=== PATIENT | female | born 1975 | race Caucasian/White ===

== ENCOUNTER → 2016-05-08 | Outpatient (CLI) | payer OTHER ==
[~2016-05-08] MED LIST: PRT40 PO; VTMD PO; ZTHM250 PO
--- NOTE | 2016-05-08 12:53 | DIAGNOSTIC IMAGING REPORT ---
CHEST 2 VIEWS ROUTINE CLINICAL HISTORY: Cough. COMPARISON STUDY: Chest radiograph March 04, 2016. FINDINGS: Lung volumes are normal. There is no pneumothorax or pleural effusion. Pulmonary vascularity is normal. Cardiac size is normal. Linear bibasilar opacities favor atelectasis. There is opacity along the right minor fissure. There is hazy right lower lung opacity. IMPRESSION: Increasing bibasilar opacities, predominantly linear in configuration. The linear opacities are consistent with atelectasis. Hazy right lower lung opacity likely reflects atelectasis although a mild infectious process could appear similar. Electronically signed by: Babatunde Back M.D. 05/08/2016 12:51 PM Dictated Date/Time: 05/08/2016 12:49 PM
[2016-05-08 13:23] LABS: BASO % 0.5 %; BASO ABS # 0.04 K/uL (0-0.2); COMPLETE YES; EOS % 3.5 %; HEMATOCRIT 42.9 % (37-47); IG% 0.1 %; LYMPH % 29.6 %; LYMPH ABS # 2.17 K/uL (1.2-3.4); MEAN CORPUSCULAR HEMOGLOBIN 28.5 pg (25-34); MEAN CORPUSCULAR HGB CONC 33.6 g/dl (32-36); MEAN PLATELET VOLUME 10.1 fL (7.4-10.4); MONO % 7.4 %; NEUT % 58.9 %; PLATELET COUNT 196 K/uL (130-400); RED BLOOD COUNT 5.05 M/uL (4.2-5.4); WHITE BLOOD COUNT 7.34 K/uL (4.8-10.8)
[2016-05-08 17:42] LABS: AST/SGOT 28 U/L (15-37); BLOOD UREA NITROGEN 6 mg/dl (7-18); BUN/CREATININE RATIO 12.8 (10-20); CALCIUM 9.5 mg/dl (8.5-10.1); CARBON DIOXIDE 25 mmol/L (21-32); CHLORIDE 107 mmol/L (98-107); CREATININE 0.49 mg/dl (0.60-1.20); GLUCOSE 106 mg/dl (70-99); SODIUM 142 mmol/L (136-145)
[2016-05-08 17:45] LABS: ALB/GLOB RATIO 0.9 (0.9-2); ALKALINE PHOSPHATASE 167 U/L (45-117); ALT/SGPT 37 U/L (12-78)
== END | disposition home or self-care (01) ==
LOC: C.RAD1850 11:52
PROVIDERS: ATTEND Internal Medicine
DX: R05 Cough (principal)

== ENCOUNTER 2016-06-12 15:18 | Inpatient (IN) | payer OTHER ==
[~2016-06-12] VITALS: Ht 162.6 cm; Wt 48.5 kg
[2016-06-12] VITALS (10 sets, daily range): BP systolic 112–120; BP diastolic 76–78; PULSE 65–101; TEMP 36.5–36.7; O2SAT 88–99; Ht 162.6 cm; Wt 48.5 kg
[~2016-06-12 15:18] MED LIST changes: +MIDAZOLAM HCL 1 MG/ML 2ML VIAL ONE; -PRT40 PO; -VTMD PO; -ZTHM250 PO
--- NOTE | 2016-06-12 16:00 | Endo History and Physical ---
History & Physical Date of Service: Jun 12, 2016. Chief Complaint: Duodenal ulcer Referring Physician: Dr. Alicea History of Present Illness 40 yo CF who presents for EGD secondary to duodenal ulcer. Past Surgical History Hx Cardiac Surgery: No Hx Internal Defibrillator: No Hx Pacemaker: No Hx Abdominal Surgery: No Hx Post-Op Nausea and Vomiting: No Hx Cancer Surgery: No Hx Thoracic Surgery: No Hx Orthopedic: No Hx Urinary Tract Surgery: No Social History Smoking Status: Current Every Day Smoker Hx Substance Use: No Hx Alcohol Use: No Allergies Coded Allergies: No Known Allergies (Verified , 03/21/16) Current Medications Reported Home Medications Medications Dose Route/Sig Max Daily Dose Days Date Category No Active Prescriptions or Reported Medications Rx Vital Signs Weight (Kilograms): 46 Height (Feet): 5 Height (Inches): 4 Date Time Temp Pulse Resp B/P Pulse Ox O2 Delivery O2 Flow Rate FiO2 06/12/16 15:36 36.4 90 16 121/79 97 Room Air Physical Exam General Appearance: WD/WN, no apparent distress Respiratory/Chest: Auscultation: breath sounds normal Cardiovascular: Heart Auscultation: RRR Abdomen: Bowel Sounds: normal Inspection & Palpation: soft, non-distended, no tenderness, guarding & rebound Assessment and Plan Assessment: 40 yo CF who presents for EGD secondary to duodenal ulcer. Plan: Proceed with EGD.
[2016-06-12] MEDS ORDERED: FLUMAZENIL 0.1 MG/1 ML 10 ML VIAL IV ONE (16:47)
--- NOTE | 2016-06-12 16:47 | DIAGNOSTIC IMAGING REPORT ---
CHEST ONE VIEW PORTABLE CLINICAL HISTORY: hypoxia dyspnea COMPARISON STUDY: 05/08/2016 FINDINGS: Interval left lower lobe infiltrate. Lungs otherwise appear clear. Diaphragms smooth. IMPRESSION: Left lower lobe infiltrate Electronically signed by: Aquilino Diallo M.D. 06/12/2016 4:45 PM Dictated Date/Time: 06/12/2016 4:45 PM
[2016-06-12] MEDS ORDERED: PROPOFOL IV EMULSION 10 MG/ML 20 ML VIAL IV ONE (16:48)
[2016-06-12] MEDS ORDERED: LIDOCAINE HCL 2% 2 ML VIAL (20MG/ML) ONE (16:48)
--- NOTE | 2016-06-12 17:12 | GI REPORT ---
Procedure Date: 06/12/2016 3:53 PM Procedure: Upper GI endoscopy Indications: Follow-up of acute duodenal ulcer Medicines: Monitored Anesthesia Care Complications: Hypoxia with persistent O2 sats in mid-80's despite [id number]. CXRay showed LLL infiltrate Contacted Dr. Garcia of Hospitalist team for Admission Estimated Blood Loss: Estimated blood loss: none. Procedure: Pre-Anesthesia Assessment: - Prior to the procedure, a History and Physical was performed, and patient medications and allergies were reviewed. The patient's tolerance of previous anesthesia was also reviewed. The risks and benefits of the procedure and the sedation options and risks were discussed with the patient. All questions were answered, and informed consent was obtained. Prior Anticoagulants: The patient has taken no previous anticoagulant or antiplatelet agents. ASA Grade Assessment: II - A patient with mild systemic disease. After reviewing the risks and benefits, the patient was deemed in satisfactory condition to undergo the procedure. After obtaining informed consent, the endoscope was passed under direct vision. Throughout the procedure, the patient's blood pressure, pulse, and oxygen saturations were monitored continuously. The Scope was introduced through the mouth, and advanced to the second part of duodenum. The upper GI endoscopy was accomplished without difficulty. The patient tolerated the procedure well. Findings: The esophagus was normal. A small hiatus hernia was present. The examined duodenum was normal. Impression: - Normal esophagus. - Small hiatus hernia. - Normal examined duodenum. - No specimens collected. Recommendation: - Resume previous diet. - Continue present medications. - Admit the patient to ICU for ongoing care. Nicolas Alejandro, DO 06/12/2016 5:11:29 PM This report has been signed electronically. Note Initiated On: 06/12/2016 3:53 PM I attest to the content of the Intraoperative Record and orders documented therein, exceptions below
[2016-06-12] MEDS ORDERED: SODIUM CHLORIDE 0.9% 1000ML 1,000 ML IV SCH (17:30)
[2016-06-12] MEDS ORDERED: ACETAMINOPHEN 325 MG TAB PO PRN (17:45)
[2016-06-12] MEDS ORDERED: ONDANSETRON INJ 2 MG/ML 2 ML VIAL IV PRN (17:45)
[2016-06-12 17:48] LABS: ISTAT ALLEN TEST Pass; ISTAT ARTERIAL BLOOD GAS HCO3 25 meq/L (19-24); ISTAT ARTERIAL BLOOD GAS PCO2 49 mmHg (35-46); ISTAT ARTERIAL BLOOD GAS PO2 46 mmHg (80-95); ISTAT ARTERIAL BLOOD GAS pH 7.33 (7.35-7.45); ISTAT CARBON DIOXIDE 27 mEq/l (24-31); ISTAT DELIVERY SYSTEM NonRb Mask; ISTAT FIO2 100 %; ISTAT SITE R Radial
[2016-06-12 17:48] LABS: ISTAT ALLEN TEST Pass; ISTAT ARTERIAL BLOOD GAS HCO3 28 meq/L (19-24); ISTAT ARTERIAL BLOOD GAS PCO2 60 mmHg (35-46); ISTAT ARTERIAL BLOOD GAS PO2 < 32 mmHg (80-95); ISTAT ARTERIAL BLOOD GAS pH 7.27 (7.35-7.45); ISTAT CARBON DIOXIDE 30 mEq/l (24-31); ISTAT DELIVERY SYSTEM NonRb Mask; ISTAT FIO2 100 %; ISTAT SITE R Radial
[2016-06-12 17:50] LABS: BASO % 0.2 %; BASO ABS # 0.02 K/uL (0-0.2); HEMATOCRIT 41.6 % (37-47); IG% 0.4 %; LYMPH % 24.9 %; LYMPH ABS # 2.59 K/uL (1.2-3.4); MEAN CELL VOLUME 87.8 fL (80-100); MEAN CORPUSCULAR HEMOGLOBIN 28.9 pg (25-34); MEAN PLATELET VOLUME 8.9 fL (7.4-10.4); MONO % 4.9 %; NEUT % 66.6 %; PLATELET COUNT 303 K/uL (130-400); RED BLOOD COUNT 4.74 M/uL (4.2-5.4); WHITE BLOOD COUNT 10.41 K/uL (4.8-10.8)
[2016-06-12 17:52] LABS: COMPLETE YES; MEAN CORPUSCULAR HGB CONC 32.9 g/dl (32-36)
--- NOTE | 2016-06-12 18:15 | Anesthesiology Progress Note ---
Anesthesia Post Op Note Date & Time Jun 12, 2016 at 17:49 Vital Signs Pain Intensity: 0 Vital Signs Past 12 Hours Date Time Temp Pulse Resp B/P Pulse Ox O2 Delivery O2 Flow Rate FiO2 06/12/16 17:46 85 91 100 06/12/16 17:45 85 17 91 BiPAP/CPAP 100 06/12/16 17:41 81 135/89 95 BiPAP 06/12/16 17:15 81 16 126/76 87 Non-Rebreather 15 06/12/16 16:50 79 16 113/78 89 Non-Rebreather 15 06/12/16 16:30 89 16 106/61 86 Mask 15 06/12/16 16:15 102 16 111/60 84 Mask 15 06/12/16 15:36 36.4 90 16 121/79 97 Room Air Notes Mental Status: alert / awake / arousable, participated in evaluation Pt Amnestic to Procedure: Yes Nausea / Vomiting: adequately controlled Pain: adequately controlled Airway Patency, RR, SpO2: see Notes BP & HR: stable & adequate Hydration State: stable & adequate Pt had EGD for f/u for duodenal ulcer under IV sedation. Pre-op, she appeared a little drowsy. She said that she slept all day and that this was her baseline. She appeared cachectic, her breathing appeared to be a little shallow, and her breath sounds were diminished b/l but clear. Pre-op sat 98% on RA. She is a 1 PPD smoker. She was appropriately NPO. The procedure was uneventful. Her sat was 99% on 10 L facemask during the procedure. Dr. Alejandro did have to suction a large amount of secretions from the oropharynx and esophagus during the procedure but there was no obvious aspiration event. Upon arrival in post-op recovery, she was noted to be hypoxic w/ sat of 85% on 10 L facemask. She was slightly more drowsy at this point than pre-op so we gave 0.2 mg flumazenil to reverse the midazolam she had received at the start of the procedure. She quickly became as awake as she was pre-op (if not more), talking, responsive. She said that she felt fine, no SOB, same as pre-op, same as her normal baseline. I ordered a CXR and switched her to a non-rebreathing facemask. On 15 L, her sat was 88%. We had her use an incentive spirometer. Her sat improved as high as 91% but then returned to the mid-high 90s. I spoke to Dr. Alejandro and decided to ask Medicine to see the pt. Dr. Garcia arrived soon thereafter. The CXR read came back as LLL infiltrate. Dr. Garcia wanted BiPAP, ABG, CBC, BMP, EKG, urine tox. In order to facilitate this, he asked a Johnnie Purple to be called. With BiPAP, the pt's sat improved to 97%. She's being admitted to Telemetry. BP and HR were always normal and stable. The etiology of the hypoxia is not certain, but I believe that an occult aspiration is most likely given the sudden onset after a procedure, the copious secretions seen during the procedure, and the LLL infiltrate (pt positioned on L side during the EGD). The pt is a smoker so will likely have an exaggerated response to even a tiny, subclinical aspirate. Dr. Garcia is starting the pt on prophylactic antibiotics.
[2016-06-12 18:24] LABS: ALB/GLOB RATIO 0.8 (0.9-2); ALKALINE PHOSPHATASE 253 U/L (45-117); ALT/SGPT 32 U/L (12-78); AST/SGOT 17 U/L (15-37); BLOOD UREA NITROGEN 4 mg/dl (7-18); BUN/CREATININE RATIO 8.6 (10-20); CALCIUM 9.3 mg/dl (8.5-10.1); CARBON DIOXIDE 26 mmol/L (21-32); CHLORIDE 109 mmol/L (98-107); CKMB/CK RATIO 2.1 (0-3.0); CREATININE 0.42 mg/dl (0.60-1.20); GLUCOSE 95 mg/dl (70-99); MAGNESIUM 2.3 mg/dl (1.8-2.4); POTASSIUM 4.1 mmol/L (3.5-5.1); SODIUM 144 mmol/L (136-145)
[2016-06-12] MEDS: LEVALBUTEROL 1.25MG/0.5ML NEB INH SCH (20:03)
[2016-06-12] MEDS: IPRATROPIUM BROMIDE NEB SOLN 0.02% 2.5 ML VIAL INH SCH (20:03)
[2016-06-12] MEDS ORDERED: LEVALBUTEROL/IPRATROPIUM NEB INH SCH (21:00)
[2016-06-12] MEDS ORDERED: VANCOMYCIN CONSULT ACTIVE PRN (21:30)
[2016-06-12] MEDS ORDERED: IPRATROPIUM BROMIDE NEB SOLN 0.02% 2.5 ML VIAL INH PRN (21:30)
[2016-06-12] MEDS ORDERED: LEVALBUTEROL 1.25MG/0.5ML NEB INH PRN (21:30)
--- NOTE | 2016-06-12 21:47 | Pharmacy Progress Note ---
Pharmacy Antibiotic Consult Date of Service: Jun 12, 2016. Pharmacy Dosing Scope Pharmacy is consulted to initiate [] IV dosing therapy, order appropriate labs and adjust drug dose/frequency. Subjective The patient is a 40 year old female admitted on Jun 12, 2016 at 17:31 ORDERED broad spectrum antibiotics (Vanc/Clinda/Aztreonam) for pulmonary source infection. Objective Height (Feet): 5 Height (Inches): 4 Weight (Kilograms): 46 Lab Results (24hrs): Laboratory Tests Test 06/12/16 17:40 BUN/Creatinine Ratio 8.6 Blood Urea Nitrogen 4 mg/dl Creatinine 0.42 mg/dl White Blood Count 10.41 K/uL Red Blood Count 4.74 M/uL Hemoglobin 13.7 g/dL Hematocrit 41.6 % Mean Corpuscular Volume 87.8 fL Mean Corpuscular Hemoglobin 28.9 pg Mean Corpuscular Hemoglobin Concent 32.9 g/dl Platelet Count 303 K/uL Mean Platelet Volume 8.9 fL Neutrophils (%) (Auto) 66.6 % Lymphocytes (%) (Auto) 24.9 % Monocytes (%) (Auto) 4.9 % Eosinophils (%) (Auto) 3.0 % Basophils (%) (Auto) 0.2 % Neutrophils # (Auto) 6.94 K/uL Lymphocytes # (Auto) 2.59 K/uL Monocytes # (Auto) 0.51 K/uL Eosinophils # (Auto) 0.31 K/uL Basophils # (Auto) 0.02 K/uL Recent Pertinent Medications * Clinda 900mg IV every 8 hours * Aztreonam 2 grams IV every 8 hours Assessment & Plan VANC-IV: * P'kinetics: Estimate Vd~0.7L/kg, Ke~0.111hr-1, T1/2~6.2hrs * Loading dose: VANC 1250mg (~25 mg/kg) IV X 1 dose then: * Maintenance Dose: VANC 800mg (~15 mg/kg) IV every 10 hours. * Goal trough level estimate: between 15 - 20 mcg/mL. * VANC trough prior to 4 th dose 06/14/16 0330. Pharmacy will continue to follow and will adjust dose/frequency as necessary. Thank you
[2016-06-12] MEDS: AZTREONAM IV 2,000 MG in DEXTROSE 5% 100ML 100 ML IV SCH (21:59)
[2016-06-12] MEDS ORDERED: VANCOMYCIN INJ 1,250 MG in SODIUM CHLORIDE 0.9% 250ML 250 ML IV ONE (23:00)
[2016-06-12] MEDS: CLINDAMYCIN IV 900 MG in DEXTROSE 5% ADD-VANTAGE 100ML 100 ML IV SCH (23:10)
[2016-06-13] VITALS (78 sets, daily range): BP systolic 88–153; BP diastolic 53–103; PULSE 73–222; TEMP 36.7–38.4; O2SAT 73–100
[2016-06-13 00:35] LABS: BASO % 0.1 %; BASO ABS # 0.02 K/uL (0-0.2); COMPLETE YES; EOS % 0.6 %; HEMATOCRIT 41.7 % (37-47); IG% 0.5 %; LYMPH ABS # 2.45 K/uL (1.2-3.4); MEAN CELL VOLUME 89.7 fL (80-100); MEAN CORPUSCULAR HEMOGLOBIN 29.7 pg (25-34); MEAN CORPUSCULAR HGB CONC 33.1 g/dl (32-36); MEAN PLATELET VOLUME 9.2 fL (7.4-10.4); NEUT % 83.8 %; PLATELET COUNT 352 K/uL (130-400); RED BLOOD COUNT 4.65 M/uL (4.2-5.4); WHITE BLOOD COUNT 22.35 K/uL (4.8-10.8)
[2016-06-13 00:43] LABS: IPAP 16; ISTAT ALLEN TEST Pass; ISTAT ARTERIAL BLOOD GAS HCO3 22 meq/L (19-24); ISTAT ARTERIAL BLOOD GAS PCO2 36 mmHg (35-46); ISTAT ARTERIAL BLOOD GAS PO2 81 mmHg (80-95); ISTAT ARTERIAL BLOOD GAS pH 7.39 (7.35-7.45); ISTAT CARBON DIOXIDE 23 mEq/l (24-31); ISTAT DELIVERY SYSTEM BIPAP; ISTAT FIO2 100 %; ISTAT SITE R Radial
[2016-06-13 00:49] LABS: BLOOD UREA NITROGEN 5 mg/dl (7-18); BUN/CREATININE RATIO 9.4 (10-20); CARBON DIOXIDE 25 mmol/L (21-32); CHLORIDE 109 mmol/L (98-107); CREATININE 0.48 mg/dl (0.60-1.20); GLUCOSE 152 mg/dl (70-99); SODIUM 145 mmol/L (136-145)
[2016-06-13 00:54] LABS: CKMB/CK RATIO 2.3 (0-3.0)
[2016-06-13] MEDS ORDERED: RAPID SEQUENCE INDUCTION BAG ONE (01:05)
[2016-06-13] MEDS ORDERED: SODIUM BICARB 8.4% INJ 50 MEQ/50 ML SYR - CCU EMERGENCY DRUG IV ONE (01:10)
[2016-06-13] MEDS ORDERED: PROPOFOL IV EMULSION 10 MG/ML 100 ML VIAL IV ONE (01:16)
[2016-06-13] MEDS ORDERED: NURSING VERBAL MED ORDER ONE (01:17)
[2016-06-13 01:20] LABS: BENZODIAZEPINE, URINE POS (NEG); COCAINE,URINE NEG (NEG); PHENCYCLIDINE, URINE NEG (NEG)
[2016-06-13] MEDS ORDERED: PHENYLEPHRINE IV PUSH KIT FOR ED IV ONE (01:54)
[2016-06-13 01:59] LABS: ISTAT ALLEN TEST Pass; ISTAT ARTERIAL BLOOD GAS HCO3 25 meq/L (19-24); ISTAT ARTERIAL BLOOD GAS PCO2 52 mmHg (35-46); ISTAT ARTERIAL BLOOD GAS PO2 55 mmHg (80-95); ISTAT CARBON DIOXIDE 27 mEq/l (24-31); ISTAT DELIVERY SYSTEM Ventilator; ISTAT FIO2 100 %; ISTAT PEEP 10; ISTAT RATE 16; ISTAT SITE R Radial; VE 5.8; Vt 400
--- NOTE | 2016-06-13 02:43 | Procedure Note ---
Procedure Note Procedure Date: 06/13/2016 Procedure: Endotracheal intubation Pre-procedure Diagnosis: Hypoxic respiratory failure Post-procedure Diagnosis: same as above Prior to Procedure: Informed Consent: emergent Attending Staff: Babs Dolan DO Indications: Hypoxic respiratory failure despite BiPAP and onto percent FiO2 The identity of the patient was confirmed and a bedside time out was performed. Anesthesia: 20 mg etomidate, 100 mg fentanyl, 40 mg succinylcholine Description of Procedure: Patient was evaluated and required intubation for respiratory failure. The patient was prepared in the usual fashion. A laryngoscope [place] 2 was used. A 7.5 Fr endotrachial tube was placed via direct laryngoscopy to 25 cm at the teeth. The endotracheal tube was noted to pass through the vocal cords. Chest rise was bilateral. Bilateral breath sounds were heard without air sounds in the abdomen. Grade 1 view was obtained. Mist was noted in the endotrachial tube. End-tidal CO2 measurement was positive. Chest x-ray shows proper endotrachial tube placement. Complications: None Findings: not applicable Specimens: not applicable Estimated blood loss: Zero
--- NOTE | 2016-06-13 02:46 | Procedure Note ---
Procedure Note Procedure date: 06/13/2016 Procedure: fiberoptic bronchoscopy Pre-procedure Diagnosis: Collapse of left lower lobe Post-procedure Diagnosis: same as above Prior to Procedure: Informed Consent: The risks, benefits, indications, potential complications, and alternatives were explained to the patient and informed consent obtained verbally. Attending Staff: Babs Dolan DO Skin Prep: Not applicable Anesthesia: Propofol continuous infusion, 100 g fentanyl Indications: Hypoxic respiratory failure despite 100% FiO2 as well as noninvasive mechanical ventilation. The identity of the patient was confirmed and a bedside time out was performed. Description of Procedure: Fiberoptic bronchoscopy was performed via endotracheal tube. Bronchioalveolar lavage was performed. Findings included: Significant tenacious mucopurulent secretions of the left lower lobe. 260 mL's of saline was utilized and lavage. Bronchial washings were sent. Patient had significant improvement and was satting 100% via 40% FiO2 immediately postprocedure Complications: None Specimens: Bronchial washing sent to lab for cytology culture and Gram stain, AFB, influenza Estimated blood loss: Zero
[2016-06-13] MEDS: IPRATROPIUM BROMIDE NEB SOLN 0.02% 2.5 ML VIAL INH SCH ×5 (02:57→19:06)
[2016-06-13] MEDS: LEVALBUTEROL 1.25MG/0.5ML NEB INH SCH ×5 (02:57→19:06)
[2016-06-13] MEDS: ACETYLCYSTEINE 20% INHAL SOLN ***DISPENSED BY RESP. INH SCH ×2 (02:57→07:59)
--- NOTE | 2016-06-13 03:04 | Critical Care Consultation ---
Critical Care Consultation Date of Consultation: Jun 13, 2016. Attending Physician: Sam Garcia M.D. Reason for Consultation: Acute hypoxic respiratory failure, atelectasis of left lower lobe History of Present Illness History is obtained from prior records, patient in extremis. Patient is a 40- year-old female who underwent an elective EGD earlier in the day for a history of a duodenal ulcer. She is noted to have hypoxia following the procedure and was admitted to the hospital for continued monitoring. I was consult is for higher persistent hypoxia despite noninvasive mechanical ventilation and 100% FiO2 with sats in the mid 80s. This was confirmed by blood gas. Upon my initial evaluation the patient was in obvious in extremis secondary to hypoxia, procedures including intubation and bronchoscopy were explained the patient she verbally consented, additionally emergent consent is implied. Patient was intubated, placed on 100% FiO2. Bronchoscopy was immediately undertaken and thick tenacious secretions were lavaged. Past Medical/Surgical History #1 history of duodenal ulcer #2 recent EGD #3 tobacco abuse Family History Heart disease Social History Smoking Status: Current Every Day Smoker Drug Use: none Marital Status: in relationship Housing Status: lives with family Occupation Status: unemployed Allergies Coded Allergies: No Known Allergies (Verified , 03/21/16) Home Medications No Active Prescriptions or Reported Meds Current Inpatient Medications Current Inpatient Medications Medications (Trade) Dose Ordered Sig/Oscar Route Start Time Stop Time Status Last Admin Dose Admin Clindamycin Phosphate/Dextrose (Cleocin Iv/ Dextrose Add-[place] 100ML) 106 ml @ 100 mls/hr Q8@0600,1400,2200 IV 06/12/16 22:00 06/19/16 21:59 06/12/16 23:10 100 MLS/HR Acetaminophen (Tylenol Tab) 650 mg Q4H PRN PO 06/12/16 17:45 07/12/16 17:44 Ondansetron HCl 4 mg 4 mg Q6H PRN IV 06/12/16 17:45 07/12/16 17:44 Aztreonam/Dextrose (Azactam IV/D5 100ml) 110 ml @ 100 mls/hr Q8@0400,1200,2000 IV 06/12/16 21:15 06/19/16 21:14 06/12/16 21:59 100 MLS/HR Vancomycin HCl (Consult) 1 ea UD PRN N/A 06/12/16 21:30 07/12/16 21:29 Ipratropium Onia (Atrovent 0.02% 0.5MG/2.5ML Neb) 0.5 mg Q6R INH 06/13/16 03:00 07/13/16 02:59 06/12/16 20:03 0.5 MG Levalbuterol (Xopenex 1.25MG/ 0.5ML Neb) 1.25 mg Q6R INH 06/13/16 03:00 07/13/16 02:59 06/12/16 20:03 1.25 MG Ipratropium Onia (Atrovent 0.02% 0.5MG/2.5ML Neb) 0.5 mg Q2H PRN INH 06/12/16 21:30 07/12/16 21:29 06/12/16 23:49 0.5 MG Levalbuterol (Xopenex 1.25MG/ 0.5ML Neb) 1.25 mg Q2H PRN INH 06/12/16 21:30 07/12/16 21:29 06/12/16 23:49 1.25 MG Influenza Virus Vaccine Quadrival (Flu Vaccine) 0.5 ml ONCE ONCE IM. 06/13/16 09:00 06/13/16 09:01 Pneumococcal Polysaccharide Vaccine 25 mcg 25 mcg ONCE ONCE IM. 06/13/16 09:00 06/13/16 09:01 Vancomycin HCl/ Sodium Chloride (Vancomycin Inj/ Nss 250ml) 266 ml @ 125 mls/hr Q10H IV 06/13/16 08:00 06/20/16 07:59 Acetylcysteine 4 ml 4 ml Q4H INH 06/13/16 02:45 07/13/16 02:44 UNV Parenteral Electrolyte Solution (Normosol R) 1,000 ml @ 100 mls/hr Q10H IV 06/13/16 02:45 07/13/16 02:44 UNV Review of Systems Unable to obtain due to patient condition Physical Exam Date Time Temp Pulse Resp B/P Pulse Ox O2 Delivery O2 Flow Rate FiO2 06/13/16 00:10 37.2 98 20 135/71 06/13/16 00:00 36.9 06/12/16 23:59 BiPAP 100 06/12/16 23:54 98 22 116/78 93 BiPAP 100 06/12/16 23:50 89 100 06/12/16 23:49 101 20 89 BiPAP/CPAP 100 06/12/16 23:43 88 100 06/12/16 20:05 71 99 100 06/12/16 20:03 71 20 99 BiPAP/CPAP 100 06/12/16 20:00 BiPAP 06/12/16 20:00 36.5 65 20 120/78 99 BiPAP 06/12/16 18:45 36.7 77 18 112/76 99 BiPAP 100 77 06/12/16 17:46 85 91 100 06/12/16 17:45 85 17 91 BiPAP/CPAP 100 06/12/16 17:41 81 135/89 95 BiPAP 06/12/16 17:15 81 16 126/76 87 Non-Rebreather 15 06/12/16 16:50 79 16 113/78 89 Non-Rebreather 15 06/12/16 16:30 89 16 106/61 86 Mask 15 06/12/16 16:15 102 16 111/60 84 Mask 15 06/12/16 15:36 36.4 90 16 121/79 97 Room Air General Appearance: severe distress, thin Head: normocephalic, atraumatic Eyes: PERRLA, no discharge ENT: normal mouth exam, normal throat exam, other (significant widespread dental caries) Neck: normal range of motion, no tenderness, trachea midline Respiratory: other (no breath sounds obtained of her left lower lobe) Cardiovasular: regular rate/rhythm, normal S1S2, no M/G/R Abdomen: non tender, normal bowel sounds Genitourinary - Female: external genitalia normal Upper Extremities: no edema Lower Extremities: no edema Pulses: radial (R) (2+), radial (L) (2+), femoral (R) (2+), femoral (L) (2+) Neuro: lethargic Laboratory Results Last 24 Hours Test 06/12/16 17:31 06/12/16 17:35 06/12/16 17:40 06/12/16 23:00 Blood Gas Sample Site R Radial R Radial Bedside Blood Gas pH (LAB) 7.27 7.33 Bedside Blood Gas pCO2 (LAB) 60 mmHg 49 mmHg Bedside Blood Gas pO2 (LAB) < 32 mmHg 46 mmHg Bedside Blood Gas HCO3 (LAB) 28 meq/L 25 meq/L Bedside Blood Gas Total CO2 30 mEq/l 27 mEq/l Bedside Blood Gas Base Excess (LAB) 1.0 meq/L -1.0 meq/L Bedside Blood Gas O2 Saturation 50.0 % 78.0 % Salbador Test Pass Pass Oxygen Delivery Device NonRb Mask NonRb Mask Bedside FiO2 100 % 100 % White Blood Count 10.41 K/uL Red Blood Count 4.74 M/uL Hemoglobin 13.7 g/dL Hematocrit 41.6 % Mean Corpuscular Volume 87.8 fL Mean Corpuscular Hemoglobin 28.9 pg Mean Corpuscular Hemoglobin Concent 32.9 g/dl Platelet Count 303 K/uL Mean Platelet Volume 8.9 fL Neutrophils (%) (Auto) 66.6 % Lymphocytes (%) (Auto) 24.9 % Monocytes (%) (Auto) 4.9 % Eosinophils (%) (Auto) 3.0 % Basophils (%) (Auto) 0.2 % Neutrophils # (Auto) 6.94 K/uL Lymphocytes # (Auto) 2.59 K/uL Monocytes # (Auto) 0.51 K/uL Eosinophils # (Auto) 0.31 K/uL Basophils # (Auto) 0.02 K/uL RDW Standard Deviation 53.0 fL RDW Coefficient of Variation 16.4 % Immature Granulocyte % (Auto) 0.4 % Immature Granulocyte # (Auto) 0.04 K/uL Sodium Level 144 mmol/L Potassium Level 4.1 mmol/L Chloride Level 109 mmol/L Carbon Dioxide Level 26 mmol/L Anion Gap 9.0 mmol/L Blood Urea Nitrogen 4 mg/dl Creatinine 0.42 mg/dl Est Creatinine Clear Calc Drug Dose 129.3 ml/min Estimated GFR () 148.6 Estimated GFR (Non- 128.2 BUN/Creatinine Ratio 8.6 Random Glucose 95 mg/dl Calcium Level 9.3 mg/dl Magnesium Level 2.3 mg/dl Total Bilirubin 0.3 mg/dl Aspartate Amino Transf (AST/SGOT) 17 U/L Alanine Aminotransferase (ALT/SGPT) 32 U/L Alkaline Phosphatase 253 U/L Total Creatine Kinase 118 U/L Creatine Kinase MB 2.5 ng/ml Creatine Kinase MB Ratio 2.1 Troponin I < 0.015 ng/ml Total Protein 7.5 gm/dl Albumin 3.4 gm/dl Globulin 4.1 gm/dl Albumin/Globulin Ratio 0.8 Urine Opiates Screen NEG Urine Methadone, Qualitative NEG Urine Barbiturates NEG Urine Phencyclidine (PCP) Level NEG Ur Amphetamine/Methamphetamine NEG MDMA (Ecstasy) Screen NEG Urine Benzodiazepines Screen POS Urine Cocaine Metabolite NEG Urine Marijuana (THC) POS Test 06/13/16 00:20 06/13/16 00:26 06/13/16 01:46 06/13/16 02:46 White Blood Count 22.35 K/uL Red Blood Count 4.65 M/uL Hemoglobin 13.8 g/dL Hematocrit 41.7 % Mean Corpuscular Volume 89.7 fL Mean Corpuscular Hemoglobin 29.7 pg Mean Corpuscular Hemoglobin Concent 33.1 g/dl Platelet Count 352 K/uL Mean Platelet Volume 9.2 fL Neutrophils (%) (Auto) 83.8 % Lymphocytes (%) (Auto) 11.0 % Monocytes (%) (Auto) 4.0 % Eosinophils (%) (Auto) 0.6 % Basophils (%) (Auto) 0.1 % Neutrophils # (Auto) 18.73 K/uL Lymphocytes # (Auto) 2.45 K/uL Monocytes # (Auto) 0.90 K/uL Eosinophils # (Auto) 0.14 K/uL Basophils # (Auto) 0.02 K/uL RDW Standard Deviation 53.9 fL RDW Coefficient of Variation 16.4 % Immature Granulocyte % (Auto) 0.5 % Immature Granulocyte # (Auto) 0.11 K/uL Sodium Level 145 mmol/L Potassium Level 4.0 mmol/L Chloride Level 109 mmol/L Carbon Dioxide Level 25 mmol/L Anion Gap 11.0 mmol/L Blood Urea Nitrogen 5 mg/dl Creatinine 0.48 mg/dl Est Creatinine Clear Calc Drug Dose 123.7 ml/min Estimated GFR () 142.2 Estimated GFR (Non- 122.7 BUN/Creatinine Ratio 9.4 Random Glucose 152 mg/dl Lactic Acid Level 1.3 mmol/L Calcium Level 9.0 mg/dl Total Creatine Kinase 111 U/L Creatine Kinase MB 2.5 ng/ml Creatine Kinase MB Ratio 2.3 Troponin I < 0.015 ng/ml Blood Gas Sample Site R Radial R Radial Bedside Blood Gas pH (LAB) 7.39 7.30 Bedside Blood Gas pCO2 (LAB) 36 mmHg 52 mmHg Bedside Blood Gas pO2 (LAB) 81 mmHg 55 mmHg Bedside Blood Gas HCO3 (LAB) 22 meq/L 25 meq/L Bedside Blood Gas Total CO2 23 mEq/l 27 mEq/l Bedside Blood Gas Base Excess (LAB) -3.0 meq/L -1.0 meq/L Bedside Blood Gas O2 Saturation 96.0 % 83.0 % Salbador Test Pass Pass Oxygen Delivery Device BIPAP Ventilator Bedside FiO2 100 % 100 % Blood Gas IPAP 16 Bedside Oxygen Rate (breaths/min) 16 Blood Gas Minute Ventilation 5.8 Blood Gas Tidal Volume 400 Blood Gas PEEP 10 Assessment & Plan (1) Tobacco abuse (2) Acute respiratory insufficiency, postoperative (3) Atelectasis of left lung (4) Acute respiratory failure with hypoxia (5) History of esophagogastroduodenoscopy (EGD) (6) Marijuana smoker Neuro: Propofol for sedation Cardiovascular: Cardiac monitoring Respiratory: May require repeat bronchoscopy, mechanical ventilator settings tidal volume 400 PEEP of 15 FiO2 of 60% - Mucomyst nebs as well as bronchodilators - Aggressive chest physiotherapy Abdomen: - Nothing by mouth NG tube in place Renal: -Fluids 100 MLS per hour Endocrine: - Accu-Cheks per protocol Infectious disease - On vancomycin and clindamycin aztreonam - Await BAL results - Check influenza from bronchial washings Hematology - Currently menstruating - Prophylaxis I have personally spent 40 minutes of critical care time in the direct management of this patient. This is a life/limb threatening event. This includes time spent evaluating patient, direct bedside care, chart review, placing orders, interpretation of diagnostic studies, discussion with consultants, patient, and family members, as well as other required patient management activities. This time is exclusive of all separately billable procedures, and teaching time and separate from and in addition to any other critical care service time.
[2016-06-13 03:29] LABS: ISTAT ALLEN TEST Pass; ISTAT ARTERIAL BLOOD GAS HCO3 25 meq/L (19-24); ISTAT ARTERIAL BLOOD GAS PCO2 69 mmHg (35-46); ISTAT ARTERIAL BLOOD GAS PO2 127 mmHg (80-95); ISTAT ARTERIAL BLOOD GAS pH 7.15 (7.35-7.45); ISTAT CARBON DIOXIDE 27 mEq/l (24-31); ISTAT DELIVERY SYSTEM Ventilator; ISTAT FIO2 60 %; ISTAT PEEP 15; ISTAT RATE 16; ISTAT SITE R Radial; VE 7.3; Vt 400
[2016-06-13] MEDS: NORMOSOL R 1,000 ML IV SCH ×3 (03:42→23:30)
--- NOTE | 2016-06-13 03:49 | History and Physical ---
History & Physical Date & Time of Service: Jun 13, 2016 at 03:40 Chief Complaint: Doudenal Ulcer Primary Care Physician: Loyd Alicea M.D. History of Present Illness Source: patient The patient is a 40-year-old female who underwent an EGD in the endoscopy suite at the hospital, who became hypoxic with O2 sat into the upper 70s, and with improvement with arm percent nonrebreather into the 86-87 range. I was called to the endoscopy suite assessed the patient, who reported that she did not feel she is having any difficulty breathing, and has not had any issues with shortness of breath in the past or required any inhalers. Chest x-ray ordered by the endoscopy suite revealed a left lower lobe pneumonia when compared to previous chest x-rays, and plans were made to admit the patient to the telemetry unit for further treatment. Because of her declining condition, a code bhavana was called, she was placed on BiPAP, and then admitted to the telemetry unit. Past Medical/Surgical History Medical Problems: (1) Arthritis Status: Chronic (2) Scoliosis Status: Chronic Family History Heart disease Social History Smoking Status: Current Every Day Smoker Drug Use: none Marital Status: in relationship Housing status: lives with family Occupational Status: unemployed Multi-Drug Resistant Organisms History of MDRO: No Allergies Coded Allergies: No Known Allergies (Verified , 03/21/16) Home Medications No Active Prescriptions or Reported Meds Review of Systems The patient denies chest pain, palpitations, shortness of breath, cough, lower extremity swelling, vision change, hearing change, sore throat, fevers, chills, sweats, weight change, fatigue, nausea, vomiting, abdominal pain, pelvic pain, blood in urine or stool, dysuria, urinary frequency or urgency, lightheadedness , dizziness, headache, memory loss, rash, abnormal bruising or bleeding, imbalance, focal or generalized weakness, numbness or tingling in arms or legs, arthralgias or myalgias, back or neck pain, night sweats, or allergy symptoms. The review of systems is otherwise negative other than for that already noted above, and at least 10 systems have been reviewed. Physical Exam Vital Signs Date Time Temp Pulse Resp B/P Pulse Ox O2 Delivery O2 Flow Rate FiO2 06/13/16 03:15 60 06/13/16 02:57 16 92 Mechanical Ventilator 60 06/13/16 01:30 100 06/13/16 00:10 37.2 98 20 135/71 06/13/16 00:00 36.9 06/12/16 23:59 BiPAP 100 06/12/16 23:54 98 22 116/78 93 BiPAP 100 06/12/16 23:50 89 100 06/12/16 23:49 101 20 89 BiPAP/CPAP 100 06/12/16 23:43 88 100 06/12/16 20:05 71 99 100 06/12/16 20:03 71 20 99 BiPAP/CPAP 100 06/12/16 20:00 BiPAP 06/12/16 20:00 36.5 65 20 120/78 99 BiPAP 06/12/16 18:45 36.7 77 18 112/76 99 BiPAP 100 77 06/12/16 17:46 85 91 100 06/12/16 17:45 85 17 91 BiPAP/CPAP 100 06/12/16 17:41 81 135/89 95 BiPAP 06/12/16 17:15 81 16 126/76 87 Non-Rebreather 15 06/12/16 16:50 79 16 113/78 89 Non-Rebreather 15 06/12/16 16:30 89 16 106/61 86 Mask 15 06/12/16 16:15 102 16 111/60 84 Mask 15 06/12/16 15:36 36.4 90 16 121/79 97 Room Air The patient is awake, alert and oriented 3, appears cachectic, sitting upright in bed, and in mild to moderate respiratory distress. HEENT--PERRL, EOMI, mucous membranes and oropharynx dry, very poor dentition noted. Neck--supple, no JVD or bruits, thyroid normal, trachea midline, no adenopathy. Heart--normal S1 and S2, no extra beats, no murmurs, rubs or gallops. Lungs--decreased breath sounds at bilateral bases, mild respiratory distress, no accessory muscle use. Abdomen--normal bowel sounds and soft, nontender and nondistended, no hernias or masses, no organomegaly. Extremities--no cyanosis, clubbing or edema. There are good distal pulses b/l. Dermatologic--normal skin turgor, normal color, warm and dry, no abnormal lymph nodes, no rash. Neurologic--cranial nerves II through XII grossly intact, motor and sensory examination normal. Rheumatologic--normal range of motion, nontender, muscles and joints. Psychiatric--flat affect. Diagnostics Laboratory Results Results Past 24 Hours Test 06/12/16 17:31 06/12/16 17:35 06/12/16 17:40 06/12/16 23:00 Range/Units Blood Gas Sample Site R Radial R Radial Bedside Blood Gas pH (LAB) 7.27 7.33 7.35-7.45 Bedside Blood Gas pCO2 (LAB) 60 49 35-46 mmHg Bedside Blood Gas pO2 (LAB) < 32 46 80-95 mmHg Bedside Blood Gas HCO3 (LAB) 28 25 19-24 meq/L Bedside Blood Gas Total CO2 30 27 24-31 mEq/l Bedside Blood Gas Base Excess (LAB) 1.0 -1.0 -9-1.8 meq/L Bedside Blood Gas O2 Saturation 50.0 78.0 90-95 % Salbador Test Pass Pass Oxygen Delivery Device NonRb Mask NonRb Mask Bedside FiO2 100 100 % White Blood Count 10.41 4.8-10.8 K/uL Red Blood Count 4.74 4.2-5.4 M/uL Hemoglobin 13.7 12.0-16.0 g/dL Hematocrit 41.6 37-47 % Mean Corpuscular Volume 87.8 80-100 fL Mean Corpuscular Hemoglobin 28.9 25-34 pg Mean Corpuscular Hemoglobin Concent 32.9 32-36 g/dl Platelet Count 303 130-400 K/uL Mean Platelet Volume 8.9 7.4-10.4 fL Neutrophils (%) (Auto) 66.6 % Lymphocytes (%) (Auto) 24.9 % Monocytes (%) (Auto) 4.9 % Eosinophils (%) (Auto) 3.0 % Basophils (%) (Auto) 0.2 % Neutrophils # (Auto) 6.94 1.4-6.5 K/uL Lymphocytes # (Auto) 2.59 1.2-3.4 K/uL Monocytes # (Auto) 0.51 0.11-0.59 K/uL Eosinophils # (Auto) 0.31 0-0.5 K/uL Basophils # (Auto) 0.02 0-0.2 K/uL RDW Standard Deviation 53.0 36.4-46.3 fL RDW Coefficient of Variation 16.4 11.5-14.5 % Immature Granulocyte % (Auto) 0.4 % Immature Granulocyte # (Auto) 0.04 0.00-0.02 K/uL Sodium Level 144 136-145 mmol/L Potassium Level 4.1 3.5-5.1 mmol/L Chloride Level 109 98-107 mmol/L Carbon Dioxide Level 26 21-32 mmol/L Anion Gap 9.0 3-11 mmol/L Blood Urea Nitrogen 4 7-18 mg/dl Creatinine 0.42 0.60-1.20 mg/dl Est Creatinine Clear Calc Drug Dose 129.3 ml/min Estimated GFR () 148.6 Estimated GFR (Non- 128.2 BUN/Creatinine Ratio 8.6 10-20 Random Glucose 95 70-99 mg/dl Calcium Level 9.3 8.5-10.1 mg/dl Magnesium Level 2.3 1.8-2.4 mg/dl Total Bilirubin 0.3 0.2-1 mg/dl Aspartate Amino Transf (AST/SGOT) 17 15-37 U/L Alanine Aminotransferase (ALT/SGPT) 32 12-78 U/L Alkaline Phosphatase 253 45-117 U/L Total Creatine Kinase 118 26-192 U/L Creatine Kinase MB 2.5 0.5-3.6 ng/ml Creatine Kinase MB Ratio 2.1 0-3.0 Troponin I < 0.015 0-0.045 ng/ml Total Protein 7.5 6.4-8.2 gm/dl Albumin 3.4 3.4-5.0 gm/dl Globulin 4.1 2.5-4.0 gm/dl Albumin/Globulin Ratio 0.8 0.9-2 Urine Opiates Screen NEG NEG Urine Methadone, Qualitative NEG NEG Urine Barbiturates NEG NEG Urine Phencyclidine (PCP) Level NEG NEG Ur Amphetamine/Methamphetamine NEG NEG MDMA (Ecstasy) Screen NEG NEG Urine Benzodiazepines Screen POS NEG Urine Cocaine Metabolite NEG NEG Urine Marijuana (THC) POS NEG Test 06/13/16 00:20 06/13/16 00:26 06/13/16 01:46 06/13/16 02:46 Range/Units White Blood Count 22.35 4.8-10.8 K/uL Red Blood Count 4.65 4.2-5.4 M/uL Hemoglobin 13.8 12.0-16.0 g/dL Hematocrit 41.7 37-47 % Mean Corpuscular Volume 89.7 80-100 fL Mean Corpuscular Hemoglobin 29.7 25-34 pg Mean Corpuscular Hemoglobin Concent 33.1 32-36 g/dl Platelet Count 352 130-400 K/uL Mean Platelet Volume 9.2 7.4-10.4 fL Neutrophils (%) (Auto) 83.8 % Lymphocytes (%) (Auto) 11.0 % Monocytes (%) (Auto) 4.0 % Eosinophils (%) (Auto) 0.6 % Basophils (%) (Auto) 0.1 % Neutrophils # (Auto) 18.73 1.4-6.5 K/uL Lymphocytes # (Auto) 2.45 1.2-3.4 K/uL Monocytes # (Auto) 0.90 0.11-0.59 K/uL Eosinophils # (Auto) 0.14 0-0.5 K/uL Basophils # (Auto) 0.02 0-0.2 K/uL RDW Standard Deviation 53.9 36.4-46.3 fL RDW Coefficient of Variation 16.4 11.5-14.5 % Immature Granulocyte % (Auto) 0.5 % Immature Granulocyte # (Auto) 0.11 0.00-0.02 K/uL Sodium Level 145 136-145 mmol/L Potassium Level 4.0 3.5-5.1 mmol/L Chloride Level 109 98-107 mmol/L Carbon Dioxide Level 25 21-32 mmol/L Anion Gap 11.0 3-11 mmol/L Blood Urea Nitrogen 5 7-18 mg/dl Creatinine 0.48 0.60-1.20 mg/dl Est Creatinine Clear Calc Drug Dose 123.7 ml/min Estimated GFR () 142.2 Estimated GFR (Non- 122.7 BUN/Creatinine Ratio 9.4 10-20 Random Glucose 152 70-99 mg/dl Lactic Acid Level 1.3 0.4-2.0 mmol/L Calcium Level 9.0 8.5-10.1 mg/dl Total Creatine Kinase 111 26-192 U/L Creatine Kinase MB 2.5 0.5-3.6 ng/ml Creatine Kinase MB Ratio 2.3 0-3.0 Troponin I < 0.015 0-0.045 ng/ml Blood Gas Sample Site R Radial R Radial Bedside Blood Gas pH (LAB) 7.39 7.30 7.35-7.45 Bedside Blood Gas pCO2 (LAB) 36 52 35-46 mmHg Bedside Blood Gas pO2 (LAB) 81 55 80-95 mmHg Bedside Blood Gas HCO3 (LAB) 22 25 19-24 meq/L Bedside Blood Gas Total CO2 23 27 24-31 mEq/l Bedside Blood Gas Base Excess (LAB) -3.0 -1.0 -9-1.8 meq/L Bedside Blood Gas O2 Saturation 96.0 83.0 90-95 % Salbador Test Pass Pass Oxygen Delivery Device BIPAP Ventilator Bedside FiO2 100 100 % Blood Gas IPAP 16 Bedside Oxygen Rate (breaths/min) 16 Blood Gas Minute Ventilation 5.8 Blood Gas Tidal Volume 400 Blood Gas PEEP 10 Test 06/13/16 03:15 06/13/16 03:20 Range/Units Blood Gas Sample Site R Radial Bedside Blood Gas pH (LAB) 7.15 7.35-7.45 Bedside Blood Gas pCO2 (LAB) 69 35-46 mmHg Bedside Blood Gas pO2 (LAB) 127 80-95 mmHg Bedside Blood Gas HCO3 (LAB) 25 19-24 meq/L Bedside Blood Gas Total CO2 27 24-31 mEq/l Bedside Blood Gas Base Excess (LAB) -5.0 -9-1.8 meq/L Bedside Blood Gas O2 Saturation 98.0 90-95 % Salbador Test Pass Oxygen Delivery Device Ventilator Bedside Oxygen Rate (breaths/min) 16 Blood Gas Minute Ventilation 7.3 Bedside FiO2 60 % Blood Gas Tidal Volume 400 Blood Gas PEEP 15 Microbiology Results 06/13/16 Fungal Smear, Received Pending 06/13/16 Fungal Culture, Received Pending 06/13/16 Acid Fast Stain, Received Pending 06/13/16 Mycobacterial Culture, Received Pending 06/13/16 Gram Stain, Received Pending 06/13/16 Bronchoalveolar Lavage Culture, Received Pending Diagnostic Radiology Patient Name: IAN RENDON Unit Number: [id number] Dictated: 06/12/161644 Transcribed: 06/12/161644 MS Printed Date/Time: [~ rep prt dt]/[~ rep prt tm] [~ rep ct labl] - [~ rep ct ivnm] [facility] [place] [address] Dictated: 06/12/161644 Transcribed: 02/16/17 1645 MS Printed Date/Time: [~ rep prt dt]/[~ rep prt tm] [~ rep ct labl] - [~ rep ct ivnm] CHEST ONE VIEW PORTABLE CLINICAL HISTORY: hypoxia dyspnea COMPARISON STUDY: 05/08/2016 FINDINGS: Interval left lower lobe infiltrate. Lungs otherwise appear clear. Diaphragms smooth. IMPRESSION: Left lower lobe infiltrate Electronically signed by: Aquilino Diallo M.D. 06/12/2016 4:45 PM Dictated Date/Time: 06/12/2016 4:45 PM The status of this report is Signed. Draft = Not yet reviewed or approved by Radiologist. Signed = Reviewed and approved by Radiologist. <AttendingPhy>Nicolas Alejandro D.O.</AttendingPhy> <FamilyPhy>Loyd Alicea M.D.</FamilyPhy> <PrimaryPhy>Loyd Alicea M.D.</ PrimaryPhy> <UnitNumber>[id number]</UnitNumber> <VisitNumber>[id number]</ VisitNumber> <PatientName>IAN RENDON</PatientName> <DateOfBirth>1975 </DateOfBirth> <Location>[facility]</Location> <ServiceDate>06/12/16</ServiceDate> < MNE>ESINDI</MNE> <OrderingPhy>Nicolas Sierra M.D.</OrderingPhy> < OrderingPhyMNE>f rep ord dr enriquez</OrderingPhyMNE> <DictatingPhyMNE>f rep dict dr enriquez</DictatingPhyMNE> <CCListMNE>f rep ct mne</CCListMNE> <AdmittingPhyMNE>f pt admit dr enriquez</AdmittingPhyMNE> <AttendingPhyMNE>f pt attend dr enriquez</ AttendingPhyMNE> <ConsultingPhyMNE>f pt consult dr enriquez</ConsultingPhyMNE> <FamilyPhyMNE>f pt fam dr enriquez</FamilyPhyMNE> <OtherPhyMNE>f pt other dr enriquez</OtherPhyMNE> < PrimaryPhyMNE>f pt prim care dr enriquez</PrimaryPhyMNE> <ReferringPhyMNE>f pt referring dr enriquez</ReferringPhyMNE> EKG EKG shows normal sinus rhythm at 85 bpm, left bundle-branch block, no acute ST- T changes. Impression Assessment and Plan Acute respiratory failure with hypoxia/Left lower lobe pneumonia/probable aspiration during endoscopy/poor dentition--the patient willbe admitted to the telemetry unit on BiPAP. She'll be started vancomycin IV, clindamycin 900 mg IV every 8 hours, aztreonam 2000 mg IV every 8 hours, Xopenex with Atrovent nebulizers to use every 6 hours while awake and every 2 hours when necessary. We'll also follow serial cardiac enzymes. Emergent CBC with differential, chemistry profile, magnesium levels and cardiac enzymes have been sent during the code purple. Left bundle-branch block, noted on EKG with no other acute findings, we'll follow cardiac enzymes as noted. Duodenal ulcer history--she'll be kept nothing by mouth for now, and placed on Protonix [address] on normal saline at 80 ML's per hour until laboratories return. Level of Care Telemetry Advanced Directives Existing Advance Directive: No Existing Living Will: No Existing Power of Electronics Engineer: No Resuscitation Status FULL RESUSCITATION VTE Prophylaxis VTE Risk Assessment Done? Y/N: Yes Risk Level: Moderate Given or contraindicated: SCD's Social Service Consult None Apply
[2016-06-13] MEDS ORDERED: DIGOXIN INJ 500 MCG/2 ML AMP ONE (03:58)
[2016-06-13] MEDS: AZTREONAM IV 2,000 MG in DEXTROSE 5% 100ML 100 ML IV SCH ×2 (03:58→11:34)
[2016-06-13] MEDS: CLINDAMYCIN IV 900 MG in DEXTROSE 5% ADD-VANTAGE 100ML 100 ML IV SCH (05:13)
[2016-06-13] MEDS ORDERED: ACETAMINOPHEN IV 650 MG in EMPTY BAG 0 ML IV PRN (05:15)
--- NOTE | 2016-06-13 05:21 | Progress Note ---
Progress Note I was paged at approximately 23:34, on 06/12/2016. Patient was noted to be hypoxic, with oxygen saturations in the 70s while on BiPAP. Mrs. Pryor was admitted earlier in the day to telemetry, following an EGD procedure follow-up of duodenal ulcer; per report there were no abnormal findings. She was noted in the PACU to be hypoxic, and was initially placed on nasal cannula at 10 L. As this did not work she is progressed to facemask, and eventually BiPAP. Please see anesthesia progress note full course of events. She was transferred to telemetry on BiPAP settings 16/8, 100% FiO2. Into the evening, respiratory therapy was able to wean FiO2 down to 60% with oxygen saturations in the high 90s. However, at approximately 23:15, she was noted to be hypoxic, with saturations dropping into the 70s. Respiratory therapy increased FiO2 back to 100%, but were only able to improve oxygen saturation to the mid 80s I arrived at the to the bedside to assess the patient: SUBJECTIVE: The patient couldn't unfortunately not communicate, she had BiPAP on. She denied other chest pain or abdominal pain. OBJECTIVE: Item Value Date Time Fraction of Inspired Oxygen (FiO2) 100 % Oxygen 06/12/162353 Oxygen Delivery Method BiPAP 06/12/162353 Vital Signs Label Value Date Time Blood Pressure Assessment 116/78 06/12/162353 Location Left Arm Source NIBP Position Supine Respiratory Rate 22 06/12/162353 Pulse 98 06/12/162353 Location Radial Bedside Pulse Oximetry 93 % 06/12/162353 Oxygen saturation 88% Gen. inspection: Moderate distress, no pain Cardiac exam: S1 and S2 with no added sounds or murmurs. Heart sounds difficult to auscultate due to BiPAP. Respiratory exam: Diminished breath sounds at the left base; there is no evidence of wheezing Chest x-ray: Left lower lobe consolidation appears to have progressed, the left hemidiaphragm appears slightly elevated Possible presence of pleural effusion versus atelectasis at the left base There doesn't appear to be any evidence of free air under the diaphragm CT chest noncontrast: Left lower lobe atelectasis, secondary to mucous plugging versus aspiration ASSESSMENT/PLAN: 4-year-old female, status post EGD with postprocedure hypoxia with respiratory decompensation while on BiPAP. Chest x-ray did show progression of the left lower lobe opacification was diagnosed post-EGD earlier in the day. This most likely represents aspiration pneumonitis versus pneumonia Given that she is post-EGD, the concern would be for either esophageal perforation and chylothorax, or whether this was simply aspiration with mucus plugging. I did initially change her BiPAP settings to assist with alveolar recruitment at the left base. Her PEEP was increased from 8 -->10; pressure support remained at 16, FiO2 remained 100%. We did note that her oxygen saturations did improve to 92%. I discussed the case with Joshua Clark. More detailed imaging was warranted, so a stat chest CT without contrast was ordered. Stat read report indicated that there was left lower lobe collapse likely secondary to mucous plugging versus aspiration. Noncontrast CT of the abdomen was also done which fortunately ruled out perforation Patient was noted in the CT scanner, to desaturate into the 70s while lying supine. At this point we felt it was appropriate consult the resistance welder, Dr. Jose Moe, for intubation and possible bronchoscopy. Report was given to Dr. Moe over the phone, who excepted the patient to the ICU service. Patient was transferred immediately to the intensive care unit for further management.
[2016-06-13 05:38] LABS: ISTAT ALLEN TEST Pass; ISTAT ARTERIAL BLOOD GAS HCO3 24 meq/L (19-24); ISTAT ARTERIAL BLOOD GAS PCO2 61 mmHg (35-46); ISTAT ARTERIAL BLOOD GAS PO2 160 mmHg (80-95); ISTAT ARTERIAL BLOOD GAS pH 7.21 (7.35-7.45); ISTAT CARBON DIOXIDE 26 mEq/l (24-31); ISTAT DELIVERY SYSTEM Ventilator; ISTAT FIO2 60 %; ISTAT PEEP 15; ISTAT RATE 22; ISTAT SITE R Radial; Vt 400
[2016-06-13] MEDS ORDERED: PROPOFOL IV EMULSION 10 MG/ML 100 ML VIAL IV SCH (05:45)
[2016-06-13 06:43] LABS: BASO % 0.1 %; BASO ABS # 0.02 K/uL (0-0.2); COMPLETE YES; EOS % 0.1 %; HEMATOCRIT 38.4 % (37-47); IG% 0.2 %; LYMPH % 7.8 %; LYMPH ABS # 1.34 K/uL (1.2-3.4); MEAN CELL VOLUME 91.2 fL (80-100); MEAN CORPUSCULAR HEMOGLOBIN 29.5 pg (25-34); MEAN CORPUSCULAR HGB CONC 32.3 g/dl (32-36); MEAN PLATELET VOLUME 9.5 fL (7.4-10.4); NEUT % 86.8 %; PLATELET COUNT 285 K/uL (130-400); RED BLOOD COUNT 4.21 M/uL (4.2-5.4); WHITE BLOOD COUNT 17.23 K/uL (4.8-10.8)
[2016-06-13 06:50] LABS: INR 1.1 (0.9-1.1); PROTHROMBIN TIME (PATIENT) 11.3 SECONDS (9.0-12.0)
[2016-06-13 07:16] LABS: BUN/CREATININE RATIO 7.4 (10-20); CALCIUM 7.6 mg/dl (8.5-10.1); CREATININE 0.62 mg/dl (0.60-1.20); POTASSIUM 3.7 mmol/L (3.5-5.1)
--- NOTE | 2016-06-13 07:36 | DIAGNOSTIC IMAGING REPORT ---
CT OF THE ABDOMEN AND PELVIS WITHOUT CONTRAST CLINICAL HISTORY: Hypoxemia status post EGD. Duodenal ulcer. Evaluate for free air. COMPARISON STUDY: No previous studies for comparison. TECHNIQUE: Axial images of the abdomen and pelvis were obtained without IV contrast. Images were reviewed in the axial, sagittal, and coronal planes. FINDINGS: The chest will be reported separately. Lower lobe collapse with volume loss is better depicted on the chest CT. No pneumatosis, free air or portal venous gas is present. Evaluation of the abdomen and pelvis is suboptimal given the lack of IV and oral contrast. Unenhanced images of the liver, spleen, adrenal glands, kidneys and pancreas are normal. There is no evidence for a bowel obstruction calcifications adjacent to the proximal right ureter likely reflect phleboliths. A 3.1 cm suspected right ovarian cyst is noted. No suspicious osseous lesions are present. IMPRESSION: 1. No pneumoperitoneum. 2. Left lower lobe collapse, better depicted on the chest CT. Please see that report for further discussion. 3. 3.1 cm suspected right ovarian cyst. A follow-up pelvic ultrasound in 6 weeks to ensure resolution is recommended. Electronically signed by: Babatunde Back M.D. 06/13/2016 7:35 AM Dictated Date/Time: 06/13/2016 7:26 AM
--- NOTE | 2016-06-13 07:45 | DIAGNOSTIC IMAGING REPORT ---
SINGLE VIEW CHEST CLINICAL HISTORY: Dyspnea. Hypoxia. FINDINGS: An AP, portable, upright chest radiograph is compared to study dated 06/12/16. The examination is degraded by portable technique and patient rotation. The cardiomediastinal silhouette is unremarkable. There is unchanged elevation of the left hemidiaphragm with left basilar consolidation. Patchy airspace opacities are present in the left upper lung. The right lung appears clear. A left pleural effusion is suspected. No pneumothorax is seen. The skeletal structures are osteopenic. The bony thorax is grossly intact. IMPRESSION: 1. Unchanged elevation of the left hemidiaphragm with dense left basilar consolidation and pleural effusion. 2. More patchy airspace consolidation is seen in left upper lobe. Correlate clinically for evidence of an infectious/inflammatory pneumonitis. 3. The right lung appears clear. Electronically signed by: Titi Guidry M.D. 06/13/2016 7:44 AM Dictated Date/Time: 06/13/2016 7:42 AM
[2016-06-13] MEDS ORDERED: FENTANYL CITRATE INJ 50 MCG/1 ML 2 ML VIAL IV ONE (07:47)
[2016-06-13] MEDS ORDERED: SODIUM CHLORIDE 0.9% INJ 10 ML VIAL IV ONE (07:47)
[2016-06-13] MEDS ORDERED: SUCCINYLCHOLINE CHLORIDE 20 MG/ML 10 ML VIAL IV ONE (07:47)
[2016-06-13] MEDS ORDERED: ETOMIDATE 2 MG/ML 20 ML VIAL IV ONE (07:47)
[2016-06-13] MEDS ORDERED: SODIUM CHLORIDE 0.9% 10ML FLUSH IV ONE (07:47)
[2016-06-13] MEDS ORDERED: VECURONIUM BROMIDE 10 MG VIAL IV ONE (07:47)
[2016-06-13] MEDS ORDERED: VANCOMYCIN INJ 800 MG in SODIUM CHLORIDE 0.9% 250ML 250 ML IV SCH (08:00)
--- NOTE | 2016-06-13 08:03 | DIAGNOSTIC IMAGING REPORT ---
SINGLE VIEW CHEST CLINICAL HISTORY: Intubation. FINDINGS: An AP, portable, supine chest radiograph is compared to study dated 06/12/16 and correlated with chest CT performed the same day 06/13/2016. The examination is degraded by portable technique and patient rotation. An endotracheal tube has been placed. The tip projects 3.8 cm above the noris. An enteric tube has been placed and terminates below the diaphragm. The cardiomediastinal silhouette is unremarkable. There has been reexpansion of the left lung. Airspace consolidation is again noted throughout the left lung and a small left pleural effusion persists. The right lung is grossly clear. No pneumothorax is seen. The bony thorax is grossly intact. IMPRESSION: 1. Endotracheal and enteric tubes have been placed as detailed above. 2. There has been significant reexpansion of the left lower lobe as compared to yesterday's examination. 3. Airspace consolidation is again seen throughout the left lung and there is a small left pleural effusion. Electronically signed by: Titi Guidry M.D. 06/13/2016 8:01 AM Dictated Date/Time: 06/13/2016 7:59 AM
--- NOTE | 2016-06-13 08:04 | DIAGNOSTIC IMAGING REPORT ---
SINGLE VIEW CHEST CLINICAL HISTORY: Respiratory failure. FINDINGS: 2 AP, portable, upright chest radiographs are compared to chest x-ray and chest CT performed the same day 06/13/2016. The examination is degraded by portable technique and patient rotation, as well as by overlying monitor leads. Endotracheal and enteric tubes are unchanged in position. The cardiomediastinal silhouette is unremarkable. Patchy airspace consolidation is again seen throughout the left lung. A trace left pleural effusion persists. The right lung is grossly clear. No pneumothorax is seen. The bony thorax is grossly intact. IMPRESSION: 1. Stable lines and tubes. 2. Patchy airspace consolidation is again seen throughout the left lung. A trace left pleural effusion persists. Electronically signed by: Titi Guidry M.D. 06/13/2016 8:03 AM Dictated Date/Time: 06/13/2016 8:01 AM
--- NOTE | 2016-06-13 08:15 | Anesthesiology Progress Note ---
Anesthesia Post Op Note Date & Time Jun 13, 2016 at 08:12 Vital Signs Pain Intensity: 0.0 Vital Signs Past 12 Hours Date Time Temp Pulse Resp B/P Pulse Ox O2 Delivery O2 Flow Rate FiO2 06/13/16 05:25 60 06/13/16 05:09 108 110/59 100 06/13/16 05:04 60 06/13/16 05:03 100 104/62 100 06/13/16 04:58 100 102/58 100 06/13/16 04:53 100 105/62 100 06/13/16 04:48 101 109/62 100 06/13/16 04:45 100 100 06/13/16 04:43 101 115/65 100 06/13/16 04:38 102 117/65 100 06/13/16 04:33 111 140/79 100 06/13/16 04:28 100 112/73 88 06/13/16 04:23 100 112/68 06/13/16 04:18 112 122/85 06/13/16 04:13 222 105/64 96 06/13/16 04:08 100 110/72 82 06/13/16 04:03 97 100/67 100 06/13/16 04:00 Mechanical Ventilator 60 06/13/16 04:00 60 06/13/16 03:58 98 123/70 100 06/13/16 03:53 95 97/61 100 06/13/16 03:48 93 95/62 100 06/13/16 03:45 94 100 06/13/16 03:43 94 94/58 100 06/13/16 03:38 93 93/58 100 06/13/16 03:33 94 92/58 100 06/13/16 03:28 93 95/58 100 06/13/16 03:23 94 93/58 100 06/13/16 03:18 96 99/60 100 06/13/16 03:15 60 06/13/16 03:13 105 124/74 06/13/16 03:12 109 111/84 06/13/16 03:08 96 90/59 100 06/13/16 03:03 92 96/56 100 06/13/16 02:58 92 109/61 100 06/13/16 02:57 16 92 Mechanical Ventilator 60 06/13/16 02:53 97 109/70 100 06/13/16 02:48 100 116/82 100 06/13/16 02:45 90 113/64 98 06/13/16 02:33 93 118/73 89 06/13/16 02:28 90 104/66 91 06/13/16 02:23 83 88/53 98 06/13/16 02:20 85 93/57 100 06/13/16 02:18 88 103/66 96 06/13/16 02:18 88 103/66 96 06/13/16 02:13 83 93/55 100 06/13/16 02:08 83 97/61 100 06/13/16 02:03 81 115/81 06/13/16 02:00 94 87 06/13/16 01:58 99 143/86 85 06/13/16 01:53 86 91/58 89 06/13/16 01:48 98 129/89 91 06/13/16 01:44 88 97/70 73 06/13/16 01:43 88 100/72 78 06/13/16 01:38 96 113/76 83 06/13/16 01:33 92 102/61 84 06/13/16 01:30 100 06/13/16 01:28 95 153/103 80 06/13/16 01:23 113 116/79 87 06/13/16 01:18 106 113/70 92 06/13/16 01:13 118 118/75 82 06/13/16 01:08 115 119/77 79 06/13/16 01:06 117 120/77 79 06/13/16 01:04 122 120/77 78 06/13/16 00:10 37.2 98 20 135/71 06/13/16 00:00 36.9 06/12/16 23:59 BiPAP 100 06/12/16 23:54 98 22 116/78 93 BiPAP 100 06/12/16 23:50 89 100 06/12/16 23:49 101 20 89 BiPAP/CPAP 100 06/12/16 23:43 88 100 Notes Mental Status: see Notes Patient intubated during EGD and ventilated and bronched through the night.....improving steadily, will be extubated later this morning...vitals stable.
[2016-06-13] MEDS: ENOXAPARIN 30 MG/0.3 ML SYR SQ SCH (08:32)
--- NOTE | 2016-06-13 08:56 | DIAGNOSTIC IMAGING REPORT ---
CT SCAN OF THE CHEST WITHOUT IV CONTRAST CLINICAL HISTORY: Hypoxia. Status post endoscopy. COMPARISON STUDY: Chest x-ray dated 06/12/2016 and 05/08/2016. TECHNIQUE: CT scan of the thorax was performed from the thoracic inlet to the upper abdomen. Images are reviewed in the axial, sagittal, and coronal planes. IV contrast was not administered for this examination. CT DOSE: 202.95 mGy.cm FINDINGS: Thyroid: Imaged portions of the thyroid gland are normal in size and attenuation. Thoracic aorta: The thoracic aorta is normal in caliber and demonstrates standard 3-vessel arch anatomy. Heart: The heart is normal in size and without pericardial effusion. Lungs and pleural spaces: There is occlusion of the left lower lobe bronchus. There is associated atelectasis of the left lower lobe with elevation of the left hemidiaphragm. Patchy airspace consolidation is noted throughout the left upper lobe. A small left pleural effusion is identified. There is mild compensatory hyperinflation of the right lung. A 4 mm pulmonary nodule is seen in the right middle lobe on image #[id number]. The right lung is otherwise clear. Layering debris is noted in the trachea. Mediastinum: There is no mediastinal lymphadenopathy. Elizabeth: Not well assessed without IV contrast. Axillae: There is no axillary lymphadenopathy. Upper abdomen: Partially visualized upper abdominal viscera is within normal limits. Skeletal structures: No lytic or blastic bony lesions are seen. IMPRESSION: 1. There is occlusion of the left lower lobe bronchus with complete atelectasis/consolidation of the left lower lobe and elevation of the left hemidiaphragm. 2. Patchy airspace consolidation is seen throughout the left upper lobe and there is a left pleural effusion. This likely represents an infectious/inflammatory pneumonitis, possibly related to aspiration. 3. The right lung is clear. 4. A 4 mm right middle lobe pulmonary nodule is indeterminate but of low suspicion. This can be followed if clinically warranted. See below. Please refer to below summary of Fleischner criteria recommendations for follow-up of incidental CT nodules (Madie Benoit, Guidelines for management of small pulmonary nodules detected on CT scans: A statement from the Fleischner Society, Radiology 237: [phone].) Low Risk Patient: Minimal or no smoking or other known risk factors for malignancy <=4 mm: No follow-up needed. >4-6 mm: Initial follow-up CT at 12 months; if unchanged, no further follow-up. >6-8 mm: Initial follow-up CT at 6-12 months then at 18-24 months if no change. >8 mm: Follow-up CT at \R\3, 9, 24 months, or PET and/or biopsy. High Risk Patient: History of smoking or other known risk factors <=4 mm: Follow-up at 12 months; if unchanged, no further follow-up. >4-6 mm: Initial follow-up CT at 6-12 months then at 18-24 months if no change. >6-8 mm: Initial follow-up CT at 3-6 months then at 9-12 and 24 months if no change. >8 mm: Same as low risk patient. Note: Nodule size measured as average of length and width. Ground glass or partly solid nodules may require longer follow-up to exclude indolent adenocarcinoma. Electronically signed by: Titi Guidry M.D. 06/13/2016 8:55 AM Dictated Date/Time: 06/13/2016 8:49 AM
[2016-06-13] MEDS ORDERED: INFLUENZA ADMINISTRATION CHARGE ONE (09:00)
[2016-06-13] MEDS ORDERED: PNEUMOCOCCAL ADMINISTRATION CHARGE ONE (09:00)
[2016-06-13] MEDS ORDERED: PNEUMOCOCCAL POLYSACCHARIDES 25 MCG/0.5 ML VIAL/SYR IM. ONE (09:00)
[2016-06-13] MEDS ORDERED: INFLUENZA VIRUS QUAD VACCINE 0.5 ML SYR IM. ONE (09:00)
[2016-06-13 09:40] LABS: INFLUENZA A PCR Neg for Influ A (NEG); INFLUENZA B PCR Neg for Influ B (NEG)
--- NOTE | 2016-06-13 10:52 | Critical Care Progress Note ---
Critical Care Progress Note Date of Service Jun 13, 2016. ICU Day ICU Day Number: [address] Dolan Subjective Loulou Pryor is a 40-year-old female who presented in extreme respiratory distress several hours after an elective EGD for history of duodenal ulcer. Her hypoxia over the course the day continued to increase until she was ultimately referred here for the ICU with saturations in the mid 80s on 100% FiO2 via BiPAP. After confirming by ABG patient was intubated and brought by Dr. Dolan who stated that he lavaged thick secretions. This morning she met criteria to be extubated and is on Oxy-Mask at 12 L which is up approximately 57-89% FiO2. She appears extremely wiped out, arouses to verbal stimuli will answer questions by nodding her head with an occasional verbal response. She states that she is in no pain and is not short of breath. She states she does have a dry cough other than that she has no complaints. She denies fever and chills, chest pain or pressure, abdominal pain, numbness or tingling to the extremities. She continues nothing by mouth at this time due to excessive sleepiness/remaining sedation. A fever this morning of 38.4 broke after receiving IV Tylenol and is 37.2 now. Objective Vital Signs - as noted Laboratory Data - as noted Physical Exam: General - NAD, excessively worn out and lethargic Eyes - PERRL, EOMI No icterus, gaze conjugate ENT - Mucosa dry, no lesions or candidiasis Neck - Supple, trachea midline, no masses or lymphadenopathy, no JVD or bruits Lungs - No paradoxical chest wall movement, clear to auscultation bilaterally, no wheezes, rales, or rhonchi Heart - Reg rate and rhythm, No murmur, rubs, clicks, or gallops appreciated Abdomen - BS present, no bruits noted, tympanic to percussion, soft, nontender, nondistended, no organomegaly Extremities - No edema, pedal pulses intact Neuro - A&O X 4 Strength extremities equal and appropriate bilaterally CN:PERRL, EOMI, no facial asymmetry, uvula/tongue midline Assessment & Plan (1) Tobacco abuse (2) Acute respiratory insufficiency, postoperative (3) Atelectasis of left lung (4) Acute respiratory failure with hypoxia (5) History of esophagogastroduodenoscopy (EGD) (6) Marijuana smoker Reason Critically Ill: Patient is an 40-year-old female who is transferred to the ICU for increasing hypoxia status post elective EGD. She required bronchoscopy and lavage of thick secretions. PLAN: Neuro: * IV Tylenol in place for fever; may also be contributing to purine-free state according patient * Very drowsy but alert and oriented 4 Resp: * Continue to titrate down oxy-mask * Chest x-ray demonstrates patchy airspace consolidation left lung and trace left pleural effusion persists * Continue antibiotics, Bronchial Washing Cultures Pending * Vancomycin 800 mg IV every 10 hours * Clindamycin 900 mg IV every 8 hours * Aztreonam 2000 mg IV every 8 hours * Continue percussion vest and respiratory regimen * Mucomyst, Atrovent, Xopenex every 4 hours; when necessary's are also in place CV: * Continue to monitor on telemetry; slightly hypotensive currently SBP 105 Fluids/Renal: BUN: 5/Cr: 0.62, I&O's +1.5L * Howard in place; adequate output * Continue Normosol at 100 mL per hour * Monitor daily labs ID: Tmax 38.4, now 37.2, WBCs 17.23 (previously 22.35) * Continue antibiotics; pending bronchial washing Cultures * Vancomycin 800 mg IV every 10 hours * Clindamycin 900 mg IV every 8 hours * Aztreonam 2000 mg IV every 8 hours GI/Nutrition: * Continual IV fluids; consider restarting diet with bedside swallow when patient is more alert * Discontinue Protonix Prophylaxis, Now Extubated Heme: H&H 12.4/38.4; platelets 285 DVT prophylaxis: Lovenox 30 mg subcutaneous daily Endocrine: Glucose: 95-152 * Accu-Checks per protocol, started insulin infusion for 2 blood sugars greater than 180 CCT: 45 Minutes; This time is exclusive of all separately billable procedures. Thank you for involving us in the care of this patient. Please refer to Dr. Dolan's addendum for further recommendations. I have personally evaluated and examined this patient. I agree with assessment and plan of Diogenes Clancy PA-C. Patient extubated early this morning ABG significantly improved. Repeat chest x -ray demonstrated significant improvement in left lower lobe atelectasis. After extubation patient again becoming progressively hypoxic. Obtain CT chest to rule out pulmonary embolism, significant collapse of the left lower lobe again. Hepatic aggressive pulmonary toilet and chest physiotherapy. Reportedly the patient had been seen recently for pneumonia. On CT there is fluid in the esophagus, accordingly I am going to treat the patient with azithromycin for a community-acquired pneumonia which will also help with gastric emptying and possible dysmotility. I have also ordered dose of Reglan at this time. They're going to encourage ambulation, incentive spirometry, as well as a flutter valve in an effort to prevent further left lower lobe atelectasis. Patient is at risk for respiratory failure and possible requiring a subsequent bronchoscopy. The 45 minutes of critical care time is in addition to the 40 minutes performed from 1 AM to 3 AM this morning. Consults & Procedures Procedures: Intubated: 06/12/16 Bronchoscopy: 06/12/16 Extubated: 06/13/16 Data Medications: Current Inpatient Medications Medications (Trade) Dose Ordered Sig/Oscar Route Start Time Stop Time Status Last Admin Dose Admin Clindamycin Phosphate/Dextrose (Cleocin Iv/ Dextrose Add-[place] 100ML) 106 ml @ 100 mls/hr Q8@0600,1400,2200 IV 06/12/16 22:00 06/19/16 21:59 06/13/16 05:13 100 MLS/HR Acetaminophen (Tylenol Tab) 650 mg Q4H PRN PO 06/12/16 17:45 07/12/16 17:44 Ondansetron HCl 4 mg 4 mg Q6H PRN IV 06/12/16 17:45 07/12/16 17:44 Aztreonam/Dextrose (Azactam IV/D5 100ml) 110 ml @ 100 mls/hr Q8@0400,1200,2000 IV 06/12/16 21:15 06/19/16 21:14 06/13/16 03:58 100 MLS/HR Vancomycin HCl (Consult) 1 ea UD PRN N/A 06/12/16 21:30 07/12/16 21:29 Ipratropium [place] (Atrovent 0.02% 0.5MG/2.5ML Neb) 0.5 mg Q2H PRN INH 06/12/16 21:30 07/12/16 21:29 06/12/16 23:49 0.5 MG Levalbuterol 1.25 mg 1.25 mg Q2H PRN INH 06/12/16 21:30 07/12/16 21:29 06/12/16 23:49 1.25 MG Vancomycin HCl 800 mg/Sodium Chloride 266 ml @ 125 mls/hr Q10H IV 06/13/16 08:00 06/20/16 07:59 06/13/16 08:32 125 MLS/HR Parenteral Electrolyte Solution (Normosol R) 1,000 ml @ 100 mls/hr Q10H IV 06/13/16 03:30 07/13/16 03:29 06/13/16 03:42 100 MLS/HR Enoxaparin Sodium 30 mg 30 mg QAM SQ 06/13/16 09:00 07/13/16 08:59 06/13/16 08:32 30 MG Pantoprazole Sodium 40 mg/ Syringe 10 ml @ 5 mls/min DAILY@11 IV 06/13/16 11:00 07/13/16 10:59 Acetaminophen/ Empty Bag (Ofirmev IV/ Empty Iv Bag 100ml) 65 ml @ 260 mls/hr Q6H PRN IV 06/13/16 05:15 07/13/16 05:14 06/13/16 08:31 260 MLS/HR Propofol (Diprivan Iv Emulsion 100ml Vial) 1 dose UD IV 06/13/16 05:45 06/16/16 05:44 06/13/16 05:36 1 DOSE Ipratropium [place] (Atrovent 0.02% 0.5MG/2.5ML Neb) 0.5 mg Q4R INH 06/13/16 08:00 07/13/16 07:59 Levalbuterol (Xopenex 1.25MG/ 0.5ML Neb) 1.25 mg Q4R INH 06/13/16 08:00 07/13/16 07:59 I & O: 24-Hour Column 06/13/16 07:59 Intake Total 1762 ml Output Total 250 ml Balance 1512 ml Vital Signs: Date Time Temp Pulse Resp B/P Pulse Ox O2 Delivery O2 Flow Rate FiO2 06/13/16 10:00 37.2 74 16 103/57 96 Mask 12.0 06/13/16 08:30 40 06/13/16 08:00 60 06/13/16 08:00 40 06/13/16 08:00 38.4 86 20 94/56 97 Mechanical Ventilator 60 06/13/16 08:00 97 Mechanical Ventilator 60 06/13/16 07:55 86 97 06/13/16 05:25 60 06/13/16 05:09 108 110/59 100 06/13/16 05:04 60 06/13/16 05:03 100 104/62 100 06/13/16 04:58 100 102/58 100 06/13/16 04:53 100 105/62 100 06/13/16 04:48 101 109/62 100 06/13/16 04:45 100 100 06/13/16 04:43 101 115/65 100 06/13/16 04:38 102 117/65 100 06/13/16 04:33 111 140/79 100 06/13/16 04:28 100 112/73 88 06/13/16 04:23 100 112/68 06/13/16 04:18 112 122/85 06/13/16 04:13 222 105/64 96 06/13/16 04:08 100 110/72 82 06/13/16 04:03 97 100/67 100 06/13/16 04:00 Mechanical Ventilator 60 06/13/16 04:00 60 06/13/16 03:58 98 123/70 100 06/13/16 03:53 95 97/61 100 06/13/16 03:48 93 95/62 100 06/13/16 03:45 94 100 06/13/16 03:43 94 94/58 100 06/13/16 03:38 93 93/58 100 06/13/16 03:33 94 92/58 100 06/13/16 03:28 93 95/58 100 06/13/16 03:23 94 93/58 100 06/13/16 03:18 96 99/60 100 06/13/16 03:15 60 06/13/16 03:13 105 124/74 06/13/16 03:12 109 111/84 06/13/16 03:08 96 90/59 100 06/13/16 03:03 92 96/56 100 06/13/16 02:58 92 109/61 100 06/13/16 02:57 16 92 Mechanical Ventilator 60 06/13/16 02:53 97 109/70 100 06/13/16 02:48 100 116/82 100 06/13/16 02:45 90 113/64 98 06/13/16 02:33 93 118/73 89 06/13/16 02:28 90 104/66 91 06/13/16 02:23 83 88/53 98 06/13/16 02:20 85 93/57 100 06/13/16 02:18 88 103/66 96 06/13/16 02:18 88 103/66 96 06/13/16 02:13 83 93/55 100 06/13/16 02:08 83 97/61 100 06/13/16 02:03 81 115/81 06/13/16 02:00 94 87 06/13/16 01:58 99 143/86 85 06/13/16 01:53 86 91/58 89 06/13/16 01:48 98 129/89 91 06/13/16 01:44 88 97/70 73 06/13/16 01:43 88 100/72 78 06/13/16 01:38 96 113/76 83 06/13/16 01:33 92 102/61 84 06/13/16 01:30 100 06/13/16 01:28 95 153/103 80 06/13/16 01:23 113 116/79 87 06/13/16 01:18 106 113/70 92 06/13/16 01:13 118 118/75 82 06/13/16 01:08 115 119/77 79 06/13/16 01:06 117 120/77 79 06/13/16 01:04 122 120/77 78 06/13/16 00:10 37.2 98 20 135/71 06/13/16 00:00 36.9 06/12/16 23:59 BiPAP 100 06/12/16 23:54 98 22 116/78 93 BiPAP 100 06/12/16 23:50 89 100 06/12/16 23:49 101 20 89 BiPAP/CPAP 100 06/12/16 23:43 88 100 06/12/16 20:05 71 99 100 06/12/16 20:03 71 20 99 BiPAP/CPAP 100 06/12/16 20:00 BiPAP 06/12/16 20:00 36.5 65 20 120/78 99 BiPAP 06/12/16 18:45 36.7 77 18 112/76 99 BiPAP 100 77 06/12/16 17:46 85 91 100 06/12/16 17:45 85 17 91 BiPAP/CPAP 100 06/12/16 17:41 81 135/89 95 BiPAP 06/12/16 17:15 81 16 126/76 87 Non-Rebreather 15 06/12/16 16:50 79 16 113/78 89 Non-Rebreather 15 06/12/16 16:30 89 16 106/61 86 Mask 15 06/12/16 16:15 102 16 111/60 84 Mask 15 06/12/16 15:36 36.4 90 16 121/79 97 Room Air Laboratory Results: Last 24 Hours Test 06/12/16 17:31 06/12/16 17:35 06/12/16 17:40 06/12/16 23:00 Blood Gas Sample Site R Radial R Radial Bedside Blood Gas pH (LAB) 7.27 7.33 Bedside Blood Gas pCO2 (LAB) 60 mmHg 49 mmHg Bedside Blood Gas pO2 (LAB) < 32 mmHg 46 mmHg Bedside Blood Gas HCO3 (LAB) 28 meq/L 25 meq/L Bedside Blood Gas Total CO2 30 mEq/l 27 mEq/l Bedside Blood Gas Base Excess (LAB) 1.0 meq/L -1.0 meq/L Bedside Blood Gas O2 Saturation 50.0 % 78.0 % [place]ador Test Pass Pass Oxygen Delivery Device NonRb Mask NonRb Mask Bedside FiO2 100 % 100 % White Blood Count 10.41 K/uL Red Blood Count 4.74 M/uL Hemoglobin 13.7 g/dL Hematocrit 41.6 % Mean Corpuscular Volume 87.8 fL Mean Corpuscular Hemoglobin 28.9 pg Mean Corpuscular Hemoglobin Concent 32.9 g/dl Platelet Count 303 K/uL Mean Platelet Volume 8.9 fL Neutrophils (%) (Auto) 66.6 % Lymphocytes (%) (Auto) 24.9 % Monocytes (%) (Auto) 4.9 % Eosinophils (%) (Auto) 3.0 % Basophils (%) (Auto) 0.2 % Neutrophils # (Auto) 6.94 K/uL Lymphocytes # (Auto) 2.59 K/uL Monocytes # (Auto) 0.51 K/uL Eosinophils # (Auto) 0.31 K/uL Basophils # (Auto) 0.02 K/uL RDW Standard Deviation 53.0 fL RDW Coefficient of Variation 16.4 % Immature Granulocyte % (Auto) 0.4 % Immature Granulocyte # (Auto) 0.04 K/uL Sodium Level 144 mmol/L Potassium Level 4.1 mmol/L Chloride Level 109 mmol/L Carbon Dioxide Level 26 mmol/L Anion Gap 9.0 mmol/L Blood Urea Nitrogen 4 mg/dl Creatinine 0.42 mg/dl Est Creatinine Clear Calc Drug Dose 129.3 ml/min Estimated GFR () 148.6 Estimated GFR (Non- 128.2 BUN/Creatinine Ratio 8.6 Random Glucose 95 mg/dl Calcium Level 9.3 mg/dl Magnesium Level 2.3 mg/dl Total Bilirubin 0.3 mg/dl Aspartate Amino Transf (AST/SGOT) 17 U/L Alanine Aminotransferase (ALT/SGPT) 32 U/L Alkaline Phosphatase 253 U/L Total Creatine Kinase 118 U/L Creatine Kinase MB 2.5 ng/ml Creatine Kinase MB Ratio 2.1 Troponin I < 0.015 ng/ml Total Protein 7.5 gm/dl Albumin 3.4 gm/dl Globulin 4.1 gm/dl Albumin/Globulin Ratio 0.8 Urine Opiates Screen NEG Urine Methadone, Qualitative NEG Urine Barbiturates NEG Urine Phencyclidine (PCP) Level NEG Ur Amphetamine/Methamphetamine NEG MDMA (Ecstasy) Screen NEG Urine Benzodiazepines Screen POS Urine Cocaine Metabolite NEG Urine Marijuana (THC) POS Test 06/13/16 00:00 06/13/16 00:20 06/13/16 00:26 06/13/16 01:46 Influenza Type A (RT-PCR) Neg for Influ A Influenza Type B (RT-PCR) Neg for Influ B White Blood Count 22.35 K/uL Red Blood Count 4.65 M/uL Hemoglobin 13.8 g/dL Hematocrit 41.7 % Mean Corpuscular Volume 89.7 fL Mean Corpuscular Hemoglobin 29.7 pg Mean Corpuscular Hemoglobin Concent 33.1 g/dl Platelet Count 352 K/uL Mean Platelet Volume 9.2 fL Neutrophils (%) (Auto) 83.8 % Lymphocytes (%) (Auto) 11.0 % Monocytes (%) (Auto) 4.0 % Eosinophils (%) (Auto) 0.6 % Basophils (%) (Auto) 0.1 % Neutrophils # (Auto) 18.73 K/uL Lymphocytes # (Auto) 2.45 K/uL Monocytes # (Auto) 0.90 K/uL Eosinophils # (Auto) 0.14 K/uL Basophils # (Auto) 0.02 K/uL RDW Standard Deviation 53.9 fL RDW Coefficient of Variation 16.4 % Immature Granulocyte % (Auto) 0.5 % Immature Granulocyte # (Auto) 0.11 K/uL Sodium Level 145 mmol/L Potassium Level 4.0 mmol/L Chloride Level 109 mmol/L Carbon Dioxide Level 25 mmol/L Anion Gap 11.0 mmol/L Blood Urea Nitrogen 5 mg/dl Creatinine 0.48 mg/dl Est Creatinine Clear Calc Drug Dose 123.7 ml/min Estimated GFR () 142.2 Estimated GFR (Non- 122.7 BUN/Creatinine Ratio 9.4 Random Glucose 152 mg/dl Lactic Acid Level 1.3 mmol/L Calcium Level 9.0 mg/dl Total Creatine Kinase 111 U/L Creatine Kinase MB 2.5 ng/ml Creatine Kinase MB Ratio 2.3 Troponin I < 0.015 ng/ml Blood Gas Sample Site R Radial R Radial Bedside Blood Gas pH (LAB) 7.39 7.30 Bedside Blood Gas pCO2 (LAB) 36 mmHg 52 mmHg Bedside Blood Gas pO2 (LAB) 81 mmHg 55 mmHg Bedside Blood Gas HCO3 (LAB) 22 meq/L 25 meq/L Bedside Blood Gas Total CO2 23 mEq/l 27 mEq/l Bedside Blood Gas Base Excess (LAB) -3.0 meq/L -1.0 meq/L Bedside Blood Gas O2 Saturation 96.0 % 83.0 % [place] Test Pass Pass Oxygen Delivery Device BIPAP Ventilator Bedside FiO2 100 % 100 % Blood Gas IPAP 16 Bedside Oxygen Rate (breaths/min) 16 Blood Gas Minute Ventilation 5.8 Blood Gas Tidal Volume 400 Blood Gas PEEP 10 Test 06/13/16 03:15 06/13/16 05:19 06/13/16 05:55 06/13/16 09:16 Blood Gas Sample Site R Radial R Radial Bedside Blood Gas pH (LAB) 7.15 7.21 Bedside Blood Gas pCO2 (LAB) 69 mmHg 61 mmHg Bedside Blood Gas pO2 (LAB) 127 mmHg 160 mmHg Bedside Blood Gas HCO3 (LAB) 25 meq/L 24 meq/L Bedside Blood Gas Total CO2 27 mEq/l 26 mEq/l Bedside Blood Gas Base Excess (LAB) -5.0 meq/L -4.0 meq/L Bedside Blood Gas O2 Saturation 98.0 % 99.0 % [place] Test Pass Pass Oxygen Delivery Device Ventilator Ventilator Bedside Oxygen Rate (breaths/min) 16 22 Blood Gas Minute Ventilation 7.3 Bedside FiO2 60 % 60 % Blood Gas Tidal Volume 400 400 Blood Gas PEEP 15 15 White Blood Count 17.23 K/uL Red Blood Count 4.21 M/uL Hemoglobin 12.4 g/dL Hematocrit 38.4 % Mean Corpuscular Volume 91.2 fL Mean Corpuscular Hemoglobin 29.5 pg Mean Corpuscular Hemoglobin Concent 32.3 g/dl Platelet Count 285 K/uL Mean Platelet Volume 9.5 fL Neutrophils (%) (Auto) 86.8 % Lymphocytes (%) (Auto) 7.8 % Monocytes (%) (Auto) 5.0 % Eosinophils (%) (Auto) 0.1 % Basophils (%) (Auto) 0.1 % Neutrophils # (Auto) 14.96 K/uL Lymphocytes # (Auto) 1.34 K/uL Monocytes # (Auto) 0.86 K/uL Eosinophils # (Auto) 0.01 K/uL Basophils # (Auto) 0.02 K/uL RDW Standard Deviation 54.9 fL RDW Coefficient of Variation 16.5 % Immature Granulocyte % (Auto) 0.2 % Immature Granulocyte # (Auto) 0.04 K/uL Prothrombin Time 11.3 SECONDS Prothromb Time International Ratio 1.1 Sodium Level 145 mmol/L Potassium Level 3.7 mmol/L Chloride Level 110 mmol/L Carbon Dioxide Level 25 mmol/L Anion Gap 10.0 mmol/L Blood Urea Nitrogen 5 mg/dl Creatinine 0.62 mg/dl Est Creatinine Clear Calc Drug Dose 95.8 ml/min Estimated GFR () 130.7 Estimated GFR (Non- 112.8 BUN/Creatinine Ratio 7.4 Random Glucose 107 mg/dl Calcium Level 7.6 mg/dl Magnesium Level 2.0 mg/dl Creatine Kinase MB Ratio
--- NOTE | 2016-06-13 11:12 | Family Medicine Progress Note ---
Progress Note Date of Service Jun 13, 2016. Subjective Pt evaluation today including: conversation w/ patient, physical exam, chart review, lab review, review of studies Pain: reports thorat pain post-extubation PO Intake: NPO except ice chips and sips Voiding: layne catheter in place Pt was extubated at 8:45 AM . patient still seemed drowsy from sedation but was able to communicate. She denied SOB,cough, reported throat pain following tube removal. Constitutional: + fatigue, + weakness, No chills, No fever ENT: + sore throat (after extubation) Respiratory: No cough, No shortness of breath, No sputum Cardiovascular: No chest pain, No edema, No palpitations Abdomen: No diarrhea, No nausea, No pain, No vomiting Endo: No fatigue Skin: No itch, No rash Medications Current Inpatient Medications Medications (Trade) Dose Ordered Sig/Oscar Route Start Time Stop Time Status Last Admin Dose Admin Clindamycin Phosphate/Dextrose (Cleocin Iv/ Dextrose Add-Grants 100ML) 106 ml @ 100 mls/hr Q8@0600,1400,2200 IV 06/12/16 22:00 06/19/16 21:59 06/13/16 05:13 100 MLS/HR Acetaminophen (Tylenol Tab) 650 mg Q4H PRN PO 06/12/16 17:45 07/12/16 17:44 Ondansetron HCl 4 mg 4 mg Q6H PRN IV 06/12/16 17:45 07/12/16 17:44 Aztreonam/Dextrose (Azactam IV/D5 100ml) 110 ml @ 100 mls/hr Q8@0400,1200,2000 IV 06/12/16 21:15 06/19/16 21:14 06/13/16 03:58 100 MLS/HR Vancomycin HCl (Consult) 1 ea UD PRN N/A 06/12/16 21:30 07/12/16 21:29 Ipratropium [place] (Atrovent 0.02% 0.5MG/2.5ML Neb) 0.5 mg Q2H PRN INH 06/12/16 21:30 07/12/16 21:29 06/12/16 23:49 0.5 MG Levalbuterol 1.25 mg 1.25 mg Q2H PRN INH 06/12/16 21:30 07/12/16 21:29 06/12/16 23:49 1.25 MG Vancomycin HCl 800 mg/Sodium Chloride 266 ml @ 125 mls/hr Q10H IV 06/13/16 08:00 06/20/16 07:59 06/13/16 08:32 125 MLS/HR Parenteral Electrolyte Solution (Normosol R) 1,000 ml @ 100 mls/hr Q10H IV 06/13/16 03:30 07/13/16 03:29 06/13/16 03:42 100 MLS/HR Enoxaparin Sodium 30 mg 30 mg QAM SQ 06/13/16 09:00 07/13/16 08:59 06/13/16 08:32 30 MG Pantoprazole Sodium 40 mg/ Syringe 10 ml @ 5 mls/min DAILY@11 IV 06/13/16 11:00 07/13/16 10:59 Acetaminophen/ Empty Bag (Ofirmev IV/ Empty Iv Bag 100ml) 65 ml @ 260 mls/hr Q6H PRN IV 06/13/16 05:15 07/13/16 05:14 06/13/16 08:31 260 MLS/HR Propofol (Diprivan Iv Emulsion 100ml Vial) 1 dose UD IV 06/13/16 05:45 06/16/16 05:44 06/13/16 05:36 1 DOSE Ipratropium [place] (Atrovent 0.02% 0.5MG/2.5ML Neb) 0.5 mg Q4R INH 06/13/16 08:00 07/13/16 07:59 Levalbuterol (Xopenex 1.25MG/ 0.5ML Neb) 1.25 mg Q4R INH 06/13/16 08:00 07/13/16 07:59 Objective Vital Signs Date Time Temp Pulse Resp B/P Pulse Ox O2 Delivery O2 Flow Rate FiO2 06/13/16 10:00 37.2 74 16 103/57 96 Mask 12.0 06/13/16 08:30 40 06/13/16 08:00 60 06/13/16 08:00 40 06/13/16 08:00 38.4 86 20 94/56 97 Mechanical Ventilator 60 06/13/16 08:00 97 Mechanical Ventilator 60 06/13/16 07:55 86 97 06/13/16 05:25 60 17 05:09 108 110/59 100 17 05:04 60 17 05:03 100 104/62 100 17 04:58 100 102/58 100 06/13/17 04:53 100 105/62 100 17 04:48 101 109/62 100 17 04:45 100 100 17 04:43 101 115/65 100 17 04:38 102 117/65 100 17 04:33 111 140/79 100 17 04:28 100 112/73 88 17 04:23 100 112/68 17 04:18 112 122/85 17 04:13 222 105/64 96 17 04:08 100 110/72 82 17 04:03 97 100/67 100 17 04:00 Mechanical Ventilator 60 06/13/16 04:00 60 06/13/16 03:58 98 123/70 100 17 03:53 95 97/61 100 17 03:48 93 95/62 100 06/13/17 03:45 94 100 06/13/17 03:43 94 94/58 100 17 03:38 93 93/58 100 17 03:33 94 92/58 100 17 03:28 93 95/58 100 17 03:23 94 93/58 100 17 03:18 96 99/60 100 17 03:15 60 17 03:13 105 124/74 17 03:12 109 111/84 17 03:08 96 90/59 100 17 03:03 92 96/56 100 17 02:58 92 109/61 100 17 02:57 16 92 Mechanical Ventilator 60 17 02:53 97 109/70 100 17 02:48 100 116/82 100 06/13/17 02:45 90 113/64 98 06/13/17 02:33 93 118/73 89 17 02:28 90 104/66 91 2/17/17 02:23 83 88/53 98 06/13/16 02:20 85 93/57 100 06/13/16 02:18 88 103/66 96 06/13/16 02:18 88 103/66 96 06/13/16 02:13 83 93/55 100 06/13/16 02:08 83 97/61 100 06/13/16 02:03 81 115/81 06/13/16 02:00 94 87 06/13/16 01:58 99 143/86 85 06/13/16 01:53 86 91/58 89 06/13/16 01:48 98 129/89 91 06/13/16 01:44 88 97/70 73 06/13/16 01:43 88 100/72 78 06/13/16 01:38 96 113/76 83 06/13/16 01:33 92 102/61 84 06/13/16 01:30 100 06/13/16 01:28 95 153/103 80 06/13/16 01:23 113 116/79 87 06/13/16 01:18 106 113/70 92 06/13/16 01:13 118 118/75 82 06/13/16 01:08 115 119/77 79 06/13/16 01:06 117 120/77 79 06/13/16 01:04 122 120/77 78 06/13/16 00:10 37.2 98 20 135/71 06/13/16 00:00 36.9 06/12/16 23:59 BiPAP 100 06/12/16 23:54 98 22 116/78 93 BiPAP 100 06/12/16 23:50 89 100 06/12/16 23:49 101 20 89 BiPAP/CPAP 100 06/12/16 23:43 88 100 06/12/16 20:05 71 99 100 06/12/16 20:03 71 20 99 BiPAP/CPAP 100 06/12/16 20:00 BiPAP 06/12/16 20:00 36.5 65 20 120/78 99 BiPAP 06/12/16 18:45 36.7 77 18 112/76 99 BiPAP 100 77 06/12/16 17:46 85 91 100 06/12/16 17:45 85 17 91 BiPAP/CPAP 100 06/12/16 17:41 81 135/89 95 BiPAP 06/12/16 17:15 81 16 126/76 87 Non-Rebreather 15 06/12/16 16:50 79 16 113/78 89 Non-Rebreather 15 06/12/16 16:30 89 16 106/61 86 Mask 15 06/12/16 16:15 102 16 111/60 84 Mask 15 06/12/16 15:36 36.4 90 16 121/79 97 Room Air Physical Exam General Appearance: WD/WN, no apparent distress ( ) Eyes: normal inspection, PERRL, EOMI ENT: + pertinent finding (poor dentition) Neck: supple, no adenopathy, trachea midline Respiratory/Chest: lungs clear, normal breath sounds Cardiovascular: regular rate, rhythm, no edema, no murmur Abdomen: normal bowel sounds, non tender, soft Extremities: normal range of motion Skin: normal color, warm/dry, no rash Laboratory Results Results Past 24 Hours Test 06/12/16 17:31 06/12/16 17:35 06/12/16 17:40 06/12/16 23:00 Range/Units Blood Gas Sample Site R Radial R Radial Bedside Blood Gas pH (LAB) 7.27 7.33 7.35-7.45 Bedside Blood Gas pCO2 (LAB) 60 49 35-46 mmHg Bedside Blood Gas pO2 (LAB) < 32 46 80-95 mmHg Bedside Blood Gas HCO3 (LAB) 28 25 19-24 meq/L Bedside Blood Gas Total CO2 30 27 24-31 mEq/l Bedside Blood Gas Base Excess (LAB) 1.0 -1.0 -9-1.8 meq/L Bedside Blood Gas O2 Saturation 50.0 78.0 90-95 % Salbador Test Pass Pass Oxygen Delivery Device NonRb Mask NonRb Mask Bedside FiO2 100 100 % White Blood Count 10.41 4.8-10.8 K/uL Red Blood Count 4.74 4.2-5.4 M/uL Hemoglobin 13.7 12.0-16.0 g/dL Hematocrit 41.6 37-47 % Mean Corpuscular Volume 87.8 80-100 fL Mean Corpuscular Hemoglobin 28.9 25-34 pg Mean Corpuscular Hemoglobin Concent 32.9 32-36 g/dl Platelet Count 303 130-400 K/uL Mean Platelet Volume 8.9 7.4-10.4 fL Neutrophils (%) (Auto) 66.6 % Lymphocytes (%) (Auto) 24.9 % Monocytes (%) (Auto) 4.9 % Eosinophils (%) (Auto) 3.0 % Basophils (%) (Auto) 0.2 % Neutrophils # (Auto) 6.94 1.4-6.5 K/uL Lymphocytes # (Auto) 2.59 1.2-3.4 K/uL Monocytes # (Auto) 0.51 0.11-0.59 K/uL Eosinophils # (Auto) 0.31 0-0.5 K/uL Basophils # (Auto) 0.02 0-0.2 K/uL RDW Standard Deviation 53.0 36.4-46.3 fL RDW Coefficient of Variation 16.4 11.5-14.5 % Immature Granulocyte % (Auto) 0.4 % Immature Granulocyte # (Auto) 0.04 0.00-0.02 K/uL Sodium Level 144 136-145 mmol/L Potassium Level 4.1 3.5-5.1 mmol/L Chloride Level 109 98-107 mmol/L Carbon Dioxide Level 26 21-32 mmol/L Anion Gap 9.0 3-11 mmol/L Blood Urea Nitrogen 4 7-18 mg/dl Creatinine 0.42 0.60-1.20 mg/dl Est Creatinine Clear Calc Drug Dose 129.3 ml/min Estimated GFR () 148.6 Estimated GFR (Non- 128.2 BUN/Creatinine Ratio 8.6 10-20 Random Glucose 95 70-99 mg/dl Calcium Level 9.3 8.5-10.1 mg/dl Magnesium Level 2.3 1.8-2.4 mg/dl Total Bilirubin 0.3 0.2-1 mg/dl Aspartate Amino Transf (AST/SGOT) 17 15-37 U/L Alanine Aminotransferase (ALT/SGPT) 32 12-78 U/L Alkaline Phosphatase 253 45-117 U/L Total Creatine Kinase 118 26-192 U/L Creatine Kinase MB 2.5 0.5-3.6 ng/ml Creatine Kinase MB Ratio 2.1 0-3.0 Troponin I < 0.015 0-0.045 ng/ml Total Protein 7.5 6.4-8.2 gm/dl Albumin 3.4 3.4-5.0 gm/dl Globulin 4.1 2.5-4.0 gm/dl Albumin/Globulin Ratio 0.8 0.9-2 Urine Opiates Screen NEG NEG Urine Methadone, Qualitative NEG NEG Urine Barbiturates NEG NEG Urine Phencyclidine (PCP) Level NEG NEG Ur Amphetamine/Methamphetamine NEG NEG MDMA (Ecstasy) Screen NEG NEG Urine Benzodiazepines Screen POS NEG Urine Cocaine Metabolite NEG NEG Urine Marijuana (THC) POS NEG Test 06/13/16 00:00 06/13/16 00:20 06/13/16 00:26 06/13/16 01:46 Range/Units Influenza Type A (RT-PCR) Neg for Influ A NEG Influenza Type B (RT-PCR) Neg for Influ B NEG White Blood Count 22.35 4.8-10.8 K/uL Red Blood Count 4.65 4.2-5.4 M/uL Hemoglobin 13.8 12.0-16.0 g/dL Hematocrit 41.7 37-47 % Mean Corpuscular Volume 89.7 80-100 fL Mean Corpuscular Hemoglobin 29.7 25-34 pg Mean Corpuscular Hemoglobin Concent 33.1 32-36 g/dl Platelet Count 352 130-400 K/uL Mean Platelet Volume 9.2 7.4-10.4 fL Neutrophils (%) (Auto) 83.8 % Lymphocytes (%) (Auto) 11.0 % Monocytes (%) (Auto) 4.0 % Eosinophils (%) (Auto) 0.6 % Basophils (%) (Auto) 0.1 % Neutrophils # (Auto) 18.73 1.4-6.5 K/uL Lymphocytes # (Auto) 2.45 1.2-3.4 K/uL Monocytes # (Auto) 0.90 0.11-0.59 K/uL Eosinophils # (Auto) 0.14 0-0.5 K/uL Basophils # (Auto) 0.02 0-0.2 K/uL RDW Standard Deviation 53.9 36.4-46.3 fL RDW Coefficient of Variation 16.4 11.5-14.5 % Immature Granulocyte % (Auto) 0.5 % Immature Granulocyte # (Auto) 0.11 0.00-0.02 K/uL Sodium Level 145 136-145 mmol/L Potassium Level 4.0 3.5-5.1 mmol/L Chloride Level 109 98-107 mmol/L Carbon Dioxide Level 25 21-32 mmol/L Anion Gap 11.0 3-11 mmol/L Blood Urea Nitrogen 5 7-18 mg/dl Creatinine 0.48 0.60-1.20 mg/dl Est Creatinine Clear Calc Drug Dose 123.7 ml/min Estimated GFR () 142.2 Estimated GFR (Non- 122.7 BUN/Creatinine Ratio 9.4 10-20 Random Glucose 152 70-99 mg/dl Lactic Acid Level 1.3 0.4-2.0 mmol/L Calcium Level 9.0 8.5-10.1 mg/dl Total Creatine Kinase 111 26-192 U/L Creatine Kinase MB 2.5 0.5-3.6 ng/ml Creatine Kinase MB Ratio 2.3 0-3.0 Troponin I < 0.015 0-0.045 ng/ml Blood Gas Sample Site R Radial R Radial Bedside Blood Gas pH (LAB) 7.39 7.30 7.35-7.45 Bedside Blood Gas pCO2 (LAB) 36 52 35-46 mmHg Bedside Blood Gas pO2 (LAB) 81 55 80-95 mmHg Bedside Blood Gas HCO3 (LAB) 22 25 19-24 meq/L Bedside Blood Gas Total CO2 23 27 24-31 mEq/l Bedside Blood Gas Base Excess (LAB) -3.0 -1.0 -9-1.8 meq/L Bedside Blood Gas O2 Saturation 96.0 83.0 90-95 % Salbador Test Pass Pass Oxygen Delivery Device BIPAP Ventilator Bedside FiO2 100 100 % Blood Gas IPAP 16 Bedside Oxygen Rate (breaths/min) 16 Blood Gas Minute Ventilation 5.8 Blood Gas Tidal Volume 400 Blood Gas PEEP 10 Test 06/13/16 03:15 06/13/16 05:19 06/13/16 05:55 06/13/16 09:16 Range/Units Blood Gas Sample Site R Radial R Radial Bedside Blood Gas pH (LAB) 7.15 7.21 7.35-7.45 Bedside Blood Gas pCO2 (LAB) 69 61 35-46 mmHg Bedside Blood Gas pO2 (LAB) 127 160 80-95 mmHg Bedside Blood Gas HCO3 (LAB) 25 24 19-24 meq/L Bedside Blood Gas Total CO2 27 26 24-31 mEq/l Bedside Blood Gas Base Excess (LAB) -5.0 -4.0 -9-1.8 meq/L Bedside Blood Gas O2 Saturation 98.0 99.0 90-95 % Salbador Test Pass Pass Oxygen Delivery Device Ventilator Ventilator Bedside Oxygen Rate (breaths/min) 16 22 Blood Gas Minute Ventilation 7.3 Bedside FiO2 60 60 % Blood Gas Tidal Volume 400 400 Blood Gas PEEP 15 15 White Blood Count 17.23 4.8-10.8 K/uL Red Blood Count 4.21 4.2-5.4 M/uL Hemoglobin 12.4 12.0-16.0 g/dL Hematocrit 38.4 37-47 % Mean Corpuscular Volume 91.2 80-100 fL Mean Corpuscular Hemoglobin 29.5 25-34 pg Mean Corpuscular Hemoglobin Concent 32.3 32-36 g/dl Platelet Count 285 130-400 K/uL Mean Platelet Volume 9.5 7.4-10.4 fL Neutrophils (%) (Auto) 86.8 % Lymphocytes (%) (Auto) 7.8 % Monocytes (%) (Auto) 5.0 % Eosinophils (%) (Auto) 0.1 % Basophils (%) (Auto) 0.1 % Neutrophils # (Auto) 14.96 1.4-6.5 K/uL Lymphocytes # (Auto) 1.34 1.2-3.4 K/uL Monocytes # (Auto) 0.86 0.11-0.59 K/uL Eosinophils # (Auto) 0.01 0-0.5 K/uL Basophils # (Auto) 0.02 0-0.2 K/uL RDW Standard Deviation 54.9 36.4-46.3 fL RDW Coefficient of Variation 16.5 11.5-14.5 % Immature Granulocyte % (Auto) 0.2 % Immature Granulocyte # (Auto) 0.04 0.00-0.02 K/uL Prothrombin Time 11.3 9.0-12.0 SECONDS Prothromb Time International Ratio 1.1 0.9-1.1 Sodium Level 145 136-145 mmol/L Potassium Level 3.7 3.5-5.1 mmol/L Chloride Level 110 98-107 mmol/L Carbon Dioxide Level 25 21-32 mmol/L Anion Gap 10.0 3-11 mmol/L Blood Urea Nitrogen 5 7-18 mg/dl Creatinine 0.62 0.60-1.20 mg/dl Est Creatinine Clear Calc Drug Dose 95.8 ml/min Estimated GFR () 130.7 Estimated GFR (Non- 112.8 BUN/Creatinine Ratio 7.4 10-20 Random Glucose 107 70-99 mg/dl Calcium Level 7.6 8.5-10.1 mg/dl Magnesium Level 2.0 1.8-2.4 mg/dl Creatine Kinase MB Ratio 0-3.0 Test 06/13/16 10:15 Range/Units Microbiology Results 06/13/16 MRSA DNA Surveillance Screen - Final, Complete Specimen Negative for MRSA by DNA Probe 06/13/16 Fungal Smear - Final, Resulted 06/13/16 Fungal Culture, Resulted Pending 06/13/16 Acid Fast Stain, Received Pending 06/13/16 Mycobacterial Culture, Received Pending 06/13/16 Gram Stain - Final, Resulted 06/13/16 Bronchoalveolar Lavage Culture, Resulted Pending Assessment and Plan Acute Hypoxic Respiratory Failure -extubated at 8:45, put on 12 L O2 mask, clinically improving -post-operative respiratory failure, alveolar collapse likely secondary to mucus plug obstruction bronchi vs, aspiration vs Pneumonia -Continue Clindamycin, Vancomycin, Aztreonam -DuoNebs Pneumonia -Aspiration more liekly given rapid onset -CXR Patch airspace consolidation , Trace plerual effusions -CT Chest: occlusion of L lower lobe bronchus, L lower lobe collapse, complete atelectasis of L Lower lobe, Rt lung clear Elevated White ct 17.23, F/u repeat CBC - Continue broad spectrum abx as indicated above - F/u Bronchial washing cx's, blood cx's LBBB - Troponins neg. ACS unlikely - Monitor in Tele Hx of Duodenal Ulcer - Continue Protonix Disposition: -Transfer to Telemetry Resident Physician Supervision Note: I was present with PGY1 Dr. Jerry Hanson during the history and exam. I discussed the case with the resident and agree with the findings and plan as documented in the note. Any exceptions or clarifications are listed here: none. Pt successfully extubated this am. Then, several hours later, she developed hypoxia again, requiring repeat imaging of the chest showing collapse of the LLL again along with fluid in her esophagus and fluid in the LLL bronchus. Pt reports chronic AM cough at home. Denies h/o cystic fibrosis. Reports nearly 15 pounds of weight loss in the last year due to 'difficulty swallowing' . Denies chronic diarrhea or abdominal pain. VSS, O2 sats acceptable gen - chronically ill appearing mouth - poor dentition neck - no JVD heart - tachy s1, s2 lungs - bibasilar rales, no increased WOB abd - soft, NT, BS+ ext - no edema labs - leukocytosis alk phos elevated creatinine normal A/P: 1. acute hypoxic resp failure 2nd to aspiration + mucous plugging s/p intubation, bronch with lavage, etc overall improved 2. aspiration event with mucous plugging - aggressive pulmonary toilet (chest PT, bronchodilators, flutter valve and/or incentive rachelle, etc) remains on abx (zithromax) 3. tobacco depend - nicoderm patch 14mg 4. elevated alk phos - check vit D level, check TSH, repeat alk phos in 1-2 days; check phos level as well Documented By: Jassi Suarez MD Continued [facility] stay due to: abnormal vital signs, multiple IV medications needed Discharge planning: uncertain Resident Tracking Resident Involvement: Resident Care Provided Care Provided: Adult Hospital Medicine
[2016-06-13] MEDS ORDERED: OPTIRAY 320 IV PRN (11:15)
[2016-06-13 11:18] LABS: CKMB/CK RATIO 1.5 (0-3.0)
[2016-06-13] MEDS: PANTOprazole INJ 40 MG in SYRINGE 0 ML IV SCH (11:31)
[2016-06-13] MEDS ORDERED: LACTATED RINGER'S 1000ML 1,000 ML IV ONE (12:15)
--- NOTE | 2016-06-13 13:30 | DIAGNOSTIC IMAGING REPORT ---
CT ANGIOGRAM OF THE CHEST CLINICAL HISTORY: Dyspnea. COMPARISON STUDY: Chest CT dated 06/13/2016. Chest x-ray dated 06/13/2016. TECHNIQUE: Following the IV administration of 95 cc of Optiray 320, CT angiogram of the chest was performed from the upper abdomen to the thoracic inlet utilizing the pulmonary embolus protocol. Images are reviewed in the axial, sagittal, and coronal planes. 3-D MIPS images are created and assessed. IV contrast was administered without complication. CT DOSE: 264.06 mGycm FINDINGS: Thyroid: Imaged portions of the thyroid gland are normal in size and attenuation. Thoracic aorta: The thoracic aorta is normal in caliber and demonstrates standard 3-vessel arch anatomy. No dissection is seen. Pulmonary vasculature: The pulmonary trunk is normal in caliber. There are no filling defects identified in main, lobar, or segmental pulmonary branches to suggest pulmonary embolus. Heart: The heart is normal in size and configuration, and without pericardial effusion. Lungs and pleural spaces: The endotracheal tube has been removed. Evaluation of the lung parenchyma is significantly degraded by respiratory motion artifact. There are small pleural effusions with dense bibasilar airspace consolidation. Patchy airspace consolidation is again seen throughout the remainder of the left lung. The trachea is clear. Fluid/debris remains within the left lower lobe airway which appears partially occluded. Mediastinum: There is no mediastinal lymphadenopathy. Elizabeth: Clear. Axillae: There is no axillary lymphadenopathy. Upper abdomen: The esophagus is filled with fluid to the level of the thoracic inlet. Partially visualized upper abdominal viscera is within normal limits. Skeletal structures: No lytic or blastic bony lesions are seen. IMPRESSION: 1. There is no evidence of pulmonary embolus in the main, lobar, or segmental pulmonary arteries. 2. Endotracheal and enteric tubes have been removed. 3. The esophagus is filled with fluid to the level of the thoracic inlet. Note that this may place the patient at risk for aspiration. 4. There is a left pleural effusion with dense left basilar airspace atelectasis/consolidation. Aeration of the left lower lobe is improved from today's earlier CT scan.. Patchy airspace consolidation is again seen throughout the remainder of the left lung. 5. There is dense basilar consolidation at the right lung base with a small right pleural effusion. This is new from earlier today. 6. There is material again seen within the left lower lobe bronchus which remains at least partially occluded Electronically signed by: Titi Guidry M.D. 06/13/2016 1:29 PM Dictated Date/Time: 06/13/2016 1:23 PM
[2016-06-13] MEDS ORDERED: METOCLOPRAMIDE HCL INJ 5 MG/ML 2 ML VIAL IV STA (14:37)
[2016-06-13] MEDS ORDERED: AZITHROMYCIN IV 500 MG in DEXTROSE 5% 250ML 250 ML IV ONE (14:45)
[2016-06-14] VITALS (11 sets, daily range): BP systolic 99–121; BP diastolic 55–74; PULSE 82–105; TEMP 36.5–37.1; O2SAT 90–97
[2016-06-14] MEDS: LEVALBUTEROL 1.25MG/0.5ML NEB INH SCH ×7 (00:52→23:00)
[2016-06-14] MEDS: IPRATROPIUM BROMIDE NEB SOLN 0.02% 2.5 ML VIAL INH SCH ×7 (00:52→23:00)
[2016-06-14] MEDS ORDERED: VANCOMYCIN TROUGH ONE (03:30)
[2016-06-14 05:29] LABS: BASO % 0.1 %; BASO ABS # 0.02 K/uL (0-0.2); COMPLETE YES; EOS % 0.6 %; HEMATOCRIT 30.5 % (37-47); IG% 0.2 %; LYMPH % 10.4 %; LYMPH ABS # 1.44 K/uL (1.2-3.4); MEAN CELL VOLUME 89.2 fL (80-100); MEAN CORPUSCULAR HEMOGLOBIN 29.2 pg (25-34); MEAN CORPUSCULAR HGB CONC 32.8 g/dl (32-36); MEAN PLATELET VOLUME 9.1 fL (7.4-10.4); MONO % 4.3 %; NEUT % 84.4 %; PLATELET COUNT 211 K/uL (130-400); RED BLOOD COUNT 3.42 M/uL (4.2-5.4); WHITE BLOOD COUNT 13.88 K/uL (4.8-10.8)
[2016-06-14 06:00] LABS: BLOOD UREA NITROGEN 3 mg/dl (7-18); BUN/CREATININE RATIO 11.4 (10-20); CARBON DIOXIDE 28 mmol/L (21-32); CHLORIDE 110 mmol/L (98-107); GLUCOSE 96 mg/dl (70-99); MAGNESIUM 2.2 mg/dl (1.8-2.4); POTASSIUM 3.5 mmol/L (3.5-5.1); SODIUM 145 mmol/L (136-145)
[2016-06-14 06:16] LABS: PHOSPHORUS 1.4 mg/dl (2.5-4.9); THYROID STIMULATING HORMONE 0.378 uIu/ml (0.300-4.500)
[2016-06-14] MEDS: AZITHROMYCIN 250 MG TAB PO SCH (09:00)
[2016-06-14] MEDS: NICOTINE 14 MG/24 HR TDSY TD SCH (09:00)
[2016-06-14] MEDS: ENOXAPARIN 30 MG/0.3 ML SYR SQ SCH (09:00)
[2016-06-14] MEDS: NORMOSOL R 1,000 ML IV SCH ×2 (09:02→19:48)
[2016-06-14] MEDS: PANTOprazole INJ 40 MG in SYRINGE 0 ML IV SCH (11:00)
[2016-06-14] MEDS ORDERED: POTASSIUM PHOS 3 MMOL/1 ML INFUSION IV STA (11:14)
[2016-06-14] MEDS ORDERED: PANTOprazole SOD 40 MG TAB PO ONE (11:30)
[2016-06-14] MEDS ORDERED: POTASSIUM PHOSPHATE INJ 30 MMOL in SODIUM CHLORIDE 0.9% 500ML 500 ML IV SCH (11:30)
[2016-06-14] MEDS: ERGOCALCIFEROL 50,000 INTER.UNIT CAP PO SCH (11:33)
--- NOTE | 2016-06-14 17:36 | Family Medicine Progress Note ---
Progress Note Date of Service Jun 14, 2016. Subjective Pt evaluation today including: conversation w/ patient, physical exam, chart review, lab review The patient was seen and examined at bedside. No acute overnight events. Patient has been NPO since her scope. She says she is hungry. Pt expressed interest in going home because she has two children that she has to take care of. Patient was wondering how to use the phone - that was explained to her. Pt also wanted one of the doctors to talk to her. Patient is resting comfortably in bed. Has no complaints. Pt does not remember the events that led her to being in the ICU but she believes what she was told about the hypoxia. Plan of care was described to the patient and all questions were answered. ROS: Pt denies chest pain, denies SOB, is hungry, denies Fevers. Objective Physical Exam General Appearance: WD/WN, no apparent distress, + thin Eyes: normal inspection ENT: normal ENT inspection Neck: supple Respiratory/Chest: chest non-tender, lungs clear, normal breath sounds, no respiratory distress Cardiovascular: regular rate, rhythm, no edema, no gallop, no JVD, no murmur Abdomen: normal bowel sounds, non tender, soft Extremities: normal range of motion, non-tender, normal inspection, no pedal edema Assessment and Plan 40F that was admitted to the ICU after an episode of Hypoxia after an upper EGD by Dr. Alejandro. Patient was intubated due to low oxygen saturation. Pt is extubated, awake, alert and oriented. Pt is in the ICU as a Telemetry patient due to no beds being available on Tele. Acute Hypoxic Respiratory Failure -Doing well clinically. 95% Oxygen saturation on 2LNC. -Post-operative respiratory failure, likely secondary to mucus plug obstruction bronchi vs aspiration vs Pneumonia. -c/w aggressive pulmonary toilet (chest PT, bronchodilators, flutter valve and/ or incentive rachelle, etc) -c/w Azithromycin 250mg QAM. - Wean O2 as tolerated. Pneumonia -Likely acute episode of Aspiration post EGD. WBCs improving. -CXR Patch airspace consolidation , Trace plerual effusions -CT Chest: occlusion of L lower lobe bronchus, L lower lobe collapse, complete atelectasis of L Lower lobe, Rt lung clear - F/u Bronchial washing cx's, blood cx's LBBB - Troponins neg. ACS unlikely - Monitor in Tele Low Vit D and Low Phosphate - Vit D supplement 50,000 IU twice weekly. - KPhos 30mmol today. Hx of Duodenal Ulcer - Change Protonix IV to PO. Tobacco Use - c/w nicoderm patch 14mg DVT Proph: Lovenox 30mg Inj QAM. Dispo: Tele, Full Code, Dental Soft Diet. Resident Physician Supervision Note: I was present with PGY1 Dr. Aquilino Armstorng during the history and exam. I discussed the case with the resident and agree with the findings and plan as documented in the note. Any exceptions or clarifications are listed here: none. Pt feels much better today. Denies dyspnea. Still with cough and sputum. Continues w/ reflux symptoms. VSS, O2 sats acceptable on minimal amt of O2 gen - appears thin and chronically ill but NAD mouth - MMM, poor dentition heart - RRR lungs - mild rales left base with decreased BS left base; no wheeze abd - soft, NT labs - phos <1.5 TSH nl CBC with leukocytosis A/P: 1. acute hypoxic resp failure - suspect aspiration event. 2. LLL lung collapse - improved clinically. 3. chronic, severe GERD. 4. hypophosphatemia. 5. vitamin D deficiency. 6. elevated alk phos - likely 2nd to #5. replace phos replace vit D wean O2 change diet to dental soft PT consult cont zithromax PPI pulmonary toilet for #2 d/c on Thursday if o2 weaned off and PT clears for home?? Documented By: Jassi Suarez MD Resident Involvement: Resident Care Provided Care Provided: Adult Hospital Medicine
[2016-06-15] VITALS (15 sets, daily range): BP systolic 110–127; BP diastolic 72–80; PULSE 83–108; TEMP 36.4–36.8; O2SAT 90–99
[2016-06-15] MEDS: IPRATROPIUM BROMIDE NEB SOLN 0.02% 2.5 ML VIAL INH SCH ×6 (03:55→23:39)
[2016-06-15] MEDS: LEVALBUTEROL 1.25MG/0.5ML NEB INH SCH ×6 (03:55→23:39)
[2016-06-15] MEDS: NORMOSOL R 1,000 ML IV SCH ×2 (05:42→15:58)
[2016-06-15 05:59] LABS: BASO % 0.2 %; BASO ABS # 0.02 K/uL (0-0.2); COMPLETE YES; EOS % 2.2 %; HEMATOCRIT 30.1 % (37-47); IG% 0.2 %; LYMPH % 18.3 %; LYMPH ABS # 1.62 K/uL (1.2-3.4); MEAN CELL VOLUME 88.5 fL (80-100); MEAN CORPUSCULAR HEMOGLOBIN 28.5 pg (25-34); MEAN CORPUSCULAR HGB CONC 32.2 g/dl (32-36); MEAN PLATELET VOLUME 9.4 fL (7.4-10.4); MONO % 6.2 %; NEUT % 72.9 %; PLATELET COUNT 244 K/uL (130-400); WHITE BLOOD COUNT 8.83 K/uL (4.8-10.8)
[2016-06-15 06:27] LABS: BLOOD UREA NITROGEN 2 mg/dl (7-18); BUN/CREATININE RATIO 4.8 (10-20); CALCIUM 8.2 mg/dl (8.5-10.1); CARBON DIOXIDE 24 mmol/L (21-32); CHLORIDE 110 mmol/L (98-107); CREATININE 0.31 mg/dl (0.60-1.20); GLUCOSE 101 mg/dl (70-99); MAGNESIUM 2.2 mg/dl (1.8-2.4); POTASSIUM 3.5 mmol/L (3.5-5.1); SODIUM 144 mmol/L (136-145)
[2016-06-15 06:40] LABS: PHOSPHORUS 1.1 mg/dl (2.5-4.9)
[2016-06-15] MEDS ORDERED: POTASSIUM PHOS 3 MMOL/1 ML INFUSION IV STA ×2 (07:22→22:46)
[2016-06-15] MEDS ORDERED: POTASSIUM PHOSPHATE INJ 30 MMOL in SODIUM CHLORIDE 0.9% 500ML 500 ML IV SCH (08:00)
[2016-06-15] MEDS: NICOTINE 14 MG/24 HR TDSY TD SCH ×2 (08:14→15:59)
[2016-06-15] MEDS: AZITHROMYCIN 250 MG TAB PO SCH (08:15)
[2016-06-15] MEDS: PANTOprazole SOD 40 MG TAB PO SCH (08:15)
[2016-06-15] MEDS: ENOXAPARIN 30 MG/0.3 ML SYR SQ SCH (08:16)
[2016-06-15] MEDS ORDERED: PRT40 PO (09:47)
[2016-06-15] MEDS ORDERED: ZTHM250 PO (09:47)
[2016-06-15] MEDS ORDERED: VTMD PO (09:47)
--- NOTE | 2016-06-15 09:55 | Discharge Instructions ---
Discharge Instructions Admission Reason for Admission: Doudenal Ulcer Discharge Discharge Diagnosis / Problem: Acute Hypoxic Respiratory Failure 2/2 likely Aspiration Discharge Goals Goal(s): Decrease discomfort, Improve function, Increase independence, Improve nutritional status Activity Recommendations Activity Limitations: resume your previous activity . Instructions / Follow-Up Instructions / Follow-Up Please follow up with your Primary Care Doctor within 7 days of discharge. You will be discharged with the following recommendations: - Eat soft foods and chew your food thoroughly. - Quit smoking immediately. - See a dentist to improve your chewing ability. You have been prescribed 3 medications on your hospital discharge: Vitamin D, Pantoprazole and Azithromycin. Vitamin D - You are given a prescription for a high dose Vitamin D pill of 50, 000 units. You are to take one pill on Thursday and one pill on Thursday for each of the next 6 weeks. After that you should take a daily vitamin D supplement of 2000IU. Pantoprazole - This medication should be taken daily. It is for heartburn. You have been given a prescription for a 30 day supply. You should follow up with your primary care provider within the next 7 days in order to get a prescription for a PPI. Azithromycin - This medication is an antibiotic for your lungs. Please take one pill every morning for the next 5 days. Current Hospital Diet Patient's current hospital diet: Regular Diet Discharge Diet Recommended Diet: Regular Diet Diet Texture: Dental Soft (bite-sized) Procedures Procedures Performed: EGD Pending Studies Studies pending at discharge: no Medical Emergencies . Who to Call and When: Medical Emergencies: If at any time you feel your situation is an emergency, please call 911 immediately. . Non-Emergent Contact Non-Emergency issues call your: Primary Care Provider . . "Provider Documentation" section prepared by Aquilino Armstrong. VTE Core Measure Inpt VTE Proph given/why not?: SCD's Resident Involvement: Resident Care Provided Care Provided: Adult Hospital Medicine
--- NOTE | 2016-06-15 09:59 | Discharge Summary ---
Discharge Summary Admission Date: Jun 12, 2016 at 17:31 Discharge Date: Jun 15, 2016 Discharge Disposition: Home Principal Diagnosis: Acute Hypoxic Respiratory Failure 2/2 Possible Aspiration Medication Reconciliation New Medications: Azithromycin (Azithromycin) 250 Mg Tab 250 MG PO QAM for 5 Days, #5 TAB Ergocalciferol (Vitamin D) 50,000 Interunit Cap 60589 INTERUNIT PO WeSa@0900 for 12 Days, #12 CAP Take one pill on Thursday and take one pill on Thursday for the next 6 weeks. Pantoprazole (Pantoprazole Sodium) 40 Mg Tab 40 MG PO QAM for 30 Days, #30 TAB Discharge Exam The patient was seen and examined at bedside. No acute overnight events. Patient feels well. Wants to go home. Has a headache after he breathing treatment. According to nursing note she is unable to lie flat without getting dyspneic. Patient is resting comfortably in bed. Denies having any pain. Eating (Dental Soft Diet) and urinating well. Plan of care was described to the patient and all questions were answered. Review of Systems: Constitutional: No chills, No fever Respiratory: No cough, No dyspnea on exertion, No shortness of breath, No sputum Cardiovascular: No chest pain, No edema Psychiatric: No depression symptoms Physical Exam: General Appearance: WD/WN, no apparent distress Neck: supple, no adenopathy Respiratory/Chest: chest non-tender, lungs clear, no respiratory distress, + pertinent finding (Decreased breath sounds in the left lower lobe. ) Cardiovascular: no edema, no gallop, no JVD, no murmur, + tachycardia Abdomen / GI: normal bowel sounds, non tender, soft, no organomegaly Extremities: normal inspection, no pedal edema Neurologic/Psychiatric: normal mood/affect, normal reflexes, oriented x 3 Hospital Course Total Time Spent: Greater than 30 minutes This includes examination of the patient, discharge planning, medication reconciliation, and communication with other providers. Discharge Instructions Please refer to the electronic Patient Visit Report (Discharge Instructions) for additional information. Resident Involvement: Resident Care Provided Care Provided: Adult Hospital Medicine
[2016-06-15] MEDS ORDERED: IBUPROFEN 600 MG TAB PO ONE (10:30)
[2016-06-15] MEDS: PANTOprazole INJ 40 MG in SYRINGE 0 ML IV SCH (10:33)
--- NOTE | 2016-06-15 14:05 | Family Medicine Progress Note ---
Progress Note Date of Service Jun 15, 2016. Subjective Pt evaluation today including: conversation w/ patient, physical exam, chart review, lab review The patient was seen and examined at bedside. No acute overnight events. Patient wants to go home. Has a headache after her breathing treatment. According to nursing note overnight she is unable to lie flat without getting dyspneic. Telemetry revealed tachycardia at rest, 130s when she walks around. Patient reportedly wanted to go AMA. Patient changed her mind she presented with the AMA form. Patient reportedly asked nurse if she could go outside for a smoke. Pt is eating (Dental Soft Diet) and urinating well. Plan of care was described to the patient and all questions were answered. Review of Systems: Constitutional: No chills, No fever Respiratory: No cough, No dyspnea on exertion, No shortness of breath, No sputum Cardiovascular: No chest pain, No edema Psychiatric: No depression symptoms Physical Exam Physical Exam: General Appearance: WD/WN, no apparent distress Neck: supple, no adenopathy Respiratory/Chest: chest non-tender, lungs clear, no respiratory distress, + pertinent finding (Decreased breath sounds in the left lower lobe. ) Cardiovascular: no edema, no gallop, no JVD, no murmur, + tachycardia Abdomen / GI: normal bowel sounds, non tender, soft, no organomegaly Extremities: normal inspection, no pedal edema Neurologic/Psychiatric: normal mood/affect, normal reflexes, oriented x 3 Assessment and Plan 40F that was admitted to the ICU after an episode of Hypoxia after an upper EGD by Dr. Alejandro. Patient was intubated due to low oxygen saturation. Pt is extubated, awake, alert and oriented. Patient was downgraded from the ICU over the weekend. Telemetry was significant for tachycardia. LLL continues to have decreased breath sounds. Pt reports dyspnea while laying supine. Pt discussed going AMA on Thursday06/15/16. Pulm consulted for persistent dyspnea and tachycardia. Echo ordered. Acute Hypoxic Respiratory Failure -Doing well clinically. 95% Oxygen saturation on 2LNC. -Post-operative respiratory failure, likely secondary to mucus plug obstruction bronchi vs aspiration vs Pneumonia. -c/w aggressive pulmonary toilet (chest PT, bronchodilators, flutter valve and/ or incentive rachelle, etc) - Wean O2 as tolerated. - Pulmonology consulted (Dr. Fuller, awaiting recommendations). - F/u pulm recs tomorrow. Pneumonia likely due to Aspiration -Likely acute episode of Aspiration post EGD. WBCs improving. Blood cultures were negative. Bronchial washing had normal nolvia. -CXR Patch airspace consolidation , Trace pleural effusions. -CT Chest: occlusion of L lower lobe bronchus, L lower lobe collapse, complete atelectasis of L Lower lobe, Rt lung clear -> according to pt this is a chronic condition. - c/w Azithromycin 250mg QAM. LBBB - Pt denies any coronary history, aside from smoking pt has no other known risk factors. - Troponins neg. ACS unlikely. Patient remains tachycardic. - Ordered an echocardiogram. - F/u echo tomorrow. Low Vit D and Low Phosphate - Vit D supplement 50,000 IU twice weekly. - KPhos 30mmol today, continue to monitor phosphorous daily. - Will need Neutrophos or other phosphate supplement on discharge. Hx of Duodenal Ulcer - c/w Protonix PO, consider Pantoprazole 40mg BID on discharge. (non formulary med) Tobacco Use - I believe this is a big contributor to pt wanting to go AMA, last cigarette 4 days ago, pt has cravings. - c/w nicoderm patch 14mg DVT Proph - Lovenox 30mg SQ QAM. Dispo Tele, Full Code, Dental Soft Diet. Patient is an AMA risk. Patient reportedly asked nurse if she could have a smoke. Was visited by daughter and mom today. --- Resident Physician Supervision Note: I was present with PGY1 Dr. Aquilino Armstrong during the history and exam. I discussed the case with the resident and agree with the findings and plan as documented in the note. Any exceptions or clarifications are listed here: none. Pt reported multiple times today to myself and Dr. Armstrong that she wished to leave. She was familiar with the AMA process. She has complained to staff that she can't lie flat in the bed because of her reflux. She continues with cough. Denies dyspnea. Eating w/o difficulty. VSS, O2 sats but low-normal (about 90-92% with walking) HR goes into the 130-140 range with minimal walking gen - appears thin and chronically ill but NAD mouth - MMM, poor dentition, no thrush heart - RRR lungs - decreased BS left base, slightly decreased right base, no rales or wheeze, no increased work of breathing abd - soft, NT labs - phos 1.1 hb 9.7 creatinine normal tele - 90s-130s - sinus tach A/P: 1. acute hypoxic resp failure - suspect aspiration event in the setting of EGD with subsequent LLL lung collapse. 2. LLL lung collapse - improved clinically but O2 sats still low-normal suggesting ongoing issue. 3. chronic, severe GERD. 4. hypophosphatemia. severe. 5. vitamin D deficiency. mod-severe. 6. elevated alk phos - likely 2nd to #5. 7. sinus tachycardia with minimal activity 8. LBBB replace phos once again; repeat level later today replace vit D increase PPI to twice daily due to refractory symptoms cont zithromax for total 5 days pulmonary toilet for #2 echo due to LBBB, tachycardia with minimal activity, etc pulmonary consultation due to ongoing LLL lung collapse; bronchiectasis ?? consider cardiology consultation patient threatened to leave AMA during our bedside rounds we discussed our concerns with her including the LBBB, her sinus tach with minimal activity, the ongoing LLL lung collapse, her refractory GERD, etc at the last moment she changed her mind and was willing to stay hospitalized will continue work-up as noted above time 45 minutes Documented By: Jassi Suarez MD Resident Involvement: Resident Care Provided Care Provided: Adult Hospital Medicine
--- NOTE | 2016-06-15 17:29 | Pulmonary Consultation ---
History General Date of Service: Jun 15, 2016. Stated Complaint: Continue his hypoxemia HPI The patient is a 40 year old female who presents to [facility] with complaints of Doudenal Ulcer. The patient's primary care provider is Loyd Alicea M.D.. 40-year-old female admitted 06/13/2015 secondary to respiratory insufficiency/ hypoxemia following an EGD performed for evaluation of possible duodenal ulcer. The patient was noted to become quantitatively hypoxic SaO2: but no subjective notation of dyspnea. Her SaO2 where notable in the upper 70s rising to 86-87% on a NRB. She was finally placed on BiPAP and 100% FiO2. She was eventually required intubated and bronchoscopy/BAL. Bronchoscopy noted tenacious mucopurulent secretions of the LLL. The patient was able to be extubated and weaned from high levels of oxygen support. She has also been noted to expectorate large mucoid secretions during coughing spells. At this time she continues denies shortness of breath, pleurisy, fever, chills. WBC: 22K8K ABG all on 06/13/16 o(0026) 7.39/36/81/22BiPAP-100% o(0146) 7.30/52/55/25AC/16/400/PEEP15/100% A-a gradient: 569 o(0315) 7.15/69/127/25 o(0519) 7.21/61/160/24---AC/60%/Vt:400/PEEP:15 A-a gradient: 178 Phos: 1.1 Microbiology: oNegative to date oPathology: WNL CXR(05/08/16,06/12/16,06/13/16,) reviewed CTA thorax (06/13/16) Stella signs of PE oLLL atelectasis vs. effusion vs. pna oLUL 9mm pleural based nodule oLingular infiltrates with associated bronchicectasis oMultiple Lingular baaed nodules largest 11cm oRLL atelectasis vs. effusion vs. pna CXR (11/02/2014) oDiscoid atelectasis of the left lower lobe Thoracic spinal imaging 10/12/2012 oDiscoid atelectasis of the left lower lobe Historian: patient, EMS Review of Systems Constitutional: reports: weakness Eyes: reports: no symptoms ENT: reports: no symptoms Cardiovascular: reports: no symptoms Respiratory: reports: cough, sputum production Gastrointestinal: reports: no symptoms Genitourinary - Female: reports: no symptoms Musculoskeletal: reports: no symptoms Integumentary: reports: no symptoms Neurologic: reports: no symptoms Psychiatric: reports: no symptoms Endocrine: no symptoms Hematologic / Lymphatic: no symptoms Allergic / Immunologic: no symptoms Past Medical History Past Medical History: 1.Abnormal findings EGD 2.Allergic rhinitis 3.Cervical high risk human papillomavirus 4.CLIFTON III (cervical intraepithelial neoplasia III/ high grade squamous intraepithelial lesion) 5.Depression 6.Duodenal ulcer 7.Dysphagia 8.Esophageal foreign body 9.Esophagitis 10.Heart murmur 11.Hypercalcemia 12.Moderate cervical dysplasia 13.Nicotine dependence 14.Sciatica 15.Cannabis abuse 16.Arthritis 17.Scoliosis Past Surgical History: no surgical history Family History Heart disease 1.Cystocele 2.malignant neoplasm of breast Social History Denied: History of Alcohol Use Current every day smoker (one pack per day for 24 years) from significant other/Sexually Active Monogamous Relationship Unemployed Using Marijuana Smoking Status: Current Every Day Smoker Marital status: in relationship Housing status: lives with family Occupational Status: unemployed History of MDRO History of MDRO: No Allergies Coded Allergies: No Known Allergies (Verified , 03/21/16) Current Medications Reported Home Medications Medications Dose Route/Sig Max Daily Dose Days Date Category Dose Instructions Pantoprazole Sodium (Pantoprazole) 40 Mg Tab 40 Mg PO QAM 30 06/15/16 Rx Vitamin D (Ergocalciferol) 50,000 Interunit Cap 50,000 Interunit PO WESA@0900 12 06/15/16 Rx Take one pill on Thursday and take one pill on Thursday for the next 6 weeks. Azithromycin 250 Mg Tab 250 Mg PO QAM 5 06/15/16 Rx Physical Physical Exam Vital Signs: Date Time Temp Pulse Resp B/P Pulse Ox O2 Delivery O2 Flow Rate FiO2 06/15/16 16:15 Room Air 06/15/16 12:14 36.6 87 16 127/77 99 Room Air 06/15/16 12:00 Room Air 06/15/16 11:26 108 16 92 Room Air 06/15/16 08:15 Room Air 06/15/16 07:52 36.6 97 16 110/73 92 Room Air 06/15/16 07:47 97 16 93 Room Air 06/15/16 04:47 36.8 99 20 127/74 90 Room Air 06/15/16 04:00 93 Room Air 06/15/16 03:55 90 16 92 Room Air 06/15/16 00:13 36.7 89 20 116/72 92 Room Air 06/15/16 00:00 93 Room Air 06/14/16 23:00 89 14 90 Room Air 06/14/16 20:00 36.8 82 20 114/74 92 Room Air 06/14/16 20:00 Room Air 06/14/16 20:00 84 14 90 Room Air General Appearance: other (thin but no apparent distress) Head: NORMOCEPHALIC, ATRAUMATIC Eyes: PERRLA, NO DISCHARGE, EOMI, SCLERAE NORMAL ENT: other (poor dentition but no signs of ulceration or thrush) Neck: NORMAL RANGE OF MOTION, NO TENDERNESS, TRACHEA MIDLINE Respiratory: other (decreased breath sounds left lower lobe with dullness to percussion) Cardiovasular: REGULAR RATE/RHYTHM, NORMAL S1S2, NO M/G/R, systolic murmur Abdomen: NON TENDER, NORMAL BOWEL SOUNDS, NO REBOUND, NO MASSES, NO GUARDING Genitourinary - Female: EXTERNAL GENITALIA NORMAL Back: NORMAL INSPECTION, NO MIDLINE TENDERNESS, NO CVA TENDERNESS, NO PARAVERTEBRAL TTP Upper Extremities: NO EDEMA, NO DEFORMITY, NORMAL ROM Lower Extremities: NO EDEMA, NO DEFORMITY, NORMAL ROM Pulses: carotid (R) (2+), carotid (L) (2+) Neuro: ALERT, ORIENTED x 3, NORMAL MOTOR EXAM, NORMAL SENSATION, NORMAL CEREBELLAR EXAM Reflexes: biceps (R) (2+), bicpes (L) (2+), patellar (L) (2+), achilles (R) (2+ ) Babinski Testing: right (downgoing), left (downgoing) Psychiatric: NORMAL AFFECT, flat affect Diagnostics Labs Results Past 24 Hours Test 06/15/16 05:37 Range/Units White Blood Count 8.83 4.8-10.8 K/uL Red Blood Count 3.40 4.2-5.4 M/uL Hemoglobin 9.7 12.0-16.0 g/dL Hematocrit 30.1 37-47 % Mean Corpuscular Volume 88.5 80-100 fL Mean Corpuscular Hemoglobin 28.5 25-34 pg Mean Corpuscular Hemoglobin Concent 32.2 32-36 g/dl Platelet Count 244 130-400 K/uL Mean Platelet Volume 9.4 7.4-10.4 fL Neutrophils (%) (Auto) 72.9 % Lymphocytes (%) (Auto) 18.3 % Monocytes (%) (Auto) 6.2 % Eosinophils (%) (Auto) 2.2 % Basophils (%) (Auto) 0.2 % Neutrophils # (Auto) 6.43 1.4-6.5 K/uL Lymphocytes # (Auto) 1.62 1.2-3.4 K/uL Monocytes # (Auto) 0.55 0.11-0.59 K/uL Eosinophils # (Auto) 0.19 0-0.5 K/uL Basophils # (Auto) 0.02 0-0.2 K/uL RDW Standard Deviation 53.1 36.4-46.3 fL RDW Coefficient of Variation 16.4 11.5-14.5 % Immature Granulocyte % (Auto) 0.2 % Immature Granulocyte # (Auto) 0.02 0.00-0.02 K/uL Sodium Level 144 136-145 mmol/L Potassium Level 3.5 3.5-5.1 mmol/L Chloride Level 110 98-107 mmol/L Carbon Dioxide Level 24 21-32 mmol/L Anion Gap 10.0 3-11 mmol/L Blood Urea Nitrogen 2 7-18 mg/dl Creatinine 0.31 0.60-1.20 mg/dl Est Creatinine Clear Calc Drug Dose 191.6 ml/min Estimated GFR () > 150.0 Estimated GFR (Non- 141.7 BUN/Creatinine Ratio 4.8 10-20 Random Glucose 101 70-99 mg/dl Calcium Level 8.2 8.5-10.1 mg/dl Phosphorus Level 1.1 2.5-4.9 mg/dl Magnesium Level 2.2 1.8-2.4 mg/dl Diagnostic Radiology CXR(05/08/16,06/12/16,06/13/16,) reviewed CTA thorax (06/13/16) Stella signs of PE oLLL atelectasis vs. effusion vs. pna oLUL 9mm pleural based nodule oLingular infiltrates with associated bronchicectasis oMultiple Lingular baaed nodules largest 11cm oRLL atelectasis vs. effusion vs. pna CXR (11/02/2014) oDiscoid atelectasis of the left lower lobe Thoracic spinal imaging 10/12/2012 oDiscoid atelectasis of the left lower lobe EKG Incomplete bundle-branch block/left axis deviation Impression Assessment and Plan 40-year-old female status post aspiration event with severe hypoxemia: #1 Hypoxemia: Hypoxemia most likely secondary to acute V/Q mismatch which has improved after bronchoscopy and chest physiotherapy in the ICU. I suggest at this time we continue aggressive chest physiotherapy: This therapy, flutter valve, incentive spirometer, after ambulation to help remove the bilateral lower lobe left greater than right atelectasis/infiltrate. We'll also order dornase at this time. #2 ID: Patient is progressing but if she starts to spike fevers are WBC counts increase would initiate antibiotic coverage for anaerobes/hospital-acquired pneumonias. #3 Chronic Lung Collapse/Bronchial Atresia: Patient notes her primary care doctor states she had a chronic collapse left lower lobe. After reviewing previous CAT scans as well as thoracic spinal images although back to 2012 it does appear that she might have some left lower lobe discoid atelectasis/ bronchiectasis. This was only a minor part/subsegmental in the left lower lobe it is not associated with her current obstruction.
[2016-06-15] MEDS: DORNASE ALFA (2500U) 2.5MG/2.5ML INH SCH (20:30)
[2016-06-15] MEDS ORDERED: POTASSIUM PHOSPHATE INJ 21 MMOL in SODIUM CHLORIDE 0.9% 500ML 500 ML IV ONE (23:30)
[2016-06-16] VITALS (12 sets, daily range): BP systolic 112–137; BP diastolic 69–87; PULSE 69–94; TEMP 36.4–36.8; O2SAT 90–96
[2016-06-16] MEDS: NORMOSOL R 1,000 ML IV SCH ×3 (01:16→21:45)
[2016-06-16] MEDS: IPRATROPIUM BROMIDE NEB SOLN 0.02% 2.5 ML VIAL INH SCH ×5 (03:30→20:21)
[2016-06-16] MEDS: LEVALBUTEROL 1.25MG/0.5ML NEB INH SCH ×5 (03:30→20:21)
[2016-06-16 06:20] LABS: HEMATOCRIT 28.8 % (37-47); MEAN CELL VOLUME 88.3 fL (80-100); MEAN CORPUSCULAR HEMOGLOBIN 28.8 pg (25-34); MEAN CORPUSCULAR HGB CONC 32.6 g/dl (32-36); MEAN PLATELET VOLUME 9.3 fL (7.4-10.4); PLATELET COUNT 236 K/uL (130-400); RED BLOOD COUNT 3.26 M/uL (4.2-5.4); WHITE BLOOD COUNT 5.65 K/uL (4.8-10.8)
[2016-06-16 07:05] LABS: BLOOD UREA NITROGEN < 1 mg/dl (7-18); CALCIUM 8.2 mg/dl (8.5-10.1); CARBON DIOXIDE 24 mmol/L (21-32); CHLORIDE 109 mmol/L (98-107); GLUCOSE 102 mg/dl (70-99); POTASSIUM 3.5 mmol/L (3.5-5.1); SODIUM 144 mmol/L (136-145)
[2016-06-16 07:08] LABS: PHOSPHORUS 2.6 mg/dl (2.5-4.9)
[2016-06-16] MEDS: DORNASE ALFA (2500U) 2.5MG/2.5ML INH SCH ×2 (08:00→20:21)
--- NOTE | 2016-06-16 08:08 | Pulmonology Progress Note ---
Pulmonary Progress Note Date of Service Jun 16, 2016. Attending Harjit Horvath Subjective Patient continues to deny shortness of breath at rest and/or with ambulation. She also notes no increase in sputum production over the last 12-16 hours. Objective Patient sitting in bed today showing no signs of increased work of breathing: No tachypnea, accessory muscle use or other signs of increased work of breathing. Assessment & Plan 40-year-old female admitted after EGD for lobar atelectasis/hypoxia: #1 lobar atelectasis/hypoxia: Initial hypoxia with AA gradient greater than 500 most likely secondary to acute VQ scan changes with lobar atelectasis greatest in the left lower lobe. At this time she still maintains her SaO2 in the low 90s on room air. On physical exam she still has decreased breath sounds bilaterally. I will send her for noncontrast CT of the chest and perform ABG for further evaluation. If she continues to have lobar atelectasis I suggest we perform bronchoscopy at that time. She could have a component of underlying lung disease which will have to be worked up with pulmonary function tests as an outpatient. #2 bronchiectasis: Patient's previous radiographic examination suggest a possibility of chronic left lower lobe bronchiectasis/atresia. If the patient's CAT scan continued to have severe lobar atelectasis or perform bronchoscopy for evaluation. If bronchoscopy isn't warranted at that time future evaluations/ follow-up with repeat CAT scan and/or bronchoscopy as an outpatient would be warranted. #3 ID: Once again patient's leukocytosis is resolving continue to monitor at this time. I agree with discontinuation of azithromycin on the if she shows no signs of secondary infection. #4 COPD: CT imaging does suggest possible emphysematous changes but will have to be worked up as an outpatient as pulmonary function tests at this time would be unwarranted, decreased lung capacity secondary to lobar atelectasis. Data Medications: Current Inpatient Medications Medications (Trade) Dose Ordered Sig/Oscar Route Start Time Stop Time Status Last Admin Dose Admin Acetaminophen (Tylenol Tab) 650 mg Q4H PRN PO 06/12/16 17:45 07/12/16 17:44 Ondansetron HCl (Zofran Inj) 4 mg Q6H PRN IV 06/12/16 17:45 07/12/16 17:44 Ipratropium [place] (Atrovent 0.02% 0.5MG/2.5ML Neb) 0.5 mg Q2H PRN INH 06/12/16 21:30 07/12/16 21:29 06/12/16 23:49 0.5 MG Levalbuterol 1.25 mg 1.25 mg Q2H PRN INH 06/12/16 21:30 07/12/16 21:29 06/12/16 23:49 1.25 MG Parenteral Electrolyte Solution (Normosol R) 1,000 ml @ 100 mls/hr Q10H IV 06/13/16 03:30 07/13/16 03:29 06/16/16 01:16 100 MLS/HR Enoxaparin Sodium 30 mg 30 mg QAM SQ 06/13/16 09:00 07/13/16 08:59 06/15/16 08:16 30 MG Pantoprazole Sodium 40 mg/ Syringe 10 ml @ 5 mls/min DAILY@11 IV 06/13/16 11:00 07/13/16 10:59 06/15/16 10:33 5 MLS/MIN Acetaminophen/ Empty Bag (Ofirmev IV/ Empty Iv Bag 100ml) 65 ml @ 260 mls/hr Q6H PRN IV 06/13/16 05:15 07/13/16 05:14 06/13/16 08:31 260 MLS/HR Ipratropium [place] (Atrovent 0.02% 0.5MG/2.5ML Neb) 0.5 mg Q4R INH 06/13/16 08:00 07/13/16 07:59 06/16/16 03:30 0.5 MG Levalbuterol (Xopenex 1.25MG/ 0.5ML Neb) 1.25 mg Q4R INH 06/13/16 08:00 07/13/16 07:59 06/16/16 03:30 1.25 MG Ioversol (Optiray 320) 100 ml UD PRN IV 06/13/16 11:15 06/17/16 11:14 Azithromycin (Zithromax Tab) 250 mg QAM PO 06/14/16 09:00 06/17/16 09:01 06/15/16 08:15 250 MG Nicotine (Nicoderm Cq 14MG Patch) 1 patch QAM TD 06/14/16 09:00 07/14/16 08:59 06/15/16 15:59 1 PATCH Miscellaneous (Remove Nicoderm Patch) 1 ea HS N/A 06/14/16 21:00 07/14/16 20:59 06/15/16 20:56 1 EA Ergocalciferol (Vitamin D Cap) 50,000 interunit WeSa@0900 PO 06/14/16 12:00 07/14/16 11:59 06/14/16 11:33 50,000 INTERUNIT Pantoprazole Sodium (Protonix Tab) 40 mg QAM PO 06/15/16 09:00 07/15/16 08:59 06/15/16 08:15 40 MG Dornase Niraj (Pulmozyme Inhalation Soln 2.5ml Amp) 2.5 ml BIDR INH 06/15/16 20:00 07/15/16 19:59 06/15/16 20:30 2.5 ML I & O: 24-Hour Column 06/16/16 07:59 Intake Total 3695 ml Balance 3695 ml Vital Signs: Date Time Temp Pulse Resp B/P Pulse Ox O2 Delivery O2 Flow Rate FiO2 06/16/16 07:46 36.4 80 16 112/69 92 Room Air 06/16/16 04:24 36.8 82 16 116/76 90 Room Air 06/16/16 04:07 Room Air 06/16/16 03:31 78 16 95 Room Air 06/15/16 23:39 88 16 94 Room Air 06/15/16 23:15 Room Air 06/15/16 22:52 36.5 87 16 111/73 93 Room Air 06/15/16 20:30 83 16 95 Room Air 06/15/16 20:00 Room Air 06/15/16 19:49 36.4 89 20 123/80 95 Room Air 06/15/16 18:47 36.6 96 18 120/78 94 Room Air 06/15/16 16:15 Room Air 06/15/16 16:05 90 16 94 Room Air 06/15/16 12:14 36.6 87 16 127/77 99 Room Air 06/15/16 12:00 Room Air 06/15/16 11:26 108 16 92 Room Air 06/15/16 08:15 Room Air Laboratory Results: Last 24 Hours Test 06/15/16 20:48 06/16/16 05:38 Phosphorus Level 1.4 mg/dl 2.6 mg/dl White Blood Count 5.65 K/uL Red Blood Count 3.26 M/uL Hemoglobin 9.4 g/dL Hematocrit 28.8 % Mean Corpuscular Volume 88.3 fL Mean Corpuscular Hemoglobin 28.8 pg Mean Corpuscular Hemoglobin Concent 32.6 g/dl RDW Standard Deviation 54.2 fL RDW Coefficient of Variation 16.6 % Platelet Count 236 K/uL Mean Platelet Volume 9.3 fL Sodium Level 144 mmol/L Potassium Level 3.5 mmol/L Chloride Level 109 mmol/L Carbon Dioxide Level 24 mmol/L Anion Gap 11.0 mmol/L Blood Urea Nitrogen < 1 mg/dl Creatinine 0.30 mg/dl Est Creatinine Clear Calc Drug Dose 201.1 ml/min Estimated GFR () > 150.0 Estimated GFR (Non- 143.2 BUN/Creatinine Ratio Random Glucose 102 mg/dl Calcium Level 8.2 mg/dl
[2016-06-16] MEDS: PANTOprazole SOD 40 MG TAB PO SCH (08:11)
[2016-06-16] MEDS: AZITHROMYCIN 250 MG TAB PO SCH (08:11)
[2016-06-16] MEDS: ENOXAPARIN 30 MG/0.3 ML SYR SQ SCH (08:12)
[2016-06-16 08:24] LABS: HYDROXYETHYLFLURAZEPAM CONF NEGATIVE NG/ML (CUTOFF=50); HYDROXYMIDAZOLAM >2000 NG/ML (CUTOFF=50); HYDROXYTRIAZOLAM CONF NEGATIVE NG/ML (CUTOFF=50); TEMAZEPAM CONF NEGATIVE NG/ML (CUTOFF=50)
[2016-06-16] MEDS: NICOTINE 14 MG/24 HR TDSY TD SCH (08:54)
[2016-06-16 09:13] LABS: ALLEN TEST POS (POS); ARTERIAL BLOOD GAS BASE EXCESS 1.9 mEq/L (-9-1.8); ARTERIAL BLOOD GAS HCO3 26 mmol/L (19-24); ARTERIAL BLOOD GAS PO2 70 mm/Hg (80-95); ARTERIAL BLOOD GAS pH 7.45 (7.35-7.45); O2 ADMINISTRATION RA
--- NOTE | 2016-06-16 10:01 | DIAGNOSTIC IMAGING REPORT ---
CT OF THE CHEST WITHOUT IV CONTRAST CLINICAL HISTORY: lobar atelectasis COMPARISON STUDY: CT scan dated 06/13/2016 CT DOSE: 223.51 mGy.cm TECHNIQUE: CT of the thorax was performed from the thoracic inlet to the lung bases. Images are reviewed in the axial, sagittal, and coronal planes. IV contrast was not administered for this examination. FINDINGS: Thyroid: Imaged portions of the thyroid gland are normal in appearance. Thoracic aorta: The thoracic aorta is normal in course and caliber, noting standard 3 vessel arch anatomy. Heart: The heart is normal in size and configuration, without pericardial effusion. Lungs and pleural spaces: There is a persistent and slightly increasing small left pleural effusion. There are persistent nodular airspace opacities within the left upper lobe which appear progressive. There is persistent left lower lobe atelectasis/consolidation with air bronchograms. Dependent right lower lobe opacities appear atelectatic. These appear improved. Mediastinum: There is no mediastinal lymphadenopathy. Elizabeth: There is no evidence of pathologic hilar adenopathy given the limitations of a noncontrast study. Axilla: Clear. Upper abdomen: Partially visualized upper abdominal viscera is within normal limits. Skeletal structures: There are no lytic or blastic osseous lesions. IMPRESSION: 1. Progressive nodular left upper lobe airspace opacities consistent with a worsening pneumonia 2. Persistent left lower lobe atelectasis/consolidation with air bronchograms 3. Slight enlargement in the small left pleural effusion 4. Improving right basilar atelectasis Electronically signed by: Wilfred العلي M.D. 06/16/2016 10:00 AM Dictated Date/Time: 06/16/2016 9:53 AM
[2016-06-16] MEDS: PANTOprazole INJ 40 MG in SYRINGE 0 ML IV SCH (12:06)
--- NOTE | 2016-06-16 15:25 | Family Medicine Progress Note ---
Progress Note Date of Service Jun 16, 2016. Subjective Pt evaluation today including: conversation w/ patient, physical exam, chart review, lab review, review of studies Voiding: no voiding problems, no incontinence Patient is doing well today and has no acute complaints. Patient continues to have shortness of breath and cannot lay flat due to reflux, but denies shortness of breath today. Constitutional: No chills, No fever, No sweats Respiratory: + cough, No shortness of breath, No sputum Cardiovascular: No chest pain Abdomen: No nausea, No pain, No vomiting Medications Current Inpatient Medications Medications (Trade) Dose Ordered Sig/Oscar Route Start Time Stop Time Status Last Admin Dose Admin Acetaminophen (Tylenol Tab) 650 mg Q4H PRN PO 06/12/16 17:45 07/12/16 17:44 Ondansetron HCl (Zofran Inj) 4 mg Q6H PRN IV 06/12/16 17:45 07/12/16 17:44 Ipratropium [place] (Atrovent 0.02% 0.5MG/2.5ML Neb) 0.5 mg Q2H PRN INH 06/12/16 21:30 07/12/16 21:29 06/12/16 23:49 0.5 MG Levalbuterol 1.25 mg 1.25 mg Q2H PRN INH 06/12/16 21:30 07/12/16 21:29 06/12/16 23:49 1.25 MG Parenteral Electrolyte Solution (Normosol R) 1,000 ml @ 100 mls/hr Q10H IV 06/13/16 03:30 07/13/16 03:29 06/16/16 11:15 100 MLS/HR Enoxaparin Sodium 30 mg 30 mg QAM SQ 06/13/16 09:00 07/13/16 08:59 06/16/16 08:12 30 MG Pantoprazole Sodium 40 mg/ Syringe 10 ml @ 5 mls/min DAILY@11 IV 06/13/16 11:00 07/13/16 10:59 06/16/16 12:06 5 MLS/MIN Acetaminophen/ Empty Bag (Ofirmev IV/ Empty Iv Bag 100ml) 65 ml @ 260 mls/hr Q6H PRN IV 06/13/16 05:15 07/13/16 05:14 06/13/16 08:31 260 MLS/HR Ipratropium [place] (Atrovent 0.02% 0.5MG/2.5ML Neb) 0.5 mg Q4R INH 06/13/16 08:00 07/13/16 07:59 06/16/16 11:20 0.5 MG Levalbuterol (Xopenex 1.25MG/ 0.5ML Neb) 1.25 mg Q4R INH 06/13/16 08:00 07/13/16 07:59 06/16/16 11:20 1.25 MG Ioversol (Optiray 320) 100 ml UD PRN IV 06/13/16 11:15 06/17/16 11:14 Azithromycin (Zithromax Tab) 250 mg QAM PO 06/14/16 09:00 06/17/16 09:01 06/16/16 08:11 250 MG Nicotine (Nicoderm Cq 14MG Patch) 1 patch QAM TD 06/14/16 09:00 07/14/16 08:59 06/16/16 08:54 1 PATCH Miscellaneous (Remove Nicoderm Patch) 1 ea HS N/A 06/14/16 21:00 07/14/16 20:59 06/15/16 20:56 1 EA Ergocalciferol (Vitamin D Cap) 50,000 interunit WeSa@0900 PO 06/14/16 12:00 07/14/16 11:59 06/14/16 11:33 50,000 INTERUNIT Pantoprazole Sodium (Protonix Tab) 40 mg QAM PO 06/15/16 09:00 07/15/16 08:59 06/16/16 08:11 40 MG Dornase Niraj (Pulmozyme Inhalation Soln 2.5ml Amp) 2.5 ml BIDR INH 06/15/16 20:00 07/15/16 19:59 06/15/16 20:30 2.5 ML Objective Vital Signs Date Time Temp Pulse Resp B/P Pulse Ox O2 Delivery O2 Flow Rate FiO2 06/16/16 12:00 94 Room Air 06/16/16 11:20 79 16 94 Room Air 06/16/16 08:41 92 Room Air 06/16/16 07:46 36.4 80 16 112/69 92 Room Air 06/16/16 04:24 36.8 82 16 116/76 90 Room Air 06/16/16 04:07 Room Air 06/16/16 03:31 78 16 95 Room Air 06/15/16 23:39 88 16 94 Room Air 06/15/16 23:15 Room Air 06/15/16 22:52 36.5 87 16 111/73 93 Room Air 06/15/16 20:30 83 16 95 Room Air 06/15/16 20:00 Room Air 06/15/16 19:49 36.4 89 20 123/80 95 Room Air 06/15/16 18:47 36.6 96 18 120/78 94 Room Air 06/15/16 16:15 Room Air 06/15/16 16:05 90 16 94 Room Air Physical Exam General Appearance: WD/WN, no apparent distress Respiratory/Chest: chest non-tender, lungs clear, normal breath sounds, + pertinent finding (Decreased breath sounds over left lower lobe) Cardiovascular: regular rate, rhythm, no edema, no gallop, no murmur Abdomen: normal bowel sounds, non tender, soft Extremities: no calf tenderness Neurologic/Psychiatric: alert, normal mood/affect, oriented x 3 Laboratory Results Results Past 24 Hours Test 06/15/16 20:48 06/16/16 05:38 06/16/16 08:58 Range/Units Phosphorus Level 1.4 2.6 2.5-4.9 mg/dl White Blood Count 5.65 4.8-10.8 K/uL Red Blood Count 3.26 4.2-5.4 M/uL Hemoglobin 9.4 12.0-16.0 g/dL Hematocrit 28.8 37-47 % Mean Corpuscular Volume 88.3 80-100 fL Mean Corpuscular Hemoglobin 28.8 25-34 pg Mean Corpuscular Hemoglobin Concent 32.6 32-36 g/dl RDW Standard Deviation 54.2 36.4-46.3 fL RDW Coefficient of Variation 16.6 11.5-14.5 % Platelet Count 236 130-400 K/uL Mean Platelet Volume 9.3 7.4-10.4 fL Sodium Level 144 136-145 mmol/L Potassium Level 3.5 3.5-5.1 mmol/L Chloride Level 109 98-107 mmol/L Carbon Dioxide Level 24 21-32 mmol/L Anion Gap 11.0 3-11 mmol/L Blood Urea Nitrogen < 1 7-18 mg/dl Creatinine 0.30 0.60-1.20 mg/dl Est Creatinine Clear Calc Drug Dose 201.1 ml/min Estimated GFR () > 150.0 Estimated GFR (Non- 143.2 BUN/Creatinine Ratio 10-20 Random Glucose 102 70-99 mg/dl Calcium Level 8.2 8.5-10.1 mg/dl Arterial Blood pH 7.45 7.35-7.45 Arterial Blood Partial Pressure CO2 38 35-46 mmHg Arterial Blood Partial Pressure O2 70 80-95 mm/Hg Arterial Blood HCO3 26 19-24 mmol/L Arterial Blood Oxygen Saturation 93.0 90-95 % Arterial Blood Base Excess 1.9 -9-1.8 mEq/L Arterial Blood Gas Delivery RA Salbador Test POS POS Assessment and Plan Patient is a 40 year old female that presented for an upper endoscopy for chronic GERD with Dr. Alejandro and suffered respiratory failure during extubation requiring intubation and admission to the ICU 1) Acute Hypoxemic Respiratory Failure - Hypoxemia 2/2 VQ mismatch - Chest Physio - Flutter valve - Incentive spirometry - Dornase - Patient being followed by Dr. Fuller - Plan for CT Chest and ABG, with plan to go for bronch tomorrow if continued obstruction to left lower lobe of the lung - Patient has chronic LLL atelectasis/ bronchiectasis not associated with current condition 2) Aspiration Pneumonia - Likely 2/2 Aspiration post EGD - Afebrile, WBC trending down - D/c Azithromycin 3) Chronic GERD - Fluid visible surrounding esophagus on imaging - Esophagus filled with fluid, placing patient at risk for further aspiration 4) Hypophosphatemia - PO4 of 2.6 today after got 20 mmol of KPhos last night 5) Low Vitamin D - Vit D 50,000 IU twice weekly 6) GI Prophylaxis - Pantoprazole 40mg BID 7) Tobacco - Nicoderm patch 14mg 8) DVT Prophylaxis - Lovenox 30mg
--- NOTE | 2016-06-16 15:27 | Anesthesiology Progress Note ---
Anesthesia Progress Note Date of Service Jun 16, 2016. Progress Notes This is a 40 y/o w female presenting for a bronchoscopy.PMHx is sig for recent duodenal ulcer,anemia,tobacco smoking,marijuana smoking,recent intubation for hypoxia/respiratory failure/pneumonia,bronchiectasis,GERD,arrhythmias,and scoliosis.Discussed anesthesia w/ pt and family,all questions answered.Will obtain consent prior to procedure,tomorrow.
--- NOTE | 2016-06-16 20:31 | ECHOCARDIOGRAM REPORT ---
*NOTICE TO RECEIVING REPUBLICAN AGENCY This information is strictly Confidential and protected under [place] law. [place] law prohibits you from making any further disclosure of this information unless further disclosure is expressly permitted by the written consent of the person to whom it pertains or is authorized by law. A general authorization for the release of medical or other information is not sufficient for this purpose. Hospital accepts no responsibility if the information is made available to any other person, INCLUDING THE PATIENT. Interpretation Summary * Name: IAN RENDON Study Date: 06/15/2016 04:14 PM BP: 127/77 mmHg * Patient Location: [facility]\S\[id number]\S\2 HR: 87 * : 1975 (M/d/yyyy) Gender: Female Height: 64 in * Age: 40 yrs Ethnicity: [place] Weight: 112 lb * Ordering Physician: Aquilino Armstrong * Referring Physician: Sammie Anderson * Performed By: Ling Loomis RDCS * * Reason For Study: LBBB, tachycardia, acute respiratory failure with hypoxia * BSA: 1.5 m2 * Normal biventricular systolic function. * Normal chamber dimensions. * No significant valvular abnormalities. Procedure Details * A complete two-dimensional transthoracic echocardiogram was performed (2D, M-mode, Doppler and color flow Doppler). * The study was technically difficult. * There were technical limitations due to patient'spoor positioning Left Ventricle * The left ventricle is normal in size. * There is normal left ventricular wall thickness. * Ejection Fraction = 55-60%. * Left ventricular systolic function is normal. * Septal motion is consistent with conduction abnormality. Right Ventricle * The right ventricle is normal in size and function. Atria * The left atrial size is normal. * Right atrial size is normal. * No ASD detected; PFO is not assessed. Mitral Valve * The mitral valve is normal. * There is no mitral valve stenosis. * There is no mitral regurgitation noted. Tricuspid Valve * The tricuspid valve is normal. * There is no tricuspid stenosis. * There is trace tricuspid regurgitation. * Right ventricular systolic pressure is normal. Aortic Valve * The aortic valve is trileaflet. * The aortic valve opens well. * Aortic stenosis is absent. * No aortic regurgitation is present. Pulmonic Valve * The pulmonic valve is not well seen, but is grossly normal. * There is no pulmonic valvular stenosis. * There is no significant pulmonary regurgitation. Great Vessels * The aortic root is normal size. Pericardium/Pleural * There is no pericardial effusion. Great Vessels * The inferior vena cava is mildly dilated. MMode 2D Measurements and Calculations IVSd 0.85 cm LVIDd 3.8 cm LVIDs 2.6 cm LVPWd 0.83 cm IVS/LVPW 1.0 FS 31.9 % EDV(Teich) 63.4 ml ESV(Teich) 24.9 ml EF(Teich) 60.7 % EDV(cubed) 56.5 ml ESV(cubed) 17.8 ml EF(cubed) 68.4 % LV mass(C)d 93.5 grams LV mass(C)dI 61.2 grams/m\S\2 SV(Teich) 38.5 ml SI(Teich) 25.2 ml/m\S\2 SV(cubed) 38.7 ml SI(cubed) 25.3 ml/m\S\2 Ao root diam 2.5 cm Ao root area 4.7 cm\S\2 ACS 1.9 cm LA dimension 2.0 cm asc Aorta Diam 2.5 cm LA/Ao 0.81 LVOT diam 2.0 cm LVOT area 3.0 cm\S\2 LVAd ap4 18.6 cm\S\2 LVLd ap4 5.9 cm EDV(MOD-sp4) 47.7 ml EDV(sp4-el) 49.9 ml LVAs ap4 11.5 cm\S\2 LVLs ap4 5.0 cm ESV(MOD-sp4) 21.8 ml ESV(sp4-el) 22.4 ml EF(MOD-sp4) 54.2 % EF(sp4-el) 55.1 % LVAd ap2 20.0 cm\S\2 LVLd ap2 7.6 cm EDV(MOD-sp2) 42.7 ml EDV(sp2-el) 44.6 ml LVAs ap2 11.6 cm\S\2 LVLs ap2 5.6 cm ESV(MOD-sp2) 19.7 ml ESV(sp2-el) 20.5 ml EF(MOD-sp2) 53.9 % EF(sp2-el) 54.2 % LVLd %diff 22.3 % EDV(MOD-bp) 51.6 ml LVLs %diff 9.9 % ESV(MOD-bp) 21.9 ml EF(MOD-bp) 57.5 % SV(MOD-sp4) 25.9 ml SI(MOD-sp4) 16.9 ml/m\S\2 SV(MOD-sp2) 23.0 ml SI(MOD-sp2) 15.0 ml/m\S\2 SV(MOD-bp) 29.7 ml SI(MOD-bp) 19.4 ml/m\S\2 SV(sp4-el) 27.5 ml SI(sp4-el) 18.0 ml/m\S\2 SV(sp2-el) 24.2 ml SI(sp2-el) 15.8 ml/m\S\2 Doppler Measurements and Calculations MV E max stan 85.7 cm/sec MV A max stan 75.4 cm/sec MV E/A 1.1 MV dec time 0.19 sec Ao V2 max 108.8 cm/sec Ao max PG 4.7 mmHg Ao max PG (full) 1.5 mmHg EVELIN(V,A) 2.5 cm\S\2 EVELIN(V,D) 2.5 cm\S\2 LV V1 max PG 3.3 mmHg LV V1 max 90.2 cm/sec PA V2 max 90.6 cm/sec PA max PG 3.3 mmHg PA acc slope 762.4 cm/sec\S\2 PA acc time 0.10 sec TR max stan 90.5 cm/sec PA pr(Accel) 33.2 mmHg
[2016-06-17] VITALS (14 sets, daily range): BP systolic 104–126; BP diastolic 67–80; PULSE 77–117; TEMP 36.5–36.7; O2SAT 90–97
[2016-06-17] MEDS ORDERED: LORAZEPAM 0.5 MG TAB PO STA ×2 (00:31→22:47)
[2016-06-17] MEDS: IPRATROPIUM BROMIDE NEB SOLN 0.02% 2.5 ML VIAL INH SCH ×6 (02:30→20:20)
[2016-06-17] MEDS: LEVALBUTEROL 1.25MG/0.5ML NEB INH SCH ×6 (02:30→20:20)
[2016-06-17 06:27] LABS: BLOOD UREA NITROGEN < 1 mg/dl (7-18); CALCIUM 8.9 mg/dl (8.5-10.1); CARBON DIOXIDE 27 mmol/L (21-32); CHLORIDE 105 mmol/L (98-107); CREATININE 0.39 mg/dl (0.60-1.20); GLUCOSE 93 mg/dl (70-99); POTASSIUM 3.7 mmol/L (3.5-5.1); SODIUM 144 mmol/L (136-145)
[2016-06-17 06:46] LABS: PHOSPHORUS 3.8 mg/dl (2.5-4.9)
[2016-06-17] MEDS: DORNASE ALFA (2500U) 2.5MG/2.5ML INH SCH ×2 (07:39→20:20)
[2016-06-17] MEDS: NICOTINE 14 MG/24 HR TDSY TD SCH (08:03)
[2016-06-17] MEDS: ENOXAPARIN 30 MG/0.3 ML SYR SQ SCH (08:03)
[2016-06-17] MEDS: AZITHROMYCIN 250 MG TAB PO SCH (09:00)
[2016-06-17] MEDS: PANTOprazole SOD 40 MG TAB PO SCH (09:00)
--- NOTE | 2016-06-17 09:09 | History & Physical Bridge Note ---
H&P Re-Evaluation Bridge Note: I have examined the patient, reviewed the History & Physical and in the interval since the performance of the History & Physical I have noted the following changes of clinical significance: No changes noted
[2016-06-17] MEDS: NORMOSOL R 1,000 ML IV SCH ×2 (11:00→18:17)
[2016-06-17] MEDS ORDERED: LIDOCAINE HCL 2% 2 ML VIAL (20MG/ML) ONE (11:13)
[2016-06-17] MEDS ORDERED: DEXAMETHASONE SOD INJ 4 MG/ML VIAL ONE (11:13)
[2016-06-17] MEDS ORDERED: PROPOFOL IV EMULSION 10 MG/ML 20 ML VIAL IV ONE (11:13)
[2016-06-17] MEDS ORDERED: FENTANYL CITRATE INJ 50 MCG/1 ML 2 ML VIAL ONE (11:13)
[2016-06-17] MEDS ORDERED: ONDANSETRON INJ 2 MG/ML 2 ML VIAL ONE (11:13)
[2016-06-17] MEDS ORDERED: MIDAZOLAM HCL 1 MG/ML 2ML VIAL ONE ×2 (11:13→12:37)
[2016-06-17] MEDS ORDERED: KETAMINE HCL INJ 50 MG/ML 10 ML VIAL ONE (12:38)
[2016-06-17] MEDS ORDERED: ROCURONIUM BROMIDE 10 MG/ML 5 ML VIAL ONE (13:13)
--- NOTE | 2016-06-17 13:17 | Bronchoscopy Procedure Note ---
Bronchoscopy Procedure Note Procedure: Bronchoscopy/bronchial alveolar lavage Sedation: Please refer to anesthesia's note Preoperative diagnosis: Lobar collapse Postoperative diagnosis: Subsegmental collapse Consent: Obtained to the patient placed in the chart Local analgesia: Gel lidocaine: 5 cc Procedure: The Olympus video bronchoscope was used for this procedure along with the BiPAP ventilatory mask. Left naris: Anatomically within normal limits Posterior naris: Anatomically within normal limits Posterior pharynx: Anatomically within normal limits Glottis: Anatomically within normal limits Diffuse mucus secretions were noted around the glottis and suctioned clear Vocal cords: Unable to get the patient to perform proper abduction or abduction maneuvers Subglottis/trachea: Anatomically within normal limits Jannette: Sharp/anatomically within normal limits Left bronchial tree: Left mainstem: Anatomically within normal limits Left upper lobe/lingula: Anatomically within normal limits Left lower lobe: Anatomically within normal limits no mucous plugging appreciated Right bronchial tree: Right mainstem, anatomically within normal limits Right upper lobe: Anatomically within normal limits Bronchus intermedius: Anatomically within normal limits Right middle lobe: Anatomically within normal limits Right lower lobe: Anatomically within normal limits BAL: 60 cc aliquot was sensitive to the left lower lobe with approximately 30 cc were returned Sample: We sent off for microbiologic and fungal analysis. EBL: None Complications: None Recovery: Patient will recover the postop area and then return to her room.
[2016-06-17] MEDS ORDERED: ATROPINE SULFATE 0.1 MG/ML 5ML SYR IV PRN (13:30)
[2016-06-17] MEDS ORDERED: EpHEDrine SULFATE INJ 50 MG/ML AMP IV PRN (13:30)
[2016-06-17] MEDS ORDERED: ALBUTEROL 0.083% NEBU SOLN 3 ML VIAL INH ONE (13:31)
[2016-06-17] MEDS ORDERED: ALBUTEROL 0.083% NEBU SOLN 3 ML VIAL INH STA (13:32)
[2016-06-17] MEDS: PANTOprazole INJ 40 MG in SYRINGE 0 ML IV SCH (13:47)
--- NOTE | 2016-06-17 13:47 | Anesthesiology Progress Note ---
Anesthesia Post Op Note Date & Time Jun 17, 2016 at 13:47 Vital Signs Pain Intensity: 0 Vital Signs Past 12 Hours Date Time Temp Pulse Resp B/P Pulse Ox O2 Delivery O2 Flow Rate FiO2 06/17/16 13:30 91 16 124/85 90 Nasal Cannula 4 06/17/16 13:20 89 16 126/83 93 Nasal Cannula 4 06/17/16 13:10 90 16 130/80 96 Mask 10 06/17/16 13:00 36.5 95 16 123/84 95 Mask 10 06/17/16 11:29 84 16 90 Room Air 06/17/16 08:15 Room Air 06/17/16 07:40 84 16 95 Room Air 06/17/16 07:19 77 16 104/67 94 Room Air 06/17/16 04:00 36.5 87 16 109/68 92 Room Air 06/17/16 04:00 96 Room Air 06/17/16 02:30 84 16 95 Room Air Notes Mental Status: alert / awake / arousable, participated in evaluation Pt Amnestic to Procedure: Yes Nausea / Vomiting: adequately controlled Pain: adequately controlled Airway Patency, RR, SpO2: stable & adequate BP & HR: stable & adequate Hydration State: stable & adequate Anesthetic Complications: no major complications apparent
--- NOTE | 2016-06-17 15:14 | Family Medicine Progress Note ---
Progress Note Date of Service Jun 17, 2016. Subjective Pt evaluation today including: conversation w/ patient, physical exam, chart review, lab review, review of studies Voiding: no voiding problems Patient is still having a cough, but produced a significant amount of sputum last night and feels that her breathing has significantly improved Constitutional: No chills, No fever, No sweats Respiratory: + cough, + sputum, No shortness of breath, No wheezing Cardiovascular: No chest pain, No orthopnea Abdomen: No nausea, No pain, No vomiting Female : No dysuria Medications Current Inpatient Medications Medications (Trade) Dose Ordered Sig/Oscar Route Start Time Stop Time Status Last Admin Dose Admin Acetaminophen (Tylenol Tab) 650 mg Q4H PRN PO 06/12/16 17:45 07/12/16 17:44 Ondansetron HCl (Zofran Inj) 4 mg Q6H PRN IV 06/12/16 17:45 07/12/16 17:44 Ipratropium [place] (Atrovent 0.02% 0.5MG/2.5ML Neb) 0.5 mg Q2H PRN INH 06/12/16 21:30 07/12/16 21:29 06/12/16 23:49 0.5 MG Levalbuterol 1.25 mg 1.25 mg Q2H PRN INH 06/12/16 21:30 07/12/16 21:29 06/12/16 23:49 1.25 MG Parenteral Electrolyte Solution (Normosol R) 1,000 ml @ 100 mls/hr Q10H IV 06/13/16 03:30 07/13/16 03:29 06/16/16 21:45 100 MLS/HR Enoxaparin Sodium 30 mg 30 mg QAM SQ 06/13/16 09:00 07/13/16 08:59 06/17/16 08:03 30 MG Pantoprazole Sodium 40 mg/ Syringe 10 ml @ 5 mls/min DAILY@11 IV 06/13/16 11:00 07/13/16 10:59 06/16/16 12:06 5 MLS/MIN Acetaminophen/ Empty Bag (Ofirmev IV/ Empty Iv Bag 100ml) 65 ml @ 260 mls/hr Q6H PRN IV 06/13/16 05:15 07/13/16 05:14 06/13/16 08:31 260 MLS/HR Ipratropium [place] (Atrovent 0.02% 0.5MG/2.5ML Neb) 0.5 mg Q4R INH 06/13/16 08:00 07/13/16 07:59 06/17/16 07:39 0.5 MG Levalbuterol (Xopenex 1.25MG/ 0.5ML Neb) 1.25 mg Q4R INH 06/13/16 08:00 07/13/16 07:59 06/17/16 07:39 1.25 MG Ioversol (Optiray 320) 100 ml UD PRN IV 06/13/16 11:15 06/17/16 11:14 Azithromycin (Zithromax Tab) 250 mg QAM PO 06/14/16 09:00 06/17/16 09:01 06/16/16 08:11 250 MG Nicotine (Nicoderm Cq 14MG Patch) 1 patch QAM TD 06/14/16 09:00 07/14/16 08:59 06/17/16 08:03 1 PATCH Miscellaneous (Remove Nicoderm Patch) 1 ea HS N/A 06/14/16 21:00 07/14/16 20:59 06/16/16 21:45 1 EA Ergocalciferol (Vitamin D Cap) 50,000 interunit WeSa@0900 PO 06/14/16 12:00 07/14/16 11:59 06/14/16 11:33 50,000 INTERUNIT Pantoprazole Sodium (Protonix Tab) 40 mg QAM PO 06/15/16 09:00 07/15/16 08:59 06/16/16 08:11 40 MG Dornase Niraj (Pulmozyme Inhalation Soln 2.5ml Amp) 2.5 ml BIDR INH 06/15/16 20:00 07/15/16 19:59 06/17/16 07:39 2.5 ML Objective Vital Signs Date Time Temp Pulse Resp B/P Pulse Ox O2 Delivery O2 Flow Rate FiO2 06/17/16 07:40 84 16 95 Room Air 06/17/16 07:19 77 16 104/67 94 Room Air 06/17/16 04:00 36.5 87 16 109/68 92 Room Air 06/17/16 04:00 96 Room Air 06/17/16 02:30 84 16 95 Room Air 06/17/16 00:00 96 Room Air 06/16/16 23:32 Room Air 06/16/16 23:11 36.7 81 16 114/76 94 Room Air 06/16/16 20:21 82 16 95 Room Air 06/16/16 20:00 96 Room Air 06/16/16 19:15 36.6 69 18 124/79 96 Room Air 06/16/16 16:00 93 Room Air 40 06/16/16 15:40 36.7 94 14 137/87 93 Room Air 06/16/16 12:00 94 Room Air 06/16/16 11:20 79 16 94 Room Air Physical Exam General Appearance: WD/WN, no apparent distress Neck: supple Respiratory/Chest: chest non-tender, lungs clear, normal breath sounds, + decreased breath sounds (Decreased breath sounds over the left lower lobes) Cardiovascular: regular rate, rhythm, no edema, no gallop Abdomen: non tender, soft Neurologic/Psychiatric: pipelines 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 II-XII nml as tested, alert, normal mood/affect Laboratory Results Results Past 24 Hours Test 06/17/16 05:20 Range/Units Sodium Level 144 136-145 mmol/L Potassium Level 3.7 3.5-5.1 mmol/L Chloride Level 105 98-107 mmol/L Carbon Dioxide Level 27 21-32 mmol/L Anion Gap 12.0 3-11 mmol/L Blood Urea Nitrogen < 1 7-18 mg/dl Creatinine 0.39 0.60-1.20 mg/dl Est Creatinine Clear Calc Drug Dose 146.8 ml/min Estimated GFR () > 150.0 Estimated GFR (Non- 131.4 BUN/Creatinine Ratio 10-20 Random Glucose 93 70-99 mg/dl Calcium Level 8.9 8.5-10.1 mg/dl Phosphorus Level 3.8 2.5-4.9 mg/dl Assessment and Plan Patient is a 40 year old female that presented for an upper endoscopy for chronic GERD with Dr. Alejandro and suffered respiratory failure during extubation requiring intubation and admission to the ICU 1) Acute Hypoxemic Respiratory Failure - Hypoxemia 2/2 VQ mismatch - Chest Physio - Flutter valve - Incentive spirometry - Dornase - Patient being followed by Dr. Fuller - Chest CT: Progressive nodular left upper lobe airspace opacities consistent with a worsening pneumonia, Persistent left lower lobe atelectasis/consolidation with air bronchograms - Bronchoscopy today - Dr. Fuller reported that the left and right bronchial trees appeared anatomically normal. BAL fluid sample taken. - Observe overnight and discharge tomorrow 2) Aspiration Pneumonia - Likely 2/2 Aspiration post EGD - Afebrile, WBC trending down - D/c Azithromycin 3) Chronic GERD - Esophagus filled with fluid, placing patient at risk for further aspiration 4) Hypophosphatemia - Resolved 5) Low Vitamin D - Vit D 50,000 IU twice weekly 6) GI Prophylaxis - Pantoprazole 40mg BID 7) Tobacco - Nicoderm patch 14mg 8) DVT Prophylaxis - Lovenox 30mg 9) Disposition - Discharge home tomorrow
[2016-06-17] MEDS ORDERED: NURSING VERBAL MED ORDER ONE (22:45)
[2016-06-18 00:31] VITALS: PULSE 100; O2SAT 93
[2016-06-18] MEDS: NORMOSOL R 1,000 ML IV SCH (02:55)
[2016-06-18] MEDS: LEVALBUTEROL 1.25MG/0.5ML NEB INH SCH ×3 (04:00→06:57)
[2016-06-18] MEDS: IPRATROPIUM BROMIDE NEB SOLN 0.02% 2.5 ML VIAL INH SCH ×3 (04:00→06:57)
[2016-06-18 06:57] VITALS: PULSE 74; O2SAT 93
[2016-06-18] MEDS: DORNASE ALFA (2500U) 2.5MG/2.5ML INH SCH (06:57)
[2016-06-18 06:59] LABS: BLOOD UREA NITROGEN 3 mg/dl (7-18); BUN/CREATININE RATIO 8.1 (10-20); CALCIUM 9.1 mg/dl (8.5-10.1); CARBON DIOXIDE 28 mmol/L (21-32); CHLORIDE 107 mmol/L (98-107); CREATININE 0.36 mg/dl (0.60-1.20); GLUCOSE 102 mg/dl (70-99); POTASSIUM 4.1 mmol/L (3.5-5.1); SODIUM 144 mmol/L (136-145)
--- NOTE | 2016-06-18 07:14 | Discharge Instructions ---
Discharge Instructions Admission Reason for Admission: Doudenal Ulcer Discharge Discharge Diagnosis / Problem: Acute Respiratory Failure Discharge Goals Goal(s): Improve function Activity Recommendations Activity Limitations: per Instructions/Follow-up section Lifting Limitations: gradually increase as tolerated Exercise/Sports Limitations: as tolerated May Resume Sexual Activity: when tolerated Shower/Bathe: no limitations . Instructions / Follow-Up Instructions / Follow-Up Instructions / Follow-Up Please follow up with your Primary Care Doctor within 7 days of discharge. - Follow up with Dr. Alejandro the Fish Housekeeper (stomach doctor) who performed your Endoscopy (scope for your history of reflux and ulcers) within 1 month - Follow up with Dr. Fuller the Air Turning Machine Feeder (lung doctor) who performed your Bronchoscopy (scope for your shortness of breath and breathing problems) within 1 month You will be discharged with the following recommendations: - Eat soft foods and chew your food thoroughly. - Quit smoking immediately. Take Nicotine Patches to reduce cravings and continue smoking cessation - See a dentist to improve your chewing ability. You have been prescribed 2 medications on your hospital discharge: Vitamin D and Pantoprazole Vitamin D - You are given a prescription for a high dose Vitamin D pill of 50, 000 units. You are to take one pill on Thursday and one pill on Thursday for each of the next 6 weeks. After that you should take a daily vitamin D supplement of 2000IU. Pantoprazole - This medication should be taken daily. It is for heartburn. You have been given a prescription for a 30 day supply. You should follow up with your primary care provider within the next 7 days in order to get a prescription for a PPI. Current Hospital Diet Patient's current hospital diet: Regular Diet Discharge Diet Recommended Diet: Regular Diet Procedures Procedures Performed: Bronchoscopy with Bronchial Alveolar Lavage Pending Studies Studies pending at discharge: no Medical Emergencies . Who to Call and When: Medical Emergencies: If at any time you feel your situation is an emergency, please call 911 immediately. . Non-Emergent Contact Non-Emergency issues call your: Primary Care Provider . . "Provider Documentation" section prepared by Ryland Hoffman. VTE Core Measure Inpt VTE Proph given/why not?: SCD's
--- NOTE | 2016-06-18 07:27 | Discharge Summary ---
Discharge Summary Date of Service Jun 18, 2016. Discharge Summary Admission Date: Jun 12, 2016 at 17:31 Discharge Date: Jun 18, 2016 Discharge Disposition: Home Principal Diagnosis: Acute Hypoxic Respiratory Failure Problems/Secondary Diagnoses: Aspiration Pneumonia Medication Reconciliation New Medications: Ergocalciferol (Vitamin D) 50,000 Interunit Cap 62305 INTERUNIT PO WeSa@0900 for 12 Days, #12 CAP Take one pill on Thursday and take one pill on Thursday for the next 6 weeks. Pantoprazole (Pantoprazole Sodium) 40 Mg Tab 40 MG PO QAM for 30 Days, #30 TAB Discharge Exam Review of Systems: Constitutional: No chills, No fever Respiratory: + cough, No shortness of breath Cardiovascular: No chest pain, No edema Abdomen: No nausea, No pain, No vomiting Endocrine: No fatigue Physical Exam: General Appearance: WD/WN, no apparent distress Neck: supple, no carotid bruits, trachea midline Respiratory/Chest: chest non-tender, lungs clear, normal breath sounds, + decreased breath sounds (left lower lobe) Cardiovascular: regular rate, rhythm, no edema, no gallop, no murmur Abdomen / GI: normal bowel sounds, non tender, soft 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 Alejandro 2/2 duodenal ulcer. After the procedure the patient was found to be hypoxic, and with noninvasive mechanical ventilation with 100% FiO2 the patient was saturating in the 80s. The patient was subsequently intubated and placed on 100% FiO2. Bronchoscopy was was then performed and thick secretions were lavaged. The following day she was extubated without incident and then tranferred to the floor. Workup for respiratory failure was a differential of aspiration pneumonia for which she was treated with a 5 day course of Azithromycin. A pulm consult was also made to Dr. Fuller based on her questionable CT and Chest Xray results for questionable Atelectasis and LL Lobe Collapse. The patient was sent for a bronchoscopy with Dr. Fuller that showed normal anatomy of the bronchial trees bilaterally so no subsequent treatment will be required. The patients respiratory status has greatly improved and the patient will be ready for discharge. Total Time Spent: Greater than 30 minutes This includes examination of the patient, discharge planning, medication reconciliation, and communication with other providers. Discharge Instructions Please refer to the electronic Patient Visit Report (Discharge Instructions) for additional information. Additional Copies To Loyd Alicea M.D.
[2016-06-18 07:33] VITALS: BP 116/74; TEMP 36.5; O2SAT 92
[2016-06-18 07:35] VITALS: BP 116/74; PULSE 100; TEMP 36.5; O2SAT 92
--- NOTE | 2016-06-18 07:48 | Anesthesiology Progress Note ---
Anesthesia Post Op Note Date & Time Jun 18, 2016 at 07:48 Vital Signs Pain Intensity: 0.0 Vital Signs Past 12 Hours Date Time Temp Pulse Resp B/P Pulse Ox O2 Delivery O2 Flow Rate FiO2 06/18/16 07:35 36.5 100 18 92 Room Air BiPAP 06/18/16 07:33 36.5 18 116/74 92 Room Air 06/18/16 00:31 100 16 93 Room Air 06/18/16 00:30 Room Air 06/17/16 22:59 36.5 114 16 126/80 94 Room Air 06/17/16 20:40 93 Room Air 06/17/16 20:20 113 16 93 Room Air Notes Mental Status: alert / awake / arousable, participated in evaluation Pt Amnestic to Procedure: Yes Nausea / Vomiting: adequately controlled Pain: adequately controlled Airway Patency, RR, SpO2: stable & adequate BP & HR: stable & adequate Hydration State: stable & adequate Anesthetic Complications: no major complications apparent
[2016-06-18] MEDS: PANTOprazole SOD 40 MG TAB PO SCH (08:27)
[2016-06-18] MEDS: ERGOCALCIFEROL 50,000 INTER.UNIT CAP PO SCH (08:28)
[2016-06-18] MEDS: ENOXAPARIN 30 MG/0.3 ML SYR SQ SCH (08:29)
[2016-06-18] MEDS: NICOTINE 14 MG/24 HR TDSY TD SCH (08:29)
--- NOTE | 2016-06-23 10:50 | EDITING REQUIRED CODING QUERY ---
CODING QUERY To promote full compliance with coding requirements relating to patient care, provider participation is requested in all cases of client technical support associate uncertainty. Please assist us with the question(s) below: Coding Question(s): Patient admitted post EGD with acute respiratory failure. Patient emergently intubated/vented. Please document the etiology of the patient's aspiration pneumonia if known or suspected. Thank you! Elmo Suarez [facility] Physician's Response(s): Principal Diagnosis: "_that condition established after study, to be chiefly responsible for occasioning the admission of the patient to the hospital for care." Co-Existing Principal Diagnosis: "_when two or more diagnoses equally meet the criteria for principal diagnosis as determined by the circumstances of admission, diagnostic work up, and/or therapy provided, and the Alphabetic Index, Tabular List, or another coding guideline does not provide sequencing direction, any one of the diagnoses may be sequenced first." "When the physician has documented what appears to be a current diagnosis in the body of the record, but has not included the diagnosis in the final diagnostic statement, the physician should be asked whether the diagnosis should be added." (Source Coding [facility] 2 QTR90. p3-4)
== END 2016-06-18 11:39 | disposition home or self-care (01) | DRG 166 ==
LOC: ENRESERVDT → ENRESERVTM → C.GI 15:18 → C.2T 17:31 → C.MSICU 06-13 01:04 → C.MED 06-14 21:20 → C.MS2W 06-17 22:46
PROVIDERS: ADMIT Hospitalist; ATTEND Internal Medicine
PROC: 0DJ08ZZ Inspection of Upper Intestinal Tract, Via Natural or Artificial Opening Endoscopic (ICD-10-PCS; 2016-06-12)
PROC: 0BH18EZ Insertion of Endotracheal Airway into Trachea, Via Natural or Artificial Opening Endoscopic (ICD-10-PCS; principal; 2016-06-13)
PROC: 0B9J8ZX Drainage of Left Lower Lung Lobe, Via Natural or Artificial Opening Endoscopic, Diagnostic (ICD-10-PCS; 2016-06-13)
PROC: 5A1935Z Respiratory Ventilation, Less than 24 Consecutive Hours (ICD-10-PCS; 2016-06-13)
PROC: 0B9J8ZX Drainage of Left Lower Lung Lobe, Via Natural or Artificial Opening Endoscopic, Diagnostic (ICD-10-PCS; 2016-06-17)
DX: J95.821 Acute postprocedural respiratory failure (principal); J69.0 Pneumonitis due to inhalation of food and vomit; J98.11 Atelectasis; T17.990A Other foreign object in respiratory tract, part unspecified in causing asphyxiation, initial encounter; K26.9 Duodenal ulcer, unspecified as acute or chronic, without hemorrhage or perforation; F17.210 Nicotine dependence, cigarettes, uncomplicated; J47.9 Bronchiectasis, uncomplicated; M41.9 Scoliosis, unspecified; I44.7 Left bundle-branch block, unspecified; R51 Headache; J44.9 Chronic obstructive pulmonary disease, unspecified; D64.9 Anemia, unspecified; K21.9 Gastro-esophageal reflux disease without esophagitis; F12.10 Cannabis abuse, uncomplicated; Y83.8 Other surgical procedures as the cause of abnormal reaction of the patient, or of later complication, without mention of misadventure at the time of the procedure; Y92.238 Other place in hospital as the place of occurrence of the external cause

== ENCOUNTER → 2016-09-04 | Outpatient (CLI) | payer OTHER ==
[~2016-09-04] MED LIST changes: -MIDAZOLAM HCL 1 MG/ML 2ML VIAL ONE; +PRT40 PO; +VTMD PO
--- NOTE | 2016-09-05 12:10 | PULMONARY FUNCTION TEST ---
Interpretation based off ATS criteria. SPIROMETRY: Severe obstructive ventilatory disease, no significant reversibility. LUNG VOLUMES: Hyperinflation, residual volume 129%. DIFFUSION CAPACITY: Moderately reduced. INTERPRETATION: Severe obstructive ventilatory disease.
--- NOTE | 2016-09-05 12:11 | PULMONARY FUNCTION TEST ---
Interpretation based off ATS criteria. SPIROMETRY: Severe obstructive ventilatory disease, no reversibility noted. LUNG VOLUMES: Hyperinflation with elevated residual volume of 129%. DIFFUSION CAPACITY: Moderately decreased. INTERPRETATION: Severe obstructive ventilatory disease.
== END | disposition home or self-care (01) ==
LOC: C.RC 13:38
PROVIDERS: ATTEND Internal Medicine Critical Care Medicine
DX: Z72.0 Tobacco use (principal); J98.11 Atelectasis; J96.01 Acute respiratory failure with hypoxia; K22.0 Achalasia of cardia; R06.09 Other forms of dyspnea

== ENCOUNTER → 2016-09-25 | Outpatient (CLI) | payer OTHER ==
--- NOTE | 2016-09-25 09:16 | DIAGNOSTIC IMAGING REPORT ---
CT SCAN OF THE CHEST WITHOUT IV CONTRAST CLINICAL HISTORY: Dysphagia. Atelectasis. COPD. COMPARISON STUDY: Chest CT scans dated 06/16/2016 and 06/13/2016. TECHNIQUE: CT scan of the thorax was performed from the thoracic inlet to the upper abdomen. Images are reviewed in the axial, sagittal, and coronal planes. IV contrast was not administered for this examination as per the referring clinician. CT DOSE: 192.01 mGy.cm FINDINGS: Thyroid: Imaged portions of the thyroid gland are normal in size and attenuation. Thoracic aorta: The thoracic aorta is normal in caliber and demonstrates standard 3-vessel arch anatomy. Heart: The heart is top normal in size and without pericardial effusion. Lungs and pleural spaces: Mild emphysematous change is suggested. Secretions are noted within the distal trachea and the right mainstem bronchus. The trachea and central airways are otherwise clear. There are trace pleural effusions. There is significantly improved aeration of the left lower lobe as compared to studies performed May 2016. Linear atelectasis versus scarring is present lower lobes. Multifocal patchy/nodular consolidation throughout the left lung has significantly cleared from 06/16/2016. There is an 8 mm left upper lobe nodule seen on image #88, as well as a 7 mm nodule in the inferior left upper lobe seen on image #202. These were not clearly seen on 06/16/2016. A 5 mm right middle lobe nodule seen image #191 is unchanged from previous. Esophagus: The esophagus appears mildly distended and gas-filled. No obvious esophageal abnormality is identified. Mediastinum: There is no mediastinal lymphadenopathy. Elizabeth: Not well assessed without IV contrast. Axillae: There is no axillary lymphadenopathy. Upper abdomen: Partially visualized upper abdominal viscera is within normal limits. Skeletal structures: The skeletal structures appear osteopenic. No lytic or blastic bony lesions are seen. Soft tissues: The patient is cachectic. IMPRESSION: 1. Significantly improved aeration of the left lower lobe as compared to studies dated May 2016. 2. There are trace pleural effusions. Foci of linear scarring versus atelectasis are identified in the lower lobes. 3. Patchy/nodular consolidative change throughout the left lung has almost completely resolved as compared to 06/16/2016. 4. A 4 mm right middle lobe pulmonary nodule is indeterminate but of low suspicion. This is unchanged from previous. There are new nodules identified in the left upper lobe measuring up to 8 mm. These are likely on an inflammatory basis, and a 3 month follow-up examination is recommended to document resolution. 5. The esophagus appears dilated and air-filled. No obvious esophageal abnormality is identified; however, this is not well evaluated by CT. 6. There are secretions within the distal trachea and the right mainstem bronchus. These are nonspecific but may be related to aspiration. Clinical correlation will be required. Electronically signed by: Titi Guidry M.D. 09/25/2016 9:14 AM Dictated Date/Time: 09/25/2016 9:04 AM
== END | disposition home or self-care (01) ==
LOC: C.CTS 08:40
PROVIDERS: ATTEND Internal Medicine Critical Care Medicine
DX: J98.11 Atelectasis (principal); R13.10 Dysphagia, unspecified; R91.8 Other nonspecific abnormal finding of lung field

== ENCOUNTER → 2016-10-03 | Outpatient (CLI) | payer OTHER | END | disposition home or self-care (01) | LOC: C.LABSPEC 14:36 | PROVIDERS: ATTEND Physician Assistant | DX: N89.8 Other specified noninflammatory disorders of vagina (principal) ==

== ENCOUNTER → 2016-11-07 | Outpatient (CLI) | payer OTHER | END | disposition home or self-care (01) | LOC: C.PAPS 14:10 | PROVIDERS: ATTEND Obstetrics & Gynecology | DX: D06.9 Carcinoma in situ of cervix, unspecified (principal); R87.616 Satisfactory cervical smear but lacking transformation zone ==

== ENCOUNTER → 2016-11-07 | Outpatient (CLI) | payer OTHER | END | disposition home or self-care (01) | LOC: C.LABSPEC 13:26 | PROVIDERS: ATTEND Obstetrics & Gynecology | DX: N89.8 Other specified noninflammatory disorders of vagina (principal) ==

== ENCOUNTER → 2017-02-04 | Outpatient (CLI) | payer OTHER ==
--- NOTE | 2017-02-04 13:22 | DIAGNOSTIC IMAGING REPORT ---
(CHEST) THORAX WITHOUT CLINICAL HISTORY: 41 years-old Female presenting with R91.1 Pulmonary [id number] COPD, severe, new MICHELLE 8mm nodule note. TECHNIQUE: Multidetector CT imaging of the chest was performed without the use of intravenous contrast. IV contrast: None. A dose lowering technique was used consistent with the principles of ALARA (as low as reasonably achievable). COMPARISON: 09/25/2016. CT DOSE (mGy.cm): The estimated cumulative dose is 192.37 mGy.cm. 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 On soft tissue windows, normal thyroid and thoracic inlet. No axillary, supraclavicular, or mediastinal lymphadenopathy. Evaluation of the jones limited without intravenous contrast. Normal aorta. Normal heart size. No pericardial or pleural effusion. Dilated and gas and fluid-filled upper esophagus. Debris also noted in the piriform sinuses. Upper abdomen normal. On lung windows, extensive bandlike opacities at the lung bases similar to prior. Vague patchy centrilobular groundglass nodularity in the upper lobes suggested. No new nodule. Airways patent. Mild bronchial wall thickening in the lower lobes may be present. Previously noted nodules index below: -Left upper lobe solid nodule now measures 7 mm (series 4 image 78), previously 8 mm -Lingular solid nodule now measures 3 mm (series 4 image 192), previously 7 mm -Right middle lobe solid nodule now measures 4 mm (series 4 image 190), previously 5 mm On bone windows, normal osseous structures. IMPRESSION: 1. No new pulmonary nodule. Previously noted nodules are stable from prior. 2. Subtle evidence of smoking related lung injury indicated by respiratory bronchiolitis and mild bronchial wall thickening. Correlate clinically for history of smoking. In the setting of symptomatology, this could indicate respiratory bronchiolitis-interstitial lung disease. 3. Mildly dilated esophagus. Electronically signed by: Gualberto Blancas M.D. 02/04/2017 1:21 PM Dictated Date/Time: 02/04/2017 1:12 PM
== END | disposition home or self-care (01) ==
LOC: C.CTS 13:00
PROVIDERS: ATTEND Internal Medicine Critical Care Medicine
DX: J44.9 Chronic obstructive pulmonary disease, unspecified (principal); R91.1 Solitary pulmonary nodule; R91.8 Other nonspecific abnormal finding of lung field

== ENCOUNTER 2017-04-11 17:02 | Emergency (ER) | payer OTHER ==
[~2017-04-11] VITALS: Ht 162.6 cm; Wt 48.0 kg
[2017-04-11 17:04] VITALS: TEMP 36.6; Ht 162.6 cm; Wt 48.0 kg
[2017-04-11] MEDS ORDERED: ONDANSETRON INJ 2 MG/ML 2 ML VIAL IV STA (17:16)
[2017-04-11] MEDS ORDERED: MoRPHine SULFATE 4 MG/ML 1 ML CARP\\VIAL IV STA ×2 (17:16→19:07)
[2017-04-11] MEDS ORDERED: SODIUM CHLORIDE 0.9% 500ML 500 ML IV STA (17:16)
[2017-04-11] MEDS ORDERED: KETOROLAC TROMETHAMINE 30 MG/ML VIAL IV STA (17:16)
[2017-04-11] MEDS ORDERED: VNTHFA/IN INH (17:33)
[2017-04-11 17:51] LABS: BASO % 0.4 %; BASO ABS # 0.03 K/uL (0-0.2); COMPLETE YES; EOS % 0.7 %; HEMATOCRIT 39.4 % (37-47); IG% 0.2 %; LYMPH % 29.4 %; LYMPH ABS # 2.43 K/uL (1.2-3.4); MEAN CELL VOLUME 84.7 fL (80-100); MEAN PLATELET VOLUME 9.2 fL (7.4-10.4); MONO % 7.6 %; NEUT % 61.7 %; PLATELET COUNT 291 K/uL (130-400); RED BLOOD COUNT 4.65 M/uL (4.2-5.4); WHITE BLOOD COUNT 8.27 K/uL (4.8-10.8)
--- NOTE | 2017-04-11 18:06 | DIAGNOSTIC IMAGING REPORT ---
LUMBAR SPINE 5 VIEWS HISTORY: lower back pain COMPARISON: None. FINDINGS: There is no fracture. No subluxation. Mild dextroscoliosis which may be positional. Sclerosis within the bilateral sacroiliac joints, right greater the left. This remains unchanged. The sacrum appears intact. Mild facet degenerative changes seen within the lower lumbar spine. Disc spaces are preserved. IMPRESSION: No fracture or subluxation within the lumbar spine. No change from the prior study. Disc spaces are preserved. Bilateral sacroiliitis, unchanged. Electronically signed by: Aden Connolly M.D. 04/11/2017 6:05 PM Dictated Date/Time: 04/11/2017 6:03 PM
--- NOTE | 2017-04-11 18:09 | DIAGNOSTIC IMAGING REPORT ---
PELVIS 1 OR 2 VIEW ROUTINE, L FEMUR 2 VIEWS ROUTINE CLINICAL HISTORY: Left hip pain. Left leg pain. COMPARISON STUDY: None. FINDINGS: No fracture or dislocation within the pelvis, hips, or left femur. Cartilage spaces within the hips are maintained for age. The sacrum is intact.] Bilateral sacroiliitis, right greater than left. Soft tissues are unremarkable. IMPRESSION: 1. No fracture or dislocation within the pelvis, hips, left femur. 2. Bilateral sacroiliitis, right greater than left. Electronically signed by: Aden Connolly M.D. 04/11/2017 6:07 PM Dictated Date/Time: 04/11/2017 6:05 PM
[2017-04-11 18:11] LABS: ALT/SGPT 21 U/L (12-78); BLOOD UREA NITROGEN 4 mg/dl (7-18); BUN/CREATININE RATIO 7.3 (10-20); CALCIUM 9.5 mg/dl (8.5-10.1); CARBON DIOXIDE 27 mmol/L (21-32); CHLORIDE 101 mmol/L (98-107); CREATININE 0.49 mg/dl (0.60-1.20); GLUCOSE 101 mg/dl (70-99); SODIUM 135 mmol/L (136-145)
[2017-04-11 18:14] LABS: ALKALINE PHOSPHATASE 232 U/L (45-117); AST/SGOT 17 U/L (15-37)
[2017-04-11 18:50] LABS: MANUAL MICROSCOPIC REQUIRED? NO; REVIEW REQ? NO; URINE APPEARANCE CLOUDY (CLEAR); URINE BILIRUBIN NEG (NEG); URINE COLOR YELLOW; URINE EPITHELIAL CELL AUTO >30 /lpf (0-5); URINE NITRITE POS (NEG); URINE SPECIFIC GRAVITY 1.015 (1.000-1.030); UROBILINOGEN NEG (NEG); ZZUR CULT IF INDIC CLEAN CATCH YES
[2017-04-11] MEDS ORDERED: PRED20TA PO (19:08)
[2017-04-11] MEDS ORDERED: MoRPHine SULFATE 2 MG/ML CARP ONE (19:13)
[2017-04-11 19:19] VITALS: BP 114/59; PULSE 100; O2SAT 96
--- NOTE | 2017-04-13 17:28 | EMERGENCY ROOM VISIT NOTE ---
History Report prepared by Zuhair: Danielito Romero Under the Supervision of: Dr. Leonard Linton D.O. First contact with patient: 17:07 Chief Complaint: LEG PAIN,LEG INJURY Stated Complaint: SEVERE MUSCLE PAIN,SPASMS LEFT LEG History of Present Illness The patient is a 41 year old female who presents to the Emergency Room with complaints of constant left leg pain for the past 2 days. She states that it feels like a cramping, and she is unable to put weight on it. The patient states that she has had similar in the past with just cramping, though it has never been this bad before. She states that the pain does not go below her knee. The patient additionally reports that she is having some lower back pain. She denies any numbness in her groin or difficulty with bowel movements and urination. The patient additionally denies any recent falls, trauma, drug, use, and alcohol use. The patient additionally notes that she currently has a vaginal infection currently. Pt denies headache, change in vision, fevers, chest pain, shortness of breath, nausea, vomiting, diarrhea, pain with urination , and melena. Source of History: patient Onset: 2 days ago Position: leg (left) Quality: other (cramping) Timing: constant Associated Symptoms: + back pain, No urinary symptoms Review of Systems See HPI for pertinent positives & negatives. A total of 10 systems reviewed and were otherwise negative. Past Medical & Surgical Medical Problems: (1) Acute respiratory failure with hypoxia (2) Acute respiratory insufficiency, postoperative (3) Arthritis (4) Atelectasis of left lung (5) Marijuana smoker (6) Scoliosis (7) Tobacco abuse Surgical Problems: (1) History of esophagogastroduodenoscopy (EGD) Family History Heart disease Social History Smoking Status: Current Every Day Smoker Alcohol Use: none Drug Use: none Marital Status: in relationship Housing Status: lives with family Occupation Status: unemployed Current/Historical Medications Scheduled Prednisone (Prednisone), 1 TAB PO DAILY Scheduled PRN Albuterol Hfa (Ventolin Hfa), 2 PUFFS INH QID PRN for SOB/Wheezing Allergies Coded Allergies: No Known Allergies (Verified , 03/21/16) Physical Exam Vital Signs Date Time Temp Pulse Resp B/P (MAP) Pulse Ox O2 Delivery O2 Flow Rate FiO2 04/11/17 19:19 100 16 114/59 96 Room Air 04/11/17 17:04 36.6 119 16 113/79 95 Room Air Physical Exam GENERAL: Sitting up in bed, holding left leg in flexion, mild distress, non- toxic EYE EXAM: normal conjunctiva. OROPHARYNX: no exudate, no erythema, lips, buccal mucosa, and tongue normal and mucous membranes are moist NECK: supple, no nuchal rigidity, no adenopathy, non-tender LUNGS: Clear to auscultation. Normal chest wall mechanics HEART: no murmurs, S1 normal and S2 normal ABDOMEN: abdomen soft, non-tender, normo-active bowel sounds, no masses, no rebound or guarding. BACK: Minimal tenderness of the left SI joint tracking through the left trochanteric bursa and left proximal femur with tenderness to palpation. SKIN: no rashes and no bruising UPPER EXTREMITIES: upper extremities are grossly normal. LOWER EXTREMITIES: Flexion and extension of hip, knee, ankle, and EHL intact bilaterally 5/5. Patellar and Achilles reflex are 2/4. DP and femoral pulses are 2/4. Gross sensations intact. Moderate pain with extension of the left femur. NEURO EXAM: Normal sensorium, cranial nerves II-XII grossly intact, normal speech, no gross weakness of arms. Medical Decision & Procedures ER Provider Diagnostic Interpretation: Radiology results as stated below per my review and the radiologist's interpretation: PELVIS 1 OR 2 VIEW ROUTINE, L FEMUR 2 VIEWS ROUTINE CLINICAL HISTORY: Left hip pain. Left leg pain. COMPARISON STUDY: None. FINDINGS: No fracture or dislocation within the pelvis, hips, or left femur. Cartilage spaces within the hips are maintained for age. The sacrum is intact.] Bilateral sacroiliitis, right greater than left. Soft tissues are unremarkable. IMPRESSION: 1. No fracture or dislocation within the pelvis, hips, left femur. 2. Bilateral sacroiliitis, right greater than left. Electronically signed by: Aden Connolly M.D. 04/11/2017 6:07 PM Dictated Date/Time: 04/11/2017 6:05 PM LUMBAR SPINE 5 VIEWS HISTORY: lower back pain COMPARISON: None. FINDINGS: There is no fracture. No subluxation. Mild dextroscoliosis which may be positional. Sclerosis within the bilateral sacroiliac joints, right greater the left. This remains unchanged. The sacrum appears intact. Mild facet degenerative changes seen within the lower lumbar spine. Disc spaces are preserved. IMPRESSION: No fracture or subluxation within the lumbar spine. No change from the prior study. Disc spaces are preserved. Bilateral sacroiliitis, unchanged. Electronically signed by: Aden Connolly M.D. 04/11/2017 6:05 PM Dictated Date/Time: 04/11/2017 6:03 PM PELVIS 1 OR 2 VIEW ROUTINE, L FEMUR 2 VIEWS ROUTINE CLINICAL HISTORY: Left hip pain. Left leg pain. COMPARISON STUDY: None. FINDINGS: No fracture or dislocation within the pelvis, hips, or left femur. Cartilage spaces within the hips are maintained for age. The sacrum is intact.] Bilateral sacroiliitis, right greater than left. Soft tissues are unremarkable. IMPRESSION: 1. No fracture or dislocation within the pelvis, hips, left femur. 2. Bilateral sacroiliitis, right greater than left. Electronically signed by: Aden Connolly M.D. 04/11/2017 6:07 PM Dictated Date/Time: 04/11/2017 6:05 PM Laboratory Results 04/11/17 17:25 Red Blood Count 4.65, Mean Corpuscular Volume 84.7, Mean Corpuscular Hemoglobin 28.0, Mean Corpuscular Hemoglobin Concent 33.0, Mean Platelet Volume 9.2, Neutrophils (%) (Auto) 61.7, Lymphocytes (%) (Auto) 29.4, Monocytes (%) (Auto) 7.6, Eosinophils (%) (Auto) 0.7, Basophils (%) (Auto) 0.4, Neutrophils # (Auto) 5.10, Lymphocytes # (Auto) 2.43, Monocytes # (Auto) 0.63, Eosinophils # (Auto) 0.06, Basophils # (Auto) 0.03 04/11/17 17:25 Test 04/11/17 17:25 04/11/17 18:00 White Blood Count 8.27 K/uL (4.8-10.8) Red Blood Count 4.65 M/uL (4.2-5.4) Hemoglobin 13.0 g/dL (12.0-16.0) Hematocrit 39.4 % (37-47) Mean Corpuscular Volume 84.7 fL (80-100) Mean Corpuscular Hemoglobin 28.0 pg (25-34) Mean Corpuscular Hemoglobin Concent 33.0 g/dl (32-36) Platelet Count 291 K/uL (130-400) Mean Platelet Volume 9.2 fL (7.4-10.4) Neutrophils (%) (Auto) 61.7 % Lymphocytes (%) (Auto) 29.4 % Monocytes (%) (Auto) 7.6 % Eosinophils (%) (Auto) 0.7 % Basophils (%) (Auto) 0.4 % Neutrophils # (Auto) 5.10 K/uL (1.4-6.5) Lymphocytes # (Auto) 2.43 K/uL (1.2-3.4) Monocytes # (Auto) 0.63 K/uL (0.11-0.59) Eosinophils # (Auto) 0.06 K/uL (0-0.5) Basophils # (Auto) 0.03 K/uL (0-0.2) RDW Standard Deviation 46.7 fL (36.4-46.3) RDW Coefficient of Variation 15.3 % (11.5-14.5) Immature Granulocyte % (Auto) 0.2 % Immature Granulocyte # (Auto) 0.02 K/uL (0.00-0.02) Anion Gap 7.0 mmol/L (3-11) Est Creatinine Clear Calc Drug Dose 114.5 ml/min Estimated GFR () 140.3 Estimated GFR (Non- 121.0 BUN/Creatinine Ratio 7.3 (10-20) Calcium Level 9.5 mg/dl (8.5-10.1) Total Bilirubin 0.4 mg/dl (0.2-1) Direct Bilirubin < 0.1 mg/dl (0-0.2) Aspartate Amino Transf (AST/SGOT) 17 U/L (15-37) Alanine Aminotransferase (ALT/SGPT) 21 U/L (12-78) Alkaline Phosphatase 232 U/L (45-117) Total Protein 7.5 gm/dl (6.4-8.2) Albumin 3.2 gm/dl (3.4-5.0) Lipase 65 U/L (73-393) Urine Color YELLOW Urine Appearance CLOUDY (CLEAR) Urine pH 5.0 (4.5-7.5) Urine Specific Jacobson 1.015 (1.000-1.030) Urine Protein NEG (NEG) Urine Glucose (UA) NEG (NEG) Urine Ketones NEG (NEG) Urine Occult Blood NEG (NEG) Urine Nitrite POS (NEG) Urine Bilirubin NEG (NEG) Urine Urobilinogen NEG (NEG) Urine Leukocyte Esterase SMALL (NEG) Urine WBC (Auto) 5-10 /hpf (0-5) Urine RBC (Auto) 0-4 /hpf (0-4) Urine Hyaline Casts (Auto) 1-5 /lpf (0-5) Urine Epithelial Cells (Auto) >30 /lpf (0-5) Urine Bacteria (Auto) 2+ (NEG) Urine Test NEG (NEG) Date/Time Source Procedure Growth Status 04/11/17 18:00 Urine , Clean Catch Urine Culture - Final MORE THAN THREE TYPES OF ORGANISMS NH... Complete Laboratory results per my review. Medications Administered Medications (Trade) Dose Ordered Sig/Oscar Route Start Time Stop Time Status Last Admin Dose Admin Sodium Chloride 500 ml @ 999 mls/hr Q31M STAT IV 04/11/17 17:16 04/11/17 17:46 DC 04/11/17 17:16 999 MLS/HR Morphine Sulfate (MoRPHine SULFATE INJ) 4 mg NOW STAT IV 04/11/17 17:16 04/11/17 17:18 DC 04/11/17 17:25 4 MG Ketorolac Tromethamine (Toradol Inj) 30 mg NOW STAT IV 04/11/17 17:16 04/11/17 17:18 DC 04/11/17 17:26 30 MG Ondansetron HCl (Zofran Inj) 4 mg NOW STAT IV 04/11/17 17:16 04/11/17 17:18 DC 04/11/17 17:25 4 MG Morphine Sulfate (MoRPHine SULFATE INJ) 2 mg STK-MED ONCE .ROUTE 04/11/17 19:13 04/11/17 19:14 DC 04/11/17 19:15 2 MG ED Course ED COURSE: Vital signs were reviewed and showed tachycardia The patients medical record was reviewed The above diagnostic studies were performed and reviewed. ED treatments and interventions as stated above. 1707: The patient was evaluated in room A11. A complete history and physical examination was performed. 1716: Zofran 4mg IV, Toradol 30mg IV, Morphine Sulfate 4mg IV, Sodium Chloride 500 ml @ 999 mls/hr IV 1906: Upon reevaluation, the patient is doing well and feeling better.I discussed my findings with the patient and she understands and agrees with the treatment plan. Based on the patients age, coexisting illnesses, exam and lab findings the decision to treat as an outpatient was made. The patient remained stable while under my care. The patient appeared well at the time of discharge. 1906: Morphine Sulfate 2mg IV Medical Decision Differential diagnosis: Etiologies such as fracture, dislocation, neurovascular compromise, compartment syndrome, soft tissue injury, as well as others were entertained. Patient is a 41-year-old female who presents to ER for left lower extremity cramping. Pain radiates to left gluteus. It is reproducible in nature. She has full range of motion of her left lower extremity. She does hold the left hip in flexion. CBC was unremarkable along with BMP, LFTs, bilirubin and lipase. UA was contaminated without urinary symptoms. was negative. Patient was given 2 doses of IV narcotics. She felt significant better. I do favor this is partially a radiculopathy and a trochanteric bursitis. She was discharged with steroids and instructed to follow-up with PCP. Nothing to suggest cauda equina. No fevers. No signs of septic joint. Medication Reconcilliation Current Medication List: was personally reviewed by me Blood Pressure Screening Patient's blood pressure: Normal blood pressure Impression Primary Impression: Cramps of left lower extremity Additional Impression: Trochanteric bursitis Scribe Attestation The scribe's documentation has been prepared under my direction and personally reviewed by me in its entirety. I confirm that the note above accurately reflects all work, treatment, procedures, and medical decision making performed by me. Departure Information Dispostion Home / Self-Care Prescriptions Prednisone (Prednisone) 20 Mg Tab 1 TAB PO DAILY for 3 Days, #3 TAB Prov: Leonard Linton, DO 04/11/17 Referrals Loyd Alicea M.D. (PCP) Forms HOME CARE DOCUMENTATION FORM, IMPORTANT VISIT INFORMATION Patient Instructions ED Bursitis, ED Muscle Pain Leg Cramps, My [facility] Additional Instructions Please follow up with your primary care doctor or if you are a student, [facility] with in the next 24 hours. Any worsening of your symptoms, please return to the ED immediately. This includes any fevers greater than 100.4, worsening pain, chest pain, shortness breath, persistent nausea, vomiting, unable to eat or drink, or any other concerning signs or symptoms from your standpoint. You were given medications during this visit that will inhibit your ability to drive, operate machinery and work. Please do NOT drive, operate machinery, drink alcohol or work for the next 12hrs. Please take Tylenol or Motrin as needed for pain in combination with the steroids. Problem Qualifiers Additional Impression: Trochanteric bursitis Laterality: left Qualified Codes: M70.62 - Trochanteric bursitis, left hip
== END 2017-04-11 20:09 | disposition home or self-care (01) ==
LOC: C.EDB 17:03 → C.EDA 20:09
DX: R25.2 Cramp and spasm (principal); M70.62 Trochanteric bursitis, left hip; M19.90 Unspecified osteoarthritis, unspecified site; M41.9 Scoliosis, unspecified; F17.200 Nicotine dependence, unspecified, uncomplicated; Z82.49 Family history of ischemic heart disease and other diseases of the circulatory system

== ENCOUNTER → 2017-06-22 | Outpatient (CLI) | payer OTHER ==
[~2017-06-22] MED LIST changes: -PRT40 PO; +VNTHFA/IN INH; -VTMD PO
--- NOTE | 2017-06-22 13:11 | DIAGNOSTIC IMAGING REPORT ---
CT OF THE CHEST WITHOUT IV CONTRAST CLINICAL HISTORY: Pulmonary nodule. Atelectasis. Bronchiectasis with acute exacerbation. COMPARISON STUDY: Chest CT June 13, 2016 and February 04, 2017. CT DOSE: 154.56 mGycm TECHNIQUE: Axial images of the chest were obtained without IV contrast. Images were reviewed in the axial, sagittal, and coronal planes. IV contrast was not administered for this examination. A dose lowering technique was utilized adhering to the principles of ALARA. FINDINGS: No enlarged axillary, mediastinal or hilar lymph nodes are present. The size the heart is normal. There is no pericardial effusion. Moderate esophageal dilatation is unchanged. Linear bilateral lower lobe and lingular opacities are unchanged and favor atelectasis. A 5 mm left upper lobe nodule shown on image 69 of 290 has decreased in size since CT of February 04, 2017. Therefore, this is benign. A 5 mm right middle lobe nodule shown on image 188 and a 4 mm lingular nodule shown image 190 are unchanged. There are no new nodules. A small amount of secretions within the trachea is noted as well as bilateral lower lobe segmental bronchi. There is bronchial wall thickening. This is unchanged. No central obstructing mass is noted. There is no pneumothorax or pleural effusion. Bony thorax and upper abdomen are unremarkable. IMPRESSION: 1. No acute intrathoracic findings. 2. Interval decrease in size of the left upper lobe nodule, now measuring 5 mm. Therefore, this is benign. 3. Remainder of the pulmonary nodules are unchanged. These are likely benign but a follow-up chest CT in one year to ensure stability is recommended. 4. Bilateral lower lobe and lingular opacities which are similar to prior exam and favor atelectasis. Multifocal secretions throughout the tracheobronchial tree which are similar to prior study. Electronically signed by: Babatunde Back M.D. 06/22/2017 1:10 PM Dictated Date/Time: 06/22/2017 12:59 PM
== END | disposition home or self-care (01) ==
LOC: C.CTS 12:13
PROVIDERS: ATTEND Internal Medicine Critical Care Medicine
DX: F12.20 Cannabis dependence, uncomplicated (principal); F17.200 Nicotine dependence, unspecified, uncomplicated; J47.1 Bronchiectasis with (acute) exacerbation; J98.11 Atelectasis; R91.1 Solitary pulmonary nodule

== ENCOUNTER 2019-04-17 14:38 | Inpatient (IN) ==
[2019-04-17] MEDS ORDERED: ALBUT/IPRATROP 3MG/0.5MG NEB 3 ML VIAL NEB ONE (15:00)
[2019-04-17] MEDS ORDERED: methylPREDNISolone 125 MG/2 ML VIAL IV STA (15:00)
--- NOTE | 2019-04-17 15:21 | XRay Report ---
XR chest 1V portable CLINICAL HISTORY: Hypoxia. Shortness of breath. COMPARISON STUDY: Chest CT June 11, 2018. FINDINGS: There is no pneumothorax or pleural effusion. There is no evidence for pulmonary edema. Car diac size is normal. Mediastinal contours are normal. Left basilar opacity is noted. This is increase d when compared to prior exams. There is minimal right basilar opacity. IMPRESSION: Mild bibasilar opacities, greater on the left. The findings could reflect pneumonia or a telectasis. Radiographic follow-up is recommended to ensure resolution. ACT 112: Negative or not required by law. Electronically signed by: Babatunde Back M.D. 04/17/2019 3:19 PM
[2019-04-17 15:33] LABS: Basophils # (auto) 0.04 K/uL (0-0.2); Basophils % (auto) 0.3 %; Eosinophils # (auto) 0.26 K/uL (0-0.5); Hematocrit (blood only) 40.9 % (37-47); Immature Granulocytes # (auto) 0.03 K/uL (0.00-0.02); Immature Granulocytes % (auto) 0.2 %; Lymphocytes # (auto) 2.63 K/uL (1.2-3.4); Lymphocytes % (auto) 19.7 %; Mean Corpuscular Hgb Conc 31.8 g/dL (32-36); Mean Platelet Volume 9.1 fL (7.4-10.4); Monocytes # (auto) 0.63 K/uL (0.11-0.59); Monocytes % (auto) 4.7 %; Neutrophils # (auto) 9.74 K/uL (1.4-6.5); Neutrophils % (auto) 73.1 %; Platelet Count 370 K/uL (130-400); RDW Coefficient of Variation 14.6 % (11.5-14.5); RDW Standard Deviation 46.8 fL (36.4-46.3); Red Blood Count 4.65 M/uL (4.2-5.4); White Blood Count 13.33 K/uL (4.8-10.8)
[2019-04-17 15:38] LABS: Base Excess VBG 3.6 mEq/L; Oxygen Saturation VBG 86.5 %; pH VBG 7.39 (7.36-7.41)
[2019-04-17 15:50] LABS: Anion Gap 0 (3-11); BUN Creatinine Ratio 15.1 (10-20); Blood Urea Nitrogen 6 mg/dl (7-18); Calcium 9.6 mg/dl (8.5-10.1); Carbon Dioxide 32 mmol/L (21-32); Chloride 105 mmol/L (98-107); Creatinine Clr Calc Pharmacy 110.4 ml/min; Est GFR (African American) 145.5; Est GFR (Non-African American) 125.5; Glucose 109 mg/dl (70-99); Magnesium 2.3 mg/dl (1.8-2.4); Potassium 3.8 mmol/L (3.5-5.1); Sodium 137 mmol/L (136-145)
[2019-04-17 15:55] LABS: Troponin I < 0.015 ng/ml (0-0.045)
[2019-04-17] MEDS ORDERED: AZITHROMYCIN 500 MG in DEXTROSE 5% 250 ML IV ONE (16:24)
[2019-04-17] MEDS ORDERED: cefTRIAXone SODIUM 1,000 MG/50 ML BAG IV STA (16:24)
[2019-04-17] MEDS ORDERED: ACETAMINOPHEN 500 MG TAB PO STA (16:58)
--- NOTE | 2019-04-17 18:17 | Emergency Department Note ---
Entered by Yolie Jorgensen acting as a scribe for Ricky Wilde MD ED Provider Note Name: IAN RENDON Age: 43 Arrives Via: Ambulance Informant: Patient CC: Respiratory problems HPI: 43F arrives for evaluation of respiratory problems. She has a history of COPD and states today her breathing worsened. She is a current smoker. She has been using her inhaler with minimal relief. She denies any abdominal pain. She does complain of neck pain. She denies any recent leg swelling. She denies any recent falls or trauma. No recent antibiotics. No medications prior to arrival. ROS: See above HPI for pertinent positives & negatives. A total of 10 systems reviewed and were otherwise negative. Past Medical History:COPD, Depression, Anxiety, Arthritis Past Surgical History:EGD Family History:See Below Social History:See Below Home Medications:See Below Allergies:See Below Vitals:BP is 112/78. Pulse is 105. Respirations are 20. Temperature is 98.2. O2 Saturation is 86 via NC. Physical Exam: GENERAL: Patient is cachectic and severely unwell appearing. EYES: No scleral icterus, unremarkable pupils. ENT: Mucous membranes moist, no nasal congestion. NECK: No masses appreciated, nomeningismus, trachea is midline. RESPIRATORY: Patient is dyspneic and tachypneic. Tight lung sounds with diffuse wheezing. CARDIOVASCULAR: Tachycardic heart rate and rhythm.No murmurs, rubs, gallops appreciated. GASTROINTESTINAL: Abdomen soft, non-tender, no peritonitis.Bowel sounds positive.No masses appreciated. BACK: No midline tenderness, no CVA tenderness EXTREMITIES: Normal motion all extremities, no cyanosis, no edema. NEUROLOGIC: Alert and oriented, no acute motor or sensory deficits, no focal weakness, cranial nerves grossly intact. SKIN: No rash, no jaundice, no diaphoresis. ED Course: Prior Medical Record, Triage/Nursing Notes, Medications, Allergies reviewed by Me Vital Signs: reviewed and remarkable for no significant abnormalities Labs:Reviewed and remarkable for no significant abnormalities Interventions: Saline lock, duoneb x 1 hour, solumedrol, rocephin IV, azithromycin IV Imaging:See Below Consults:3354: I discussed the patients case with Dr. Clancy, [facility]ist. The patient will be further evaluated. Reassessments/Times: 1457: The patient was evaluated in room B11. A complete history and physical were performed. 1600: I reevaluated the patient. She is asking to go home but is willing to wait until her breathing treatment is finished. 1620: I reevaluated the patient. She is off the breathing treatment and her O2 dropped to 85%. She is agreeable to a hospital evaluation. 1625: I discussed the patients case with Dr. Clancy, [facility] Hospitalist. The patient will be further evaluated. Blood pressure:Normal.No Referral necessary Disposition:Hospitalization. Differentials: Infectious, Reactive Airway Disease, Pneumonia, Pneumothorax, COPD, CHF, ACS, Pulmonary Embolism, MSK, GI, Dissection, amongst other etiologies entertained. Medical Decision Makin yr old severe copd patient with continued smoking arrives in hypoxic acute respiratory distress. Ill appearing on exam with significant respiratory d istress. Given hour neb and steroids. Labs and venous blood gas OK. CXR questionable pneumonia bilateral bases in setting of severe emphysema. Even after hour neb she continues to have very poor lung sounds and hypoxia and is requiring 4L NC O2 to keep her even at 90% O2 sats. She does not have evidence ACS and with history PE unlikely. She does not appear septic but will be treated with dual abx therapy for this. Hospitalist consulted for management. Impression: Hypoxia COPD with exacerbation Critical Care Time: I have personally spent greater than 30 minutes of critical care time in the direct management of this patient. Hypoxic Respiratory Distress prolonged nebs and management. This was a life/limb threatening event. This includes time spent evaluating patient, direct bedside care, chart review, placing orders, interpretation of diagnostic studies, discussion with consultants, patient, and family members, as well as other required patient management activities. This 30 minutes is in excess of all separately billable procedures. The scribe's documentation has been prepared under my direction and personally reviewed by me in its entirety. I confirm that the note above accurately reflects all work, treatment, procedures, and medical decision making performed by me. Ricky Wilde MD Impression & Plan Hypoxia, COPD exacerbation Past Med/Surg History Medical History Anxiety (Chronic) Arthritis (Chronic) Constipation (Chronic) COPD (chronic obstructive pulmonary disease) (Chronic) Depression (Chronic) Difficulty chewing (Resolved) Difficulty swallowing (Resolved) Marijuana smoker (Chronic) Ovarian cyst (Resolved) Poor dentition (Chronic) Scoliosis (Chronic) Tobacco abuse (Chronic) Surgical History History of esophagogastroduodenoscopy (EGD) (Resolved) Family History Other Family history non-contributory Social History Preferred Language: Irish Communication Ability: Effective P D Driver Required: No Beliefs That Will Affect Care: None marital status: Single Current Living Situation: Family Feels Safe at Home: Yes Smoking Status: Current every day smoker Tobacco Type: cigarettes ; Cigarettes Per Day: 1 PACK/DAY ; Second Hand Exposure: Yes ; Hx Alcohol Use: No Hx Substance Use: No Results & Data Vital Signs Vital Signs - 24 hr 04/17/19 14:40 04/17/19 15:14 04/17/19 15:25 Temperature 36.8 C Temperature Source Oral Pulse Rate 104 H Pulse Rate [Left Finger] 106 H 105 H Pulse Rhythm [Left Finger] Regular Respiratory Rate 25 H 18 20 Respiratory Effort / Characteristics Non-Labored Non-Labored Spontaneous Non-Labored Respiratory Depth Normal Normal Respiratory Pattern Regular Regular Blood Pressure 109/75 Blood Pressure [Left Arm] 112/78 Blood Pressure Mean 86 Blood Pressure Mean [Left Arm] 89 Pulse Oximetry 94 92 93 Oxygen Delivery Method Nasal Cannula Nasal Cannula Nasal Cannula Oxygen Flow Rate 4 3 4 Sepsis Recent Fever Within 48 Hours No Sepsis New/Unexplained Change in Mental Status No Sepsis Action Taken by Nursing No Action Required Oxygen Flow Rate - Titration 04/17/19 16:19 04/17/19 16:20 04/17/19 16:38 Temperature Temperature Source Pulse Rate Pulse Rate [Left Finger] 119 H Pulse Rhythm [Left Finger] Respiratory Rate 25 H Respiratory Effort / Characteristics Non-Labored Respiratory Depth Normal Respiratory Pattern Regular Blood Pressure Blood Pressure [Left Arm] 109/71 Blood Pressure Mean Blood Pressure Mean [Left Arm] 83 Pulse Oximetry 86 L 86 L 90 Oxygen Delivery Method Room Air Nasal Cannula Nasal Cannula Oxygen Flow Rate 4 Sepsis Recent Fever Within 48 Hours Sepsis New/Unexplained Change in Mental Status Sepsis Action Taken by Nursing Oxygen Flow Rate - Titration 4 04/17/19 17:48 Temperature Temperature Source Pulse Rate Pulse Rate [Left Finger] 110 H Pulse Rhythm [Left Finger] Respiratory Rate 22 Respiratory Effort / Characteristics Non-Labored Respiratory Depth Normal Respiratory Pattern Regular Blood Pressure Blood Pressure [Left Arm] 112/83 Blood Pressure Mean Blood Pressure Mean [Left Arm] 92 Pulse Oximetry 92 Oxygen Delivery Method Room Air Oxygen Flow Rate Sepsis Recent Fever Within 48 Hours Sepsis New/Unexplained Change in Mental Status Sepsis Action Taken by Nursing Oxygen Flow Rate - Titration Home Medications Current Medication List: was personally reviewed by me Laboratory Data Attestation: I reviewed the patient's lab results. Result diagrams: 04/18/19 06:17 04/18/19 06:17 Lab Results 04/17/19 04/17/19 04/17/19 Range/Units 15:22 15:22 15:22 WBC 13.33 H (4.8-10.8) K/uL RBC 4.65 (4.2-5.4) M/uL Hgb 13.0 (12.0-16.0) g/dL Hct 40.9 (37-47) % MCV 88.0 (80-100) fL MCH 28.0 (25-34) pg MCHC 31.8 L (32-36) g/dL RDW Std Deviation 46.8 H (36.4-46.3) fL RDW Coeff of Abhishek 14.6 H (11.5-14.5) % Plt Count 370 (130-400) K/uL MPV 9.1 (7.4-10.4) fL Immature Gran % (Auto) 0.2 % Neut % (Auto) 73.1 % Lymph % (Auto) 19.7 % [place] % (Auto) 4.7 % Eos % (Auto) 2.0 % Baso % (Auto) 0.3 % Immature Gran # (Auto) 0.03 H (0.00-0.02) K/uL Neut # (Auto) 9.74 H (1.4-6.5) K/uL Lymph # (Auto) 2.63 (1.2-3.4) K/uL [place] # (Auto) 0.63 H (0.11-0.59) K/uL Eos # (Auto) 0.26 (0-0.5) K/uL Baso # (Auto) 0.04 (0-0.2) K/uL VBG pH 7.39 (7.36-7.41) VBG pCO2 49 (38-50) mmHg VBG pO2 52 mmHg VBG HCO3 29 mmol/L VBG O2 Saturation 86.5 % VBG Base Excess 3.6 mEq/L Barometric Pressure 737.9 mm/Hg Sodium 137 (136-145) mmol/L Potassium 3.8 (3.5-5.1) mmol/L Chloride 105 (98-107) mmol/L Carbon Dioxide 32 (21-32) mmol/L Anion Gap 0 L (3-11) BUN 6 L (7-18) mg/dl Creatinine 0.42 L (0.6-1.2) mg/dl Est Cr Clr Drug Dosing 110.4 ml/min Est GFR ( Amer) 145.5 Est GFR (Non-Af Amer) 125.5 BUN/Creatinine Ratio 15.1 (10-20) Glucose 109 H (70-99) mg/dl Calcium 9.6 (8.5-10.1) mg/dl Magnesium 2.3 (1.8-2.4) mg/dl Troponin I < 0.015 (0-0.045) ng/ml NT-Pro-B Natriuret Pep 184 (0-450) pg/ml Procalcitonin (0-0.5) ng/ml TSH 1.520 (0.300-4.500) uIu/ml 04/17/19 04/17/19 Range/Units 15:22 15:22 WBC (4.8-10.8) K/uL RBC (4.2-5.4) M/uL Hgb (12.0-16.0) g/dL Hct (37-47) % MCV (80-100) fL MCH (25-34) pg MCHC (32-36) g/dL RDW Std Deviation (36.4-46.3) fL RDW Coeff of Abhishek (11.5-14.5) % Plt Count (130-400) K/uL MPV (7.4-10.4) fL Immature Gran % (Auto) % Neut % (Auto) % Lymph % (Auto) % [place] % (Auto) % Eos % (Auto) % Baso % (Auto) % Immature Gran # (Auto) (0.00-0.02) K/uL Neut # (Auto) (1.4-6.5) K/uL Lymph # (Auto) (1.2-3.4) K/uL [place] # (Auto) (0.11-0.59) K/uL Eos # (Auto) (0-0.5) K/uL Baso # (Auto) (0-0.2) K/uL VBG pH (7.36-7.41) VBG pCO2 (38-50) mmHg VBG pO2 mmHg VBG HCO3 mmol/L VBG O2 Saturation % VBG Base Excess mEq/L Barometric Pressure mm/Hg Sodium (136-145) mmol/L Potassium (3.5-5.1) mmol/L Chloride (98-107) mmol/L Carbon Dioxide (21-32) mmol/L Anion Gap (3-11) BUN (7-18) mg/dl Creatinine (0.6-1.2) mg/dl Est Cr Clr Drug Dosing ml/min Est GFR ( Amer) Est GFR (Non-Af Amer) BUN/Creatinine Ratio (10-20) Glucose (70-99) mg/dl Calcium (8.5-10.1) mg/dl Magnesium (1.8-2.4) mg/dl Troponin I (0-0.045) ng/ml NT-Pro-B Natriuret Pep (0-450) pg/ml Procalcitonin 0.07 (0-0.5) ng/ml TSH Cancelled (0.300-4.500) uIu/ml Administered Medications Albuterol (Duoneb) 3 ml NEB Q4R SARITA Stop: 05/17/19 22:59 Last Admin: 04/18/19 15:09 Dose: 3 ml Documented by: [id number] Admin: 04/18/19 11:07 Dose: 3 ml Documented by: [id number] Admin: 04/18/19 07:13 Dose: 3 ml Documented by: [id number] Admin: 04/18/19 03:23 Dose: 3 ml Documented by: [id number] Admin: 04/17/19 23:11 Dose: 3 ml Documented by: [id number] Azithromycin (Zithromax) 250 mg PO QAM SARITA Stop: 04/25/19 08:59 Last Admin: 04/18/19 08:57 Dose: 250 mg Documented by: [id number] Bupropion HCl (Wellbutrin-Sr) 150 mg PO DAILY SARITA Stop: 05/18/19 10:59 Last Admin: 04/18/19 11:44 Dose: 150 mg Documented by: [id number] Enoxaparin Sodium (Lovenox) 40 mg SQ QAM SARITA Stop: 05/18/19 08:59 Last Admin: 04/18/19 08:56 Dose: 40 mg Documented by: [id number] Sodium Chloride (Nss 1000ml) 1,000 mls @ 80 mls/hr IV .[id number] SARITA Stop: 05/17/19 19:53 Last Admin: 04/18/19 08:55 Dose: 80 mls/hr Documented by: [id number] Infusion: 04/18/19 08:48 Dose: 80 mls/hr Documented by: [id number] Admin: 04/17/19 20:18 Dose: 80 mls/hr Documented by: [id number] Ceftriaxone Sodium 1,000 mg/ (Dextrose) 60 mls @ 100 mls/hr IV DAILY [facility]; Protocol Stop: 04/24/19 08:59 Last Infusion: 04/18/19 10:04 Dose: 0 mls/hr Documented by: [id number] Admin: 04/18/19 08:55 Dose: 100 mls/hr Documented by: [id number] Methylprednisolone 40 mg/ (Syringe) 0.64 mls @ 1.5 mls/min IV BID SARITA Stop: 05/17/19 20:59 Last Admin: 04/18/19 08:55 Dose: 1.5 mls/min Documented by: [id number] Admin: 04/17/19 20:57 Dose: 1.5 mls/min Documented by: [id number] Nicotine (Nicoderm Cq) 21 mg TD HS SARITA Stop: 05/17/19 20:59 Last Admin: 04/17/19 20:58 Dose: 21 mg Documented by: [id number] Tiotropium [place] (Spiriva) 1 puffs INH QAM SARITA Stop: 05/18/19 10:59 Last Admin: 04/18/19 11:44 Dose: 1 puffs Documented by: [id number] Discontinued Medications Acetaminophen (Tylenol) 1,000 mg PO NOW STA Stop: 04/17/19 16:59 Last Admin: 04/17/19 17:09 Dose: 1,000 mg Documented by: [id number] Albuterol (Duoneb) 12 ml NEB ONE ONE Stop: 04/17/19 15:01 Last Admin: 04/17/19 15:13 Dose: 12 ml Documented by: [id number] Budesonide/Formoterol Fumarate (Symbicort 160mcg/4.5mcg) 2 puffs INH BID SARITA Stop: 05/17/19 20:59 Last Admin: 04/18/19 08:56 Dose: 2 puffs Documented by: [id number] Admin: 04/17/19 20:58 Dose: 2 puffs Documented by: [id number] Azithromycin 500 mg/ Dextrose 255 mls @ 125 mls/hr IV ONE ONE Stop: 04/17/19 18:26 Last Infusion: 04/17/19 20:11 Dose: 0 mls/hr Documented by: [id number] Admin: 04/17/19 17:45 Dose: 125 mls/hr Documented by: [id number] Ceftriaxone Sodium (Rocephin) 1,000 mg in 50 mls @ 100 mls/hr IV NOW STA Stop: 04/17/19 16:53 Last Infusion: 04/17/19 18:29 Dose: 0 mls/hr Documented by: [id number] Admin: 04/17/19 17:08 Dose: 100 mls/hr Documented by: [id number] Methylprednisolone (Solumedrol) 125 mg IV NOW STA Stop: 04/17/19 15:01 Last Admin: 04/17/19 16:05 Dose: 125 mg Documented by: [id number] Imaging Data Radiologist's Impression: Radiology results as stated below per my review and the radiologist's interpretation: XR chest 1V portable CLINICAL HISTORY: Hypoxia. Shortness of breath. COMPARISON STUDY: Chest CT June 11, 2018. FINDINGS: There is no pneumothorax or pleural effusion. There is no evidence for pulmonary edema. Cardiac size is normal. Mediastinal contours are normal. Left basilar opacity is noted. This is increased when compared to prior exams. There is minimal right basilar opacity. IMPRESSION: Mild bibasilar opacities, greater on the left. The findings could reflect pneumonia or atelectasis. Radiographic follow-up is recommended to ensure resolution. ACT 112: Negative or not required by law. Electronically signed by: Babatunde Back M.D. 04/17/2019 3:19 PM Blood Pressure Blood Pressure Findings: Normal blood pressure Blood Pressure Disposition: did not require urgent referral Discharge Plan Visit Data *Final* Discharge Date/Time: 04/17/19 19:32 Chief Complaint: Respiratory Problems Stated Complaint: breathing dif. ED Provider: Ricky Wilde Discharge Problem: Hypoxia, COPD exacerbation Patient Disposition: Admitted As Inpatient Discharge Instructions Interventions: ED Discharge Assessment Last Done: 04/17/19 19:32 The scribe's documentation has been prepared under my direction and personally reviewed by me in its entirety. I confirm that the note above accurately ref lects all work, treatment, procedures, and medical decision making performed by me.
--- NOTE | 2019-04-17 18:51 | History & Physical Report ---
Date of Service April 17, 2019 Assessment & Plan (1) Acute respiratory failure: Admit to PCU on telemetry Started ceftriaxone and azithromycin in the ER Continue treatment for possible pneumonia Procalcitonin pending Supplemental oxygen as needed to achieve oxygenation above 92% Duo nebs every 4 hours while awake Solu-Medrol 40 mg IV twice daily and taper down as patient condition is improving. Albuterol HFA 2 puffs 4 times daily as needed Budesonide formoterol 2 puffs twice daily daily Consult pulmonary for severe COPD DVT prophylaxis Lovenox 40 mg subcu daily Full code Present on Admission?: Yes (2) COPD exacerbation: As the above Present on Admission?: Yes (3) Hypoxia: As the above Present on Admission?: Yes (4) Depression: Patient is not on any medication for depression. Patient denies suicidal or any self harming thoughts. Present on Admission?: Yes (5) Anxiety: Patient did not exhibit anxiety during the examination. Present on Admission?: Yes (6) Tobacco abuse: Patient advised to stop smoking. She accepted nicotine patch. Present on Admission?: Yes (7) Constipation: Continue MiraLAX as needed for constipation. Present on Admission?: Yes History of Present Illness Chief Complaint: Shortness of breath Primary Care Provider: Loyd Alicea MD Patient is a 43 years old female with past medical history of arthritis, constipation, COPD, depression, anxiety who presents to the emergency room for evaluation of respiratory problem and shortness of breath. Patient has history of COPD and states that today her breathing was worsening. Patient is currently smoking approximately 1 pack/day. Patient reports using her inhaler but that did not give her any relief. Patient is denies any abdominal pain. Patient complain of neck pain. Patient denies fever, chills, abdominal pain, frequency, urgency. To be oxygenated above 92% patient needed to be on 4 L of oxygen. Labs are reviewed which shows: WBCs of 13.33, hemoglobin 13, hematocrit 40.9, platelets 370, sodium 137, potassium 3.8, chloride 105, BUN 6, creatinine 0.42, GFR 125.5, calcium 9.6, troponin 0 0.015, BNP 184. Urine is turbid, urine protein trace, ketones 2+, urine blood 2+. Chest x-ray shows: Mild bibasilar opacities, greater on the left, the finding could reflect pneumonia or atelectasis. Patient was made to admit patient to PCU on telemetry for respiratory failure, hypoxia and possible pneumonia. Allergies Allergy/AdvReac Type Severity Reaction Status Date / Time No Known Allergies Allergy Verified 04/17/19 15:16 Home Medications Home Medications Medication Instructions Recorded Confirmed Type albuterol sulfate 2 puff INHALATION QID PRN 02/08/18 04/17/19 History Past Med/Surg History Medical History Anxiety (Chronic) Arthritis (Chronic) Constipation (Chronic) COPD (chronic obstructive pulmonary disease) (Chronic) Depression (Chronic) Difficulty chewing (Resolved) Difficulty swallowing (Resolved) Marijuana smoker (Chronic) Ovarian cyst (Resolved) Poor dentition (Chronic) Scoliosis (Chronic) Tobacco abuse (Chronic) Surgical History History of esophagogastroduodenoscopy (EGD) (Resolved) Family History Other Family history non-contributory Social History Preferred Language: Mozambican Communication Ability: Impaired 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 Beliefs That Will Affect Care: None marital status: Single Current Living Situation: Family Other Information That Helps Us Care for You: No Feels Safe at Home: Yes Safety Concerns: Feels Safe At This Time Smoking Status: Current every day smoker Tobacco Type: cigarettes ; Cigarettes Per Day: 1 PACK/DAY ; Second Hand Exposure: Yes ; Hx Alcohol Use: No Hx Substance Use: No Review of Systems Review of Systems: All systems reviewed & are unremarkable except as noted in HPI & below Physical Exam Constitutional: WD/WN, vitals as above well developed and + cachectic Eyes: PERRL, conjunctivae normal, anicteric sclerae ENMT: external ear and nose normal, oropharynx normal Neck: trachea midline, no thyromegaly Respiratory: + respiratory distress, + labored breathing, + uses accessory muscles and + hyperresonance to percussion Auscultation: + crackles, + wheezes, + bronchovesicular breath sounds and + egophony Cardiovascular: RRR, no murmur, no edema Gastrointestinal (Abdomen): normal bowel sounds, soft, nontender, no hepatosplenomegaly Musculoskeletal: no cyanosis or clubbing, extremities motor strength 5/5 Skin: no rashes, warm and dry Neurologic: patellar DTR's 2+ bilat, sensation intact Psychiatric: A+Ox3, euthymic affect Lymphatic: no cervical or axillary lymphadenopathy Results & Data Vital Signs (Past 12 Hours) Vital Signs Temp Pulse Pulse Resp BP BP Pulse Ox 04/17/19 17:48 110 H 22 112/83 92 04/17/19 16:38 119 H 25 H 109/71 90 04/17/19 16:20 86 L 04/17/19 16:19 86 L 04/17/19 15:25 105 H 20 112/78 93 04/17/19 15:14 106 H 18 92 04/17/19 14:40 36.8 C 104 H 25 H 109/75 94 Code Status & VTE Plan Code Status Full code VTE Prophylaxis Plan VTE Prophylaxis will be ordered: Yes PG Care Time/CCT Total # of Minutes Spent Total Time Spent with Patient: Total time spent is greater than 50% in coordination of care (as documented) at patient's floor/unit and/or counseling patient:
[2019-04-17] MEDS ORDERED: ALBUTEROL HFA 8 GM INHALER INH PRN (19:54)
[2019-04-17] MEDS ORDERED: POLYETHYLENE (MIRALAX) 17 GM PACK PO PRN (19:54)
[2019-04-17] MEDS ORDERED: ACETAMINOPHEN 325 MG TAB PO PRN (19:54)
[2019-04-17] MEDS ORDERED: ALUMINUM/MAGNESIUM SUSP 30 ML UDC PO PRN (19:54)
[2019-04-17] MEDS ORDERED: MAGNESIUM HYDROXIDE SUSP 30 ML UDC PO PRN (19:54)
[2019-04-17 20:16] LABS: NT Pro B Type Natriuretic Pept 184 pg/ml (0-450)
[2019-04-17] MEDS: SODIUM CHLORIDE 0.9% 1000ML 1,000 ML IV SCH (20:18)
[2019-04-17] MEDS: methylPREDNISolone 40 MG in SYRINGE 0 ML IV SCH (20:57)
[2019-04-17] MEDS: NICOTINE 21 MG/24 HR TDSY TD SCH (20:58)
[2019-04-17] MEDS: BUDESONIDE/FORMOTEROL FUMARATE 160/4.5 60 PUFFS/INHALER INH SCH (20:58)
[2019-04-17] MEDS: ALBUT/IPRATROP 3MG/0.5MG NEB 3 ML VIAL NEB SCH (23:11)
[2019-04-18] MEDS: ALBUT/IPRATROP 3MG/0.5MG NEB 3 ML VIAL NEB SCH ×6 (03:23→23:00)
[2019-04-18 06:32] LABS: Basophils # (auto) 0.01 K/uL (0-0.2); Basophils % (auto) 0.1 %; Hematocrit (blood only) 35.6 % (37-47); Hemoglobin 11.5 g/dL (12.0-16.0); Immature Granulocytes # (auto) 0.05 K/uL (0.00-0.02); Immature Granulocytes % (auto) 0.3 %; Lymphocytes # (auto) 1.06 K/uL (1.2-3.4); Lymphocytes % (auto) 5.6 %; Mean Corpuscular Hemoglobin 28.3 pg (25-34); Mean Corpuscular Hgb Conc 32.3 g/dL (32-36); Mean Corpuscular Volume 87.5 fL (80-100); Mean Platelet Volume 8.9 fL (7.4-10.4); Monocytes # (auto) 0.52 K/uL (0.11-0.59); Monocytes % (auto) 2.7 %; Neutrophils # (auto) 17.28 K/uL (1.4-6.5); Neutrophils % (auto) 91.3 %; Platelet Count 330 K/uL (130-400); RDW Coefficient of Variation 14.7 % (11.5-14.5); RDW Standard Deviation 47.3 fL (36.4-46.3); Red Blood Count 4.07 M/uL (4.2-5.4); White Blood Count 18.92 K/uL (4.8-10.8)
[2019-04-18 06:59] LABS: Albumin Level 2.7 gm/dl (3.4-5.0); BUN Creatinine Ratio 14.5 (10-20); Calcium 9.5 mg/dl (8.5-10.1); Creatinine Clr Calc Pharmacy 98.6 ml/min; Est GFR (African American) 141.2; Est GFR (Non-African American) 121.8; Potassium 3.9 mmol/L (3.5-5.1)
[2019-04-18 07:02] LABS: Albumin Globulin Ratio 0.7 (0.9-2); Bilirubin,Total 0.3 mg/dl (0.2-1); Total Protein 6.7 gm/dl (6.4-8.2)
[2019-04-18] MEDS: methylPREDNISolone 40 MG in SYRINGE 0 ML IV SCH ×2 (08:55→21:38)
[2019-04-18] MEDS: cefTRIAXone SODIUM 1,000 MG in DEXTROSE 5% 50 ML IV SCH (08:55)
[2019-04-18] MEDS: SODIUM CHLORIDE 0.9% 1000ML 1,000 ML IV SCH ×3 (08:55→23:24)
[2019-04-18] MEDS: ENOXAPARIN INJ 40 MG/0.4 ML SYR SQ SCH (08:56)
[2019-04-18] MEDS: BUDESONIDE/FORMOTEROL FUMARATE 160/4.5 60 PUFFS/INHALER INH SCH (08:56)
[2019-04-18] MEDS: AZITHROMYCIN 250 MG TAB PO SCH (08:57)
[2019-04-18] MEDS ORDERED: ENOXAPARIN INJ 40 MG/0.4 ML SYR SQ SCH (09:00)
[2019-04-18 10:26] LABS: C Reactive Protein 1.42 mg/dl (0-0.29)
--- NOTE | 2019-04-18 11:17 | Pulmonary Consultation ---
Date of Consultation April 18, 2019 Assessment & Plan (1) Acute respiratory failure: --Acute hypoxic respiratory failure Secondary to likely multilobar aspiration pneumonia There is also segmental collapse of the right lower lobe B6 segment Patient is likely aspirating food this could be in part because of dilated esophagus and in part due to her using marijuana. Would continue with antibiotics for the time being, chest PT, incentive spirometry, recommend official swallow eval. Start tapering steroids as soon as possible. Continue with inhaled bronchodilators. Patient is too young to have COPD. On PFTs done in 2017 she had hyperinflation which could be in part secondary to underlying asthma on top of smoking. Patient denies any history of alpha-1 or cystic fibrosis in the family. Recommend GI eval for her dilated esophagus. Given her marfanoid status, and thin long fingers will get autoimmune work-up to make sure dilation of esophagus does not be secondary to an underlying autoimmune entity. Work-up for immunodeficiency could also be thought of. On the CAT scan done today there is debris appreciated in the trachea as well as the bilateral bronch. Bronchiectasis of the left lower lobe segment is also appreciated. There is some airway trapping appreciated. Severely dilated esophagus is appreciated again on the CAT scan it was present even on the CAT scan done in 2017. On CAT scan from May 2018 left lower lobe patient had atoll sign(reverse halo sign). Which was even seen on CAT scans prior. It could be just from previous infection and left lower lobe collapse in the past. 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 -- Active smoker Advised to quit Continue with nicotine transdermal patch -- Active marijuana use Advised to quit (2) Aspiration into lower respiratory tract: (3) Dilation of esophagus: (4) Poor dentition: (5) Marijuana smoker: (6) Tobacco abuse: History of Present Illness Attending Physician: Leonard Coombs DO History of Present Illness 43-year-old female with past medical history of duodenal ulcers, depression, anxiety, chronic constipation comes to the hospital with complaints of shortness of breath which has been getting progressively worse since approximately 4 to 5 days. It is associated with cough which is clear. Patient states that she cough every day it has not changed in intensity or frequency. No hemoptysis. Patient denies any chest pain does complain of chest tightness. Denies any palpitation, no headache, no blurry vision, no nausea or vomiting. Patient denies any dysuria, no diarrhea, no hematuria, no hematochezia. She does complain of constipation. Patient has been prescribed inhalers to be taken at home but unfortunately they are not covered by her insurance so she is not taking any inhaler at home right now. Patient was intubated in 2017 once this was post EGD that she was found to be very hypoxic and in respiratory distress at that time. She had bronchoscopy done around that time for left lower lobe collapse and bronchiectasis appreciated at that time. The culture and cytology from that time were negative. Social history: A pack a day since age of 17, active smoker, uses marijuana recreationally, denies any alcohol use. Patient does not work right now. 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 Never been around Farms. No poultry. No birds at home no dogs or cats at home. Family history: There is no family history of any autoimmune disease, no history of lung cancer. Allergies Allergy/AdvReac Type Severity Reaction Status Date / Time No Known Allergies Allergy Verified 04/17/19 15:16 Home Medications Home Medications Medication Instructions Recorded Confirmed Type albuterol sulfate 2 puff INHALATION QID PRN 02/08/18 04/17/19 History Patient History Medical History Anxiety (Chronic) Arthritis (Chronic) Constipation (Chronic) COPD (chronic obstructive pulmonary disease) (Chronic) Depression (Chronic) Difficulty chewing (Resolved) Difficulty swallowing (Resolved) Marijuana smoker (Chronic) Ovarian cyst (Resolved) Poor dentition (Chronic) Scoliosis (Chronic) Tobacco abuse (Chronic) Surgical History History of esophagogastroduodenoscopy (EGD) (Resolved) Family History Other Family history non-contributory Social History Preferred Language: Greenlandic Communication Ability: Effective Tube Coremaker Required: No Beliefs That Will Affect Care: None marital status: Single Current Living Situation: Family Feels Safe at Home: Yes Smoking Status: Current every day smoker Tobacco Type: cigarettes ; Cigarettes Per Day: 1 PACK/DAY ; Second Hand Exposure: Yes ; Hx Alcohol Use: No Hx Substance Use: No Review of Systems Review of Systems: All systems reviewed & are unremarkable except as noted in HPI & below Physical Exam Physical Exam: Constitutional: No acute distress, cachectic, temporal wasting HEENT: EOMI, PERRLA, poor dentition Respiratory system: Decreased air entry bilaterally, positive crackles left lower lobe, no wheeze, no rhonchi CVS: S1-S2 positive, no murmurs or gallops Abdomen: Soft, epigastric tenderness, no rebound, nondistended, positive bowel sounds x4 Extremities: +2 pulses bilaterally radialis/ dorsalis pedis, no cyanosis, no edema Neuro: Awake alert oriented x3 Psych: Normal mood and affect G/U: No Howard Constitutional: + ill appearing, + frail appearing and + malnourished Eyes: PERRL, conjunctivae normal, anicteric sclerae ENMT: external ear and nose normal, oropharynx normal Gastrointestinal (Abdomen): Inspection/Auscultation: abdomen normal to inspection and normal bowel sounds Percussion/Palpation: + abdomen tender (To the epigastrium); no guarding, abdomen not rigid and no hepatomegaly Skin: no rashes, warm and dry Lymphatic: no cervical or axillary lymphadenopathy Results & Data Vital Signs (Past 12 Hours) Vital Signs Temp Pulse Pulse Resp BP BP Pulse Ox 04/18/19 08:02 36.7 C 96 H 18 109/63 98 04/18/19 08:00 90 04/18/19 07:13 85 16 96 04/18/19 03:23 104 H 18 91 04/18/19 03:06 36.5 C 101 H 20 100/67 90 04/18/19 02:17 92 04/18/19 01:38 95 04/18/19 01:36 96 04/17/19 23:11 99 H 18 92 04/17/19 23:00 88 04/17/19 22:51 36.4 C L 102 H 18 102/70 93 04/18/19 06:17 04/18/19 06:17 PG Care Time/CCT Total # of Minutes Spent Total Time Spent with Patient: Total time spent is greater than 50% in coordination of care (as documented) at patient's floor/unit and/or counseling patient:
--- NOTE | 2019-04-18 11:36 | CT Scan Report ---
CT chest HighResolution wo con HISTORY: 43 years-old Female f/u LLL and RLL follow-up study in a patient with history of pulmonary nodules and pleural effusions COMPARISON: Chest CT 06/11/2018, and 06/13/2016, chest radiograph 04/17/2019 TECHNIQUE: Multiple axial CT images of the chest were obtained utilizing high resolution protocol wit h both inspiration and expiration prone and supine images. No IV contrast was utilized. A dose loweri ng technique was used consistent with the principals of TRISH. FINDINGS: Limited exam without the use of IV contrast. No large thyroid nodule or definite adenopathy. Evaluati on for adenopathy is limited without the use of IV contrast. Heart is upper limits of normal in size. No pericardial effusion or thoracic aortic aneurysm. Unopacified pulmonary artery is unremarkable. N o large pleural effusion. Possible loculated trace right pleural effusion. No pneumothorax. There is collapse with consolidation of the right lower lobe. Extensive mucous plugging of the right lower lob e is noted with associated partially opacified air bronchograms. Patchy groundglass opacities are not ed throughout the right lung base with linear consolidation of the right middle lobe. Linear consolid ation of the left lower lobe with mucous plugging and multiple partially opacified air bronchograms. Mild linear subsegmental atelectasis/scarring of the lingula. No overt pulmonary edema. No honeycombi ng or evidence of interstitial lung disease. 5 mm solid nodule of the right middle lobe is unchanged dating back to 2016, likely benign. Secretions are noted about the trachea and bronchi. There is no s ignificant change of the lung base opacities with prone or expiration. Distended patulous esophagus is noted with layering secretions. Soft tissues and breast parenchyma ar e unremarkable. Bones appear intact. No suspicious bone lesions or acute fracture identified. IMPRESSION: 1. Large amount of tracheobronchial secretions are present resulting in multifocal mucus plugging of the lower lobes. There is complete collapse with consolidation/atelectasis of the right lower lobe wi th partial collapse and atelectasis/consolidation of the left lower lobe. 2. Patchy groundglass opacities of the right lung base are suggestive of infectious or inflammatory p neumonitis. Correlate clinically to exclude aspiration. 3. Distended air and debris filled esophagus. 4. No evidence of interstitial lung disease. ACT 112: Negative or not required by law. The above report was generated using voice recognition software. It may contain grammatical, syntax o r spelling errors. Electronically signed by: Jimmy Warner M.D. 04/18/2019 11:35 AM
[2019-04-18] MEDS: TIOTROPIUM BROMIDE 5 PUFF/90 MCG INH INH SCH (11:44)
[2019-04-18] MEDS: BuPROPion SR 150 MG TABCR PO SCH (11:44)
--- NOTE | 2019-04-18 14:52 | Fluoroscopy Report ---
MODIFIED BARIUM SWALLOW CLINICAL HISTORY: Dysphagia. Evaluate for aspiration. COMPARISON STUDY: None. FLUOROSCOPY TIME: 4 minutes. TECHNIQUE: A modified barium swallow was performed in conjunction with Speech Pathology. The patient ingested varying consistencies of barium containing material. Video fluoroscopy was performed. FINDINGS: A small amount of tracheal aspiration was noted with swallows of thin liquids. There was pe netration with multiple additional consistencies. Significant residuals within the piriform sinuses a nd vallecula were noted with diminished epiglottic inversion and laryngeal elevation. Swallowing mech anism was significantly weakened. IMPRESSION: 1. Weakened swallowing mechanism with diminished epiglottic inversion and laryngeal elevation. Small amount of tracheal aspiration with thin liquids. 2. Significant residuals within the piriform sinuses and vallecula with multiple consistencies. 3. Full recommendations by speech pathology to follow. ACT 112: Negative or not required by law. Electronically signed by: Babatunde Back M.D. 04/18/2019 2:51 PM
--- NOTE | 2019-04-18 15:07 | Gastrointestinal Consultation ---
Date of Consultation April 18, 2019 Assessment & Plan (1) Dilation of esophagus: (2) Dysphagia: ddx includes motility disorder such as scleroderma, CREST syndrome, malignancy causing pseudoachalasia vs other etiology. plan for EGD to further evaluate tomorrow 1. EGD 04/19 2. NPO 3.would consider work up for autoimmune diseases such as scleroderma and CREST syndrome. Thank you for allowing me to participate in the care of this patient. History of Present Illness Attending Physician: Leonard Coombs DO 43 yo female here with PNA. GI consulted for dilated esophagus, possible aspiration due to it. She notes dysphagia to solids and liquids for months with a sensation of food getting stuck in her throat. She was noted to be aspirating during speech eval this visit. Also notes a significant unintentional weight loss, has a 23 pack year smoking history, current active smoker. Also notes dyspnea and cough, likely due to her aspiration. No family hx esophageal cancer nor gastric cancer. She had EGD in the past which showed duodenal ulcers. Labs show anemia, EGD as above, swallow study and CT notable for findings c/w aspiration and dilated esophagus. Allergies Allergy/AdvReac Type Severity Reaction Status Date / Time No Known Allergies Allergy Verified 04/17/19 15:16 Home Medications Home Medications Medication Instructions Recorded Confirmed Type albuterol sulfate 2 puff INHALATION QID PRN 02/08/18 04/17/19 History Patient History Medical History Anxiety (Chronic) Arthritis (Chronic) Constipation (Chronic) COPD (chronic obstructive pulmonary disease) (Chronic) Depression (Chronic) Difficulty chewing (Resolved) Difficulty swallowing (Resolved) Marijuana smoker (Chronic) Ovarian cyst (Resolved) Poor dentition (Chronic) Scoliosis (Chronic) Tobacco abuse (Chronic) Surgical History History of esophagogastroduodenoscopy (EGD) (Resolved) Family History Other Family history non-contributory Social History Preferred Language: Lao Communication Ability: Effective Pediatric Neurologist Required: No Beliefs That Will Affect Care: None marital status: Single Current Living Situation: Family Feels Safe at Home: Yes Smoking Status: Current every day smoker Tobacco Type: cigarettes ; Cigarettes Per Day: 1 PACK/DAY ; Second Hand Exposure: Yes ; Hx Alcohol Use: No Hx Substance Use: No Review of Systems Constitutional: no fever, no chills and no weight loss Eyes: as per Subjective / HPI Ear, Nose, Mouth, Throat: as per Subjective / HPI Respiratory: no dyspnea and no dyspnea on exertion Cardiovascular: no chest pain and no palpitations Gastrointestinal: as per Subjective / HPI Musculoskeletal: no joint pain and no swelling Integumentary: no rash and no lesions Neurologic: no numbness and no paresthesia Psychiatric: no depression and no anxiety Endocrine: no fatigue Hematologic / Lymphatic: no easy bleeding and no easy bruising Physical Exam Constitutional: WD/WN, vitals as above Eyes: EOM intact bilaterally Neck: normal visual inspection Respiratory: normal respiratory effort, lungs clear to auscultation Cardiovascular: RRR, no murmur, no edema Gastrointestinal (Abdomen): Inspection/Auscultation: abdomen normal to inspection; abdomen not distended Percussion/Palpation: abdomen soft; abdomen nontender and no hepatosplenomegaly Musculoskeletal: Extremities: no cyanosis Gait: normal gait Skin: no rashes, warm and dry Neurologic: moves all extremities Psychiatric: A+Ox3, euthymic affect Results & Data Vital Signs (Past 12 Hours) Vital Signs Temp Pulse Pulse Resp BP Pulse Ox 04/18/19 11:34 36.8 C 120 H 20 107/74 95 04/18/19 11:07 110 H 18 92 04/18/19 08:02 36.7 C 96 H 18 109/63 98 04/18/19 08:00 90 04/18/19 07:13 85 16 96 04/18/19 03:23 104 H 18 91 PG Care Time/CCT Total # of Minutes Spent Total Time Spent with Patient: Total time spent is greater than 50% in coordination of care (as documented) at patient's floor/unit and/or counseling patient:
--- NOTE | 2019-04-18 15:21 | Hospitalist Progress Note ---
Date of Service April 18, 2019 Assessment & Plan (1) Acute respiratory failure: Acute hypoxic respiratory failure: - seems likely 2/[address] scan and subsequent swallow study - still requiring O2 support of 2L NC - Continued Albuterol PRN, Symbicort SARITA; added Tiotropium - will continue abx; wean steroids as patient continues to improve - CT scan demonstrated: food debris in trachea, and bronchiectasis of the left lower lobe. - Swallow Study: demonstrated high propensity for aspiration given diminished swallow motion and high retention in oropharnyx/pharynx - Consulted Pulm: appreciate recs - Consulted GI: EGD for determination of decreased swallowing motility - patient will remain NPO, until able to be further evaluated by GI Diet: NPO Code: Full DVT PPx: SCDs (2) Aspiration into lower respiratory tract: (3) Dilation of esophagus: (4) Poor dentition: Supervising Physician Co-Signing Physician Notes I personally examined the patient and verified all solomon points of history and exam, discussed case, and agree with decision making with Dr Fang. breathing feeling better. just got back from speech eval at the time i see her - then full report is pending but she relates it went badly. erp implementation consultant input greatly appreciated. vitals noted nad very poor dentition, thin and frail, breathing unlabored no accessory muscles good effort but still requiring 2L NC. hypoxic respiratory failure - severe airflow limitation noted on PFTs 2016, appears to have been lost to follow up since last visit with pulm in may; does not appear to have seen PCP since before that -relates difficulty with costs for inhalers - discussed that this is a frequent problem and there are many alternate solutions - so for current inhaler needs will have navigator chow check, but in the future implored her to not miss meds due to cost without at least talking to her medical team -LAMA/LABA/inhaled steroid, prn short acting beta agonist -also appears to have significant dysphagia creating a chronic aspiration picture - speech and GI input appreciated. ?due to poor dentition causing weakness leading to frailty? also agree CREST and similar on ddx - await EGD. -more stable - continue current care otherwise otherwise as above Subjective Patient is feeling improved this morning, states that she was unsure since the feeling of being so short of breath was scary for her that she did not know what was going on; had attempted to take medications previously following discharge in 2018, but after initial denial by insurance thought she was out of options when it came to continuing treatment and just has been using her rescue frequently lately has been utilizing mostly soft foods in order to maximize what she could eat Review of Systems Constitutional: no fever, no chills and no sweats Eyes: no diplopia and no spots in vision Respiratory: no cough, no change in sputum and no dyspnea Cardiovascular: no chest pain, no dyspnea and no edema Gastrointestinal: + early satiety and + dysphagia; no nausea and no vomiting Physical Exam Constitutional: well developed, + thin, + frail appearing, + disheveled, cooperative and + malnourished temporal wasting Eyes: PERRL, conjunctivae normal, anicteric sclerae Respiratory: + abnormal respiratory effort, no retractions, no dullness to percussion and no cough Auscultation: + diminished lung sounds; no crackles, no wheezes and no pleural rub Cardiovascular: RRR, no murmur, no edema Gastrointestinal (Abdomen): normal bowel sounds, soft, nontender, no hepatosplenomegaly Results & Data Vital Signs (Past 12 Hours) Vital Signs Temp Pulse Pulse Resp BP Pulse Ox 04/18/19 11:34 36.8 C 120 H 20 107/74 95 04/18/19 11:07 110 H 18 92 04/18/19 08:02 36.7 C 96 H 18 109/63 98 04/18/19 08:00 90 04/18/19 07:13 85 16 96 04/18/19 03:23 104 H 18 91 Laboratory Results 04/18/19 04/18/19 04/18/19 Range/Units 09:17 09:07 09:07 WBC (4.8-10.8) K/uL RBC (4.2-5.4) M/uL Hgb (12.0-16.0) g/dL Hct (37-47) % MCV (80-100) fL MCH (25-34) pg MCHC (32-36) g/dL RDW Std Deviation (36.4-46.3) fL RDW Coeff of Abhishek (11.5-14.5) % Plt Count (130-400) K/uL MPV (7.4-10.4) fL Immature Gran % (Auto) % Neut % (Auto) % Lymph % (Auto) % Tillman % (Auto) % Eos % (Auto) % Baso % (Auto) % Immature Gran # (Auto) (0.00-0.02) K/uL Neut # (Auto) (1.4-6.5) K/uL Lymph # (Auto) (1.2-3.4) K/uL Tillman # (Auto) (0.11-0.59) K/uL Eos # (Auto) (0-0.5) K/uL Baso # (Auto) (0-0.2) K/uL ESR (0-21) mm/hr VBG pH (7.36-7.41) VBG pCO2 (38-50) mmHg VBG pO2 mmHg VBG HCO3 mmol/L VBG O2 Saturation % VBG Base Excess mEq/L Barometric Pressure mm/Hg Sodium (136-145) mmol/L Potassium (3.5-5.1) mmol/L Chloride (98-107) mmol/L Carbon Dioxide (21-32) mmol/L Anion Gap (3-11) BUN (7-18) mg/dl Creatinine (0.6-1.2) mg/dl Est Cr Clr Drug Dosing ml/min Est GFR ( Amer) Est GFR (Non-Af Amer) BUN/Creatinine Ratio (10-20) Glucose (70-99) mg/dl Calcium (8.5-10.1) mg/dl Magnesium (1.8-2.4) mg/dl Total Bilirubin (0.2-1) mg/dl AST (15-37) U/L ALT (12-78) U/L Alkaline Phosphatase (45-117) U/L Total Creatine Kinase (26-192) U/L Troponin I (0-0.045) ng/ml C-Reactive Protein (0-0.29) mg/dl NT-Pro-B Natriuret Pep (0-450) pg/ml Total Protein (6.4-8.2) gm/dl Albumin (3.4-5.0) gm/dl Globulin (2.5-4.0) gm/dl Albumin/Globulin Ratio (0.9-2) Procalcitonin (0-0.5) ng/ml TSH (0.300-4.500) uIu/ml Rheumatoid Factor Pending Cycl Citrul Peptide IgG < 0.40 (0-4.99) U/ml Anti-Neutrophil (Flow) Pending SUSAN-1 Antibody Pending SS-A/Ro Antibody Pending SS-B/La Antibody Pending PRODUCTION SUPPORT SPECIALIST Antibody Pending Scl-70 Scleroderma Ab Pending Double Strand DNA Ab Cancelled Pending Anti-Centromere Ab Pending 04/18/19 04/18/19 04/18/19 Range/Units 09:07 09:07 06:17 WBC (4.8-10.8) K/uL RBC (4.2-5.4) M/uL Hgb (12.0-16.0) g/dL Hct (37-47) % MCV (80-100) fL MCH (25-34) pg MCHC (32-36) g/dL RDW Std Deviation (36.4-46.3) fL RDW Coeff of Abhishek (11.5-14.5) % Plt Count (130-400) K/uL MPV (7.4-10.4) fL Immature Gran % (Auto) % Neut % (Auto) % Lymph % (Auto) % Tillman % (Auto) % Eos % (Auto) % Baso % (Auto) % Immature Gran # (Auto) (0.00-0.02) K/uL Neut # (Auto) (1.4-6.5) K/uL Lymph # (Auto) (1.2-3.4) K/uL Tillman # (Auto) (0.11-0.59) K/uL Eos # (Auto) (0-0.5) K/uL Baso # (Auto) (0-0.2) K/uL ESR 69 H (0-21) mm/hr VBG pH (7.36-7.41) VBG pCO2 (38-50) mmHg VBG pO2 mmHg VBG HCO3 mmol/L VBG O2 Saturation % VBG Base Excess mEq/L Barometric Pressure mm/Hg Sodium 140 (136-145) mmol/L Potassium 3.9 (3.5-5.1) mmol/L Chloride 105 (98-107) mmol/L Carbon Dioxide 29 (21-32) mmol/L Anion Gap 5.0 (3-11) BUN 7 (7-18) mg/dl Creatinine 0.46 L (0.6-1.2) mg/dl Est Cr Clr Drug Dosing 98.6 ml/min Est GFR ( Amer) 141.2 Est GFR (Non-Af Amer) 121.8 BUN/Creatinine Ratio 14.5 (10-20) Glucose 185 H (70-99) mg/dl Calcium 9.5 (8.5-10.1) mg/dl Magnesium (1.8-2.4) mg/dl Total Bilirubin 0.3 (0.2-1) mg/dl AST 24 (15-37) U/L ALT 58 (12-78) U/L Alkaline Phosphatase 300 H (45-117) U/L Total Creatine Kinase 103 (26-192) U/L Troponin I (0-0.045) ng/ml C-Reactive Protein 1.42 H (0-0.29) mg/dl NT-Pro-B Natriuret Pep (0-450) pg/ml Total Protein 6.7 (6.4-8.2) gm/dl Albumin 2.7 L (3.4-5.0) gm/dl Globulin 4.0 (2.5-4.0) gm/dl Albumin/Globulin Ratio 0.7 L (0.9-2) Procalcitonin (0-0.5) ng/ml TSH (0.300-4.500) uIu/ml Rheumatoid Factor Cycl Citrul Peptide IgG (0-4.99) U/ml Anti-Neutrophil (Flow) SUSAN-1 Antibody SS-A/Ro Antibody SS-B/La Antibody PRODUCTION SUPPORT SPECIALIST Antibody Scl-70 Scleroderma Ab Double Strand DNA Ab Anti-Centromere Ab 04/18/19 04/17/19 04/17/19 Range/Units 06:17 15:22 15:22 WBC 18.92 H (4.8-10.8) K/uL RBC 4.07 L (4.2-5.4) M/uL Hgb 11.5 L (12.0-16.0) g/dL Hct 35.6 L (37-47) % MCV 87.5 (80-100) fL MCH 28.3 (25-34) pg MCHC 32.3 (32-36) g/dL RDW Std Deviation 47.3 H (36.4-46.3) fL RDW Coeff of Abhishek 14.7 H (11.5-14.5) % Plt Count 330 (130-400) K/uL MPV 8.9 (7.4-10.4) fL Immature Gran % (Auto) 0.3 % Neut % (Auto) 91.3 % Lymph % (Auto) 5.6 % Tillman % (Auto) 2.7 % Eos % (Auto) 0.0 % Baso % (Auto) 0.1 % Immature Gran # (Auto) 0.05 H (0.00-0.02) K/uL Neut # (Auto) 17.28 H (1.4-6.5) K/uL Lymph # (Auto) 1.06 L (1.2-3.4) K/uL Tillman # (Auto) 0.52 (0.11-0.59) K/uL Eos # (Auto) 0.00 (0-0.5) K/uL Baso # (Auto) 0.01 (0-0.2) K/uL ESR (0-21) mm/hr VBG pH (7.36-7.41) VBG pCO2 (38-50) mmHg VBG pO2 mmHg VBG HCO3 mmol/L VBG O2 Saturation % VBG Base Excess mEq/L Barometric Pressure mm/Hg Sodium (136-145) mmol/L Potassium (3.5-5.1) mmol/L Chloride (98-107) mmol/L Carbon Dioxide (21-32) mmol/L Anion Gap (3-11) BUN (7-18) mg/dl Creatinine (0.6-1.2) mg/dl Est Cr Clr Drug Dosing ml/min Est GFR ( Amer) Est GFR (Non-Af Amer) BUN/Creatinine Ratio (10-20) Glucose (70-99) mg/dl Calcium (8.5-10.1) mg/dl Magnesium (1.8-2.4) mg/dl Total Bilirubin (0.2-1) mg/dl AST (15-37) U/L ALT (12-78) U/L Alkaline Phosphatase (45-117) U/L Total Creatine Kinase (26-192) U/L Troponin I (0-0.045) ng/ml C-Reactive Protein (0-0.29) mg/dl NT-Pro-B Natriuret Pep (0-450) pg/ml Total Protein (6.4-8.2) gm/dl Albumin (3.4-5.0) gm/dl Globulin (2.5-4.0) gm/dl Albumin/Globulin Ratio (0.9-2) Procalcitonin 0.07 (0-0.5) ng/ml TSH Cancelled (0.300-4.500) uIu/ml Rheumatoid Factor Cycl Citrul Peptide IgG (0-4.99) U/ml Anti-Neutrophil (Flow) SUSAN-1 Antibody SS-A/Ro Antibody SS-B/La Antibody PRODUCTION SUPPORT SPECIALIST Antibody Scl-70 Scleroderma Ab Double Strand DNA Ab Anti-Centromere Ab 04/17/19 04/17/19 04/17/19 Range/Units 15:22 15:22 15:22 WBC 13.33 H (4.8-10.8) K/uL RBC 4.65 (4.2-5.4) M/uL Hgb 13.0 (12.0-16.0) g/dL Hct 40.9 (37-47) % MCV 88.0 (80-100) fL MCH 28.0 (25-34) pg MCHC 31.8 L (32-36) g/dL RDW Std Deviation 46.8 H (36.4-46.3) fL RDW Coeff of Abhishek 14.6 H (11.5-14.5) % Plt Count 370 (130-400) K/uL MPV 9.1 (7.4-10.4) fL Immature Gran % (Auto) 0.2 % Neut % (Auto) 73.1 % Lymph % (Auto) 19.7 % Tillman % (Auto) 4.7 % Eos % (Auto) 2.0 % Baso % (Auto) 0.3 % Immature Gran # (Auto) 0.03 H (0.00-0.02) K/uL Neut # (Auto) 9.74 H (1.4-6.5) K/uL Lymph # (Auto) 2.63 (1.2-3.4) K/uL Tillman # (Auto) 0.63 H (0.11-0.59) K/uL Eos # (Auto) 0.26 (0-0.5) K/uL Baso # (Auto) 0.04 (0-0.2) K/uL ESR (0-21) mm/hr VBG pH 7.39 (7.36-7.41) VBG pCO2 49 (38-50) mmHg VBG pO2 52 mmHg VBG HCO3 29 mmol/L VBG O2 Saturation 86.5 % VBG Base Excess 3.6 mEq/L Barometric Pressure 737.9 mm/Hg Sodium 137 (136-145) mmol/L Potassium 3.8 (3.5-5.1) mmol/L Chloride 105 (98-107) mmol/L Carbon Dioxide 32 (21-32) mmol/L Anion Gap 0 L (3-11) BUN 6 L (7-18) mg/dl Creatinine 0.42 L (0.6-1.2) mg/dl Est Cr Clr Drug Dosing 110.4 ml/min Est GFR ( Amer) 145.5 Est GFR (Non-Af Amer) 125.5 BUN/Creatinine Ratio 15.1 (10-20) Glucose 109 H (70-99) mg/dl Calcium 9.6 (8.5-10.1) mg/dl Magnesium 2.3 (1.8-2.4) mg/dl Total Bilirubin (0.2-1) mg/dl AST (15-37) U/L ALT (12-78) U/L Alkaline Phosphatase (45-117) U/L Total Creatine Kinase (26-192) U/L Troponin I < 0.015 (0-0.045) ng/ml C-Reactive Protein (0-0.29) mg/dl NT-Pro-B Natriuret Pep 184 (0-450) pg/ml Total Protein (6.4-8.2) gm/dl Albumin (3.4-5.0) gm/dl Globulin (2.5-4.0) gm/dl Albumin/Globulin Ratio (0.9-2) Procalcitonin (0-0.5) ng/ml TSH 1.520 (0.300-4.500) uIu/ml Rheumatoid Factor Cycl Citrul Peptide IgG (0-4.99) U/ml Anti-Neutrophil (Flow) SUSAN-1 Antibody SS-A/Ro Antibody SS-B/La Antibody PRODUCTION SUPPORT SPECIALIST Antibody Scl-70 Scleroderma Ab Double Strand DNA Ab Anti-Centromere Ab Medications Administered Current Inpatient Medications Acetaminophen (Tylenol) 650 mg PO Q4H PRN PRN Reason: Pain or Fever Stop: 05/17/19 19:53 Al Hydrox/Mg Hydrox/Simethicone (Maalox) 15 ml PO Q4H PRN PRN Reason: Dyspepsia Stop: 05/17/19 19:53 Albuterol (Ventolin Hfa) 2 puffs INH QID PRN PRN Reason: Shortness Of Breath Stop: 05/17/19 19:53 Albuterol (Duoneb) 3 ml NEB Q4R [facility] Stop: 05/17/19 22:59 Last Admin: 04/18/19 15:09 Dose: 3 ml Documented by: Azithromycin (Zithromax) 250 mg PO QAM [facility] Stop: 04/25/19 08:59 Last Admin: 04/18/19 08:57 Dose: 250 mg Documented by: Budesonide/Formoterol Fumarate (Symbicort 160mcg/4.5mcg) 2 puffs INH BID [facility] Stop: 05/17/19 20:59 Last Admin: 04/18/19 08:56 Dose: 2 puffs Documented by: Bupropion HCl (Wellbutrin-Sr) 150 mg PO DAILY [facility] Stop: 05/18/19 10:59 Last Admin: 04/18/19 11:44 Dose: 150 mg Documented by: Enoxaparin Sodium (Lovenox) 40 mg SQ QAM [facility] Stop: 05/18/19 08:59 Last Admin: 04/18/19 08:56 Dose: 40 mg Documented by: Sodium Chloride (Nss 1000ml) 1,000 mls @ 80 mls/hr IV .[id number] [facility] Stop: 05/17/19 19:53 Last Admin: 04/18/19 08:55 Dose: 80 mls/hr Documented by: Ceftriaxone Sodium 1,000 mg/ (Dextrose) 60 mls @ 100 mls/hr IV DAILY [facility]; Protocol Stop: 04/24/19 08:59 Last Infusion: 04/18/19 10:04 Dose: Infused Documented by: Methylprednisolone 40 mg/ (Syringe) 0.64 mls @ 1.5 mls/min IV BID [facility] Stop: 05/17/19 20:59 Last Admin: 04/18/19 08:55 Dose: 1.5 mls/min Documented by: Magnesium Hydroxide (Milk Of Magnesia) 30 ml PO Q12H PRN PRN Reason: Constipation Stop: 05/17/19 19:53 Miscellaneous (Remove Nicoderm Patch) 1 ea N/A DAILY@2058 [facility] Stop: 05/18/19 20:58 Nicotine (Nicoderm Cq) 21 mg TD HS [facility] Stop: 05/17/19 20:59 Last Admin: 04/17/19 20:58 Dose: 21 mg Documented by: Polyethylene Glycol (Miralax Powder Packet) 17 gm PO DAILY PRN PRN Reason: Constipation Stop: 05/17/19 19:53 Tiotropium Nubieber (Spiriva) 1 puffs INH QAM [facility] Stop: 05/18/19 10:59 Last Admin: 04/18/19 11:44 Dose: 1 puffs Documented by: Resident Activity Tracking Resident Involvement: Resident Care Provided Care Provided: Adult Hospital Medicine
--- NOTE | 2019-04-18 16:49 | Billing Data ---
Date of Service April 18, 2019 Coding Level of Care Code 09078 Subseq Hosp Care Lvl 3
[2019-04-18] MEDS: FLUTICASONE/SALMETEROL 100/50 (ADVAIR) 14 PUFF/1 INHALER INH SCH (21:38)
[2019-04-18] MEDS: NICOTINE 21 MG/24 HR TDSY TD SCH (21:39)
[2019-04-19] MEDS: ALBUT/IPRATROP 3MG/0.5MG NEB 3 ML VIAL NEB SCH ×6 (03:07→22:53)
[2019-04-19 06:01] LABS: Hematocrit (blood only) 31.9 % (37-47); Immature Granulocytes # (auto) 0.04 K/uL (0.00-0.02); Immature Granulocytes % (auto) 0.3 %; Lymphocytes # (auto) 0.99 K/uL (1.2-3.4); Lymphocytes % (auto) 7.7 %; Mean Corpuscular Hemoglobin 27.8 pg (25-34); Mean Corpuscular Hgb Conc 31.3 g/dL (32-36); Mean Corpuscular Volume 88.6 fL (80-100); Mean Platelet Volume 9.1 fL (7.4-10.4); Monocytes # (auto) 0.23 K/uL (0.11-0.59); Monocytes % (auto) 1.8 %; Neutrophils % (auto) 90.2 %; Platelet Count 290 K/uL (130-400); RDW Coefficient of Variation 15.2 % (11.5-14.5); RDW Standard Deviation 49.3 fL (36.4-46.3); White Blood Count 12.86 K/uL (4.8-10.8)
[2019-04-19 06:32] LABS: Alanine Aminotransferase 41 U/L (12-78); Albumin Level 2.4 gm/dl (3.4-5.0); Aspartate Aminotransferase 15 U/L (15-37); BUN Creatinine Ratio 21.8 (10-20); Blood Urea Nitrogen 8 mg/dl (7-18); Calcium 8.9 mg/dl (8.5-10.1); Carbon Dioxide 28 mmol/L (21-32); Chloride 113 mmol/L (98-107); Creatinine Clr Calc Pharmacy 132.8 ml/min; Est GFR (African American) > 150.0; Est GFR (Non-African American) 133.3; Glucose 121 mg/dl (70-99); Potassium 4.1 mmol/L (3.5-5.1); Sodium 144 mmol/L (136-145)
[2019-04-19 06:34] LABS: Albumin Globulin Ratio 0.7 (0.9-2); Alkaline Phosphatase 224 U/L (45-117); Bilirubin,Total 0.2 mg/dl (0.2-1); Globulin 3.5 gm/dl (2.5-4.0); Total Protein 5.9 gm/dl (6.4-8.2)
--- NOTE | 2019-04-19 09:17 | Pulmonology Progress Note ---
Date of Service April 19, 2019 Assessment & Plan (1) Acute respiratory failure: --Acute hypoxic respiratory failure Secondary to likely multilobar aspiration pneumonia There is also segmental collapse of the right lower lobe B6 segment Patient is likely aspirating food this could be in part because of dilated esophagus and in part due to her using marijuana. Would continue with antibiotics for the time being, chest PT, incentive spirometry, Swallow evaluation: Confirmed aspiration Transition to p.o. prednisone 40 mg for 3 days then stop Continue with inhaled bronchodilators. Patient is too young to have COPD. On PFTs done in 2017 she had hyperinflation which could be in part secondary to underlying asthma on top of smoking. Patient denies any history of alpha-1 or cystic fibrosis in the family. GI on board for dilated esophagus. Follow-up recommendations Given her marfanoid status, and thin long fingers will get autoimmune work-up to make sure dilation of esophagus does not be secondary to an underlying a utoimmune entity. Work-up for immunodeficiency could also be thought of. Looking clinically the patient today seems that she is back to her baseline respiratory status. Would continue with chest PT continue course of antibiotics for 5 days and follow-up recommendations from GI. She needs to follow-up with pulmonary in couple weeks. Importance of not using marijuana explained to the patient. She will be on Breo and Incruse at the time of discharge. -- Active smoker Advised to quit Continue with nicotine transdermal patch -- Active marijuana use Advised to quit (2) Aspiration into lower respiratory tract: (3) Dilation of esophagus: (4) Poor dentition: (5) Marijuana smoker: (6) Tobacco abuse: Subjective Patient seen and examined at bedside. No acute distress, no adverse events overnight. Patient states that she feels much better. Still has complaints of difficulty s wallowing. Shortness of breath has improved significantly. Bringing up clear phlegm. No chest pain, no palpitation. No nausea or vomiting. Epigastric pain is improved. No dysuria, no hematuria, no hematochezia, no diarrhea. Patient is n.p.o. for EGD today. At the time of examination patient was saturating 97% on room air with heart rate of 82 at rest. Review of Systems Review of Systems: All systems reviewed & are unremarkable except as noted in HPI & below Physical Exam Constitutional: + ill appearing, + frail appearing and + malnourished Eyes: PERRL, conjunctivae normal, anicteric sclerae ENMT: external ear and nose normal, oropharynx normal Gastrointestinal (Abdomen): normal bowel sounds, soft, nontender, no hepatosplenomegaly Inspection/Auscultation: abdomen normal to inspection and normal bowel sounds Percussion/Palpation: no guarding, abdomen not rigid and no hepatomegaly Skin: no rashes, warm and dry Lymphatic: no cervical or axillary lymphadenopathy Results & Data Vital Signs (Past 12 Hours) Vital Signs Temp Pulse Pulse Resp BP BP Pulse Ox 04/19/19 08:00 36.8 C 69 18 109/69 96 04/19/19 06:57 72 18 93 04/19/19 03:49 36.6 C 92 H 18 104/62 91 04/19/19 03:09 88 18 82 L 04/19/19 00:16 98 H 04/18/19 23:11 36.8 C 101 H 20 105/65 91 04/18/19 23:00 98 H 18 95 04/19/19 05:29 04/19/19 05:29 PG Care Time/CCT Total # of Minutes Spent Total Time Spent with Patient: Total time spent is greater than 50% in coordin ation of care (as documented) at patient's floor/unit and/or counseling patient:
[2019-04-19] MEDS ORDERED: methylPREDNISolone 40 MG in SYRINGE 0 ML IV ONE (09:30)
--- NOTE | 2019-04-19 09:41 | Hospitalist Progress Note ---
Date of Service April 19, 2019 Assessment & Plan (1) Acute respiratory failure: Acute hypoxic respiratory failure: - seems likely 2/[address] scan and subsequent swallow study results - patient will remain NPO at this time, aim is to see if she can have any improv ement in motility of her oropharynx before allowing retrial of oral intake; if no improvement then patient will likely benefit from alternative feeding options (PEG vs J-tube vs NG tube), but each have their own intrinsic risks that will need to be further discussed with patient - Continued Albuterol PRN; continued Advair diskus and Spiriva, as these are closest to what she will be covered for insurance [place] after discharge (Breo Ellipta 100-25 1 puff daily, and Incruse Ellipta 62.5 1 puff daily) - will continue abx; wean steroids as patient continues to improve - CT scan demonstrated: food debris in trachea, and bronchiectasis of the left lower lobe. - Swallow Study: demonstrated high propensity for aspiration given diminished swallow motion and high retention in oropharnyx/pharynx - severe protein calorie mal-nutrition - Consulted Pulm: advised auto-immune work-up for Scleroderma/CREST/[place]agas - Consulted GI: EGD demonstrated decreased motility suspicious for auto-immune disease (scleroderma/CREST) - awaiting results of auto-immune antibodies Diet: NPO Code: Full DVT PPx: SCDs (2) Aspiration into lower respiratory tract: (3) Dilation of esophagus: (4) Poor dentition: Supervising Physician Co-Signing Physician Notes Resident Physician Supervision Note: I was present with Dr. Rl Fang during the history and exam. I discussed the case with the resident and agree with the findings and plan as documented in the note. Any exceptions or clarifications are listed here: none. 43yo female with history of COPD (records indicate FEV1 43%) who presented with b/l lower lobe pneumonia. On CT chest her esophagus was severely dilated and debris was seen in the trachea. All of this was concerning for aspiration pneumonia from an abnormal esophagus. Seen by speech; video swallow performed; aspiration confirmed. Seen by [facility] - EGD performed today - minimal to no peristalsis was seen throughout the esophagus. This is highly suggestive of autoimmune disease. During bedside rounds patient was very upset, tearful. Her mother was present for our discussion. We reviewed the EGD results and what GI is recommending. Supportive therapy given to patient and mother. Questions answered. Dr Fang also went back to the bedside on another visit later in the day to address any further questions. VSS O2 sats wnl in RA gen - cachetic, looks older than stated age, tearful mouth - poor dentition; MMM; no thrush heart - RRR, s1 s2 lungs - no wheeze; decreased BS bases; occasional crackles b/l abd - soft NT ND BS+ musculo - generalized muscle wasting ext - no edema EGD results reviewed; video swallow results reviewed A/P: 1. b/l lower lobe pneumonia - likely due to aspiration given the dysphagia and esophageal findings. Cont IV rocephin/zithromax. Day #3 of each. 2. acute hypoxic resp failure - O2 weaned off. 2nd to #1 +/- asthma/COPD exacerbation. Latter also improved. Appreciate pulmonary consultation. 3. markedly dilated esophagus with resulting dysphagia and aspiration - s/p EGD today - minimal to no peristalsis seen during the EGD. Highly concerning for autoimmune disease. Autoimmune w/u has been dispatched (Scl-70 Ab, RF ab, MARY, etc). Appreciate GI consultation. 4. dysphagia - maintain strict NPO status. Appreciate speech consultation & recs. Unlikely that dysphagia training will help current situation. 5. FEN - add dextrose to fluids. Consider PPN vs NG tube placement for enteral nutrition. 6. tobacco dependence - nicoderm. 7. severe protein calorie malnutrition - see #5 above. 8. DVT proph - lovenox. will need to address short-term nutrition tomorrow in more detail w/ patient Documented By: Jassi Suarez MD Subjective Patient is feeling improved this morning when it comes to her breathing, feels like the inhalers have been somewhat helpful as she continues to have them available to her. Feels some hunger, but understands that she needs to stay NPO for the EGD today. Update after the EGD: Patient was made aware of the seriousness of the findings of the EGD, and the need for exploration of alternative feeding options if this is not self-limiting. Review of Systems Constitutional: + fatigue; no fever and no chills Eyes: no diplopia and no spots in vision Respiratory: + cough; no dyspnea and no wheezing Cardiovascular: no chest pain, no orthopnea, no palpitations and no edema Gastrointestinal: no nausea and no vomiting Physical Exam Constitutional: well developed, + thin, + frail appearing, + disheveled, cooperative and + malnourished Eyes: PERRL, conjunctivae normal, anicteric sclerae Respiratory: + abnormal respiratory effort, no retractions, no dullness to percussion and no cough Auscultation: + diminished lung sounds; no crackles, no wheezes and no pleural rub Cardiovascular: RRR, no murmur, no edema Gastrointestinal (Abdomen): normal bowel sounds, soft, nontender, no hepatosplenomegaly Results & Data Vital Signs (Past 12 Hours) Vital Signs Temp Pulse Pulse Resp BP BP Pulse Ox 04/19/19 08:00 36.8 C 69 18 109/69 96 04/19/19 06:57 72 18 93 04/19/19 03:49 36.6 C 92 H 18 104/62 91 04/19/19 03:09 88 18 82 L 04/19/19 00:16 98 H 04/18/19 23:11 36.8 C 101 H 20 105/65 91 04/18/19 23:00 98 H 18 95 Laboratory Results 04/19/19 04/19/19 Range/Units 05:29 05:29 WBC 12.86 H (4.8-10.8) K/uL RBC 3.60 L (4.2-5.4) M/uL Hgb 10.0 L (12.0-16.0) g/dL Hct 31.9 L (37-47) % MCV 88.6 (80-100) fL MCH 27.8 (25-34) pg MCHC 31.3 L (32-36) g/dL RDW Std Deviation 49.3 H (36.4-46.3) fL RDW Coeff of Abhishek 15.2 H (11.5-14.5) % Plt Count 290 (130-400) K/uL MPV 9.1 (7.4-10.4) fL Immature Gran % (Auto) 0.3 % Neut % (Auto) 90.2 % Lymph % (Auto) 7.7 % Banks % (Auto) 1.8 % Eos % (Auto) 0.0 % Baso % (Auto) 0.0 % Immature Gran # (Auto) 0.04 H (0.00-0.02) K/uL Neut # (Auto) 11.60 H (1.4-6.5) K/uL Lymph # (Auto) 0.99 L (1.2-3.4) K/uL Banks # (Auto) 0.23 (0.11-0.59) K/uL Eos # (Auto) 0.00 (0-0.5) K/uL Baso # (Auto) 0.00 (0-0.2) K/uL Sodium 144 (136-145) mmol/L Potassium 4.1 (3.5-5.1) mmol/L Chloride 113 H (98-107) mmol/L Carbon Dioxide 28 (21-32) mmol/L Anion Gap 3.0 (3-11) BUN 8 (7-18) mg/dl Creatinine 0.35 L (0.6-1.2) mg/dl Est Cr Clr Drug Dosing 132.8 ml/min Est GFR ( Amer) > 150.0 Est GFR (Non-Af Amer) 133.3 BUN/Creatinine Ratio 21.8 H (10-20) Glucose 121 H (70-99) mg/dl Calcium 8.9 (8.5-10.1) mg/dl Total Bilirubin 0.2 (0.2-1) mg/dl AST 15 (15-37) U/L ALT 41 (12-78) U/L Alkaline Phosphatase 224 H (45-117) U/L Total Protein 5.9 L (6.4-8.2) gm/dl Albumin 2.4 L (3.4-5.0) gm/dl Globulin 3.5 (2.5-4.0) gm/dl Albumin/Globulin Ratio 0.7 L (0.9-2) Medications Administered Current Inpatient Medications Acetaminophen (Tylenol) 650 mg PO Q4H PRN PRN Reason: Pain or Fever Stop: 05/17/19 19:53 Al Hydrox/Mg Hydrox/Simethicone (Maalox) 15 ml PO Q4H PRN PRN Reason: Dyspepsia Stop: 05/17/19 19:53 Albuterol (Ventolin Hfa) 2 puffs INH QID PRN PRN Reason: Shortness Of Breath Stop: 05/17/19 19:53 Albuterol (Duoneb) 3 ml NEB Q4R [facility] Stop: 05/17/19 22:59 Last Admin: 04/19/19 10:57 Dose: 3 ml Documented by: Atropine Sulfate (Atropine Sulfate) 0.5 mg IV Q1M PRN PRN Reason: PACU Use-HR<40 &/or Bradycardi Stop: 04/19/19 16:49 Azithromycin (Zithromax) 250 mg PO QAM [facility] Stop: 04/25/19 08:59 Last Admin: 04/18/19 08:57 Dose: 250 mg Documented by: Bupropion HCl (Wellbutrin-Sr) 150 mg PO DAILY [facility] Stop: 05/18/19 10:59 Last Admin: 04/18/19 11:44 Dose: 150 mg Documented by: Enoxaparin Sodium (Lovenox) 40 mg SQ QAM [facility] Stop: 05/18/19 08:59 Last Admin: 04/19/19 13:03 Dose: 40 mg Documented by: Ephedrine Sulfate (Ephedrine Sulfate) 5 mg IV Q5M PRN PRN Reason: PACU Use Only-SBP<90 mmHg Stop: 04/19/19 16:49 Sodium Chloride (Nss 1000ml) 1,000 mls @ 80 mls/hr IV .[id number] [facility] Stop: 05/17/19 19:53 Last Admin: 04/18/19 23:24 Dose: 80 mls/hr Documented by: Ceftriaxone Sodium 1,000 mg/ (Dextrose) 60 mls @ 100 mls/hr IV DAILY [facility]; Protocol Stop: 04/24/19 08:59 Last Infusion: 04/19/19 10:20 Dose: Infused Documented by: Magnesium Hydroxide (Milk Of Magnesia) 30 ml PO Q12H PRN PRN Reason: Constipation Stop: 05/17/19 19:53 Miscellaneous (Remove Nicoderm Patch) 1 ea N/A DAILY@2058 [facility] Stop: 05/18/19 20:58 Last Admin: 04/18/19 21:38 Dose: 1 ea Documented by: Nicotine (Nicoderm Cq) 21 mg TD HS [facility] Stop: 05/17/19 20:59 Last Admin: 04/18/19 21:39 Dose: 21 mg Documented by: Polyethylene Glycol (Miralax Powder Packet) 17 gm PO DAILY PRN PRN Reason: Constipation Stop: 05/17/19 19:53 Prednisone (Prednisone) 40 mg PO DAILY [facility] Stop: 04/22/19 09:01 Fluticasone/Salmeterol (Advair Diskus 100/50) 1 puffs INH BID [facility] Stop: 05/18/19 20:59 Last Admin: 04/19/19 09:48 Dose: 1 puffs Documented by: Tiotropium [place] (Spiriva) 1 puffs INH QAM [facility] Stop: 05/18/19 10:59 Last Admin: 04/19/19 09:48 Dose: 1 puffs Documented by: Resident Activity Tracking Resident Involvement: Resident Care Provided Care Provided: Adult [facility]
[2019-04-19] MEDS: cefTRIAXone SODIUM 1,000 MG in DEXTROSE 5% 50 ML IV SCH (09:44)
[2019-04-19] MEDS: TIOTROPIUM BROMIDE 5 PUFF/90 MCG INH INH SCH (09:48)
[2019-04-19] MEDS: FLUTICASONE/SALMETEROL 100/50 (ADVAIR) 14 PUFF/1 INHALER INH SCH ×2 (09:48→20:05)
--- NOTE | 2019-04-19 11:48 | Anesthesiology Consultation ---
Date of Service April 19, 2019 Assessment & Plan (1) Encounter for pre-operative examination: Chart Review Chart Review: Acceptable Risk for Surgery and Patient NOT seen in Pre Admission Testing Consults Requested none History Surgery Operation Date: 04/19/19 17:45 Proposed Procedures p Esophagogastroduodenoscopy Dr. Shanice Prasad MD Height/Weight Height: 5 ft 4 in Weight: 40.6 kg Allergies Allergy/AdvReac Type Severity Reaction Status Date / Time No Known Allergies Allergy Verified 04/17/19 15:16 Medications Home Medications Medication Instructions Recorded Confirmed Last Taken albuterol sulfate 2 puff INHALATION QID PRN 02/08/18 04/17/19 09/21/18 Active Medications Generic Name Dose Route Start Last Admin Trade Name Freq PRN Reason Stop Dose Admin Albuterol 3 ml 04/17/19 23:00 04/19/19 10:57 Duoneb NEB 05/17/19 22:59 3 ml Q4R [facility] Administration Azithromycin 250 mg 04/18/19 09:00 04/18/19 08:57 Zithromax PO 04/25/19 08:59 250 mg QAM [facility] Administration Bupropion HCl 150 mg 04/18/19 11:00 04/18/19 11:44 Wellbutrin-Sr PO 05/18/19 10:59 150 mg DAILY [facility] Administration Enoxaparin Sodium 40 mg 04/18/19 09:00 04/18/19 08:56 Lovenox SQ 05/18/19 08:59 40 mg QAM [facility] Administration Sodium Chloride 1,000 mls @ 80 mls/hr 04/17/19 19:54 04/18/19 23:24 Nss 1000ml IV 05/17/19 19:53 80 mls/hr .[id number] [facility] Administration Ceftriaxone Sodium 1,000 mg/ 60 mls @ 100 mls/hr 04/18/19 09:00 04/19/19 10:20 Dextrose IV 04/24/19 08:59 Infused DAILY [facility] Infusion Protocol Miscellaneous 1 ea 04/18/19 20:59 04/18/19 21:38 Remove Nicoderm Patch N/A 05/18/19 20:58 1 ea DAILY@2058 [facility] Administration Nicotine 21 mg 04/17/19 21:00 04/18/19 21:39 Nicoderm Cq TD 05/17/19 20:59 21 mg HS [facility] Administration Fluticasone/Salmeterol 1 puffs 04/18/19 21:00 04/19/19 09:48 Advair Diskus 100/50 INH 05/18/19 20:59 1 puffs BID [facility] Administration Tiotropium [place] 1 puffs 04/18/19 11:00 04/19/19 09:48 Spiriva INH 05/18/19 10:59 1 puffs QAM [facility] Administration NPO Date Last Intake of Fluids: 04/17/19 Time Last Intake of Fluids: 15:00 Date Last Intake of Solids: 04/17/19 Time Last Intake of Solids: 15:00 Past Medical History Medical History Anxiety (Chronic) Arthritis (Chronic) Constipation (Chronic) COPD (chronic obstructive pulmonary disease) (Chronic) Depression (Chronic) Difficulty chewing (Resolved) Difficulty swallowing (Resolved) Marijuana smoker (Chronic) Ovarian cyst (Resolved) Poor dentition (Chronic) Scoliosis (Chronic) Tobacco abuse (Chronic) Past Family History Family History Other Family history non-contributory Past Surgical History Surgical History History of esophagogastroduodenoscopy (EGD) (Resolved) Social History Smoking Status: Current every day smoker tobacco type: cigarettes Smoking cigarettes per day: 1 PACK/DAY Hx Alcohol Use: No Hx Substance Use: No Physical Exam Vital Signs Last Vital Signs Temp 36.7 C 04/19/19 11:36 Pulse 100 H 04/19/19 11:36 Resp 16 04/19/19 11:36 BP 109/75 04/19/19 11:36 Pulse Ox 92 04/19/19 11:36 Testing Laboratory Results 04/19/19 05:29 04/19/19 05:29 04/17/19 16:52 Aerobic Blood Culture - Preliminary Blood No growth in Aerobic bottle after 24 hours. Anaerobic Blood Culture - Preliminary No growth in Anaerobic bottle after 24 hours. 04/17/19 16:45 Aerobic Blood Culture - Preliminary Blood No growth in Aerobic bottle after 24 hours. Anaerobic Blood Culture - Preliminary No growth in Anaerobic bottle after 24 hours.
[2019-04-19] MEDS ORDERED: ePHEDrine sulfate 50 MG/ML AMP IV PRN (11:49)
[2019-04-19] MEDS ORDERED: ATROPINE SULFATE 0.1 MG/ML 10ML SYR IV PRN (11:49)
--- NOTE | 2019-04-19 11:58 | History & Physical Bridge Note ---
Date of Service April 19, 2019 History & Physical Bridge Note I have examined the patient, reviewed the History & Physical and in the interval since the performance of the History & Physical I have noted the following changes of clinical significance: no changes noted Proceed with EGD. risks/benefits and procedure discussed with patient, who agrees to proceed
[2019-04-19] MEDS ORDERED: PROPOFOL IV EMULSION 10 MG/ML 20 ML VIAL IV ONE (12:23)
[2019-04-19] MEDS ORDERED: LIDOCAINE HCL 2% 2 ML VIAL/AMP(20MG/ML) INFIL ONE (12:23)
--- NOTE | 2019-04-19 12:29 | Communication Note ---
Date of Service: April 19, 2019 GI brief note post EGD findings: minimal if any peristalsis is noted in the esophagus, consistent with possible autoimmune disease (can be seen in scleroderma). No structural masses nor any strictures present. Copious mucus secretions suctioned out from esophagus and stomach and mouth. Otherwise normal procedure. Recs: --NPO at this time --will need esophageal manometry as an outpatient for definitive diagnosis --rest as per primary team
--- NOTE | 2019-04-19 12:38 | GI REPORT ---
Patient Name: Loulou Pryor Procedure Date: 04/19/2019 12:01 PM Date of : 1975 Admit Type: Inpatient Age: 43 Gender: Female Attending MD: Fracisco Prasad MD Procedure: Upper GI endoscopy Providers: Fracisco Prasad MD Referring MD: Jassi Suarez Indications: Dysphagia Medicines: Monitored Anesthesia Care Complications: No immediate complications. Estimated blood loss: None. Estimated Blood Loss: Estimated blood loss: none. Procedure: Pre-Anesthesia Assessment: - Prior Anticoagulants: The patient has taken no previous anticoagulant or antiplatelet agents. - ASA Grade Assessment: IV - A patient with severe systemic disease that is a constant threat to life. After obtaining informed consent, the endoscope was passed under direct vision. Throughout the procedure, the patient's blood pressure, pulse, and oxygen saturations were monitored continuously. The Endoscope was introduced through the mouth, and advanced to the second part of duodenum. The upper GI endoscopy was accomplished without difficulty. The patient tolerated the procedure well. Findings: There is no endoscopic evidence of hiatal hernia, inflammation or stricture in the entire esophagus. The esophagus exhibited minimal if any peristalsis, consistent with possible autoimmune disease i.e. scleroderma The entire examined stomach was normal. The duodenal bulb and second portion of the duodenum were normal. Impression: - Normal stomach. - Normal duodenal bulb and second portion of the duodenum. - No specimens collected. Recommendation: - NPO today. -will need esophageal manometry as an outpatient for definitive diagnosis -rest of care as per primary team - [facility] patient to [facility] for ongoing care. Fracisco Prasad MD 04/19/2019 12:38:08 PM This report has been signed electronically. Note Initiated On: 04/19/2019 12:01 PM Number of Addenda: 0 I attest to the content of the Intraoperative Record and orders documented therein, exceptions below {[id number]}
--- NOTE | 2019-04-19 12:48 | Anesthesiology Progress Note ---
Date of Service April 19, 2019 Anesthesia Post Procedure Vital Signs Vital Signs: Temp Pulse Pulse Resp BP BP Pulse Ox 04/19/19 12:35 88 18 111/70 111/70 94 04/19/19 12:20 98 H 16 102/59 L 96 04/19/19 11:36 36.7 C 100 H 16 109/75 92 04/19/19 11:00 75 18 93 04/19/19 08:00 36.8 C 98 H 69 18 109/69 96 04/19/19 06:57 72 18 93 04/19/19 03:49 36.6 C 92 H 18 104/62 91 04/19/19 03:09 88 18 82 L 04/19/19 00:16 98 H 04/18/19 23:11 36.8 C 101 H 20 105/65 91 04/18/19 23:00 98 H 18 95 04/18/19 19:56 95 H 16 92 04/18/19 19:44 36.7 C 89 19 100/64 91 04/18/19 15:35 36.7 C 114 H 18 108/68 94 04/18/19 15:09 113 H 16 98 Transfer of Care Handoff Completed per policy Notes Mental Status: alert / awake / arousable Patient Amnestic to Procedure: Yes Nausea / Vomiting: adequately controlled Pain: adequately controlled Airway Patency, RR, SpO2: stable & adequate BP & HR: stable & adequate Hydration State: stable & adequate Anesthetic Complications: no major complications apparent and Pt Satisfied with anesthetic care
[2019-04-19] MEDS: ENOXAPARIN INJ 40 MG/0.4 ML SYR SQ SCH (13:03)
[2019-04-19] MEDS: BuPROPion SR 150 MG TABCR PO SCH (14:16)
[2019-04-19] MEDS: AZITHROMYCIN 250 MG in DEXTROSE 5% 250 ML IV SCH (14:57)
[2019-04-19] MEDS: D5W AND NSS 1,000 ML IV SCH (15:56)
[2019-04-19] MEDS: AZITHROMYCIN 250 MG TAB PO SCH (19:19)
[2019-04-19] MEDS: methylPREDNISolone 40 MG in SYRINGE 0 ML IV SCH (19:19)
[2019-04-19] MEDS: FAMOTIDINE 20 MG in SYRINGE 3 ML IV SCH (20:04)
[2019-04-19] MEDS: NICOTINE 21 MG/24 HR TDSY TD SCH (20:05)
[2019-04-20] MEDS: D5W AND NSS 1,000 ML IV SCH ×2 (03:30→14:56)
[2019-04-20] MEDS: ALBUT/IPRATROP 3MG/0.5MG NEB 3 ML VIAL NEB SCH ×6 (03:47→22:08)
[2019-04-20 06:45] LABS: Basophils # (auto) 0.01 K/uL (0-0.2); Basophils % (auto) 0.1 %; Eosinophils # (auto) 0.02 K/uL (0-0.5); Eosinophils % (auto) 0.2 %; Hemoglobin 9.8 g/dL (12.0-16.0); Immature Granulocytes # (auto) 0.02 K/uL (0.00-0.02); Immature Granulocytes % (auto) 0.2 %; Lymphocytes # (auto) 2.74 K/uL (1.2-3.4); Lymphocytes % (auto) 30.4 %; Mean Corpuscular Hemoglobin 27.4 pg (25-34); Mean Corpuscular Hgb Conc 30.6 g/dL (32-36); Mean Corpuscular Volume 89.4 fL (80-100); Mean Platelet Volume 9.2 fL (7.4-10.4); Monocytes # (auto) 0.53 K/uL (0.11-0.59); Monocytes % (auto) 5.9 %; Neutrophils # (auto) 5.69 K/uL (1.4-6.5); Neutrophils % (auto) 63.2 %; Platelet Count 290 K/uL (130-400); RDW Coefficient of Variation 15.2 % (11.5-14.5); RDW Standard Deviation 49.9 fL (36.4-46.3); Red Blood Count 3.58 M/uL (4.2-5.4); White Blood Count 9.01 K/uL (4.8-10.8)
[2019-04-20 07:29] LABS: Albumin Level 2.4 gm/dl (3.4-5.0); Aspartate Aminotransferase 15 U/L (15-37); BUN Creatinine Ratio 15.8 (10-20); Blood Urea Nitrogen 5 mg/dl (7-18); Calcium 8.8 mg/dl (8.5-10.1); Carbon Dioxide 28 mmol/L (21-32); Chloride 112 mmol/L (98-107); Creatinine Clr Calc Pharmacy 156.5 ml/min; Est GFR (African American) > 150.0; Est GFR (Non-African American) 140.2; Glucose 84 mg/dl (70-99); Potassium 3.3 mmol/L (3.5-5.1); Sodium 143 mmol/L (136-145)
[2019-04-20 07:35] LABS: Alanine Aminotransferase 30 U/L (12-78); Albumin Globulin Ratio 0.7 (0.9-2); Alkaline Phosphatase 182 U/L (45-117); Bilirubin,Total 0.3 mg/dl (0.2-1); Globulin 3.3 gm/dl (2.5-4.0); Total Protein 5.7 gm/dl (6.4-8.2)
--- NOTE | 2019-04-20 08:01 | Pulmonology Progress Note ---
Date of Service April 20, 2019 Assessment & Plan (1) Acute respiratory failure: --Acute hypoxic respiratory failure Secondary to likely multilobar aspiration pneumonia There is also segmental collapse of the right lower lobe B6 segment Patient is likely aspirating food this could be in part because of dilated esophagus and in part due to her using marijuana. Complete the course of antibiotics for total of 5 days., chest PT, incentive spirometry, Swallow evaluation: Confirmed aspiration Transition to p.o. prednisone 40 mg for 2 days then stop Continue with inhaled bronchodilators. Patient is too young to have COPD. On PFTs done in 2017 she had hyperinflation which could be in part secondary to underlying asthma on top of smoking. Patient denies any history of alpha-1 or cystic fibrosis in the family. GI on board for dilated esophagus. Follow-up recommendations Given her marfanoid status, and thin long fingers will get autoimmune work-up to make sure dilation of esophagus does not be secondary to an underlying autoimmune entity. Work-up for immunodeficiency could also be thought of. Pulmonary status duarte patient seems to be doing better. She is comfortable saturating well on room air. Would continue with chest PT continue course of antibiotics for 5 days and follow-up recommendations from GI. She needs to follow-up with pulmonary in couple weeks. Importance of not using marijuana explained to the patient. She will be on Breo and Incruse at the time of discharge. Pulmonary will sign off. Recall if needed. -- Active smoker Advised to quit Continue with nicotine transdermal patch -- Active marijuana use Advised to quit (2) Aspiration into lower respiratory tract: (3) Dilation of esophagus: (4) Poor dentition: (5) Marijuana smoker: (6) Tobacco abuse: Subjective Patient seen and examined at bedside. No acute distress, no adverse events overnight. Patient says that that shortness of breath is improved significantly. She is feeling much better. Bringing up clear phlegm. No hemoptysis, no headache, no chest pain, no nausea or vomiting. Patient is n.p.o. right now as per recommendation of GI. Denies any dizziness. No dysuria. At the time of examination patient was saturating 98% on room air with heart rate of 62 at rest. Review of Systems Review of Systems: All systems reviewed & are unremarkable except as noted in HPI & below Physical Exam Physical Exam: Constitutional: No acute distress, cachectic, temporal wasting HEENT: EOMI, PERRLA, poor dentition Respiratory system: Decreased air entry bilaterally, minimal crackles bilateral lower lobes, no wheeze, no rhonchi CVS: S1-S2 positive, no murmurs or gallops Abdomen: Soft, epigastric tenderness, no rebound, nondistended, positive bowel sounds x4 Extremities: +2 pulses bilaterally radialis/ dorsalis pedis, no cyanosis, no edema Neuro: Awake alert oriented x3 Psych: Normal mood and affect G/U: No Howard Constitutional: + ill appearing, + frail appearing and + malnourished Eyes: PERRL, conjunctivae normal, anicteric sclerae ENMT: external ear and nose normal, oropharynx normal (Poor dentition) Gastrointestinal (Abdomen): normal bowel sounds, soft, nontender, no hepatosplenomegaly Inspection/Auscultation: abdomen normal to inspection and normal bowel sounds Percussion/Palpation: no guarding, abdomen not rigid and no hepatomegaly Skin: no rashes, warm and dry Lymphatic: no cervical or axillary lymphadenopathy Results & Data Vital Signs (Past 12 Hours) Vital Signs Temp Pulse Pulse Resp BP BP Pulse Ox 04/20/19 07:10 36.5 C 58 L 20 93/59 L 96 04/20/19 03:40 36.4 C L 57 L 16 91/51 L 94 04/20/19 00:06 36.9 C 68 17 92/53 L 94 04/19/19 23:08 66 PG Care Time/CCT Total # of Minutes Spent Total Time Spent with Patient: Total time spent is greater than 50% in coordination of care (as documented) at patient's floor/unit and/or counseling patient:
[2019-04-20] MEDS: cefTRIAXone SODIUM 1,000 MG in DEXTROSE 5% 50 ML IV SCH (08:49)
[2019-04-20] MEDS: AZITHROMYCIN 250 MG in DEXTROSE 5% 250 ML IV SCH (08:49)
[2019-04-20] MEDS: ENOXAPARIN INJ 40 MG/0.4 ML SYR SQ SCH (08:49)
[2019-04-20] MEDS: FAMOTIDINE 20 MG in SYRINGE 3 ML IV SCH ×2 (08:50→20:12)
[2019-04-20] MEDS: TIOTROPIUM BROMIDE 5 PUFF/90 MCG INH INH SCH (08:50)
[2019-04-20] MEDS: FLUTICASONE/SALMETEROL 100/50 (ADVAIR) 14 PUFF/1 INHALER INH SCH ×2 (08:51→20:05)
[2019-04-20] MEDS: BuPROPion SR 150 MG TABCR PO SCH (08:51)
[2019-04-20] MEDS ORDERED: methylPREDNISolone 40 MG in SYRINGE 0 ML IV SCH (09:00)
[2019-04-20] MEDS ORDERED: predniSONE 20 MG TAB PO SCH (09:00)
[2019-04-20] MEDS ORDERED: AZITHROMYCIN 250 MG in DEXTROSE 5% 250 ML IV SCH (09:00)
--- NOTE | 2019-04-20 10:32 | Hospitalist Progress Note ---
Date of Service April 20, 2019 Assessment & Plan (1) Acute respiratory failure: Acute hypoxic respiratory failure: - this all seems likely 2/2 the esophageal dysmotility, and subsequent aspiration of oropharyngeal contents - CT scan, swallow study, and EGD demonstrated high propensity for aspiration given lack of esophageal motion - patient will remain NPO at this time, if no improvement then patient will likely benefit from alternative feeding options (NJ tube) - receiving PPN today, but will attempt placement of NG tube tomorrow with goal of advancement into jejunum tomorrow. - If patient is unable to have NJ tube placed with fluoro-guided advancement then she would need to be transferred to another facility for IR assistance in NJ placement - patient will need esophageal manometry for the confirmation of the lack of motility of the esophagus - Continued Albuterol PRN; continued Advair diskus and Spiriva, as these are closest to what she will be covered for insurance duarte after discharge (Breo Ellipta 100-25 1 puff daily, and Incruse Ellipta 62.5 1 puff daily) - will continue abx; discontinued steroids - CT scan demonstrated: food debris in trachea, and bronchiectasis of the left lower lobe. - Swallow Study: demonstrated high propensity for aspiration given diminished swallow motion and high retention in oropharnyx/pharynx - severe protein calorie mal-nutrition - Consulted Pulm: advised auto-immune work-up for Scleroderma/CREST/Chagas - Consulted GI: EGD demonstrated decreased motility suspicious for auto-immune disease (scleroderma/CREST) - awaiting results of auto-immune antibodies Urinary retention: - patient complained of consistent urge to urinate throughout the day today - urinating several times an hour - post void bladder scanned at 1500, demonstrating >500mL (nursing removed 700 with straight cath) - will attempt repeat bladder scan at 2300, and subsequent straight cath if increased again - if patient continues to retain then will need layne catheter placed - potentially 2/2 systemic development of scleroderma limiting bladder contraction Diet: NPO, will receive PPN Code: Full DVT PPx: SCDs (2) Aspiration into lower respiratory tract: (3) Dilation of esophagus: (4) Poor dentition: (5) Tobacco abuse: (6) Severe protein-calorie malnutrition: (7) Hypokalemia: (8) Bilateral pneumonia: Supervising Physician Co-Signing Physician Notes Resident Physician Supervision Note: I was present with Dr. Rl Fang during the history and exam. I discussed the case with the resident and agree with the findings and plan as documented in the note. Any exceptions or clarifications are listed here: none. 43yo female with history of COPD (records indicate FEV1 43%) who presented with b/l lower lobe pneumonia. On CT chest her esophagus was severely dilated and debris was seen in the trachea. All of this was concerning for aspiration pneumonia from an abnormal esophagus. Seen by speech; video swallow performed; aspiration confirmed. Seen by [facility] GI - EGD performed - minimal to no peristalsis was seen throughout the esophagus. Highly suggestive of autoimmune disease. During bedside rounds today the patient's significant other of 10 years was present. He was quite upset about the current circumstances. He alluded to being frustrated about her prior hospital stays (2017 and 2018 for pneumonia) and why we as an institution did not find her swallowing problem then. I reviewed her 2018 hospital stay discharge summary and there was no mention of dysphagia during that stay. I told the patient and her boyfriend that we could not tell how long the esophagus problem had been present. The patient herself could not pinpoint any specific date or length of time her swallowing issues had been present. Pt's significant other also seemed upset that we hadn't consulted additional physicians regarding her care. However, I explained that we had been in constant discussion with speech therapy, Dr Prasad from GI, and pulmonary regarding her care. I also explained that the EGD had just been completed by yesterday afternoon and that we were attempting to formulate the best plan forward for her. I explained her situation was quite unique, complicated and not common for someone her age. The patient's significant other at one point asked if we could obtain a 2nd opinion regarding her care. I told them that I was happy to do that and inquired which hospital they desired for me to call. Ultimately they asked that I call [facility]. I informed them that if [facility] felt she should be transferred to their hospital that we would do that for her. I called and spoke to a Dr Claudia Gardner from the GI department at [facility]. I explained her EGD findings and the CT findings re: her esophagus. He agreed that autoimmune disease was possible. Achalasia was also still on differential. He stated that if she was at [facility] she would have an N-J tube placed under IR-guidance by their IR department. Enteral nutrition would be initiated, and she would be d/c home. Then, as an outpatient, esophageal manometry would be pursued. The results would confirm/suggest the diagnosis and the ultimate treatment plan. If our radiology dept was not successful at placing an N-J tube (or even N-D tube) then we could later transfer her to [facility] for that procedure. He did not suggest any other testing in the meantime. Myself and Dr Fang returned to the pt's room again. We discussed the contents of the phone call to [facility] with the pt and the pt's boyfriend. We explained the sequence of recommendations (ND or NJ tube placement, initiation of enteral feedings, then outpatient manometry, etc). The pt's significant other acknowledged that the recommendations from [facility] were very similar to what Az Akilah was recommending. Dr Fang explained that if our radiologist could not place an N-D or N-J tube under fluoro she would need transfer to tertiary care. They voiced understanding. We further explained that we would be starting PPN tonight for nutritional purposes. VSS O2 sats wnl in RA gen - cachetic, NAD mouth - poor dentition; MMM; no thrush heart - RRR, s1 s2 lungs - no wheeze; decreased BS bases abd - soft mildly distended lower abdomen BS+ musculo - generalized muscle wasting ext - no edema labs - hypokalemia; mild anemia A/P: 1. b/l lower lobe pneumonia - due to aspiration given the dysphagia and esophageal findings on CT/EGD. Cont IV rocephin/zithromax. Day #4 of each. Cannot give PO abx thus continue IV. 2. acute hypoxic resp failure - resolved. 2nd to #1 +/- asthma/COPD exacerbation. Latter also improved/resolved. Appreciate pulmonary consultation. Weaning steroids. 3. markedly dilated esophagus with resulting dysphagia and aspiration - s/p EGD - minimal to no peristalsis seen during the EGD. Highly concerning for autoimmune disease (e.g scleroderma). Autoimmune w/u has been dispatched (Scl-70 Ab, RF ab, MARY, etc); all labs pending. Appreciate GI consultation/recs. See above discussion regarding my phone call to the on-call [facility] GI physician at [facility] today. 4. dysphagia - maintain strict NPO status. Appreciate speech consultation & recs. Unlikely that dysphagia training will help current situation. Plan - attempt NJ coresafe placement tomorrow; Dr Fang spoke with radiology about this; radiologist is willing to try. If cannot get NJ tube then next best option is ND. If unable to get past the pylorus then patient would need transfer to [facility] for IR NJ tube placement. PPN in meantime for nutrition. 5. FEN - start PPN; appreciate pharmacy assistance. 6. tobacco dependence - nicoderm. 7. severe protein calorie malnutrition - see #5 above. 8. DVT proph - lovenox. 9. low k - replace 10. mild anemia - 2nd to phlebotomy but consider b12/folate/iron studies given malnutrition. Discussed plan of care with RN as well as charge nurse. Will also ask Service Excellence to be involved tomorrow. Total time today over several visits - 75 minutes. Following 2nd visit to bedside (after phone call with [facility]) pt's significant other seemed satisfied with plan of care. Documented By: Jassi Suarez MD Subjective Patient tolerated the supplementation we did overnight well; in the morning did not want to further pursue alternative feeding options as she wanted to see if work with speech therapy today would improve function of her esophagus, but indicated that if this did not demonstrate improvement that she would be open to discussing the alternative feeding options at that time. After discusssions with speech therapy, patient and family indicated that they were nervous about the limited information that could confirm the diagnosis at this time, and asked that the team [facility] to ensure that all the steps were being done, or if there was a need for transfer for resources not available at [facility]. In discussions with [facility], the main stay diagnostically for this form of esophageal dysmotility would be to have outpatient esophageal manometry; but until that time patient would benefit from placement of a temporary feeding tube (NJ to limit further reflux and aspiration, and the decompensation that results from this). Review of Systems Constitutional: no fever, no chills and no sweats Eyes: no diplopia and no spots in vision Respiratory: + cough, + change in sputum and + wheezing Cardiovascular: no chest pain, no orthopnea, no palpitations and no edema Gastrointestinal: no nausea and no vomiting Genitourinary: + difficulty urinating, + urinary hesitancy and + urinary urgency Physical Exam Constitutional: well developed, + thin, + frail appearing, + disheveled, cooperative and + malnourished Eyes: PERRL, conjunctivae normal, anicteric sclerae Respiratory: + abnormal respiratory effort, no retractions, no dullness to percussion and no cough Auscultation: + diminished lung sounds; no crackles, no wheezes and no pleural rub Cardiovascular: RRR, no murmur, no edema Gastrointestinal (Abdomen): normal bowel sounds, soft, nontender, no hepatosplenomegaly Results & Data Vital Signs (Past 12 Hours) Vital Signs Temp Pulse Pulse Resp BP BP Pulse Ox 04/20/19 07:51 58 L 16 96 04/20/19 07:10 36.5 C 58 L 20 93/59 L 96 04/20/19 03:40 36.4 C L 57 L 16 91/51 L 94 04/20/19 00:06 36.9 C 68 17 92/53 L 94 04/19/19 23:08 66 Laboratory Results 04/20/19 04/20/19 04/20/19 Range/Units 05:59 05:59 05:59 WBC 9.01 (4.8-10.8) K/uL RBC 3.58 L (4.2-5.4) M/uL Hgb 9.8 L (12.0-16.0) g/dL Hct 32.0 L (37-47) % MCV 89.4 (80-100) fL MCH 27.4 (25-34) pg MCHC 30.6 L (32-36) g/dL RDW Std Deviation 49.9 H (36.4-46.3) fL RDW Coeff of Abhishek 15.2 H (11.5-14.5) % Plt Count 290 (130-400) K/uL MPV 9.2 (7.4-10.4) fL Immature Gran % (Auto) 0.2 % Neut % (Auto) 63.2 % Lymph % (Auto) 30.4 % [place] % (Auto) 5.9 % Eos % (Auto) 0.2 % Baso % (Auto) 0.1 % Immature Gran # (Auto) 0.02 (0.00-0.02) K/uL Neut # (Auto) 5.69 (1.4-6.5) K/uL Lymph # (Auto) 2.74 (1.2-3.4) K/uL [place] # (Auto) 0.53 (0.11-0.59) K/uL Eos # (Auto) 0.02 (0-0.5) K/uL Baso # (Auto) 0.01 (0-0.2) K/uL Sodium 143 (136-145) mmol/L Potassium 3.3 L D (3.5-5.1) mmol/L Chloride 112 H (98-107) mmol/L Carbon Dioxide 28 (21-32) mmol/L Anion Gap 3.0 (3-11) BUN 5 L (7-18) mg/dl Creatinine 0.30 L (0.6-1.2) mg/dl Est Cr Clr Drug Dosing 156.5 ml/min Est GFR ( Amer) > 150.0 Est GFR (Non-Af Amer) 140.2 BUN/Creatinine Ratio 15.8 (10-20) Glucose 84 (70-99) mg/dl Calcium 8.8 (8.5-10.1) mg/dl Phosphorus 2.1 L (2.5-4.9) mg/dl Magnesium 2.1 (1.8-2.4) mg/dl Total Bilirubin 0.3 (0.2-1) mg/dl AST 15 (15-37) U/L ALT 30 (12-78) U/L Alkaline Phosphatase 182 H (45-117) U/L Total Protein 5.7 L (6.4-8.2) gm/dl Albumin 2.4 L (3.4-5.0) gm/dl Globulin 3.3 (2.5-4.0) gm/dl Albumin/Globulin Ratio 0.7 L (0.9-2) Miscellaneous Test 04/20/19 Range/Units 05:59 WBC (4.8-10.8) K/uL RBC (4.2-5.4) M/uL Hgb (12.0-16.0) g/dL Hct (37-47) % MCV (80-100) fL MCH (25-34) pg MCHC (32-36) g/dL RDW Std Deviation (36.4-46.3) fL RDW Coeff of Abhishek (11.5-14.5) % Plt Count (130-400) K/uL MPV (7.4-10.4) fL Immature Gran % (Auto) % Neut % (Auto) % Lymph % (Auto) % [place] % (Auto) % Eos % (Auto) % Baso % (Auto) % Immature Gran # (Auto) (0.00-0.02) K/uL Neut # (Auto) (1.4-6.5) K/uL Lymph # (Auto) (1.2-3.4) K/uL [place] # (Auto) (0.11-0.59) K/uL Eos # (Auto) (0-0.5) K/uL Baso # (Auto) (0-0.2) K/uL Sodium (136-145) mmol/L Potassium (3.5-5.1) mmol/L Chloride (98-107) mmol/L Carbon Dioxide (21-32) mmol/L Anion Gap (3-11) BUN (7-18) mg/dl Creatinine (0.6-1.2) mg/dl Est Cr Clr Drug Dosing ml/min Est GFR ( Amer) Est GFR (Non-Af Amer) BUN/Creatinine Ratio (10-20) Glucose (70-99) mg/dl Calcium (8.5-10.1) mg/dl Phosphorus (2.5-4.9) mg/dl Magnesium (1.8-2.4) mg/dl Total Bilirubin (0.2-1) mg/dl AST (15-37) U/L ALT (12-78) U/L Alkaline Phosphatase (45-117) U/L Total Protein (6.4-8.2) gm/dl Albumin (3.4-5.0) gm/dl Globulin (2.5-4.0) gm/dl Albumin/Globulin Ratio (0.9-2) Miscellaneous Test Pending Medications Administered Current Inpatient Medications Acetaminophen (Tylenol) 650 mg PO Q4H PRN PRN Reason: Pain or Fever Stop: 05/17/19 19:53 Al Hydrox/Mg Hydrox/Simethicone (Maalox) 15 ml PO Q4H PRN PRN Reason: Dyspepsia Stop: 05/17/19 19:53 Albuterol (Ventolin Hfa) 2 puffs INH QID PRN PRN Reason: Shortness Of Breath Stop: 05/17/19 19:53 Albuterol (Duoneb) 3 ml NEB Q4R [facility] Stop: 05/17/19 22:59 Last Admin: 04/20/19 11:34 Dose: 3 ml Documented by: Enoxaparin Sodium (Lovenox) 40 mg SQ QAM [facility] Stop: 05/18/19 08:59 Last Admin: 04/20/19 08:49 Dose: 40 mg Documented by: Ceftriaxone Sodium 1,000 mg/ (Dextrose) 60 mls @ 100 mls/hr IV DAILY [facility]; Protocol Stop: 04/24/19 08:59 Last Infusion: 04/20/19 09:28 Dose: Infused Documented by: Methylprednisolone 40 mg/ (Syringe) 0.64 mls @ 1.5 mls/min IV QAM [facility] Stop: 05/20/19 08:59 Last Admin: 04/20/19 08:51 Dose: 1.5 mls/min Documented by: Famotidine 20 mg/ Syringe 5 mls @ 2.5 mls/min IV BID [facility] Stop: 05/19/19 20:59 Last Admin: 04/20/19 08:50 Dose: 2.5 mls/min Documented by: Azithromycin 250 mg/ Dextrose 252.5 mls @ 125 mls/hr IV QAM [facility] Stop: 04/26/19 14:29 Last Infusion: 04/20/19 10:55 Dose: Infused Documented by: Dextrose/Sodium Chloride (D5w And Nss) 1,000 mls @ 100 mls/hr IV .Q10H [facility] Stop: 04/20/19 15:59 Last Admin: 04/20/19 14:56 Dose: 80 mls/hr Documented by: Dextrose (D10w) 1,000 mls @ 0 mls/hr IV .Q0M [facility] Stop: 05/20/19 15:59 Nutrition (Parenteral) 2,000 (ml/ TPN BAG) 2,000 mls @ 1 mls/hr IV .Q24H [facility]; Protocol Stop: 04/21/19 15:59 Magnesium Hydroxide (Milk Of Magnesia) 30 ml PO Q12H PRN PRN Reason: Constipation Stop: 05/17/19 19:53 Miscellaneous (Remove Nicoderm Patch) 1 ea N/A DAILY@2058 [facility] Stop: 05/18/19 20:58 Last Admin: 04/19/19 20:05 Dose: 1 ea Documented by: Miscellaneous Information (Pharmacy Tpn/Ppn Consult Active) 1 ea N/A UD PRN PRN Reason: Consult Stop: 05/20/19 10:42 Nicotine (Nicoderm Cq) 21 mg TD HS [facility] Stop: 05/17/19 20:59 Last Admin: 04/19/19 20:05 Dose: 21 mg Documented by: Polyethylene Glycol (Miralax Powder Packet) 17 gm PO DAILY PRN PRN Reason: Constipation Stop: 05/17/19 19:53 Fluticasone/Salmeterol (Advair Diskus 100/50) 1 puffs INH BID [facility] Stop: 05/18/19 20:59 Last Admin: 04/20/19 08:51 Dose: 1 puffs Documented by: Tiotropium [place] (Spiriva) 1 puffs INH QAM [facility] Stop: 05/18/19 10:59 Last Admin: 04/20/19 08:50 Dose: 1 puffs Documented by: Resident Activity Tracking Resident Involvement: Resident Care Provided Care Provided: Adult Hospital Medicine (1) Bilateral pneumonia Pneumonia type: aspiration pneumonia Aspiration pneumonia type: unspecified Lung location: lower lobe of lung Qualified Code(s): J69.0 - Pneumonitis due to inhalation of food and vomit
[2019-04-20] MEDS ORDERED: TPN/PPN CONSULT PHARMACY PRN (10:43)
[2019-04-20 11:03] LABS: Magnesium 2.1 mg/dl (1.8-2.4); Phosphorus 2.1 mg/dl (2.5-4.9)
[2019-04-20] MEDS: POTASSIUM CHLORIDE / WTR 10 MEQ/100 ML PLCT IV SCH ×2 (12:00→13:05)
--- NOTE | 2019-04-20 12:24 | Pharmacy Report ---
Pharmacy PN Initial Consult - Date of Service April 20, 2019 - Scope Pharmacy has been consulted to manage parenteral nutrition orders and order appropriate labs. As part of the Nutrition Support Team guidelines, pharmacy will work in conjunction with dietary when determining the patients caloric needs. - Subjective The patient is a 43 year old F admitted on 04/17/19 18:38 for SOB, SEVERE COPD. Patient is to receive parenteral nutrition for severe malnutrition/ not a candidate for PEG at this time. Pertinent PMH: - Objective Height: 5 ft 4 in Weight: 41 kg Diet: NPO Intake & Output (Last 24Hrs): Intake & Output 04/18/19 04/19/19 04/20/19 04/21/19 06:59 06:59 06:59 06:59 Intake Total 365 / 365 2601.333 / 2601.333 2237.833 / 2237.833 312.5 / 312.5 Output Total 275 / 275 850 / 850 Balance 90 / 90 1751.333 / 1874.283 4384.833 / 2237.833 312.5 / 312.5 Weight 39.6 kg 40.6 kg 41 kg Laboratory Data (Last 24 Hrs):: 04/20/19 04/20/19 05:59 05:59 Sodium 143 Potassium 3.3 L D Chloride 112 H Carbon Dioxide 28 BUN 5 L Creatinine 0.30 L Glucose 84 Calcium 8.8 Phosphorus 2.1 L Magnesium 2.1 Total Bilirubin 0.3 AST 15 ALT 30 Alkaline Phosphatase 182 H Albumin 2.4 L Nutrition Assessment:: Please refer to the Notes section of the EMR for the most recent internet sales associate note. - Plan For day 1 of PN administration, the following will be ordered: Macronutrients Amino acids 75 grams/day Dextrose 100 grams/day Lipids 50 grams/day Micronutrients Combined electrolytes 20 mL - contains 35 mEq Na, 20 meq K, 4.5 mEq Ca, 5 mEq Mg, 35 mEq Cl, 29.5 mEq acetate per 20 mL Sodium phosphate 21 MMol Sodium chloride 40 mEq Sodium acetate 0 mEq Potassium phosphate 0 mMol Potassium chloride 20 mEq Potassium acetate 10 mEq Magnesium sulfate 0 mEq Calcium gluconate 0 mEq Multivitamins 10 mL Trace Elements 10 mL Additional additives: folic acid and thiamine Total volume 2000 mL to be infused over 24 hrs will provide 1140 kcal/day Final osmolarity 770 mOsm/L (maximum for PPN is 900 mOsm/L) Labs to be ordered per PN order protocol Pharmacy will follow and adjust parenteral nutrition orders on a daily basis. Thank you.
[2019-04-20] MEDS ORDERED: Custom Peripheral Pn 2,000 ML in TPN BAG 0 ML IV SCH (16:00)
[2019-04-20] MEDS ORDERED: DEXTROSE 10% 1,000 ML IV SCH (16:00)
--- NOTE | 2019-04-20 19:30 | Billing Data ---
Date of Service April 19, 2019 Coding Level of Care Code 26616 Subseq Hosp Care Lvl 3
--- NOTE | 2019-04-20 19:32 | Billing Data ---
Date of Service April 20, 2019 Coding Level of Care Code 79083 Subseq Hosp Care Lvl 3 (25 - SIGNIFICANT, SEPARATELY IDENTIFIABLE ) Time Spent (min) 75 Comment see separate bill for 04/20/19 for prolonged inpatient service, first hour.
--- NOTE | 2019-04-20 19:32 | Billing Data ---
Date of Service April 20, 2019 Coding Level of Care Code 12164 Prolonged Care (int'l) Time Spent (min) 75
[2019-04-20] MEDS: NICOTINE 21 MG/24 HR TDSY TD SCH (20:07)
[2019-04-21] MEDS: ALBUT/IPRATROP 3MG/0.5MG NEB 3 ML VIAL NEB SCH ×6 (02:46→23:17)
[2019-04-21 06:00] LABS: Basophils # (auto) 0.01 K/uL (0-0.2); Basophils % (auto) 0.1 %; Eosinophils # (auto) 0.03 K/uL (0-0.5); Eosinophils % (auto) 0.4 %; Hematocrit (blood only) 30.8 % (37-47); Hemoglobin 9.4 g/dL (12.0-16.0); Immature Granulocytes # (auto) 0.01 K/uL (0.00-0.02); Immature Granulocytes % (auto) 0.1 %; Lymphocytes # (auto) 2.99 K/uL (1.2-3.4); Lymphocytes % (auto) 38.4 %; Mean Corpuscular Hemoglobin 27.2 pg (25-34); Mean Corpuscular Hgb Conc 30.5 g/dL (32-36); Mean Platelet Volume 9.2 fL (7.4-10.4); Monocytes # (auto) 0.47 K/uL (0.11-0.59); Neutrophils # (auto) 4.27 K/uL (1.4-6.5); Platelet Count 290 K/uL (130-400); RDW Coefficient of Variation 15.3 % (11.5-14.5); RDW Standard Deviation 49.9 fL (36.4-46.3); Red Blood Count 3.46 M/uL (4.2-5.4); White Blood Count 7.78 K/uL (4.8-10.8)
[2019-04-21 06:23] LABS: Alanine Aminotransferase 27 U/L (12-78); Albumin Level 2.4 gm/dl (3.4-5.0); Aspartate Aminotransferase 10 U/L (15-37); BUN Creatinine Ratio 16.9 (10-20); Blood Urea Nitrogen 5 mg/dl (7-18); Calcium 8.4 mg/dl (8.5-10.1); Carbon Dioxide 30 mmol/L (21-32); Chloride 109 mmol/L (98-107); Creatinine Clr Calc Pharmacy 162.3 ml/min; Est GFR (African American) > 150.0; Est GFR (Non-African American) 141.8; Glucose 82 mg/dl (70-99); Magnesium 2.1 mg/dl (1.8-2.4); Potassium 3.3 mmol/L (3.5-5.1); Sodium 142 mmol/L (136-145)
[2019-04-21 06:33] LABS: Albumin Globulin Ratio 0.8 (0.9-2); Alkaline Phosphatase 165 U/L (45-117); Bilirubin,Total 0.2 mg/dl (0.2-1); Globulin 3.2 gm/dl (2.5-4.0); Phosphorus 2.7 mg/dl (2.5-4.9); Total Protein 5.6 gm/dl (6.4-8.2); Triglycerides 151 mg/dl (0-150)
--- NOTE | 2019-04-21 09:15 | Hospitalist Progress Note ---
Date of Service April 21, 2019 Assessment & Plan (1) Acute respiratory failure: Acute hypoxic respiratory failure: - this all seems likely 2/2 the esophageal dysmotility, and subsequent aspiration of oropharyngeal contents - CT scan, swallow study, and EGD demonstrated high propensity for aspiration given lack of esophageal motion - patient will remain NPO at this time, if no improvement then patient will likely benefit from alternative feeding options ([place] tube) - receiving PPN today, attempted placement of NG tube but was needed to be switched to Coresafe tube for further ability to direct tube past pylorus - - If patient is unable to have [place] tube placed with fluoro-guided advancement then she would need to be transferred to another facility for IR assistance in [place] placement - patient will need esophageal manometry outpatient for the confirmation of the lack of motility of the esophagus - Continued Albuterol PRN; continued Advair diskus and Spiriva, as these are closest to what she will be covered for insurance [place] after discharge (Breo Ellipta 100-25 1 puff daily, and Incruse Ellipta 62.5 1 puff daily) - will continue abx; discontinued steroids - CT scan demonstrated: food debris in trachea, and bronchiectasis of the left lower lobe. - Swallow Study: demonstrated high propensity for aspiration given diminished swallow motion and high retention in oropharnyx/pharynx - severe protein calorie mal-nutrition - Consulted Pulm: advised auto-immune work-up for Scleroderma/CREST/[place]ag[place] - Consulted GI: EGD demonstrated decreased motility suspicious for auto-immune disease (scleroderma/CREST) - awaiting results of auto-immune antibodies Urinary retention: - patient complained of consistent urge to urinate throughout the day yesterday; has not had any continued problems with urination; subsequent bladder scan yesterday at 2300 demonstrated 50mL remaining after urination - potentially 2/2 systemic development of scleroderma limiting bladder contraction; although resolution of this problem seems unlikely, making this more likely to have been due to an increase in sympathetic firing due to the stress of the recent diagnosis and discussion of the potential poor prognosis of her disease Diet: NPO, receiving PPN Code: Full DVT PPx: SCDs Supervising Physician Co-Signing Physician Notes Resident Physician Supervision Note: feeling ok now. coresafe in nose but by KUB only in stomach. dr raymundo d/w radiology - will follow for hopeful migration by peristalsis by morning - if not they'll try under fluoro. pt ok with this. feeling more calm with situation. no other acute complaints. vitals noted nad heent nc at mmm. NGT in place with no local skin breakdown. breathing unlabored no accessory muscles good effort. skin no rashes no pallor or icterus. no focal neuro deficits. ongoing poor dentition. A/P: 1. b/l lower lobe pneumonia - due to aspiration given the dysphagia and esophageal findings on CT/EGD. Cont IV abx - pneumonia improving but high risk to aspirate of abx were switched to PO - hence ongoing need for IV. 2. acute hypoxic resp failure - resolved. 2nd to #1 +/- asthma/COPD exacerbation. Latter also improved/resolved. continue inhalers and supportive care. 3. markedly dilated esophagus with resulting dysphagia and aspiration - s/p EGD - minimal to no peristalsis seen during the EGD. Highly concerning for autoimmune disease (e.g scleroderma). Autoimmune w/u has been dispatched (Scl-70 Ab, RF ab, MARY, etc); all labs p ending. Appreciate GI consultation/recs. 4. dysphagia - maintain strict NPO status. continue ppn for nutrition until NGT safely advanced to small bowel, then start tube feeds. might need IR to help w tube if unable to be advanced at this facility. 5. FEN - PPN for now; appreciate pharmacy assistance. tube feeds once in safe place to start 6. tobacco dependence - nicoderm. 7. severe protein calorie malnutrition - see #5 above. 8. DVT proph - lovenox. 9. COPD + exacerbation - inhalers, and otherwise as above. 10. mild anemia - 2nd to phlebotomy but consider b12/folate/iron studies given malnutrition. otherwise as above Subjective Patient continues to do well and improve from the perspective of breathing difficulty, at this point is anxious regarding the pending lab work, and about the prospective of having a feeding tube in forever. She expressed that it would just be easier to have something go through her skin and for that to provide the additional nutrition that she needs. After explanation of the need for this to be done in the short term until the outpatient testing could be conducted she expressed interest in have the feeding tube placed at this time Review of Systems Constitutional: no fever, no chills and no sweats Eyes: no diplopia and no spots in vision Respiratory: + cough; no dyspnea and no wheezing Cardiovascular: no chest pain, no palpitations and no edema Gastrointestinal: no nausea and no vomiting Genitourinary: no difficulty urinating, no urinary frequency, no urinary hesitancy and no urinary urgency Physical Exam Constitutional: well developed, + thin, + frail appearing, + disheveled, cooperative and + malnourished Eyes: PERRL, conjunctivae normal, anicteric sclerae Respiratory: + abnormal respiratory effort, no retractions, no dullness to percussion and no cough Auscultation: + diminished lung sounds; no crackles, no wheezes and no pleural rub Cardiovascular: RRR, no murmur, no edema Gastrointestinal (Abdomen): normal bowel sounds, soft, nontender, no hepatosplenomegaly Results & Data Vital Signs (Past 12 Hours) Vital Signs Temp Pulse Pulse Resp BP Pulse Ox 04/21/19 07:53 64 18 97 04/21/19 07:43 36.6 C 71 20 99/62 L 95 04/21/19 03:45 36.6 C 66 17 100/55 L 95 04/20/19 23:54 36.4 C L 70 17 109/66 96 04/20/19 22:54 89 Laboratory Results 04/21/19 04/21/19 04/21/19 Range/Units 11:33 06:06 05:26 WBC (4.8-10.8) K/uL RBC (4.2-5.4) M/uL Hgb (12.0-16.0) g/dL Hct (37-47) % MCV (80-100) fL MCH (25-34) pg MCHC (32-36) g/dL RDW Std Deviation (36.4-46.3) fL RDW Coeff of Abhishek (11.5-14.5) % Plt Count (130-400) K/uL MPV (7.4-10.4) fL Immature Gran % (Auto) % Neut % (Auto) % Lymph % (Auto) % [place] % (Auto) % Eos % (Auto) % Baso % (Auto) % Immature Gran # (Auto) (0.00-0.02) K/uL Neut # (Auto) (1.4-6.5) K/uL Lymph # (Auto) (1.2-3.4) K/uL [place] # (Auto) (0.11-0.59) K/uL Eos # (Auto) (0-0.5) K/uL Baso # (Auto) (0-0.2) K/uL Sodium 142 (136-145) mmol/L Potassium 3.3 L (3.5-5.1) mmol/L Chloride 109 H (98-107) mmol/L Carbon Dioxide 30 (21-32) mmol/L Anion Gap 3.0 (3-11) BUN 5 L (7-18) mg/dl Creatinine 0.29 L (0.6-1.2) mg/dl Est Cr Clr Drug Dosing 162.3 ml/min Est GFR ( Amer) > 150.0 Est GFR (Non-Af Amer) 141.8 BUN/Creatinine Ratio 16.9 (10-20) Glucose 82 (70-99) mg/dl POC Glucose 93 86 (70-99) Calcium 8.4 L (8.5-10.1) mg/dl Phosphorus 2.7 (2.5-4.9) mg/dl Magnesium 2.1 (1.8-2.4) mg/dl Total Bilirubin 0.2 (0.2-1) mg/dl AST 10 L (15-37) U/L ALT 27 (12-78) U/L Alkaline Phosphatase 165 H (45-117) U/L Total Protein 5.6 L (6.4-8.2) gm/dl Albumin 2.4 L (3.4-5.0) gm/dl Globulin 3.2 (2.5-4.0) gm/dl Albumin/Globulin Ratio 0.8 L (0.9-2) Triglycerides 151 H (0-150) mg/dl 04/21/19 04/20/19 Range/Units 05:26 22:43 WBC 7.78 (4.8-10.8) K/uL RBC 3.46 L (4.2-5.4) M/uL Hgb 9.4 L (12.0-16.0) g/dL Hct 30.8 L (37-47) % MCV 89.0 (80-100) fL MCH 27.2 (25-34) pg MCHC 30.5 L (32-36) g/dL RDW Std Deviation 49.9 H (36.4-46.3) fL RDW Coeff of Abhishek 15.3 H (11.5-14.5) % Plt Count 290 (130-400) K/uL MPV 9.2 (7.4-10.4) fL Immature Gran % (Auto) 0.1 % Neut % (Auto) 55.0 % Lymph % (Auto) 38.4 % [place] % (Auto) 6.0 % Eos % (Auto) 0.4 % Baso % (Auto) 0.1 % Immature Gran # (Auto) 0.01 (0.00-0.02) K/uL Neut # (Auto) 4.27 (1.4-6.5) K/uL Lymph # (Auto) 2.99 (1.2-3.4) K/uL [place] # (Auto) 0.47 (0.11-0.59) K/uL Eos # (Auto) 0.03 (0-0.5) K/uL Baso # (Auto) 0.01 (0-0.2) K/uL Sodium (136-145) mmol/L Potassium (3.5-5.1) mmol/L Chloride (98-107) mmol/L Carbon Dioxide (21-32) mmol/L Anion Gap (3-11) BUN (7-18) mg/dl Creatinine (0.6-1.2) mg/dl Est Cr Clr Drug Dosing ml/min Est GFR ( Amer) Est GFR (Non-Af Amer) BUN/Creatinine Ratio (10-20) Glucose (70-99) mg/dl POC Glucose 109 H (70-99) Calcium (8.5-10.1) mg/dl Phosphorus (2.5-4.9) mg/dl Magnesium (1.8-2.4) mg/dl Total Bilirubin (0.2-1) mg/dl AST (15-37) U/L ALT (12-78) U/L Alkaline Phosphatase (45-117) U/L Total Protein (6.4-8.2) gm/dl Albumin (3.4-5.0) gm/dl Globulin (2.5-4.0) gm/dl Albumin/Globulin Ratio (0.9-2) Triglycerides (0-150) mg/dl Medications Administered Current Inpatient Medications Acetaminophen (Tylenol) 650 mg PO Q4H PRN PRN Reason: Pain or Fever Stop: 05/17/19 19:53 Al Hydrox/Mg Hydrox/Simethicone (Maalox) 15 ml PO Q4H PRN PRN Reason: Dyspepsia Stop: 05/17/19 19:53 Albuterol (Ventolin Hfa) 2 puffs INH QID PRN PRN Reason: Shortness Of Breath Stop: 05/17/19 19:53 Albuterol (Duoneb) 3 ml NEB Q4R SARITA Stop: 05/17/19 22:59 Last Admin: 04/21/19 15:23 Dose: 3 ml Documented by: Enoxaparin Sodium (Lovenox) 40 mg SQ QAM [facility] Stop: 05/18/19 08:59 Last Admin: 04/21/19 09:38 Dose: 40 mg Documented by: Ceftriaxone Sodium 1,000 mg/ (Dextrose) 60 mls @ 100 mls/hr IV DAILY [facility]; Protocol Stop: 04/24/19 08:59 Last Infusion: 04/21/19 10:25 Dose: Infused Documented by: Famotidine 20 mg/ Syringe 5 mls @ 2.5 mls/min IV BID [facility] Stop: 05/19/19 20:59 Last Admin: 04/21/19 09:40 Dose: 2.5 mls/min Documented by: Azithromycin 250 mg/ Dextrose 252.5 mls @ 125 mls/hr IV QAM [facility] Stop: 04/26/19 14:29 Last Infusion: 04/21/19 13:02 Dose: Infused Documented by: Dextrose (D10w) 1,000 mls @ 0 mls/hr IV .Q0M [facility] Stop: 05/20/19 15:59 Nutrition (Parenteral) 2,000 (ml/ TPN BAG) 2,000 mls @ 1 mls/hr IV .Q24H [facility]; Protocol Stop: 04/21/19 15:59 Last Admin: 04/20/19 16:25 Dose: 83.3 mls/hr Documented by: Nutrition (Parenteral) 1,600 (ml/ TPN BAG) 1,600 mls @ 66.67 mls/hr IV .Q24H [facility]; Protocol Stop: 04/22/19 15:59 Magnesium Hydroxide (Milk Of Magnesia) 30 ml PO Q12H PRN PRN Reason: Constipation Stop: 05/17/19 19:53 Miscellaneous (Remove Nicoderm Patch) 1 ea N/A DAILY@2058 [facility] Stop: 05/18/19 20:58 Last Admin: 04/20/19 20:07 Dose: 1 ea Documented by: Miscellaneous Information (Pharmacy Tpn/Ppn Consult Active) 1 ea N/A UD PRN PRN Reason: Consult Stop: 05/20/19 10:42 Nicotine (Nicoderm Cq) 21 mg TD HS [facility] Stop: 05/17/19 20:59 Last Admin: 04/20/19 20:07 Dose: 21 mg Documented by: Polyethylene Glycol (Miralax Powder Packet) 17 gm PO DAILY PRN PRN Reason: Constipation Stop: 05/17/19 19:53 Fluticasone/Salmeterol (Advair Diskus 100/50) 1 puffs INH BID [facility] Stop: 05/18/19 20:59 Last Admin: 04/21/19 09:38 Dose: 1 puffs Documented by: Tiotropium [place] (Spiriva) 1 puffs INH QAM [facility] Stop: 05/18/19 10:59 Last Admin: 04/21/19 09:40 Dose: 1 puffs Documented by: Resident Activity Tracking Resident Involvement: Resident Care Provided Care Provided: Adult Hospital Medicine
[2019-04-21] MEDS: FLUTICASONE/SALMETEROL 100/50 (ADVAIR) 14 PUFF/1 INHALER INH SCH ×2 (09:38→21:25)
[2019-04-21] MEDS: ENOXAPARIN INJ 40 MG/0.4 ML SYR SQ SCH (09:38)
[2019-04-21] MEDS: cefTRIAXone SODIUM 1,000 MG in DEXTROSE 5% 50 ML IV SCH (09:39)
[2019-04-21] MEDS: FAMOTIDINE 20 MG in SYRINGE 3 ML IV SCH ×2 (09:40→21:25)
[2019-04-21] MEDS: TIOTROPIUM BROMIDE 5 PUFF/90 MCG INH INH SCH (09:40)
[2019-04-21] MEDS: AZITHROMYCIN 250 MG in DEXTROSE 5% 250 ML IV SCH (09:40)
--- NOTE | 2019-04-21 09:41 | XRay Report ---
XR KUB/Abdomen 1 view CLINICAL HISTORY: 43 years-old Female presenting with NG placement. TECHNIQUE: Single supine view of the upper abdomen was obtained. COMPARISON: CT from 02/08/2018 and plain radiograph from 03/18/2016. FINDINGS: Nasogastric tube terminates in the proximal stomach with sidehole within the distal esophagus. Nonobs tructive bowel gas pattern. Allowing for bowel gas and stool, no calcifications to suggest nephrolithiasis. Osseous structures normal. Lung bases clear. IMPRESSION: 1. Nasogastric tube terminates in the proximal stomach, sidehole in the distal esophagus; advancemen t recommended. ACT 112: Negative or not required by law. Electronically signed by: Gualberto Blancas M.D. 04/21/2019 9:40 AM
[2019-04-21] MEDS: POTASSIUM CHLORIDE / WTR 10 MEQ/100 ML PLCT IV SCH ×4 (11:32→17:57)
--- NOTE | 2019-04-21 12:22 | XRay Report ---
XR KUB/Abdomen 1 view CLINICAL HISTORY: 43 years-old Female presenting with coresafe placement - needs to be past pylorus. TECHNIQUE: Single supine view of the upper abdomen was obtained. COMPARISON: 04/21/2019 at 9:17 AM. FINDINGS: Interval removal of the nasogastric tube and placement of a weighted feeding catheter containing a gu idewire slightly retracted from the tip. The catheter terminates in the gastric fundus. Nonobstructiv e bowel gas pattern. No gross pneumoperitoneum. Oral contrast suggested in the descending colon. Numerous overlying external leads. Osseous structures normal. Lung bases clear. IMPRESSION: 1. Weighted feeding catheter containing guidewire terminates in the gastric fundus; advancement duncan mmended. ACT 112: Negative or not required by law. Electronically signed by: Gualberto Blancas M.D. 04/21/2019 12:21 PM
[2019-04-21] MEDS ORDERED: ACETAMINOPHEN 1,000 MG/100 ML VIAL IV ONE (13:03)
--- NOTE | 2019-04-21 13:22 | XRay Report ---
KUB HISTORY: Status post placement of feeding tube Coresafe placement COMPARISON: KUB 04/21/2019 11:33 AM FINDINGS: The bowel gas pattern is non-obstructive. Reposition feeding tube, distal tip now within th e region of the mid to distal gastric body. There is no organomegaly. No renal calculi. No ureteral calculi. No pneumoperitoneum or pneumatosis. Medial right lung base opacities suggest probable atelec tasis. No fracture. IMPRESSION: Reposition feeding tube, distal tip now within the region of the mid to distal gastric body. ACT 112: Negative or not required by law. The above report was generated using voice recognition software. It may contain grammatical, syntax o r spelling errors. Electronically signed by: Jimmy Warner M.D. 04/21/2019 1:21 PM
[2019-04-21] MEDS ORDERED: Custom Peripheral Pn 1,600 ML in TPN BAG 0 ML IV SCH (16:00)
--- NOTE | 2019-04-21 16:32 | Billing Data ---
Date of Service April 21, 2019 Coding Level of Care Code 80579 Subseq Hosp Care Lvl 3
[2019-04-21] MEDS: NICOTINE 21 MG/24 HR TDSY TD SCH (21:23)
[2019-04-22 01:13] LABS: Anti-Centromere Ab <1.0 NEG AI (<1.0 NEG); Anti-Neutrophil Antibody NONE DETECTED (NONE DETECTED); Anti-SS-A <1.0 NEG AI (<1.0 NEG); Anti-SS-B <1.0 NEG AI (<1.0 NEG); Anti-dsDNA Recombinant 1 IU/mL; JO 1 Antibody <1.0 NEG AI (<1.0 NEG); RNP Antibody <1.0 NEG AI (<1.0 NEG); Rheumatoid Factor <14 IU/mL (<14); Scleroderma Anti Scl-70 Ab <1.0 NEG AI (<1.0 NEG)
[2019-04-22] MEDS: ALBUT/IPRATROP 3MG/0.5MG NEB 3 ML VIAL NEB SCH ×2 (03:04→07:04)
--- NOTE | 2019-04-22 07:10 | XRay Report ---
XR KUB/Abdomen 1 view CLINICAL HISTORY: coresafe placement COMPARISON STUDY: 04/21/2019 FINDINGS: There is no pathologic bowel dilatation. The patient's feeding tube remains positioned with in the stomach. IMPRESSION: The patient's feeding tube remains positioned within the stomach. ACT 112: Negative or not required by law. Electronically signed by: Wilfred العلي M.D. 04/22/2019 7:09 AM
[2019-04-22 07:35] LABS: Basophils # (auto) 0.02 K/uL (0-0.2); Basophils % (auto) 0.2 %; Eosinophils # (auto) 0.14 K/uL (0-0.5); Eosinophils % (auto) 1.6 %; Hematocrit (blood only) 35.3 % (37-47); Hemoglobin 11.3 g/dL (12.0-16.0); Immature Granulocytes # (auto) 0.01 K/uL (0.00-0.02); Immature Granulocytes % (auto) 0.1 %; Lymphocytes # (auto) 2.27 K/uL (1.2-3.4); Lymphocytes % (auto) 25.3 %; Mean Corpuscular Hemoglobin 27.7 pg (25-34); Mean Corpuscular Volume 86.5 fL (80-100); Mean Platelet Volume 9.3 fL (7.4-10.4); Monocytes # (auto) 0.57 K/uL (0.11-0.59); Monocytes % (auto) 6.3 %; Neutrophils # (auto) 5.98 K/uL (1.4-6.5); Neutrophils % (auto) 66.5 %; Platelet Count 309 K/uL (130-400); RDW Coefficient of Variation 15.3 % (11.5-14.5); RDW Standard Deviation 48.3 fL (36.4-46.3); Red Blood Count 4.08 M/uL (4.2-5.4); White Blood Count 8.99 K/uL (4.8-10.8)
[2019-04-22 08:06] LABS: Alanine Aminotransferase 42 U/L (12-78); Albumin Level 2.8 gm/dl (3.4-5.0); Aspartate Aminotransferase 18 U/L (15-37); BUN Creatinine Ratio 25.8 (10-20); Blood Urea Nitrogen 9 mg/dl (7-18); Calcium 9.6 mg/dl (8.5-10.1); Carbon Dioxide 31 mmol/L (21-32); Chloride 103 mmol/L (98-107); Est GFR (African American) > 150.0; Est GFR (Non-African American) 132.1; Glucose 90 mg/dl (70-99); Potassium 4.2 mmol/L (3.5-5.1); Sodium 139 mmol/L (136-145)
[2019-04-22 08:14] LABS: Albumin Globulin Ratio 0.8 (0.9-2); Alkaline Phosphatase 195 U/L (45-117); Bilirubin,Total 0.4 mg/dl (0.2-1); Globulin 3.7 gm/dl (2.5-4.0); Total Protein 6.5 gm/dl (6.4-8.2)
--- NOTE | 2019-04-22 09:31 | Fluoroscopy Report ---
[facility] CLINICAL HISTORY: ADVANCE NG TUBE COMPARISON STUDY: KUTi April 22, 2019 6:46 AM. FLUOROSCOPY TIME: 4.3 minutes. FLUOROSCOPIC IMAGES: 1 FINDINGS: The procedure was discussed with the patient. The patient agreed to the procedure. The tip of the feeding tube remained within the stomach. Despite multiple attempts, the tube could not be pas sed into the small bowel. The patient deferred further attempts. At the completion of the study, the tip was within the gastric fundus. This was discussed with Dr. Fang of time of procedure. IMPRESSION: Unsuccessful advancement of the feeding tube into the small bowel despite multiple times . Patient deferred further attempts. At completion of procedure, tip of feeding tube within the gastr ic fundus. Findings discussed with Rl Fang at time of dictation. ACT 112: Negative or not required by law. Electronically signed by: Babatunde Back M.D. 04/22/2019 9:30 AM
[2019-04-22] MEDS: cefTRIAXone SODIUM 1,000 MG in DEXTROSE 5% 50 ML IV SCH (09:39)
[2019-04-22] MEDS: AZITHROMYCIN 250 MG in DEXTROSE 5% 250 ML IV SCH (09:39)
[2019-04-22] MEDS: FAMOTIDINE 20 MG in SYRINGE 3 ML IV SCH ×2 (09:39→21:44)
[2019-04-22] MEDS: FLUTICASONE/SALMETEROL 100/50 (ADVAIR) 14 PUFF/1 INHALER INH SCH ×2 (09:39→21:44)
[2019-04-22] MEDS: ENOXAPARIN INJ 40 MG/0.4 ML SYR SQ SCH (09:40)
[2019-04-22] MEDS: TIOTROPIUM BROMIDE 5 PUFF/90 MCG INH INH SCH (09:41)
--- NOTE | 2019-04-22 11:16 | Hospitalist Progress Note ---
Date of Service April 22, 2019 Assessment & Plan (1) Acute respiratory failure: Acute hypoxic respiratory failure: - this all seems likely 2/2 the esophageal dysmotility, and subsequent aspiration of oropharyngeal contents - CT scan, swallow study, and EGD demonstrated high propensity for aspiration given lack of esophageal motion - receiving PPN today, attempted placement of NG tube but was needed to be switched to Coresafe tube for further ability to direct tube past pylorus - receiving tube feeds, 10mL/hr as a test to make sure that patient tolerates feeds and does not reflux and increase aspiration - patient will need esophageal manometry outpatient for the confirmation of the lack of motility of the esophagus - Continued Albuterol PRN; continued Advair diskus and Spiriva, as these are closest to what she will be covered for insurance [employer] after discharge (Breo Ellipta 100-25 1 puff daily, and Incruse Ellipta 62.5 1 puff daily) - severe protein calorie mal-nutrition - Consulted Pulm: appreciate recs - Consulted GI: EGD demonstrated decreased motility - Auto-immune work-up negative Urinary retention: - patient complained of consistent urge to urinate throughout the day yesterday; has not had any continued problems with urination; subsequent bladder scan yesterday at 2300 demonstrated 50mL remaining after urination - potentially 2/2 systemic development of scleroderma limiting bladder contraction; although resolution of this problem seems unlikely, making this more likely to have been due to a transient problem that should not recur Diet: NPO, receiving PPN and tube feeds Code: Full DVT PPx: SCDs Supervising Physician Co-Signing Physician Notes Resident Physician Supervision Note: Main complaint today is that it was uncomfortable trying to reposition the core safe. Unfortunately this was unsuccessful. Dr. Fang discussed the case with gastroenterology who noted that since the patient had fairly patent lower esophageal sphincter that it would be reasonable to try tube feeds here due to lower risk of reflux aspiration. We discussed this versus transfer for interventional radiology to reposition the tube with the patient, discussing the risks and benefits of both approaches, and the patient would prefer to try tube feeds here rather than be transferred. vitals noted nad heent nc at mmm. NGT in place with no local skin breakdown. breathing unlabored no accessory muscles good effort. skin no rashes no pallor or icterus. no focal neuro deficits. ongoing poor dentition. A/P: 1. b/l lower lobe pneumonia - due to aspiration given the dysphagia and esophageal findings on CT/EGD. Improving nicely. Finish short course of antibiotics. 2. acute hypoxic resp failure - resolved. 2nd to #1 +/- asthma/COPD exac erbation. Latter also improved/resolved. continue inhalers and supportive care. Breathing seems fairly stable today. 3. markedly dilated esophagus with resulting dysphagia and aspiration - s/p EGD - minimal to no peristalsis seen during the EGD. Tube feeds have been started, go very slow and follow closely, look for signs of reflux/aspiration. 4. dysphagia - maintain strict NPO status. continue ppn for nutrition until NGT safely advanced to small bowel, then start tube feeds. might need IR to help w tube if unable to be advanced at this facility. 5. FEN - PPN for now; appreciate pharmacy assistance. tube feeds started at low rate, if we are able to increase rates tomorrow, we will likely be able to stop parenteral nutrition then. 6. tobacco dependence - nicoderm. 7. severe protein calorie malnutrition - see #5 above. Tube feeds started 8. DVT proph - lovenox. 9. COPD + exacerbation - inhalers, and otherwise as above. Breathing stable today. 10. mild anemia - 2nd to phlebotomy but consider b12/folate/iron studies given malnutrition. otherwise as above Subjective Patient continues to do well and improve from the perspective of breathing difficulty; she is encouraged that her lab results for the immunology are negative. Was able to tolerate the coresafe well overnight, and understands that this should try to be in the lower part of her stomach for the optimal safety of future feeding. Review of Systems Constitutional: no fever, no chills and no body aches Eyes: no diplopia and no spots in vision Respiratory: no cough, no dyspnea and no wheezing Cardiovascular: no chest pain, no palpitations and no edema Gastrointestinal: no abdominal pain, no nausea and no vomiting Physical Exam Constitutional: well developed, + thin, + frail appearing, cooperative and + malnourished Eyes: PERRL, conjunctivae normal, anicteric sclerae Respiratory: + abnormal respiratory effort, no retractions, no dullness to percussion and no cough Auscultation: + diminished lung sounds; no crackles, no wheezes and no pleural rub Cardiovascular: RRR, no murmur, no edema Gastrointestinal (Abdomen): normal bowel sounds, soft, nontender, no hepatosplenomegaly Results & Data Vital Signs (Past 12 Hours) Vital Signs Temp Pulse Resp BP Pulse Ox 04/22/19 08:00 36.8 C 91 H 22 98/63 L 93 04/22/19 07:04 69 16 95 04/22/19 04:00 94 H 04/22/19 03:31 37.0 C 73 17 104/64 95 04/22/19 00:01 36.8 C 87 17 114/73 95 04/21/19 23:17 87 20 93 Laboratory Results 04/22/19 04/22/19 04/22/19 Range/Units 11:30 07:38 07:12 WBC (4.8-10.8) K/uL RBC (4.2-5.4) M/uL Hgb (12.0-16.0) g/dL Hct (37-47) % MCV (80-100) fL MCH (25-34) pg MCHC (32-36) g/dL RDW Std Deviation (36.4-46.3) fL RDW Coeff of Abhishek (11.5-14.5) % Plt Count (130-400) K/uL MPV (7.4-10.4) fL Immature Gran % (Auto) % Neut % (Auto) % Lymph % (Auto) % [place] % (Auto) % Eos % (Auto) % Baso % (Auto) % Immature Gran # (Auto) (0.00-0.02) K/uL Neut # (Auto) (1.4-6.5) K/uL Lymph # (Auto) (1.2-3.4) K/uL [place] # (Auto) (0.11-0.59) K/uL Eos # (Auto) (0-0.5) K/uL Baso # (Auto) (0-0.2) K/uL Sodium (136-145) mmol/L Potassium (3.5-5.1) mmol/L Chloride (98-107) mmol/L Carbon Dioxide (21-32) mmol/L Anion Gap (3-11) BUN (7-18) mg/dl Creatinine (0.6-1.2) mg/dl Est Cr Clr Drug Dosing ml/min Est GFR ( Amer) Est GFR (Non-Af Amer) BUN/Creatinine Ratio (10-20) Glucose (70-99) mg/dl POC Glucose 113 H 89 (70-99) Calcium (8.5-10.1) mg/dl Phosphorus 4.1 D (2.5-4.9) mg/dl Magnesium 2.2 (1.8-2.4) mg/dl Total Bilirubin (0.2-1) mg/dl AST (15-37) U/L ALT (12-78) U/L Alkaline Phosphatase (45-117) U/L Total Protein (6.4-8.2) gm/dl Albumin (3.4-5.0) gm/dl Globulin (2.5-4.0) gm/dl Albumin/Globulin Ratio (0.9-2) POC Ur Test (NEG) Rheumatoid Factor (<14) IU/mL Anti-Neutrophil (Flow) (NONE DETECTED) SUSAN-1 Antibody (<1.0 NEG) AI SS-A/Ro Antibody (<1.0 NEG) AI SS-B/La Antibody (<1.0 NEG) AI TEST PILOT Antibody (<1.0 NEG) AI Scl-70 Scleroderma Ab (<1.0 NEG) AI Double Strand DNA Ab IU/mL Anti-Centromere Ab (<1.0 NEG) AI 04/22/19 04/22/19 04/22/19 Range/Units 07:12 07:12 00:00 WBC 8.99 (4.8-10.8) K/uL RBC 4.08 L (4.2-5.4) M/uL Hgb 11.3 L (12.0-16.0) g/dL Hct 35.3 L (37-47) % MCV 86.5 (80-100) fL MCH 27.7 (25-34) pg MCHC 32.0 (32-36) g/dL RDW Std Deviation 48.3 H (36.4-46.3) fL RDW Coeff of Abhishek 15.3 H (11.5-14.5) % Plt Count 309 (130-400) K/uL MPV 9.3 (7.4-10.4) fL Immature Gran % (Auto) 0.1 % Neut % (Auto) 66.5 % Lymph % (Auto) 25.3 % [place] % (Auto) 6.3 % Eos % (Auto) 1.6 % Baso % (Auto) 0.2 % Immature Gran # (Auto) 0.01 (0.00-0.02) K/uL Neut # (Auto) 5.98 (1.4-6.5) K/uL Lymph # (Auto) 2.27 (1.2-3.4) K/uL [place] # (Auto) 0.57 (0.11-0.59) K/uL Eos # (Auto) 0.14 (0-0.5) K/uL Baso # (Auto) 0.02 (0-0.2) K/uL Sodium 139 (136-145) mmol/L Potassium 4.2 D (3.5-5.1) mmol/L Chloride 103 (98-107) mmol/L Carbon Dioxide 31 (21-32) mmol/L Anion Gap 5.0 (3-11) BUN 9 (7-18) mg/dl Creatinine 0.36 L (0.6-1.2) mg/dl Est Cr Clr Drug Dosing 126.0 ml/min Est GFR ( Amer) > 150.0 Est GFR (Non-Af Amer) 132.1 BUN/Creatinine Ratio 25.8 H (10-20) Glucose 90 (70-99) mg/dl POC Glucose 87 (70-99) Calcium 9.6 (8.5-10.1) mg/dl Phosphorus (2.5-4.9) mg/dl Magnesium (1.8-2.4) mg/dl Total Bilirubin 0.4 (0.2-1) mg/dl AST 18 (15-37) U/L ALT 42 (12-78) U/L Alkaline Phosphatase 195 H (45-117) U/L Total Protein 6.5 (6.4-8.2) gm/dl Albumin 2.8 L (3.4-5.0) gm/dl Globulin 3.7 (2.5-4.0) gm/dl Albumin/Globulin Ratio 0.8 L (0.9-2) POC Ur Test (NEG) Rheumatoid Factor (<14) IU/mL Anti-Neutrophil (Flow) (NONE DETECTED) SUSAN-1 Antibody (<1.0 NEG) AI SS-A/Ro Antibody (<1.0 NEG) AI SS-B/La Antibody (<1.0 NEG) AI TEST PILOT Antibody (<1.0 NEG) AI Scl-70 Scleroderma Ab (<1.0 NEG) AI Double Strand DNA Ab IU/mL Anti-Centromere Ab (<1.0 NEG) AI 04/19/19 04/18/19 Range/Units 11:55 09:07 WBC (4.8-10.8) K/uL RBC (4.2-5.4) M/uL Hgb (12.0-16.0) g/dL Hct (37-47) % MCV (80-100) fL MCH (25-34) pg MCHC (32-36) g/dL RDW Std Deviation (36.4-46.3) fL RDW Coeff of Abhishek (11.5-14.5) % Plt Count (130-400) K/uL MPV (7.4-10.4) fL Immature Gran % (Auto) % Neut % (Auto) % Lymph % (Auto) % [place] % (Auto) % Eos % (Auto) % Baso % (Auto) % Immature Gran # (Auto) (0.00-0.02) K/uL Neut # (Auto) (1.4-6.5) K/uL Lymph # (Auto) (1.2-3.4) K/uL [place] # (Auto) (0.11-0.59) K/uL Eos # (Auto) (0-0.5) K/uL Baso # (Auto) (0-0.2) K/uL Sodium (136-145) mmol/L Potassium (3.5-5.1) mmol/L Chloride (98-107) mmol/L Carbon Dioxide (21-32) mmol/L Anion Gap (3-11) BUN (7-18) mg/dl Creatinine (0.6-1.2) mg/dl Est Cr Clr Drug Dosing ml/min Est GFR ( Amer) Est GFR (Non-Af Amer) BUN/Creatinine Ratio (10-20) Glucose (70-99) mg/dl POC Glucose (70-99) Calcium (8.5-10.1) mg/dl Phosphorus (2.5-4.9) mg/dl Magnesium (1.8-2.4) mg/dl Total Bilirubin (0.2-1) mg/dl AST (15-37) U/L ALT (12-78) U/L Alkaline Phosphatase (45-117) U/L Total Protein (6.4-8.2) gm/dl Albumin (3.4-5.0) gm/dl Globulin (2.5-4.0) gm/dl Albumin/Globulin Ratio (0.9-2) POC Ur Test NEG (NEG) Rheumatoid Factor <14 (<14) IU/mL Anti-Neutrophil (Flow) NONE DETECTED (NONE DETECTED) SUSAN-1 Antibody <1.0 NEG (<1.0 NEG) AI SS-A/Ro Antibody <1.0 NEG (<1.0 NEG) AI SS-B/La Antibody <1.0 NEG (<1.0 NEG) AI TEST PILOT Antibody <1.0 NEG (<1.0 NEG) AI Scl-70 Scleroderma Ab <1.0 NEG (<1.0 NEG) AI Double Strand DNA Ab 1 IU/mL Anti-Centromere Ab <1.0 NEG (<1.0 NEG) AI Medications Administered Current Inpatient Medications Al Hydrox/Mg Hydrox/Simethicone (Maalox) 15 ml PO Q4H PRN PRN Reason: Dyspepsia Stop: 05/17/19 19:53 Albuterol (Ventolin Hfa) 2 puffs INH QID PRN PRN Reason: Shortness Of Breath Stop: 05/17/19 19:53 Albuterol (Duoneb) 3 ml NEB Q4R PRN PRN Reason: Shortness Of Breath Stop: 05/17/19 22:59 Enoxaparin Sodium (Lovenox) 40 mg SQ QAM SARITA Stop: 05/18/19 08:59 Last Admin: 04/22/19 09:40 Dose: 40 mg Documented by: Enteral Nutritional Formula (Peptamen 1.5 Murray) 1,000 ml PO UD SARITA; Protocol Stop: 05/22/19 10:14 Ceftriaxone Sodium 1,000 mg/ (Dextrose) 60 mls @ 100 mls/hr IV DAILY SARITA; Protocol Stop: 04/24/19 08:59 Last Infusion: 04/22/19 10:20 Dose: Infused Documented by: Famotidine 20 mg/ Syringe 5 mls @ 2.5 mls/min IV BID SARITA Stop: 05/19/19 20:59 Last Admin: 04/22/19 09:39 Dose: 2.5 mls/min Documented by: Azithromycin 250 mg/ Dextrose 252.5 mls @ 125 mls/hr IV QAM SARITA Stop: 04/26/19 14:29 Last Infusion: 04/22/19 11:48 Dose: Infused Documented by: Dextrose (D10w) 1,000 mls @ 0 mls/hr IV .Q0M [facility] Stop: 05/20/19 15:59 Nutrition (Parenteral) 1,600 (ml/ TPN BAG) 1,600 mls @ 66.67 mls/hr IV .Q24H SARITA; Protocol Stop: 04/22/19 15:59 Last Admin: 04/21/19 16:54 Dose: 66.7 mls/hr Documented by: Acetaminophen (Ofirmev) 65 mls @ 200 mls/hr IV Q8H PRN; Protocol PRN Reason: Pain Stop: 04/25/19 12:25 Last Infusion: 04/22/19 13:20 Dose: Infused Documented by: Nutrition (Parenteral) 1,600 (ml/ TPN BAG) 1,600 mls @ 66.67 mls/hr IV .Q24H SARITA; Protocol Stop: 04/23/19 15:59 Magnesium Hydroxide (Milk Of Magnesia) 30 ml PO Q12H PRN PRN Reason: Constipation Stop: 05/17/19 19:53 Miscellaneous (Remove Nicoderm Patch) 1 ea N/A DAILY@2058 [facility] Stop: 05/18/19 20:58 Last Admin: 04/21/19 21:25 Dose: 1 ea Documented by: Miscellaneous Information (Pharmacy Tpn/Ppn Consult Active) 1 ea N/A UD PRN PRN Reason: Consult Stop: 05/22/19 11:50 Nicotine (Nicoderm Cq) 21 mg TD HS [facility] Stop: 05/17/19 20:59 Last Admin: 04/21/19 21:23 Dose: 21 mg Documented by: Polyethylene Glycol (Miralax Powder Packet) 17 gm PO DAILY PRN PRN Reason: Constipation Stop: 05/17/19 19:53 Fluticasone/Salmeterol (Advair Diskus 100/50) 1 puffs INH BID [facility] Stop: 05/18/19 20:59 Last Admin: 04/22/19 09:39 Dose: 1 puffs Documented by: Tiotropium [place] (Spiriva) 1 puffs INH QAM SARITA Stop: 05/18/19 10:59 Last Admin: 04/22/19 09:41 Dose: 1 puffs Documented by: Resident Activity Tracking Resident Involvement: Resident Care Provided Care Provided: Adult Hospital Medicine
[2019-04-22] MEDS ORDERED: TPN/PPN CONSULT PHARMACY PRN (11:51)
[2019-04-22 12:16] LABS: Magnesium 2.2 mg/dl (1.8-2.4); Phosphorus 4.1 mg/dl (2.5-4.9)
[2019-04-22] MEDS ORDERED: ACETAMINOPHEN 65 ML IV PRN (12:26)
[2019-04-22] MEDS ORDERED: Custom Peripheral Pn 1,600 ML in TPN BAG 0 ML IV SCH (16:00)
--- NOTE | 2019-04-22 17:03 | Billing Data ---
Date of Service April 22, 2019 Coding Level of Care Code 32939 Subseq Hosp Care Lvl 3
[2019-04-22] MEDS: NICOTINE 21 MG/24 HR TDSY TD SCH (21:44)
[2019-04-23 06:54] LABS: BUN Creatinine Ratio 34.4 (10-20); Blood Urea Nitrogen 13 mg/dl (7-18); Calcium 9.6 mg/dl (8.5-10.1); Carbon Dioxide 30 mmol/L (21-32); Chloride 103 mmol/L (98-107); Creatinine Clr Calc Pharmacy 122.6 ml/min; Est GFR (African American) > 150.0; Est GFR (Non-African American) 130.9; Glucose 93 mg/dl (70-99); Phosphorus 3.9 mg/dl (2.5-4.9); Sodium 138 mmol/L (136-145)
[2019-04-23 07:29] LABS: Potassium 4.3 mmol/L (3.5-5.1)
[2019-04-23 07:32] LABS: Magnesium 2.4 mg/dl (1.8-2.4)
[2019-04-23] MEDS: FLUTICASONE/SALMETEROL 100/50 (ADVAIR) 14 PUFF/1 INHALER INH SCH ×2 (07:55→20:27)
[2019-04-23] MEDS: TIOTROPIUM BROMIDE 5 PUFF/90 MCG INH INH SCH (07:56)
[2019-04-23] MEDS: ENOXAPARIN INJ 40 MG/0.4 ML SYR SQ SCH (07:57)
[2019-04-23] MEDS: cefTRIAXone SODIUM 1,000 MG in DEXTROSE 5% 50 ML IV SCH (07:59)
[2019-04-23] MEDS: FAMOTIDINE 20 MG in SYRINGE 3 ML IV SCH ×2 (08:03→20:27)
[2019-04-23] MEDS: AZITHROMYCIN 250 MG in DEXTROSE 5% 250 ML IV SCH (08:36)
--- NOTE | 2019-04-23 10:31 | Hospitalist Progress Note ---
Date of Service April 23, 2019 Assessment & Plan (1) Acute respiratory failure: Acute hypoxic respiratory failure: - this all seems likely 2/2 the esophageal dysmotility, and subsequent aspiration of oropharyngeal contents - CT scan, swallow study, and EGD demonstrated high propensity for aspiration given lack of esophageal motion - will discontinue PPN today - receiving tube feeds, increased tube feeds to 30L/hr as she did not reflux; can continue to increase feed rates (needs a goal of 960 every 24 hours) - patient will need esophageal manometry outpatient for the confirmation of the lack of motility of the esophagus - Continued Albuterol PRN; continued Advair diskus and Spiriva, as these are closest to what she will be covered for insurance [employer] after discharge (Breo Ellipta 100-25 1 puff daily, and Incruse Ellipta 62.5 1 puff daily) - severe protein calorie mal-nutrition - Consulted Pulm: appreciate recs - Consulted GI: EGD demonstrated decreased motility - Auto-immune work-up negative Urinary retention: - patient complained of consistent urge to urinate throughout the day yesterday; has not had any continued problems with urination; subsequent bladder scan yesterday at 2300 demonstrated 50mL remaining after urination - potentially 2/2 systemic development of scleroderma limiting bladder contraction; although resolution of this problem seems unlikely, making this more likely to have been due to a transient problem that should not recur Diet: NPO, tube feeds Code: Full DVT PPx: SCDs Supervising Physician Co-Signing Physician Notes Resident Physician Supervision Note: tolerating tube feeds well. no abdominal pain or bloating. no reflux or thick mucous in throat. no cough. no worse sob. vitals noted nad heent nc at mmm. NGT in place with no local skin breakdown. lungs cta b/l no rales or wheeze, faint scattered rhonchi R>L, breathing unlabored no accessory muscles good effort. skin no rashes no pallor or icterus. no focal neuro deficits. ongoing poor dentition. A/P: 1. b/l lower lobe pneumonia - due to aspiration given the dysphagia and esophageal findings on CT/EGD. Improving nicely. follow for any new worsening with tube feeds - thus far none 2. acute hypoxic resp failure - resolved. 2nd to #1 +/- asthma/COPD exacerbation. Latter also improved/resolved. follow closely w tube feeds - doing well. 3. markedly dilated esophagus with resulting dysphagia and aspiration - s/p EGD - minimal to no peristalsis seen during the EGD. tolerating tube feeds closer to goal - continue to titrate. 4. dysphagia - maintain strict NPO status. tube feeds going well - advance as tolerated, working towards goal. outpt manometry. 5. FEN - tube feeds now close enough to goal that parenteral nutrition can be stopped. 6. tobacco dependence - nicoderm. 7. severe protein calorie malnutrition - see above 8. DVT proph - lovenox. 9. COPD + exacerbation - inhalers, and otherwise as above. breathing has been stable for days. 10. mild anemia - 2nd to phlebotomy but consider b12/folate/iron studies given malnutrition. otherwise as above Subjective Patient tolerated the tube feeds really well overnight, but feels like her energy has very minimally improved; continues to feel more tired but thinks this is more due to interruptions of her sleep throughout the night. Has not had any reflux type symptoms since the feeds were started nor had any continued difficulty with her breathing since she stopped having to try and swallow foods. Review of Systems Review of Systems: All systems reviewed & are unremarkable except as noted in HPI & below Physical Exam Constitutional: well developed, + thin, + frail appearing, + disheveled, cooperative and + malnourished Eyes: PERRL, conjunctivae normal, anicteric sclerae Respiratory: + abnormal respiratory effort, no retractions, no dullness to percussion and no cough Auscultation: + diminished lung sounds; no crackles, no wheezes and no pleural rub Cardiovascular: RRR, no murmur, no edema Gastrointestinal (Abdomen): normal bowel sounds, soft, nontender, no hepatosplenomegaly Results & Data Vital Signs (Past 12 Hours) Vital Signs Temp Pulse Resp BP Pulse Ox 04/23/19 08:17 36.6 C 77 18 88/54 L 95 Laboratory Results 04/23/19 04/23/19 04/22/19 Range/Units 07:04 05:49 11:30 Sodium 138 (136-145) mmol/L Potassium 4.3 (3.5-5.1) mmol/L Chloride 103 (98-107) mmol/L Carbon Dioxide 30 (21-32) mmol/L Anion Gap 5.0 (3-11) BUN 13 (7-18) mg/dl Creatinine 0.37 L (0.6-1.2) mg/dl Est Cr Clr Drug Dosing 122.6 ml/min Est GFR ( Amer) > 150.0 Est GFR (Non-Af Amer) 130.9 BUN/Creatinine Ratio 34.4 H (10-20) Glucose 93 (70-99) mg/dl POC Glucose 113 H (70-99) Calcium 9.6 (8.5-10.1) mg/dl Phosphorus 3.9 (2.5-4.9) mg/dl Magnesium 2.4 (1.8-2.4) mg/dl POC Ur Test (NEG) 04/22/19 04/19/19 Range/Units 07:12 11:55 Sodium (136-145) mmol/L Potassium (3.5-5.1) mmol/L Chloride (98-107) mmol/L Carbon Dioxide (21-32) mmol/L Anion Gap (3-11) BUN (7-18) mg/dl Creatinine (0.6-1.2) mg/dl Est Cr Clr Drug Dosing ml/min Est GFR ( Amer) Est GFR (Non-Af Amer) BUN/Creatinine Ratio (10-20) Glucose (70-99) mg/dl POC Glucose (70-99) Calcium (8.5-10.1) mg/dl Phosphorus 4.1 D (2.5-4.9) mg/dl Magnesium 2.2 (1.8-2.4) mg/dl POC Ur Test NEG (NEG) Medications Administered Current Inpatient Medications Al Hydrox/Mg Hydrox/Simethicone (Maalox) 15 ml PO Q4H PRN PRN Reason: Dyspepsia Stop: 05/17/19 19:53 Albuterol (Ventolin Hfa) 2 puffs INH QID PRN PRN Reason: Shortness Of Breath Stop: 05/17/19 19:53 Albuterol (Duoneb) 3 ml NEB Q4R PRN PRN Reason: Shortness Of Breath Stop: 05/17/19 22:59 Enoxaparin Sodium (Lovenox) 40 mg SQ QAM SARITA Stop: 05/18/19 08:59 Last Admin: 04/23/19 07:57 Dose: 40 mg Documented by: Enteral Nutritional Formula (Peptamen 1.5 Murray) 1,000 ml PO UD [facility]; Protocol Stop: 05/22/19 10:14 Ceftriaxone Sodium 1,000 mg/ (Dextrose) 60 mls @ 100 mls/hr IV DAILY SARITA; Protocol Stop: 04/24/19 08:59 Last Infusion: 04/23/19 08:38 Dose: Infused Documented by: Famotidine 20 mg/ Syringe 5 mls @ 2.5 mls/min IV BID SARITA Stop: 05/19/19 20:59 Last Admin: 04/23/19 08:03 Dose: 2.5 mls/min Documented by: Azithromycin 250 mg/ Dextrose 252.5 mls @ 125 mls/hr IV QAM SARITA Stop: 04/26/19 14:29 Last Admin: 04/23/19 08:36 Dose: 125 mls/hr Documented by: Dextrose (D10w) 1,000 mls @ 0 mls/hr IV .Q0M [facility] Stop: 05/20/19 15:59 Acetaminophen (Ofirmev) 65 mls @ 200 mls/hr IV Q8H PRN; Protocol PRN Reason: Pain Stop: 04/25/19 12:25 Last Infusion: 04/22/19 13:20 Dose: Infused Documented by: Nutrition (Parenteral) 1,600 (ml/ TPN BAG) 1,600 mls @ 66.67 mls/hr IV .Q24H SARITA; Protocol Stop: 04/23/19 15:59 Last Admin: 04/22/19 16:09 Dose: 66.7 mls/hr Documented by: Magnesium Hydroxide (Milk Of Magnesia) 30 ml PO Q12H PRN PRN Reason: Constipation Stop: 05/17/19 19:53 Miscellaneous (Remove Nicoderm Patch) 1 ea N/A DAILY@2058 [facility] Stop: 05/18/19 20:58 Last Admin: 04/22/19 21:43 Dose: 1 ea Documented by: Miscellaneous Information (Pharmacy Tpn/Ppn Consult Active) 1 ea N/A UD PRN PRN Reason: Consult Stop: 05/22/19 11:50 Nicotine (Nicoderm Cq) 21 mg TD HS [facility] Stop: 05/17/19 20:59 Last Admin: 04/22/19 21:44 Dose: 21 mg Documented by: Polyethylene Glycol (Miralax Powder Packet) 17 gm PO DAILY PRN PRN Reason: Constipation Stop: 05/17/19 19:53 Fluticasone/Salmeterol (Advair Diskus 100/50) 1 puffs INH BID [facility] Stop: 05/18/19 20:59 Last Admin: 04/23/19 07:55 Dose: 1 puffs Documented by: Tiotropium Kake (Spiriva) 1 puffs INH QAM [facility] Stop: 05/18/19 10:59 Last Admin: 04/23/19 07:56 Dose: 1 puffs Documented by: Resident Activity Tracking Resident Involvement: Resident Care Provided Care Provided: Adult Hospital Medicine
[2019-04-23] MEDS ORDERED: Custom Peripheral Pn 1,600 ML in TPN BAG 0 ML IV SCH (16:00)
--- NOTE | 2019-04-23 19:48 | Billing Data ---
Date of Service April 23, 2019 Coding Level of Care Code 25087 Subseq Hosp Care Lvl 3
[2019-04-23] MEDS: NICOTINE 21 MG/24 HR TDSY TD SCH (20:28)
--- NOTE | 2019-04-24 07:32 | XRay Report ---
KUB HISTORY: Status post placement of a feeding tube tube placement COMPARISON: KUB 04/22/2019 FINDINGS: The bowel gas pattern is non-obstructive. Repositioned feeding tube, now with distal tip pr ojected over the abdominal quadrants in the expected location of the mid gastric body. Air-filled loo ps of large and small bowel are noted throughout the abdomen. There is no organomegaly. No renal an culi. No ureteral calculi. Linear calcifications are again noted projecting over the right L4 transve rse process. Multiple pelvic basin calcifications suggestive of probable phleboliths redemonstrated. No pneumoperitoneum or pneumatosis. No fracture. IMPRESSION: Repositioned feeding tube distal tip now in the expected location of the mid gastric body. ACT 112: Negative or not required by law. The above report was generated using voice recognition software. It may contain grammatical, syntax o r spelling errors. Electronically signed by: Jimmy Warner M.D. 04/24/2019 7:30 AM
[2019-04-24] MEDS: TIOTROPIUM BROMIDE 5 PUFF/90 MCG INH INH SCH (08:58)
[2019-04-24] MEDS: FLUTICASONE/SALMETEROL 100/50 (ADVAIR) 14 PUFF/1 INHALER INH SCH ×2 (08:58→20:07)
[2019-04-24] MEDS: ENOXAPARIN INJ 40 MG/0.4 ML SYR SQ SCH (08:58)
[2019-04-24] MEDS: AZITHROMYCIN 250 MG in DEXTROSE 5% 250 ML IV SCH (08:58)
[2019-04-24] MEDS: FAMOTIDINE 20 MG in SYRINGE 3 ML IV SCH ×2 (08:58→20:07)
[2019-04-24] MEDS: PEPTAMEN 1.5 CAL 1,000 ML BAG PO SCH (08:59)
--- NOTE | 2019-04-24 18:58 | Hospitalist Progress Note ---
Date of Service April 24, 2019 Assessment & Plan (1) Acute respiratory failure: Acute hypoxic respiratory failure: - this all seems likely 2/2 the esophageal dysmotility, and subsequent aspiration of oropharyngeal contents - CT scan, swallow study, and EGD demonstrated high propensity for aspiration given lack of esophageal motion - will discontinue PPN today - receiving tube feeds, increased tube feeds to 60L/hr as she did not reflux; can continue to increase feed rates (needs a goal of 960 every 24 hours - ideal 80mL/Hr for 12 hours a day) - patient will need esophageal manometry outpatient for the confirmation of the lack of motility of the esophagus - Continued Albuterol PRN; continued Advair diskus and Spiriva, as these are closest to what she will be covered for insurance [employer] after discharge (Breo Ellipta 100-25 1 puff daily, and Incruse Ellipta 62.5 1 puff daily) - severe protein calorie mal-nutrition - Consulted Pulm: appreciate recs - Consulted GI: EGD demonstrated decreased motility - Auto-immune work-up negative Urinary retention: - patient complained of consistent urge to urinate throughout the day yesterday; has not had any continued problems with urination; subsequent bladder scan yesterday at 2300 demonstrated 50mL remaining after urination - potentially 2/2 systemic development of scleroderma limiting bladder contraction; although resolution of this problem seems unlikely, making this more likely to have been due to a transient problem that should not recur Diet: NPO, tube feeds Code: Full DVT PPx: SCDs Supervising Physician Co-Signing Physician Notes Resident Physician Supervision Note: tolerating tube feeds well even at increased rates. No abdominal pain or bloating, no nausea, no reflux, no feeling of any thick mucus in her throat, no cough no shortness of breath. Generally feels well. vitals noted nad heent nc at mmm. NGT in place with no local skin breakdown. breathing unlabored no accessory muscles good effort. skin no rashes no pallor or icterus. no focal neuro deficits. ongoing poor dentition. Abdomen soft nondistended nontender no masses organomegaly. A/P: 1. b/l lower lobe pneumonia - due to aspiration given the dysphagia and esophageal findings on CT/EGD. Improving nicely. follow for any new worsening with tube feeds -still tolerating well without any problems 2. acute hypoxic resp failure - resolved. 2nd to #1 +/- asthma/COPD exacerbation. Latter also improved/resolved. follow closely w tube feeds - doing well. ideally can get up to 80ml/hr so that she can just have feeds 12hrs on / 12hrs off rather than 24hr continuous 3. markedly dilated esophagus with resulting dysphagia and aspiration - s/p EGD - minimal to no peristalsis seen during the EGD. tolerating tube feeds closer to goal - continue to titrate. 4. dysphagia - maintain strict NPO status. tube feeds going well - advance as tolerated, working towards goal. outpt manometry. 5. FEN - tube feeds as above. 6. tobacco dependence - nicoderm. 7. severe protein calorie malnutrition - see above, hopefully can get better nutrition with tube feeds, hopefully better nutrition will improve dysphagia s ome just by better strength/nutritional status even as etiology is being worked up 8. DVT proph - lovenox. 9. COPD + exacerbation - inhalers, and otherwise as above. breathing has been stable for days. 10. mild anemia - 2nd to phlebotomy but consider b12/folate/iron studies given malnutrition. otherwise as above Subjective Patient tolerated the tube feeds really well overnight, but feels like her energy has very minimally improved; Has not had any reflux type symptoms since the feeds were started nor had any continued difficulty with her breathing since she stopped having to try and swallow foods. Review of Systems Constitutional: no fever, no chills and no sweats Respiratory: no cough, no dyspnea and no wheezing Cardiovascular: no chest pain, no palpitations and no edema Gastrointestinal: no abdominal pain, no nausea and no vomiting Physical Exam Constitutional: well developed, + thin, + frail appearing, + disheveled, cooperative and + malnourished Eyes: PERRL, conjunctivae normal, anicteric sclerae Respiratory: + abnormal respiratory effort, no retractions, no dullness to percussion and no cough Auscultation: + diminished lung sounds; no crackles, no wheezes and no pleural rub Cardiovascular: RRR, no murmur, no edema Gastrointestinal (Abdomen): normal bowel sounds, soft, nontender, no hepatosplenomegaly Results & Data Vital Signs (Past 12 Hours) Vital Signs Temp Pulse Resp BP Pulse Ox 04/24/19 15:30 36.5 C 84 19 101/67 94 Medications Administered Current Inpatient Medications Al Hydrox/Mg Hydrox/Simethicone (Maalox) 15 ml PO Q4H PRN PRN Reason: Dyspepsia Stop: 05/17/19 19:53 Albuterol (Ventolin Hfa) 2 puffs INH QID PRN PRN Reason: Shortness Of Breath Stop: 05/17/19 19:53 Albuterol (Duoneb) 3 ml NEB Q4R PRN PRN Reason: Shortness Of Breath Stop: 05/17/19 22:59 Enoxaparin Sodium (Lovenox) 40 mg SQ QAM [facility] Stop: 05/18/19 08:59 Last Admin: 04/24/19 08:58 Dose: 40 mg Documented by: Enteral Nutritional Formula (Peptamen 1.5 Murray) 1,000 ml PO UD [facility]; Protocol Stop: 05/22/19 10:14 Last Admin: 04/24/19 08:59 Dose: 1,000 ml Documented by: Famotidine 20 mg/ Syringe 5 mls @ 2.5 mls/min IV BID [facility] Stop: 05/19/19 20:59 Last Admin: 04/24/19 08:58 Dose: 2.5 mls/min Documented by: Azithromycin 250 mg/ Dextrose 252.5 mls @ 125 mls/hr IV QAM [facility] Stop: 04/26/19 14:29 Last Infusion: 04/24/19 11:20 Dose: Infused Documented by: Dextrose (D10w) 1,000 mls @ 0 mls/hr IV .Q0M [facility] Stop: 05/20/19 15:59 Acetaminophen (Ofirmev) 65 mls @ 200 mls/hr IV Q8H PRN; Protocol PRN Reason: Pain Stop: 04/25/19 12:25 Last Infusion: 04/22/19 13:20 Dose: Infused Documented by: Magnesium Hydroxide (Milk Of Magnesia) 30 ml PO Q12H PRN PRN Reason: Constipation Stop: 05/17/19 19:53 Miscellaneous (Remove Nicoderm Patch) 1 ea N/A DAILY@2058 [facility] Stop: 05/18/19 20:58 Last Admin: 04/23/19 20:29 Dose: 1 ea Documented by: Nicotine (Nicoderm Cq) 21 mg TD HS [facility] Stop: 05/17/19 20:59 Last Admin: 04/23/19 20:28 Dose: 21 mg Documented by: Polyethylene Glycol (Miralax Powder Packet) 17 gm PO DAILY PRN PRN Reason: Constipation Stop: 05/17/19 19:53 Fluticasone/Salmeterol (Advair Diskus 100/50) 1 puffs INH BID [facility] Stop: 05/18/19 20:59 Last Admin: 04/24/19 08:58 Dose: 1 puffs Documented by: Tiotropium [place] (Spiriva) 1 puffs INH QAM [facility] Stop: 05/18/19 10:59 Last Admin: 04/24/19 08:58 Dose: 1 puffs Documented by: Resident Activity Tracking Resident Involvement: Resident Care Provided Care Provided: Adult Hospital Medicine
--- NOTE | 2019-04-24 19:47 | Billing Data ---
Date of Service April 24, 2019 Coding Level of Care Code 48505 Subseq Hosp Care Lvl 3
[2019-04-24] MEDS: NICOTINE 21 MG/24 HR TDSY TD SCH (20:07)
[2019-04-25] MEDS: PEPTAMEN 1.5 CAL 1,000 ML BAG PO SCH (04:35)
[2019-04-25 07:34] LABS: BUN Creatinine Ratio 36.8 (10-20); Blood Urea Nitrogen 12 mg/dl (7-18); Calcium 9.6 mg/dl (8.5-10.1); Carbon Dioxide 31 mmol/L (21-32); Chloride 106 mmol/L (98-107); Creatinine Clr Calc Pharmacy 137.4 ml/min; Est GFR (African American) > 150.0; Est GFR (Non-African American) 135.9; Glucose 98 mg/dl (70-99); Potassium 3.8 mmol/L (3.5-5.1); Sodium 139 mmol/L (136-145)
[2019-04-25] MEDS: FLUTICASONE/SALMETEROL 100/50 (ADVAIR) 14 PUFF/1 INHALER INH SCH ×2 (07:56→21:41)
[2019-04-25] MEDS: AZITHROMYCIN 250 MG in DEXTROSE 5% 250 ML IV SCH (07:56)
[2019-04-25] MEDS: ENOXAPARIN INJ 40 MG/0.4 ML SYR SQ SCH (07:56)
[2019-04-25] MEDS: FAMOTIDINE 20 MG in SYRINGE 3 ML IV SCH ×2 (07:56→21:39)
[2019-04-25] MEDS: TIOTROPIUM BROMIDE 5 PUFF/90 MCG INH INH SCH (07:57)
--- NOTE | 2019-04-25 15:46 | Hospitalist Progress Note ---
Date of Service April 25, 2019 Assessment & Plan (1) Bilateral pneumonia: 43 yo F admitted for trouble swallowing and shortness of breath found to have esophageal dysmotility and aspiration pneumonia. Acute hypoxic respiratory failure in the setting of aspiration pneumonia: - This all seems likely 2/2 the esophageal dysmotility, and subsequent aspiration of oropharyngeal contents. - CT scan, swallow study, and EGD demonstrated high propensity for aspiration g iven lack of esophageal motion. - Did not tolerate tube feeding through NG overnight, and had residual of 260cc at a rate of 60mL/hr. - Discussed with Dr. Prasad who suggested that given intolerance to feeding at level of stomach will likely need GJ or PEJ tube in order to get proper feeds. - Have consulted Gen Surgery for discussion with pt of options for jejunal tube feedings. Will decrease rate to 30mL/hr for 5 hours tonight until midnight - no feedings after midnight in the event surgery determines they will perform surgery tomorrow. - patient will need esophageal manometry outpatient for the confirmation of the lack of motility of the esophagus. - Continued Albuterol PRN; continued Advair diskus and Spiriva, as these are closest to what she will be covered for insurance [employer] after discharge (Breo Ellipta 100-25 1 puff daily, and Incruse Ellipta 62.5 1 puff daily). - severe protein calorie mal-nutrition - Auto immune workup negative. Would consider a possible seronegative process here as pt's workup to date has been negative. - Extensive discussion with family regarding importance of finding a way for her to get nutrition regardless of the etiology of her dysmotility. At current pace pt not getting enough nutrition through tube feeding, and faster rate was unsuccessful. Pt and family amenable to talking with surgery. - On azithromycin 250mg in Dextrose 252.5 mLs @125mL/hr IV qAM for aspiration pneumonia. Pt afebrile. Urinary retention (resolved): - Pt without symptoms of dysuria, polyuria, difficulty urinating today. Diet: NPO, tube feeds @30cc/hr Code: Full DVT PPx: SCDs Dispo: Med/Surg (2) Hypokalemia: (3) Severe protein-calorie malnutrition: Supervising Physician Co-Signing Physician Notes Patient seen and examined with PGY-1 Dr. Conner. Agree with history, exam findings, assessment and plan of care as outlined. In brief, Ms. Pryor is a 43 year old female with history of recurrent pneumonia admitted for aspiration pneumonia/bilateral pneumonia. She is feels that she is doing ok. Would like to eat. Loose stools since starting tube feeds, but denies abdominal pain, nausea or vomiting. No new fevers. High residuals last night. Vitals signs and nursing notes reviewed. Ill appearing. NGT in place without skin breakdown. Poor dentition. Abdomen soft, nontender. + BS. 1. bilateral lower lobe pneumonia 2/2 aspiration from dysphagia and esophageal dysmotility. Now off O2. 2. Dilated esophagus with dysphagia and aspiration--esophageal dysmotility. Unable to be discharged with NG as is and she did not tolerate the increased rate overnight. Discussed with GI--recommending percutaneous tube either G-J or PEJ. Surgery consulted. Will need outpatient manometry. Autoimmune work up neg for etiology. Continue NPO status. 3. severe protein calorie malnutrition. Continue to try to get nutrition via tube feeds 4. Anemia. Monitor, but consider folate, b12, and iron given her severe malnutrition. Other chronic issues are stable and home medications continued. Dispo: pending percutaneous feeding tube placement. Subjective Pt's tube feeding not tolerated overnight; had 260c residual at 60mL/hr. No nausea or vomiting, no abdominal pain. Had loose BM today. Review of Systems Constitutional: no fever, no chills and no malaise Respiratory: no cough and no dyspnea Cardiovascular: no chest pain, no palpitations and no edema Gastrointestinal: no abdominal pain, no constipation and no diarrhea/loose stools Genitourinary: no dysuria and no hematuria Physical Exam Constitutional: + thin, + cachectic and + disheveled Respiratory: normal respiratory effort, lungs clear to auscultation Cardiovascular: RRR, no murmur, no edema Gastrointestinal (Abdomen): normal bowel sounds, soft, nontender, no hepatospl enomegaly Skin: no rashes, warm and dry Psychiatric: A+Ox3, euthymic affect Results & Data Vital Signs (Past 12 Hours) Vital Signs Temp Pulse Resp BP Pulse Ox 04/25/19 07:13 36.8 C 81 18 102/67 94 Laboratory Results Laboratory Results - last 24 hr 04/20/19 04/25/19 05:59 06:18 Sodium 139 Potassium 3.8 Chloride 106 Carbon Dioxide 31 Anion Gap 2.0 L BUN 12 Creatinine 0.33 L Est Cr Clr Drug Dosing 137.4 Est GFR ( Amer) > 150.0 Est GFR (Non-Af Amer) 135.9 BUN/Creatinine Ratio 36.8 H Glucose 98 Calcium 9.6 Miscellaneous Test REPORT Medications Administered Current Medications Al Hydrox/Mg Hydrox/Simethicone (Maalox) 15 ml PO Q4H PRN PRN Reason: Dyspepsia Stop: 05/17/19 19:53 Albuterol (Ventolin Hfa) 2 puffs INH QID PRN PRN Reason: Shortness Of Breath Stop: 05/17/19 19:53 Albuterol (Duoneb) 3 ml NEB Q4R PRN PRN Reason: Shortness Of Breath Stop: 05/17/19 22:59 Enoxaparin Sodium (Lovenox) 40 mg SQ QAM [facility] Stop: 05/18/19 08:59 Last Admin: 04/25/19 07:56 Dose: 40 mg Documented by: Enteral Nutritional Formula (Peptamen 1.5 Murray) 1,000 ml PO UD [facility]; Protocol Stop: 05/22/19 10:14 Last Admin: 04/25/19 04:35 Dose: 1,000 ml Documented by: Famotidine 20 mg/ Syringe 5 mls @ 2.5 mls/min IV BID [facility] Stop: 05/19/19 20:59 Last Admin: 04/25/19 07:56 Dose: 2.5 mls/min Documented by: Azithromycin 250 mg/ Dextrose 252.5 mls @ 125 mls/hr IV QAM [facility] Stop: 04/26/19 14:29 Last Infusion: 04/25/19 10:09 Dose: Infused Documented by: Dextrose (D10w) 1,000 mls @ 0 mls/hr IV .Q0M [facility] Stop: 05/20/19 15:59 Magnesium Hydroxide (Milk Of Magnesia) 30 ml PO Q12H PRN PRN Reason: Constipation Stop: 05/17/19 19:53 Miscellaneous (Remove Nicoderm Patch) 1 ea N/A DAILY@2058 [facility] Stop: 05/18/19 20:58 Last Admin: 04/24/19 20:09 Dose: 1 ea Documented by: Nicotine (Nicoderm Cq) 21 mg TD HS [facility] Stop: 05/17/19 20:59 Last Admin: 04/24/19 20:07 Dose: 21 mg Documented by: Polyethylene Glycol (Miralax Powder Packet) 17 gm PO DAILY PRN PRN Reason: Constipation Stop: 05/17/19 19:53 Fluticasone/Salmeterol (Advair Diskus 100/50) 1 puffs INH BID [facility] Stop: 05/18/19 20:59 Last Admin: 04/25/19 07:56 Dose: 1 puffs Documented by: Tiotropium [place] (Spiriva) 1 puffs INH QAM [facility] Stop: 05/18/19 10:59 Last Admin: 04/25/19 07:57 Dose: 1 puffs Documented by: Resident Activity Tracking Resident Involvement: Resident Care Provided Care Provided: Adult Hospital Medicine (1) Bilateral pneumonia Aspiration pneumonia type: unspecified Lung location: lower lobe of lung Pneumonia type: aspiration pneumonia Qualified Code(s): J69.0 - Pneumonitis due to inhalation of food and vomit
[2019-04-25] MEDS: NICOTINE 21 MG/24 HR TDSY TD SCH (21:40)
[2019-04-26 06:32] LABS: Basophils # (auto) 0.02 K/uL (0-0.2); Basophils % (auto) 0.3 %; Eosinophils # (auto) 0.29 K/uL (0-0.5); Eosinophils % (auto) 3.9 %; Hematocrit (blood only) 35.8 % (37-47); Hemoglobin 11.2 g/dL (12.0-16.0); Immature Granulocytes # (auto) 0.03 K/uL (0.00-0.02); Immature Granulocytes % (auto) 0.4 %; Lymphocytes # (auto) 2.67 K/uL (1.2-3.4); Mean Corpuscular Hemoglobin 27.3 pg (25-34); Mean Corpuscular Hgb Conc 31.3 g/dL (32-36); Mean Corpuscular Volume 87.1 fL (80-100); Mean Platelet Volume 9.9 fL (7.4-10.4); Monocytes # (auto) 0.69 K/uL (0.11-0.59); Monocytes % (auto) 9.3 %; Neutrophils # (auto) 3.71 K/uL (1.4-6.5); Neutrophils % (auto) 50.1 %; Platelet Count 301 K/uL (130-400); RDW Coefficient of Variation 15.4 % (11.5-14.5); RDW Standard Deviation 49.2 fL (36.4-46.3); Red Blood Count 4.11 M/uL (4.2-5.4); White Blood Count 7.41 K/uL (4.8-10.8)
[2019-04-26 07:04] LABS: BUN Creatinine Ratio 34.3 (10-20); Blood Urea Nitrogen 11 mg/dl (7-18); Carbon Dioxide 29 mmol/L (21-32); Chloride 106 mmol/L (98-107); Creatinine Clr Calc Pharmacy 137.4 ml/min; Est GFR (African American) > 150.0; Est GFR (Non-African American) 135.9; Potassium 3.6 mmol/L (3.5-5.1); Sodium 139 mmol/L (136-145)
[2019-04-26 07:05] LABS: Calcium 9.5 mg/dl (8.5-10.1); Glucose 83 mg/dl (70-99)
[2019-04-26] MEDS: TIOTROPIUM BROMIDE 5 PUFF/90 MCG INH INH SCH (08:19)
[2019-04-26] MEDS: ENOXAPARIN INJ 40 MG/0.4 ML SYR SQ SCH (08:19)
[2019-04-26] MEDS: AZITHROMYCIN 250 MG in DEXTROSE 5% 250 ML IV SCH (08:19)
[2019-04-26] MEDS: FAMOTIDINE 20 MG in SYRINGE 3 ML IV SCH ×2 (08:19→20:45)
[2019-04-26] MEDS: FLUTICASONE/SALMETEROL 100/50 (ADVAIR) 14 PUFF/1 INHALER INH SCH ×2 (08:20→20:44)
--- NOTE | 2019-04-26 09:03 | Surgery Consultation ---
Date of Consultation April 26, 2019 Assessment & Plan (1) Severe protein-calorie malnutrition: Would agree that a perc feeding tube would be best, however this would require evaluation at a tertiary center as we do not perform those procedures here. She was NPO overnight, but can resume her tube feeds at a lower rate until arrangements can be made. as above. poor protoplasm and would likely not heal well with an open technique. agree--rec tertiary center for PEJ tube. pt /family agreeable. History of Present Illness Attending Physician: Mansoor Fay DO History of Present Illness 43 y/o female with malnutrition, esophageal dysmotility and pneumonia. Core safe feeding tube was placed,but she has high residuals with feeds 60cc/hr, with goal of 80 for home feeding. We were asked to evaluate for PEJ/G-J. Allergies Allergy/AdvReac Type Severity Reaction Status Date / Time No Known Allergies Allergy Verified 04/17/19 15:16 Home Medications Home Medications Medication Instructions Recorded Confirmed Type albuterol sulfate 2 puff INHALATION QID PRN 02/08/18 04/17/19 History Patient History Medical History Anxiety (Chronic) Arthritis (Chronic) Constipation (Chronic) COPD (chronic obstructive pulmonary disease) (Chronic) Depression (Chronic) Difficulty chewing (Resolved) Difficulty swallowing (Resolved) Marijuana smoker (Chronic) Ovarian cyst (Resolved) Poor dentition (Chronic) Scoliosis (Chronic) Tobacco abuse (Chronic) Surgical History History of esophagogastroduodenoscopy (EGD) (Resolved) Family History Other Family history non-contributory Social History Preferred Language: Arabic Communication Ability: Effective Vp Mobile Products Required: No Beliefs That Will Affect Care: None marital status: Single Current Living Situation: Family Feels Safe at Home: Yes Smoking Status: Current every day smoker Tobacco Type: cigarettes ; Cigarettes Per Day: 1 PACK/DAY ; Second Hand Exposure: Yes ; Hx Alcohol Use: No Hx Substance Use: No Review of Systems Constitutional: + weight loss (20 pounds recent) Physical Exam Constitutional: + malnourished Gastrointestinal (Abdomen): Inspection/Auscultation: abdomen not distended Percussion/Palpation: abdomen soft Results & Data Vital Signs (Past 12 Hours) Vital Signs Temp Pulse Resp BP Pulse Ox 04/26/19 07:28 36.7 C 66 18 105/66 96 04/25/19 23:00 36.4 C L 77 18 103/69 93 PG Care Time/CCT Total # of Minutes Spent Total Time Spent with Patient: Total time spent is greater than 50% in coordination of care (as documented) at patient's floor/unit and/or counseling patient:
[2019-04-26] MEDS: PEPTAMEN 1.5 CAL 1,000 ML BAG PO SCH ×2 (11:53)
--- NOTE | 2019-04-26 18:15 | Hospitalist Progress Note ---
Date of Service April 26, 2019 Assessment & Plan (1) Bilateral pneumonia: 43 yo F admitted for trouble swallowing and shortness of breath found to have esophageal dysmotility and aspiration pneumonia. Acute hypoxic respiratory failure in the setting of aspiration pneumonia: - This all seems likely 2/2 the esophageal dysmotility, and subsequent aspiration of oropharyngeal contents. - Continued Albuterol PRN; continued Advair diskus and Spiriva, as these are cl osest to what she will be covered for insurance duarte after discharge (Breo Ellipta 100-25 1 puff daily, and Incruse Ellipta 62.5 1 puff daily). - On azithromycin 250mg in Dextrose 252.5 mLs @125mL/hr IV qAM for aspiration pneumonia. Pt afebrile. Failure to thrive, severe protein malnutrition, NG tube failure in the setting of esophageal dysmotility - CT scan, swallow study, and EGD demonstrated high propensity for aspiration given lack of esophageal motion. - Auto immune workup negative. Would consider a possible seronegative process here as pt's workup to date has been negative. - Did not tolerate tube feeding through NG yesterday, and had residual of 260cc at a rate of 60mL/hr. Had a residual of 15mL at a feeding rate of 30mL/hr, however this decreased rate of feeding even over the course of 24 hours would not be sufficient caloric intake for her daily caloric requirements. - Discussed with Dr. Prasad ([facility]) who suggested that given intolerance to feeding at level of stomach will likely need GJ or PEJ tube in order to get proper feeds. [facility] does not perform GJ or PEJ tubes at this facility. - Spoke with Dr. Ivan Kumar at [facility] who stated that given her malnutrition and failure of NG tube she sounded like a good candidate for jejunal feeding, however Drs. Hurtado and Beto here at [facility] perform PEJ and GJ tubes, and he recommended we consult them prior to transferring to [facility]. - Have consulted Dr. Hurtado with [facility] regarding possible PEJ/GJ tube placement. Pt aware of possibility of transfer should our facility not be equipped to perform this procedure. - Patient will need esophageal manometry outpatient for the confirmation of the lack of motility of the esophagus. Diet: NPO, tube feeds @30cc/hr for 12 hours Code: Full DVT PPx: SCDs Dispo: Med/Surg (2) Hypokalemia: (3) Severe protein-calorie malnutrition: Supervising Physician Co-Signing Physician Notes Patient seen and examined with PGY-1 Dr. Conner. Agree with history, exam findings, assessment and plan of care as outlined. In brief, Ms. Pryor is a 43 year old female with history of recurrent pneumonia admitted for aspiration pneumonia/bilateral pneumonia. She is feels that she is doing ok. Would like to eat. Lower residuals on slower rate of TFs although this does not meet caloric needs. Vitals signs and nursing notes reviewed. Ill appearing. NGT in place without skin breakdown. Poor dentition. 1. bilateral lower lobe pneumonia 2/2 aspiration from dysphagia and esophageal dysmotility. Now off O2. 2. Dilated esophagus with dysphagia and aspiration--esophageal dysmotility. Residuals high with NG and not at goal TF rate. Needs Jejeunal feeding. Consulted [facility] here to see if one of their interventional GI physicians would be able to do this here, if not, will need to transfer to [facility]. See above for details of the conversation with Dr. Kumar in [facility]. Resume TFs at 30/hr and monitor residuals. 3. severe protein calorie malnutrition. Continue to try to get nutrition via tube feeds as we are able. 4. Anemia. Monitor, but consider folate, b12, and iron given her severe malnutrition. Other chronic issues are stable and home medications continued. Dispo: pending percutaneous feeding tube placement. Subjective Pt without acute events overnight. Very tired, upset about not being able to go home. However no nausea or vomiting, no abdominal pain. No SOB, CP, palpitations. Review of Systems Constitutional: no fever, no chills and no malaise Respiratory: no cough and no dyspnea Cardiovascular: no chest pain, no palpitations and no edema Gastrointestinal: no abdominal pain, no constipation and no diarrhea/loose stools Genitourinary: no dysuria and no hematuria Physical Exam Physical Exam: Constitutional: + thin, + cachectic and + disheveled Respiratory: normal respiratory effort, lungs clear to auscultation Cardiovascular: RRR, no murmur, no edema Gastrointestinal (Abdomen): normal bowel sounds, soft, nontender, no hepatosplenomegaly Skin: no rashes, warm and dry Psychiatric: A+Ox3, flat blunted affect Results & Data Vital Signs (Past 12 Hours) Vital Signs Temp Pulse Resp BP Pulse Ox 04/26/19 15:20 36.9 C 67 20 96/62 L 96 04/26/19 07:28 36.7 C 66 18 105/66 96 Laboratory Results Laboratory Results - last 24 hr 04/26/19 04/26/19 04/26/19 01:42 05:44 05:44 WBC 7.41 RBC 4.11 L Hgb 11.2 L Hct 35.8 L MCV 87.1 MCH 27.3 MCHC 31.3 L RDW Std Deviation 49.2 H RDW Coeff of Abhishek 15.4 H Plt Count 301 MPV 9.9 Immature Gran % (Auto) 0.4 Neut % (Auto) 50.1 Lymph % (Auto) 36.0 [place] % (Auto) 9.3 Eos % (Auto) 3.9 Baso % (Auto) 0.3 Immature Gran # (Auto) 0.03 H Neut # (Auto) 3.71 Lymph # (Auto) 2.67 [place] # (Auto) 0.69 H Eos # (Auto) 0.29 Baso # (Auto) 0.02 Sodium 139 Potassium 3.6 Chloride 106 Carbon Dioxide 29 Anion Gap 4.0 BUN 11 Creatinine 0.33 L Est Cr Clr Drug Dosing 137.4 Est GFR ( Amer) > 150.0 Est GFR (Non-Af Amer) 135.9 BUN/Creatinine Ratio 34.3 H Glucose 83 POC Glucose 92 Calcium 9.5 04/26/19 04/26/19 06:53 13:38 WBC RBC Hgb Hct MCV MCH MCHC RDW Std Deviation RDW Coeff of Abhishek Plt Count MPV Immature Gran % (Auto) Neut % (Auto) Lymph % (Auto) [place] % (Auto) Eos % (Auto) Baso % (Auto) Immature Gran # (Auto) Neut # (Auto) Lymph # (Auto) [place] # (Auto) Eos # (Auto) Baso # (Auto) Sodium Potassium Chloride Carbon Dioxide Anion Gap BUN Creatinine Est Cr Clr Drug Dosing Est GFR ( Amer) Est GFR (Non-Af Amer) BUN/Creatinine Ratio Glucose POC Glucose 91 108 H Calcium Medications Administered Current Medications Al Hydrox/Mg Hydrox/Simethicone (Maalox) 15 ml PO Q4H PRN PRN Reason: Dyspepsia Stop: 05/17/19 19:53 Albuterol (Ventolin Hfa) 2 puffs INH QID PRN PRN Reason: Shortness Of Breath Stop: 05/17/19 19:53 Albuterol (Duoneb) 3 ml NEB Q4R PRN PRN Reason: Shortness Of Breath Stop: 05/17/19 22:59 Enoxaparin Sodium (Lovenox) 40 mg SQ QAM [facility] Stop: 05/18/19 08:59 Last Admin: 04/26/19 08:19 Dose: Not Given Documented by: Enteral Nutritional Formula (Peptamen 1.5 [place]) 1,000 ml PO UD SARITA; Protocol Stop: 05/22/19 10:14 Last Admin: 04/26/19 11:53 Dose: 1,000 ml Documented by: Famotidine 20 mg/ Syringe 5 mls @ 2.5 mls/min IV BID [facility] Stop: 05/19/19 20:59 Last Admin: 04/26/19 08:19 Dose: 2.5 mls/min Documented by: Dextrose (D10w) 1,000 mls @ 0 mls/hr IV .Q0M [facility] Stop: 05/20/19 15:59 Last Infusion: 04/26/19 03:40 Dose: Infused Documented by: Magnesium Hydroxide (Milk Of Magnesia) 30 ml PO Q12H PRN PRN Reason: Constipation Stop: 05/17/19 19:53 Miscellaneous (Remove Nicoderm Patch) 1 ea N/A DAILY@2058 [facility] Stop: 05/18/19 20:58 Last Admin: 04/25/19 21:40 Dose: 1 ea Documented by: Nicotine (Nicoderm Cq) 21 mg TD HS [facility] Stop: 05/17/19 20:59 Last Admin: 04/25/19 21:40 Dose: 21 mg Documented by: Polyethylene Glycol (Miralax Powder Packet) 17 gm PO DAILY PRN PRN Reason: Constipation Stop: 05/17/19 19:53 Fluticasone/Salmeterol (Advair Diskus 100/50) 1 puffs INH BID [facility] Stop: 05/18/19 20:59 Last Admin: 04/26/19 08:20 Dose: 1 puffs Documented by: Tiotropium [place] (Spiriva) 1 puffs INH QAM [facility] Stop: 05/18/19 10:59 Last Admin: 04/26/19 08:19 Dose: 1 puffs Documented by: Resident Activity Tracking Resident Involvement: Resident Care Provided Care Provided: Adult Hospital Medicine (1) Bilateral pneumonia Aspiration pneumonia type: unspecified Lung location: lower lobe of lung Pneumonia type: aspiration pneumonia Qualified Code(s): J69.0 - Pneumonitis due to inhalation of food and vomit
[2019-04-26] MEDS: NICOTINE 21 MG/24 HR TDSY TD SCH (20:45)
[2019-04-26] MEDS ORDERED: PEPTAMEN 1.5 CAL 1,000 ML BAG PO SCH (21:00)
[2019-04-27 07:25] LABS: BUN Creatinine Ratio 31.5 (10-20); Blood Urea Nitrogen 11 mg/dl (7-18); Calcium 9.6 mg/dl (8.5-10.1); Carbon Dioxide 30 mmol/L (21-32); Chloride 105 mmol/L (98-107); Creatinine Clr Calc Pharmacy 122.8 ml/min; Est GFR (African American) > 150.0; Est GFR (Non-African American) 132.1; Glucose 85 mg/dl (70-99); Potassium 3.6 mmol/L (3.5-5.1); Sodium 140 mmol/L (136-145)
[2019-04-27] MEDS: FLUTICASONE/SALMETEROL 100/50 (ADVAIR) 14 PUFF/1 INHALER INH SCH ×2 (07:45→21:40)
[2019-04-27] MEDS: TIOTROPIUM BROMIDE 5 PUFF/90 MCG INH INH SCH (07:47)
[2019-04-27] MEDS: ENOXAPARIN INJ 40 MG/0.4 ML SYR SQ SCH (07:49)
--- NOTE | 2019-04-27 07:57 | Hospitalist Progress Note ---
Date of Service April 27, 2019 Assessment & Plan (1) Bilateral pneumonia: 43 yo F admitted for trouble swallowing and shortness of breath found to have esophageal dysmotility and aspiration pneumonia. For PEG-J tube today by Dr. Echols. Failure to thrive, severe protein malnutrition, NG tube failure in the setting of esophageal dysmotility: - CT scan, swallow study, and EGD demonstrated high propensity for aspiration given lack of esophageal motion. - Auto immune workup negative. Would consider a possible seronegative process here as pt's workup to date has been negative. - Dr. Hurtado with [facility] this PM placing PEG-J tube. Per his verbal recommendations: 4-6 hours following tube placement can trial with free water, then tomorrow AM begin tube feedings and advance as tolerated by the patient. - Patient will need esophageal manometry outpatient for the confirmation of the lack of motility of the esophagus. - Will also require close follow up with Dr. Fang as she does not have a PCP and would like to follow with Dr. Fang moving forward. Acute hypoxic respiratory failure in the setting of aspiration pneumonia: - resolved. - This all seems likely 2/2 the esophageal dysmotility, and subsequent aspiration of oropharyngeal contents. - Continued Albuterol PRN; continued Advair diskus and Spiriva for COPD, as these are closest to what she will be covered for insurance-duarte after discharge (Breo Ellipta 100-25 1 puff daily, and Incruse Ellipta 62.5 1 puff daily). Educated pt on importance of quitting smoking marijuana to prevent further damage to her lungs. - Azithromycin completed 04/26/19. Pt without pulmonary symptoms and continues to be afebrile. Diet: NPO; tube feeding to resume tomorrow AM Code: Full DVT PPx: SCDs Dispo: Med/Surg (2) Hypokalemia: (3) Severe protein-calorie malnutrition: Supervising Physician Co-Signing Physician Notes Patient seen and examined with PGY-1 Dr. Conner. Agree with history, exam findings, assessment and plan of care as outlined. In brief, Ms. Pryor is a 43 year old female with history of recurrent pneumonia admitted for aspiration pneumonia/bilateral pneumonia. Hoping to have PEG-J placed today with interventional GI. Vitals signs and nursing notes reviewed. Ill appearing. NGT in place without skin breakdown. Poor dentition. 1. bilateral lower lobe pneumonia 2/2 aspiration from dysphagia and esophageal dysmotility. Now off O2. 2. Dilated esophagus with dysphagia and aspiration--esophageal dysmotility. Residuals high with NG and not at goal TF rate. Needs Jejeunal feeding--PEG-J done today with GI. Appreciate their assistance with this. Will start with free water at a low rate 4-6 hours after procedure is complete then resume TFs in the morning at 15/h and titrate up as tolerated. 3. severe protein calorie malnutrition. Continue to try to get nutrition via tube feeds as we are able. 4. Anemia. Monitor, but consider folate, b12, and iron given her severe malnutrition. Other chronic issues are stable and home medications continued. Dispo: pending titration of TFs. Appreciate care management assisting with any set up for home TFs on discharge. Subjective Pt without acute events overnight. No nausea or vomiting, no abdominal pain. No SOB, CP, palpitations. Per nursing no residual with last tube feeding session @30mL/hr. Review of Systems Constitutional: no fever, no chills and no malaise Respiratory: no cough and no dyspnea Cardiovascular: no chest pain, no palpitations and no edema Gastrointestinal: no abdominal pain, no constipation and no diarrhea/loose stools Physical Exam Constitutional: + ill appearing, + thin, + cachectic and + disheveled Respiratory: normal respiratory effort, lungs clear to auscultation Cardiovascular: RRR, no murmur, no edema Gastrointestinal (Abdomen): normal bowel sounds, soft, nontender, no hepatosplenomegaly Skin: no rashes, warm and dry Psychiatric: A+Ox3, euthymic affect Results & Data Vital Signs (Past 12 Hours) Vital Signs Temp Pulse Resp BP Pulse Ox 04/27/19 07:24 36.6 C 65 18 94/57 L 95 04/26/19 22:59 36.8 C 76 18 104/65 96 Laboratory Results Laboratory Results - last 24 hr 04/26/19 04/26/19 04/26/19 13:38 18:50 23:38 Sodium Potassium Chloride Carbon Dioxide Anion Gap BUN Creatinine Est Cr Clr Drug Dosing Est GFR ( Amer) Est GFR (Non-Af Amer) BUN/Creatinine Ratio Glucose POC Glucose 108 H 99 94 Calcium 04/27/19 04/27/19 05:55 06:39 Sodium 140 Potassium 3.6 Chloride 105 Carbon Dioxide 30 Anion Gap 5.0 BUN 11 Creatinine 0.36 L Est Cr Clr Drug Dosing 122.8 Est GFR ( Amer) > 150.0 Est GFR (Non-Af Amer) 132.1 BUN/Creatinine Ratio 31.5 H Glucose 85 POC Glucose 86 Calcium 9.6 Medications Administered Current Medications Al Hydrox/Mg Hydrox/Simethicone (Maalox) 15 ml PO Q4H PRN PRN Reason: Dyspepsia Stop: 05/17/19 19:53 Albuterol (Ventolin Hfa) 2 puffs INH QID PRN PRN Reason: Shortness Of Breath Stop: 05/17/19 19:53 Albuterol (Duoneb) 3 ml NEB Q4R PRN PRN Reason: Shortness Of Breath Stop: 05/17/19 22:59 Enoxaparin Sodium (Lovenox) 40 mg SQ QAM [facility] Stop: 05/18/19 08:59 Last Admin: 04/27/19 07:49 Dose: 40 mg Documented by: Enteral Nutritional Formula (Peptamen 1.5 [place]) 1,000 ml PO DAILY@2100 [facility]; Protocol Stop: 05/26/19 20:59 Last Admin: 04/26/19 21:59 Dose: 1,000 ml Documented by: Famotidine 20 mg/ Syringe 5 mls @ 2.5 mls/min IV BID [facility] Stop: 05/19/19 20:59 Last Admin: 04/27/19 08:52 Dose: 2.5 mls/min Documented by: Dextrose (D10w) 1,000 mls @ 0 mls/hr IV .Q0M [facility] Stop: 05/20/19 15:59 Last Infusion: 04/26/19 03:40 Dose: Infused Documented by: Magnesium Hydroxide (Milk Of Magnesia) 30 ml PO Q12H PRN PRN Reason: Constipation Stop: 05/17/19 19:53 Miscellaneous (Remove Nicoderm Patch) 1 ea N/A DAILY@2058 [facility] Stop: 05/18/19 20:58 Last Admin: 04/26/19 20:45 Dose: 1 ea Documented by: Miscellaneous (Stop Order) 1 ea N/A DAILY@0900 [facility] Stop: 05/27/19 08:59 Last Admin: 04/27/19 07:55 Dose: 1 ea Documented by: Nicotine (Nicoderm Cq) 21 mg TD HS [facility] Stop: 05/17/19 20:59 Last Admin: 04/26/19 20:45 Dose: 21 mg Documented by: Polyethylene Glycol (Miralax Powder Packet) 17 gm PO DAILY PRN PRN Reason: Constipation Stop: 05/17/19 19:53 Fluticasone/Salmeterol (Advair Diskus 100/50) 1 puffs INH BID [facility] Stop: 05/18/19 20:59 Last Admin: 04/27/19 07:45 Dose: 1 puffs Documented by: Tiotropium [place] (Spiriva) 1 puffs INH QAM [facility] Stop: 05/18/19 10:59 Last Admin: 04/27/19 07:47 Dose: 1 puffs Documented by: Resident Activity Tracking Resident Involvement: Resident Care Provided Care Provided: Adult Hospital Medicine (1) Bilateral pneumonia Aspiration pneumonia type: unspecified Lung location: lower lobe of lung Pneumonia type: aspiration pneumonia Qualified Code(s): J69.0 - Pneumonitis due to inhalation of food and vomit
[2019-04-27] MEDS: FAMOTIDINE 20 MG in SYRINGE 3 ML IV SCH ×2 (08:52→21:44)
[2019-04-27] MEDS ORDERED: [UNRECOGNIZED DRUG - REMARK] SCH (09:00)
[2019-04-27] MEDS ORDERED: KETAMINE HCL INJ 50 MG/ML 10 ML VIAL ONE (13:16)
[2019-04-27] MEDS ORDERED: ONDANSETRON INJ 2 MG/ML 2 ML VIAL ONE (13:16)
[2019-04-27] MEDS ORDERED: MIDAZOLAM HCL 1 MG/ML 2ML VIAL ONE (13:16)
[2019-04-27] MEDS ORDERED: PROPOFOL IV EMULSION 10 MG/ML 20 ML VIAL IV ONE ×2 (13:16→14:19)
--- NOTE | 2019-04-27 13:17 | Anesthesiology Consultation ---
Date of Service April 27, 2019 Assessment & Plan (1) Encounter for pre-operative examination: History Surgery Operation Date: 04/19/19 17:45 Proposed Procedures p Esophagogastroduodenoscopy Dr. Shanice Prasad MD Operation Date: 04/27/19 13:10 Proposed Procedures p Peg Tube Placement Dr Bryant Hurtado MD Height/Weight Height: 5 ft 4 in Weight: 38.6 kg Allergies Allergy/AdvReac Type Severity Reaction Status Date / Time No Known Allergies Allergy Verified 04/17/19 15:16 Medications Home Medications Medication Instructions Recorded Confirmed Last Taken albuterol sulfate 2 puff INHALATION QID PRN 02/08/18 04/17/19 09/21/18 Active Medications Generic Name Dose Route Start Last Admin Trade Name Freq PRN Reason Stop Dose Admin Enoxaparin Sodium 40 mg 04/18/19 09:00 04/27/19 07:49 Lovenox SQ 05/18/19 08:59 40 mg QAM [facility] Administration Enteral Nutritional Formula 1,000 ml 04/26/19 21:00 04/26/19 21:59 Peptamen 1.5 [place] PO 05/26/19 20:59 1,000 ml DAILY@2100 [facility] Administration Protocol Famotidine 20 mg/ Syringe 5 mls @ 2.5 mls/min 04/19/19 21:00 04/27/19 08:52 IV 05/19/19 20:59 2.5 mls/min BID [facility] Administration Dextrose 1,000 mls @ 0 mls/hr 04/20/19 16:00 04/26/19 03:40 D10w IV 05/20/19 15:59 Infused .Q0M [facility] Infusion Per Protocol Miscellaneous 1 ea 04/18/19 20:59 04/26/19 20:45 Remove Nicoderm Patch N/A 05/18/19 20:58 1 ea DAILY@2058 [facility] Administration Miscellaneous 1 ea 04/27/19 09:00 04/27/19 07:55 Stop Order N/A 05/27/19 08:59 1 ea DAILY@0900 [facility] Administration Nicotine 21 mg 04/17/19 21:00 04/26/19 20:45 Nicoderm Cq TD 05/17/19 20:59 21 mg HS [facility] Administration Fluticasone/Salmeterol 1 puffs 04/18/19 21:00 04/27/19 07:45 Advair Diskus 100/50 INH 05/18/19 20:59 1 puffs BID [facility] Administration Tiotropium [place] 1 puffs 04/18/19 11:00 04/27/19 07:47 Spiriva INH 05/18/19 10:59 1 puffs QAM [facility] Administration NPO Date Last Intake of Fluids: 04/17/19 Time Last Intake of Fluids: 15:00 Date Last Intake of Solids: 04/17/19 Time Last Intake of Solids: 15:00 Past Medical History Medical History (Updated 04/27/19 @ 13:17 by Rosibel Gaona MD) Anxiety (Chronic) Arthritis (Chronic) Constipation (Chronic) COPD (chronic obstructive pulmonary disease) (Chronic) Depression (Chronic) Difficulty chewing (Resolved) Difficulty swallowing (Resolved) Marijuana smoker (Chronic) Ovarian cyst (Resolved) Poor dentition (Chronic) Scoliosis (Chronic) Tobacco abuse (Chronic) Past Family History Family History Other Family history non-contributory Past Surgical History Surgical History History of esophagogastroduodenoscopy (EGD) (Resolved) Social History Smoking Status: Current every day smoker tobacco type: cigarettes Smoking cigarettes per day: 1 PACK/DAY Hx Alcohol Use: No Hx Substance Use: No Physical Exam Vital Signs Last Vital Signs Temp 36.6 C 04/27/19 07:24 Pulse 65 04/27/19 07:24 Resp 18 04/27/19 07:24 BP 94/57 L 04/27/19 07:24 Pulse Ox 95 04/27/19 07:24 Testing Laboratory Results 04/26/19 05:44 04/27/19 06:39 04/17/19 16:52 Aerobic Blood Culture - Final Blood No growth in Aerobic bottle after 5 days. Anaerobic Blood Culture - Final No growth in Anaerobic bottle after 5 days. 04/17/19 16:45 Aerobic Blood Culture - Final Blood No growth in Aerobic bottle after 5 days. Anaerobic Blood Culture - Final No growth in Anaerobic bottle after 5 days. 04/27/19 04/27/19 11:17 05:55 POC Glucose 101 H 86 04/19/19 11:55 POC Ur Test NEG Electrocardiogram Date: 04/18/19 Sinus tachycardia Left axis deviation Left bundle branch block Abnormal ECG When compared with ECG of 17-APR-2019 14:59, No significant change was found Confirmed by Wong Briggs ([id number]) on 04/19/2019 6:08:20 AM Chest X-Ray Date: 04/18/19 Mild bibasilar opacities, greater on the left. The findings could reflect pneumonia or atelectasis. Radiographic follow-up is recommended to ensure resolution.
[2019-04-27] MEDS ORDERED: CEFAZOLIN 1000MG 1,000 MG/7.5 ML SYR IV STA (13:23)
--- NOTE | 2019-04-27 13:42 | Progress Note ---
Date of Service April 27, 2019 Subjective I was requested to consult on the patient by the hospitalist for PEG- J or PEJ tube placement for dysphagia due to esophageal aperistalisis and recurrent aspirations. She was seen by surgery who declined surgical placement due to malnutrition and risk of wound complications. I discussed with the patient in details about the procedure, my plan is to go for PEG-J as this has less risk of complications, better healing and suffices the purpose of feeding directly into the jejunum and also can be used to vent and decompress the stomach if needed. I explained the risk, benefit and alternatives, risk of bleeding, infection, perforation and barried bumper causing peritonitis. She understood and agreed. I called her mother and informed her about the above. Results & Data Vital Signs (Past 12 Hours) Vital Signs Temp Pulse Resp BP Pulse Ox 04/27/19 07:24 36.6 C 65 18 94/57 L 95
[2019-04-27] MEDS ORDERED: ePHEDrine sulfate 50 MG/ML AMP IV PRN (13:49)
[2019-04-27] MEDS ORDERED: HYDROmorphone INJ 1 MG/ML SYRINGE IV PRN (13:49)
[2019-04-27] MEDS ORDERED: ATROPINE SULFATE 0.1 MG/ML 10ML SYR IV PRN (13:49)
[2019-04-27] MEDS ORDERED: ONDANSETRON INJ 2 MG/ML 2 ML VIAL IV PRN (13:49)
[2019-04-27] MEDS ORDERED: CEFAZOLIN 250 MG/ML 1 GM VIAL ONE (14:19)
--- NOTE | 2019-04-27 14:57 | Operative Report ---
Post Operative Report Pre & Post Diagnosis Operation Date: 04/19/19 17:45 Pre-Op Diagnosis: dilated esophagus, dysphagia Post-Op Diagnosis: dysphagia Operation Date: 04/27/19 13:10 Pre-Op Diagnosis: dysphagia Post-Op Diagnosis: dysphagia I identified the patient and participated in the time-out.: Yes Procedure Operation Date: 04/19/19 17:45 Actual Procedures p Esophagogastroduodenoscopy - Fracisco Prasad MD Operation Date: 04/27/19 13:10 Actual Procedures p EGD and PEG-J tube placement(Not Applicable) - Aida Hurtado MD Surgeon Aida Hurtado MD Clinical Studies Specialist None Estimated Blood Loss 0 Findings See Below (PEG-J tube placement) Specimens None Description of Procedure EGD I attest to the content of the Intraoperative Record and any orders documented therein. Any exceptions are noted below.
--- NOTE | 2019-04-27 15:14 | GI REPORT ---
Patient Name: Loulou Pryor Procedure Date: 04/27/2019 1:30 PM Date of : 1975 Admit Type: Inpatient Age: 43 Gender: Female Attending MD: Aida Hurtado MD Procedure: Upper GI endoscopy Providers: Aida Hurtado MD Referring MD: Barbara Conner Do, Bryce Torrez, Fracisco Prasad MD, Loyd Alicea Indications: Place PEG-J because patient is unable to eat, dysphagia, impaired swallowing and aspiration risk. Medicines: Propofol per Anesthesia Complications: No immediate complications. Estimated Blood Loss: Estimated blood loss: none. Procedure: Pre-Anesthesia Assessment: - Prior to the procedure, a History and Physical was performed, and patient medications, allergies and sensitivities were reviewed. The patient's tolerance of previous anesthesia was reviewed. - The risks and benefits of the procedure and the sedation options and risks were discussed with the patient. All questions were answered and informed consent was obtained. - Patient identification and proposed procedure were verified prior to the procedure by the physician and the nurse. The procedure was verified in the procedure room. - Pre-procedure physical examination revealed no contraindications to sedation. After obtaining informed consent, the endoscope was passed under direct vision. Throughout the procedure, the patient's blood pressure, pulse, and oxygen saturations were monitored continuously. The Endoscope was introduced through the mouth, and advanced to the fourth part of duodenum. The upper GI endoscopy was accomplished without difficulty. The patient tolerated the procedure well. Findings: The examined esophagus was normal. The entire examined stomach was normal. The duodenal bulb, second portion of the duodenum, third portion of the duodenum and fourth portion of the duodenum were normal. The patient was placed in the supine position for PEG placement. The stomach was insufflated to appose gastric and abdominal huffman. A site was located in the body of the stomach with excellent transillumination and manual external pressure for placement. The abdominal wall was marked and prepped in a sterile manner. The area was anesthetized with 2 mL of 1% lidocaine. The trocar needle was introduced through the abdominal wall and into the stomach under direct endoscopic view. A snare was introduced through the endoscope and opened in the gastric lumen. The guide wire was passed through the trocar and into the open snare. The snare was closed around the guide wire. The endoscope and snare were removed, pulling the wire out through the mouth. A skin incision was made at the site of needle insertion. The externally removable 24 Fr Yo-Cook gastrostomy tube was lubricated. The G-tube was tied to the guide wire and pulled through the mouth and into the stomach. The trocar needle was removed, and the gastrostomy tube was pulled out from the stomach through the skin. The external bumper was attached to the gastrostomy tube, and the tube was cut to remove the guide wire. The final position of the gastrostomy tube was confirmed by relook endoscopy, and skin marking noted to be 2 cm at the external bumper. The final tension and compression of the abdominal wall by the PEG tube and external bumper were checked and revealed that the bumper was moderately tight and mildly deforming the skin. A 12 Fr Yo-Cook tube was then passed through the gastric tube and advanced endoscopically to the proximal jejunum. Appropriate position of the tip of the tube was confirmed endoscopically and then secured to the bowel wall with three endoclips and Prolene suture. The feeding tube was capped, and the tube site cleaned and dressed. Impression: - Normal esophagus. - Normal stomach. - Normal duodenal bulb, second portion of the duodenum, third portion of the duodenum and fourth portion of the duodenum. - An externally removable PEG-J placement was successfully completed. Tip of the tube was clipped to the small bowel wall. Recommendation: - Return patient to [facility] for ongoing care. - Please follow the post-PEG recommendations including: Nutrition consult for formula and volume, dry dressing only, NPO x4 hrs then water today and may use PEG-J tomorrow for feedings. - No aspirin, ibuprofen, naproxen, or other non-steroidal anti-inflammatory drugs for 5 days. - Follow an antireflux and aspiration precautions regimen. - Please notify me directly if any issues related to the tube. Aida Hurtado MD 04/27/2019 3:13:55 PM This report has been signed electronically. Note Initiated On: 04/27/2019 1:30 PM Number of Addenda: 0 I attest to the content of the Intraoperative Record and orders documented therein, exceptions below {[id number]}
[2019-04-27] MEDS: fentaNYL citrate 100 MCG/2 ML VIAL IV PRN ×2 (15:16→15:21)
--- NOTE | 2019-04-27 15:43 | Anesthesiology Progress Note ---
Date of Service April 27, 2019 Anesthesia Post Procedure Vital Signs Vital Signs: Temp Pulse Pulse Resp BP Pulse Ox 04/27/19 15:30 71 16 114/73 100 04/27/19 15:20 70 18 114/72 100 04/27/19 15:10 72 18 109/68 100 04/27/19 15:01 36.0 C L 79 14 104/64 100 04/27/19 07:24 36.6 C 65 18 94/57 L 95 04/26/19 22:59 36.8 C 76 18 104/65 96 Transfer of Care Handoff Completed per policy Notes Mental Status: alert / awake / arousable and participated in evaluation Patient Amnestic to Procedure: Yes Nausea / Vomiting: adequately controlled Pain: adequately controlled Airway Patency, RR, SpO2: stable & adequate BP & HR: stable & adequate Hydration State: stable & adequate Anesthetic Complications: no major complications apparent and Pt Satisfied with anesthetic care
[2019-04-27] MEDS ORDERED: MoRPHine SULFATE 2 MG/ML CARP IV PRN (16:58)
[2019-04-27] MEDS ORDERED: Nursing to Pharmacy Communication ONE (17:22)
[2019-04-27] MEDS: D5W AND 1/2NSS + 20MEQ KCL 20 MEQ/1,000 ML BAG IV SCH (18:07)
[2019-04-27] MEDS ORDERED: KETOROLAC TROMETHAMINE 15 MG/ML VIAL IV PRN (18:24)
[2019-04-27] MEDS: MoRPHine SULFATE 2 MG/ML CARP IV PRN (19:45)
[2019-04-27] MEDS: TUBE FEEDING WATER FLUSH NG SCH (21:16)
[2019-04-27] MEDS: NICOTINE 21 MG/24 HR TDSY TD SCH (21:41)
[2019-04-28] MEDS: TUBE FEEDING WATER FLUSH NG SCH ×4 (03:17→20:20)
[2019-04-28] MEDS: MoRPHine SULFATE 2 MG/ML CARP IV PRN ×4 (03:17→12:19)
[2019-04-28] MEDS: D5W AND 1/2NSS + 20MEQ KCL 20 MEQ/1,000 ML BAG IV SCH ×2 (06:02→18:27)
[2019-04-28 06:53] LABS: Basophils # (auto) 0.02 K/uL (0-0.2); Basophils % (auto) 0.3 %; Eosinophils # (auto) 0.16 K/uL (0-0.5); Eosinophils % (auto) 2.2 %; Hematocrit (blood only) 32.9 % (37-47); Hemoglobin 10.1 g/dL (12.0-16.0); Immature Granulocytes # (auto) 0.02 K/uL (0.00-0.02); Immature Granulocytes % (auto) 0.3 %; Lymphocytes % (auto) 29.6 %; Mean Corpuscular Hemoglobin 27.3 pg (25-34); Mean Corpuscular Hgb Conc 30.7 g/dL (32-36); Mean Corpuscular Volume 88.9 fL (80-100); Mean Platelet Volume 9.4 fL (7.4-10.4); Monocytes # (auto) 0.63 K/uL (0.11-0.59); Monocytes % (auto) 8.5 %; Neutrophils # (auto) 4.41 K/uL (1.4-6.5); Neutrophils % (auto) 59.1 %; Platelet Count 270 K/uL (130-400); White Blood Count 7.44 K/uL (4.8-10.8)
[2019-04-28 07:33] LABS: Calcium 9.3 mg/dl (8.5-10.1); Creatinine Clr Calc Pharmacy 115.4 ml/min; Est GFR (African American) 149.1; Est GFR (Non-African American) 128.6; Potassium 3.8 mmol/L (3.5-5.1)
[2019-04-28] MEDS: ENOXAPARIN INJ 40 MG/0.4 ML SYR SQ SCH (07:46)
[2019-04-28] MEDS: FLUTICASONE/SALMETEROL 100/50 (ADVAIR) 14 PUFF/1 INHALER INH SCH ×2 (07:47→20:37)
[2019-04-28] MEDS: TIOTROPIUM BROMIDE 5 PUFF/90 MCG INH INH SCH (09:07)
[2019-04-28] MEDS: FAMOTIDINE 20 MG in SYRINGE 3 ML IV SCH ×2 (09:08→20:44)
--- NOTE | 2019-04-28 09:13 | Hospitalist Progress Note ---
Date of Service April 28, 2019 Assessment & Plan (1) Hypoxia: 43 yo F admitted for trouble swallowing and shortness of breath found to have esophageal dysmotility and aspiration pneumonia. PEG-J placed 04/27/18, this afternoon with shortness of breath and hypoxia. Hypoxia: - After admission of a dose of morphine pt used call choi and complained of SOB; SpO2 at that time was mid 70s; on 4LNC was 88-90%. With addition of NC pt felt less SOB. - Pt explained that yesterday after her procedure she woke up with tooth fragments in her mouth. - Lung exam was significant for shallow air movement with some upper airway sounds. CXR performed; showed atelectasis but no foreign body or consolidation. - Pt's Wells score 4; CTPE performed which showed pneumomediastinum consistent with post-op, Trace pneumomediastinum; multifocal mucous plugging, some worsening atelectasis, and nodules suggestive of likely inflammatory pneumonitis. No evidence of PE. - After severely productive coughing spells pt's O2 saturation increased to 92% on RA. Following this coughing episode on my third visit pt appears brighter, more alert, and more well than she has been since she came into my care on Thursday. - Educated patient extensively on the importance of deep breathing to help clear her atelectasis, as well as the importance of using her incentive spirometer. Pt verbalized understanding. - Respiratory to administer Mucomyst BID with nebs, as well as perform chest percussion and flutter valve. Failure to thrive, severe protein malnutrition, NG tube failure in the setting of esophageal dysmotility: - CT scan, swallow study, and EGD demonstrated high propensity for aspiration given lack of esophageal motion. - Dr. Hurtado with [facility] placed PEG-J tube yesterday. Pt now tolerating tube feeds at 30mL/hr with increases by 10mL every 4 hours as tolerated to a goal of 80mL/hr for 12 hours a day. - Patient will need esophageal manometry outpatient for the confirmation of the lack of motility of the esophagus. - Will also require close follow up with Dr. Fang as she does not have a PCP and would like to follow with Dr. Fang moving forward. Aspiration pneumonia in a patient with COPD: - resolved. - This all seems likely 2/2 the esophageal dysmotility, and subsequent aspiration of oropharyngeal contents. - Continued Albuterol PRN; continued Advair diskus and Spiriva for COPD, as these are closest to what she will be covered for insurance-duarte after discharge (Breo Ellipta 100-25 1 puff daily, and Incruse Ellipta 62.5 1 puff daily). Educated pt on importance of quitting smoking marijuana to prevent further damag e to her lungs. - Azithromycin completed 04/26/19. Pt without pulmonary symptoms and continues to be afebrile. Diet: NPO; tolerating feeds at 30mL/hr currently with intent to increase slowly by 10mL intervals every 4 hours Code: Full DVT PPx: SCDs Dispo: Med/Surg (2) Severe protein-calorie malnutrition: (3) Hypokalemia: (4) Aspiration pneumonia: (5) Dilation of esophagus: (6) Dysphagia: (7) Anxiety: (8) Depression: (9) Poor dentition: Supervising Physician Co-Signing Physician Notes Patient seen and examined with PGY-1 Dr. Conner. Agree with history, exam findings, assessment and plan of care as outlined. In brief, Ms. Pryor is a 43 year old female with history of recurrent pneumonia admitted for aspiration pneumonia/bilateral pneumonia. PEG-J placed yesterday with [employer] . Reports some pain in the area of the PEG button, melvin when she coughs. Did have an episode of desaturation to the 70s in bed and was placed on 4L O2. Vitals signs and nursing notes reviewed. Ill appearing. PEG site looks good. No leak. Soft tissue around the button is tender, but non-erythematous. She is taking shallow breaths. 1. bilateral lower lobe pneumonia 2/2 aspiration from dysphagia and esophageal dysmotility. Off antibiotics. 2. new O2 requirement. CXR with atelectasis but no new consolidations. CTA negative for PE, but significant for mucus plugging and atelectasis. 3. Dilated esophagus with dysphagia and aspiration--esophageal dysmotility. PEG- J placed on 04/27. Starting to titrate up on TFs. Appreciate nutrition assistance. Discussed with manav, Bria, that she does not need to continue to see speech in the hospital. Speech did put in discharge recommendations for intensive speech therapy as an outpatient. Underlying cause of this is still unclear. 4. severe protein calorie malnutrition. Continue to try to get nutrition via tube feeds as we are able. 5. Anemia. Monitor, but consider folate, b12, and iron given her severe malnutrition. Other chronic issues are stable and home medications continued. Dispo: pending titration of TFs. Appreciate care management assisting with any set up for home TFs on discharge. Patient will be following up with Dr. Fang as new PCP in the outpatient setting. Subjective Pt without acute events overnight. This morning reported that pain well controlled with morphine q2h. No nausea or vomiting, and pt tolerated water flushing of her PEG-J without issue. Some abdominal pain at PEG-J site. No CP, SOB, palpitations. Paged at 12:30PM by nursing that patient was SOB and with O2 saturation of 70% on room air, increased to 88% on 4LNC. Review of Systems Constitutional: no fever, no chills and no malaise Respiratory: + dyspnea (this afternoon) Cardiovascular: no chest pain, no palpitations and no edema Gastrointestinal: + abdominal pain (at PEG-J site); no constipation and no diarrhea/loose stools Genitourinary: no dysuria and no hematuria Physical Exam Constitutional: WD/WN, vitals as above Respiratory: Shallow air movement; pt resistant to taking deep breaths due to the abdominal pain she experiences when deep breathing or coughing. Some basilar crackles. Cardiovascular: RRR, no murmur, no edema Gastrointestinal (Abdomen): Inspection/Auscultation: normal bowel sounds Percussion/Palpation: abdomen soft PEG-J site with bandage that is clean, dry, intact. No purulent drainage from site. No surrounding erythema or swelling. Skin: no rashes, warm and dry Psychiatric: A+Ox3, euthymic affect Results & Data Vital Signs (Past 12 Hours) Vital Signs Temp Pulse Resp BP Pulse Ox 04/28/19 07:15 36.7 C 70 14 93/56 L 92 04/28/19 06:00 94 04/28/19 03:10 36.8 C 77 16 110/69 99 04/27/19 23:00 36.7 C 85 16 106/70 100 Laboratory Results Laboratory Results - last 24 hr 04/27/19 04/27/19 04/28/19 11:17 18:12 06:17 WBC RBC Hgb Hct MCV MCH MCHC RDW Std Deviation RDW Coeff of Abhishek Plt Count MPV Immature Gran % (Auto) Neut % (Auto) Lymph % (Auto) Eagle % (Auto) Eos % (Auto) Baso % (Auto) Immature Gran # (Auto) Neut # (Auto) Lymph # (Auto) Eagle # (Auto) Eos # (Auto) Baso # (Auto) Sodium Potassium Chloride Carbon Dioxide Anion Gap BUN Creatinine Est Cr Clr Drug Dosing Est GFR ( Amer) Est GFR (Non-Af Amer) BUN/Creatinine Ratio Glucose POC Glucose 101 H 91 99 Calcium 04/28/19 04/28/19 06:29 06:29 WBC 7.44 RBC 3.70 L Hgb 10.1 L Hct 32.9 L MCV 88.9 MCH 27.3 MCHC 30.7 L RDW Std Deviation 49.0 H RDW Coeff of Abhishek 15.0 H Plt Count 270 MPV 9.4 Immature Gran % (Auto) 0.3 Neut % (Auto) 59.1 Lymph % (Auto) 29.6 Eagle % (Auto) 8.5 Eos % (Auto) 2.2 Baso % (Auto) 0.3 Immature Gran # (Auto) 0.02 Neut # (Auto) 4.41 Lymph # (Auto) 2.20 Eagle # (Auto) 0.63 H Eos # (Auto) 0.16 Baso # (Auto) 0.02 Sodium 140 Potassium 3.8 Chloride 105 Carbon Dioxide 31 Anion Gap 4.0 BUN 5 L D Creatinine 0.39 L Est Cr Clr Drug Dosing 115.4 Est GFR ( Amer) 149.1 Est GFR (Non-Af Amer) 128.6 BUN/Creatinine Ratio 14.0 Glucose 97 POC Glucose Calcium 9.3 Medications Administered Current Medications Al Hydrox/Mg Hydrox/Simethicone (Maalox) 15 ml PO Q4H PRN PRN Reason: Dyspepsia Stop: 05/17/19 19:53 Albuterol (Ventolin Hfa) 2 puffs INH QID PRN PRN Reason: Shortness Of Breath Stop: 05/17/19 19:53 Albuterol (Duoneb) 3 ml NEB Q4R PRN PRN Reason: Shortness Of Breath Stop: 05/17/19 22:59 Enoxaparin Sodium (Lovenox) 40 mg SQ QAM SARITA Stop: 05/18/19 08:59 Last Admin: 04/28/19 07:46 Dose: 40 mg Documented by: Enteral Nutritional Formula (Peptamen 1.5 Murray) 1,000 ml PO DAILY@0700 [facility]; Protocol Stop: 05/28/19 06:59 Famotidine 20 mg/ Syringe 5 mls @ 2.5 mls/min IV BID [facility] Stop: 05/19/19 20:59 Last Admin: 04/28/19 09:08 Dose: 2.5 mls/min Documented by: Dextrose (D10w) 1,000 mls @ 0 mls/hr IV .Q0M [facility] Stop: 05/20/19 15:59 Last Infusion: 04/26/19 03:40 Dose: Infused Documented by: Potassium Chloride/Dextrose/Sod Cl (D5w And 1/2nss + 20meq Kcl) 20 meq in 1,000 mls @ 80 mls/hr IV .[id number] [facility] Stop: 05/27/19 16:59 Last Admin: 04/28/19 06:02 Dose: 80 mls/hr Documented by: Acetaminophen (Ofirmev) 65 mls @ 200 mls/hr IV Q8H PRN; Protocol PRN Reason: Moderate Pain Stop: 05/01/19 07:19 Magnesium Hydroxide (Milk Of Magnesia) 30 ml PO Q12H PRN PRN Reason: Constipation Stop: 05/17/19 19:53 Miscellaneous (Remove Nicoderm Patch) 1 ea N/A DAILY@2058 [facility] Stop: 05/18/19 20:58 Last Admin: 04/27/19 21:40 Dose: 1 ea Documented by: Miscellaneous (Stop Order) 1 ea N/A DAILY@1900 [facility] Stop: 05/28/19 18:59 Morphine Sulfate (Morphine Sulfate) 2 mg IV Q2H PRN PRN Reason: moderate to severe pain Stop: 05/11/19 16:57 Last Admin: 04/28/19 07:43 Dose: 2 mg Documented by: Nicotine (Nicoderm Cq) 21 mg TD HS [facility] Stop: 05/17/19 20:59 Last Admin: 04/27/19 21:41 Dose: 21 mg Documented by: Polyethylene Glycol (Miralax Powder Packet) 17 gm PO DAILY PRN PRN Reason: Constipation Stop: 05/17/19 19:53 Fluticasone/Salmeterol (Advair Diskus 100/50) 1 puffs INH BID [facility] Stop: 05/18/19 20:59 Last Admin: 04/28/19 07:47 Dose: 1 puffs Documented by: Sterile Water (Tube Feeding Water Flush) 1 ea NG Q6H [facility] Stop: 05/27/19 20:29 Last Admin: 04/28/19 03:17 Dose: 1 ea Documented by: Tiotropium [place] (Spiriva) 1 puffs INH QAM [facility] Stop: 05/18/19 10:59 Last Admin: 04/28/19 09:07 Dose: 1 puffs Documented by: Resident Activity Tracking Resident Involvement: Resident Care Provided Care Provided: Adult Hospital Medicine
[2019-04-28] MEDS: PEPTAMEN 1.5 CAL 1,000 ML BAG PO SCH ×2 (09:16→11:23)
[2019-04-28] MEDS: PEPTAMEN 1.5 CAL 1,000 ML BAG JT SCH (12:00)
--- NOTE | 2019-04-28 13:48 | XRay Report ---
XR chest 1V portable HISTORY: increased oxygen demand COMPARISON: Chest 04/17/2019. FINDINGS: Bibasilar linear densities are noted. This has improved on the left. Several lung zones are clear. Emphysema. The heart is borderline enlarged. No pleural effusions. No pneumothorax. IMPRESSION: Bibasilar linear densities which have improved on the left. This favors atelectasis. ACT 112: Negative or not required by law. Electronically signed by: Aden Connolly M.D. 04/28/2019 1:47 PM
[2019-04-28] MEDS ORDERED: OPTIRAY 320 125ml IV PRN (14:39)
[2019-04-28] MEDS ORDERED: MoRPHine SULFATE 2 MG/ML CARP IV PRN (14:47)
--- NOTE | 2019-04-28 15:12 | CT Scan Report ---
CT angio chest PE protocol CT DOSE: 236.20 mGy.cm HISTORY: 43 years-old Female with PE. Acute shortness of breath TECHNIQUE: Multiple CTA images of the chest were obtained after the intravenous administration of 120 ml Optiray 320. Coronal and sagittal MIPS were obtained from the axial data set and were submitted for review. All measurements were obtained according to NASCET criteria. A dose lowering technique w as utilized adhering to the principles of ALARA. COMPARISON: Chest radiograph of same day, CT chest 06/11/2018, CTA chest 06/13/2016 FINDINGS: CTA: Heart is upper limits of normal in size. No pericardial effusion. Thoracic aorta is normal in course and caliber without aneurysm or dissection. Patency of the imaged great vessels. Pulmonary artery is opacified to the level of the subsegmental branches and demonstrates no filling defects to suggest pu lmonary thromboembolic disease. CT CHEST: Unremarkable thyroid. No definite adenopathy by CT size criteria. No pneumothorax or pleural effusion . No overt pulmonary edema. Linear pleural-based consolidative opacities of the right greater than le ft lower lobes has progressively worsened from comparison study. This has waxed and waned over multip le comparison exams. There is multifocal mucus plugging of the left lung base and left upper lobe. La yering groundglass densities in left upper lobe suggest atelectasis. There is improvement of the prev iously described bilateral tree-in-bud nodules. 6 mm wide-shaped pulmonary nodules in the right lower lobe on image 101 series 4 suggests mucous plugging. Previously noted 5 mm solid nodule of the right middle lobe lateral segment is unchanged in size. This is stable dating back to 2017 and likely ginny gn. Patchy bronchovascular distribution of groundglass densities are seen throughout the right lower lobe with mild associated tree-in-bud nodules. Patulous gaseous distention of the upper and mid esophagus. Trace pneumoperitoneum of the upper abdom en is noted beneath the right hemidiaphragm with equivocal pneumoperitoneum adjacent to the proximal gastric lumen. Breast parenchyma and soft tissues are unremarkable. Pectus excavatum deformity of the chest. Bones appear intact. IMPRESSION: 1. Trace pneumomediastinum. Findings may be postsurgical or secondary to perforated viscus. 2. Multifocal mucus plugging, most pronounced in the left lower lobe is noted in conjunction with bib asilar linear consolidation suggestive of atelectasis/scarring. Additionally, there are a few patchy groundglass and tree-in-bud nodules throughout the right lower lobe suggestive of concomitant infecti ous or inflammatory pneumonitis/bronchiolitis. 3. Patulous gaseous distention of the esophagus redemonstrated. 4. Pectus excavatum. 5. No pleural effusion or adenopathy. ACT 112: Negative or not required by law. The above report was generated using voice recognition software. It may contain grammatical, syntax o r spelling errors. Electronically signed by: Jimmy Warner M.D. 04/28/2019 3:11 PM
--- NOTE | 2019-04-28 17:04 | Progress Note ---
Date of Service April 28, 2019 Subjective Patient was seen and examined today post PEG-J placement, feels good, no abdominal pain. Vitals with no fever. Labs reviewed Abdomen soft on exam, tube bumper remains at 2 cm, no leakage. CT scan chest with expected post procedural trace pneumoperitonium. Recommend: Advance feeding as tolerated. Recall GI if needed. Results & Data Vital Signs (Past 12 Hours) Vital Signs Temp Pulse Resp BP Pulse Ox 04/28/19 16:45 92 04/28/19 15:20 36.6 C 81 16 112/68 92 04/28/19 13:21 92 04/28/19 12:41 77 24 104/67 88 L 04/28/19 12:35 36.8 C 73 20 102/62 88 L 04/28/19 11:13 36.6 C 61 14 84/52 L 93 04/28/19 07:15 36.7 C 70 14 93/56 L 92 04/28/19 06:00 94
[2019-04-28] MEDS: ACETYLCYSTEINE 10% INHAL SOLN 4 ML **DISPENSED BY RESP. INH SCH (19:12)
[2019-04-28] MEDS: ALBUT/IPRATROP 3MG/0.5MG NEB 3 ML VIAL NEB PRN (19:12)
[2019-04-28] MEDS: [UNRECOGNIZED DRUG - REMARK] SCH (19:29)
[2019-04-28] MEDS: ACETAMINOPHEN 65 ML IV PRN (19:49)
[2019-04-28] MEDS: NICOTINE 21 MG/24 HR TDSY TD SCH (20:37)
[2019-04-29] MEDS: TUBE FEEDING WATER FLUSH NG SCH ×4 (02:37→19:20)
[2019-04-29 05:54] LABS: Hematocrit (blood only) 34.3 % (37-47); Hemoglobin 10.8 g/dL (12.0-16.0); Mean Corpuscular Hemoglobin 27.4 pg (25-34); Mean Corpuscular Hgb Conc 31.5 g/dL (32-36); Mean Corpuscular Volume 87.1 fL (80-100); Mean Platelet Volume 9.4 fL (7.4-10.4); Platelet Count 263 K/uL (130-400); RDW Coefficient of Variation 15.1 % (11.5-14.5); Red Blood Count 3.94 M/uL (4.2-5.4); White Blood Count 10.21 K/uL (4.8-10.8)
[2019-04-29 06:23] LABS: BUN Creatinine Ratio 9.4 (10-20); Blood Urea Nitrogen 3 mg/dl (7-18); Calcium 9.7 mg/dl (8.5-10.1); Carbon Dioxide 30 mmol/L (21-32); Chloride 108 mmol/L (98-107); Creatinine Clr Calc Pharmacy 132.4 ml/min; Est GFR (African American) > 150.0; Est GFR (Non-African American) 134.6; Glucose 103 mg/dl (70-99); Sodium 141 mmol/L (136-145)
[2019-04-29] MEDS: D5W AND 1/2NSS + 20MEQ KCL 20 MEQ/1,000 ML BAG IV SCH ×2 (06:27→20:26)
[2019-04-29] MEDS: PEPTAMEN 1.5 CAL 1,000 ML BAG JT SCH ×2 (06:38→12:07)
--- NOTE | 2019-04-29 06:53 | Hospitalist Progress Note ---
Date of Service April 29, 2019 Assessment & Plan (1) Hypoxia: 43 yo F admitted for trouble swallowing and shortness of breath found to have esophageal dysmotility and aspiration pneumonia. PEG-J placed 04/27/18, this afternoon with shortness of breath and hypoxia. Failure to thrive, severe protein calorie malnutrition, NG tube failure in the setting of esophageal dysmotility: - CT scan, swallow study, and EGD demonstrated high propensity for aspiration given lack of esophageal motion. - Dr. Hurtado with [facility] placed PEG-J tube 04/27/18. Pt now tolerating tube feeds at 50mL/hr with increases by 10mL every 4 hours as tolerated to a goal of 80mL/hr for 12 hours a day. Will require Case Management assistance with regard to acquiring the supplies and education for the pt regarding how to use tube feeds. - Patient will need esophageal manometry outpatient for the confirmation of the lack of motility of the esophagus. - Will also require close follow up with Dr. Fang as she does not have a PCP and would like to follow with Dr. Fang moving forward. Hypoxia: - Yesterday pt had an episode of hypoxia requiring 4LNC to maintain 90% SpO2. CXR negative for new pneumonia, CTPE negative PE but showed mucous plugging and worsening atelectasis. - Lung exam was significant for shallow air movement with some upper airway sounds. CXR performed; showed atelectasis but no foreign body or consolidation. - After severely productive coughing spells pt's O2 saturation increased to 92% on RA. Following this coughing episode pt appeared brighter, more alert, and more well than she has been since she came into my care on Thursday. - Educated patient extensively on the importance of deep breathing to help clear her atelectasis, as well as the importance of using her incentive spirometer. Pt verbalized understanding. - Mucomyst BID with nebs, chest percussion, and flutter valve. - Wean pt off of O2 as tolerated; pt not on O2 at home. Aspiration pneumonia in a patient with COPD: - resolved. - This all seems likely 2/2 the esophageal dysmotility, and subsequent aspiration of oropharyngeal contents. - Continued Albuterol PRN; continued Advair diskus and Spiriva for COPD, as these are closest to what she will be covered for insurance-duarte after discharge (Breo Ellipta 100-25 1 puff daily, and Incruse Ellipta 62.5 1 puff daily). Educated pt on importance of quitting smoking marijuana to prevent further damage to her lungs. - Azithromycin completed 04/26/19. Pt without pulmonary symptoms and continues to be afebrile. Diet: NPO; tolerating feeds at 50mL/hr currently with intent to increase slowly by 10mL intervals every 4 hours Code: Full DVT PPx: SCDs Dispo: Med/Surg (2) Severe protein-calorie malnutrition: (3) Hypokalemia: (4) Aspiration pneumonia: (5) Dilation of esophagus: (6) Dysphagia: (7) Anxiety: (8) Depression: (9) Poor dentition: Supervising Physician Co-Signing Physician Notes Attending attestation Pt seen and examined in concert with Dr. Conner. In agreement with the documented findings as noted in the resident documentation with any exceptions or additions as noted here. Somnolent but arousable to voice and conversant. No present complaint aside from irritation at PEJ site. Tolerating respiration well on 2LNC On examination, poor dentition, S1/S2 nl RRR no MCG. mild decreased basilar sounds, but otherwise CTAB. Abd NT/ND BS+ve Bilateral LL PNA with aspiration - completed course of abx without recurrence Esophageal dysmotility with reflux and PEJ placement - nutrition and GI consultation - escalating TF to goal with caution. Check Ach Ab testing for MG (flu shot prior to onset) Malnutrition - monitor CMP Else see resident documentation as noted. Subjective Pt without acute events overnight. Yesterday tolerated tube feeds and today up to 50mL/hr without nausea, vomiting, increased abdominal pain. No shortness of breath, chest pain, palpitations. Reports feeling very weak, however is more talkative today than has been previously. Has been able to get up to use the bathroom; has not had a BM since post-op Thursday, minimal passing of gas. Review of Systems Constitutional: no fever, no chills and no malaise Respiratory: no cough and no dyspnea Cardiovascular: no chest pain, no palpitations and no edema Gastrointestinal: + constipation; no abdominal pain and no diarrhea/loose stools Genitourinary: no dysuria and no hematuria Musculoskeletal: + muscle weakness Physical Exam Constitutional: WD/WN, vitals as above Respiratory: normal respiratory effort, lungs clear to auscultation Cardiovascular: RRR, no murmur, no edema Gastrointestinal (Abdomen): normal bowel sounds, soft, nontender, no hepatosplenomegaly Skin: no rashes, warm and dry Psychiatric: A+Ox3, euthymic affect Results & Data Vital Signs (Past 12 Hours) Vital Signs Temp Pulse Pulse Resp BP Pulse Ox 04/28/19 23:20 36.8 C 87 18 104/66 96 04/28/19 19:15 94 H 14 96 Laboratory Results Laboratory Results - last 24 hr 04/28/19 04/28/19 04/29/19 18:00 23:40 05:38 WBC 10.21 RBC 3.94 L Hgb 10.8 L Hct 34.3 L MCV 87.1 MCH 27.4 MCHC 31.5 L RDW Std Deviation 48.0 H RDW Coeff of Abhishek 15.1 H Plt Count 263 MPV 9.4 Sodium Potassium Chloride Carbon Dioxide Anion Gap BUN Creatinine Est Cr Clr Drug Dosing Est GFR ( Amer) Est GFR (Non-Af Amer) BUN/Creatinine Ratio Glucose POC Glucose 119 H 120 H Calcium 04/29/19 04/29/19 05:38 05:51 WBC RBC Hgb Hct MCV MCH MCHC RDW Std Deviation RDW Coeff of Abhishek Plt Count MPV Sodium 141 Potassium 4.0 Chloride 108 H Carbon Dioxide 30 Anion Gap 3.0 BUN 3 L Creatinine 0.34 L Est Cr Clr Drug Dosing 132.4 Est GFR ( Amer) > 150.0 Est GFR (Non-Af Amer) 134.6 BUN/Creatinine Ratio 9.4 L Glucose 103 H POC Glucose 114 H Calcium 9.7 Medications Administered Current Medications Acetylcysteine (Mucomyst 10%) 3 ml INH BIDR SARITA Stop: 05/28/19 18:59 Last Admin: 04/29/19 07:21 Dose: 3 ml Documented by: Al Hydrox/Mg Hydrox/Simethicone (Maalox) 15 ml PO Q4H PRN PRN Reason: Dyspepsia Stop: 05/17/19 19:53 Albuterol (Ventolin Hfa) 2 puffs INH QID PRN PRN Reason: Shortness Of Breath Stop: 05/17/19 19:53 Albuterol (Duoneb) 3 ml NEB Q4R PRN PRN Reason: Shortness Of Breath Stop: 05/17/19 22:59 Last Admin: 04/29/19 07:54 Dose: 3 ml Documented by: Enoxaparin Sodium (Lovenox) 40 mg SQ QAM [facility] Stop: 05/18/19 08:59 Last Admin: 04/29/19 08:47 Dose: 40 mg Documented by: Enteral Nutritional Formula (Peptamen 1.5 Murray) 1,000 ml JT DAILY@0700 [facility]; Protocol Stop: 05/29/19 06:59 Last Admin: 04/29/19 12:07 Dose: 1,000 ml Documented by: Famotidine 20 mg/ Syringe 5 mls @ 2.5 mls/min IV BID [facility] Stop: 05/19/19 20:59 Last Admin: 04/29/19 08:46 Dose: 2.5 mls/min Documented by: Dextrose (D10w) 1,000 mls @ 0 mls/hr IV .Q0M [facility] Stop: 05/20/19 15:59 Last Infusion: 04/26/19 03:40 Dose: Infused Documented by: Potassium Chloride/Dextrose/Sod Cl (D5w And 1/2nss + 20meq Kcl) 20 meq in 1,000 mls @ 80 mls/hr IV .[id number] [facility] Stop: 05/27/19 16:59 Last Infusion: 04/29/19 06:27 Dose: 80 mls/hr Documented by: Acetaminophen (Ofirmev) 65 mls @ 200 mls/hr IV Q8H PRN; Protocol PRN Reason: Moderate Pain Stop: 05/01/19 07:19 Last Infusion: 04/29/19 07:40 Dose: Infused Documented by: Ioversol (Optiray 320 125ml) 120 ml IV ONCE PRN PRN Reason: Interaction Checking Stop: 05/02/19 14:38 Last Admin: 04/28/19 14:40 Dose: 120 ml Documented by: Magnesium Hydroxide (Milk Of Magnesia) 30 ml PO Q12H PRN PRN Reason: Constipation Stop: 05/17/19 19:53 Miscellaneous (Remove Nicoderm Patch) 1 ea N/A DAILY@2058 [facility] Stop: 05/18/19 20:58 Last Admin: 04/28/19 20:23 Dose: 1 ea Documented by: Miscellaneous (Stop Order) 1 ea N/A DAILY@1900 [facility] Stop: 05/28/19 18:59 Last Admin: 04/28/19 19:29 Dose: 1 ea Documented by: Morphine Sulfate (Morphine Sulfate) 2 mg IV Q4H PRN PRN Reason: moderate to severe pain Stop: 05/12/19 07:20 Last Admin: 04/28/19 16:52 Dose: 2 mg Documented by: Nicotine (Nicoderm Cq) 21 mg TD HS [facility] Stop: 05/17/19 20:59 Last Admin: 04/28/19 20:37 Dose: 21 mg Documented by: Polyethylene Glycol (Miralax Powder Packet) 17 gm PO DAILY PRN PRN Reason: Constipation Stop: 05/17/19 19:53 Fluticasone/Salmeterol (Advair Diskus 100/50) 1 puffs INH BID [facility] Stop: 05/18/19 20:59 Last Admin: 04/29/19 08:46 Dose: 1 puffs Documented by: Sterile Water (Tube Feeding Water Flush) 1 ea NG Q6H [facility] Stop: 05/27/19 20:29 Last Admin: 04/29/19 13:57 Dose: 1 ea Documented by: Tiotropium Mather (Spiriva) 1 puffs INH QAM [facility] Stop: 05/18/19 10:59 Last Admin: 04/29/19 08:47 Dose: 1 puffs Documented by: Resident Activity Tracking Resident Involvement: Resident Care Provided Care Provided: Adult [facility] Medicine
[2019-04-29] MEDS: ACETAMINOPHEN 65 ML IV PRN ×2 (07:05→17:27)
[2019-04-29] MEDS: ACETYLCYSTEINE 10% INHAL SOLN 4 ML **DISPENSED BY RESP. INH SCH ×2 (07:21→19:29)
[2019-04-29] MEDS: ALBUT/IPRATROP 3MG/0.5MG NEB 3 ML VIAL NEB PRN ×2 (07:54→19:28)
[2019-04-29] MEDS: FLUTICASONE/SALMETEROL 100/50 (ADVAIR) 14 PUFF/1 INHALER INH SCH ×2 (08:46→20:28)
[2019-04-29] MEDS: FAMOTIDINE 20 MG in SYRINGE 3 ML IV SCH ×2 (08:46→20:33)
[2019-04-29] MEDS: ENOXAPARIN INJ 40 MG/0.4 ML SYR SQ SCH (08:47)
[2019-04-29] MEDS: TIOTROPIUM BROMIDE 5 PUFF/90 MCG INH INH SCH (08:47)
[2019-04-29] MEDS: [UNRECOGNIZED DRUG - REMARK] SCH (19:20)
[2019-04-29] MEDS: NICOTINE 21 MG/24 HR TDSY TD SCH (20:31)
[2019-04-30] MEDS: TUBE FEEDING WATER FLUSH NG SCH ×4 (02:18→21:23)
[2019-04-30] MEDS: PEPTAMEN 1.5 CAL 1,000 ML BAG JT SCH (06:41)
[2019-04-30 06:52] LABS: Hematocrit (blood only) 32.9 % (37-47); Hemoglobin 10.2 g/dL (12.0-16.0); Mean Corpuscular Hemoglobin 27.3 pg (25-34); Mean Corpuscular Volume 88.2 fL (80-100); Mean Platelet Volume 9.4 fL (7.4-10.4); Platelet Count 251 K/uL (130-400); RDW Coefficient of Variation 15.2 % (11.5-14.5); RDW Standard Deviation 49.3 fL (36.4-46.3); Red Blood Count 3.73 M/uL (4.2-5.4); White Blood Count 19.56 K/uL (4.8-10.8)
--- NOTE | 2019-04-30 07:15 | Hospitalist Progress Note ---
Date of Service April 30, 2019 Assessment & Plan (1) Hypoxia: 43 yo F admitted for trouble swallowing and shortness of breath found to have esophageal dysmotility and aspiration pneumonia, s/p PEG-J placement Failure to thrive, severe protein calorie malnutrition, NG tube failure in the setting of esophageal dysmotility: - CT scan, swallow study, and EGD demonstrated high propensity for aspiration given lack of esophageal motion. - Dr. Hurtado with [facility] placed PEG-J tube 04/27/18. Pt now tolerating tube feeds at 50mL/hr with increases by 10mL every 4 hours as tolerated to a goal of 80mL/hr for 12 hours a day. - Case Management arranging services for home feeds - Patient will need esophageal manometry outpatient for the confirmation of the lack of motility of the esophagus -Ach ab pending - check CMP daily Hypoxia: -satting at 96% on room air - Educated patient extensively on the importance of deep breathing to help clear her atelectasis, as well as the importance of using her incentive spirometer. Pt verbalized understanding. - Mucomyst BID with nebs, chest percussion, and flutter valve. Aspiration pneumonia in a patient with COPD: - This all seems likely 2/2 the esophageal dysmotility and subsequent aspiration of oropharyngeal contents. Azithromycin course completed 04/26/19. Patient did spike a white count today to 19.5; on repeat WBC at 18. Patient reports feeling well, is afebrile, not tachycardic, and is satting well on room air. CXR ordered to asses for recurrent aspiration PNA (reflux of tube feeds). - Continued Albuterol PRN; continued Advair diskus and Spiriva for COPD, as these are closest to what she will be covered for insurance-[employer]arte after discharge (Breo Ellipta 100-25 1 puff daily, and Incruse Ellipta 62.5 1 puff daily). Educated pt on importance of quitting smoking marijuana to prevent further damage to her lungs. Diet: NPO; tolerating feeds at 50mL/hr currently with intent to increase slowly by 10mL intervals every 4 hours Code: Full DVT PPx: SCDs Dispo: Med/Surg (2) Severe protein-calorie malnutrition: (3) Hypokalemia: (4) Aspiration pneumonia: (5) Dilation of esophagus: (6) Dysphagia: (7) Anxiety: (8) Depression: (9) Poor dentition: (10) Cocaine abuse: Supervising Physician Co-Signing Physician Notes Attending attestation Pt seen and examined in concert with Dr. Bennett. In agreement with the documented findings as noted in the resident documentation with any exceptions or additions as noted here. Much more interactive and conversant today. Feeling well - no apparent symptoms aside from mild headache to coincide with brief tachycardia and new elevated WBC. Still painful @ PEJ site. No new cough/SOB History of significant cocaine use - "I used to do 1 8-ball per weekend" (halfway 3.5gm per weekend intranasally and applied to teeth). Rare crack cocaine and amphetamine abuse. - these behaviors likely contribute to poor dentition as cocaine has deleterious effects on dentition. On examination, poor dentition, S1/S2 nl RRR no MCG. CTAB. Abd NT/ND BS+ve Bilateral LL PNA with aspiration - completed course of abx without recurrence, but would repeat XR in the setting of tachycardia and elevated WBC Esophageal dysmotility with reflux and PEJ placement - nutrition and GI consultation - continue TF to goal with caution. Follow up Ach Ab testing for MG (flu shot prior to onset) Malnutrition - monitor CMP Else see resident documentation as noted. Subjective No acute events overnight. Patient reports she feels well, aside from some irritation near the insertion site of Peg-J. Review of Systems Review of Systems: All systems reviewed & are unremarkable except as noted in HPI & below Physical Exam Constitutional: well developed and + cachectic Drowsy but arousable to voice Eyes: PERRL, conjunctivae normal, anicteric sclerae ENMT: external ear and nose normal, oropharynx normal Poor dentition Neck: trachea midline, no thyromegaly Respiratory: normal respiratory effort, lungs clear to auscultation Cardiovascular: RRR, no murmur, no edema Heart Sounds: normal S1 and normal S2 Gastrointestinal (Abdomen): normal bowel sounds, soft, nontender, no hepatosplenomegaly PEG-J tube in place; without surrounding erythma or warmth Skin: no rashes, warm and dry Results & Data Vital Signs (Past 12 Hours) Vital Signs Temp Pulse Pulse Resp BP Pulse Ox 04/29/19 23:20 37.1 C 105 H 18 107/68 90 04/29/19 19:31 115 H 21 97 Resident Activity Tracking Resident Involvement: Resident Care Provided Care Provided: Adult Hospital Medicine
[2019-04-30 07:21] LABS: BUN Creatinine Ratio 13.2 (10-20); Blood Urea Nitrogen 4 mg/dl (7-18); Calcium 9.2 mg/dl (8.5-10.1); Carbon Dioxide 28 mmol/L (21-32); Chloride 107 mmol/L (98-107); Creatinine Clr Calc Pharmacy 153.2 ml/min; Est GFR (African American) > 150.0; Est GFR (Non-African American) 141.8; Glucose 100 mg/dl (70-99); Sodium 137 mmol/L (136-145)
[2019-04-30] MEDS: ALBUT/IPRATROP 3MG/0.5MG NEB 3 ML VIAL NEB PRN ×2 (07:31→21:59)
[2019-04-30] MEDS: ACETYLCYSTEINE 10% INHAL SOLN 4 ML **DISPENSED BY RESP. INH SCH ×2 (07:31→19:56)
[2019-04-30] MEDS: D5W AND 1/2NSS + 20MEQ KCL 20 MEQ/1,000 ML BAG IV SCH ×2 (07:51→20:54)
[2019-04-30] MEDS: FAMOTIDINE 20 MG in SYRINGE 3 ML IV SCH ×2 (09:31→21:23)
[2019-04-30] MEDS: FLUTICASONE/SALMETEROL 100/50 (ADVAIR) 14 PUFF/1 INHALER INH SCH ×2 (09:32→20:59)
[2019-04-30] MEDS: TIOTROPIUM BROMIDE 5 PUFF/90 MCG INH INH SCH (09:32)
[2019-04-30] MEDS: ENOXAPARIN INJ 40 MG/0.4 ML SYR SQ SCH (09:32)
[2019-04-30 13:57] LABS: Basophils # (auto) 0.02 K/uL (0-0.2); Basophils % (auto) 0.1 %; Eosinophils # (auto) 0.28 K/uL (0-0.5); Eosinophils % (auto) 1.5 %; Hemoglobin 9.8 g/dL (12.0-16.0); Immature Granulocytes # (auto) 0.05 K/uL (0.00-0.02); Immature Granulocytes % (auto) 0.3 %; Lymphocytes % (auto) 7.9 %; Mean Corpuscular Hemoglobin 27.3 pg (25-34); Mean Corpuscular Hgb Conc 31.6 g/dL (32-36); Mean Corpuscular Volume 86.4 fL (80-100); Mean Platelet Volume 9.7 fL (7.4-10.4); Monocytes # (auto) 1.16 K/uL (0.11-0.59); Monocytes % (auto) 6.1 %; Neutrophils # (auto) 15.94 K/uL (1.4-6.5); Neutrophils % (auto) 84.1 %; Platelet Count 248 K/uL (130-400); RDW Coefficient of Variation 15.3 % (11.5-14.5); RDW Standard Deviation 49.1 fL (36.4-46.3); Red Blood Count 3.59 M/uL (4.2-5.4); White Blood Count 18.95 K/uL (4.8-10.8)
--- NOTE | 2019-04-30 17:37 | XRay Report ---
XR chest 2V PA/lateral HISTORY: new WBC, h/o aspiration, brief tachycardia COMPARISON: Chest 04/28/2019. FINDINGS: Progressive opacification within the right and left medial lung bases. This likely represen ts a pneumonia and may be secondary to aspiration. No pneumothorax. No pleural effusions. The heart i s normal in size. The upper lung zones are clear. Mild emphysema. IMPRESSION: There are new bibasilar airspace opacities. This likely represents a pneumonia could be secondary to aspiration. Recommend follow-up to ensure resolution. ACT 112: Negative or not required by law. Electronically signed by: Aden Connolly M.D. 04/30/2019 5:36 PM
[2019-04-30] MEDS ORDERED: PIPERACILL/TAZOBAC CONSULT ACTIVE PRN (17:50)
[2019-04-30] MEDS ORDERED: PIPERACILLIN/TAZOBACTAM 3.375 GM in DEXTROSE 5% 100 ML IV ONE (19:00)
[2019-04-30] MEDS: [UNRECOGNIZED DRUG - REMARK] SCH (19:19)
[2019-04-30] MEDS: ACETAMINOPHEN 65 ML IV PRN (21:51)
[2019-04-30] MEDS: NICOTINE 21 MG/24 HR TDSY TD SCH (21:53)
[2019-04-30] MEDS: PIPERACILLIN/TAZOBACTAM 3.375 GM in DEXTROSE 5% 100 ML IV SCH (23:10)
[2019-05-01] MEDS: TUBE FEEDING WATER FLUSH NG SCH ×4 (01:46→19:27)
[2019-05-01] MEDS: ACETYLCYSTEINE 10% INHAL SOLN 4 ML **DISPENSED BY RESP. INH SCH ×2 (07:05→18:57)
[2019-05-01] MEDS: ALBUT/IPRATROP 3MG/0.5MG NEB 3 ML VIAL NEB PRN ×2 (07:05→18:57)
[2019-05-01] MEDS: PEPTAMEN 1.5 CAL 1,000 ML BAG JT SCH (07:07)
--- NOTE | 2019-05-01 07:54 | Hospitalist Progress Note ---
Date of Service May 01, 2019 Assessment & Plan (1) Hypoxia: 43 yo F admitted for trouble swallowing and shortness of breath found to have esophageal dysmotility and recurrent aspiration pneumonia, s/p PEG-J placement Failure to thrive, severe protein calorie malnutrition, NG tube failure in the setting of esophageal dysmotility: - CT scan, swallow study, and EGD demonstrated high propensity for aspiration given lack of esophageal motility - Dr. Hurtado with [facility] placed PEG-J tube 04/27/18. Pt now tolerating tube feeds at goal rate of 80mL/hr for 12 hrs/day - Case Management arranging services for home feeds - Patient will need esophageal manometry outpatient for the confirmation of the lack of motility of the esophagus - Scleroderma workup neg; Ach ab pending - Electrolytes stable on 05/01. check CMP daily Aspiration pneumonia in a patient with COPD: - This all seems likely 2/2 the esophageal dysmotility and subsequent aspiration of oropharyngeal contents. Azithromycin course completed 04/26/19. -Patient spiked a white count on 04/30/19 to 19.5; CXR showing evidence of recurrent aspiration PNA (likely reflux of gastric acid or oral secretions in response to tube feeds). Started IV zosyn on 04/30/19. WBC down to 11 on 05/01. Plan to step down to unasyn on 05/02. - continue IV pepcid to minimize gastric acid production - spoke with Dr. Damon from pulmonology on 05/01 about possibility of aspiration of tooth given widespread necrosis in oral cavity - per Dr. Damon this is unlikely and would not order bronchoscopy at this time - Continued Albuterol PRN; continued Advair diskus and Spiriva for COPD, as these are closest to what she will be covered for insurance-[employer]arte after discharge (Breo Ellipta 100-25 1 puff daily, and Incruse Ellipta 62.5 1 puff daily). Educated pt on importance of quitting smoking marijuana to prevent further damage to her lungs. Hypoxia: - satting at 94% on room air - Educated patient extensively on the importance of deep breathing to help clear her atelectasis, as well as the importance of using her incentive spirometer. Pt verbalized understanding. - Mucomyst BID with nebs, chest percussion, and flutter valve. Cocaine abuse -likely cause of poor dentition - patient reports history of chronic use at a dose of 3.5gm per weekend intranasally and applied to teeth - encouraged continued abstinence Tobacco abuse -nicoderm patch Diet: NPO; tolerating feeds at goal rate of 80mls/ hr for 12 hrs/day Code: Full DVT PPx: Lovenox 40mg, subQ, daily; bilateral SCDs Dispo: Med/Surg (2) Severe protein-calorie malnutrition: (3) Hypokalemia: (4) Aspiration pneumonia: (5) Dilation of esophagus: (6) Dysphagia: (7) Anxiety: (8) Depression: (9) Poor dentition: (10) Cocaine abuse: (11) Tobacco abuse: Supervising Physician Co-Signing Physician Notes Attending attestation Pt seen and examined in concert with Dr. Bennett. In agreement with the documented findings as noted in the resident documentation with any exceptions or additions as noted here. Arousable to voice. No acute complaints aside from fatigue. Mild irritation at PEJ. History of significant cocaine use - "I used to do 1 8-ball per weekend" (shelter 3.5gm per weekend intranasally and applied to teeth). Rare crack cocaine and amphetamine abuse. - these behaviors likely contribute to poor dentition as cocaine has deleterious effects on dentition. On examination, poor dentition, S1/S2 nl RRR no MCG. CTAB. Abd NT/ND BS+ve Bilateral LL PNA with aspiration - recurrence noted on CXR, which would be c/w WBC elevation - Zosyn currently, could likely step down to augmentin tomorrow Esophageal dysmotility with reflux and PEJ placement - nutrition and GI consultation - continue TF at goal. Follow up Ach Ab testing for MG (flu shot prior to onset) Malnutrition - monitor CMP, nutrition consultation appreciated Else see resident documentation as noted. Subjective No acute events overnight. Patient not very conversant/interactive today. When asked if she were in any discomfort she shook her head "no." Review of Systems Review of Systems: All systems reviewed & are unremarkable except as noted in HPI & below Physical Exam Constitutional: well developed and + cachectic; + not well nourished Eyes: PERRL, conjunctivae normal, anicteric sclerae ENMT: external ear and nose normal, oropharynx normal Mouth: + dentition abnormality (very poor; missing many teeth on upper gumline) Neck: normal visual inspection and trachea midline Respiratory: normal respiratory effort, lungs clear to auscultation Cardiovascular: RRR, no murmur, no edema Heart Sounds: normal S1 and normal S2 Extremities: no pedal edema Gastrointestinal (Abdomen): normal bowel sounds, soft, nontender, no hepatosplenomegaly PEG-J in place without surrounding erythema Skin: no rashes, warm and dry Results & Data Vital Signs (Past 12 Hours) Vital Signs Temp Pulse Pulse Resp BP Pulse Ox 05/01/19 07:33 36.7 C 92 H 14 95/56 L 94 05/01/19 07:10 63 18 96 04/30/19 23:15 36.7 C 100 H 16 97/59 L 94 04/30/19 21:59 87 18 94 Resident Activity Tracking Resident Involvement: Resident Care Provided Care Provided: Adult Hospital Medicine
[2019-05-01 08:16] LABS: Basophils # (auto) 0.03 K/uL (0-0.2); Basophils % (auto) 0.3 %; Eosinophils # (auto) 0.32 K/uL (0-0.5); Eosinophils % (auto) 2.9 %; Hematocrit (blood only) 29.8 % (37-47); Hemoglobin 9.3 g/dL (12.0-16.0); Immature Granulocytes # (auto) 0.04 K/uL (0.00-0.02); Immature Granulocytes % (auto) 0.4 %; Lymphocytes # (auto) 1.66 K/uL (1.2-3.4); Lymphocytes % (auto) 14.8 %; Mean Corpuscular Hemoglobin 27.4 pg (25-34); Mean Corpuscular Hgb Conc 31.2 g/dL (32-36); Mean Corpuscular Volume 87.9 fL (80-100); Mean Platelet Volume 9.1 fL (7.4-10.4); Monocytes # (auto) 0.45 K/uL (0.11-0.59); Neutrophils # (auto) 8.72 K/uL (1.4-6.5); Neutrophils % (auto) 77.6 %; Platelet Count 219 K/uL (130-400); RDW Coefficient of Variation 15.7 % (11.5-14.5); RDW Standard Deviation 50.7 fL (36.4-46.3); Red Blood Count 3.39 M/uL (4.2-5.4); White Blood Count 11.22 K/uL (4.8-10.8)
[2019-05-01 08:36] LABS: Albumin Level 2.3 gm/dl (3.4-5.0); BUN Creatinine Ratio 11.4 (10-20); Calcium 9.2 mg/dl (8.5-10.1); Creatinine Clr Calc Pharmacy 111.1 ml/min; Est GFR (African American) 147.9; Est GFR (Non-African American) 127.6; Potassium 3.1 mmol/L (3.5-5.1)
[2019-05-01 08:39] LABS: Albumin Globulin Ratio 0.6 (0.9-2); Bilirubin,Total 0.5 mg/dl (0.2-1); Globulin 3.8 gm/dl (2.5-4.0); Total Protein 6.1 gm/dl (6.4-8.2)
[2019-05-01] MEDS: ENOXAPARIN INJ 40 MG/0.4 ML SYR SQ SCH (09:09)
[2019-05-01] MEDS: TIOTROPIUM BROMIDE 5 PUFF/90 MCG INH INH SCH (09:09)
[2019-05-01] MEDS: FLUTICASONE/SALMETEROL 100/50 (ADVAIR) 14 PUFF/1 INHALER INH SCH ×2 (09:09→20:12)
[2019-05-01] MEDS: PIPERACILLIN/TAZOBACTAM 3.375 GM in DEXTROSE 5% 100 ML IV SCH ×2 (09:11→16:21)
[2019-05-01] MEDS: FAMOTIDINE 20 MG in SYRINGE 3 ML IV SCH ×2 (09:11→20:12)
[2019-05-01] MEDS: D5W AND 1/2NSS + 20MEQ KCL 20 MEQ/1,000 ML BAG IV SCH ×2 (09:15→20:59)
[2019-05-01] MEDS: [UNRECOGNIZED DRUG - REMARK] SCH (19:27)
[2019-05-01] MEDS: NICOTINE 21 MG/24 HR TDSY TD SCH (20:12)
[2019-05-02] MEDS: PIPERACILLIN/TAZOBACTAM 3.375 GM in DEXTROSE 5% 100 ML IV SCH ×2 (00:01→07:56)
[2019-05-02] MEDS: TUBE FEEDING WATER FLUSH NG SCH ×4 (01:55→19:19)
[2019-05-02] MEDS: PEPTAMEN 1.5 CAL 1,000 ML BAG JT SCH (06:15)
[2019-05-02 06:37] LABS: Basophils # (auto) 0.04 K/uL (0-0.2); Basophils % (auto) 0.5 %; Eosinophils # (auto) 0.36 K/uL (0-0.5); Eosinophils % (auto) 4.7 %; Hematocrit (blood only) 30.1 % (37-47); Hemoglobin 9.2 g/dL (12.0-16.0); Immature Granulocytes # (auto) 0.01 K/uL (0.00-0.02); Immature Granulocytes % (auto) 0.1 %; Lymphocytes # (auto) 2.21 K/uL (1.2-3.4); Mean Corpuscular Hemoglobin 27.4 pg (25-34); Mean Corpuscular Hgb Conc 30.6 g/dL (32-36); Mean Corpuscular Volume 89.6 fL (80-100); Mean Platelet Volume 9.9 fL (7.4-10.4); Monocytes # (auto) 0.58 K/uL (0.11-0.59); Monocytes % (auto) 7.6 %; Neutrophils # (auto) 4.41 K/uL (1.4-6.5); Neutrophils % (auto) 58.1 %; Platelet Count 254 K/uL (130-400); RDW Coefficient of Variation 15.9 % (11.5-14.5); RDW Standard Deviation 51.8 fL (36.4-46.3); Red Blood Count 3.36 M/uL (4.2-5.4); White Blood Count 7.61 K/uL (4.8-10.8)
[2019-05-02 07:14] LABS: Creatinine Clr Calc Pharmacy 138.8 ml/min; Est GFR (African American) > 150.0; Est GFR (Non-African American) 137.3
[2019-05-02] MEDS: ACETYLCYSTEINE 10% INHAL SOLN 4 ML **DISPENSED BY RESP. INH SCH (07:27)
[2019-05-02] MEDS: ALBUT/IPRATROP 3MG/0.5MG NEB 3 ML VIAL NEB PRN (07:27)
[2019-05-02] MEDS: FAMOTIDINE 20 MG in SYRINGE 3 ML IV SCH ×2 (07:56→20:58)
[2019-05-02] MEDS: FLUTICASONE/SALMETEROL 100/50 (ADVAIR) 14 PUFF/1 INHALER INH SCH ×2 (08:00→20:51)
[2019-05-02] MEDS: ENOXAPARIN INJ 40 MG/0.4 ML SYR SQ SCH (08:01)
[2019-05-02] MEDS: TIOTROPIUM BROMIDE 5 PUFF/90 MCG INH INH SCH (08:01)
[2019-05-02] MEDS: D5W AND 1/2NSS + 20MEQ KCL 20 MEQ/1,000 ML BAG IV SCH ×2 (09:16→20:52)
--- NOTE | 2019-05-02 09:46 | Hospitalist Progress Note ---
Date of Service May 02, 2019 Assessment & Plan (1) Hypoxia: 43 yo F admitted for trouble swallowing and shortness of breath found to have esophageal dysmotility and recurrent aspiration pneumonia, s/p PEG-J placement. Failure to thrive, severe protein calorie malnutrition, NG tube failure in the setting of esophageal dysmotility: - CT scan, swallow study, and EGD demonstrated high propensity for aspiration given lack of esophageal motility. - Dr. Hurtado with [facility] placed PEG-J tube 04/27/18. Pt now tolerating tube feeds at goal rate of 80mL/hr for 12 hrs/day. - Per Case Management: [facility] tube feeding will come to see patient tomorrow AM and give teaching and supplies for tube feedings. Then patient for discharge. - Patient will need esophageal manometry outpatient for the confirmation of the lack of motility of the esophagus. - Scleroderma workup neg; Ach ab pending. - Mildly elevated ALT likely due to refeeding. Continues to trend down. Aspiration pneumonia in a patient with COPD: - This all seems likely 2/2 the esophageal dysmotility and subsequent aspiration of oropharyngeal contents. Azithromycin course completed 04/26/19. -Patient spiked a white count on 04/30/19 to 19.5; CXR showing evidence of recurrent aspiration PNA (likely reflux of gastric acid or oral secretions in response to tube feeds). Started IV zosyn on 04/30/19. WBC down to 7.61 today; have switched to Augmentin 880mg via GT BID. - Continue IV pepcid to minimize gastric acid production. - Continue Albuterol PRN; continued Advair diskus and Spiriva for COPD, as these are closest to what she will be covered for insurance-duarte after discharge (Breo Ellipta 100-25 1 puff daily, and Incruse Ellipta 62.5 1 puff daily). Educated pt on importance of quitting smoking marijuana to prevent further damage to her lungs. - Discussed the importance of elevating the head of her bed during feedings (IE: nighttime) to minimize aspiration. Hypoxia: - Saturating to 96% on room air. - Educated patient extensively on the importance of deep breathing to help clear her atelectasis, as well as the importance of using her incentive spirometer. Pt verbalized understanding. - Chest percussion, flutter valve. Cocaine abuse - Likely cause of poor dentition. - Patient reports history of chronic use at a dose of 3.5gm per weekend intranasally and applied to teeth. - Encouraged continued abstinence. Pt has been provided with dental care options for low income families. Tobacco abuse - Nicoderm patch. - Pt would like patches on discharge as they are helping curb her cigarette cravings. Diet: NPO; tolerating feeds at goal rate of 80mls/ hr for 12 hrs/day Code: Full DVT PPx: Lovenox 40mg, subQ, daily; bilateral SCDs Dispo: Med/Surg (2) Severe protein-calorie malnutrition: (3) Hypokalemia: (4) Aspiration pneumonia: (5) Dilation of esophagus: (6) Dysphagia: (7) Anxiety: (8) Depression: (9) Poor dentition: (10) Cocaine abuse: (11) Tobacco abuse: Supervising Physician Co-Signing Physician Notes I personally examined the patient and verified all solomon points of history and exam, discussed case, and agree with decision making with Dr Conner. No new complaints. Initially thought she was going to be able to get home today, but tube feeds will not be delivered till tomorrow. Breathing is okay. Outlined outpatient follow-up and "red flags" to watch for. Vitals noted, in general she is awake and alert pleasant no distress. HEENT normocephalic atraumatic mucous membranes moist. Breathing unlabored no accessory muscle use, skin shows no rashes no pallor or icterus. Ongoing poor dentition. Bilateral LL PNA with aspiration - recurrence noted on CXR, which would be c/w WBC elevation -doing better nowtransition Zosyn to Augmentin. Discussed need for strict n.p.o., discussed need to be more upright during tube feeds running (discussed elevating the head of the bed) Esophageal dysmotility with reflux and PEJ placement - nutrition and GI consultation - continue TF at goal. Follow up Ach Ab testing for MG (flu shot prior to onset), outpt manometry to be set up (GI has already contacted her to do this) Malnutrition - monitor CMP, nutrition consultation appreciated - sl bump in LFTs likely relates to this and getting to goal on tube feeds --> follow periodically - but trending down. otherwise as above Subjective Pt without acute events overnight. Tolerating tube feeds @80mL/hr well without nausea or vomiting. No abdominal pain. No fevers or chills. Review of Systems Constitutional: no fever, no chills and no malaise Respiratory: no cough and no dyspnea Cardiovascular: no chest pain, no palpitations and no edema Gastrointestinal: no abdominal pain, no constipation and no diarrhea/loose stools Genitourinary: no dysuria and no hematuria Physical Exam Constitutional: + cachectic; + not well nourished ENMT: external ear and nose normal, oropharynx normal Mouth: + dentition abnormality (very poor with multiple missing and broken teeth) Respiratory: normal respiratory effort, lungs clear to auscultation Cardiovascular: RRR, no murmur, no edema Extremities: no pedal edema Gastrointestinal (Abdomen): normal bowel sounds, soft, nontender, no hepatosplenomegaly PEG-J in place without surrounding erythema, no drainage Skin: no rashes, warm and dry Psychiatric: A+Ox3, euthymic affect Results & Data Vital Signs (Past 12 Hours) Vital Signs Temp Pulse Resp BP Pulse Ox 05/02/19 07:30 86 16 95 05/02/19 07:03 36.6 C 75 15 96/59 L 94 05/01/19 23:10 36.6 C 98 H 16 112/71 96 Laboratory Results Laboratory Results - last 24 hr 05/01/19 05/01/19 05/02/19 18:14 23:55 05:54 WBC 7.61 RBC 3.36 L Hgb 9.2 L Hct 30.1 L MCV 89.6 MCH 27.4 MCHC 30.6 L RDW Std Deviation 51.8 H RDW Coeff of Abhishek 15.9 H Plt Count 254 MPV 9.9 Immature Gran % (Auto) 0.1 Neut % (Auto) 58.1 Lymph % (Auto) 29.0 Pepin % (Auto) 7.6 Eos % (Auto) 4.7 Baso % (Auto) 0.5 Immature Gran # (Auto) 0.01 Neut # (Auto) 4.41 Lymph # (Auto) 2.21 Pepin # (Auto) 0.58 Eos # (Auto) 0.36 Baso # (Auto) 0.04 Sodium Potassium Chloride Carbon Dioxide Anion Gap BUN Creatinine Est Cr Clr Drug Dosing Est GFR ( Amer) Est GFR (Non-Af Amer) BUN/Creatinine Ratio Glucose POC Glucose 119 H 106 H Calcium Total Bilirubin AST ALT Alkaline Phosphatase Total Protein Albumin Globulin Albumin/Globulin Ratio 05/02/19 05/02/19 05/02/19 05:54 05:54 05:58 WBC RBC Hgb Hct MCV MCH MCHC RDW Std Deviation RDW Coeff of Abhishek Plt Count MPV Immature Gran % (Auto) Neut % (Auto) Lymph % (Auto) Pepin % (Auto) Eos % (Auto) Baso % (Auto) Immature Gran # (Auto) Neut # (Auto) Lymph # (Auto) Pepin # (Auto) Eos # (Auto) Baso # (Auto) Sodium 141 Potassium 3.9 D Chloride 111 H Carbon Dioxide 26 Anion Gap 4.0 BUN 4 L Creatinine 0.32 L 0.35 L Est Cr Clr Drug Dosing 138.8 126.9 Est GFR ( Amer) > 150.0 > 150.0 Est GFR (Non-Af Amer) 137.3 133.3 BUN/Creatinine Ratio 11.5 Glucose 101 H POC Glucose 107 H Calcium 9.3 Total Bilirubin 0.3 AST 22 ALT 89 H Alkaline Phosphatase 230 H Total Protein 5.9 L Albumin 2.3 L Globulin 3.6 Albumin/Globulin Ratio 0.6 L Medications Administered Current Medications Acetaminophen (Tylenol) 650 mg PO Q6H PRN PRN Reason: Headache Stop: 06/01/19 10:10 Last Admin: 05/02/19 10:40 Dose: 650 mg Documented by: Al Hydrox/Mg Hydrox/Simethicone (Maalox) 15 ml PO Q4H PRN PRN Reason: Dyspepsia Stop: 05/17/19 19:53 Albuterol (Ventolin Hfa) 2 puffs INH QID PRN PRN Reason: Shortness Of Breath Stop: 05/17/19 19:53 Albuterol (Duoneb) 3 ml NEB Q4R PRN PRN Reason: Shortness Of Breath Stop: 05/17/19 22:59 Last Admin: 05/02/19 07:27 Dose: 3 ml Documented by: Amoxicillin/Clavulanate Potassium (Augmentin Susp) 880 mg GT BIDM SARITA; Protocol Stop: 05/09/19 16:59 Enoxaparin Sodium (Lovenox) 40 mg SQ QAM SARITA Stop: 05/18/19 08:59 Last Admin: 05/02/19 08:01 Dose: 40 mg Documented by: Enteral Nutritional Formula (Peptamen 1.5 [place]) 1,000 ml JT DAILY@0700 [facility]; Protocol Stop: 05/31/19 06:59 Last Admin: 05/02/19 06:15 Dose: 1,000 ml Documented by: Famotidine 20 mg/ Syringe 5 mls @ 2.5 mls/min IV BID [facility] Stop: 05/19/19 20:59 Last Admin: 05/02/19 07:56 Dose: 2.5 mls/min Documented by: Dextrose (D10w) 1,000 mls @ 0 mls/hr IV .Q0M [facility] Stop: 05/20/19 15:59 Last Infusion: 04/26/19 03:40 Dose: Infused Documented by: Potassium Chloride/Dextrose/Sod Cl (D5w And 1/2nss + 20meq Kcl) 20 meq in 1,000 mls @ 80 mls/hr IV .[id number] [facility] Stop: 05/27/19 16:59 Last Admin: 05/02/19 09:16 Dose: 80 mls/hr Documented by: Magnesium Hydroxide (Milk Of Magnesia) 30 ml PO Q12H PRN PRN Reason: Constipation Stop: 05/17/19 19:53 Miscellaneous (Remove Nicoderm Patch) 1 ea N/A DAILY@2058 [facility] Stop: 05/18/19 20:58 Last Admin: 05/01/19 20:12 Dose: 1 ea Documented by: Miscellaneous (Stop Order) 1 ea N/A DAILY@1900 [facility] Stop: 05/28/19 18:59 Last Admin: 05/01/19 19:27 Dose: 1 ea Documented by: Morphine Sulfate (Morphine Sulfate) 2 mg IV Q4H PRN PRN Reason: moderate to severe pain Stop: 05/12/19 07:20 Last Admin: 04/28/19 16:52 Dose: 2 mg Documented by: Nicotine (Nicoderm Cq) 21 mg TD HS [facility] Stop: 05/17/19 20:59 Last Admin: 05/01/19 20:12 Dose: 21 mg Documented by: Polyethylene Glycol (Miralax Powder Packet) 17 gm PO DAILY PRN PRN Reason: Constipation Stop: 05/17/19 19:53 Fluticasone/Salmeterol (Advair Diskus 100/50) 1 puffs INH BID [facility] Stop: 05/18/19 20:59 Last Admin: 05/02/19 08:00 Dose: 1 puffs Documented by: Sterile Water (Tube Feeding Water Flush) 1 ea NG Q6H [facility] Stop: 05/27/19 20:29 Last Admin: 05/02/19 14:36 Dose: 1 ea Documented by: Tiotropium [place] (Spiriva) 1 puffs INH QAM [facility] Stop: 05/18/19 10:59 Last Admin: 05/02/19 08:01 Dose: 1 puffs Documented by: Resident Activity Tracking Resident Involvement: Resident Care Provided Care Provided: Adult Hospital Medicine
[2019-05-02] MEDS ORDERED: ACETAMINOPHEN SOL 650 MG/20.3 ML UDC PO PRN (10:11)
[2019-05-02 10:19] LABS: Alanine Aminotransferase 89 U/L (12-78); Albumin Globulin Ratio 0.6 (0.9-2); Albumin Level 2.3 gm/dl (3.4-5.0); Alkaline Phosphatase 230 U/L (45-117); Aspartate Aminotransferase 22 U/L (15-37); BUN Creatinine Ratio 11.5 (10-20); Bilirubin,Total 0.3 mg/dl (0.2-1); Blood Urea Nitrogen 4 mg/dl (7-18); Calcium 9.3 mg/dl (8.5-10.1); Carbon Dioxide 26 mmol/L (21-32); Chloride 111 mmol/L (98-107); Creatinine Clr Calc Pharmacy 126.9 ml/min; Est GFR (African American) > 150.0; Est GFR (Non-African American) 133.3; Globulin 3.6 gm/dl (2.5-4.0); Glucose 101 mg/dl (70-99); Potassium 3.9 mmol/L (3.5-5.1); Sodium 141 mmol/L (136-145); Total Protein 5.9 gm/dl (6.4-8.2)
[2019-05-02] MEDS ORDERED: AMOXICILLIN/CLAVULANATE POTAS 600MG/5ML UDP GT SCH ×2 (17:00)
[2019-05-02] MEDS: AMOXICILLIN/CLAVULANATE SUSP 400MG/5ML 50ML BOTTLE GT SCH (17:47)
--- NOTE | 2019-05-02 17:52 | Billing Data ---
Date of Service May 02, 2019 Coding Level of Care Code 47575 Subseq Hosp Care Lvl 2
[2019-05-02] MEDS: [UNRECOGNIZED DRUG - REMARK] SCH (19:19)
[2019-05-02] MEDS: NICOTINE 21 MG/24 HR TDSY TD SCH ×2 (20:55→20:57)
[2019-05-03] MEDS: TUBE FEEDING WATER FLUSH NG SCH ×3 (02:30→14:43)
[2019-05-03] MEDS: PEPTAMEN 1.5 CAL 1,000 ML BAG JT SCH (06:57)
--- NOTE | 2019-05-03 07:28 | Discharge Summary ---
Date of Service May 03, 2019 Admission HPI Per Admitting Provider Patient is a 43 years old female with past medical history of arthritis, constipation, COPD, depression, anxiety who presents to the emergency room for evaluation of respiratory problem and shortness of breath. Patient has history of COPD and states that today her breathing was worsening. Patient is currently smoking approximately 1 pack/day. Patient reports using her inhaler but that did not give her any relief. Patient is denies any abdominal pain. Patient complain of neck pain. Patient denies fever, chills, abdominal pain, frequency, urgency. To be oxygenated above 92% patient needed to be on 4 L of oxygen. Labs are reviewed which shows: WBCs of 13.33, hemoglobin 13, hematocrit 40.9, platelets 370, sodium 137, potassium 3.8, chloride 105, BUN 6, creatinine 0.42, GFR 125.5, calcium 9.6, troponin 0 0.015, BNP 184. Urine is turbid, urine protein trace, ketones 2+, urine blood 2+. Chest x-ray shows: Mild bibasilar opacities, greater on the left, the finding could reflect pneumonia or atelectasis. Patient was made to admit patient to PCU on telemetry for respiratory failure, hypoxia and possible pneumonia. Admission Exam Per Admitting Provider Constitutional: WD/WN, vitals as above well developed and + cachectic Eyes: PERRL, conjunctivae normal, anicteric sclerae ENMT: external ear and nose normal, oropharynx normal Neck: trachea midline, no thyromegaly Respiratory: + respiratory distress, + labored breathing, + uses accessory muscles and + hyperresonance to percussion Auscultation: + crackles, + wheezes, + bronchovesicular breath sounds and + egophony Cardiovascular: RRR, no murmur, no edema Gastrointestinal (Abdomen): normal bowel sounds, soft, nontender, no hepatosplenomegaly Musculoskeletal: no cyanosis or clubbing, extremities motor strength 5/5 Skin: no rashes, warm and dry Neurologic: patellar DTR's 2+ bilat, sensation intact Psychiatric: A+Ox3, euthymic affect Lymphatic: no cervical or axillary lymphadenopathy Principal Diagnosis esophageal dysmotility, severe protein calorie malnutrition, aspiration pneumonia Discharge Exam Constitutional: + cachectic; + not well nourished ENMT: external ear and nose normal, oropharynx normal Mouth: + dentition abnormality (very poor with multiple missing and broken teeth) Respiratory: normal respiratory effort, lungs clear to auscultation Cardiovascular: RRR, no murmur, no edema Extremities: no pedal edema Gastrointestinal (Abdomen): normal bowel sounds, abdomen is soft, tender left lateral to PEG site without erythema or drainage; no crepitus to palpation Skin: no rashes, warm and dry Psychiatric: A+Ox3, euthymic affect Discharge Data Allergies Allergy/AdvReac Type Severity Reaction Status Date / Time No Known Allergies Allergy Verified 04/17/19 15:16 Consultations 04/17/19 16:23 ED Decision to Admit Stat 04/17/19 19:54 Consult Case Management - Discharge Planning Routine Consult Pulmonology Routine 04/18/19 14:53 Consult Gastroenterology Routine 04/20/19 16:06 Consult Patient Rep / Service Excellence [Consult Patient Services] Routine 04/24/19 19:41 Consult Case Management - Discharge Planning Routine 04/25/19 17:20 Consult General Surgery Routine 04/26/19 18:07 Consult Gastroenterology Routine 05/03/19 07:16 Consult [facility] adult probation officer Routine Procedures Performed Operation Date: 04/19/19 17:45 Actual Procedures p Esophagogastroduodenoscopy - Fracisco Prasad MD Operation Date: 04/27/19 13:10 Actual Procedures p EGD and PEG-J tube placement(Not Applicable) - Aida Hurtado MD Ordered Studies 04/18/19 09:00 CT chest HighResolution wo con Urgent 04/18/19 13:00 FL video swallow Routine 04/22/19 FL KUB Routine 04/22/19 07:49 FL fluoroscopy <1hr Routine 04/28/19 13:14 CT angio chest PE protocol Urgent Hospital Course (1) Hypoxia: 43 yo F admitted for trouble swallowing and shortness of breath found to have esophageal dysmotility and recurrent aspiration pneumonia, s/p PEG-J placement for severe malnutrition due to esophageal dysmotility. Failure to thrive, severe protein calorie malnutrition, esophageal dysmotility: - CT scan, swallow study, and EGD this admission demonstrated high propensity for aspiration given lack of esophageal motility. - Dr. Hurtado with [facility] placed PEG-J tube 04/27/18. Pt now tolerating tube feeds at goal rate of 80mL/hr for 12 hrs/day. - Pt for discharge today; Jordan tube feeding this morning gave teaching and supplies for tube feedings to both pt and her spouse. - Patient will need esophageal manometry outpatient for the confirmation of the lack of motility of the esophagus; has scheduled follow up with GI. - Scleroderma workup neg; Ach ab pending on discharge. - Mildly elevated ALT likely due to refeeding. Continues to trend down. Would recommend following in the outpatient setting. - Pt with diarrhea yesterday, however no diarrhea today. Did not collect C. diff. Pt without leukocytosis, fever, diffuse abdominal pain. Pt made aware of warning signs for C. diff, however suspect this is as a result of recent switch to liquid feeds. Aspiration pneumonia in a patient with COPD: - This all seems likely 2/2 the esophageal dysmotility and subsequent aspiration of oropharyngeal contents. Azithromycin course completed 04/26/19. -Patient spiked a white count on 04/30/19 to 19.5; CXR showing evidence of recurrent aspiration PNA (likely reflux of gastric acid or oral secretions in response to tube feeds). Started IV Zosyn on 04/30/19. No leukocytosis on discharge; have switched to Augmentin 880mg via GT BID to complete on 05/06/19. - Given recurrence of aspiration on admission pt is STRICT NPO, no oral intake. Pt may moisten mouth with water but swallowing of any liquids increases risk of aspiration events. Pt aware. - Discharged with prescription for Pepcid via GT to minimize gastric acid production. - Discussed the importance of elevating the head of her bed during feedings (IE: nighttime) to minimize aspiration. Hypoxia in recently diagnosed COPD: - Saturating to 96% on room air. - Educated patient extensively on the importance of deep breathing to help reduce atelectasis. Also counseled on smoking (cigarettes, marijuana) cessation. Have prescribed nicotine patches q21 days with pt to follow with Dr. Fang for chronic treatment. Pt reports marijuana helps with anxiety and pain and is unwilling to quit at this time. - Prescribed Breo Ellipta 100-25 1 puff daily, and Incruse Ellipta 62.5 1 puff daily for discharge. - Nurse navigator to schedule appointment with Pulmonology for follow up of new COPD. Hx Cocaine abuse: - Likely cause of poor dentition; pt used to rub cocaine on teeth when using. - Patient reports history of chronic use at a dose of 3.5gm per weekend. - Encouraged continued abstinence. Pt has been provided with dental care options for low income families. Tobacco abuse - Nicoderm patches prescribed as above. (2) Severe protein-calorie malnutrition: (3) Hypokalemia: (4) Aspiration pneumonia: (5) Dilation of esophagus: (6) Dysphagia: (7) Anxiety: (8) Depression: (9) Poor dentition: (10) Cocaine abuse: (11) Tobacco abuse: Total Time Total Time Spent Total Time Spent (In Minutes): <30 Discharge Plan Discharge Items Patient Disposition: Home - Home Health Services Reason For Visit: SOB, SEVERE COPD Discharge Diagnosis: pneumonia due to food going into the lungs, severely poor nutrition Activity: Per Instructions section Non-emergency contact: Primary Care Provider, [employer] Seam[employer] Call non-emergency contact if: your symptoms worsen Follow-up/Referrals: [facility] [Other] (Please, follow up with [facility] as soon as possible. I called the office and they are still willing to see you, but you need to call to arrange the appointment. The office is located at [address] [place] [address] (2nd floor of the [facility]) in [place]. The office phone number is [phone].) Malathi Pastor CRNP [Nurse Practitioner] - 05/05/19 3:00 pm (Please, follow up at [facility] Pulmonology Office with Malathi RAMOS on May 05 at 3:00pm. *The office is located in [address] of [facility], next to this hospital. If you need to change/cancel this appointment, call the office at [phone].) Rl Fang MD [Resident] - 05/12/19 12:50 pm (A follow up appt. has been made for you with Dr. Fang on at 12:50pm.) Diet: Clear liquid Addtl Attending Provider Instructions: You were admitted for worsening shortness of breath, in the setting of you having previously been diagnosed with COPD; during this admission, a series of images of your chest discovered that the reason your lung function was continuing to worsen was because of the high amount of food and liquids that was passing into your lungs inappropriately and your esophagus (the food tube from your mouth to your stomach) looked like it was not moving appropriately in relationship to the foods or liquids that you consumed. For this we conducted several other tests to see how your esophagus was moving, during these studies it was seen that your esophagus was not moving when we looked at it with a cam era that went down your throat. For your continued safety, it was determined that you would need a feeding tube in the stomach for at least a short time until you are able to get the final test of the strength of your esophagus that is unable to be done while you are in the hospital. As you are going home, it is important that you continue to have the tube feeds in place of the feeding that you would need in a given day; we were able to work the tube feeds up to a rate that means you would only need to be connected to the tube feeding machine for 12 hours a day, and the other 12 hours you would not need to be connected. This rate is 80milliliters of food fluid an hour. This is going to be easiest done if you start this two hours before you go to bed and then sleep for 8 hours and only need to be connected to the machine for an additional two hours. After this time, you would leave the tube in place. When you are in bed it is important that you elevate the head of the bed to help prev ent reflux into your lungs. For pain you may take [id number] Children's Tylenol or Children's Ibuprofen as needed. Follow the directions on the bottle for how much to put in your tube. Lastly, you will take a medication called Famotidine for your stomach acid twice daily into your tube. You will be called to schedule an appointment with the GI doctor for follow up of your tube. It is important to follow up with that doctor so you can also have your testing of your esophagus. It will take a while for your system to get used to liquid food. It is common to have some diarrhea in this process. If your stools continue to be loose you can try Metamucil over the counter through your tube as directed on the bottle. If you start to have profuse watery stools, fevers, blood in your stool, or an abrupt increase in your abdominal pain, call your PCP immediately. You were also treated for a pneumonia in your lungs due to food going down the wrong pipe. We have sent you home with a prescription for Augmentin liquid to put through the tube. You will continue this antibiotic until May 06. You have a follow up appointment with Dr. Fang on 05/12/18 at 12:50PM. If in the meantime you develop fevers or shaking chills, or increase in difficulty breathing, call your doctor's office right away. At that visit Dr. Fang will also discuss some labwork that is pending regarding your esophagus. For your COPD I have sent prescriptions for new inhalers; one is called Breo, the other is called Incruse. You will use both inhalers 1 puff once a day every day. You will be called to schedule an appointment with the Pulmonology office (Malathi Pastor) at 11:00AM. It is important that you stop smoking. I have sent a prescription for nicotine patches to the pharmacy to help with this. Your prima care doctor will be able to give you more refills of these medications before they run out. You were provided resources to set up a dental appointment that is within your chow range. It is important that you schedule this appointment to have your teeth cared for, to help prevent infections and to move forward with artificial teeth. All of your prescriptions were sent to the [facility] on [facility] in [place]. If any of your prescriptions are out of your chow range please call Dr. Fang's office at [phone]. Pending Studies at Discharge: Yes Stand-Alone Forms: [facility], Smoking Cessation Medications and DC Order Prescriptions: New amoxicillin-pot clavulanate 400-57 mg/5 mL Suspension For Reconstitution 880 mg G-tube BIDM 3 Days Qty: 75 RF: 0 nicotine [Nicoderm CQ] 21 mg/24 hr Patch 24 Hour 21 mg transdermal HS Qty: 14 RF: 0 Breo Ellipta 100-25 mcg/dose blister with device 1 puffs INH DAILY Qty: 28 RF: 0 Incruse Ellipta 62.5 mcg/actuation blister with device 1 puffs INH DAILY Qty: 30 RF: 0 famotidine 40 mg/5 mL (8 mg/mL) suspension 5 ml PO DAILY Qty: 50 RF: 0 Continued albuterol sulfate 90 mcg/actuation HFA aerosol inhaler 2 puff Inhalation QID PRN (Reason: Shortness Of Breath) RF: 0 Discharge Orders: Discharge Order (Routine); Ordered 05/03/19 Ordered By: Barbara Conner Admission Data Admit Date/Time: 04/17/19 18:38 Attending Provider: Leonard Coombs Admit Provider: Cassidy Clancy Primary Care Provider: Darius Alicea Other Providers: Jassi Suarez ; Cassidy Clancy ; Viraj Jackson ; Nicolas Alejandro ; Bryce Torrez ; Aida Hurtado ; [place] ; Darius Castillo Other Interventions: Discharge Summary Assessment (RN) Last Done: 05/03/19 13:48 DC Date/Time DO NOT enter until pt leaves facility: 05/03/19 16:42 Supervising Physician Co-Signing Physician Notes I personally examined the patient and verified all solomon points of history and exam, discussed case, and agree with decision making with Dr Conner. Had a little bit of diarrhea through the night, but better now. Tube was leaking a little bit, but it was found out that it was not attached well. Tolerating tube feeds well at 80 mL's per hour. Answered all questions to the best my ability, reiterated plans to patient. Patient expressed a desire to go home and feels safe doing so. Vitals noted, in general she is awake and alert pleasant no distress. HEENT normocephalic atraumatic mucous membranes moist. Breathing unlabored no accesso ry muscle use, skin shows no rashes no pallor or icterus. Ongoing poor dentition. Bilateral LL PNA with aspiration - recurrence noted on CXR, which would be c/w WBC elevation -doing better nowfinish course of Augmentin. Will have ongoing need for strict n.p.o., discussed need to be more upright during tube feeds running (discussed elevating the head of the bed) Esophageal dysmotility with reflux and PEJ placement - nutrition and GI consultation - continue TF at goal (80 mL's an hour 12 hours a day). Follow up Ach Ab testing for MG (flu shot prior to onset), outpt manometry to be set up (GI has already contacted her to do this) Malnutrition - monitor CMP, nutrition consultation appreciated - sl bump in LFTs likely relates to this and getting to goal on tube feeds --> follow periodically - but trending down. Would be reasonable to follow-up next week as an outpatient. otherwise as above Resident Activity Tracking Resident Involvement: Resident Care Provided Care Provided: Adult Hospital Medicine
[2019-05-03] MEDS: AMOXICILLIN/CLAVULANATE SUSP 400MG/5ML 50ML BOTTLE GT SCH (07:45)
[2019-05-03 08:14] LABS: Creatinine Clr Calc Pharmacy 153.2 ml/min; Est GFR (African American) > 150.0; Est GFR (Non-African American) 141.8
[2019-05-03] MEDS: FLUTICASONE/SALMETEROL 100/50 (ADVAIR) 14 PUFF/1 INHALER INH SCH (08:48)
[2019-05-03] MEDS: TIOTROPIUM BROMIDE 5 PUFF/90 MCG INH INH SCH (08:49)
[2019-05-03] MEDS: FAMOTIDINE 20 MG in SYRINGE 3 ML IV SCH (08:50)
[2019-05-03] MEDS: ENOXAPARIN INJ 40 MG/0.4 ML SYR SQ SCH (08:50)
[2019-05-03] MEDS: D5W AND 1/2NSS + 20MEQ KCL 20 MEQ/1,000 ML BAG IV SCH (08:53)
--- NOTE | 2019-05-03 18:47 | Billing Data ---
Date of Service May 03, 2019 Coding Level of Care Code D/C Day Management <30 mins
== END 2019-05-03 16:42 | disposition home health service (06) | DRG 177 ==
LOC: ED 14:38 → 2S 18:38 → SUATTDRO 18:38 → 2S 19:32 → 4W 04-22 16:17 → 3W 04-27 15:24

== ENCOUNTER 2022-02-05 10:13 | Inpatient (IN) ==
--- NOTE | 2022-02-05 10:19 | Emergency Department Note ---
Impression & Plan Acute respiratory failure with hypoxia and hypercarbia, Tobacco abuse, Acute dehydration, Malnutrition, COVID-19 ED Provider Note NAME: IAN RENDON AGE: 46 SEX: F : 1975 ARRIVES VIA: Ambulance INFORMANT: [Patient][, ] ED PROVIDER(S): [Jonn Mcgregor MD] Chief Complaint: [] HPI: Shortness of breath, hypoxemia. The patient presents for the above symptoms and reportedly had been seen in clinic today and is referred here for further evaluation treatment. The patient has a known history of COPD and is complaining of nonproductive cough. Patient smokes tobacco as well as marijuana. The patient states that she has not used cocaine in some point time. Patient denies any chest pains or abdominal pain. Patient denies any nausea vomiting or diarrhea. No dark tarry stools or bright red blood per rectum. EMS did place the patient on nasal cannula and the patient does not use oxygen at baseline at home. Patient's symptoms have remained fairly constant although the patient does feel improved with the oxygen. Patient denies any leg swelling or calf pain and no history of DVT or PE. Patient was seen yesterday due to concern for vaginal bleeding x2 weeks. The patient was noted to have uterine fibroid and cyst of the right ovary. The patient had a hemoglobin of 10.9 with a normal white count and platelet count. The patient's kidney function was unremarkable. Mild elevation in calcium at 10.2 and alk phos at 130 respectively. ROS: See HPI for pertinent positives and negatives. A total of 10 systems were reviewed and otherwise negative. Past medical history: See below Surgical history: See below Social history: See below Physical Exam: GENERAL: Thin in appearance, nasal cannula in place. EYE EXAM: Normal conjunctiva. PERRL, no anisocoria and EOM's grossly intact w/o pain. Oropharynx: Poor dentition, dry mucous membranes. NECK: Supple, no nuchal rigidity, no adenopathy, non-tender. No signs of meningismus. FROM of the neck with good chin to chest and neck extension. No stridor. LUNGS: Scant wheezes throughout. Normal chest wall mechanics. HEART: Tachycardic and regular, no MRG. ABDOMEN: Abdomen soft, non-tender, normo-active bowel sounds, no masses, no rebound or guarding. BACK: No CVA TTP. SKIN: No rashes and no bruising. UPPER EXTREMITIES: Upper extremities are grossly normal. LOWER EXTREMITIES: Grossly normal, no edema. NEURO EXAM: A&O x3, cranial nerves II-XII grossly intact, normal speech, moves all 4 extremities. Differential diagnoses: Reactive airway disease, pneumonia, pneumothorax, COPD, CHF, infections, cardiac ischemia, pulmonary embolism, musculoskeletal, gastrointestinal, as well as other pathologies. Course: Patient was seen and evaluated the bedside. Full history physical exam was performed. EKG interpreted by me [] Imaging Studies: See Below Cardiac monitoring: An order was placed for continuous cardiac monitoring. The monitor shows a rate of [] with [] rhythm. MDM: Patient was seen due to concern for hypoxemia. The patient did have blood work completed along with a VBG was treated with steroids and DuoNeb treatments. The patient did also receive IV fluids. The patient blood work showed a normal white count with a hemoglobin of 11.8. Patient may be somewhat more hemoconcentrated with this is improved compared to yesterday. The patient coags are normal. VBG with mild hypercarbia with a VBG PCO2 of 58. The patient does not appear to be an extremis and is not altered. The patient did appear to be improved with fluids neb treatments and steroids. Mild hypercalcemia 10.2. Patient is COVID-positive. The patient's chest x-ray does not show any overt consolidation. Given the patient's oxygen requirements as well as severe emaciation I did speak with the on-call hospitalist Dr. Huntley and the patient was admitted to the medicine service. Critical Care: I have personally spent 47 minutes of critical care time in direct management of this patient. This includes bedside care, interpretation of diagnostic studies, and testing, discussion with consultants, patient, and family members, and other require inpatient management activities. This 47 minutes is in excess of all separately billable procedures. Past Med/Surg History Medical History (Updated 02/06/22 @ 13:55 by Jonn Mcgregor MD) Anxiety Arthritis Constipation COPD (chronic obstructive pulmonary disease) Depression Difficulty chewing Difficulty swallowing Marijuana smoker Ovarian cyst Poor dentition Scoliosis Tobacco abuse Surgical History History of esophagogastroduodenoscopy (EGD) Family History Other Family history non-contributory Social History Smoking Status: Former smoker Tobacco Type: Cigarettes Cigarettes Per Day: 1 PACK/DAY; Second Hand Exposure: Yes; Hx Alcohol Use: No Hx Substance Use: No Preferred Language: Maltese Communication Ability: Effective Visual Impairment: No Limitations Wick Tender Required: No Beliefs That Will Affect Care: None marital status: Single Current Living Situation: Family How many Children do You have: 2 Feels Safe at Home: Yes Assistive Devices: None Allergies Allergies Allergy/AdvReac Type Severity Reaction Status Date / Time No Known Allergies Allergy Verified 02/05/22 10:51 Home Meds Previous Rx's Medication Instructions Recorded albuterol sulfate 90 mcg/actuation 2 puff inhalation QID PRN 02/05/22 aerosol inhaler Shortness Of Breath #18 grams umeclidinium 62.5 mcg-vilanterol 1 inh inhalation DAILY #60 ea 02/05/22 25 mcg/actuation powdr for inhalation (Anoro Ellipta) Results & Data (ED) Home Medications Current Medication List: was personally reviewed by me Laboratory Data Attestation: I reviewed the patient's lab results. Result diagrams: 02/05/22 10:30 02/06/22 07:16 Lab Results 02/05/22 02/05/22 02/05/22 Range/Units 10:30 10:30 10:30 WBC 10.57 (4.8-10.8) K/ul RBC 4.96 (3.93-5.22) M/uL Hgb 11.8 L (12.0-16.0) g/dl POC Hgb (12.0-16.0) g/dl Hct 40.0 (34.1-44.9) % POC Hct (37-47) % MCV 80.6 (80.0-100.0) fL MCH 23.8 L (25.0-34.0) pg MCHC 29.5 L (32.0-36.0) g/dL RDW Std Deviation 48.7 H (36.4-46.3) fL RDW Coeff of Abhishek 16.6 H (11.5-14.5) % Plt Count 268 (130-400) K/uL MPV 10.7 (9.4-12.3) fL Immature Gran % (Auto) 0.4 % Neut % (Auto) 81.7 % Lymph % (Auto) 12.6 % [place] % (Auto) 5.1 % Eos % (Auto) 0.1 % Baso % (Auto) 0.1 % Neut # (Auto) 8.64 H (1.4-6.5) K/uL Lymph # (Auto) 1.33 (1.2-3.4) K/uL [place] # (Auto) 0.54 (0.24-0.82) K/uL Eos # (Auto) 0.01 (0-0.50) K/uL Baso # (Auto) 0.01 (0-0.2) K/uL Immature Gran # (Auto) 0.04 H (0.00-0.02) K/uL PT 11.9 (9.0-12.0) Seconds INR 1.1 (0.9-1.1) APTT 23.9 (21.0-31.0) Seconds PTT Ratio 0.9 VBG pH (7.36-7.41) VBG pCO2 (38-50) mmHg VBG pO2 mmHg VBG HCO3 mmol/L VBG O2 Saturation % VBG Base Excess mEq/L POC Sodium (135-144) mmol/L Sodium 146 H (136-145) mmol/L POC Potassium (3.3-5.0) mmol/L Potassium 3.8 (3.5-5.1) mmol/L POC Chloride (101-112) mmol/L Chloride 104 (98-107) mmol/L Carbon Dioxide 28 (21-32) mmol/L POC Total CO2 (24-31) mmol/L Anion Gap 14 H (3-11) POC Anion Gap (16-25) mmol/L POC BUN (7-18) mg/dl BUN 9 (6-23) mg/dl Creatinine 0.51 L (0.6-1.2) mg/dl POC Creatinine (0.6-1.3) mg/dl Est Cr Clr Drug Dosing 97.0 ml/min Est GFR ( Amer) 133.7 ml/min Est GFR (Non-Af Amer) 115.3 ml/min BUN/Creatinine Ratio 17.6 (10-20) Glucose 94 (70-99(Fasting)) mg/dl POC Glucose (other) (70-99) mg/dl Calcium 10.2 H (8.5-10.1) mg/dl POC Ioniz Calcium Trent (1.12-1.32) mmol/l Phosphorus (2.5-4.9) mg/dl Magnesium (1.7-2.4) mg/dl Total Bilirubin 0.5 (0.2-1.0) mg/dl AST 31 (13-39) U/L ALT 17 (7-52) U/L Alkaline Phosphatase 123 H (34-104) U/L Troponin I High Sens 7.4 (0-14) pg/ml C-Reactive Protein (0-0.5) mg/dl Total Protein 8.2 (6.0-8.3) gm/dl Albumin 4.3 (3.4-5.0) gm/dl Globulin 3.9 (2.5-4.0) gm/dl Albumin/Globulin Ratio 1.1 (0.9-2) Procalcitonin (0-0.5) ng/ml SARS-CoV-2, RNA, NAAT (NEGATIVE) Blood Type Antibody Screen 02/05/22 02/05/22 02/05/22 Range/Units 10:30 10:30 10:30 WBC (4.8-10.8) K/ul RBC (3.93-5.22) M/uL Hgb (12.0-16.0) g/dl POC Hgb (12.0-16.0) g/dl Hct (34.1-44.9) % POC Hct (37-47) % MCV (80.0-100.0) fL MCH (25.0-34.0) pg MCHC (32.0-36.0) g/dL RDW Std Deviation (36.4-46.3) fL RDW Coeff of Abhishek (11.5-14.5) % Plt Count (130-400) K/uL MPV (9.4-12.3) fL Immature Gran % (Auto) % Neut % (Auto) % Lymph % (Auto) % [place] % (Auto) % Eos % (Auto) % Baso % (Auto) % Neut # (Auto) (1.4-6.5) K/uL Lymph # (Auto) (1.2-3.4) K/uL [place] # (Auto) (0.24-0.82) K/uL Eos # (Auto) (0-0.50) K/uL Baso # (Auto) (0-0.2) K/uL Immature Gran # (Auto) (0.00-0.02) K/uL PT (9.0-12.0) Seconds INR (0.9-1.1) APTT (21.0-31.0) Seconds PTT Ratio VBG pH (7.36-7.41) VBG pCO2 (38-50) mmHg VBG pO2 mmHg VBG HCO3 mmol/L VBG O2 Saturation % VBG Base Excess mEq/L POC Sodium (135-144) mmol/L Sodium (136-145) mmol/L POC Potassium (3.3-5.0) mmol/L Potassium (3.5-5.1) mmol/L POC Chloride (101-112) mmol/L Chloride (98-107) mmol/L Carbon Dioxide (21-32) mmol/L POC Total CO2 (24-31) mmol/L Anion Gap (3-11) POC Anion Gap (16-25) mmol/L POC BUN (7-18) mg/dl BUN (6-23) mg/dl Creatinine (0.6-1.2) mg/dl POC Creatinine (0.6-1.3) mg/dl Est Cr Clr Drug Dosing ml/min Est GFR ( Amer) ml/min Est GFR (Non-Af Amer) ml/min BUN/Creatinine Ratio (10-20) Glucose (70-99(Fasting)) mg/dl POC Glucose (other) (70-99) mg/dl Calcium (8.5-10.1) mg/dl POC Ioniz Calcium Trent (1.12-1.32) mmol/l Phosphorus 2.8 (2.5-4.9) mg/dl Magnesium 2.0 (1.7-2.4) mg/dl Total Bilirubin (0.2-1.0) mg/dl AST (13-39) U/L ALT (7-52) U/L Alkaline Phosphatase (34-104) U/L Troponin I High Sens (0-14) pg/ml C-Reactive Protein < 0.50 (0-0.5) mg/dl Total Protein (6.0-8.3) gm/dl Albumin (3.4-5.0) gm/dl Globulin (2.5-4.0) gm/dl Albumin/Globulin Ratio (0.9-2) Procalcitonin < 0.05 (0-0.5) ng/ml SARS-CoV-2, RNA, NAAT (NEGATIVE) Blood Type Antibody Screen 02/05/22 02/05/22 02/05/22 Range/Units 10:36 11:01 11:01 WBC (4.8-10.8) K/ul RBC (3.93-5.22) M/uL Hgb (12.0-16.0) g/dl POC Hgb 13.6 (12.0-16.0) g/dl Hct (34.1-44.9) % POC Hct 40 (37-47) % MCV (80.0-100.0) fL MCH (25.0-34.0) pg MCHC (32.0-36.0) g/dL RDW Std Deviation (36.4-46.3) fL RDW Coeff of Abhishek (11.5-14.5) % Plt Count (130-400) K/uL MPV (9.4-12.3) fL Immature Gran % (Auto) % Neut % (Auto) % Lymph % (Auto) % [place] % (Auto) % Eos % (Auto) % Baso % (Auto) % Neut # (Auto) (1.4-6.5) K/uL Lymph # (Auto) (1.2-3.4) K/uL [place] # (Auto) (0.24-0.82) K/uL Eos # (Auto) (0-0.50) K/uL Baso # (Auto) (0-0.2) K/uL Immature Gran # (Auto) (0.00-0.02) K/uL PT (9.0-12.0) Seconds INR (0.9-1.1) APTT (21.0-31.0) Seconds PTT Ratio VBG pH 7.33 L (7.36-7.41) VBG pCO2 58 H (38-50) mmHg VBG pO2 18 mmHg VBG HCO3 31 mmol/L VBG O2 Saturation < 60.0 % VBG Base Excess 3.2 mEq/L POC Sodium 144 (135-144) mmol/L Sodium (136-145) mmol/L POC Potassium 3.7 (3.3-5.0) mmol/L Potassium (3.5-5.1) mmol/L POC Chloride 104 (101-112) mmol/L Chloride (98-107) mmol/L Carbon Dioxide (21-32) mmol/L POC Total CO2 26 (24-31) mmol/L Anion Gap (3-11) POC Anion Gap 18.0 (16-25) mmol/L POC BUN 8 (7-18) mg/dl BUN (6-23) mg/dl Creatinine (0.6-1.2) mg/dl POC Creatinine 0.5 L (0.6-1.3) mg/dl Est Cr Clr Drug Dosing ml/min Est GFR ( Amer) ml/min Est GFR (Non-Af Amer) ml/min BUN/Creatinine Ratio (10-20) Glucose (70-99(Fasting)) mg/dl POC Glucose (other) 98 (70-99) mg/dl Calcium (8.5-10.1) mg/dl POC Ioniz Calcium Trent 1.20 (1.12-1.32) mmol/l Phosphorus (2.5-4.9) mg/dl Magnesium (1.7-2.4) mg/dl Total Bilirubin (0.2-1.0) mg/dl AST (13-39) U/L ALT (7-52) U/L Alkaline Phosphatase (34-104) U/L Troponin I High Sens (0-14) pg/ml C-Reactive Protein (0-0.5) mg/dl Total Protein (6.0-8.3) gm/dl Albumin (3.4-5.0) gm/dl Globulin (2.5-4.0) gm/dl Albumin/Globulin Ratio (0.9-2) Procalcitonin (0-0.5) ng/ml SARS-CoV-2, RNA, NAAT (NEGATIVE) Blood Type O Positive Antibody Screen NEGATIVE 02/05/22 Range/Units 11:54 WBC (4.8-10.8) K/ul RBC (3.93-5.22) M/uL Hgb (12.0-16.0) g/dl POC Hgb (12.0-16.0) g/dl Hct (34.1-44.9) % POC Hct (37-47) % MCV (80.0-100.0) fL MCH (25.0-34.0) pg MCHC (32.0-36.0) g/dL RDW Std Deviation (36.4-46.3) fL RDW Coeff of Abhishek (11.5-14.5) % Plt Count (130-400) K/uL MPV (9.4-12.3) fL Immature Gran % (Auto) % Neut % (Auto) % Lymph % (Auto) % [place] % (Auto) % Eos % (Auto) % Baso % (Auto) % Neut # (Auto) (1.4-6.5) K/uL Lymph # (Auto) (1.2-3.4) K/uL [place] # (Auto) (0.24-0.82) K/uL Eos # (Auto) (0-0.50) K/uL Baso # (Auto) (0-0.2) K/uL Immature Gran # (Auto) (0.00-0.02) K/uL PT (9.0-12.0) Seconds INR (0.9-1.1) APTT (21.0-31.0) Seconds PTT Ratio VBG pH (7.36-7.41) VBG pCO2 (38-50) mmHg VBG pO2 mmHg VBG HCO3 mmol/L VBG O2 Saturation % VBG Base Excess mEq/L POC Sodium (135-144) mmol/L Sodium (136-145) mmol/L POC Potassium (3.3-5.0) mmol/L Potassium (3.5-5.1) mmol/L POC Chloride (101-112) mmol/L Chloride (98-107) mmol/L Carbon Dioxide (21-32) mmol/L POC Total CO2 (24-31) mmol/L Anion Gap (3-11) POC Anion Gap (16-25) mmol/L POC BUN (7-18) mg/dl BUN (6-23) mg/dl Creatinine (0.6-1.2) mg/dl POC Creatinine (0.6-1.3) mg/dl Est Cr Clr Drug Dosing ml/min Est GFR ( Amer) ml/min Est GFR (Non-Af Amer) ml/min BUN/Creatinine Ratio (10-20) Glucose (70-99(Fasting)) mg/dl POC Glucose (other) (70-99) mg/dl Calcium (8.5-10.1) mg/dl POC Ioniz Calcium Trent (1.12-1.32) mmol/l Phosphorus (2.5-4.9) mg/dl Magnesium (1.7-2.4) mg/dl Total Bilirubin (0.2-1.0) mg/dl AST (13-39) U/L ALT (7-52) U/L Alkaline Phosphatase (34-104) U/L Troponin I High Sens (0-14) pg/ml C-Reactive Protein (0-0.5) mg/dl Total Protein (6.0-8.3) gm/dl Albumin (3.4-5.0) gm/dl Globulin (2.5-4.0) gm/dl Albumin/Globulin Ratio (0.9-2) Procalcitonin (0-0.5) ng/ml SARS-CoV-2, RNA, NAAT POSITIVE A* (NEGATIVE) Blood Type Antibody Screen Administered Medications Dexamethasone 6 mg/ Syringe 1.5 mls @ 1 mls/min IV DAILY SARITA Stop: 02/16/22 08:59 Last Admin: 02/06/22 09:35 Dose: 1 mls/min Documented By: JANETT Acetaminophen (Ofirmev) 65 mls @ 200 mls/hr IV Q8H PRN; Protocol PRN Reason: Pain or Fever Stop: 02/08/22 19:30 Last Infusion: 02/05/22 21:12 Dose: 0 mls/hr Documented By: Admin: 02/05/22 20:32 Dose: 200 mls/hr Documented By: MENA Magnesium Sulfate/Dextrose (Magnesium Sulfate / D5w) 1 gm in 100 mls @ 50 mls/hr IV Q2H SARITA Stop: 02/06/22 14:59 Last Admin: 02/06/22 12:18 Dose: 50 mls/hr Documented By: JANETT Ondansetron HCl (Ondansetron Inj 2 Mg/Ml 2 Ml Vial) 4 mg IV Q6H PRN PRN Reason: Nausea And Vomiting Stop: 11/11/22 19:30 Last Admin: 02/05/22 19:53 Dose: 4 mg Documented By: MENA Umeclidinium/Vilanterol (Umeclidinium/Vilanterol 62.5/25mcg 7 Puffs/Inhaler) 1 puffs INH DAILY SARITA Stop: 03/07/22 15:49 Last Admin: 02/06/22 09:36 Dose: 1 puffs Documented By: Admin: 02/05/22 16:54 Dose: 1 puffs Documented By: KENDALL Discontinued Medications Albuterol (Albut/Ipratrop 3mg/0.5mg Neb 3 Ml Vial) 12 ml INH ONE STA Stop: 02/05/22 10:26 Last Admin: 02/05/22 10:55 Dose: 12 ml Documented By: LOVELY Sodium Chloride (Nss) 500 mls @ 999 mls/hr IV .Q31M STA Stop: 02/05/22 10:55 Last Infusion: 02/05/22 11:08 Dose: 0 mls/hr Documented By: Admin: 02/05/22 10:36 Dose: 999 mls/hr Documented By: HUMBERTO Sodium Chloride (Nss 1000ml) 1,000 mls @ 999 mls/hr IV .Q1H1M ONE Stop: 02/05/22 13:47 Last Infusion: 02/05/22 16:54 Dose: 0 mls/hr Documented By: Admin: 02/05/22 14:00 Dose: 999 mls/hr Documented By: ENRIKE Remdesivir 200 mg/ Sodium (Chloride) 250 mls @ 125 mls/hr IV ONE STA; Protocol Stop: 02/05/22 17:54 Last Infusion: 02/05/22 19:17 Dose: 0 mls/hr Documented By: Admin: 02/05/22 16:56 Dose: 125 mls/hr Documented By: KENDALL Sodium Chloride (1/2 Nss) 1,000 mls @ 125 mls/hr IV .Q8H SARITA Stop: 02/06/22 07:49 Last Infusion: 02/06/22 08:15 Dose: 0 mls/hr Documented By: Admin: 02/06/22 02:01 Dose: 125 mls/hr Documented By: Infusion: 02/06/22 02:01 Dose: 125 mls/hr Documented By: Infusion: 02/05/22 19:17 Dose: 125 mls/hr Documented By: Infusion: 02/05/22 17:35 Dose: 0 mls/hr Documented By: Admin: 02/05/22 16:57 Dose: 125 mls/hr Documented By: KENDALL Potassium Phosphate 9 mmol/ (Sodium Chloride) 253 mls @ 88 mls/hr IV ONE STA Stop: 02/06/22 12:09 Last Infusion: 02/06/22 12:28 Dose: 0 mls/hr Documented By: Admin: 02/06/22 09:35 Dose: 88 mls/hr Documented By: JANETT Methylprednisolone (Methylprednisolone 125 Mg/2 Ml Vial) 60 mg IV NOW STA Stop: 02/05/22 10:26 Last Admin: 02/05/22 10:42 Dose: 60 mg Documented By: AM Imaging Data Radiologist's Impression: Chest X-Ray 02/05/22 10:26 XR chest 1V portable CLINICAL HISTORY: Dyspnea. COMPARISON STUDY: Chest CT April 28, 2019. Chest radiograph December 20, 2019. FINDINGS: Lung volumes are normal. No consolidation is identified to suggest pneumonia. Linear bibasilar opacities are similar to prior exam. There is no pneumothorax or pleural effusion. Cardiac size is normal. Mediastinal contours are normal. There is no evidence for pulmonary edema. IMPRESSION: No acute cardiopulmonary findings. Linear bibasilar opacities suggestive atelectasis or scarring. ACT 112: Negative or not required by law. Electronically signed by: Babatunde Back M.D. 02/05/2022 10:47 AM Discharge Plan Visit Data Chief Complaint: Respiratory Problems Stated Complaint: low SPO2, here for vag bleed this week ED Provider: Jonn Mcgregor Discharge Problem: Acute respiratory failure with hypoxia and hypercarbia, Tobacco abuse, Acute dehydration, Malnutrition, COVID-19 Patient Disposition: Admitted As Inpatient Discharge Instructions Interventions: ED Discharge Assessment Last Done: 02/05/22 14:14
[2022-02-05] MEDS ORDERED: ALBUT/IPRATROP 3MG/0.5MG NEB 3 ML VIAL INH STA (10:25)
[2022-02-05] MEDS ORDERED: methylPREDNISolone 125 MG/2 ML VIAL IV STA (10:25)
[2022-02-05] MEDS ORDERED: SODIUM CHLORIDE 0.9% 500 ML IV STA (10:25)
[2022-02-05 10:42] LABS: Basophils # (auto) 0.01 K/uL (0-0.2); Basophils % (auto) 0.1 %; Eosinophils # (auto) 0.01 K/uL (0-0.50); Eosinophils % (auto) 0.1 %; Hemoglobin 11.8 g/dl (12.0-16.0); Immature Granulocytes # (auto) 0.04 K/uL (0.00-0.02); Immature Granulocytes % (auto) 0.4 %; Lymphocytes # (auto) 1.33 K/uL (1.2-3.4); Lymphocytes % (auto) 12.6 %; Mean Corpuscular Hemoglobin 23.8 pg (25.0-34.0); Mean Corpuscular Hgb Conc 29.5 g/dL (32.0-36.0); Mean Corpuscular Volume 80.6 fL (80.0-100.0); Mean Platelet Volume 10.7 fL (9.4-12.3); Monocytes # (auto) 0.54 K/uL (0.24-0.82); Monocytes % (auto) 5.1 %; Neutrophils # (auto) 8.64 K/uL (1.4-6.5); Neutrophils % (auto) 81.7 %; Platelet Count 268 K/uL (130-400); RDW Coefficient of Variation 16.6 % (11.5-14.5); RDW Standard Deviation 48.7 fL (36.4-46.3); Red Blood Count 4.96 M/uL (3.93-5.22); White Blood Count 10.57 K/ul (4.8-10.8)
[2022-02-05 10:49] LABS: iSTAT Creatinine 0.5 mg/dl (0.6-1.3); iSTAT Hemoglobin 13.6 g/dl (12.0-16.0); iSTAT Ionized Calcium 1.2 mmol/l (1.12-1.32); iSTAT Potassium 3.7 mmol/L (3.3-5.0)
--- NOTE | 2022-02-05 10:49 | XRay Report ---
XR chest 1V portable CLINICAL HISTORY: Dyspnea. COMPARISON STUDY: Chest CT April 28, 2019. Chest radiograph December 20, 2019. FINDINGS: Lung volumes are normal. No consolidation is identified to suggest pneumonia. Linear bibasi lar opacities are similar to prior exam. There is no pneumothorax or pleural effusion. Cardiac size i s normal. Mediastinal contours are normal. There is no evidence for pulmonary edema. IMPRESSION: No acute cardiopulmonary findings. Linear bibasilar opacities suggestive atelectasis or scarring. ACT 112: Negative or not required by law. Electronically signed by: Babatunde Back M.D. 02/05/2022 10:47 AM
[2022-02-05 10:52] LABS: INR 1.1 (0.9-1.1); Partial Thromboplastin Ratio 0.9; Partial Thromboplastin Time 23.9 Seconds (21.0-31.0); Prothrombin Time 11.9 Seconds (9.0-12.0)
[2022-02-05 11:06] LABS: Troponin I High Sensitivity 7.4 pg/ml (0-14)
[2022-02-05 11:07] LABS: Albumin Globulin Ratio 1.1 (0.9-2); Albumin Level 4.3 gm/dl (3.4-5.0); BUN Creatinine Ratio 17.6 (10-20); Bilirubin,Total 0.5 mg/dl (0.2-1.0); Calcium 10.2 mg/dl (8.5-10.1); Est GFR (African American) 133.7 ml/min; Est GFR (Non-African American) 115.3 ml/min; Globulin 3.9 gm/dl (2.5-4.0); Potassium 3.8 mmol/L (3.5-5.1); Total Protein 8.2 gm/dl (6.0-8.3)
[2022-02-05 11:33] LABS: Base Excess VBG 3.2 mEq/L; HCO3 VBG 31 mmol/L; Oxygen Saturation VBG < 60.0 %; PCO2 VBG 58 mmHg (38-50); PO2 VBG 18 mmHg; pH VBG 7.33 (7.36-7.41)
[2022-02-05] MEDS ORDERED: SODIUM CHLORIDE 0.9% 1000ML 1,000 ML IV ONE (12:47)
--- NOTE | 2022-02-05 12:48 | History & Physical Report ---
Date of Service February 05, 2022 Assessment & Plan (1) Acute respiratory failure with hypoxia: Plan: 46-year-old female with a history of dysphagia/J-tube placement removed more than 1 year ago who presents with acute hypoxic respiratory failure 2/2 COVID- pneumonia with no signs of superimposed aspiration pneumonia/bacterial pneumonia onAdmitting chest x-ray Acute hypoxic respiratory failure On 3 L nasal cannula on admission CXR: No acute findings, linear bibasilar opacities? Atelectasis versus scarring No leukocytosis NLR: 6.5 VB.33/58/18/31, incompletely compensated respiratory acidosis Sodium 144, potassium 3.7, creatinine with normal baseline and 0.51 on admission Troponin high-sensitivity normal on admission EKG: Sinus tachycardia, LBBB similar to prior? V4/V5 change, QRS 122, QTc 453 History of esophageal dysmotility with aspiration events. - EGD 03/2019: Normal stomach, normal duodenal bulb, no evidence of hernia/inflammation/stricture PEGJ placed 04/27/2019 Procalcitonin pending Patient with high risk of aspiration as noted previously, no signs of aspiration pneumonia/superimposed pneumonia on CXR and is afebrile without leukocytosis. Will follow at this time, defer antibacterial coverage. COVID positive with hypoxemia. Dexamethasone daily. Remdesivir daily, no kidney dysfunction or transaminitis. Chronic elevated alk phos First day of symptoms approximately 02/03/2022 Dexamethasone daily Discussed risk/benefits of remdesivir. Will initiate for 5-day course. CRP, Pro-Murray pending History of vaginal bleeding Recently seen in ER 02/04/2022, hemoglobin stable, ultrasound as noted. 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 intake, acutely worsened in the setting of COVID Patient with low p.o. intake at baseline, reports he is able to tolerate normal food textures well had a J-tube removed 1 year ago with concerns for aspiration/achalasia Speech consulted, nutrition consulted Boost supplements Magnesium/phosphorus levels added on History of COPD: PFT 10/2019: Suboptimal test, could not hold for 6 seconds FVC 1.78 (53%), FEV1 1.39 (49%), FEV1/FVC 78 (94%), DLCO 15.5 (58%). No obstructive dysfunction, insignificant bronchodilator response, low normal TLC, moderate decrease in DLCO which corrects for VA, nonspecific air trapping, improvement compared to 05/2019 exam Pulmonary 11/2019: [id number] smoking history quit 03/2019. Normal alpha 1 antitrypsin level with PI*MM phenotype. Continue Anoro daily, albuterol as needed. Referred to pulmonary rehab Acute hypoxic events previously thought to be due to aspiration History of cocaine abuse Prior use of 3.5 g per weekend, No recent cocaine use per patient on HPI History of achalasia/aspiration with prior PEG tube placement No swallowing difficulty in the last year, J-tube was removed more than a year ago per patient and family. No recurrent aspiration events CXR without evidence of aspiration pneumonia Pro-Murray pending Follow closely, speech consulted DVT prophylaxis: Lovenox, COVID DVT prophylaxis Diet: Regular, speech consulted for texture Disposition: Med/telemetry for tachycardia, downgrade if doing well CODE STATUS: Full code discussed with patient. Surrogate decision maker would be her mother (2) COVID-19: (3) COPD (chronic obstructive pulmonary disease): (4) Marijuana smoker: (5) Severe protein-calorie malnutrition: (6) Dysphagia: (7) Abnormal vaginal bleeding: History of Present Illness Primary Care Provider: NO PCP Loulou Pryor is a 46-year-old female who presents with acute hypoxemic respiratory failure 2/2 COVID-pneumonia. Past medical history of arthritis, COPD with alpha antitrypsin PI*MM, depression with anxiety, constipation, vaginal bleeding. Recently discharged from the ER 02/04/2022 after presenting with abnormal vaginal bleeding for a week longer than normal menstrual cycle without being particularly painful or heavy. Was noted to have a 5.6 cm right ovarian cyst with benign appearance but increased in size compared to prior, mural fibroids, and endometrial thickness of 9 mm. Mild anemia, was discharged to outpatient follow-up with [facility] TILE LAYER HELPER. Stable at discharge at that time. Reports symptoms of shortness of breath which began 3 days ago, worsened acutely this morning which presents her to come into the ER. COVID-positive. Has had a cough for 3 days, clear white productive sputum a little bit at a time. Reports normally does have a cough due to a past history of smoking, none since 2019. Does endorse smoking marijuana 2-3 times a week for pain. Denies other drug use including any recent illicit drug use/cocaine use. Denies fevers. Endorses has felt warm then chilly in the last day or 2, did have some chills/sweats this morning. No chest pain/chest pressure. Did receive the COVID vaccination x2 on date as noted below. Denies chest pain, chest pressure, palpitations. Feels a little lightheaded and tired. No nausea/vomiting/diarrhea, but appetite has been extremely poor with minimal intake for 3 days. Note she does have a history of difficulty swallowing/aspiration/poor intake for which she had a J- tube, this was removed over a year ago and she has had no difficulty eating/drinking normal foods in the last year with no aspiration events. She is seen at the bedside with her mother and boyfriend who confirm this.Medical history reviewed, surgical history reviewed, social history reviewed.Patient has not followed up recently with a doctor, notes she was on a daily inhaler and albuterol as needed, has not followed up since 2019 and has not refilled these medications. Reports that she is still supposed to take a daily inhaler, just has not been seen for follow-up and that prescription . Pfizer 12/2020, Pfizer x2 01/2021 Allergies Allergy/AdvReac Type Severity Reaction Status Date / Time No Known Allergies Allergy Verified 02/05/22 10:51 Home Medications Medication Instructions Recorded Confirmed Type albuterol sulfate 90 mcg/actuation 2 puff inhalation QID PRN 02/05/22 02/05/22 Rx aerosol inhaler Shortness Of Breath #18 grams umeclidinium 62.5 mcg-vilanterol 1 inh inhalation DAILY #60 ea 02/05/22 02/05/22 Rx 25 mcg/actuation powdr for inhalation (Anoro Ellipta) Past Med/Surg History Medical History Anxiety Arthritis Constipation COPD (chronic obstructive pulmonary disease) Depression Difficulty chewing Difficulty swallowing Marijuana smoker Ovarian cyst Poor dentition Scoliosis Tobacco abuse Surgical History History of esophagogastroduodenoscopy (EGD) Family History Other Family history non-contributory Social History Smoking Status: Former smoker Tobacco Type: Cigarettes Cigarettes Per Day: 1 PACK/DAY; Second Hand Exposure: Yes; Hx Alcohol Use: No Hx Substance Use: No Preferred Language: Jamaican Communication Ability: Effective Visual Impairment: No Limitations Soil Engineer Required: No Beliefs That Will Affect Care: None marital status: Single Current Living Situation: Family How many Children do You have: 2 Feels Safe at Home: Yes Assistive Devices: None Review of Systems Review of Systems: All systems reviewed & are unremarkable except as noted in Subjective Physical Exam Physical Exam: General: Thin, nontoxic.Alert and oriented x3, follows commands appropriately HEENT: Atraumatic, normocephalic. PERLAA/Eom intact, vision.hearing grossly intact Pulm: Diminished, no wheezes/rales/rhonchi is appreciated. On nasal cannula.. Symmetrical chest rise. No increase in work of breathing. No respiratory distress. Cardiac: Regular, tachycardic. Radial pulses intact and symmetrical. Abdominal: Nontender, nondistended, soft. BS present. Extremities: Thin. Moves all extremities equally. No calf asymmetry. Sensation soft touch intact in hands and feet Results & Data Results & Data ([facility]) Vital Signs (Past 12 Hours) Vital Signs Temp Pulse Pulse Resp BP BP Pulse Ox 02/05/22 12:44 124 H 24 122/79 90 02/05/22 12:27 87 L 02/05/22 11:51 108 H 26 H 122/79 98 02/05/22 11:12 94 H 26 H 122/79 100 02/05/22 10:55 92 H 22 97 02/05/22 10:31 88 L 02/05/22 10:21 36.8 C 102 H 26 H 122/79 88 L O2 Del Method O2 Flow Rate 02/05/22 12:44 Nasal Cannula 4 02/05/22 12:27 Nasal Cannula 3 02/05/22 11:51 Nebulizer 02/05/22 11:12 Nebulizer 02/05/22 10:55 Nasal Cannula 3 10/12/22 10:31 Room Air 0 02/05/22 10:21 Room Air PG Care Time/CCT Total # of Minutes Spent Total Time Spent with Patient: Total time spent is greater than 50% in coordination of care (as documented) at patient's floor/unit and/or counseling patient: Coding Level of Care Code 54828 Initial Inpt Care Lvl 3 Diagnoses Acute respiratory failure with hypoxia J96.01 COVID-19 U07.1 COPD (chronic obstructive pulmonary disease) J44.9 Marijuana smoker F12.90 Severe protein-calorie malnutrition E43 Dysphagia R13.10 Abnormal vaginal bleeding N93.9
[2022-02-05 14:12] LABS: Phosphorus 2.8 mg/dl (2.5-4.9)
--- NOTE | 2022-02-05 14:40 | Electrocardiogram Report ---
Test Reason : Blood Pressure : / mmHG Vent. Rate : 115 BPM Atrial Rate : 115 BPM P-R Int : 184 ms QRS Dur : 122 ms QT Int : 328 ms P-R-T Axes : 089 -15 107 degrees QTc Int : 453 ms Poor data quality, interpretation may be adversely affected Sinus tachycardia Left bundle branch block Abnormal ECG When compared with ECG of 18-APR-2019 07:45, QRS axis Shifted right T wave amplitude has increased in Anterior leads Confirmed by Blaise Chambers ([id number]) on 02/05/2022 2:40:11 PM Referred By: REFERRED SELF Confirmed By:Blaise Chambers
[2022-02-05] MEDS ORDERED: POLYETHYLENE (MIRALAX) 17 GM PACK PO PRN (15:50)
[2022-02-05] MEDS ORDERED: ACETAMINOPHEN 325 MG TAB PO PRN (15:50)
[2022-02-05] MEDS ORDERED: LEVALBUTEROL TARTRATE 15 GM HFA.AER.AD INH PRN (15:50)
[2022-02-05] MEDS ORDERED: REMDESIVIR 200 MG in SODIUM CHLORIDE 0.9% 210 ML IV STA (15:55)
[2022-02-05] MEDS: UMECLIDINIUM/VILANTEROL 62.5/25MCG 7 PUFFS/INHALER INH SCH (16:54)
[2022-02-05] MEDS: SODIUM CHLORIDE 0.45 % 1,000 ML IV SCH (16:57)
[2022-02-05] MEDS ORDERED: ONDANSETRON INJ 2 MG/ML 2 ML VIAL IV PRN (19:31)
[2022-02-05] MEDS: ACETAMINOPHEN 65 ML IV PRN (20:32)
[2022-02-06] MEDS: SODIUM CHLORIDE 0.45 % 1,000 ML IV SCH (02:01)
[2022-02-06 08:04] LABS: INR 1.3 (0.9-1.1); Prothrombin Time 13.4 Seconds (9.0-12.0)
[2022-02-06 08:20] LABS: Alanine Aminotransferase 11 U/L (7-52); Albumin Globulin Ratio 1.2 (0.9-2); Albumin Level 3.2 gm/dl (3.4-5.0); Alkaline Phosphatase 80 U/L (34-104); Anion Gap 5 (3-11); Aspartate Aminotransferase 21 U/L (13-39); BUN Creatinine Ratio 22.6 (10-20); Bilirubin,Total 0.4 mg/dl (0.2-1.0); Blood Urea Nitrogen 7 mg/dl (6-23); C Reactive Protein < 0.50 mg/dl (0-0.5); Calcium 8.5 mg/dl (8.5-10.1); Carbon Dioxide 27 mmol/L (21-32); Chloride 106 mmol/L (98-107); Creatinine Clr Calc Pharmacy 159.3 ml/min; Est GFR (African American) > 150.0 ml/min; Est GFR (Non-African American) 135.8 ml/min; Globulin 2.6 gm/dl (2.5-4.0); Glucose 74 mg/dl (70-99(Fasting)); Phosphorus 1.8 mg/dl (2.5-4.9); Potassium 3.7 mmol/L (3.5-5.1); Sodium 138 mmol/L (136-145); Total Protein 5.8 gm/dl (6.0-8.3)
[2022-02-06] MEDS ORDERED: POTASSIUM PHOS 3 MMOL/1 ML INFUSION IV STA (08:55)
[2022-02-06 09:16] LABS: Magnesium 1.6 mg/dl (1.7-2.4)
[2022-02-06] MEDS ORDERED: POTASSIUM PHOSPHATE 9 MMOL in SODIUM CHLORIDE 0.9% 250 ML IV STA (09:17)
[2022-02-06] MEDS: dexAMETHasone 6 MG in SYRINGE 0 ML IV SCH (09:35)
[2022-02-06] MEDS: UMECLIDINIUM/VILANTEROL 62.5/25MCG 7 PUFFS/INHALER INH SCH (09:36)
[2022-02-06] MEDS: MAGNESIUM SULFATE / D5W 1 GM/100 ML BAG IV SCH ×2 (12:18→16:08)
[2022-02-06] MEDS: REMDESIVIR 100 MG in SODIUM CHLORIDE 0.9% 230 ML IV SCH (15:04)
[2022-02-06] MEDS: THIAMINE HCL 100 MG in SYRINGE 9 ML IV SCH ×2 (15:04→20:38)
--- NOTE | 2022-02-06 17:33 | Hospitalist Progress Note ---
Date of Service February 06, 2022 Assessment & Plan (1) Acute respiratory failure with hypoxia: Plan: Secondary to COVID-19 pneumonia although high risk of aspiration in addition On 3 L nasal cannula on admission History of esophageal dysmotility with aspiration events - EGD 03/2019: Normal stomach, normal duodenal bulb, no evidence of hernia/inflammation/stricture. PEGJ placed 04/27/2019 not interested in this again. Patient with high risk of aspiration as noted previously, no signs of aspiration pneumonia/superimposed pneumonia on CXR and is afebrile without leukocytosis. Will follow at this time, defer antibacterial coverage. (2) COVID-19: Plan: First day of symptoms approximately 02/03/2022 Dexamethasone and remdesivir CRP negative (3) COPD (chronic obstructive pulmonary disease): Plan: PFT 10/2019: Suboptimal test, could not hold for 6 seconds FVC 1.78 (53%), FEV1 1.39 (49%), FEV1/FVC 78 (94%), DLCO 15.5 (58%). No obstructive dysfunction, insignificant bronchodilator response, low normal TLC, moderate decrease in DLCO which corrects for VA, nonspecific air trapping, improvement compared to 05/2019 exam Pulmonary 11/2019: [id number] smoking history quit 03/2019. Normal alpha 1 antitrypsin level with PI*MM phenotype. Continue Anoro daily, albuterol as needed. Referred to pulmonary rehab Acute hypoxic events previously thought to be due to aspiration (4) Marijuana smoker: Plan: History of cocaine abuse Prior use of 3.5 g per weekend, No recent cocaine use per patient on HPI (5) Severe protein-calorie malnutrition: Plan: Poor p.o. intake, acutely worsened in the setting of COVID Patient with low p.o. intake at baseline, reports he is able to tolerate normal food textures well had a J-tube removed 1 year ago with concerns for aspiration/achalasia Boost supplements Mg and Phos replacement prescribed for today. Will repeat levels daily due to concern for refeeding syndrome with malnutrition (6) Dysphagia: Plan: No swallowing difficulty in the last year, J-tube was removed more than a year ago per patient and family. No recurrent aspiration events CXR without evidence of aspiration pneumonia Pro-Murray negative on admission Follow closely, speech consulted - remains high aspiration risk, but patient accepting of this (7) Abnormal vaginal bleeding: Plan: Recently seen in ER 02/04/2022, hemoglobin stable, ultrasound as noted. 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 Surrogate decision maker would be her mother Admission and Anticipated Discharge Date Admission Date: February 05, 2022 Subjective Patient reports improvement in her appetite. No diarrhea. No significant shortness of breath at rest but intermittent and much worse on exertion. No chest or abdominal pain. Review of Systems Review of Systems: All systems reviewed & are unremarkable except as noted in Subjective Physical Exam Constitutional: well developed; + not well nourished and no acute distress Respiratory: normal respiratory effort; no respiratory distress Gastrointestinal (Abdomen): normal bowel sounds, soft, nontender, no hepatosplenomegaly Musculoskeletal: no cyanosis or clubbing, extremities motor strength 5/5 Neurologic: moves all extremities and awake; not confused Psychiatric: A+Ox3, euthymic affect Results & Data Results & Data ([facility]) Vital Signs (Past 12 Hours) Vital Signs Temp Pulse Pulse Resp BP Pulse Ox O2 Del Method 02/06/22 15:58 108 H 02/06/22 07:40 Nasal Cannula 02/06/22 08:16 37.7 C H 60 18 109/72 98 Oxymask 02/06/22 07:15 80 O2 Flow Rate 02/06/22 15:58 02/06/22 07:40 4 02/06/22 08:16 02/06/22 07:15 PG Care Time/CCT Total # of Minutes Spent Total Time Spent with Patient: Total time spent is greater than 50% in coordination of care (as documented) at patient's floor/unit and/or counseling patient: Coding Level of Care Code 39458 Subseq Hosp Care Lvl 2 Diagnoses Acute respiratory failure with hypoxia J96.01 COVID-19 U07.1 COPD (chronic obstructive pulmonary disease) J44.9 Marijuana smoker F12.90 Severe protein-calorie malnutrition E43 Dysphagia R13.10 Abnormal vaginal bleeding N93.9
--- NOTE | 2022-02-06 17:49 | Fluoroscopy Report ---
MODIFIED BARIUM SWALLOW CLINICAL HISTORY: r/o aspiration COMPARISON STUDY: Modified barium swallow April 18, 2019. FLUOROSCOPY TIME: 2 minutes. TECHNIQUE: A modified barium swallow was performed in conjunction with Speech Pathology. The patient ingested varying consistencies of barium containing material. Video fluoroscopy was performed. FINDINGS: Note is again made of a significantly weakened swallowing mechanism, as shown on modified b arium swallow of April 18, 2019. Significant residuals were noted with multiple consistencies. Mul tiple episodes of silent tracheal aspiration were noted with swallows of thin liquids as well as mild ly thick liquids and pudding. Laryngeal elevation was diminished. Epiglottic inversion was also dimin ished. IMPRESSION: 1. Significantly weakened swallowing mechanism with tracheal aspiration with multiple consistencies. Similar findings shown on prior modified barium swallow. 2. Full recommendations by Speech pathology to follow. ACT 112: Negative or not required by law. Electronically signed by: Babatunde Back M.D. 02/06/2022 5:46 PM
[2022-02-07 06:56] LABS: Anion Gap 6 (3-11); BUN Creatinine Ratio 34.5 (10-20); Blood Urea Nitrogen 10 mg/dl (6-23); Calcium 8.9 mg/dl (8.5-10.1); Carbon Dioxide 28 mmol/L (21-32); Chloride 105 mmol/L (98-107); Creatinine Clr Calc Pharmacy 169.1 ml/min; Est GFR (African American) > 150.0 ml/min; Est GFR (Non-African American) 138.9 ml/min; Glucose 71 mg/dl (70-99(Fasting)); Potassium 3.4 mmol/L (3.5-5.1); Sodium 139 mmol/L (136-145)
[2022-02-07 07:29] LABS: Alanine Aminotransferase 11 U/L (7-52); Albumin Globulin Ratio 1.3 (0.9-2); Albumin Level 3.4 gm/dl (3.4-5.0); Alkaline Phosphatase 81 U/L (34-104); Aspartate Aminotransferase 18 U/L (13-39); Bilirubin,Total 0.3 mg/dl (0.2-1.0); Globulin 2.6 gm/dl (2.5-4.0); Phosphorus 1.3 mg/dl (2.5-4.9)
[2022-02-07] MEDS ORDERED: POTASSIUM PHOS 3 MMOL/1 ML INFUSION IV STA (07:32)
[2022-02-07] MEDS ORDERED: ERGOCALCIFEROL 50,000 UNITS 1250 MCG CAP PO ONE (07:45)
[2022-02-07] MEDS ORDERED: POTASSIUM PHOSPHATE 21 MMOL in DEXTROSE 5% 500 ML IV ONE (08:00)
[2022-02-07] MEDS: CHOLECALCIFEROL 1,000 UNITS 25 MCG TAB PO SCH (09:03)
[2022-02-07] MEDS: dexAMETHasone 6 MG in SYRINGE 0 ML IV SCH (09:04)
[2022-02-07] MEDS: THIAMINE HCL 100 MG in SYRINGE 9 ML IV SCH ×3 (09:04→20:02)
[2022-02-07] MEDS: UMECLIDINIUM/VILANTEROL 62.5/25MCG 7 PUFFS/INHALER INH SCH (09:05)
[2022-02-07] MEDS ORDERED: POTASSIUM CHLORIDE CRTAB 20 MEQ TABCR PO STA (10:04)
[2022-02-07] MEDS: REMDESIVIR 100 MG in SODIUM CHLORIDE 0.9% 230 ML IV SCH (12:16)
[2022-02-07] MEDS: POT PHOSPHATE MONOBASIC W/ SOD TAB PO SCH ×3 (12:18→20:02)
--- NOTE | 2022-02-07 19:15 | Hospitalist Progress Note ---
Date of Service February 07, 2022 Assessment & Plan (1) Acute respiratory failure with hypoxia: Plan: Secondary to COVID-19 pneumonia although high risk of aspiration in addition On 3 L nasal cannula on admission History of esophageal dysmotility with aspiration events - EGD 03/2019: Normal stomach, normal duodenal bulb, no evidence of hernia/inflammation/stricture. PEGJ placed 04/27/2019 not interested in this again. Patient with high risk of aspiration as noted previously, no signs of aspiration pneumonia/superimposed pneumonia on CXR and is afebrile without leukocytosis. Will follow at this time, defer antibacterial coverage. (2) COVID-19: Plan: First day of symptoms approximately 02/03/2022 Continue Dexamethasone and remdesivir due to ongoing hypoxia CRP negative (3) COPD (chronic obstructive pulmonary disease): Plan: PFT 10/2019: Suboptimal test, could not hold for 6 seconds FVC 1.78 (53%), FEV1 1.39 (49%), FEV1/FVC 78 (94%), DLCO 15.5 (58%). No obstructive dysfunction, insignificant bronchodilator response, low normal TLC, moderate decrease in DLCO which corrects for VA, nonspecific air trapping, improvement compared to 05/2019 exam Pulmonary 11/2019: [id number] smoking history quit 03/2019. Normal alpha 1 antitrypsin level with PI*MM phenotype. Continue Anoro daily, albuterol as needed. Referred to pulmonary rehab Acute hypoxic events previously thought to be due to aspiration (4) Marijuana smoker: Plan: History of cocaine abuse Prior use of 3.5 g per weekend, No recent cocaine use per patient on HPI (5) Severe protein-calorie malnutrition: Plan: Poor p.o. intake, acutely worsened in the setting of COVID Patient with low p.o. intake at baseline, reports he is able to tolerate normal food textures well had a J-tube removed 1 year ago with concerns for aspiration/achalasia Boost supplements Phos replacement prescribed for today. Will repeat levels daily due to concern for refeeding syndrome with malnutrition - Vitamin D replacement started due to deficiency (6) Dysphagia: Plan: No swallowing difficulty in the last year, J-tube was removed more than a year ago per patient and family. No recurrent aspiration events CXR without evidence of aspiration pneumonia Pro-Murray negative on admission Follow closely, speech consulted - remains high aspiration risk, but patient accepting of this (7) Abnormal vaginal bleeding: Plan: Recently seen in ER 02/04/2022, hemoglobin stable, ultrasound as noted. 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 Surrogate decision maker would be her mother Admission and Anticipated Discharge Date Admission Date: February 05, 2022 Subjective Ongoing improvement in her appetite. No shortness of breath or chest pain at rest. Ongoing intermittent shortness of breath on exertion. Review of Systems Review of Systems: All systems reviewed & are unremarkable except as noted in Subjective Physical Exam Constitutional: well developed; + not well nourished and no acute distress Respiratory: normal respiratory effort; no respiratory distress Auscultation: lungs clear to auscultation bilaterally Cardiovascular: RRR, no murmur, no edema Gastrointestinal (Abdomen): normal bowel sounds, soft, nontender, no hepatosplenomegaly Inspection/Auscultation: normal bowel sounds Musculoskeletal: no cyanosis or clubbing, extremities motor strength 5/5 Neurologic: moves all extremities and awake; not confused Psychiatric: A+Ox3, euthymic affect Results & Data Results & Data ([facility]) Vital Signs (Past 12 Hours) Vital Signs Temp Pulse Pulse Resp BP Pulse Ox O2 Del Method 02/07/22 16:00 101 H 02/07/22 16:45 92 Nasal Cannula 02/07/22 15:40 36.8 C 98 H 20 124/83 90 Room Air 02/07/22 08:00 Room Air, Nasal Cannula 02/07/22 12:14 37.4 C 93 H 20 111/70 90 Oxymask 02/07/22 08:00 68 02/07/22 08:57 36.9 C 73 16 109/71 90 Room Air 02/07/22 07:47 74 16 117/76 93 Room Air O2 Flow Rate 02/07/22 16:00 02/07/22 16:45 2 02/07/22 15:40 02/07/22 08:00 02/07/22 12:14 2 02/07/22 08:00 02/07/22 08:57 02/07/22 07:47 PG Care Time/CCT Total # of Minutes Spent Total Time Spent with Patient: Total time spent is greater than 50% in coordination of care (as documented) at patient's floor/unit and/or counseling patient: Coding Level of Care Code 91444 Subseq Hosp Care Lvl 2 Diagnoses Acute respiratory failure with hypoxia J96.01 COVID-19 U07.1 COPD (chronic obstructive pulmonary disease) J44.9 Marijuana smoker F12.90 Severe protein-calorie malnutrition E43 Dysphagia R13.10 Abnormal vaginal bleeding N93.9
[2022-02-08] MEDS: ACETAMINOPHEN 65 ML IV PRN (04:44)
[2022-02-08 06:42] LABS: Basophils # (auto) 0.01 K/uL (0-0.2); Basophils % (auto) 0.1 %; Hematocrit (blood only) 26.8 % (34.1-44.9); Hemoglobin 8.2 g/dl (12.0-16.0); Immature Granulocytes # (auto) 0.03 K/uL (0.00-0.02); Immature Granulocytes % (auto) 0.4 %; Lymphocytes # (auto) 1.81 K/uL (1.2-3.4); Lymphocytes % (auto) 25.7 %; Mean Corpuscular Hemoglobin 23.8 pg (25.0-34.0); Mean Corpuscular Hgb Conc 30.6 g/dL (32.0-36.0); Mean Corpuscular Volume 77.7 fL (80.0-100.0); Mean Platelet Volume 10.8 fL (9.4-12.3); Monocytes # (auto) 0.69 K/uL (0.24-0.82); Monocytes % (auto) 9.8 %; Neutrophils # (auto) 4.49 K/uL (1.4-6.5); Platelet Count 205 K/uL (130-400); RDW Coefficient of Variation 16.4 % (11.5-14.5); RDW Standard Deviation 46.4 fL (36.4-46.3); Red Blood Count 3.45 M/uL (3.93-5.22); White Blood Count 7.03 K/ul (4.8-10.8)
[2022-02-08 07:43] LABS: Alanine Aminotransferase 10 U/L (7-52); Albumin Globulin Ratio 1.4 (0.9-2); Albumin Level 3.3 gm/dl (3.4-5.0); Alkaline Phosphatase 75 U/L (34-104); Anion Gap 6 (3-11); Aspartate Aminotransferase 14 U/L (13-39); BUN Creatinine Ratio 20.6 (10-20); Bilirubin,Total 0.4 mg/dl (0.2-1.0); Blood Urea Nitrogen 7 mg/dl (6-23); Calcium 8.4 mg/dl (8.5-10.1); Carbon Dioxide 28 mmol/L (21-32); Chloride 105 mmol/L (98-107); Creatinine Clr Calc Pharmacy 144.6 ml/min; Est GFR (African American) > 150.0 ml/min; Est GFR (Non-African American) 131.8 ml/min; Globulin 2.4 gm/dl (2.5-4.0); Glucose 81 mg/dl (70-99(Fasting)); Magnesium 1.6 mg/dl (1.7-2.4); Phosphorus 2.3 mg/dl (2.5-4.9); Potassium 3.5 mmol/L (3.5-5.1); Sodium 139 mmol/L (136-145); Total Protein 5.7 gm/dl (6.0-8.3)
[2022-02-08] MEDS: POT PHOSPHATE MONOBASIC W/ SOD TAB PO SCH ×3 (08:36→16:48)
[2022-02-08] MEDS: CHOLECALCIFEROL 1,000 UNITS 25 MCG TAB PO SCH (08:36)
[2022-02-08] MEDS: dexAMETHasone 6 MG in SYRINGE 0 ML IV SCH (08:36)
[2022-02-08] MEDS: THIAMINE HCL 100 MG in SYRINGE 9 ML IV SCH ×3 (08:36→21:04)
[2022-02-08] MEDS: UMECLIDINIUM/VILANTEROL 62.5/25MCG 7 PUFFS/INHALER INH SCH (08:37)
[2022-02-08] MEDS: MAGNESIUM SULFATE / D5W 1 GM/100 ML BAG IV SCH ×2 (10:27→12:35)
[2022-02-08] MEDS: PANTOprazole 40 MG TAB PO SCH (12:35)
[2022-02-08] MEDS: REMDESIVIR 100 MG in SODIUM CHLORIDE 0.9% 230 ML IV SCH (14:28)
--- NOTE | 2022-02-08 18:21 | Hospitalist Progress Note ---
Date of Service February 08, 2022 Assessment & Plan (1) Acute respiratory failure with hypoxia: Plan: Secondary to COVID-19 pneumonia although high risk of aspiration in addition On 3 L nasal cannula on admission History of esophageal dysmotility with aspiration events - EGD 03/2019: Normal stomach, normal duodenal bulb, no evidence of hernia/inflammation/stricture. PEGJ placed 04/27/2019 not interested in this again. Patient with high risk of aspiration as noted previously, no signs of aspiration pneumonia/superimposed pneumonia on CXR and is afebrile without leukocytosis. Will follow at this time, defer antibacterial coverage. (2) COVID-19: Plan: First day of symptoms approximately 02/03/2022 Continue Dexamethasone and remdesivir due to ongoing hypoxia CRP increased to 1.8 (3) COPD (chronic obstructive pulmonary disease): Plan: PFT 10/2019: Suboptimal test, could not hold for 6 seconds FVC 1.78 (53%), FEV1 1.39 (49%), FEV1/FVC 78 (94%), DLCO 15.5 (58%). No obstructive dysfunction, insignificant bronchodilator response, low normal TLC, moderate decrease in DLCO which corrects for VA, nonspecific air trapping, improvement compared to 05/2019 exam Pulmonary 11/2019: [id number] smoking history quit 03/2019. Normal alpha 1 antitrypsin level with PI*MM phenotype. Continue Anoro daily, albuterol as ne eded. Referred to pulmonary rehab Acute hypoxic events previously thought to be due to aspiration (4) Marijuana smoker: Plan: History of cocaine abuse Prior use of 3.5 g per weekend, No recent cocaine use per patient on HPI (5) Severe protein-calorie malnutrition: Plan: Poor p.o. intake, acutely worsened in the setting of COVID Patient with low p.o. intake at baseline, reports he is able to tolerate normal food textures well had a J-tube removed 1 year ago with concerns for aspiration/achalasia Boost supplements Will stop oral supplementation of phosphorus as patient is having significant struggles swallowing this. Will replace with IV as necessary - Mg level 1.6 - Mg sulfate 2g IV replacement today - Vitamin D replacement started due to deficiency (6) Dysphagia: Plan: No swallowing difficulty in the last year, J-tube was removed more than a year ago per patient and family. No recurrent aspiration events CXR without evidence of aspiration pneumonia Pro-Murray negative on admission Follow closely, speech consulted - remains high aspiration risk, but patient accepting of this (7) Abnormal vaginal bleeding: Plan: Recently seen in ER 02/04/2022, hemoglobin stable, ultrasound as noted. 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 Will continue to trend. Suspect iron def. with recent vaginal bleeding. Iron panel with AM labs Fecal occult blood ordered Plan DVT prophylaxis: SCDs, avoiding lovenox due to downtrending hemoglobin Diet: Regular easy to chew, known aspiration risk Disposition: Med/telemetry for tachycardia, downgrade if doing well CODE STATUS: Full code discussed with patient. Surrogate decision maker would be her mother Admission and Anticipated Discharge Date Admission Date: February 05, 2022 Subjective No significant change to her shortness of breath. Good appetite though. Anemia on labs - no vaginal bleeding noted by patient, no melena or bright red blood in stool. No lightheadedness or dizziness on standing. Review of Systems Review of Systems: All systems reviewed & are unremarkable except as noted in Subjective Physical Exam Constitutional: well developed; + not well nourished and no acute distress Respiratory: normal respiratory effort; no respiratory distress Auscultation: lungs clear to auscultation bilaterally Cardiovascular: RRR, no murmur, no edema Gastrointestinal (Abdomen): normal bowel sounds, soft, nontender, no hepatosplenomegaly Inspection/Auscultation: normal bowel sounds Musculoskeletal: no cyanosis or clubbing, extremities motor strength 5/5 Neurologic: moves all extremities and awake; not confused Psychiatric: A+Ox3, euthymic affect Results & Data Results & Data ([facility]) Vital Signs (Past 12 Hours) Vital Signs Temp Pulse Pulse Resp BP Pulse Ox Pulse Ox 02/08/22 15:15 81 02/08/22 15:00 95 02/08/22 14:55 95 02/08/22 12:11 36.4 C L 66 16 103/66 95 02/08/22 08:36 02/08/22 08:42 36.5 C 65 16 102/67 90 02/08/22 07:07 52 L Pulse Ox O2 Del Method O2 Flow Rate O2 Flow Rate O2 Flow Rate 02/08/22 15:15 02/08/22 15:00 02/08/22 14:55 95 2 2 02/08/22 12:11 Oxymask 2 02/08/22 08:36 Oxymask 2 02/08/22 08:42 Oxymask 2 02/08/22 07:07 PG Care Time/CCT Total # of Minutes Spent Total Time Spent with Patient: Total time spent is greater than 50% in coordination of care (as documented) at patient's floor/unit and/or counseling patient: Coding Level of Care Code 21722 Subseq Hosp Care Lvl 2 Diagnoses Acute respiratory failure with hypoxia J96.01 COVID-19 U07.1 COPD (chronic obstructive pulmonary disease) J44.9 Marijuana smoker F12.90 Severe protein-calorie malnutrition E43 Dysphagia R13.10 Abnormal vaginal bleeding N93.9 Microcytic anemia D50.9
[2022-02-09 06:50] LABS: Basophils # (auto) 0.01 K/uL (0-0.2); Basophils % (auto) 0.2 %; Eosinophils # (auto) 0.02 K/uL (0-0.50); Eosinophils % (auto) 0.3 %; Hematocrit (blood only) 27.6 % (34.1-44.9); Hemoglobin 8.4 g/dl (12.0-16.0); Immature Granulocytes # (auto) 0.03 K/uL (0.00-0.02); Immature Granulocytes % (auto) 0.5 %; Lymphocytes # (auto) 1.94 K/uL (1.2-3.4); Lymphocytes % (auto) 30.1 %; Mean Corpuscular Hemoglobin 23.5 pg (25.0-34.0); Mean Corpuscular Hgb Conc 30.4 g/dL (32.0-36.0); Mean Corpuscular Volume 77.1 fL (80.0-100.0); Mean Platelet Volume 10.8 fL (9.4-12.3); Monocytes # (auto) 0.66 K/uL (0.24-0.82); Monocytes % (auto) 10.2 %; Neutrophils # (auto) 3.78 K/uL (1.4-6.5); Neutrophils % (auto) 58.7 %; Platelet Count 253 K/uL (130-400); RDW Coefficient of Variation 16.4 % (11.5-14.5); RDW Standard Deviation 45.9 fL (36.4-46.3); Red Blood Count 3.58 M/uL (3.93-5.22); White Blood Count 6.44 K/ul (4.8-10.8)
[2022-02-09 07:14] LABS: Iron 19 mcg/dl (35-150); Total Iron Binding Cap Calc 346 mcg/dl (250-450); Transferrin (FE) Percent Satur 5 % (15-50); Unsaturated Iron Binding Cap 327 mcg/dl (155-355)
[2022-02-09 07:26] LABS: Alanine Aminotransferase 10 U/L (7-52); Albumin Globulin Ratio 1.2 (0.9-2); Albumin Level 3.2 gm/dl (3.4-5.0); Alkaline Phosphatase 78 U/L (34-104); Anion Gap 4 (3-11); Aspartate Aminotransferase 11 U/L (13-39); BUN Creatinine Ratio 26.5 (10-20); Bilirubin,Total 0.3 mg/dl (0.2-1.0); Blood Urea Nitrogen 9 mg/dl (6-23); Carbon Dioxide 29 mmol/L (21-32); Chloride 105 mmol/L (98-107); Creatinine Clr Calc Pharmacy 145.2 ml/min; Est GFR (African American) > 150.0 ml/min; Est GFR (Non-African American) 131.8 ml/min; Globulin 2.6 gm/dl (2.5-4.0); Glucose 86 mg/dl (70-99(Fasting)); Phosphorus 2.2 mg/dl (2.5-4.9); Potassium 4.2 mmol/L (3.5-5.1); Sodium 138 mmol/L (136-145); Total Protein 5.8 gm/dl (6.0-8.3)
[2022-02-09] MEDS: UMECLIDINIUM/VILANTEROL 62.5/25MCG 7 PUFFS/INHALER INH SCH (08:29)
[2022-02-09] MEDS: PANTOprazole 40 MG TAB PO SCH (08:30)
[2022-02-09] MEDS: CHOLECALCIFEROL 1,000 UNITS 25 MCG TAB PO SCH (08:30)
[2022-02-09] MEDS: dexAMETHasone 6 MG in SYRINGE 0 ML IV SCH (08:30)
[2022-02-09] MEDS: THIAMINE HCL 100 MG in SYRINGE 9 ML IV SCH (08:30)
[2022-02-09] MEDS ORDERED: SODIUM PHOSPHATE 3 MMOL/1 ML INFUSION IV STA (09:00)
[2022-02-09] MEDS ORDERED: SODIUM PHOSPHATE 9 MMOL in SODIUM CHLORIDE 0.9% 250 ML IV ONE (09:45)
--- NOTE | 2022-02-09 10:09 | Hospitalist Progress Note ---
Date of Service February 09, 2022 Assessment & Plan (1) Acute respiratory failure with hypoxia: Plan: Secondary to COVID-19 pneumonia although high risk of aspiration in addition On 3 L nasal cannula on admission History of esophageal dysmotility with aspiration events - EGD 03/2019: Normal stomach, normal duodenal bulb, no evidence of hernia/inflammation/stricture. PEGJ placed 04/27/2019 not interested in this again. Patient with high risk of aspiration as noted previously, no signs of aspiration pneumonia/superimposed pneumonia on CXR and is afebrile without leukocytosis. Will follow at this time, defer antibacterial coverage. (2) COVID-19: Plan: First day of symptoms approximately 02/03/2022 Continue Dexamethasone and remdesivir (now completed) due to ongoing hypoxia CRP increased to 1.8 (3) COPD (chronic obstructive pulmonary disease): Plan: PFT 10/2019: Suboptimal test, could not hold for 6 seconds FVC 1.78 (53%), FEV1 1.39 (49%), FEV1/FVC 78 (94%), DLCO 15.5 (58%). No obstructive dysfunction, insignificant bronchodilator response, low normal TLC, moderate decrease in DLCO which corrects for VA, nonspecific air trapping, improvement compared to 05/2019 exam Pulmonary 11/2019: [id number] smoking history quit 03/2019. Normal alpha 1 antitrypsin level with PI*MM phenotype. Continue Anoro daily, albuterol as needed. Referred to pulmonary rehab Acute hypoxic events previously thought to be due to aspiration (4) Marijuana smoker: Plan: History of cocaine abuse Prior use of 3.5 g per weekend, No recent cocaine use per patient on HPI (5) Severe protein-calorie malnutrition: Plan: Poor p.o. intake, acutely worsened in the setting of COVID Patient with low p.o. intake at baseline, reports he is able to tolerate normal food textures well had a J-tube removed 1 year ago with concerns for aspiration/achalasia Boost supplements Will stop oral supplementation of phosphorus as patient is having significant struggles swallowing this. Will replace with IV as necessary - Mg level replaced - Vitamin D replacement started due to deficiency (6) Dysphagia: Plan: No swallowing difficulty in the last year, J-tube was removed more than a year ago per patient and family. No recurrent aspiration events CXR without evidence of aspiration pneumonia Pro-Murray negative on admission Follow closely, speech consulted - remains high aspiration risk, but patient accepting of this (7) Abnormal vaginal bleeding: Plan: Recently seen in ER 02/04/2022, hemoglobin stable, ultrasound as noted. 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 Will continue to trend. Suspect iron def. with recent vaginal bleeding. Transferrin sats 5% - deficit approx Fecal occult blood pending Plan DVT prophylaxis: SCDs, avoiding lovenox due to downtrending hemoglobin Diet: Regular easy to chew, known aspiration risk Disposition: Med/telemetry for tachycardia, downgrade if doing well CODE STATUS: Full code discussed with patient. Surrogate decision maker would be her mother Admission and Anticipated Discharge Date Admission Date: February 05, 2022 Subjective Reports only a small amount of vaginal bleeding. No melena or bright red blood in stool. Some mild dizziness on standing. Telemetry - occasional ST in 130s but consistently in 110s. Good appetite. Discussed iron deficiency anemia and agreed to iron transfusion tomorrow after remdesivir dose completed. Review of Systems Review of Systems: All systems reviewed & are unremarkable except as noted in Subjective Physical Exam Constitutional: well developed; + not well nourished and no acute distress Respiratory: normal respiratory effort; no respiratory distress Auscultation: lungs clear to auscultation bilaterally Cardiovascular: RRR, no murmur, no edema Gastrointestinal (Abdomen): normal bowel sounds, soft, nontender, no hepatosplenomegaly Musculoskeletal: no cyanosis or clubbing, extremities motor strength 5/5 Neurologic: moves all extremities and awake; not confused Psychiatric: A+Ox3, euthymic affect Results & Data Results & Data ([facility]) Vital Signs (Past 12 Hours) Vital Signs Temp Pulse Pulse Resp BP Pulse Ox O2 Del Method 02/09/22 08:30 Oxymask 02/09/22 07:52 48 L 02/09/22 07:29 36.5 C 55 L 18 100/71 98 Oxymask 02/09/22 03:21 37 C 74 18 101/66 96 Oxymask 02/08/22 23:57 43 L 02/08/22 23:18 37.1 C 66 18 109/64 96 Oxymask 02/08/22 23:03 Oxymask O2 Flow Rate 02/09/22 08:30 2 02/09/22 07:52 02/09/22 07:29 2 02/09/22 03:21 2 02/08/22 23:57 02/08/22 23:18 2 02/08/22 23:03 PG Care Time/CCT Total # of Minutes Spent Total Time Spent with Patient: Total time spent is greater than 50% in coordination of care (as documented) at patient's floor/unit and/or counseling patient: Coding Level of Care Code 49693 Subseq Hosp Care Lvl 2 Diagnoses Acute respiratory failure with hypoxia J96.01 COVID-19 U07.1 COPD (chronic obstructive pulmonary disease) J44.9 Marijuana smoker F12.90 Severe protein-calorie malnutrition E43 Dysphagia R13.10 Abnormal vaginal bleeding N93.9 Microcytic anemia D50.9
[2022-02-09] MEDS: REMDESIVIR 100 MG in SODIUM CHLORIDE 0.9% 230 ML IV SCH (13:05)
[2022-02-10 06:21] LABS: Basophils # (auto) 0.01 K/uL (0-0.2); Basophils % (auto) 0.1 %; Eosinophils # (auto) 0.02 K/uL (0-0.50); Eosinophils % (auto) 0.3 %; Hematocrit (blood only) 28.5 % (34.1-44.9); Hemoglobin 8.7 g/dl (12.0-16.0); Immature Granulocytes # (auto) 0.07 K/uL (0.00-0.02); Immature Granulocytes % (auto) 0.9 %; Lymphocytes # (auto) 2.41 K/uL (1.2-3.4); Lymphocytes % (auto) 32.6 %; Mean Corpuscular Hemoglobin 23.5 pg (25.0-34.0); Mean Corpuscular Hgb Conc 30.5 g/dL (32.0-36.0); Mean Corpuscular Volume 76.8 fL (80.0-100.0); Mean Platelet Volume 10.8 fL (9.4-12.3); Monocytes % (auto) 9.5 %; Neutrophils # (auto) 4.18 K/uL (1.4-6.5); Neutrophils % (auto) 56.6 %; Platelet Count 321 K/uL (130-400); RDW Coefficient of Variation 16.4 % (11.5-14.5); RDW Standard Deviation 45.4 fL (36.4-46.3); Red Blood Count 3.71 M/uL (3.93-5.22); White Blood Count 7.39 K/ul (4.8-10.8)
[2022-02-10 06:47] LABS: Albumin Globulin Ratio 1.4 (0.9-2); Albumin Level 3.4 gm/dl (3.4-5.0); BUN Creatinine Ratio 32.6 (10-20); Bilirubin,Total 0.3 mg/dl (0.2-1.0); C Reactive Protein 1.1 mg/dl (0-0.5); Calcium 9.3 mg/dl (8.5-10.1); Creatinine Clr Calc Pharmacy 115.4 ml/min; Est GFR (African American) 141.4 ml/min; Globulin 2.5 gm/dl (2.5-4.0); Magnesium 1.7 mg/dl (1.7-2.4); Phosphorus 2.7 mg/dl (2.5-4.9); Potassium 4.2 mmol/L (3.5-5.1); Total Protein 5.9 gm/dl (6.0-8.3)
[2022-02-10] MEDS: THIAMINE HCL 100 MG TAB PO SCH (08:23)
[2022-02-10] MEDS: PANTOprazole 40 MG TAB PO SCH (08:23)
[2022-02-10] MEDS: CHOLECALCIFEROL 1,000 UNITS 25 MCG TAB PO SCH (08:23)
[2022-02-10] MEDS: UMECLIDINIUM/VILANTEROL 62.5/25MCG 7 PUFFS/INHALER INH SCH (08:23)
[2022-02-10] MEDS: dexAMETHasone 6 MG in SYRINGE 0 ML IV SCH (08:23)
[2022-02-10] MEDS ORDERED: MAGNESIUM SULFATE / D5W 1 GM/100 ML BAG IV ONE (08:57)
[2022-02-10] MEDS ORDERED: IRON SUCROSE 400 MG in SODIUM CHLORIDE 0.9% 250 ML IV ONE (09:00)
--- NOTE | 2022-02-10 12:12 | Electrocardiogram Report ---
Test Reason : Blood Pressure : / mmHG Vent. Rate : 079 BPM Atrial Rate : 079 BPM P-R Int : 216 ms QRS Dur : 134 ms QT Int : 396 ms P-R-T Axes : 076 -42 094 degrees QTc Int : 454 ms Sinus rhythm with 1st degree A-V block Left axis deviation Left bundle branch block Abnormal ECG When compared with ECG of 05-FEB-2022 10:23, MD interval has increased HR has decreased by 36 bpm Confirmed by Randall Benavides ([id number]) on 02/10/2022 12:12:25 PM Referred By: REFERRED SELF Confirmed By:Randall Benavides
--- NOTE | 2022-02-10 17:38 | Hospitalist Progress Note ---
Date of Service February 10, 2022 Assessment & Plan (1) Acute respiratory failure with hypoxia: Plan: Secondary to COVID-19 pneumonia although high risk of aspiration in addition On 3 L nasal cannula on admission History of esophageal dysmotility with aspiration events - EGD 03/2019: Normal stomach, normal duodenal bulb, no evidence of hernia/inflammation/stricture. PEGJ placed 04/27/2019 not interested in this again. Patient with high risk of aspiration as noted previously, no signs of aspiration pneumonia/superimposed pneumonia on CXR and is afebrile without leukocytosis. Will follow at this time, defer antibacterial coverage. 2 step, will need 1LPM O2 on exertion. Unable to arrange this for patient today. If can be arranged tomorrow can likely be discharged home (2) COVID-19: Plan: First day of symptoms approximately 02/03/2022 Continue Dexamethasone and remdesivir (now completed) due to ongoing hypoxia CRP increased to 1.8 (3) COPD (chronic obstructive pulmonary disease): Plan: PFT 10/2019: Suboptimal test, could not hold for 6 seconds FVC 1.78 (53%), FEV1 1.39 (49%), FEV1/FVC 78 (94%), DLCO 15.5 (58%). No obstructive dysfunction, insignificant bronchodilator response, low normal TLC, moderate decrease in DLCO which corrects for VA, nonspecific air trapping, improvement compared to 05/2019 exam Pulmonary 11/2019: [id number] smoking history quit 03/2019. Normal alpha 1 antitrypsin level with PI*MM phenotype. Continue Anoro daily, albuterol as needed. Referred to pulmonary rehab Acute hypoxic events previously thought to be due to aspiration (4) Marijuana smoker: Plan: History of cocaine abuse Prior use of 3.5 g per weekend, No recent cocaine use per patient on HPI (5) Severe protein-calorie malnutrition: Plan: Poor p.o. intake, acutely worsened in the setting of COVID Patient with low p.o. intake at baseline, reports he is able to tolerate normal food textures well had a J-tube removed 1 year ago with concerns for aspiration/achalasia Boost supplements Stopped oral supplementation of phosphorus as patient is having significant struggles swallowing this. Phosphorus level now normal - Mg level lkow normal - will give addition Mg sulfate 1g IV today - Vitamin D replacement started due to deficiency (6) Dysphagia: Plan: No swallowing difficulty in the last year, J-tube was removed more than a year ago per patient and family. No recurrent aspiration events CXR without evidence of aspiration pneumonia Pro-Murray negative on admission Follow closely, speech consulted - remains high aspiration risk, but patient accepting of this (7) Abnormal vaginal bleeding: Plan: Recently seen in ER 02/04/2022, hemoglobin stable, ultrasound as noted. Outpatient TAILER OFF follow-up, trend CBC daily, hemoglobin currently stable Admitting hemoglobin 11.8 Lovenox deferred given history of recent bleeding and downtrending hemoglobin (8) Microcytic anemia: Plan: Hemoglobin 11.8 -> 8.2. Now back up to 8.7 without intervention. Will need closely followed as outpatient. Suspect iron def. with recent vaginal bleeding. Transferrin sats 5% - deficit approx 400 mg. 400mg Venofer given today. Fecal occult blood negative Plan DVT prophylaxis: SCDs, avoiding lovenox due to anemia Diet: Regular easy to chew, known aspiration risk Disposition: Med/telemetry for tachycardia, downgrade if doing well CODE STATUS: Full code discussed with patient. Surrogate decision maker would be her mother Admission and Anticipated Discharge Date Admission Date: February 05, 2022 Subjective Patient reports ongoing mild shortness of breath on exertion. Otherwise keen for discharge. No pain. Eating and drinking well. Review of Systems Review of Systems: All systems reviewed & are unremarkable except as noted in Subjective Physical Exam Constitutional: well developed and + cachectic; + not well nourished and no acute distress Respiratory: normal respiratory effort; no respiratory distress Auscultation: lungs clear to auscultation bilaterally Cardiovascular: RRR, no murmur, no edema Gastrointestinal (Abdomen): normal bowel sounds, soft, nontender, no hepatosplenomegaly Musculoskeletal: no cyanosis or clubbing, extremities motor strength 5/5 Neurologic: moves all extremities and awake; not confused Psychiatric: A+Ox3, euthymic affect Results & Data Results & Data ([facility]) Vital Signs (Past 12 Hours) Vital Signs Temp Pulse Pulse Pulse Pulse Pulse Pulse 02/10/22 16:37 86 97 H 86 84 02/10/22 16:11 36.4 C L 75 02/10/22 15:56 76 02/10/22 12:07 36.6 C 82 02/10/22 10:41 89 02/10/22 08:20 02/10/22 07:30 49 L 02/10/22 06:23 37.1 C 53 L Resp Resp Resp Resp Resp BP Pulse Ox 02/10/22 16:37 16 16 16 16 02/10/22 16:11 18 100/66 91 02/10/22 15:56 02/10/22 12:07 20 116/75 91 02/10/22 10:41 18 112/70 92 02/10/22 08:20 02/10/22 07:30 02/10/22 06:23 16 108/70 96 Pulse Ox Pulse Ox Pulse Ox Pulse Ox O2 Del Method O2 Flow Rate 02/10/22 16:37 91 87 L 91 91 1 02/10/22 16:11 Room Air 02/10/22 15:56 02/10/22 12:07 Room Air 02/10/22 10:41 Room Air 02/10/22 08:20 Room Air 02/10/22 07:30 02/10/22 06:23 Room Air PG Care Time/CCT Total # of Minutes Spent Total Time Spent with Patient: Total time spent is greater than 50% in coordination of care (as documented) at patient's floor/unit and/or counseling patient: Coding Level of Care Code 88633 Subseq Hosp Care Lvl 2 Diagnoses Acute respiratory failure with hypoxia J96.01 COVID-19 U07.1 COPD (chronic obstructive pulmonary disease) J44.9 Marijuana smoker F12.90 Severe protein-calorie malnutrition E43 Dysphagia R13.10 Abnormal vaginal bleeding N93.9 Microcytic anemia D50.9
[2022-02-11 07:53] LABS: Albumin Globulin Ratio 1.3 (0.9-2); Albumin Level 3.4 gm/dl (3.4-5.0); BUN Creatinine Ratio 45.9 (10-20); Bilirubin,Total 0.2 mg/dl (0.2-1.0); Calcium 9.7 mg/dl (8.5-10.1); Creatinine Clr Calc Pharmacy 133.5 ml/min; Est GFR (African American) 148.5 ml/min; Est GFR (Non-African American) 128.2 ml/min; Globulin 2.7 gm/dl (2.5-4.0); Phosphorus 2.6 mg/dl (2.5-4.9); Potassium 4.3 mmol/L (3.5-5.1); Total Protein 6.1 gm/dl (6.0-8.3)
[2022-02-11] MEDS: CHOLECALCIFEROL 1,000 UNITS 25 MCG TAB PO SCH (08:20)
[2022-02-11] MEDS: PANTOprazole 40 MG TAB PO SCH (08:20)
[2022-02-11] MEDS: THIAMINE HCL 100 MG TAB PO SCH (08:20)
[2022-02-11] MEDS: dexAMETHasone 6 MG in SYRINGE 0 ML IV SCH (08:21)
[2022-02-11] MEDS: UMECLIDINIUM/VILANTEROL 62.5/25MCG 7 PUFFS/INHALER INH SCH (08:21)
--- NOTE | 2022-02-11 13:29 | Discharge Summary ---
Date of Service February 11, 2022 Admission HPI Per Admitting Provider Loulou Pryor is a 46-year-old female who presents with acute hypoxemic respiratory failure 2/2 COVID-pneumonia. Past medical history of arthritis, COPD with alpha antitrypsin PI*MM, depression with anxiety, constipation, vaginal bleeding. Recently discharged from the ER 02/04/2022 after presenting with abnormal vaginal bleeding for a week longer than normal menstrual cycle without being particularly painful or heavy. Was noted to have a 5.6 cm right ovarian cyst with benign appearance but increased in size compared to prior, mural fibroids, and endometrial thickness of 9 mm. Mild anemia, was discharged to outpatient follow-up with [facility]. Stable at discharge at that time. Reports symptoms of shortness of breath which began 3 days ago, worsened acutely this morning which presents her to come into the ER. COVID-positive. Has had a cough for 3 days, clear white productive sputum a little bit at a time. Reports normally does have a cough due to a past history of smoking, none since 2019. Does endorse smoking marijuana 2-3 times a week for pain. Denies other drug use including any recent illicit drug use/cocaine use. Denies fevers. Endorses has felt warm then chilly in the last day or 2, did have some chills/sweats this morning. No chest pain/chest pressure. Did receive the COVID vaccination x2 on date as noted below. Denies chest pain, chest pressure, palpitations. Feels a little lightheaded and tired. No nausea/vomiting/diarrhea, but appetite has been extremely poor with minimal intake for 3 days. Note she does have a history of difficulty swallowing/aspiration/poor intake for which she had a J- tube, this was removed over a year ago and she has had no difficulty eating/drinking normal foods in the last year with no aspiration events. She is seen at the bedside with her mother and boyfriend who confirm this.Medical history reviewed, surgical history reviewed, social history reviewed.Patient has not followed up recently with a doctor, notes she was on a daily inhaler and albuterol as needed, has not followed up since 2019 and has not refilled these medications. Reports that she is still supposed to take a daily inhaler, just has not been seen for follow-up and that prescription . Pfizer 12/2020, Pfizer x2 01/2021 Principal Diagnosis acute respiratory failure covid infection copd malnutrition anemia Discharge Exam The patient appeared to be malnourished with moderate to severe protein malnutrition Vital signs as documented. Lungs are clear to auscultation and appear unlabored Cardiac exam, Rhythm is regular.. No murmurs, rubs or gallops. Abdominal exam reveals normal bowel sounds, soft non tender, no masses Extremities are nonedematous and both pedal pulses are normal. Neurologic exam is alert and oriented, no focal loss of strength or sensation Discharge Data Allergies Allergy/AdvReac Type Severity Reaction Status Date / Time No Known Allergies Allergy Verified 02/05/22 10:51 Consultations 02/05/22 12:47 ED Decision to Admit Stat Procedures Performed Patient did have a swallowing study during her hospital stabilization which did confirm that she continues to aspirate. At that time she was recommended to have n.p.o. status and consideration for J-tube placement which she refused at that time she was willing to accept the risks of aspiration Patient also did receive a dose of Venna fair for her iron deficiency anemia Ordered Studies 02/06/22 14:00 Fluoro video [FL video swallow] Routine Hospital Course (1) Acute respiratory failure with hypoxia: Secondary to COVID-19 pneumonia although high risk of aspiration in addition Patient requires 1 L nasal cannula with ambulation Patient is recovering from her COVID pneumonia infection History of esophageal dysmotility with aspiration events - EGD 03/2019: Normal stomach, normal duodenal bulb, no evidence of hernia/inflammation/stricture. PEGJ placed 04/27/2019 not interested in this again. Patient with high risk of aspiration as noted previously, no signs of aspiration pneumonia/superimposed pneumonia on CXR and is afebrile without leukocytosis. Patient was recommended n.p.o. status she refused she voiced an understanding of the risks of aspiration and restore health from pneumonia and other infections (2) COVID-19: First day of symptoms approximately 02/03/2022 Continue Dexamethasone and remdesivir (now completed) patient CRP reduced the patient is recovering from her infection (3) COPD (chronic obstructive pulmonary disease): PFT 10/2019: Suboptimal test, could not hold for 6 seconds FVC 1.78 (53%), FEV1 1.39 (49%), FEV1/FVC 78 (94%), DLCO 15.5 (58%). No obstructive dysfunction, insignificant bronchodilator response, low normal TLC, moderate decrease in DLCO which corrects for VA, nonspecific air trapping, improvement compared to 05/2019 exam Pulmonary 11/2019: [id number] smoking history quit 03/2019. Normal alpha 1 antitrypsin level with PI*MM phenotype. Continue Anoro daily, albuterol as needed. Consider referral to pulmonary rehab by primary care Acute hypoxic events previously thought to be due to aspiration (4) Marijuana smoker: History of cocaine abuse Prior use of 3.5 g per weekend, No recent cocaine use per patient on HPI (5) Severe protein-calorie malnutrition: Poor p.o. intake, acutely worsened in the setting of COVID Patient with low p.o. intake at baseline, reports he is able to tolerate normal food textures well had a J-tube removed 1 year ago with concerns for aspiration/achalasia Boost supplements Recommend multiple vitamin with iron supplementation after discharge (6) Dysphagia: No swallowing difficulty in the last year, J-tube was removed more than a year ago per patient and family. Repeat swallowing study continues to be abnormal remains high risk of aspiration patient willing to accept the risks CXR without evidence of aspiration pneumonia Pro-Murray negative on admission (7) Abnormal vaginal bleeding: Recently seen in ER 02/04/2022, hemoglobin stable, ultrasound as noted. Outpatient [facility] follow-up, trend CBC daily, hemoglobin currently stable Admitting hemoglobin 11.8 Iron confirmed to be low (8) Microcytic anemia: Hemoglobin 11.8 -> 8.2. Now back up to 8.7 without intervention. Will need closely followed as outpatient. Suspect iron def. with recent vaginal bleeding. Transferrin sats 5% - deficit approx 400 mg. 400mg Venofer given during hospital stay Fecal occult blood negative Plan CODE STATUS: Full code discussed with patient. Surrogate decision maker would be her mother Total Time Total Time Spent Total Time Spent (In Minutes): It required greater than 30 minutes to prepare this patient for discharge Discharge Plan Discharge Items Patient Disposition: Home - Self-Care [facility] Discharge Diagnosis: acute respiratory failure covid infection copd malnutrition anemia Activity: Resume your previous activity Non-emergency contact: Primary Care Provider and Gold Frame Assembler Call non-emergency contact if: your symptoms worsen Follow-up/Referrals: Sandy Sandra PA-C [Physician Wood Router] - 02/14/22 11:00 am (THIS WILL BE FOR YOUR DISCHARGE FOLLOW-UP APPOINTMENT.) Deonte Cortés DO [Physician] - 02/19/22 10:00 am (THIS APPOINTMENT WILL BE TO ESTABLISH YOU WITH A PRIMARY CARE PROVIDER.) Diet: Regular Diet Comment: you did elmo some swallowing issues on your swallowing study Addtl Attending Provider Instructions: Glad you are recovering well from your COVID infection with recommended that you remain in home isolation until February 13, 2022 You have been diagnosed with covid infection, it would be recommended that you quarantine yourself for 10 days from your first test or first symptoms, and if at the 10th day you have no symptoms the you can come off quarantine but use common sense precautions. Quarantine means attempting to stay away from people who have not had an active covid infection in the past, and if you have to be around others to wear a mask even if you are indoors, do not share a room to sleep in with others until you are out of quarantine. If you still have symptoms at the 10th day, continue to quarantine until you are symptom free for 48 hours You did have a abnormal swallowing test performed while you are sick as an inpatient, recommendation to have both ""slippery" and easy to chew diet with thin liquids. Good mouth care is strongly recommended if issues with swallowing to worsen recommendations at the time of your swallowing study were to have alternative feeding arranged with feeding tube however this was presented he did not wish to pursue this, and if this does worsen as an outpatient please talk to your primary care will be present to the hospital for further discussions regarding alternative means of feeding You have been in the ER due to abnormal vaginal bleeding and strongly recommend that you follow-up with A AND P TECHNICIAN after discharge You continue to have anemia I do have some low iron but normal B12 would be recommended that you have a multiple vitamin with iron to supplement your diet, yoyu did have iron given IV while yoyu were here continue to use oxygen at home while you recover, and your primary care can help test you to determine when it will be time to stop it. Pending Studies at Discharge: No Stand-Alone Forms: My Porch, Smoking Cessation Medications and DC Order Prescriptions: New (DME) Oxygen Home Liters Per Minute See Rx Instructions .ROUTE Qty: 2 0RF Rx Instructions: As directed Continued albuterol sulfate 90 mcg/actuation HFA aerosol inhaler 2 puff Inhalation QID PRN (Reason: Shortness Of Breath) Qty: 18 1RF Anoro Ellipta 62.5-25 mcg/actuation blister with device 1 inh inhalation DAILY Qty: 60 1RF Discharge Orders: Discharge Order (Routine); Ordered 02/11/22 Ordered By: Harjit Maurice Admission Data Admit Date/Time: 02/05/22 13:19 Attending Provider: Harjit Maurice Admit Provider: Gualberto Huntley Primary Care Provider: PCP,NO Other Providers: Gualberto Huntley Coding Level of Care Code D/C DAY MANAGEMENT >30 MINS Diagnoses Acute respiratory failure with hypoxia J96.01 COVID-19 U07.1 COPD (chronic obstructive pulmonary disease) J44.9 Marijuana smoker F12.90 Severe protein-calorie malnutrition E43 Dysphagia R13.10 Abnormal vaginal bleeding N93.9 Microcytic anemia D50.9
== END 2022-02-11 14:55 | disposition home or self-care (01) | DRG 177 ==
LOC: ED 10:13 → 2W 13:19 → SUATTDRO 13:19 → 2W 14:14
DX: J96.02 Acute respiratory failure with hypercapnia; K22.4 Dyskinesia of esophagus; Z68.1 Body mass index [BMI] 19.9 or less, adult; J96.01 Acute respiratory failure with hypoxia; E43 Unspecified severe protein-calorie malnutrition; D64.9 Anemia, unspecified; N83.201 Unspecified ovarian cyst, right side; J44.9 Chronic obstructive pulmonary disease, unspecified; J12.82 Pneumonia due to coronavirus disease 2019; U07.1 COVID-19; F14.11 Cocaine abuse, in remission; E86.0 Dehydration; Z87.891 Personal history of nicotine dependence; F12.90 Cannabis use, unspecified, uncomplicated; D25.9 Leiomyoma of uterus, unspecified

== ENCOUNTER 2023-03-19 08:55 | Inpatient (IN) ==
[2023-03-19] MEDS ORDERED: SODIUM CHLORIDE 0.9% 500 ML IV ONE (09:21)
[2023-03-19] MEDS ORDERED: ALBUT/IPRATROP 3MG/0.5MG NEB 3 ML VIAL NEB ONE (09:22)
[2023-03-19] MEDS ORDERED: methylPREDNISolone 125 MG/2 ML VIAL IV STA (09:22)
--- NOTE | 2023-03-19 09:26 | Emergency Department Note ---
History of Present Illness General Chief complaint: Shortness of Breath/Dyspnea Stated complaint: SOB Time Seen by Provider: 03/19/23 09:15 Source: patient, family ( who is at the bedside), RN notes reviewed and old records reviewed (I have reviewed an office visit from 01/05/2023 when the patient was there for conjunctivitis. Is also reviewed a discharge summary from 2019 when she had COPD) Mode of arrival: ambulatory Limitations: no limitations History of Present Illness This patient a 47-year-old female who has a history of COPD, comes in after having cough and shortness of breath for about a week. She was seen in triage was noted to be hypoxemic and was placed in room 81 the nurse came and got me to see her when I went and they restarted a line on her and got labs. Her lungs actually sound clear she has a cough that is been erratically. She has had a slight fever she is been using inhalers the rescue inhaler helps some. No fall or trauma she has been on a feeding tube in the past but has not had 1 for a year and looking through her old records she there was concern that she may have aspiration in the past denies chest pain to me denies abdominal pain. Home Medications Medication Instructions Recorded Confirmed Type albuterol sulfate 90 mcg/actuation 2 puff inhalation QID PRN 11/28/22 03/19/23 Rx aerosol inhaler Shortness Of Breath #18 grams umeclidinium 62.5 mcg-vilanterol 1 inh inhalation DAILY #60 ea 11/28/22 03/19/23 Rx 25 mcg/actuation powdr for inhalation (Anoro Ellipta) Allergies Allergy/AdvReac Type Severity Reaction Status Date / Time No Known Allergies Allergy Verified 03/19/23 12:09 Past Med/Surg History Medical History (Updated 03/19/23 @ 14:47 by Jose Amaya MD) Acute respiratory failure with hypoxia COVID-19 Ovarian cyst Poor dentition COPD (chronic obstructive pulmonary disease) Difficulty swallowing Difficulty chewing Depression Anxiety Tobacco abuse Marijuana smoker Constipation Arthritis Scoliosis Surgical History History of esophagogastroduodenoscopy (EGD) Family History Other Family history non-contributory Social History Smoking Status: Current every day smoker Tobacco Type: Cigarettes Cigarettes Per Day: 1 PACK/DAY; Second Hand Exposure: Yes; Do You Dip or Chew Tobacco: No; Hx Alcohol Use: No Hx Substance Use: No Preferred Language: Hungarian Communication Ability: Effective Visual Impairment: No Limitations Digital Content Specialist Required: No Beliefs That Will Affect Care: None marital status: Single Current Living Situation: Family How many Children do You have: 1 Feels Safe at Home: Yes Diet: regular Assistive Devices: None Review of Systems A total of 10 systems reviewed and were otherwise negative Physical Exam Vital Signs Vital Signs - 24 hr 03/19/23 08:56 03/19/23 08:56 03/19/23 09:12 Pulse Rate 159 H Pulse Rate [Apical] Pulse Rate from SpO2 Sensor Respiratory Rate 18 Respiratory Effort / Characteristics Respiratory Pattern Blood Pressure 116/83 129/91 Blood Pressure [Left Arm] Blood Pressure Mean 94 97 Blood Pressure Mean [Left Arm] Pulse Oximetry 84 L Oxygen Delivery Method Nasal Cannula Nasal Cannula Oxygen Flow Rate 3 3 Sepsis Recent Fever Within 48 Hours No Sepsis New/Unexplained Change in Mental Status N/A Sepsis Action Taken by Nursing No Action Required 03/19/23 09:12 03/19/23 09:20 03/19/23 09:20 Pulse Rate 143 H 146 H Pulse Rate [Apical] Pulse Rate from SpO2 Sensor 142 H 151 H Respiratory Rate 28 H 23 Respiratory Effort / Characteristics Respiratory Pattern Blood Pressure 115/93 Blood Pressure [Left Arm] Blood Pressure Mean 98 Blood Pressure Mean [Left Arm] Pulse Oximetry 93 89 L Oxygen Delivery Method Oxygen Flow Rate Sepsis Recent Fever Within 48 Hours Sepsis New/Unexplained Change in Mental Status Sepsis Action Taken by Nursing 03/19/23 09:26 03/19/23 09:28 03/19/23 09:28 Pulse Rate 151 H 153 H Pulse Rate [Apical] 150 H Pulse Rate from SpO2 Sensor Respiratory Rate 18 18 Respiratory Effort / Characteristics Respiratory Pattern Blood Pressure Blood Pressure [Left Arm] 115/93 Blood Pressure Mean Blood Pressure Mean [Left Arm] 100 Pulse Oximetry 92 93 Oxygen Delivery Method Nasal Cannula Nasal Cannula Oxygen Flow Rate 4 4 Sepsis Recent Fever Within 48 Hours Sepsis New/Unexplained Change in Mental Status Sepsis Action Taken by Nursing 03/19/23 09:30 03/19/23 09:30 03/19/23 09:31 Pulse Rate 152 H Pulse Rate [Apical] 136 H Pulse Rate from SpO2 Sensor 152 H Respiratory Rate 22 18 Respiratory Effort / Characteristics Respiratory Pattern Blood Pressure 116/89 Blood Pressure [Left Arm] 116/84 Blood Pressure Mean 94 Blood Pressure Mean [Left Arm] 94 Pulse Oximetry 93 96 Oxygen Delivery Method Aerosol Mask Oxygen Flow Rate 6 Sepsis Recent Fever Within 48 Hours Sepsis New/Unexplained Change in Mental Status Sepsis Action Taken by Nursing 03/19/23 09:40 03/19/23 09:40 03/19/23 09:40 Pulse Rate 135 H Pulse Rate [Apical] 141 H Pulse Rate from SpO2 Sensor 111 H Respiratory Rate 20 26 H Respiratory Effort / Characteristics Spontaneous Respiratory Pattern Blood Pressure 108/86 Blood Pressure [Left Arm] Blood Pressure Mean 92 Blood Pressure Mean [Left Arm] Pulse Oximetry 89 L 72 L Oxygen Delivery Method Room Air Oxygen Flow Rate 4 Sepsis Recent Fever Within 48 Hours Sepsis New/Unexplained Change in Mental Status Sepsis Action Taken by Nursing 03/19/23 09:41 03/19/23 09:46 03/19/23 09:50 Pulse Rate Pulse Rate [Apical] 135 H 136 H Pulse Rate from SpO2 Sensor Respiratory Rate 18 18 Respiratory Effort / Characteristics Respiratory Pattern Blood Pressure 129/65 Blood Pressure [Left Arm] 108/86 108/86 Blood Pressure Mean 105 Blood Pressure Mean [Left Arm] 93 93 Pulse Oximetry 96 96 Oxygen Delivery Method Aerosol Mask Aerosol Mask Oxygen Flow Rate 6 6 Sepsis Recent Fever Within 48 Hours Sepsis New/Unexplained Change in Mental Status Sepsis Action Taken by Nursing 03/19/23 09:50 03/19/23 10:00 03/19/23 10:00 Pulse Rate 136 H 131 H Pulse Rate [Apical] Pulse Rate from SpO2 Sensor 137 H 132 H Respiratory Rate 29 H 26 H Respiratory Effort / Characteristics Respiratory Pattern Blood Pressure 124/85 Blood Pressure [Left Arm] Blood Pressure Mean 93 Blood Pressure Mean [Left Arm] Pulse Oximetry 95 98 Oxygen Delivery Method Oxygen Flow Rate Sepsis Recent Fever Within 48 Hours Sepsis New/Unexplained Change in Mental Status Sepsis Action Taken by Nursing 03/19/23 10:01 03/19/23 10:10 03/19/23 10:10 Pulse Rate 144 H Pulse Rate [Apical] 132 H Pulse Rate from SpO2 Sensor 145 H Respiratory Rate 18 25 H Respiratory Effort / Characteristics Respiratory Pattern Blood Pressure 122/92 Blood Pressure [Left Arm] 124/85 Blood Pressure Mean 113 Blood Pressure Mean [Left Arm] 98 Pulse Oximetry 96 96 Oxygen Delivery Method Aerosol Mask Oxygen Flow Rate 6 Sepsis Recent Fever Within 48 Hours Sepsis New/Unexplained Change in Mental Status Sepsis Action Taken by Nursing 03/19/23 10:15 03/19/23 10:20 03/19/23 10:20 Pulse Rate 140 H Pulse Rate [Apical] 138 H Pulse Rate from SpO2 Sensor 140 H Respiratory Rate 18 32 H Respiratory Effort / Characteristics Respiratory Pattern Blood Pressure 114/88 Blood Pressure [Left Arm] 122/92 Blood Pressure Mean 95 Blood Pressure Mean [Left Arm] 102 Pulse Oximetry 95 95 Oxygen Delivery Method Aerosol Mask Oxygen Flow Rate 6 Sepsis Recent Fever Within 48 Hours Sepsis New/Unexplained Change in Mental Status Sepsis Action Taken by Nursing 03/19/23 10:30 03/19/23 10:30 03/19/23 10:40 Pulse Rate 144 H Pulse Rate [Apical] Pulse Rate from SpO2 Sensor 144 H Respiratory Rate 27 H Respiratory Effort / Characteristics Respiratory Pattern Blood Pressure 122/87 113/85 Blood Pressure [Left Arm] Blood Pressure Mean 101 98 Blood Pressure Mean [Left Arm] Pulse Oximetry 94 Oxygen Delivery Method Oxygen Flow Rate Sepsis Recent Fever Within 48 Hours Sepsis New/Unexplained Change in Mental Status Sepsis Action Taken by Nursing 03/19/23 10:40 03/19/23 10:50 03/19/23 10:50 Pulse Rate 143 H 145 H Pulse Rate [Apical] Pulse Rate from SpO2 Sensor 143 H 144 H Respiratory Rate 29 H 21 Respiratory Effort / Characteristics Respiratory Pattern Blood Pressure 115/91 Blood Pressure [Left Arm] Blood Pressure Mean 101 Blood Pressure Mean [Left Arm] Pulse Oximetry 94 95 Oxygen Delivery Method Oxygen Flow Rate Sepsis Recent Fever Within 48 Hours Sepsis New/Unexplained Change in Mental Status Sepsis Action Taken by Nursing 03/19/23 10:52 03/19/23 11:00 03/19/23 11:00 Pulse Rate 149 H Pulse Rate [Apical] 147 H Pulse Rate from SpO2 Sensor 149 H Respiratory Rate 16 31 H Respiratory Effort / Characteristics Respiratory Pattern Blood Pressure 140/86 Blood Pressure [Left Arm] 115/91 Blood Pressure Mean 102 Blood Pressure Mean [Left Arm] 99 Pulse Oximetry 92 86 L Oxygen Delivery Method Aerosol Mask Oxygen Flow Rate 6 Sepsis Recent Fever Within 48 Hours Sepsis New/Unexplained Change in Mental Status Sepsis Action Taken by Nursing 03/19/23 11:10 03/19/23 11:10 03/19/23 11:27 Pulse Rate 140 H 139 H Pulse Rate [Apical] Pulse Rate from SpO2 Sensor 140 H 139 H Respiratory Rate 24 26 H Respiratory Effort / Characteristics Respiratory Pattern Blood Pressure 120/83 Blood Pressure [Left Arm] Blood Pressure Mean 107 Blood Pressure Mean [Left Arm] Pulse Oximetry 90 88 L Oxygen Delivery Method Oxygen Flow Rate Sepsis Recent Fever Within 48 Hours Sepsis New/Unexplained Change in Mental Status Sepsis Action Taken by Nursing 03/19/23 11:28 03/19/23 11:28 03/19/23 11:30 Pulse Rate 138 H 135 H Pulse Rate [Apical] Pulse Rate from SpO2 Sensor 138 H 135 H Respiratory Rate 26 H 24 Respiratory Effort / Characteristics Respiratory Pattern Blood Pressure 120/82 Blood Pressure [Left Arm] Blood Pressure Mean 99 Blood Pressure Mean [Left Arm] Pulse Oximetry 89 L 91 Oxygen Delivery Method Oxygen Flow Rate Sepsis Recent Fever Within 48 Hours Sepsis New/Unexplained Change in Mental Status Sepsis Action Taken by Nursing 03/19/23 11:30 03/19/23 11:33 03/19/23 11:40 Pulse Rate Pulse Rate [Apical] 133 H Pulse Rate from SpO2 Sensor Respiratory Rate 22 Respiratory Effort / Characteristics Short of Breath Respiratory Pattern Regular Blood Pressure 101/83 122/90 Blood Pressure [Left Arm] 101/83 Blood Pressure Mean 91 104 Blood Pressure Mean [Left Arm] 89 Pulse Oximetry 90 Oxygen Delivery Method Oxymask Oxygen Flow Rate 6 Sepsis Recent Fever Within 48 Hours Sepsis New/Unexplained Change in Mental Status Sepsis Action Taken by Nursing 03/19/23 11:40 Pulse Rate 138 H Pulse Rate [Apical] Pulse Rate from SpO2 Sensor 137 H Respiratory Rate 29 H Respiratory Effort / Characteristics Respiratory Pattern Blood Pressure Blood Pressure [Left Arm] Blood Pressure Mean Blood Pressure Mean [Left Arm] Pulse Oximetry 89 L Oxygen Delivery Method Oxygen Flow Rate Sepsis Recent Fever Within 48 Hours Sepsis New/Unexplained Change in Mental Status Sepsis Action Taken by Nursing General: Slender and cachectic middle-aged female who is on supplemental oxygen but in no acute distress, breathing comfortably. Normal speech HEENT: Normal cephalic atraumatic. Pupils are equal round and reactive to light. Extraocular movements are intact. Oropharynx is pink with moist mucous membranes. No swelling of the mouth lips or tongue. Neck: Supple with a midline trachea. No meningeal signs or stiffness, no JVD or bruits. No Stridor. Chest: Clear to auscultation bilaterally. No wheezes or rhonchi. No increased work of breathing. Heart: Tachycardic but regular without murmurs or gallops. Abdomen: Soft nontender, nondistended without rebound guarding or rigidity. Extremities: No cyanosis clubbing or edema. No calf tenderness or assymetry Spine/Back. Non tender to palpation. No CVA tenderness Skin: Good turgor without rashes. Neurologic exam: Cranial nerves two through 12 are intact. Motor and sensation are intact and symmetrical throughout. Course Administered Medications Discontinued Medications Albuterol (Albut/Ipratrop 3mg/0.5mg Neb 3 Ml Vial) 12 ml NEB ONE ONE; Protocol Stop: 03/19/23 09:23 Last Admin: 03/19/23 09:40 Dose: 12 ml Documented By: LOVELY Sodium Chloride (Nss) 500 mls @ 999 mls/hr IV .Q31M ONE Stop: 03/19/23 09:51 Last Infusion: 03/19/23 10:11 Dose: Infused Documented By: Admin: 03/19/23 09:38 Dose: 999 mls/hr Documented By: LOUANN Sodium Chloride (Nss) 1,000 mls @ 999 mls/hr IV .Q1H1M ONE Stop: 03/19/23 11:50 Last Infusion: 03/19/23 11:49 Dose: Infused Documented By: Admin: 03/19/23 10:55 Dose: 999 mls/hr Documented By: LOUANN Piperacillin Sod/Tazobactam Sod (Zosyn) 4.5 gm in 100 mls @ 200 mls/hr IV NOW ONE Stop: 03/19/23 11:29 Last Infusion: 03/19/23 11:49 Dose: Infused Documented By: Admin: 03/19/23 11:10 Dose: 200 mls/hr Documented By: ISA Ioversol (Optiray 320 125ml) 55 ml IV ONCE ONE Stop: 03/19/23 11:22 Last Admin: 03/19/23 11:28 Dose: 55 ml Documented By: FALLON Methylprednisolone (Methylprednisolone 125 Mg/2 Ml Vial) 125 mg IV NOW STA Stop: 03/19/23 09:23 Last Admin: 03/19/23 09:38 Dose: 125 mg Documented By: LOUANN Critical Care Time Critical Care Time: Yes Total Critical Care Time: 38 Due to the patient's acute respiratory illness with unstable vital signs with hypoxemia and significant tachycardia, need for multiple IV and respiratory medications, IV fluids, IV antibiotics, IV steroids and nebulized treatment as well as consultation with the hospitalist pharmacist and discussion with respiratory care, I have personally spent greater than 38 minutes of critical care time in the direct management of this patient. This includes bedside care, interpretation of diagnostic studies, and testing, discussion with consultants, patient, and family members, and other required patient management activities. This 38 minutes is in excess of all separately billable procedures. Medical Decision Making Differential Diagnosis COPD exacerbation, pneumonia, pneumothorax, aspiration, sepsis, acute coronary syndrome, arrhythmia, anemia, PE Medical Records Attestation: I reviewed the patient's medical records. Home Medications Current Medication List: was personally reviewed by me Laboratory Data Attestation: I reviewed the patient's lab results. 03/19/23 09:17 03/19/23 11:39 Lab Results 03/19/23 03/19/23 03/19/23 Range/Units 09:17 11:39 12:04 WBC 12.99 H (4.8-10.8) K/ul RBC 5.87 H (4.20-5.40) M/uL Hgb 12.6 (12.0-16.0) g/dl POC Hgb 15.6 (12.0-16.0) g/dl Hct 44.3 (37.0-47.0) % POC Hct 46 (37-47) % MCV 75.5 L (80.0-100.0) fL MCH 21.5 L (25.0-34.0) pg MCHC 28.4 L (32.0-36.0) g/dL RDW Std Deviation 42.9 (36.4-46.3) fL RDW Coeff of Abhishek 16.4 H (11.5-14.5) % Plt Count 579 H (130-400) K/uL MPV 9.7 (9.4-12.4) fL Immature Gran % (Auto) 0.4 % Neut % (Auto) 69.1 % Lymph % (Auto) 23.3 % Runnels % (Auto) 5.5 % Eos % (Auto) 1.2 % Baso % (Auto) 0.5 % Neut # (Auto) 8.97 H (1.40-6.50) K/uL Lymph # (Auto) 3.03 (1.20-3.40) K/uL Runnels # (Auto) 0.72 H (0.11-0.59) K/uL Eos # (Auto) 0.16 (0.00-0.50) K/uL Baso # (Auto) 0.06 (0.00-0.20) K/uL Immature Gran # (Auto) 0.05 (0.01-0.20) K/uL RBC Morphology Unremarkable D-Dimer 640 H* (0-500) ug/L FEU VBG pH 7.32 L (7.36-7.41) VBG pCO2 57 H (38-50) mmHg VBG pO2 < 20 mmHg VBG HCO3 29 mmol/L VBG O2 Saturation < 60.0 % VBG Base Excess 2.0 mEq/L POC Sodium 140 (135-144) mmol/L Sodium TNP 139 POC Potassium 4.0 (3.3-5.0) mmol/L Potassium TNP 3.7 POC Chloride 103 (101-112) mmol/L Chloride 99 (98-107) mmol/L Carbon Dioxide 27 (21-32) mmol/L POC Total CO2 27 (24-31) mmol/L Anion Gap TNP POC Anion Gap 15.0 L (16-25) mmol/L POC BUN 7 (7-18) mg/dl BUN 9 (6-23) mg/dl Creatinine 0.49 L (0.6-1.2) mg/dl POC Creatinine 0.4 L (0.6-1.3) mg/dl Est Cr Clr Drug Dosing 89.0 ml/min Est GFR ( Amer) 134.5 ml/min Est GFR (Non-Af Amer) 116.0 ml/min BUN/Creatinine Ratio 18.4 (10-20) Glucose 136 H (70-99(Fasting)) mg/dl POC Glucose (other) 144 H (70-99) mg/dl Lactate 4.5 H* 2.6 H* (0.4-2.0) mmol/L Calcium 10.4 H (8.6-10.3) mg/dl POC Ioniz Calcium [place] 1.25 (1.12-1.32) mmol/l Phosphorus 2.2 L (2.5-4.9) mg/dl Magnesium TNP 1.8 Total Bilirubin 0.5 (0.2-1.0) mg/dl Direct Bilirubin TNP 0.1 AST TNP 12 L ALT 9 (7-52) U/L Alkaline Phosphatase TNP 128 H Troponin I High Sens 5.7 (0-14) pg/ml B-Natriuretic Peptide 42 (0-100) pg/ml Total Protein 9.8 H (6.0-8.3) gm/dl Albumin TNP 3.7 Procalcitonin < 0.05 (0-0.5) ng/ml Urine Color Yellow Urine Appearance Turbid A (Clear) Urine pH 5.5 (4.5-7.5) Ur Specific [place] 1.037 H (1.000-1.030) Urine Protein Trace H (Negative) Urine Glucose (UA) 1+ H (Negative) Urine Ketones 2+ H (Negative) Urine Blood Negative (Negative) Urine Nitrite Positive A (Negative) Urine Bilirubin Negative (Negative) Urine Urobilinogen Negative (Negative) Ur Leukocyte Esterase 2+ H (Negative) Urine WBC (Auto) >30 H (0-5) /hpf Urine RBC (Auto) 0-4 (0-4) /hpf U Hyaline Cast (Auto) 10-30 H (0-5) /lpf U Epithel Cells (Auto) >30 H (0-5) /lpf Urine Bacteria (Auto) 2+ H (Negative) Urine Yeast Present A (None Prsent) Adenovirus (PCR) Not Detected (NotDetected) B. pertussis DNA (PCR) Not Detected (NotDetected) B.parapertussis DNA PCR Not Detected (NotDetected) C. pneumoniae DNA (PCR) Not Detected (NotDetected) Coronavirus OC43 (PCR) Not Detected (NotDetected) Coronavirus HKU1 (PCR) Not Detected (NotDetected) Coronavirus 229E (PCR) Not Detected (NotDetected) SARS-CoV-2 (PCR) Not Detected (NotDetected) Coronavirus NL63 (PCR) Not Detected (NotDetected) Human Metapneumovir PCR Not Detected (NotDetected) Influenza Type A (PCR) Not Detected (NotDetected) Influenza Type B (PCR) Not Detected (NotDetected) M. pneumoniae (PCR) Not Detected (NotDetected) Parainfluenza 1 (PCR) Not Detected (NotDetected) Parainfluenza 2 (PCR) Not Detected (NotDetected) Parainfluenza 3 (PCR) Not Detected (NotDetected) Parainfluenza 4 (PCR) Not Detected (NotDetected) RSV (PCR) Not Detected (NotDetected) Entero/Rhino (PCR) Not Detected (NotDetected) Imaging Data Attestation: I personally reviewed and interpreted this imaging study as follows: My Impression: Chest x-rayper my interpretationno acute infiltrate, failure, pneumothorax seen. CT angiography of the chestPer my interpretation. I do not see a large PE. I do not see pneumothorax. There appears to be consolidation or atelectasis in both bases mostly on the left. Radiologist's Impression: Chest X-Ray 03/19/23 09:16 XR chest 1V portable CLINICAL HISTORY: Sepsis TECHNIQUE: Single frontal radiograph of the chest was obtained. Comparison: Comparison is made to chest radiograph 11/28/2022 FINDINGS: No lines and tubes are seen. The cardiomediastinal silhouette is normal. The lungs are clear. No evidence of pleural effusion or pneumothorax. IMPRESSION: No acute abnormalities and in particular no radiographic evidence of pneumonia. ACT 112: Negative or not required by law. Electronically signed by: Timoteo Beckman M.D. 03/19/2023 9:57 AM Chest CTA 03/19/23 10:50 CT angio chest PE protocol CLINICAL HISTORY: PE TECHNIQUE: Multidetector row helical CT of the chest was performed with angiographic protocol. Coronal and sagittal reformations were obtained. Coronal and sagittal MIPS were obtained from the axial data set and were submitted for review. Automated dose lowering techniques and/or adjustment according to patient size were utilized for this exam. CT DOSE: 271.09 mGy.cm Comparison: Comparison is made to CTA chest 04/28/2019 FINDINGS: Lungs and pleura: Atelectasis of the right middle and bilateral lower lobes are seen. Bronchial wall thickening is seen on the right with abrupt cut off of the left lower lobe bronchus. There is a 3 mm groundglass nodule in the right upper lobe (series 4 image 162). Heart and pericardium: Heart size is normal. No pericardial effusion. Vessels: No evidence of pulmonary embolism. Mediastinum and jones: No lymphadenopathy. Patulous esophagus is again seen. Chest wall and lower neck: Unremarkable. Abdomen: Unremarkable. Bones: Unremarkable. IMPRESSION: 1. No pulmonary embolus. 2. There is atelectasis of the right middle and lower lobes and the left lower lobe, progressed from prior exam. Bronchial wall thickening in the right lower lobe may reflect infectious/inflammatory process. The same is likely a true of the left, however follow-up to resolution is recommended to exclude endobronchial lesion. 3. Patulous esophagus. ACT 112: Negative or not required by law. Electronically signed by: Timoteo Beckman M.D. 03/19/2023 11:57 AM ECG Data Attestation: I personally reviewed and interpreted this ECG as follows: Indication: + SOB/dyspnea Rate (beats per minute): 144 Rhythm: + sinus tachycardia (Poor baseline but suspect sinus tachycardia) ECG Intervals/blocks: + Left bundle branch block ECG [place]: + Left axis deviation ECG ST segments: + Nonspecific ST abnormalities ECG Findings: no PACs or no PVCs Comparison ECG Date: from (02/10/22) Change: the following changes noted (Left bundle branch is old. Sinus tachycardia is new) MDM Narrative This patient comes in as scribed above she was placed on a melt supervisor room A1 I saw her promptly. She was hypoxemic. She was placed on oxygen. I reviewed her history. She does have baseline left bundle branch block which looks like she is in now. She does look somewhat dry and her says he has not been drinking much. I did give her 500 cc IV normal saline bolus. I also ordered Solu-Medrol 125 mg IV and albuterol Atrovent nebs given her COPD history. Extensive work-up was done for sepsis cardiac and pulmonary disease as well as other etiologies. She was reassessed frequently. Her chest x-ray was clear, there is no pneumothorax or CHF. She has no significant anemia. Her VBG shows pH is 7.32 PCO2 was mildly elevated at 52. White count is mildly elevated however lactic acid came back significantly elevated at greater than 4. She only weighs 39.7 kg she has received 1500 cc of IV normal saline which is more than 30 cc/kg of IV fluids. Her dimer was mildly elevated and looking through her chart I was also worried about aspiration. In light of this with her I did order CT angiography of the chest. There is no PE there is atelectasis/infiltrates in the base. She has been covered with antibiotics with Zosyn 4.5 g IV. I did discuss this with Dagmar, our ED pharmacist. I do think the patient needs to be admitted/observed she is continues to require oxygen and is on high flow nasal cannula although looks significantly better her lactic acid is clearing with the most recent 1 at 2.6 down from 4.6. She has received IV fluids, IV antibiotics, 1 hour-long neb, IV steroids and will be admitted for further treatment and evaluation. Based on her labs and concern for sepsis as well as pneumonia in the setting of a COPD exacerbation. Her heart rate was tachycardic however this was trending downward to the 120s before she left the ED Continuous cardiac monitoring: Orders placed in EMR for continuous cardiac monitoring: Pulm evaluation patient noted to be in sinus tachycardia with a rate of 145 Impression & Plan Hypoxemia, Shortness of breath, Sinus tachycardia, COPD exacerbation, Pneumonia, Lab test negative for COVID-19 virus, Tobacco abuse Discharge Plan Visit Data Chief Complaint: Shortness of Breath/Dyspnea Stated Complaint: SOB ED Provider: Jose Amaya Discharge Problem: Hypoxemia, Shortness of breath, Sinus tachycardia, COPD exacerbation, Pneumonia, Lab test negative for COVID-19 virus, Tobacco abuse Discharge Instructions Interventions: ED Discharge Assessment Last Done: 03/19/23 13:57 Discharge Problem: Pneumonia Qualifiers: Pneumonia type: due to unspecified organism Laterality: bilateral Lung location: lower lobe of lung Qualified Code(s): J18.9 - Pneumonia, unspecified organism
[2023-03-19 09:30] LABS: HCO3 VBG 29 mmol/L; Oxygen Saturation VBG < 60.0 %; PCO2 VBG 57 mmHg (38-50); PO2 VBG < 20 mmHg; pH VBG 7.32 (7.36-7.41)
[2023-03-19 09:35] LABS: iSTAT Creatinine 0.4 mg/dl (0.6-1.3); iSTAT Hemoglobin 15.6 g/dl (12.0-16.0); iSTAT Ionized Calcium 1.25 mmol/l (1.12-1.32)
[2023-03-19 09:37] LABS: Hematocrit (blood only) 44.3 % (37.0-47.0); Hemoglobin 12.6 g/dl (12.0-16.0); Mean Corpuscular Hemoglobin 21.5 pg (25.0-34.0); Mean Corpuscular Hgb Conc 28.4 g/dL (32.0-36.0); Mean Corpuscular Volume 75.5 fL (80.0-100.0); Mean Platelet Volume 9.7 fL (9.4-12.4); Platelet Count 579 K/uL (130-400); RDW Coefficient of Variation 16.4 % (11.5-14.5); RDW Standard Deviation 42.9 fL (36.4-46.3); Red Blood Count 5.87 M/uL (4.20-5.40); White Blood Count 12.99 K/ul (4.8-10.8)
[2023-03-19 09:53] LABS: Basophils # (auto) 0.06 K/uL (0.00-0.20); Basophils % (auto) 0.5 %; Eosinophils # (auto) 0.16 K/uL (0.00-0.50); Eosinophils % (auto) 1.2 %; Immature Granulocytes # (auto) 0.05 K/uL (0.01-0.20); Immature Granulocytes % (auto) 0.4 %; Lymphocytes # (auto) 3.03 K/uL (1.20-3.40); Lymphocytes % (auto) 23.3 %; Monocytes # (auto) 0.72 K/uL (0.11-0.59); Monocytes % (auto) 5.5 %; Neutrophils # (auto) 8.97 K/uL (1.40-6.50); Neutrophils % (auto) 69.1 %; RBC Morphology Unremarkable
--- NOTE | 2023-03-19 09:59 | XRay Report ---
XR chest 1V portable CLINICAL HISTORY: Sepsis TECHNIQUE: Single frontal radiograph of the chest was obtained. Comparison: Comparison is made to chest radiograph 11/28/2022 FINDINGS: No lines and tubes are seen. The cardiomediastinal silhouette is normal. The lungs are clear. No evid ence of pleural effusion or pneumothorax. IMPRESSION: No acute abnormalities and in particular no radiographic evidence of pneumonia. ACT 112: Negative or not required by law. Electronically signed by: Timoteo Beckman M.D. 03/19/2023 9:57 AM
[2023-03-19 10:20] LABS: Adenovirus PCR Not Detected (NotDetected); Bordetella parapertussis PCR Not Detected (NotDetected); Bordetella pertussis PCR Not Detected (NotDetected); Chlamydia pneumoniae PCR Not Detected (NotDetected); Coronavirus 229E PCR Not Detected (NotDetected); Coronavirus CoV-2 (COVID19)PCR Not Detected (NotDetected); Coronavirus HKU1 PCR Not Detected (NotDetected); Coronavirus NL63 PCR Not Detected (NotDetected); Coronavirus OC43PCR Not Detected (NotDetected); Human Metapneumovirus PCR Not Detected (NotDetected); Influenza A PCR Not Detected (NotDetected); Influenza B PCR Not Detected (NotDetected); Mycoplasma pneumoniae PCR Not Detected (NotDetected); Parainfluenza Virus 1 PCR Not Detected (NotDetected); Parainfluenza Virus 2 PCR Not Detected (NotDetected); Parainfluenza Virus 3 PCR Not Detected (NotDetected); Parainfluenza Virus 4 PCR Not Detected (NotDetected); Respiratory Syncytial VirusPCR Not Detected (NotDetected); Rhinovirus/Enterovirus PCR Not Detected (NotDetected)
[2023-03-19 10:34] LABS: D Dimer 640 ug/L FEU (0-500)
[2023-03-19] MEDS ORDERED: SODIUM CHLORIDE 0.9% 1,000 ML IV ONE (10:50)
[2023-03-19] MEDS ORDERED: PIPERACILLIN/TAZOBACTAM 4.5 GM/100 ML BAG IV ONE (11:00)
[2023-03-19 11:07] LABS: Alanine Aminotransferase 9 U/L (7-52); BUN Creatinine Ratio 18.4 (10-20); Bilirubin,Total 0.5 mg/dl (0.2-1.0); Blood Urea Nitrogen 9 mg/dl (6-23); Calcium 10.4 mg/dl (8.6-10.3); Carbon Dioxide 27 mmol/L (21-32); Chloride 99 mmol/L (98-107); Est GFR (African American) 134.5 ml/min; Glucose 136 mg/dl (70-99(Fasting)); Total Protein 9.8 gm/dl (6.0-8.3)
[2023-03-19 11:14] LABS: Troponin I High Sensitivity 5.7 pg/ml (0-14)
[2023-03-19] MEDS ORDERED: OPTIRAY 320 125ml IV ONE (11:21)
--- NOTE | 2023-03-19 11:59 | CT Scan Report ---
CT angio chest PE protocol CLINICAL HISTORY: PE TECHNIQUE: Multidetector row helical CT of the chest was performed with angiographic protocol. Whalen l and sagittal reformations were obtained. Coronal and sagittal MIPS were obtained from the axial mohit a set and were submitted for review. Automated dose lowering techniques and/or adjustment according to patient size were utilized for this exam. CT DOSE: 271.09 mGy.cm Comparison: Comparison is made to CTA chest 04/28/2019 FINDINGS: Lungs and pleura: Atelectasis of the right middle and bilateral lower lobes are seen. Bronchial wall thickening is seen on the right with abrupt cut off of the left lower lobe bronchus. There is a 3 mm groundglass nodule in the right upper lobe (series 4 image 162). Heart and pericardium: Heart size is normal. No pericardial effusion. Vessels: No evidence of pulmonary embolism. Mediastinum and jones: No lymphadenopathy. Patulous esophagus is again seen. Chest wall and lower neck: Unremarkable. Abdomen: Unremarkable. Bones: Unremarkable. IMPRESSION: 1. No pulmonary embolus. 2. There is atelectasis of the right middle and lower lobes and the left lower lobe, progressed from prior exam. Bronchial wall thickening in the right lower lobe may reflect infectious/inflammatory pr ocess. The same is likely a true of the left, however follow-up to resolution is recommended to exclu de endobronchial lesion. 3. Patulous esophagus. ACT 112: Negative or not required by law. Electronically signed by: Timoteo Beckman M.D. 03/19/2023 11:57 AM
[2023-03-19 12:10] LABS: Albumin Level 3.7 gm/dl (3.4-5.0); Bilirubin Direct 0.1 mg/dl (0-0.2); Magnesium 1.8 mg/dl (1.7-2.4); Phosphorus 2.2 mg/dl (2.5-4.9); Potassium 3.7 mmol/L (3.5-5.1)
--- NOTE | 2023-03-19 12:10 | History & Physical Report ---
Date of Service March 19, 2023 Assessment & Plan (1) Acute respiratory failure with hypoxia: Plan: Acute hypoxic respiratory failure, aspiration with COPD exacerbation, suspected mucous plugging Patient meets sepsis criteria on admission. Endorses fever, has a le ukocytosis, and suspected pulmonary source although Pro-Murray/x-ray are normal. Has recurrent aspiration events. Zosyn with Doxy continued. Anoro continued. Doxy chosen over azithromycin due to borderline QT. MRSA nares pending - xopenex nebs PRN 2/2 tachycardia CTA shows no evidence of PE; she is evidence of chronic aspiration and progressive opacification of left inferior lobe. Suspected mucous plug, endobronchial lesion not excluded. Received 1500 cc of crystalloid bolus on admission, patient is approximately 40 kg and has met 30 cc/kg sepsis recommendations. EKG: Tachycardia with LBBB. Patient has a known prior history of left bundle branch block and first-degree AV block, patient with heart rate of 124 and QRS 122 on admission. Patient is normotensive. Patient with transition to a rapid tachycardia during auscultation on room, reviewed telemetry strip and this is consistent with her prior sinus tachycardia and QRS on the strip is not significantly prolonged. Did review with cardiology, low suspicion for ischemic origin and is not consistent with, continue to treat respiratory failure as noted. Lactate initially elevated 4.5, following fluids rapidly downtrending. No abdominal pain Patient has not been on recent steroids and does not have a history of immunosuppression, but is with marked malnutrition Reviewed CT with pulm. Agree and suspect mucous plugging of the left lower lobe. Agree with antibiotics, pulmonary toilet, sputum culture, bronchodilators. Will add hypertonic saline. If patient is not clinically improving/will formally consult pulm at that point and can consider bronchoscopy likely next week. Magnesium 1.8, will optimize to 2.0. 1 g IV given. Potassium is normal BC, sputum culture, MRSA nare pending Received 125 mg of Solu-Medrol on admission, wheezing is nearly completely resolved. Will continue 40 mg daily, wean based on clinical progress (2) Dysphagia: Plan: Recurrent aspiration, history of achalasia and dysphagia With additional history of bronchiectasis 2/2 chronic aspiration pneumonia right greater than left. Patient uses flutter valve at home. Videofluoroscopy 01/2022 with continued tracheal aspiration. Patient was seen by [facility] in 2019, motility study consistent with achalasia and s/p myotomy PEG tube removed 2020. Permanent aspiration risk, patient has declined PEG/J- tube's after removal in 2020 on follow-up and does not wish to be replaced under any circumstances Patulous esophagus redemonstrated on CT, no change from prior Due to acute hypoxia suspicion w/ basline aspiration will keep n.p.o. at this time. --> IVFM, nutrition consulted (3) COPD exacerbation: Plan: COPD Home Anoro continued PFTs 2021: Severe obstructive lung dysfunction with bronchodilator response, mildly decreased DLCO. Management of acute exacerbation as above (4) Aspiration pneumonia: Plan: - Abx/tx as noted (5) Severe protein-calorie malnutrition: Plan: - BMI 15, weight 39.7kg - Nutrition consulted - Chronic aspiration, speech consult deferred as likely to have had no interval change. - Discussed recurrent aspiration with pt, she is clear she does not wish to have a repeat PEG tube even if this prevented/reduced aspiration events and complications. ?TPN is an alternative, but would require line placement & w/ high infection risk (6) LBBB (left bundle branch block): Plan: Sinus tachycardia with left bundle branch block - EKG as above, no acute ischemic change. Patient has some pain with coughing, but denies any chest pain at rest. She endorses weakness, but outside of this has not had chest pain or chest pressure with exertion Reactive to volume depletion and pulmonary disease, treated as above. No indication at this time for rate control. Optimize magnesium 2.0/K 4.0 - trop wnl (7) Marijuana abuse: Plan: Marijuana use, former tobacco use Marijuana cessation recommended [id number] smoking history in remission since 2019 Plan DVT PPx: Heparin SQ Diet: NPO CODE: Full Dispo: PCU History of Present Illness Primary Care Provider: Deonte Cortés DO Loulou is a 47-year-old female with a past medical history of COPD, dysphagia and recurrent aspiration requiring temporary J-tube in the past which was subsequently removed, iron deficiency anemia, uterine fibroid with past bleeding subsequently improved who presents with tachycardia and shortness of breath. Patient presents with fatigue, cough, and shortness of breath for approximately 1 week. She was hypoxic requiring supplemental oxygen in the ER. Due to hypoxia, elevated lactate, and tachycardia she was subsequently recommended for admission. Per Pt: Cough for 'a very long time' but suddenly worse ~7 days ago. Coughing productive for clear sputum in the lat few days. +increased shortness of breath. Past home O2 requirement this past year due to aspirin + covid with chronic respiratory failure, recovered and was weaned off oxygen in November 2022. Has followed with GI in the past, but 'not in a long time.' Had discused surgery to help 'the front of the throat close' Had a 'muscle cut' for achelasia, no other GI interventions. Endorses a fever of ~100*F for the last day. Endorses a history of hot flashes, but no new hot flashes or night sweats REports that is was painful when coughing and taking a deep breath this morning when coughing hard, but otherwise no chest pain. No chest pressure. Has been using her home inhalers as directed at home. Takes Anoro once per day, Also used albuterol rescue inhaler one time but did not feel she got any improvement from this Endorses increased wheezing the last week One episode of emesis which was just soup and broth. Denies diarrhea. NO nausea at time of admission. Feels full easily with small amounts of food, does not eat much due to easy satiety. Generally eats soups and does not eat large/solid food to it getting stuck easily/. Endorses globus feeling intermittently, denies aspiration event to her knowledge. Does not take steroids normally. Last steroid course was while in the hospital at last admission, did not take any steroids as outpatient. She has had urinary incontinence but denies dysuria and hematuria. UA is contaminated versus infected appearing Medical History: Reviewed Medications: Reviewed Surgical History: Reviewed Family history: Reviewed Allergies: Reviewed Social History: Former tobacco use, none recently. No etoh use. Uses smoked marijuana intermittently for anxiety/depression. Code Status: Full Code Allergies Allergy/AdvReac Type Severity Reaction Status Date / Time No Known Allergies Allergy Verified 03/19/23 12:09 Home Medications Medication Instructions Recorded Confirmed Type albuterol sulfate 90 mcg/actuation 2 puff inhalation QID PRN 11/28/22 03/19/23 Rx aerosol inhaler Shortness Of Breath #18 grams umeclidinium 62.5 mcg-vilanterol 1 inh inhalation DAILY #60 ea 11/28/22 03/19/23 Rx 25 mcg/actuation powdr for inhalation (Anoro Ellipta) Past Med/Surg History Medical History (Updated 03/19/23 @ 13:26 by Gualberto Huntley MD) Acute respiratory failure with hypoxia COVID-19 Ovarian cyst Poor dentition COPD (chronic obstructive pulmonary disease) Difficulty swallowing Difficulty chewing Depression Anxiety Tobacco abuse Marijuana smoker Constipation Arthritis Scoliosis Surgical History History of esophagogastroduodenoscopy (EGD) Family History Other Family history non-contributory Social History Smoking Status: Current every day smoker Tobacco Type: Cigarettes Cigarettes Per Day: 1 PACK/DAY; Second Hand Exposure: Yes; Do You Dip or Chew Tobacco: No; Hx Alcohol Use: No Hx Substance Use: No Preferred Language: Somali Communication Ability: Effective Visual Impairment: No Limitations Bereavement Program Coordinator Required: No Beliefs That Will Affect Care: None marital status: Single Current Living Situation: Family How many Children do You have: 1 Feels Safe at Home: Yes Diet: regular Assistive Devices: None Physical Exam Physical Exam: General: A&Ox3. NAD. Cooperative. Appears chronically ill, malnourished HEENT: Atraumatic, normocephalic. PERLAA. PERLAA. Pulm: CTAB A&P. minimal expiratory wheezes, -rales, -rhonchi. Symmetrical chest rise. No increased work of breathing. No respiratory distress. Cardiac: tachycardic, +sot sm. Radial pulses intact and symmetrical. Abdominal: Nontender, nondistended, soft. BS present. Well healed LUQ abdominal scar at prior PEG side. Ext: thin. No swelling. no edema. no erythema. Results & Data Results & Data Vital Signs (Past 12 Hours) Vital Signs Pulse Pulse Resp BP BP Pulse Ox O2 Del Method 03/19/23 11:40 138 H 29 H 89 L 03/19/23 11:40 122/90 03/19/23 11:33 133 H 22 101/83 90 Oxymask 03/19/23 11:30 101/83 03/19/23 11:30 135 H 24 91 03/19/23 11:28 138 H 26 H 89 L 03/19/23 11:28 120/82 03/19/23 11:27 139 H 26 H 88 L 03/19/23 11:10 120/83 03/19/23 11:10 140 H 24 90 03/19/23 11:00 149 H 31 H 86 L 03/19/23 11:00 140/86 03/19/23 10:52 147 H 16 115/91 92 Aerosol Mask 03/19/23 10:50 115/91 03/19/23 10:50 145 H 21 95 03/19/23 10:40 143 H 29 H 94 03/19/23 10:40 113/85 03/19/23 10:30 144 H 27 H 94 03/19/23 10:30 122/87 03/19/23 10:20 140 H 32 H 95 03/19/23 10:20 114/88 03/19/23 10:15 138 H 18 122/92 95 Aerosol Mask 03/19/23 10:10 144 H 25 H 96 03/19/23 10:10 122/92 03/19/23 10:01 132 H 18 124/85 96 Aerosol Mask 03/19/23 10:00 131 H 26 H 98 03/19/23 10:00 124/85 03/19/23 09:50 136 H 29 H 95 03/19/23 09:50 129/65 03/19/23 09:46 136 H 18 108/86 96 Aerosol Mask 03/19/23 09:41 135 H 18 108/86 96 Aerosol Mask 03/19/23 09:40 108/86 03/19/23 09:40 135 H 26 H 72 L 03/19/23 09:40 141 H 20 89 L Room Air 03/19/23 09:31 136 H 18 116/84 96 Aerosol Mask 03/19/23 09:30 152 H 22 93 03/19/23 09:30 116/89 03/19/23 09:28 150 H 18 115/93 93 Nasal Cannula 03/19/23 09:28 153 H 18 92 Nasal Cannula 03/19/23 09:26 151 H 03/19/23 09:20 146 H 23 89 L 03/19/23 09:20 115/93 03/19/23 09:12 143 H 28 H 93 03/19/23 09:12 129/91 03/19/23 08:56 Nasal Cannula 03/19/23 08:56 159 H 18 116/83 84 L Nasal Cannula O2 Flow Rate 03/19/23 11:40 03/19/23 11:40 03/19/23 11:33 6 03/19/23 11:30 03/19/23 11:30 03/19/23 11:28 03/19/23 11:28 03/19/23 11:27 03/19/23 11:10 03/19/23 11:10 03/19/23 11:00 03/19/23 11:00 03/19/23 10:52 6 03/19/23 10:50 03/19/23 10:50 03/19/23 10:40 03/19/23 10:40 03/19/23 10:30 03/19/23 10:30 03/19/23 10:20 03/19/23 10:20 03/19/23 10:15 6 03/19/23 10:10 03/19/23 10:10 03/19/23 10:01 6 03/19/23 10:00 03/19/23 10:00 03/19/23 09:50 03/19/23 09:50 03/19/23 09:46 6 03/19/23 09:41 6 03/19/23 09:40 03/19/23 09:40 03/19/23 09:40 4 03/19/23 09:31 6 03/19/23 09:30 03/19/23 09:30 03/19/23 09:28 4 03/19/23 09:28 4 03/19/23 09:26 03/19/23 09:20 03/19/23 09:20 03/19/23 09:12 03/19/23 09:12 03/19/23 08:56 3 03/19/23 08:56 3 PG Care Time/CCT Total # of Minutes Spent Total Time Spent with Patient: Total time spent is greater than 50% in coordination of care (as documented) at patient's floor/unit and/or counseling patient: Coding Level of Care Code 67871 INT INP/OBS CARE 3/75MIN Diagnoses Acute respiratory failure with hypoxia J96.01 Dysphagia R13.10 COPD exacerbation J44.1 Aspiration pneumonia J69.0 Severe protein-calorie malnutrition E43 LBBB (left bundle branch block) I44.7 Marijuana abuse F12.10
[2023-03-19 12:26] LABS: Appearance Urine Turbid (Clear); Bacteria Urine Automated 2+ (Negative); Bilirubin Urine Negative (Negative); Blood Urine Negative (Negative); Color Urine Yellow; Epithelial Cell Urine Auto >30 /lpf (0-5); Glucose Urine UA 1+ (Negative); Ketones Urine 2+ (Negative); Leukocyte Esterase Urine 2+ (Negative); Nitrite Urine Positive (Negative); Protein Urine Trace (Negative); Specific Gravity Urine 1.037 (1.000-1.030); Urobilinogen Urine Negative (Negative); WBC Urine Automated >30 /hpf (0-5); pH Urine 5.5 (4.5-7.5)
[2023-03-19] MEDS ORDERED: POTASSIUM PHOS 3 MMOL/1 ML INFUSION IV STA (12:29)
[2023-03-19 12:36] LABS: RBC Urine Automated 0-4 /hpf (0-4)
--- NOTE | 2023-03-19 12:39 | Electrocardiogram Report ---
Test Reason : Blood Pressure : / mmHG Vent. Rate : 144 BPM Atrial Rate : 000 BPM P-R Int : 000 ms QRS Dur : 122 ms QT Int : 314 ms P-R-T Axes : 000 -68 103 degrees QTc Int : 486 ms Poor data quality, interpretation may be adversely affected Probable Sinus tachycardia Left axis deviation Left bundle branch block Abnormal ECG When compared with ECG of 10-FEB-2022 11:19, Vent. rate has increased BY 65 BPM Confirmed by Blaise Chambers ([id number]) on 03/19/2023 12:39:09 PM Referred By: Confirmed By:Blaise Chambers
[2023-03-19] MEDS ORDERED: MAGNESIUM SULFATE / D5W 1 GM/100 ML BAG IV ONE (12:45)
[2023-03-19] MEDS ORDERED: POTASSIUM PHOSPHATE 6 MMOL in 0.9 % SODIUM CHLORIDE 100 ML IV ONE ×2 (13:15→17:30)
[2023-03-19] MEDS ORDERED: ACETAMINOPHEN 325 MG TAB PO PRN (14:24)
[2023-03-19] MEDS ORDERED: PNEUMOCOCCAL VACCINE (PCV20) 20-VAL CONJ-DIP CRM/PF 0.5 ML SYR IM ONE (15:03)
[2023-03-19] MEDS ORDERED: INFLUENZA VIRUS QUADRIVALENT VACCINE (IIV4) 0.5 ML SYR IM ONE (15:03)
[2023-03-19 15:15] LABS: Base Excess VBG -1.5 mEq/L; HCO3 VBG 24 mmol/L; Oxygen Saturation VBG 86.8 %; PCO2 VBG 44 mmHg (38-50); PO2 VBG 56 mmHg; pH VBG 7.35 (7.36-7.41)
[2023-03-19] MEDS: PLASMA-LYTE A 1,000 ML IV SCH (15:16)
[2023-03-19] MEDS: DOXYCYCLINE HYCLATE 100 MG in DEXTROSE 5% MINI-B 100 ML IV SCH (16:01)
[2023-03-19] MEDS: PIPERACILLIN/TAZOBACTAM 4.5 GM in DEXTROSE 5% MINI-B 100 ML IV SCH (17:16)
[2023-03-19] MEDS: SODIUM CHLOR 7% 4 ML NEB NEB SCH (19:48)
[2023-03-19] MEDS: LEVALBUTEROL 1.25 MG/3 ML NEB NEB PRN (19:48)
[2023-03-19 20:00] LABS: HCO3 VBG 28 mmol/L; PCO2 VBG 47 mmHg (38-50); PO2 VBG 75 mmHg; pH VBG 7.38 (7.36-7.41)
[2023-03-19] MEDS: guaiFENesin 600 MG TABCR PO SCH (21:15)
[2023-03-19] MEDS: HEPARIN SOD 5,000 UNIT/0.5 ML VIAL SQ SCH (21:16)
[2023-03-19 23:20] LABS: Base Excess VBG 3.2 mEq/L; HCO3 VBG 31 mmol/L; Oxygen Saturation VBG 65.3 %; PCO2 VBG 58 mmHg (38-50); PO2 VBG 39 mmHg; pH VBG 7.33 (7.36-7.41)
[2023-03-20] MEDS: PIPERACILLIN/TAZOBACTAM 4.5 GM in DEXTROSE 5% MINI-B 100 ML IV SCH ×4 (00:01→23:19)
[2023-03-20] MEDS: PLASMA-LYTE A 1,000 ML IV SCH ×2 (01:25→12:53)
[2023-03-20] MEDS: ACETAMINOPHEN 650 MG/65 ML VIAL IV PRN (01:44)
[2023-03-20] MEDS: DOXYCYCLINE HYCLATE 100 MG in DEXTROSE 5% MINI-B 100 ML IV SCH ×2 (01:50→13:45)
[2023-03-20 03:29] LABS: Base Excess VBG 3.7 mEq/L; HCO3 VBG 31 mmol/L; Oxygen Saturation VBG < 60.0 %; PCO2 VBG 54 mmHg (38-50); PO2 VBG 33 mmHg; pH VBG 7.36 (7.36-7.41)
[2023-03-20 04:06] LABS: Anion Gap 4 (3-11); BUN Creatinine Ratio 27.3 (10-20); Blood Urea Nitrogen 6 mg/dl (6-23); Calcium 8.4 mg/dl (8.6-10.3); Carbon Dioxide 28 mmol/L (21-32); Chloride 107 mmol/L (98-107); Creatinine Clr Calc Pharmacy 197.1 ml/min; Est GFR (African American) > 150.0 ml/min; Est GFR (Non-African American) > 150.0 ml/min; Glucose 125 mg/dl (70-99(Fasting)); Potassium 3.4 mmol/L (3.5-5.1); Sodium 139 mmol/L (136-145)
[2023-03-20 04:07] LABS: Basophils # (auto) 0.02 K/uL (0.00-0.20); Basophils % (auto) 0.3 %; Hematocrit (blood only) 26.8 % (37.0-47.0); Hemoglobin 7.8 g/dl (12.0-16.0); Hypochromasia Present; Immature Granulocytes # (auto) 0.03 K/uL (0.01-0.20); Immature Granulocytes % (auto) 0.5 %; Lymphocytes # (auto) 1.34 K/uL (1.20-3.40); Lymphocytes % (auto) 20.6 %; Mean Corpuscular Hemoglobin 21.7 pg (25.0-34.0); Mean Corpuscular Hgb Conc 29.1 g/dL (32.0-36.0); Mean Corpuscular Volume 74.4 fL (80.0-100.0); Monocytes # (auto) 0.51 K/uL (0.11-0.59); Monocytes % (auto) 7.8 %; Neutrophils % (auto) 70.8 %; Platelet Count 291 K/uL (130-400); RDW Coefficient of Variation 15.8 % (11.5-14.5); RDW Standard Deviation 42.9 fL (36.4-46.3)
[2023-03-20] MEDS: POTASSIUM CHLORIDE / WTR 10 MEQ/100 ML PLCT IV SCH ×3 (04:59→08:34)
[2023-03-20] MEDS: LEVALBUTEROL 1.25 MG/3 ML NEB NEB PRN ×2 (07:13→19:56)
[2023-03-20] MEDS: SODIUM CHLOR 7% 4 ML NEB NEB SCH ×2 (07:13→19:56)
[2023-03-20] MEDS: methylPREDNISolone 40 MG in SYRINGE 0 ML IV SCH (08:38)
[2023-03-20] MEDS: HEPARIN SOD 5,000 UNIT/0.5 ML VIAL SQ SCH ×2 (08:40→20:01)
[2023-03-20] MEDS: UMECLIDINIUM/VILANTEROL 62.5/25MCG 7 PUFFS/INHALER INH SCH (08:41)
--- NOTE | 2023-03-20 08:52 | Hospitalist Progress Note ---
Date of Service March 20, 2023 Assessment & Plan (1) Acute respiratory failure with hypoxia: Plan: Acute hypoxic respiratory failure, aspiration with COPD exacerbation, suspected mucous plugging. Followed by [facility] pulm, most recent note indicated patient's alpha-1 antitrypsin level within normal limits.( Phenotype PI*MM, Normal) Septic on admission w/ reported fever, leukocytosis, tachycardic to 124bpm, suspected pulmonary source w chronic aspiration s/p 1500cc bolus on admission (approx 40kg patient/met 30cc/kg sepsis recs) CT chest w/ evidence of chronic aspiration and progressive opacification of left inferior lobe. Suspected mucous plug, endobronchial lesion not excluded. Continues on IV Zosyn/Doxy IV MRSA nares NEGATIVE Methylprednisolone 40mg IV daily Pulmonary toilet -- nebs as needed, hypertonic saline to help with mucus plugging, incentive spirometer/flutter valve, sputum cx as able to produce. 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 * Discussed with patient given prior review of speech consultation w/ patient UNABLE TO tolerate any PO/continued aspiration w/ any bolus despite patient not having PEG/J tube for >1 year and reporting eating rice crispy cereal/mashed potatoes at home and wanting to eat. Discussion w/ allowance of permissive aspiration/speech consultation/oral care and will monitor * Speech consult placed, assistant project manager consulted. * Will keep medications IV as allows in meantime, added pepcid IV BID for reflux Patient wanting to consider PICC line, however discussed only temporary solution/risks. Wants to be FULL code. Palliative consulted as does not seem to be reasonable, needs goals of care further discussed (2) Dysphagia: Plan: Recurrent aspiration, history of achalasia and dysphagia With additional history of bronchiectasis 2/2 chronic aspiration pneumonia right greater than left. Patient uses flutter valve at home. Videofluoroscopy 01/2022 with continued tracheal aspiration. Patient was seen by [facility] in 2019, motility study consistent with achalasia and s/p myotomy PEG tube removed 2020. Permanent aspiration risk, patient has declined PEG/J- tube's after removal in 2020 on follow-up and does not wish to be replaced under any circumstances Patulous esophagus re-demonstrated on CT, no change from prior * There is atelectasis of the right middle and lower lobes and the left lower lobe, progressed from prior exam. Bronchial wall thickening in the right lower lobe may reflect infectious/inflammatory process. The same is likely a true of the left, however follow-up to resolution is recommended to exclude endobronchial lesion. Due to acute hypoxia suspicion w/ baseline aspiration will keep n.p.o. at this time. --> IVFM, nutrition consulted Prior speech eval 2021 noting aspiration of ALL bolus, patient accepted risk of permissive aspiration/declined repeat PEG/J-tube placement (patient confirmed this) Economic History Teacher consulted for malnutrition, supplementation -- see above. Prior PCP noting patient also would not want feeing tube going forward consider consultation w/ palliative care for goals of care moving forward -- consult placed (3) Anemia: Plan: Chronic anemia, hx transfusions Hgb 7.8 (multiple boluses on admission), however will repeat to ensure true value MCV 74.4, checking iron panel/ferritin/b12/folate for completeness. Also checking Vitamin D given elevated calcium on admission as well/prior level 7 Noting PCP reporting hx abnormal uterine bleeding/uterine fibroids that reportedly resolved/was on iron supplementation in the past. Repeat CBC w/ hgb to 8.3 from 7.8 this morning, ?error, dilutional from IVF. No abdominal pain reported/bleeding Venofer as above for replacement, will add fecal occult as well As above, prior endometrial thickening in patient w/ severe malnutrition/wasting -- consider underlying malignancy (4) Severe protein-calorie malnutrition: Plan: BMI 15, weight 39.7kg. Poor nutrition status at baseline 2nd to dysphagia/achalasia at baseline Chronic aspiration, speech consult deferred as likely to have had no interval change --> placed given patient WANTING TO CONTINUE TO EAT FOR DOCUMENTATION PURPOSES - Discussed recurrent aspiration with pt, she is clear she does not wish to have a repeat PEG tube even if this prevented/reduced aspiration events and complications. ?TPN is an alternative, but would require line placement & w/ high infection risk -- nutrition consulted while inpatient as well as palliative for goals of care (5) COPD exacerbation: Plan: COPD Home Anoro continued PFTs 2021: Severe obstructive lung dysfunction with bronchodilator response, mildly decreased DLCO. Management of acute exacerbation as above (6) Aspiration pneumonia: Plan: - Abx/tx as noted, aspiration precautions, speech consulted as above as well as nutrition (7) LBBB (left bundle branch block): Plan: Sinus tachycardia with left bundle branch block - EKG as above, no acute ischemic change. Patient had some pain with coughing, but denied any chest pain at rest. She endorses weakness, but outside of this has not had chest pain or chest pressure with exertion Reactive to volume depletion and pulmonary disease, treated as above. No indication at this time for rate control. Optimize magnesium 2.0/K 4.0 - trop wnl (8) Marijuana abuse: Plan: Marijuana use, former tobacco use Marijuana cessation recommended [id number] smoking history in remission since 2019 Plan DVT PPx: Heparin SQ diet ordered as patient accepting permissive aspiration, speech consulted, palliative for goals of care given ability to provide nutrition/risks w/ PICC line for such (patient declined PEG/J tube, also port but wanting IV access for nutrition as well as continued diet). Significant other at bedside. Admission and Anticipated Discharge Date Admission Date: March 19, 2023 Subjective Patient evaluated this morning, boyfriend at bedside. Reports having seen GI in follow up but was taking PO and wanted tube removed and he removed it in the office. She endorses she does NOT want it replaced and they watch what she eats. Notes that she was seen by speech last admission and did not have good interaction and was told she CANNOT eat, despite ongoing eating mashed potatoes/etc. She is short of breath/nose dry, humidification to oxygen. She would want CPR/intubation if coded. Discussed port for TPN/parenteral nutrition, they would NOT want a port, but ok w/ IV access for nutrition despite discussing short term nature. Will allow to eat diet/maintain aspiration precautions at present time. No sputum production, but improvement in O2 use with use and will be continued. Physical Exam Physical Exam: General: frail, cachectic female sitting up in bed, signifiant other at bedside, ashy color/fatigued appearing, generalized muscle wasting/atrophy noted HEENT: atraumatic, normocephalic, mm dry resp: no tachypnea/audible wheezing but coarse breath sounds bilaterally, faint exp wheezing, on supplemental oxygen CV: regular rate/rhtyhm, no significant m/r/g, no pitting edema/calf tenderness GI: +BS, scaphoid/nontender, prior scar from PEG tube LUQ : no layne MSK/Neuro: following commands, generalized weakness but nonfocal, answering questions appropriately w/ oral secretions noted Ext: thin/generalized muscle atrophy Results & Data Results & Data Vital Signs (Past 12 Hours) Vital Signs Temp Pulse Pulse Resp BP BP Pulse Ox 03/20/23 07:22 36.4 C L 70 19 96/59 L 99 03/20/23 07:13 72 18 100 03/20/23 04:20 36.6 C 64 18 92/58 L 99 03/20/23 00:30 03/20/23 00:17 36.4 C L 77 18 93/60 L 98 03/19/23 23:00 82 O2 Del Method O2 Flow Rate 03/20/23 07:22 Nasal Cannula 03/20/23 07:13 Nasal Cannula 2 03/20/23 04:20 Nasal Cannula 2 03/20/23 00:30 Nasal Cannula 03/20/23 00:17 Room Air, Oxymask 2 03/19/23 23:00 Laboratory Results 03/20/23 03/20/23 03/20/23 Range/Units Unknown 09:07 03:09 WBC 5.69 6.50 (4.8-10.8) K/ul RBC 3.89 L 3.60 L (4.20-5.40) M/uL Hgb 8.3 L 7.8 L D (12.0-16.0) g/dl Hct 28.5 L 26.8 L (37.0-47.0) % MCV 73.3 L 74.4 L (80.0-100.0) fL MCH 21.3 L 21.7 L (25.0-34.0) pg MCHC 29.1 L 29.1 L (32.0-36.0) g/dL RDW Std Deviation 42.7 42.9 (36.4-46.3) fL RDW Coeff of Abhishek 16.1 H 15.8 H (11.5-14.5) % Plt Count 302 291 (130-400) K/uL MPV 10.0 10.0 (9.4-12.4) fL Immature Gran % (Auto) 0.5 % Neut % (Auto) 70.8 % Lymph % (Auto) 20.6 % [place] % (Auto) 7.8 % Eos % (Auto) 0.0 % Baso % (Auto) 0.3 % Neut # (Auto) 4.60 (1.40-6.50) K/uL Lymph # (Auto) 1.34 (1.20-3.40) K/uL [place] # (Auto) 0.51 (0.11-0.59) K/uL Eos # (Auto) 0.00 (0.00-0.50) K/uL Baso # (Auto) 0.02 (0.00-0.20) K/uL Immature Gran # (Auto) 0.03 (0.01-0.20) K/uL Hypochromasia Present VBG pH 7.36 (7.36-7.41) VBG pCO2 54 H (38-50) mmHg VBG pO2 33 mmHg VBG HCO3 31 mmol/L VBG O2 Saturation < 60.0 % VBG Base Excess 3.7 mEq/L Sodium 139 (136-145) mmol/L Potassium 3.4 L (3.5-5.1) mmol/L Chloride 107 (98-107) mmol/L Carbon Dioxide 28 (21-32) mmol/L Anion Gap 4 (3-11) BUN 6 (6-23) mg/dl Creatinine 0.22 L (0.6-1.2) mg/dl Est Cr Clr Drug Dosing 197.1 ml/min Est GFR ( Amer) > 150.0 ml/min Est GFR (Non-Af Amer) > 150.0 ml/min BUN/Creatinine Ratio 27.3 H (10-20) Glucose 125 H (70-99(Fasting)) mg/dl Lactate (0.4-2.0) mmol/L Calcium 8.4 L D (8.6-10.3) mg/dl Magnesium 2.1 (1.7-2.4) mg/dl Iron < 10 L (35-150) mcg/dl TIBC TNP Unsaturated IBC 311 (155-355) mcg/dl Transferrin % Sat TNP Ferritin 4.4 L (8-388) ng/ml Vitamin B12 572 (180-914) pg/ml 25-OH Vitamin D Total 12.1 L (30-100) ng/ml Folate 7.27 (>5.38) ng/ml Nasal Screen MRSA (PCR) Negative (Negative) 03/19/23 03/19/23 03/19/23 Range/Units 23:09 19:50 15:00 WBC (4.8-10.8) K/ul RBC (4.20-5.40) M/uL Hgb (12.0-16.0) g/dl Hct (37.0-47.0) % MCV (80.0-100.0) fL MCH (25.0-34.0) pg MCHC (32.0-36.0) g/dL RDW Std Deviation (36.4-46.3) fL RDW Coeff of Abhishek (11.5-14.5) % Plt Count (130-400) K/uL MPV (9.4-12.4) fL Immature Gran % (Auto) % Neut % (Auto) % Lymph % (Auto) % [place] % (Auto) % Eos % (Auto) % Baso % (Auto) % Neut # (Auto) (1.40-6.50) K/uL Lymph # (Auto) (1.20-3.40) K/uL [place] # (Auto) (0.11-0.59) K/uL Eos # (Auto) (0.00-0.50) K/uL Baso # (Auto) (0.00-0.20) K/uL Immature Gran # (Auto) (0.01-0.20) K/uL Hypochromasia VBG pH 7.33 L 7.38 7.35 L (7.36-7.41) VBG pCO2 58 H 47 44 (38-50) mmHg VBG pO2 39 75 56 mmHg VBG HCO3 31 28 24 mmol/L VBG O2 Saturation 65.3 97.0 86.8 % VBG Base Excess 3.2 2.0 -1.5 mEq/L Sodium (136-145) mmol/L Potassium (3.5-5.1) mmol/L Chloride (98-107) mmol/L Carbon Dioxide (21-32) mmol/L Anion Gap (3-11) BUN (6-23) mg/dl Creatinine (0.6-1.2) mg/dl Est Cr Clr Drug Dosing ml/min Est GFR ( Amer) ml/min Est GFR (Non-Af Amer) ml/min BUN/Creatinine Ratio (10-20) Glucose (70-99(Fasting)) mg/dl Lactate 1.6 (0.4-2.0) mmol/L Calcium (8.6-10.3) mg/dl Magnesium (1.7-2.4) mg/dl Iron (35-150) mcg/dl TIBC Unsaturated IBC (155-355) mcg/dl Transferrin % Sat Ferritin (8-388) ng/ml Vitamin B12 (180-914) pg/ml 25-OH Vitamin D Total (30-100) ng/ml Folate (>5.38) ng/ml Nasal Screen MRSA (PCR) (Negative) Diagnostic Findings Chest X-Ray 03/19/23 09:16 XR chest 1V portable CLINICAL HISTORY: Sepsis TECHNIQUE: Single frontal radiograph of the chest was obtained. Comparison: Comparison is made to chest radiograph 11/28/2022 FINDINGS: No lines and tubes are seen. The cardiomediastinal silhouette is normal. The lungs are clear. No evidence of pleural effusion or pneumothorax. IMPRESSION: No acute abnormalities and in particular no radiographic evidence of pneumonia. ACT 112: Negative or not required by law. Electronically signed by: Timoteo Beckman M.D. 03/19/2023 9:57 AM Chest CTA 03/19/23 10:50 CT angio chest PE protocol CLINICAL HISTORY: PE TECHNIQUE: Multidetector row helical CT of the chest was performed with angiogra [facility] protocol. Coronal and sagittal reformations were obtained. Coronal and sagittal MIPS were obtained from the axial data set and were submitted for review. Automated dose lowering techniques and/or adjustment according to patient size were utilized for this exam. CT DOSE: 271.09 mGy.cm Comparison: Comparison is made to CTA chest 04/28/2019 FINDINGS: Lungs and pleura: Atelectasis of the right middle and bilateral lower lobes are seen. Bronchial wall thickening is seen on the right with abrupt cut off of the left lower lobe bronchus. There is a 3 mm groundglass nodule in the right upper lobe (series 4 image 162). Heart and pericardium: Heart size is normal. No pericardial effusion. Vessels: No evidence of pulmonary embolism. Mediastinum and jones: No lymphadenopathy. Patulous esophagus is again seen. Chest wall and lower neck: Unremarkable. Abdomen: Unremarkable. Bones: Unremarkable. IMPRESSION: 1. No pulmonary embolus. 2. There is atelectasis of the right middle and lower lobes and the left lower lobe, progressed from prior exam. Bronchial wall thickening in the right lower lobe may reflect infectious/inflammatory process. The same is likely a true of the left, however follow-up to resolution is recommended to exclude endobronchial lesion. 3. Patulous esophagus. ACT 112: Negative or not required by law. Electronically signed by: Timoteo Beckman M.D. 03/19/2023 11:57 AM PG Care Time/CCT Total # of Minutes Spent Total Time Spent with Patient: Total time spent is greater than 50% in coordination of care (as documented) at patient's floor/unit and/or counseling patient: Coding Level of Care Code 88907 SUB INP/OBS CARE 3/50MIN Diagnoses Acute respiratory failure with hypoxia J96.01 Dysphagia R13.10 Anemia D64.9 Severe protein-calorie malnutrition E43 COPD exacerbation J44.1 Aspiration pneumonia J69.0 LBBB (left bundle branch block) I44.7 Marijuana abuse F12.10
[2023-03-20 09:30] LABS: Hematocrit (blood only) 28.5 % (37.0-47.0); Hemoglobin 8.3 g/dl (12.0-16.0); Mean Corpuscular Hemoglobin 21.3 pg (25.0-34.0); Mean Corpuscular Hgb Conc 29.1 g/dL (32.0-36.0); Mean Corpuscular Volume 73.3 fL (80.0-100.0); Platelet Count 302 K/uL (130-400); RDW Coefficient of Variation 16.1 % (11.5-14.5); RDW Standard Deviation 42.7 fL (36.4-46.3); Red Blood Count 3.89 M/uL (4.20-5.40); White Blood Count 5.69 K/ul (4.8-10.8)
[2023-03-20 09:48] LABS: Iron < 10 mcg/dl (35-150); Magnesium 2.1 mg/dl (1.7-2.4); Unsaturated Iron Binding Cap 311 mcg/dl (155-355)
[2023-03-20 10:07] LABS: Ferritin 4.4 ng/ml (8-388)
[2023-03-20 10:13] LABS: Folate (Folic Acid),Ser orPlas 7.27 ng/ml (>5.38)
[2023-03-20] MEDS ORDERED: ERGOCALCIFEROL 50,000 UNITS 1250 MCG CAP PO SCH (11:00)
[2023-03-20] MEDS: IRON SUCROSE 200 MG in 0.9 % SODIUM CHLORIDE 100 ML IV SCH (12:05)
[2023-03-20] MEDS: guaiFENesin 600 MG TABCR PO SCH ×2 (12:51→19:51)
[2023-03-20] MEDS: FAMOTIDINE 20 MG in SYRINGE 3 ML IV SCH ×2 (13:43→20:03)
[2023-03-20] MEDS ORDERED: ONDANSETRON INJ 2 MG/ML 2 ML VIAL IV PRN (13:56)
[2023-03-20] MEDS ORDERED: DEXTROSE 10% 1,000 ML IV PRN (14:42)
[2023-03-20] MEDS ORDERED: TPN/PPN CONSULT PHARMACY PRN (14:56)
[2023-03-20] MEDS ORDERED: SODIUM CHLORIDE 0.9% 250 ML IV ONE (17:54)
[2023-03-20] MEDS: D5NSS + 20MEQ KCL 20 MEQ/1,000 ML BAG IV SCH (20:03)
[2023-03-21] MEDS: DOXYCYCLINE HYCLATE 100 MG in DEXTROSE 5% MINI-B 100 ML IV SCH ×2 (02:48→14:54)
[2023-03-21] MEDS: ACETAMINOPHEN 650 MG/65 ML VIAL IV PRN ×2 (04:45→18:26)
[2023-03-21 06:40] LABS: Basophils # (auto) 0.03 K/uL (0.00-0.20); Basophils % (auto) 0.4 %; Eosinophils # (auto) 0.01 K/uL (0.00-0.50); Eosinophils % (auto) 0.1 %; Hematocrit (blood only) 27.4 % (37.0-47.0); Hemoglobin 8.1 g/dl (12.0-16.0); Immature Granulocytes # (auto) 0.03 K/uL (0.01-0.20); Immature Granulocytes % (auto) 0.4 %; Lymphocytes # (auto) 1.85 K/uL (1.20-3.40); Lymphocytes % (auto) 25.9 %; Mean Corpuscular Hemoglobin 21.6 pg (25.0-34.0); Mean Corpuscular Hgb Conc 29.6 g/dL (32.0-36.0); Mean Corpuscular Volume 73.1 fL (80.0-100.0); Mean Platelet Volume 9.8 fL (9.4-12.4); Monocytes # (auto) 0.41 K/uL (0.11-0.59); Monocytes % (auto) 5.7 %; Neutrophils # (auto) 4.82 K/uL (1.40-6.50); Neutrophils % (auto) 67.5 %; Platelet Count 318 K/uL (130-400); RDW Coefficient of Variation 15.9 % (11.5-14.5); RDW Standard Deviation 42.1 fL (36.4-46.3); Red Blood Count 3.75 M/uL (4.20-5.40); White Blood Count 7.15 K/ul (4.8-10.8)
[2023-03-21 06:56] LABS: Anion Gap 2 (3-11); BUN Creatinine Ratio 11.8 (10-20); Blood Urea Nitrogen 4 mg/dl (6-23); Calcium 8.7 mg/dl (8.6-10.3); Carbon Dioxide 29 mmol/L (21-32); Chloride 108 mmol/L (98-107); Est GFR (African American) > 150.0 ml/min; Est GFR (Non-African American) 130.8 ml/min; Glucose 103 mg/dl (70-99(Fasting)); Potassium 3.9 mmol/L (3.5-5.1); Sodium 139 mmol/L (136-145)
[2023-03-21] MEDS: SODIUM CHLOR 7% 4 ML NEB NEB SCH ×2 (07:16→19:32)
[2023-03-21 07:33] LABS: Phosphorus < 1.0 mg/dl (2.5-4.9)
[2023-03-21] MEDS ORDERED: SODIUM PHOSPHATE 24 MMOL in SODIUM CHLORIDE 0.9% 500 ML IV ONE (08:00)
--- NOTE | 2023-03-21 08:18 | Electrocardiogram Report ---
Test Reason : Blood Pressure : / mmHG Vent. Rate : 127 BPM Atrial Rate : 000 BPM P-R Int : 000 ms QRS Dur : 126 ms QT Int : 362 ms P-R-T Axes : 000 -68 094 degrees QTc Int : 526 ms Probable Sinus tachycardia Left axis deviation Left bundle branch block Abnormal ECG When compared with ECG of 19-MAR-2023 09:10, HR has decreased by 17 bpm Otherwise no significant change Confirmed by Randall Benavides ([id number]) on 03/21/2023 8:18:31 AM Referred By: REFERRED SELF Confirmed By:Randall Benavides
[2023-03-21] MEDS ORDERED: SODIUM PHOSPHATE 3 MMOL/1 ML 5 ML VIAL IV SCH (09:00)
[2023-03-21] MEDS: D5NSS + 20MEQ KCL 20 MEQ/1,000 ML BAG IV SCH ×2 (09:30→20:47)
[2023-03-21] MEDS: methylPREDNISolone 40 MG in SYRINGE 0 ML IV SCH (10:14)
[2023-03-21] MEDS: PIPERACILLIN/TAZOBACTAM 4.5 GM in DEXTROSE 5% MINI-B 100 ML IV SCH ×3 (10:14→23:16)
[2023-03-21] MEDS: UMECLIDINIUM/VILANTEROL 62.5/25MCG 7 PUFFS/INHALER INH SCH (10:16)
[2023-03-21] MEDS: HEPARIN SOD 5,000 UNIT/0.5 ML VIAL SQ SCH ×2 (10:16→20:46)
[2023-03-21] MEDS: guaiFENesin 600 MG TABCR PO SCH ×2 (10:17→21:01)
[2023-03-21] MEDS: IRON SUCROSE 200 MG in 0.9 % SODIUM CHLORIDE 100 ML IV SCH (12:35)
[2023-03-21] MEDS: FAMOTIDINE 20 MG in SYRINGE 3 ML IV SCH ×2 (12:35→21:00)
--- NOTE | 2023-03-21 14:51 | Hospitalist Progress Note ---
Date of Service March 21, 2023 Assessment & Plan (1) Acute respiratory failure with hypoxia: Plan: Acute hypoxic respiratory failure, aspiration with COPD exacerbation, suspected mucous plugging. Followed by [facility] pulm, most recent note indicated patient's alpha-1 antitrypsin level within normal limits.( Phenotype PI*MM, Normal) Septic on admission w/ reported fever, leukocytosis, tachycardic to 124bpm, suspected pulmonary source w chronic aspiration s/p 1500cc bolus on admission (approx 40kg patient/met 30cc/kg sepsis recs) CT chest w/ evidence of chronic aspiration and progressive opacification of left inferior lobe. Suspected mucous plug, endobronchial lesion not excluded. Continues on IV Zosyn/Doxy IV MRSA nares NEGATIVE Methylprednisolone 40mg IV daily Pulmonary toilet -- nebs as needed, hypertonic saline to help with mucus plugging, incentive spirometer/flutter valve, sputum cx as able to produce. 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 * Discussed with patient given prior review of speech consultation w/ patient UNABLE TO tolerate any PO/continued aspiration w/ any bolus despite patient not having PEG/J tube for >1 year and reporting eating rice crispy cereal/mashed potatoes at home and wanting to eat. Discussion w/ allowance of permissive aspiration/speech consultation/oral care and will monitor * Speech consult placed, tactical/mobile watch officer consulted. * Will keep medications IV as allows in meantime, added pepcid IV BID for reflux Patient Wants to be FULL code. Palliative consulted as does not seem to be reasonable, needs goals of care further discussed (2) Dysphagia: Plan: Recurrent aspiration, history of achalasia and dysphagia With additional history of bronchiectasis 2/2 chronic aspiration pneumonia right greater than left. Patient uses flutter valve at home. Videofluoroscopy 01/2022 with continued tracheal aspiration. Patient was seen by [facility] in 2019, motility study consistent with achalasia and s/p myotomy PEG tube removed 2020. Permanent aspiration risk, patient has declined PEG/J- tube's after removal in 2020 on follow-up and does not wish to be replaced under any circumstances Patulous esophagus re-demonstrated on CT, no change from prior * There is atelectasis of the right middle and lower lobes and the left lower lobe, progressed from prior exam. Bronchial wall thickening in the right lower lobe may reflect infectious/inflammatory process. The same is likely a true of the left, however follow-up to resolution is recommended to exclude endobronchial lesion. Due to acute hypoxia suspicion w/ baseline aspiration will keep n.p.o. at this time. --> IVFM, nutrition consulted Prior speech eval 2021 noting aspiration of ALL bolus, patient accepted risk of permissive aspiration/declined repeat PEG/J-tube placement (patient confirmed this) Derrickman Helper consulted for malnutrition, supplementation -- see above. Prior PCP noting patient also would not want feeing tube going forward Awaiting palliative care evaluation and recommendations (3) Anemia: Plan: Chronic anemia, hx transfusions (4) Severe protein-calorie malnutrition: Plan: BMI 15, weight 39.7kg. Poor nutrition status at baseline 2nd to dysphagia/ach alasia at baseline Chronic aspiration, speech consult deferred as likely to have had no interval change --> placed given patient WANTING TO CONTINUE TO EAT FOR DOCUMENTATION PURPOSES - Discussed recurrent aspiration with pt, she is clear she does not wish to have a repeat PEG tube even if this prevented/reduced aspiration events and complications. ?TPN is an alternative, but would require line placement & w/ high infection risk -- nutrition consulted while inpatient as well as palliative for goals of care (5) COPD exacerbation: Plan: COPD Home Anoro continued PFTs 2021: Severe obstructive lung dysfunction with bronchodilator response, mildly decreased DLCO. Management of acute exacerbation as above (6) Aspiration pneumonia: Plan: - Abx/tx as noted, aspiration precautions, speech consulted as above as well as nutrition (7) LBBB (left bundle branch block): Plan: Sinus tachycardia with left bundle branch block - EKG as above, no acute ischemic change. Patient had some pain with coughing, but denied any chest pain at rest. She endorses weakness, but outside of this has not had chest pain or chest pressure with exertion Reactive to volume depletion and pulmonary disease, treated as above. No indication at this time for rate control. Optimize magnesium 2.0/K 4.0 - trop wnl (8) Marijuana abuse: Plan: Marijuana use, former tobacco use Marijuana cessation recommended [id number] smoking history in remission since 2018 Plan DVT PPx: Heparin SQ Admission and Anticipated Discharge Date Admission Date: March 19, 2023 Subjective Patient has achalasia and is chronically aspirating. She has had PEG tube in the past which was removed in 2020. She does not want the PEG tube back in place as she had a very poor quality of life with the PEG tube in place. She had reportedly accepted the risk of aspiration. However she is a full code. Patient is getting very emotional when I addressed her CODE STATUS. I spoke to her boyfriend on the phone. He agrees that she does not want a PEG tube back in place. Explained to the patient and the boyfriend that a PICC line with TPN is not a permanent solution. It will put her at a high risk of infection. Explained to her that she will need to speak to palliative care on Thursday. In the meantime, I will continue n.p.o. and IV fluids with electrolyte replacement. The patient is having difficulty managing her own secretions. After my encounter, she had another choking episode after which her sats dropped to the 70s and she was started on nonrebreather mask. She was suctioned by the nurse. Review of Systems Review of Systems: All systems reviewed & are unremarkable except as noted in Subjective Physical Exam Physical Exam: General: Awake, conversant, tearful. Cachectic with by temporal and intercostal muscle wasting. Heart: S1, S2/regular rate and rhythm, no murmur rubs or gallops Lungs: Rhonchorous breath sounds bilaterally. Normal effort Abdomen: Soft/nontender/nondistended. No hepatosplenomegaly Extremities: No clubbing/cyanosis. No edema Behavior: Appropriate, cooperative Results & Data Results & Data Vital Signs (Past 12 Hours) Vital Signs Temp Pulse Pulse Resp BP BP Pulse Ox 11/25/23 11:47 36.4 C L 82 17 106/66 96 03/21/23 08:00 63 03/21/23 07:31 36.6 C 74 15 103/65 94 03/21/23 07:16 66 18 99 03/21/23 03:09 36.6 C 75 18 99/64 L 95 O2 Del Method O2 Flow Rate 03/21/23 11:47 Nasal Cannula 4 03/21/23 08:00 03/21/23 07:31 Nasal Cannula 1 03/21/23 07:16 Nasal Cannula 3 03/21/23 03:09 Nasal Cannula 4 Laboratory Results Abnormal lab results 03/20/23 03/21/23 03/21/23 Range/Units 19:03 03:02 06:05 RBC 3.75 L (4.20-5.40) M/uL Hgb 8.1 L (12.0-16.0) g/dl Hct 27.4 L (37.0-47.0) % MCV 73.1 L (80.0-100.0) fL MCH 21.6 L (25.0-34.0) pg MCHC 29.6 L (32.0-36.0) g/dL RDW Coeff of Abhishek 15.9 H (11.5-14.5) % Chloride 108 H (98-107) mmol/L Anion Gap 2 L (3-11) BUN 4 L (6-23) mg/dl Creatinine 0.34 L (0.6-1.2) mg/dl Glucose 103 H (70-99(Fasting)) mg/dl POC Glucose 113 H 116 H (70-99) mg/dl Phosphorus < 1.0 L* D (2.5-4.9) mg/dl 03/21/23 Range/Units 13:10 RBC (4.20-5.40) M/uL Hgb (12.0-16.0) g/dl Hct (37.0-47.0) % MCV (80.0-100.0) fL MCH (25.0-34.0) pg MCHC (32.0-36.0) g/dL RDW Coeff of Abhishek (11.5-14.5) % Chloride (98-107) mmol/L Anion Gap (3-11) BUN (6-23) mg/dl Creatinine (0.6-1.2) mg/dl Glucose (70-99(Fasting)) mg/dl POC Glucose 130 H (70-99) mg/dl Phosphorus (2.5-4.9) mg/dl PG Care Time/CCT Total # of Minutes Spent Total Time Spent with Patient: Total time spent is greater than 50% in coordination of care (as documented) at patient's floor/unit and/or counseling patient: Coding Level of Care Code 98958 SUB INP/OBS CARE 2/35MIN Diagnoses Acute respiratory failure with hypoxia J96.01 Dysphagia R13.10 Anemia D64.9 Severe protein-calorie malnutrition E43 COPD exacerbation J44.1 Aspiration pneumonia J69.0 LBBB (left bundle branch block) I44.7 Marijuana abuse F12.10
[2023-03-21] MEDS ORDERED: [UNRECOGNIZED DRUG - OTHER] IV SCH (16:00)
[2023-03-21] MEDS ORDERED: PERIPHERAL TPN IV SCH (16:00)
[2023-03-21] MEDS: LEVALBUTEROL 1.25 MG/3 ML NEB NEB PRN (19:32)
[2023-03-21] MEDS ORDERED: MoRPHine SULFATE 2 MG/ML CARP IV STA (20:49)
[2023-03-22] MEDS: DOXYCYCLINE HYCLATE 100 MG in DEXTROSE 5% MINI-B 100 ML IV SCH ×2 (01:21→16:46)
[2023-03-22] MEDS: ACETAMINOPHEN 650 MG/65 ML VIAL IV PRN ×2 (04:08→18:23)
[2023-03-22] MEDS: LEVALBUTEROL 1.25 MG/3 ML NEB NEB PRN ×2 (07:32→19:18)
[2023-03-22] MEDS: SODIUM CHLOR 7% 4 ML NEB NEB SCH ×2 (07:32→19:17)
[2023-03-22 07:51] LABS: Hematocrit (blood only) 26.5 % (37.0-47.0); Hemoglobin 7.7 g/dl (12.0-16.0); Mean Corpuscular Hemoglobin 21.6 pg (25.0-34.0); Mean Corpuscular Hgb Conc 29.1 g/dL (32.0-36.0); Mean Corpuscular Volume 74.2 fL (80.0-100.0); Platelet Count 280 K/uL (130-400); RDW Coefficient of Variation 16.2 % (11.5-14.5); RDW Standard Deviation 43.8 fL (36.4-46.3); Red Blood Count 3.57 M/uL (4.20-5.40); White Blood Count 7.35 K/ul (4.8-10.8)
[2023-03-22 07:59] LABS: Anion Gap 2 (3-11); BUN Creatinine Ratio 5.7 (10-20); Blood Urea Nitrogen 2 mg/dl (6-23); Calcium 8.6 mg/dl (8.6-10.3); Carbon Dioxide 30 mmol/L (21-32); Chloride 110 mmol/L (98-107); Creatinine Clr Calc Pharmacy 135.8 ml/min; Est GFR (African American) > 150.0 ml/min; Est GFR (Non-African American) 129.6 ml/min; Glucose 101 mg/dl (70-99(Fasting)); Potassium 3.4 mmol/L (3.5-5.1); Sodium 142 mmol/L (136-145)
[2023-03-22 08:04] LABS: Alanine Aminotransferase 9 U/L (7-52); Alkaline Phosphatase 100 U/L (34-104); Aspartate Aminotransferase 15 U/L (13-39); Bilirubin,Total 0.3 mg/dl (0.2-1.0); Magnesium 1.8 mg/dl (1.7-2.4); Phosphorus < 1.0 mg/dl (2.5-4.9); Triglycerides 149 mg/dl (0-150)
[2023-03-22 08:09] LABS: Basophils # (auto) 0.03 K/uL (0.00-0.20); Basophils % (auto) 0.4 %; Eosinophils # (auto) 0.01 K/uL (0.00-0.50); Eosinophils % (auto) 0.1 %; Hypochromasia Present; Immature Granulocytes # (auto) 0.05 K/uL (0.01-0.20); Immature Granulocytes % (auto) 0.7 %; Lymphocytes # (auto) 2.27 K/uL (1.20-3.40); Lymphocytes % (auto) 30.9 %; Monocytes # (auto) 0.55 K/uL (0.11-0.59); Monocytes % (auto) 7.5 %; Neutrophils # (auto) 4.44 K/uL (1.40-6.50); Neutrophils % (auto) 60.4 %
[2023-03-22] MEDS ORDERED: POTASSIUM PHOS 3 MMOL/1 ML INFUSION IV STA (08:32)
[2023-03-22] MEDS ORDERED: POTASSIUM PHOSPHATE 40 MMOL in SODIUM CHLORIDE 0.9% 1,000 ML IV ONE (09:00)
[2023-03-22] MEDS: D5NSS + 20MEQ KCL 20 MEQ/1,000 ML BAG IV SCH ×2 (09:24→16:42)
[2023-03-22] MEDS: IRON SUCROSE 200 MG in 0.9 % SODIUM CHLORIDE 100 ML IV SCH (09:57)
[2023-03-22] MEDS: FAMOTIDINE 20 MG in SYRINGE 3 ML IV SCH ×2 (09:57→19:59)
[2023-03-22] MEDS: PIPERACILLIN/TAZOBACTAM 4.5 GM in DEXTROSE 5% MINI-B 100 ML IV SCH ×3 (09:57→23:42)
[2023-03-22] MEDS: methylPREDNISolone 40 MG in SYRINGE 0 ML IV SCH (09:58)
[2023-03-22] MEDS: HEPARIN SOD 5,000 UNIT/0.5 ML VIAL SQ SCH ×2 (09:59→19:59)
[2023-03-22] MEDS: UMECLIDINIUM/VILANTEROL 62.5/25MCG 7 PUFFS/INHALER INH SCH (09:59)
[2023-03-22] MEDS: guaiFENesin 600 MG TABCR PO SCH (10:24)
--- NOTE | 2023-03-22 11:06 | Communication Note ---
Date of Service: March 22, 2023 Brief conversation with patient about PEG. Doesn't sound like decision has been made. Will relay to the [facility] GI team tomorrow and have them decide with patient and family about PEG.
--- NOTE | 2023-03-22 13:52 | Hospitalist Progress Note ---
Date of Service March 22, 2023 Assessment & Plan (1) Acute respiratory failure with hypoxia: Plan: Acute hypoxic respiratory failure, aspiration with COPD exacerbation, suspected mucous plugging. Followed by [facility] pulm, most recent note indicated patient's alpha-1 antitrypsin level within normal limits.( Phenotype PI*MM, Normal) Septic on admission w/ reported fever, leukocytosis, tachycardic to 124bpm, suspected pulmonary source w chronic aspiration s/p 1500cc bolus on admission (approx 40kg patient/met 30cc/kg sepsis recs) CT chest w/ evidence of chronic aspiration and progressive opacification of left inferior lobe. Suspected mucous plug, endobronchial lesion not excluded. Continues on IV Zosyn/Doxy IV MRSA nares NEGATIVE Methylprednisolone 40mg IV daily Pulmonary toilet -- nebs as needed, hypertonic saline to help with mucus plugging, incentive spirometer/flutter valve, sputum cx as able to produce. ASpiration precautions to be maintained Supplemental O2 as needed to maintain sats Checked iron panel given hx GUERITA (also cannot r/o underlying endometrial lesion, was supposed to have [employer] f/u last admit, no bleeding reported at present time) --> Iron panel w/ severe deficiency with iron <10, unsat IBC 311, ferritin 4.4 --> Venofer 200mg IV daily while inpatient ordered (BPs low, wanting to prevent further drop) -- B12/folate wnl Prior elevated Ca >10s, vitamin D low -- repeated --> Vit D LOW 12.1, replacement ordered Continues on Plasma-lyte @ 80cc/hr for now, was NPO Monitor labs/oxygen use, suspect patient will NOT be able to maintain nutrition/PO. * Discussed with patient given prior review of speech consultation w/ patient UNABLE TO tolerate any PO/continued aspiration w/ any bolus despite patient not having PEG/J tube for >1 year and reporting eating rice crispy cereal/mashed potatoes at home and wanting to eat. * Speech consult placed, car pilot consulted. Patient remains n.p.o. * Will keep medications IV as allows in meantime, added pepcid IV BID for reflux Patient Wants to be FULL code. Palliative consulted as does not seem to be reasonable, needs goals of care further discussed (2) Dysphagia: Plan: Recurrent aspiration, history of achalasia and dysphagia With additional history of bronchiectasis 2/2 chronic aspiration pneumonia right greater than left. Patient uses flutter valve at home. Videofluoroscopy 01/2022 with continued tracheal aspiration. Patient was seen by [facility] in 2019, motility study consistent with achalasia and s/p myotomy PEG tube removed 2020. Permanent aspiration risk, patient has declined PEG/J- tube's after removal in 2020 on follow-up and does not wish to be replaced under any circumstances Patulous esophagus re-demonstrated on CT, no change from prior * There is atelectasis of the right middle and lower lobes and the left lower lobe, progressed from prior exam. Bronchial wall thickening in the right lower lobe may reflect infectious/inflammatory process. The same is likely a true of the left, however follow-up to resolution is recommended to exclude endobronchial lesion. Due to acute hypoxia suspicion w/ baseline aspiration will keep n.p.o. at this time. --> IVFM, nutrition consulted Today on 03/22, patient is leaning towards having the PEG tube placed as she does not have any other viable option. Consulted GI. She was informed that putting a PEG tube in place will address her nutritional status but she will still be at high risk of aspiration as she is not able to handle her own secretions. Prior speech eval 2021 noting aspiration of ALL bolus, patient accepted risk of permissive aspiration/declined repeat PEG/J-tube placement (patient confirmed this) Teacher Emotionally Impaired consulted for malnutrition, supplementation -- see above. Prior PCP noting patient also would not want feeing tube going forward Awaiting palliative care evaluation and recommendations Patient is having issues with aspiration. She is not able to manage her own secretions and is aspirating. She had an episode of choking yesterday for which she needed nonrebreather mask and suctioning temporarily. If this were to happen again, she may end up in respiratory failure. Spoke to cardiology nurse practitioner on- call In case she were to go into respiratory failure/arrest. (3) Anemia: Plan: Chronic anemia, hx transfusions (4) Severe protein-calorie malnutrition: Plan: BMI 15, weight 39.7kg. Poor nutrition status at baseline 2nd to dysphagia/achalasia at baseline Chronic aspiration, speech consult deferred as likely to have had no interval change --> placed given patient WANTING TO CONTINUE TO EAT FOR DOCUMENTATION PUR POSES Patient is now willing to consider having a PEG tube placed. GI consulted. (5) COPD exacerbation: Plan: COPD Home Anoro continued PFTs 2021: Severe obstructive lung dysfunction with bronchodilator response, mildly decreased DLCO. Management of acute exacerbation as above (6) Aspiration pneumonia: Plan: - Abx/tx as noted, aspiration precautions, speech consulted as above as well as nutrition (7) LBBB (left bundle branch block): Plan: Sinus tachycardia with left bundle branch block - EKG as above, no acute ischemic change. Patient had some pain with coughing, but denied any chest pain at rest. She endorses weakness, but outside of this has not had chest pain or chest pressure with exertion Reactive to volume depletion and pulmonary disease, treated as above. No in dication at this time for rate control. Optimize magnesium 2.0/K 4.0 - trop wnl (8) Marijuana abuse: Plan: Marijuana use, former tobacco use Marijuana cessation recommended 80-ydwe-adak smoking history in remission since 2018 Plan DVT PPx: Heparin SQ Admission and Anticipated Discharge Date Admission Date: March 19, 2023 Subjective patient says that she is very tired. When asked if she has decided on PEG tube placement, she answered saying "I do not have a choice. I will have to have it to be able to live". Review of Systems Review of Systems: All systems reviewed & are unremarkable except as noted in Subjective Physical Exam Physical Exam: General: Awake, conversant. Cachectic with by temporal and intercostal muscle wasting. Heart: S1, S2/regular rate and rhythm, no murmur rubs or gallops Lungs: Rhonchorous breath sounds bilaterally. Normal effort Abdomen: Soft/nontender/nondistended. No hepatosplenomegaly Extremities: No clubbing/cyanosis. No edema Behavior: Appropriate, cooperative Results & Data Results & Data Vital Signs (Past 12 Hours) Vital Signs Temp Pulse Resp BP Pulse Ox O2 Del Method O2 Flow Rate 03/22/23 11:51 36.4 C L 85 18 114/73 98 Room Air 03/22/23 11:41 94 03/22/23 07:59 36.7 C 66 16 93/57 L 99 Nasal Cannula 2 03/22/23 07:32 67 18 98 Nasal Cannula 3 03/22/23 02:27 36.4 C L 58 L 18 98/62 L 100 Nasal Cannula 3 PG Care Time/CCT Total # of Minutes Spent Total Time Spent with Patient: Total time spent is greater than 50% in coordination of care (as documented) at patient's floor/unit and/or counseling patient: Coding Level of Care Code 87401 SUB INP/OBS CARE 2/35MIN Diagnoses Acute respiratory failure with hypoxia J96.01 Dysphagia R13.10 Anemia D64.9 Severe protein-calorie malnutrition E43 COPD exacerbation J44.1 Aspiration pneumonia J69.0 LBBB (left bundle branch block) I44.7 Marijuana abuse F12.10
[2023-03-22] MEDS ORDERED: MoRPHine SULFATE 2 MG/ML CARP IV STA (20:25)
[2023-03-23] MEDS: DOXYCYCLINE HYCLATE 100 MG in DEXTROSE 5% MINI-B 100 ML IV SCH ×2 (03:13→15:16)
[2023-03-23] MEDS: D5NSS + 20MEQ KCL 20 MEQ/1,000 ML BAG IV SCH (05:52)
[2023-03-23] MEDS: LEVALBUTEROL 1.25 MG/3 ML NEB NEB PRN (07:14)
[2023-03-23] MEDS: SODIUM CHLOR 7% 4 ML NEB NEB SCH ×2 (07:14→19:40)
[2023-03-23 08:16] LABS: Anion Gap 4 (3-11); BUN Creatinine Ratio 5.9 (10-20); Blood Urea Nitrogen 2 mg/dl (6-23); Calcium 8.8 mg/dl (8.6-10.3); Carbon Dioxide 28 mmol/L (21-32); Chloride 109 mmol/L (98-107); Creatinine Clr Calc Pharmacy 129.5 ml/min; Est GFR (African American) > 150.0 ml/min; Est GFR (Non-African American) 130.8 ml/min; Glucose 91 mg/dl (70-99(Fasting)); Sodium 141 mmol/L (136-145)
[2023-03-23 08:22] LABS: Magnesium 1.6 mg/dl (1.7-2.4)
[2023-03-23] MEDS ORDERED: POTASSIUM PHOS 3 MMOL/1 ML INFUSION IV STA (08:35)
--- NOTE | 2023-03-23 08:39 | Hospitalist Progress Note ---
Date of Service March 23, 2023 Assessment & Plan (1) Acute respiratory failure with hypoxia: Plan: Acute hypoxic respiratory failure, aspiration with COPD exacerbation, suspected mucous plugging. Followed by [facility] pulm, most recent note indicated patient's alpha-1 antitrypsin level within normal limits.( Phenotype PI*MM, Normal) Septic on admission w/ reported fever, leukocytosis, tachycardia pulmonary source w acute aspiration pneumonia s/p 1500cc bolus on admission (approx 40kg patient/met 30cc/kg sepsis recs) CT chest w/ evidence of chronic aspiration and progressive opacification of left inferior lobe. Suspected mucous plug, endobronchial lesion not excluded. Continues on IV Zosyn/Doxy IV MRSA nares NEGATIVE Methylprednisolone 40mg IV daily Pulmonary toilet -- nebs as needed, hypertonic saline to help with mucus plugging, incentive spirometer/flutter valve, sputum cx as able to produce. ASpiration precautions to be maintained (2) Dysphagia: Plan: Recurrent aspiration, history of achalasia and dysphagia Patient was seen by [facility] in 2019, motility study consistent with achalasia and s/p myotomy PEG tube removed 2020. Permanent aspiration risk, patient has declined PEG/J- tube's after removal in 2020 on follow-up and does not wish to be replaced under any circumstances Patulous esophagus re-demonstrated on CT, no change from prior Prior speech eval 2021 noting aspiration of ALL bolus, patient accepted risk of permissive aspiration/declined repeat PEG/J-tube placement (patient confirmed this) Portfolio Consultant consulted for malnutrition, supplementation --> Iron panel w/ severe deficiency with iron <10, unsat IBC 311, ferritin 4.4-> Venofer 200mg IV daily while inpatient ordered (BPs low, wanting to prevent further drop) -- B12/folate wnl, pending tsh, adding thiamine iv, vitamin D low cannot take po Continues on Plasma-lyte @ 80cc/hr for now, was NPO, cannot start ppn or tpn as phos remains very low continue parenteral repletion GI medicine recommended neurology evaluation for etiology of swallowing issue noted elevated protein in face of malnourishment , check electrophoresis and per discussion check mri brain and c spine (3) Anemia: Plan: Chronic anemia, hx transfusions, severely iron deficient and chronic disease from poor nutrition supplemented iv iron (4) Severe protein-calorie malnutrition: Plan: BMI 15, weight 39.7kg. Poor nutrition status at baseline 2nd to dysphagia/achalasia at baseline Chronic aspiration, speech consult deferred as likely to have had no interval change --> placed given patient WANTING TO CONTINUE TO EAT FOR DOCUMENTATION PURPOSES Patient is now willing to consider having a PEG tube placed. GI consulted. (5) COPD exacerbation: Plan: COPD Home Anoro continued PFTs 2021: Severe obstructive lung dysfunction with bronchodilator response, mildly decreased DLCO. Management of acute exacerbation as above (6) Aspiration pneumonia: Plan: - Abx/tx as noted, aspiration precautions, speech consulted as above as well as nutrition (7) LBBB (left bundle branch block): Plan: Sinus tachycardia with left bundle branch block - EKG as above, no acute ischemic change. Patient had some pain with coughing, but denied any chest pain at rest. She endorses weakness, but outside of this has not had chest pain or chest pressure with exertion Reactive to volume depletion and pulmonary disease, treated as above. No indication at this time for rate control. Optimize magnesium 2.0/K 4.0 - trop wnl (8) Marijuana abuse: Plan: Marijuana use, former tobacco use Marijuana cessation recommended [id number]-duta smoking history in remission since 2018 Plan DVT PPx: Heparin SQ Admission and Anticipated Discharge Date Admission Date: March 19, 2023 Subjective multiple discussions with patient, significant other and Gastroenterology regarding plans for how to approach nutrition in this patient, no clear cut good answer Physical Exam Physical Exam: pt has dysphonia, hot potato mouth, family says this is usually her voice lungs are clear cardiac is regular Results & Data Results & Data Vital Signs (Past 12 Hours) Vital Signs Temp Pulse Pulse Resp BP Pulse Ox O2 Del Method 03/23/23 07:45 97.9 F 85 19 100/65 92 Nasal Cannula 03/23/23 07:14 78 16 100 Nasal Cannula 03/23/23 03:04 97.7 F 61 16 103/72 98 Nasal Cannula 03/22/23 23:56 59 L O2 Flow Rate 03/23/23 07:45 1.0 03/23/23 07:14 3 03/23/23 03:04 2 03/22/23 23:56 Laboratory Results reviewed cbc reviewed chemistry and repeat phosphorous PG Care Time/CCT Total # of Minutes Spent Total Time Spent with Patient: Total time spent is greater than 50% in coordination of care (as documented) at patient's floor/unit and/or counseling patient: Coding Level of Care Code 46189 SUB INP/OBS CARE 3/50MIN Diagnoses Acute respiratory failure with hypoxia J96.01 Dysphagia R13.10 Anemia D64.9 Severe protein-calorie malnutrition E43 COPD exacerbation J44.1 Aspiration pneumonia J69.0 LBBB (left bundle branch block) I44.7 Marijuana abuse F12.10
[2023-03-23] MEDS ORDERED: POTASSIUM PHOSPHATE 21 MMOL in SODIUM CHLORIDE 0.9% 500 ML IV ONE (08:45)
[2023-03-23] MEDS: methylPREDNISolone 40 MG in SYRINGE 0 ML IV SCH (08:46)
[2023-03-23] MEDS: PIPERACILLIN/TAZOBACTAM 4.5 GM in DEXTROSE 5% MINI-B 100 ML IV SCH ×2 (08:46→15:16)
[2023-03-23] MEDS: HEPARIN SOD 5,000 UNIT/0.5 ML VIAL SQ SCH ×2 (08:47→20:08)
[2023-03-23] MEDS: UMECLIDINIUM/VILANTEROL 62.5/25MCG 7 PUFFS/INHALER INH SCH (08:47)
[2023-03-23] MEDS: IRON SUCROSE 200 MG in 0.9 % SODIUM CHLORIDE 100 ML IV SCH (08:56)
[2023-03-23] MEDS: FAMOTIDINE 20 MG in SYRINGE 3 ML IV SCH ×2 (08:56→20:08)
[2023-03-23] MEDS: MAGNESIUM SULFATE / D5W 1 GM/100 ML BAG IV SCH ×2 (09:09→12:08)
--- NOTE | 2023-03-23 09:46 | Palliative Care Consultation ---
Date of Consultation March 23, 2023 Assessment & Plan (1) Weakness generalized: (2) Dyspnea and respiratory abnormalities: (3) Advanced care planning/counseling discussion: I met with patient [id number] at the bedside for approximately 25 minutes. For most of this discussion, she chose to remain with either her eyes closed or her head turned away. She answered yes or no questions with regards to symptoms including that she did not have any acute pain and that shortness of breath was on occasion an issue. She did not wish to discuss any issues with regards to advance care planning. She also did not want to discuss any questions or concerns about her chronic aspiration. She tells me that she is going to go to [facility] to address that and chart review indicates a recommendation was made for TPN which she plans to pursue after this admission. She was however able to consistently tell me she did not want a PEG tube replaced. Her insight into her disease overall remains very limited. Although we did try to discuss her aspiration, the only thing she could tell me is that it needed to be fixed. (4) Palliative care by specialist: Met with pt/family. Provided overview of Palliative Medicine, a subspecialty that provides specialized medical care for people living with a serious illness by offering a focus on quality of life. Palliative Medicine is often conflated with hospice: I advised patient/family that Palliative and hospice can be partners but we are not the same. It is important to understand the difference so that we may be informed, and not afraid. Palliative Medicine works to improve QOL through reduction of symptom burden/more control over their illness, for both the patient and family. Palliative medicine clinicians are board certified, specially-trained and another member of the patient's medical care team. We often provide an extra layer of support because our care is based on the needs of the patient, not the prognosis; as such, it's appropriate at any age/advancing stage of a serious illness and can be provided along with curative treatment. Palliative Medicine clinicians are also trained in advanced communication methodologies, to facilitate complex discussions about advanced illness planning, which are needed to help assure that the treatment choices match the patient's goals, aka delivering Goal Concordant care. Finally, we discussed that hospice is a visiting nurse service that focuses on care delivered at the very end of life for patients with terminal illness, with life expectancy less than 6 month. Plan * Suspect likely cognitively limited and insight limited patient who is unable to fully understand and process the implications of the complexity of her illness. Remains very fixed on wanting the aspiration issue improved through medical interventions and does not comprehend when attempts are made to explain that that may not be possible. Remains quite clear she does not wish to have another PEG tube placed but has agreed to TPN though I am less sure she fully understands the overall risks associated with TPN. She resides at home with her boyfriend and her mother. * As far as advance care planning is concerned, patient engaged in a very minimal discussion with me as outlined above. Should be noted she does not have any advanced directives on file. Her boyfriend is not a legal spouse. In the [facility], the surrogate decision making, if and when needed, will fall to either an adult child/adult children (each get a vote) if she has any or her mother. ACT 169 should be followed for medical surrogate decision maker priority ordering. * Patient did not wish to engage in any substantial discussion with regards to advance care planning at this time. It is anticipated she will be sent to [facility] for TPN. For now, I will sign off and remain available for urgent reengagement should any new urgent needs arise. Thank you for allowing us to participate in the ongoing care of this patient. Please don't hesitate to call or page with any additional concerns. Dr. Loulou Moses DNP Director, Palliative Care History of Present Illness Reason for Consultation: On 03/20/23 @ 10:57 Althea Coronel Wrote To Loulou Moses goals of care, aspiration, achalasia Attending Physician: Harjit Maurice MD History of Present Illness 47yo female with hx COPD/smoking related, bronchiectasis, chronic aspiration with achalasia and dysphagia, +prior PEGs, COVID-19 pneumonia January 2022 needed hospitalization with an treatment with dexamethasone, marijuana abuse, uterine fibroids Presents to ED with worsening resp failure with c/o dyspnea, cough, fever and recurrent aspiration events. CTA shows no evidence of PE; she is evidence of chronic aspiration and progressive opacification of left inferior lobe. Suspected mucous plug, endobronchial lesion not excluded. Chart review indicates pt repeatedly decline repeat PEG placement and appears she has been consistently decisional in these choices. She was seen by [facility] in 2019, motility study consistent with achalasia and s/p myotomy. On admission note, "Discussed recurrent aspiration with pt, she is clear she does not wish to have a repeat PEG tube even if this prevented/reduced aspiration events and complications. ?TPN is an alternative, but would require line placement & w/ high infection risk" and chart indicates PEG tube removed 2020. Permanent aspiration risk, patient has declined PEG/J-tube's after removal in 2020 on follow-up and does not wish to be replaced under any circumstances. However, chart indicates d/w primary team and patient's boyfriend yesterday: "I met with the patient's boyfriend and son in the family waiting room. The boyfriend fails to understand why there is no fix for her aspiration problem. He would like her to have a PEG tube placed. He was assured that the GI was consulted. I explained to the boyfriend that the PEG tube placement will only address her nutrition but will not address her aspiration. With better nutrition, she may be able to gain some strength to have a better cough reflex and this may indirectly help with her aspiration issues. The boyfriend did not seem to like what he heard. He certainly is not thinking about changing CODE STATUS or consider palliative approach. He would like me to consult "specialists" that can fix her aspiration problem." Followed by Pulmonary med [facility]ought [facility], their notes indicate the following: COPD Approximately [id number] smoking history quit in March 2019 On Anoro using it on a daily basis. 02/28/22, 6MWT: Pt ambulated 350 feet. PFTs PFT 03/05/2022 personally reviewed: Severe obstructive lung dysfunction with sign ificant bronchodilator response, mild to moderate restrictive lung dysfunction with air trapping, mild decrease in DLCO (Decrease in FVC by 180 mL, decrease in FEV1 by 180 mL, decrease in TLC 81--> 77%, increase in DLCO 58--> 67% compared to 10/2019) FVC 1.60 L 44%, FEV1 1.11 L 38%, FEV1/FVC 69%, ERV 66%, RV 126%, TLC 77%, RV/TLC 164%, DLCO 67%, DLCO/VA 132% 11/17/2019: Suboptimal test as patient was not able to hold for 6 seconds, no obstructive lung dysfunction, insignificant bronchodilator response, air t rapping is appreciated, moderate decrease in DLCO which corrects for VA. FVC 1.78 L, 53%, FEV1 1.39 L, 49%, FEV1/FVC 78%, RV 124%, TLC 81%, RV/TLC 154%, DLCO 58%, DLCO/VA 104% Patient's alpha-1 antitrypsin level within normal limits. Phenotype PI*MM Bronchiectasis Likely secondary chronic aspiration pneumonia bilateral lower lobes, more on the right side Patient has flutter valve at home which she is using it. Advised patient to be more compliant with it. Advised patient to continue with incentive spirometry as well. Active marijuana use Allergies Allergy/AdvReac Type Severity Reaction Status Date / Time No Known Allergies Allergy Verified 03/19/23 12:09 Home Medications Medication Instructions Recorded Confirmed Type albuterol sulfate 90 mcg/actuation 2 puff inhalation QID PRN 11/28/22 03/19/23 Rx aerosol inhaler Shortness Of Breath #18 grams umeclidinium 62.5 mcg-vilanterol 1 inh inhalation DAILY #60 ea 11/28/22 03/19/23 Rx 25 mcg/actuation powdr for inhalation (Anoro Ellipta) Patient History Medical History (Updated 03/23/23 @ 19:24 by Loulou Moses DNP) Acute respiratory failure with hypoxia COVID-19 Ovarian cyst Poor dentition COPD (chronic obstructive pulmonary disease) Difficulty swallowing Difficulty chewing Depression Anxiety Tobacco abuse Marijuana smoker Constipation Arthritis Scoliosis Surgical History History of esophagogastroduodenoscopy (EGD) Family History Other Family history non-contributory Social History Smoking Status: Current every day smoker Tobacco Type: Cigarettes Cigarettes Per Day: 1 PACK/DAY; Second Hand Exposure: Yes; Do You Dip or Chew Tobacco: No; Hx Alcohol Use: No Hx Substance Use: No Preferred Language: Slovenian Communication Ability: Effective Visual Impairment: No Limitations Financial Aid Advisor Required: No Beliefs That Will Affect Care: None marital status: Single Current Living Situation: Family How many Children do You have: 1 Feels Safe at Home: Yes Safety Concerns: Feels Safe At This Time Diet: regular Assistive Devices: None Review of Systems Review of Systems: Unable to obtain, patient refused to answer. Physical Exam Physical Exam: Frail, cachectic female lying in bed. Bitemporal wasting noted. Pupils are equal and round, reactive to light. Neck is supple. There is no stridor. Dentition is very poor. There is missing teeth, caries and gingival disease. Oral mucosa are dry. Respiratory effort noted. Lungs are diminished on a very limited anterior exam. There are a few faint crackling rhonchi noted. Generalized muscle wasting and diminished strength. Skin is pale and cool to touch. While patient is awake and alert, she chose to mostly not interact with or respond to me through the duration of this visit. Results & Data Vital Signs (Past 12 Hours) Vital Signs Temp Pulse Pulse Resp BP Pulse Ox O2 Del Method 03/23/23 07:45 36.6 C 85 19 100/65 92 Nasal Cannula 03/23/23 07:14 78 16 100 Nasal Cannula 03/23/23 03:04 36.5 C 61 16 103/72 98 Nasal Cannula 03/22/23 23:56 59 L O2 Flow Rate 03/23/23 07:45 1.0 03/23/23 07:14 3 03/23/23 03:04 2 03/22/23 23:56 Laboratory Results Data reviewed Diagnostic Findings Data reviewed PG Care Time/CCT Total # of Minutes Spent Total Time Spent: 90 Total Time Spent with Patient: Total time spent is greater than 50% in coordination of care (as documented) at patient's floor/unit and/or counseling patient: I spent 90 minutes overall addressing this case: 25 min in medical data review/discussion with referring provider(s) and/or preparation for the visit 15 min in direct interaction with the patient/exam 25 min in Advance Care Planning/Goals of Care discussions as detailed above in note (must be >16min) 15 min in subsequent review and synthesis of assessment and plan 15 min communicating with other providers regarding the patient's case: Advanced Care Planning 71214 Advanced Care Planning 30 [place] [address] IN/OBS CONSULT LVL 5,80M Patient Type New Medical Decision Making High Complexity Diagnoses Weakness generalized R53.1 Dyspnea and respiratory abnormalities R06.00; R06.89 Advanced care planning/counseling discussion Z71.89 Palliative care by specialist Z51.5 Additional Codes Advanced Care Planning - 97103 Advanced Care Planning 30 Min: 21947 Advanced Care Planning 30 Min ([id number])
[2023-03-23] MEDS: NSS + 20MEQ KCL 20 MEQ/1,000 ML BAG IV SCH (12:09)
[2023-03-23] MEDS ORDERED: ACETAMINOPHEN 1,000 MG/100 ML VIAL IV STA (12:27)
[2023-03-23] MEDS ORDERED: ACETAMINOPHEN 1000 MG/100 ML IV IV ONE (13:06)
--- NOTE | 2023-03-23 13:52 | Pharmacy Report ---
Pharmacy Initial PN Consult Nt - Date of Service March 21, 2023 - Scope Pharmacy has been consulted on this date to manage parenteral nutrition orders and order appropriate labs. As part of the Nutrition Support Team Guidelines, pharmacy will work in conjunction with dietary when determining the patients caloric needs. - Subjective * The patient is a 47 year old Female admitted on 03/19/23 for HYPOXIC RESPIRATORY FAILURE, CHRONIC ASPIRATION, M. * Patient is to receive parenteral nutrition for prolonged NPO status/refusing feeding tube. * Pertinent PMHx: recurrent aspiration, achalasia, dysphagia, previous PEG tube removed in 2020, severe protein-calorie malnutrition. - Objective Vascular Access: * Patient currently has a peripheral line. * Peripheral line was confirmed by IV Team to be acceptable for PPN use on this date. Height & Weight (Last Documented) Height 5 ft 4 in Weight 41.5 kg Diet Order(s) 03/20/23 13:55 NPO Intake & Ouput (24hrs) 03/20/23 03/21/23 03/22/23 06:59 06:59 06:59 Intake Total 3479.000 / 3479.000 2751.667 / 2751.667 1210 / 1210 Output Total 450 / 450 1125 / 1125 175 / 175 Balance 3029.000 / 3029.000 1626.667 / 8120.996 6547 / 1035 Selected Laboratory Results 03/21/23 06:05 Sodium 139 Potassium 3.9 Chloride 108 H Carbon Dioxide 29 Anion Gap 2 L BUN 4 L Creatinine 0.34 L Est GFR ( Amer) > 150.0 Est GFR (Non-Af Amer) 130.8 BUN/Creatinine Ratio 11.8 Glucose 103 H Calcium 8.7 Phosphorus < 1.0 L* D Magnesium 2.0 RD - Initial Nutrition Assessment Start: 03/20/23 15:48 Freq: Status: Active Protocol: Document 03/20/23 15:48 WN (Rec: 03/20/23 16:16 WN [id number]) - Assessment & Plan Assessment: * Appreciate dietitians recommendations for macronutrients. * Will start around half of macronutrient goal for day #1 and titrate up as tolerated due to refeeding risk. * Dextrose fluids will be discontinued once PPN starts today. * Received 24 mmol of Na Phos repletion today for phos of < 1.0 this morning. Recheck at 1500. If still < 2 then PPN will need held for today. * Lipids to be ordered 5 times per week (Mo-Fr). * Pepcid being supplemented outside the PPN bag. Plan: * For Day #1 of PPN administration, the following will be ordered: * Macronutrients: * Amino Acids: 43 grams/day * Dextrose: 50 grams/day * Lipids: None * Micronutrients: * Sodium acetate: 40 mEq/day * Potassium phosphate: 30 mMol/day * Potassium acetate: 20 mEq/day * Magnesium sulfate: 8.12 mEq/day * Multivitamins: 10 mL/day * Trace elements: 1 mL/day * Thiamine: 100 mg/day * Total volume of 1054 mL will be infused over 24 hours and will provide 340 kcal/day * Patient is on PPN which has a maximum mOsm/L of 900. Final osmolarity of current solution is 832 mOsm/L. * Labs will be ordered per PN protocol. * Pharmacy will follow and adjust PN orders on a daily basis. Thank you!
--- NOTE | 2023-03-23 13:59 | Gastroenterology Progress Note ---
Date of Service March 23, 2023 Assessment & Plan (1) Dysphagia: (2) Dilation of esophagus: (3) Aspiration into lower respiratory tract: Plan Recommend neuro consult to w/u for cause of the aspiration - are there any degenerative neurologic diseases or has there been a stroke that caused the dysphagia possibly impacting her life span? Long discussion w pt and her boyfriend regarding current options including permissive aspiration, TPN, PEG tube. Pt continues to prefer to avoid PEG if at all possible. Discussed w hospitalist. Will plan for TPN. OP referral placed for urgent TPN management referral to Dr. Leung in the [facility]. The pt will be contacted by them for an appt. Initial appt may need to be in [facility] but f/u can be at [facility]. Recommend setting pt up for home TPN prior to DC, then f/u for management/adjustment of TPN can be in the [facility]. If/when pt would like to have a PEG tube placed, we would be agreeable to arranging that. Admission and Anticipated Discharge Date Admission Date: March 19, 2023 Supervising Physician Co-Signing Physician Notes I had a long discussion today with the patient, boyfriend on three occasions, She is not entirely refusin, but is almost refusing a peg tube as she does not desire this to be replaced. She wants to explore all options and have more time to think. It is unusual to me that without explanation she is so weak that she can not tolerate secretions, she can barely phonate, but clearly she has oropharyngeal dysfunction. Will be more than happy to place enteric tube assuming she desires this, otherwise she has options of tpn vs permissive aspiration. agree with neuro comment and eval per her wishes for placement. Subjective 47 yr old female w hx alpha anti-trypsen deficiency and oral pharyngeal dysphagia. Hx of achalasia and POEM in 2018, then EGD w PEG-J for dysphagia in Apr 2019. PEG-J removed in 2020 as pt was able to tolerate oral at that time. On review of her records, there doesn't seem to be a clear cause for her dysphagia - no record of neuro eval. Video swallow in Jan 2022 w severe oropharyngeal dysphagia at that time refused PEG and has been taking foods po. Recent bedside eval w continued recommendation for NPO. Admitted 03/19 for aspiration pneumonia. On arrival notes document she does not wish for PEG. Pt and boyfriend told us today that about 2 m ago, her swallowing suddenly worsened - at that time, even unable to tolerate swallowing her saliva, voice and cough both further weakening. Boyfriend an pt both tell us that they still do not want PEG - only agreed because told she would in 2m if she didn't get a PEG (believe this was the hospitalist service over the weekend though not sure). Review of Systems Review of Systems: ROS: Gen: Generally weak, + continued weight loss; no fevers Eyes: No eye redness, or pain, no recent vision changes Resp: + SOB, has to stop to catch her breath when talking; + chronic cough Cardio: No palpitations/irregular beats, no chest pain GI: As per HPI, otherwise (-) : Denies pain on urination Skin: No jaundice, itching or new rashes Neuro: generally weak, unable to swallow well. Physical Exam Constitutional: Generally weak, frail appearing. Awake, alert, oriented. Eyes: Bilat eyelid drooping WILFREDO, EOMs intact ENMT: external ear and nose normal, oropharynx normal uvula rises mid-line; tongue protrudes mid line, facial features symetrical Neck: trachea midline, no thyromegaly Respiratory: normal respiratory effort, lungs clear to auscultation (diminished at bases) Cardiovascular: RRR, no murmur, no edema Gastrointestinal (Abdomen): Inspection/Auscultation: + hypoactive bowel sounds; abdomen not distended Percussion/Palpation: abdomen soft; abdomen nontender, no abdominal mass and no ascites Musculoskeletal: no red/swollen joints; strengths equal bilat Skin: pale, warm, dry . Neurologic: general weakness w/o asymmetry; Weak cough. Psychiatric: A+Ox3, euthymic affect Lymphatic: no cervical or axillary lymphadenopathy Results & Data Vital Signs (Past 12 Hours) Vital Signs Temp Pulse Resp BP Pulse Ox O2 Del Method O2 Flow Rate 03/23/23 11:38 36.8 C 92 H 18 119/71 91 Nasal Cannula 1.0 03/23/23 07:45 36.6 C 85 19 100/65 92 Nasal Cannula 1.0 03/23/23 07:14 78 16 100 Nasal Cannula 3 03/23/23 03:04 36.5 C 61 16 103/72 98 Nasal Cannula 2 Laboratory Results WBC 7.3, Hb 7.7, Hct 26, Plts 280, Na 141, K 4.0, Cl 109, CO2 28, BN 2, Cr 0.34, glucose 179. Ph 1.0, Mb 1.6 Diagnostic Findings Chest CTA 03/19/23: Findings consistent w achalasia and aspiration pneumonia 1. No pulmonary embolus. 2. There is atelectasis of the right middle and lower lobes and the left lower lobe, progressed from prior exam. Bronchial wall thickening in the right lower lobe may reflect infectious/inflammatory process. The same is likely a true of the left, however follow-up to resolution is recommended to exclude endobronchi al lesion. 3. Patulous esophagus.
[2023-03-23 18:02] LABS: Anion Gap 4 (3-11); Blood Urea Nitrogen 3 mg/dl (6-23); Calcium 8.6 mg/dl (8.6-10.3); Carbon Dioxide 26 mmol/L (21-32); Chloride 107 mmol/L (98-107); Creatinine Clr Calc Pharmacy 125.8 ml/min; Est GFR (African American) > 150.0 ml/min; Est GFR (Non-African American) 129.6 ml/min; Glucose Fasting 149 mg/dl (70-99); Phosphorus 1.2 mg/dl (2.5-4.9); Sodium 137 mmol/L (136-145)
[2023-03-23] MEDS ORDERED: SODIUM PHOSPHATE 3 MMOL/1 ML INFUSION IV STA (19:17)
[2023-03-23] MEDS ORDERED: SODIUM PHOSPHATE 21 MMOL in SODIUM CHLORIDE 0.9% 500 ML IV ONE (19:30)
[2023-03-23] MEDS ORDERED: STOP CLINOLIPID ONE (22:00)
[2023-03-23] MEDS ORDERED: STOP CLINOLIPID SCH (22:00)
[2023-03-23] MEDS ORDERED: LORazepam 0.5 MG TAB PO STA (23:09)
[2023-03-23] MEDS ORDERED: LORazepam 0.5 MG in SYRINGE 0.25 ML IV STA (23:19)
[2023-03-24] MEDS: PIPERACILLIN/TAZOBACTAM 4.5 GM in DEXTROSE 5% MINI-B 100 ML IV SCH ×4 (00:23→23:35)
--- NOTE | 2023-03-24 02:37 | Magnetic Resonance Report ---
Exam(s): MRI HEAD Without Contrast EXAM: MR Head Without Intravenous Contrast CLINICAL HISTORY: Reason for exam: unexplained severe dysphagia. TECHNIQUE: Magnetic resonance images of the head/brain without intravenous contrast in multiple planes. COMPARISON: No relevant prior studies available. FINDINGS: Brain: Mild nonspecific white matter changes. The flow voids at the base of the brain are intact. No mass. No hemorrhage. No acute infarct. Ventricles: Moderate ventriculomegaly. Bones/joints: Unremarkable. No acute fracture. Sinuses: Unremarkable as visualized. No acute sinusitis. Mastoid air cells: There is a small mild fluid in the left mastoid air cells. No mastoid effusion. Orbits: Unremarkable as visualized. IMPRESSION: No evidence of acute intracranial pathology. Mild nonspecific white matter changes. Electronically signed by: Mary Tobar MD 03/24/23 02:36 AM
--- NOTE | 2023-03-24 03:22 | Magnetic Resonance Report ---
Exam(s): MRI C SPINE EXAM: MR Cervical Spine Without Intravenous Contrast CLINICAL HISTORY: Reason for exam: unexplained severe dysphagia. TECHNIQUE: Magnetic resonance images of the cervical spine without intravenous contrast in multiple planes. COMPARISON: No relevant prior studies available. FINDINGS: Vertebrae: There is 7 cervical type vertebral bodies with a mild generalized curve to the left and shallow cervical lordosis. There is normal vertebral body height and alignment. The bone marrow signal is heterogeneous with reactive endplate changes and areas of focal fat or venous malformations. There is narrowing of the entire cervical spinal canal secondary to congenitally short pedicles. No acute fracture. Spinal cord: The cord demonstrates flattening at C3-4, C4-5, C5-6 and C6-7 without evidence of abnormal cord signal. The craniocervical junction is normal without evidence of Chiari malformation. Soft tissues: The cervical flow voids are intact. DISCS/SPINAL CANAL/NEURAL FORAMINA: C2-C3: There is mild disc degeneration with annular disc bulging find a ventral thecal sac. There is minimal to mild facet joint arthropathy with moderate right and mild left synovitis. C3-C4: There is mild disc degeneration with annular disc bulge flattening the ventral cord without evidence of abnormal cord signal with superimposed congenitally short pedicles causing a moderate spinal canal stenosis with AP diameter measuring 8.3 mm. There is mild facet joint arthropathy with mild to moderate synovitis. C4-C5: Moderate disc degeneration with annular disc bulge asymmetric to the left and superimposed 2 mm central disc protrusion flattening the ventral cord without evidence of abnormal cord signal with superimposed congenitally short pedicles causing a critical spinal canal stenosis with AP number measured 6.4 mm. There is mild facet joint arthropathy with mild synovitis. C5-C6: Moderate disc degeneration with annular disc bulge asymmetric to the left flattening the ventral cord without evidence of abnormal cord signal with superimposed congenitally short pedicles causing a severe spinal canal stenosis with AP diameter measuring 7.3 mm. There is mild facet arthropathy with mild synovitis. C6-C7: There is mild disc degeneration with a no disc bulge asymmetric to the left flattening the ventral cord without evidence of abnormal cord signal with superimposed congenitally short pedicles causing a severe spinal canal stenosis with AP diameter measuring 7.1 mm. There is minimal to mild facet arthropathy with mild synovitis. C7-T1: The Intervertebral disc is normal. There is minimal to mild facet joint arthropathy with mild synovitis. IMPRESSION: 1. Moderate disc degeneration at C4-5 and C5-6 with mild disc degeneration at C2-3, C3-4 and C6-7 with annular disc bulging flattening the ventral thecal sac and flattening the ventral cord at C3-4, C4-5, C5- 6 and C6-7 without evidence of abnormal cord signal. 2. There is a critical spinal canal stenosis at C4-5, severe stenosis at C5-6 and C6-7 and moderate stenosis at C3-4 with a congenitally narrow spinal canal. 3. There is no evidence of neural foraminal stenosis. 4. There is minimal to mild facet joint arthropathy with mild to moderate synovitis, most significant at C2-3 and C3-4. 5. No evidence of fracture, infection, tumor or myelopathy. Electronically signed by: Mary Tobar MD 03/24/23 03:21 AM
[2023-03-24] MEDS: DOXYCYCLINE HYCLATE 100 MG in DEXTROSE 5% MINI-B 100 ML IV SCH ×2 (03:41→13:15)
[2023-03-24] MEDS: NSS + 20MEQ KCL 20 MEQ/1,000 ML BAG IV SCH (06:04)
[2023-03-24] MEDS: SODIUM CHLOR 7% 4 ML NEB NEB SCH ×2 (07:19→19:20)
--- NOTE | 2023-03-24 07:27 | Hospitalist Progress Note ---
Date of Service March 24, 2023 Assessment & Plan (1) Acute respiratory failure with hypoxia: Plan: Acute hypoxic respiratory failure, aspiration with COPD exacerbation, suspected mucous plugging. Followed by [facility] pulm, most recent note indicated patient's alpha-1 antitrypsin level within normal limits.( Phenotype PI*MM, Normal) Septic on admission w/ reported fever, leukocytosis, tachycardia pulmonary source w acute aspiration pneumonia, also confirmed UTI ecoli poa s/p 1500cc bolus on admission (approx 40kg patient/met 30cc/kg sepsis recs) CT chest w/ evidence of chronic aspiration and progressive opacification of left inferior lobe. Suspected mucous plug, endobronchial lesion not excluded. Continues on IV Zosyn/Doxy IV MRSA nares NEGATIVE Methylprednisolone 40mg IV daily Pulmonary toilet -- nebs as needed, hypertonic saline to help with mucus plugging, incentive spirometer/flutter valve, sputum cx as able to produce. ASpiration precautions to be maintained (2) Dysphagia: Plan: Recurrent aspiration, history of achalasia and dysphagia Patient was seen by [facility] in 2019, motility study consistent with achalasia and s/p myotomy PEG tube removed 2020. Permanent aspiration risk, patient has declined PEG/J- tube's after removal in 2020 on follow-up and does not wish to be replaced under any circumstances Patulous esophagus re-demonstrated on CT, no change from prior Prior speech eval 2021 noting aspiration of ALL bolus, patient accepted risk of permissive aspiration/declined repeat PEG/J-tube placement (patient confirmed this) Prescription Clerk Lenses consulted for malnutrition, supplementation --> Iron panel w/ severe deficiency with iron <10, unsat IBC 311, ferritin 4.4-> Venofer 200mg IV daily while inpatient ordered (BPs low, wanting to prevent further drop) -- B12/folate wnl, pending tsh, adding thiamine iv, vitamin D low cannot take po Continues on Plasma-lyte @ 80cc/hr for now, was NPO, cannot start ppn or tpn as phos remains very low continue parenteral repletion as phos may not replete with low vitamin D will attempt to give vvitamin d po, pt refuses core safe for any reason at this time so will try to replete phos to have tpn start in hospital and have pt go to [facility] 03/30/23 GI medicine recommended neurology evaluation for etiology of swallowing issue noted elevated protein in face of malnourishment , check electrophoresis and per discussion normal mri brain MRI c spine with critical spinal stenosis as commented on by radiology, will need to have improved nutrition, pt without other symptoms outside of swallowing (3) Anemia: Plan: Chronic anemia, hx transfusions, severely iron deficient and chronic disease from poor nutrition supplemented iv iron (4) Severe protein-calorie malnutrition: Plan: BMI 15, weight 39.7kg. Poor nutrition status at baseline 2nd to dysphagia/achalasia at baseline Chronic aspiration, speech consult deferred as likely to have had no interval change --> placed given patient WANTING TO CONTINUE TO EAT FOR DOCUMENTATION PURPOSES PT is with consideration of outpt TPN, [facility] feels that [facility] has a follow up clinic for outpt TPN with Dr Leung (5) COPD exacerbation: Plan: COPD Home Anoro continued PFTs 2021: Severe obstructive lung dysfunction with bronchodilator response, mildly decreased DLCO. Management of acute exacerbation as above (6) Aspiration pneumonia: Plan: - Abx/tx as noted, aspiration precautions, speech consulted as above as well as nutrition (7) LBBB (left bundle branch block): Plan: Sinus tachycardia with left bundle branch block - EKG as above, no acute ischemic change. Patient had some pain with coughing, but denied any chest pain at rest. She endorses weakness, but outside of this has not had chest pain or chest pressure with exertion Reactive to volume depletion and pulmonary disease, treated as above. No indication at this time for rate control. Optimize magnesium 2.0/K 4.0 - trop wnl (8) Marijuana abuse: Plan: Marijuana use, former tobacco use Marijuana cessation recommended [id number] smoking history in remission since 2019 Plan DVT PPx: Heparin SQ Admission and Anticipated Discharge Date Admission Date: March 19, 2023 Results & Data Results & Data Vital Signs (Past 12 Hours) Vital Signs Temp Pulse Resp BP Pulse Ox O2 Del Method O2 Flow Rate 03/24/23 03:34 97.9 F 65 111/71 90 Nasal Cannula 1 03/24/23 00:23 Nasal Cannula 1 03/23/23 23:27 97.9 F 72 16 102/65 93 Nasal Cannula 2 03/23/23 20:17 97.5 F L 74 18 103/67 97 Room Air 03/23/23 20:15 Nasal Cannula PG Care Time/CCT Total # of Minutes Spent Total Time Spent with Patient: Total time spent is greater than 50% in coordination of care (as documented) at patient's floor/unit and/or counseling patient: Coding Level of Care Code 44857 SUB INP/OBS CARE 2/35MIN Diagnoses Acute respiratory failure with hypoxia J96.01 Dysphagia R13.10 Anemia D64.9 Severe protein-calorie malnutrition E43 COPD exacerbation J44.1 Aspiration pneumonia J69.0 LBBB (left bundle branch block) I44.7 Marijuana abuse F12.10
[2023-03-24 07:35] LABS: BUN Creatinine Ratio 10.3 (10-20); C Reactive Protein 0.53 mg/dl (0-0.5); Calcium 8.6 mg/dl (8.6-10.3); Creatinine Clr Calc Pharmacy 113.7 ml/min; Est GFR (Non-African American) 125.1 ml/min; Magnesium 2.1 mg/dl (1.7-2.4); Phosphorus 1.1 mg/dl (2.5-4.9); Potassium 3.9 mmol/L (3.5-5.1); Total Protein 6.4 gm/dl (6.0-8.3)
[2023-03-24 07:49] LABS: Thyroid Stimulating Hormone 1.999 uIu/ml (0.300-4.500)
[2023-03-24 07:51] LABS: Lyme Ab IgG w/WB Rflx Negative (Negative); Lyme Ab IgM w/WB Rflx Negative (Negative)
[2023-03-24] MEDS: FAMOTIDINE 20 MG in SYRINGE 3 ML IV SCH ×2 (08:30→20:13)
[2023-03-24] MEDS: IRON SUCROSE 200 MG in 0.9 % SODIUM CHLORIDE 100 ML IV SCH (08:31)
[2023-03-24] MEDS: methylPREDNISolone 40 MG in SYRINGE 0 ML IV SCH (08:31)
--- NOTE | 2023-03-24 08:31 | Neurology Consultation ---
Date of Consultation March 24, 2023 Assessment & Plan (1) Achalasia: History of Present Illness Attending Physician: Harjit Maurice MD History of Present Illness 47 yo female with long hx of achalasia and GI issues. she came in due to COPD and hypoxia and aspiration pneumonia. Gi consulted neurology for input for her achalasia. she had mri brain and C spine and it was negative for any stroke or lesions. she has had this problems for long time and had s/p POEM surgery. she is feeling better this morning and still NPO. she is pending possible PEG /TPN for nutritional care. no focal weakness or speech change reported. chart reviewed. mri reviewed. Allergies Allergy/AdvReac Type Severity Reaction Status Date / Time No Known Allergies Allergy Verified 03/19/23 12:09 Home Medications Medication Instructions Recorded Confirmed Type albuterol sulfate 90 mcg/actuation 2 puff inhalation QID PRN 11/28/22 03/19/23 Rx aerosol inhaler Shortness Of Breath #18 grams umeclidinium 62.5 mcg-vilanterol 1 inh inhalation DAILY #60 ea 11/28/22 03/19/23 Rx 25 mcg/actuation powdr for inhalation (Anoro Ellipta) Patient History Medical History (Updated 03/24/23 @ 08:41 by Chuckie Don MD) Achalasia Acute respiratory failure with hypoxia COVID-19 Ovarian cyst Poor dentition COPD (chronic obstructive pulmonary disease) Difficulty swallowing Difficulty chewing Depression Anxiety Tobacco abuse Marijuana smoker Constipation Arthritis Scoliosis Surgical History History of esophagogastroduodenoscopy (EGD) Family History Other Family history non-contributory Social History Smoking Status: Current every day smoker Tobacco Type: Cigarettes Cigarettes Per Day: 1 PACK/DAY; Second Hand Exposure: Yes; Do You Dip or Chew Tobacco: No; Hx Alcohol Use: No Hx Substance Use: No Preferred Language: Indonesian Communication Ability: Effective Visual Impairment: No Limitations Stamping Press Operator Required: No Beliefs That Will Affect Care: None marital status: Single Current Living Situation: Family How many Children do You have: 1 Feels Safe at Home: Yes Safety Concerns: Feels Safe At This Time Diet: regular Assistive Devices: None Exam (Neuro) Physical Exam: HEENT: normocephalic Neuro: Mental: AOx4, fluent speech, normal comprehension, no apraxia, no L/R confusion, no neglect CN: PERRL, Full EOM, symmetric face, intact sensation t/o face, midline T/U/P, 5/5 SCM/traps. Motor: No abnormal movements, normal tone and bulk, 5-/5 t/o bilaterally Sens: intact to touch b/l grossly Coord: intact DTR: 1+ sym b/l Gait: intact grossly Impression: pt with chronic achalasia without focal lesions to explain her condition. She is likely having worsening symptoms recently due to systemic infection and aspiration. mri brain and C spine negative for lesion to explain her problem. there is no clear neurological condition to contribute to her achalasia/dysphasia. Recommendations: continue care as GI recommendations. no further work up or testing needed from neurology. please call again if new question. Chart reviewed I have spent more than 50% educating patient about potential diagnosis and neurological evaluation and coordinating care with patient's treatment team. Total time spent (including chart review and coordination of care): 60 min (this includes chart review). Results & Data Vital Signs (Past 12 Hours) Vital Signs Temp Pulse Resp BP Pulse Ox O2 Del Method O2 Flow Rate 03/24/23 07:28 82 18 123/74 97 Nasal Cannula 2.0 03/24/23 07:26 73 18 98 Nasal Cannula 1 03/24/23 03:34 36.6 C 65 111/71 90 Nasal Cannula 1 03/24/23 00:23 Nasal Cannula 1 03/23/23 23:27 36.6 C 72 16 102/65 93 Nasal Cannula 2 PG Care Time/CCT Total # of Minutes Spent Total Time Spent with Patient: Total time spent is greater than 50% in coordination of care (as documented) at patient's floor/unit and/or counseling patient: Coding Level of Care Code 49656 IN/OBS CONSULT LVL 4,60M Diagnoses Achalasia K22.0
[2023-03-24] MEDS: THIAMINE HCL 100 MG in SYRINGE 9 ML IV SCH (08:32)
[2023-03-24] MEDS: HEPARIN SOD 5,000 UNIT/0.5 ML VIAL SQ SCH ×2 (08:32→20:13)
[2023-03-24] MEDS: UMECLIDINIUM/VILANTEROL 62.5/25MCG 7 PUFFS/INHALER INH SCH (08:33)
[2023-03-24] MEDS: ACETAMINOPHEN 1,000 MG/100 ML VIAL IV PRN (11:20)
--- NOTE | 2023-03-24 13:57 | Gastroenterology Progress Note ---
Date of Service March 24, 2023 Assessment & Plan (1) Malnutrition: Plan: Again discussed PEG and Or PEG/J. Patient again reiterated that she does not want a peg and wants to try TPN. Not sure this is the best option, but will honor her wishes. Still confusing of proximal muscle weakness, eyelid droop, and such profound oropharyngeal dysfunction. She is in fact at risk of aspiration on own secretions. If patient has a change of mindset can re-address enteric tube Call with questions Admission and Anticipated Discharge Date Admission Date: March 19, 2023 Subjective No new complaints today Physical Exam Physical Exam: thin, emaciated poor and weak phonation Drooping eyelids RRR no mgr CTABL NABS/Soft/NT/ND No edema Very proximally weak Results & Data Vital Signs (Past 12 Hours) Vital Signs Temp Pulse Pulse Resp BP BP Pulse Ox 03/24/23 12:03 36.8 C 88 17 101/65 94 03/24/23 11:41 03/24/23 08:00 75 03/24/23 07:28 82 18 123/74 97 03/24/23 07:26 73 18 98 03/24/23 03:34 36.6 C 65 111/71 90 O2 Del Method O2 Flow Rate 03/24/23 12:03 Room Air 03/24/23 11:41 Nasal Cannula 1 03/24/23 08:00 03/24/23 07:28 Nasal Cannula 2.0 03/24/23 07:26 Nasal Cannula 1 03/24/23 03:34 Nasal Cannula 1 (1) Malnutrition Malnutrition type: unspecified type Qualified Code(s): E46 - Unspecified protein-calorie malnutrition
[2023-03-24] MEDS: MoRPHine SULFATE 2 MG/ML CARP IV PRN (15:24)
[2023-03-24] MEDS ORDERED: POTASSIUM PHOS 3 MMOL/1 ML INFUSION IV STA (18:04)
[2023-03-24] MEDS: ERGOCALCIFEROL 50,000 UNITS 1250 MCG CAP PO SCH (18:07)
[2023-03-24] MEDS ORDERED: POTASSIUM PHOSPHATE 21 MMOL in SODIUM CHLORIDE 0.9% 500 ML IV ONE (18:30)
[2023-03-24] MEDS: LEVALBUTEROL 1.25 MG/3 ML NEB NEB PRN (19:21)
[2023-03-25] MEDS ORDERED: D5NSS + 20MEQ KCL 20 MEQ/1,000 ML BAG IV SCH (00:15)
[2023-03-25] MEDS: DOXYCYCLINE HYCLATE 100 MG in DEXTROSE 5% MINI-B 100 ML IV SCH ×2 (01:19→13:53)
[2023-03-25 07:09] LABS: Anion Gap 3 (3-11); BUN Creatinine Ratio 16.7 (10-20); Blood Urea Nitrogen 6 mg/dl (6-23); Calcium 8.5 mg/dl (8.6-10.3); Carbon Dioxide 29 mmol/L (21-32); Chloride 106 mmol/L (98-107); Est GFR (African American) 148.8 ml/min; Est GFR (Non-African American) 128.4 ml/min; Glucose 74 mg/dl (70-99(Fasting)); Potassium 4.1 mmol/L (3.5-5.1); Sodium 138 mmol/L (136-145)
[2023-03-25 07:11] LABS: Phosphorus < 1.0 mg/dl (2.5-4.9)
[2023-03-25] MEDS: SODIUM CHLOR 7% 4 ML NEB NEB SCH ×2 (07:16→20:39)
[2023-03-25] MEDS ORDERED: SODIUM PHOSPHATE 3 MMOL/1 ML INFUSION IV STA (07:32)
[2023-03-25] MEDS ORDERED: SODIUM PHOSPHATE 40 MMOL in SODIUM CHLORIDE 0.9% 1,000 ML IV ONE (07:45)
[2023-03-25] MEDS: PIPERACILLIN/TAZOBACTAM 4.5 GM in DEXTROSE 5% MINI-B 100 ML IV SCH ×2 (08:16→15:43)
[2023-03-25] MEDS: FAMOTIDINE 20 MG in SYRINGE 3 ML IV SCH ×2 (08:16→20:01)
[2023-03-25] MEDS: methylPREDNISolone 20 MG in SYRINGE 0 ML IV SCH (08:17)
[2023-03-25] MEDS: THIAMINE HCL 100 MG in SYRINGE 9 ML IV SCH (08:17)
[2023-03-25] MEDS: HEPARIN SOD 5,000 UNIT/0.5 ML VIAL SQ SCH ×2 (08:17→20:01)
[2023-03-25] MEDS: UMECLIDINIUM/VILANTEROL 62.5/25MCG 7 PUFFS/INHALER INH SCH (08:17)
[2023-03-25] MEDS: ACETAMINOPHEN 1,000 MG/100 ML VIAL IV PRN (11:59)
[2023-03-25] MEDS: MoRPHine SULFATE 2 MG/ML CARP IV PRN (14:00)
[2023-03-25] MEDS: ERGOCALCIFEROL 50,000 UNITS 1250 MCG CAP PO SCH (15:43)
--- NOTE | 2023-03-25 16:46 | Hospitalist Progress Note ---
Date of Service March 25, 2023 Assessment & Plan (1) Acute respiratory failure with hypoxia: Plan: Acute hypoxic respiratory failure, aspiration with COPD exacerbation, suspected mucous plugging. Followed by [facility] pulm, most recent note indicated patient's alpha-1 antitrypsin level within normal limits.( Phenotype PI*MM, Normal) Septic on admission w/ reported fever, leukocytosis, tachycardia pulmonary source w acute aspiration pneumonia, also confirmed UTI ecoli poa s/p 1500cc bolus on admission (approx 40kg patient/met 30cc/kg sepsis recs) CT chest w/ evidence of chronic aspiration and progressive opacification of left inferior lobe. Suspected mucous plug, endobronchial lesion not excluded. Continues on IV Zosyn/Doxy IV MRSA nares NEGATIVE Methylprednisolone 40mg IV daily Pulmonary toilet -- nebs as needed, hypertonic saline to help with mucus plugging, incentive spirometer/flutter valve, sputum cx as able to produce. ASpiration precautions to be maintained (2) Dysphagia: Plan: Recurrent aspiration, history of achalasia and dysphagia Patient was seen by [facility] in 2019, motility study consistent with achalasia and s/p myotomy PEG tube removed 2020. Permanent aspiration risk, patient has declined PEG/J- tube's after removal in 2020 on follow-up and does not wish to be replaced under any circumstances Patulous esophagus re-demonstrated on CT, no change from prior Prior speech eval 2021 noting aspiration of ALL bolus, patient accepted risk of permissive aspiration/declined repeat PEG/J-tube placement (patient confirmed this) Program Manager Transportation consulted for malnutrition, supplementation --> Iron panel w/ severe deficiency with iron <10, unsat IBC 311, ferritin 4.4-> Venofer 200mg IV daily while inpatient ordered (BPs low, wanting to prevent further drop) -- B12/folate wnl, pending tsh, adding thiamine iv, vitamin D low cannot take po Continues on Plasma-lyte @ 80cc/hr for now, was NPO, cannot start ppn or tpn as phos remains very low continue parenteral repletion as phos may not replete with low vitamin D will attempt to give vitamin d po, pt refuses core safe for any reason at this time so will try to replete phos to have tpn start in hospital and have pt go to [facility] 03/30/23 24 hour urine phos is ordered if excessive may consider nephrology eval GI medicine recommended neurology evaluation for etiology of swallowing issue noted elevated protein in face of malnourishment , check electrophoresis and per discussion normal mri brain MRI c spine with critical spinal stenosis as commented on by radiology, I asked Dr. Marks to review the patient's MR C-spine he does not feel she is critical spinal stenosis but there are some minor changes none of which could impact her swallowing. (3) Anemia: Plan: Chronic anemia, hx transfusions, severely iron deficient and chronic disease from poor nutrition supplemented iv iron (4) Severe protein-calorie malnutrition: Plan: BMI 15, weight 39.7kg. Poor nutrition status at baseline 2nd to dysphagia/achalasia at baseline Chronic aspiration, speech consult deferred as likely to have had no interval change --> placed given patient WANTING TO CONTINUE TO EAT FOR DOCUMENTATION PURPOSES PT is [facility] a follow up clinic for outpt TPN with Dr Leung (5) COPD exacerbation: Plan: COPD Home Anoro continued PFTs 2021: Severe obstructive lung dysfunction with bronchodilator response, mildly decreased DLCO. Management of acute exacerbation as above (6) Aspiration pneumonia: Plan: - Abx/tx as noted, aspiration precautions, speech consulted as above as well as nutrition (7) LBBB (left bundle branch block): Plan: Sinus tachycardia with left bundle branch block - EKG as above, no acute ischemic change. Patient had some pain with coughing, but denied any chest pain at rest. She endorses weakness, but outside of this has not had chest pain or chest pressure with exertion Reactive to volume depletion and pulmonary disease, treated as above. No indication at this time for rate control. Optimize magnesium 2.0/K 4.0 - trop wnl (8) Marijuana abuse: Plan: Marijuana use, former tobacco use Marijuana cessation recommended 48-[id number] smoking history in remission since 2018 Plan DVT PPx: Heparin SQ Admission and Anticipated Discharge Date Admission Date: March 19, 2023 Subjective patient tolerated ice cream with the contents of a liquid vitamin D capsule put in yesterday. She says she has daily coughing nothing worse than usual. Hop efully will continue to augment her vitamin D therapy at this time Physical Exam Physical Exam: patient evaluated she is about her normal self. Oropharynx was inspected due to complaints of sore throat. Posterior pharynx is slightly erythematous but there is no evidence of thrush or significant infection. She does have dysphonia but this has been longstanding card exam is regular lungs are clear at this time Results & Data Results & Data Vital Signs (Past 12 Hours) Vital Signs Temp Pulse Pulse Resp BP Pulse Ox O2 Del Method 03/25/23 15:29 97.9 F 92 H 17 96/66 L 95 Room Air 03/25/23 11:16 97.9 F 105 H 17 114/74 90 Room Air 03/25/23 09:00 Room Air 03/25/23 08:00 72 03/25/23 07:20 88 20 96 Room Air 03/25/23 07:14 97.2 F L 77 18 112/69 95 Room Air PG Care Time/CCT Total # of Minutes Spent Total Time Spent with Patient: Total time spent is greater than 50% in coordination of care (as documented) at patient's floor/unit and/or counseling patient: Coding Level of Care Code 85450 SUB INP/OBS CARE 2/35MIN Diagnoses Acute respiratory failure with hypoxia J96.01 Dysphagia R13.10 Anemia D64.9 Severe protein-calorie malnutrition E43 COPD exacerbation J44.1 Aspiration pneumonia J69.0 LBBB (left bundle branch block) I44.7 Marijuana abuse F12.10
[2023-03-25] MEDS ORDERED: NSS + 20MEQ KCL 20 MEQ/1,000 ML BAG IV SCH (17:45)
[2023-03-25] MEDS: LEVALBUTEROL 1.25 MG/3 ML NEB NEB PRN (20:39)
[2023-03-26] MEDS: D5NSS + 20MEQ KCL 20 MEQ/1,000 ML BAG IV SCH ×2 (00:34→20:46)
[2023-03-26] MEDS: PIPERACILLIN/TAZOBACTAM 4.5 GM in DEXTROSE 5% MINI-B 100 ML IV SCH ×2 (00:34→08:42)
[2023-03-26] MEDS: DOXYCYCLINE HYCLATE 100 MG in DEXTROSE 5% MINI-B 100 ML IV SCH (02:00)
[2023-03-26] MEDS: SODIUM CHLOR 7% 4 ML NEB NEB SCH ×2 (07:27→19:06)
[2023-03-26 07:58] LABS: BUN Creatinine Ratio 16.7 (10-20); Calcium 8.3 mg/dl (8.6-10.3); Creatinine Clr Calc Pharmacy 124.4 ml/min; Est GFR (African American) 148.8 ml/min; Est GFR (Non-African American) 128.4 ml/min
[2023-03-26] MEDS: methylPREDNISolone 20 MG in SYRINGE 0 ML IV SCH (08:42)
[2023-03-26] MEDS: THIAMINE HCL 100 MG in SYRINGE 9 ML IV SCH (08:43)
[2023-03-26] MEDS: UMECLIDINIUM/VILANTEROL 62.5/25MCG 7 PUFFS/INHALER INH SCH (08:43)
[2023-03-26] MEDS: FAMOTIDINE 20 MG in SYRINGE 3 ML IV SCH ×2 (08:43→20:47)
[2023-03-26] MEDS: HEPARIN SOD 5,000 UNIT/0.5 ML VIAL SQ SCH ×2 (08:44→20:47)
[2023-03-26] MEDS: MoRPHine SULFATE 2 MG/ML CARP IV PRN ×2 (08:48→14:45)
[2023-03-26] MEDS ORDERED: SODIUM PHOSPHATE 3 MMOL/1 ML INFUSION IV STA (09:16)
[2023-03-26] MEDS ORDERED: SODIUM PHOSPHATE 30 MMOL in SODIUM CHLORIDE 0.9% 500 ML IV ONE (09:30)
[2023-03-26] MEDS: ERGOCALCIFEROL 50,000 UNITS 1250 MCG CAP PO SCH (16:42)
--- NOTE | 2023-03-26 18:54 | Hospitalist Progress Note ---
Date of Service March 26, 2023 Assessment & Plan (1) Acute respiratory failure with hypoxia: Plan: Acute hypoxic respiratory failure, aspiration with COPD exacerbation, suspected mucous plugging. Followed by [facility] pulm, most recent note indicated patient's alpha-1 antitrypsin level within normal limits.( Phenotype PI*MM, Normal) Septic on admission w/ reported fever, leukocytosis, tachycardia pulmonary source w acute aspiration pneumonia, also confirmed UTI ecoli poa s/p 1500cc bolus on admission (approx 40kg patient/met 30cc/kg sepsis recs) CT chest w/ evidence of chronic aspiration and progressive opacification of left inferior lobe. Suspected mucous plug, endobronchial lesion not excluded. Continues on IV Zosyn/Doxy IV MRSA nares NEGATIVE Methylprednisolone 40mg IV daily Pulmonary toilet -- nebs as needed, hypertonic saline to help with mucus plugging, incentive spirometer/flutter valve, sputum cx as able to produce. ASpiration precautions to be maintained (2) Dysphagia: Plan: Recurrent aspiration, history of achalasia and dysphagia Patient was seen by [facility] in [place], motility study consistent with achalasia and s/p myotomy PEG tube removed 2020. Permanent aspiration risk, patient has declined PEG/J- tube's after removal in 2020 on follow-up and does not wish to be replaced under any circumstances Patulous esophagus re-demonstrated on CT, no change from prior Prior speech eval 2021 noting aspiration of ALL bolus, patient accepted risk of permissive aspiration/declined repeat PEG/J-tube placement (patient confirmed this) Social Services Specialist consulted for malnutrition, supplementation --> Iron panel w/ severe deficiency with iron <10, unsat IBC 311, ferritin 4.4-> Venofer 200mg IV daily while inpatient ordered (BPs low, wanting to prevent further drop) -- B12/folate wnl, pending tsh, adding thiamine iv, vitamin D low cannot take po Continues on Plasma-lyte @ 80cc/hr for now, was NPO, cannot start ppn or tpn as phos remains very low continue parenteral repletion as phos may not replete with low vitamin D will attempt to give vitamin d po, pt refuses core safe for any reason at this time so will try to replete phos to have tpn start in hospital and have pt go to [facility] 03/30/23 24 hour urine phos is ordered if excessive may consider nephrology eval GI medicine recommended neurology evaluation for etiology of swallowing issue noted elevated protein in face of malnourishment , check electrophoresis and per discussion normal mri brain MRI c spine with critical spinal stenosis as commented on by radiology, I asked Dr. Marks to review the patient's MR C-spine he does not feel she is critical spinal stenosis but there are some minor changes none of which could impact her swallowing. Currently agreeable to TPN. discussed risks, explained to patient that each option has its risks, but it is preferable to use your gut if possible. (3) Anemia: Plan: Chronic anemia, hx transfusions, severely iron deficient and chronic disease from poor nutrition supplemented iv iron (4) Severe protein-calorie malnutrition: Plan: BMI 15, weight 39.7kg. Poor nutrition status at baseline 2nd to dysphagia/achalasia at baseline Chronic aspiration, speech consult deferred as likely to have had no interval change --> placed given patient WANTING TO CONTINUE TO EAT FOR DOCUMENTATION PURPOSES PT is with consideration of outpt TPN, [facility] that [facility] a follow up clinic for outpt TPN with Dr Leung (5) COPD exacerbation: Plan: COPD Home Anoro continued PFTs 2021: Severe obstructive lung dysfunction with bronchodilator response, mildly decreased DLCO. Management of acute exacerbation as above (6) Aspiration pneumonia: Plan: - Abx/tx as noted, aspiration precautions, speech consulted as above as well as nutrition (7) LBBB (left bundle branch block): Plan: Sinus tachycardia with left bundle branch block - EKG as above, no acute ischemic change. Patient had some pain with coughing, but denied any chest pain at rest. She endorses weakness, but outside of this has not had chest pain or chest pressure with exertion Reactive to volume depletion and pulmonary disease, treated as above. No in dication at this time for rate control. Optimize magnesium 2.0/K 4.0 - trop wnl (8) Marijuana abuse: Plan: Marijuana use, former tobacco use Marijuana cessation recommended [id number] smoking history in remission since 2019 Plan DVT PPx: Heparin SQ Admission and Anticipated Discharge Date Admission Date: March 19, 2023 Subjective Patient appears frustrated by her current situation. She has decided on TPN and is upset top be discussing this. Review of Systems Review of Systems: All systems reviewed & are unremarkable except as noted in HPI & below Physical Exam Physical Exam: patient evaluated she is about her normal self. Oropharynx was inspected due to complaints of sore throat. Posterior pharynx is slightly erythematous but there is no evidence of thrush or significant infection. She does have dysphonia but this has been longstanding card exam is regular lungs are clear at this time Results & Data Results & Data Vital Signs (Past 12 Hours) Vital Signs Temp Pulse Pulse Resp BP Pulse Ox O2 Del Method 03/26/23 16:00 91 H 03/26/23 15:31 36.5 C 91 H 19 112/75 90 Room Air 03/26/23 10:25 36.3 C L 76 19 111/74 93 Room Air 03/26/23 08:00 36.3 C L 82 17 117/76 93 Room Air 03/26/23 07:32 87 20 93 Room Air 03/26/23 07:23 Room Air 03/26/23 07:23 67 PG Care Time/CCT Total # of Minutes Spent Total Time Spent with Patient: Total time spent is greater than 50% in coordination of care (as documented) at patient's floor/unit and/or counseling patient: Coding Level of Care Code 23777 SUB INP/OBS CARE 2/35MIN Diagnoses Acute respiratory failure with hypoxia J96.01 Dysphagia R13.10 Anemia D64.9 Severe protein-calorie malnutrition E43 COPD exacerbation J44.1 Aspiration pneumonia J69.0 LBBB (left bundle branch block) I44.7 Marijuana abuse F12.10
[2023-03-26] MEDS: LEVALBUTEROL 1.25 MG/3 ML NEB NEB PRN (19:06)
[2023-03-27 06:29] LABS: Hemoglobin 9.3 g/dl (12.0-16.0); Mean Corpuscular Hemoglobin 21.6 pg (25.0-34.0); Mean Corpuscular Hgb Conc 29.1 g/dL (32.0-36.0); Mean Corpuscular Volume 74.4 fL (80.0-100.0); Mean Platelet Volume 9.3 fL (9.4-12.4); Platelet Count 303 K/uL (130-400); RDW Coefficient of Variation 18.5 % (11.5-14.5); RDW Standard Deviation 44.9 fL (36.4-46.3); White Blood Count 5.52 K/ul (4.8-10.8)
[2023-03-27 07:10] LABS: Basophils # (auto) 0.03 K/uL (0.00-0.20); Basophils % (auto) 0.5 %; Eosinophils # (auto) 0.03 K/uL (0.00-0.50); Eosinophils % (auto) 0.5 %; Hypochromasia Present; Immature Granulocytes # (auto) 0.02 K/uL (0.01-0.20); Immature Granulocytes % (auto) 0.4 %; Lymphocytes # (auto) 2.33 K/uL (1.20-3.40); Lymphocytes % (auto) 42.2 %; Monocytes # (auto) 0.39 K/uL (0.11-0.59); Monocytes % (auto) 7.1 %; Neutrophils # (auto) 2.72 K/uL (1.40-6.50); Neutrophils % (auto) 49.3 %; Polychromasia 1+
[2023-03-27 07:12] LABS: Abnormal Protein Band 1 DNR mg/24 h (NONE DETECTED); Abnormal Protein Band 2 DNR mg/24 h (NONE DETECTED); Abnormal Protein Band 3 DNR mg/24 h (NONE DETECTED); Creatinine, 24 hr Urine 0.46 g/24 h (0.50-2.15); Protein, Urine 24 Hour 91 mg/24 h (<150); Ur Protein/Creatinine Rat mg/g 200 mg/g creat (<150)
[2023-03-27] MEDS: SODIUM CHLOR 7% 4 ML NEB NEB SCH ×2 (07:16→19:34)
[2023-03-27] MEDS: MoRPHine SULFATE 2 MG/ML CARP IV PRN ×2 (09:29→17:26)
[2023-03-27] MEDS: FAMOTIDINE 20 MG in SYRINGE 3 ML IV SCH ×2 (09:30→21:36)
[2023-03-27] MEDS: THIAMINE HCL 100 MG in SYRINGE 9 ML IV SCH (09:31)
[2023-03-27] MEDS: methylPREDNISolone 20 MG in SYRINGE 0 ML IV SCH (09:31)
[2023-03-27] MEDS: UMECLIDINIUM/VILANTEROL 62.5/25MCG 7 PUFFS/INHALER INH SCH (09:31)
[2023-03-27 10:32] LABS: Albumin 3.1 g/dL (3.8-4.8); Aldolase 4.5 U/L (< OR = 8.1); Alpha 1 Globulin 0.4 g/dL (0.2-0.3); Alpha 2 Globulin 0.7 g/dL (0.5-0.9); Beta-1-Globulin 0.5 g/dL (0.4-0.6); Beta-2-Globulin 0.6 g/dL (0.2-0.5); Monoclonal Protein Band 1 DNR g/dL (NONE DETECTED); Monoclonal Protein Band 2 DNR g/dL (NONE DETECTED); Monoclonal Protein Band 3 DNR g/dL (NONE DETECTED); Total Protein 6.3 g/dL (6.1-8.1)
[2023-03-27 11:38] LABS: Anion Gap 5 (3-11); Calcium 8.4 mg/dl (8.6-10.3); Carbon Dioxide 28 mmol/L (21-32); Chloride 110 mmol/L (98-107); Potassium 3.7 mmol/L (3.5-5.1); Sodium 143 mmol/L (136-145)
[2023-03-27 11:44] LABS: BUN Creatinine Ratio 12.5 (10-20); Blood Urea Nitrogen 4 mg/dl (6-23); Creatinine Clr Calc Pharmacy 136.6 ml/min; Est GFR (African American) > 150.0 ml/min; Est GFR (Non-African American) 133.5 ml/min; Glucose 92 mg/dl (70-99(Fasting))
[2023-03-27 11:49] LABS: Phosphorus < 1.0 mg/dl (2.5-4.9)
[2023-03-27 12:11] LABS: Appearance Urine Cloudy (Clear); Bacteria Urine Automated Negative (Negative); Bilirubin Urine Negative (Negative); Blood Urine 3+ (Negative); Color Urine Orange; Epithelial Cell Urine Auto >30 /lpf (0-5); Glucose Urine UA Negative (Negative); Ketones Urine Negative (Negative); Leukocyte Esterase Urine Trace (Negative); Nitrite Urine Negative (Negative); Protein Urine Trace (Negative); RBC Urine Automated >30 /hpf (0-4); Specific Gravity Urine 1.013 (1.000-1.030); Urobilinogen Urine Negative (Negative)
[2023-03-27] MEDS ORDERED: SODIUM PHOSPHATE 3 MMOL/1 ML INFUSION IV STA (12:20)
[2023-03-27] MEDS ORDERED: SODIUM PHOSPHATE 40 MMOL in SODIUM CHLORIDE 0.9% 1,000 ML IV ONE (12:30)
--- NOTE | 2023-03-27 15:13 | Communication Note ---
Date of Service: March 27, 2023 Dr. Camejo notified me by tiger text that the pt has decided that she would like to have a PEG. I spoke w the pt. She verifies that she would like to have a PEG and tells me that this is because her primary hospitalist physician tells her that it is safer than TPN. She asks to have Dr. Hurtado place the PEG. Unfortunately, he is working in a different location - I offered to arrange OP PEG w Dr. Hurtado - pt is considering but was unsure if she felt OK about discharge on TPN to get PEG as an OP. Unfortunately, the [facility] physicians here Thursday through Apr 09 do not do PEGs, so our first [facility] availability for a PEG is ThursdayApr 10. I explained this to Dr. Pringle and suggested the alternatives of OP PEG w Dr. Hurtado after pt's DC on TPN or if PEG needs to be placed next week as an IP, then consider IR referral or consider consulting [facility] to ask for an endoscopic PEG placement.
[2023-03-27] MEDS: CHOLECALCIFEROL 5,000 UNITS 125 MCG TAB PO SCH (17:16)
--- NOTE | 2023-03-27 22:50 | Hospitalist Progress Note ---
Date of Service March 27, 2023 Assessment & Plan (1) Acute respiratory failure with hypoxia: Plan: Acute hypoxic respiratory failure, aspiration with COPD exacerbation, suspected mucous plugging. Followed by [facility] pulm, most recent note indicated patient's alpha-1 antitrypsin level within normal limits.( Phenotype PI*MM, Normal) Septic on admission w/ reported fever, leukocytosis, tachycardia pulmonary source w acute aspiration pneumonia, also confirmed UTI ecoli poa s/p 1500cc bolus on admission (approx 40kg patient/met 30cc/kg sepsis recs) CT chest w/ evidence of chronic aspiration and progressive opacification of left inferior lobe. Suspected mucous plug, endobronchial lesion not excluded. Continues on IV Zosyn/Doxy IV MRSA nares NEGATIVE Methylprednisolone 40mg IV daily Pulmonary toilet -- nebs as needed, hypertonic saline to help with mucus plugging, incentive spirometer/flutter valve, sputum cx as able to produce. ASpiration precautions to be maintained (2) Dysphagia: Plan: Recurrent aspiration, history of achalasia and dysphagia Patient was seen by [facility] in 2019, motility study consistent with achalasia and s/p myotomy PEG tube removed 2020. Permanent aspiration risk, patient has declined PEG/J- tube's after removal in 2020 on follow-up and does not wish to be replaced under any circumstances Patulous esophagus re-demonstrated on CT, no change from prior Prior speech eval 2021 noting aspiration of ALL bolus, patient accepted risk of permissive aspiration/declined repeat PEG/J-tube placement (patient confirmed this) Hybrid Car Mechanic consulted for malnutrition, supplementation --> Iron panel w/ severe deficiency with iron <10, unsat IBC 311, ferritin 4.4-> Venofer 200mg IV daily while inpatient ordered (BPs low, wanting to prevent further drop) -- B12/folate wnl, pending tsh, adding thiamine iv, vitamin D low cannot take po Continues on Plasma-lyte @ 80cc/hr for now, was NPO, cannot start ppn or tpn as phos remains very low continue parenteral repletion as phos may not replete with low vitamin D will attempt to give vitamin d po, pt refuses core safe for any reason at this time so will try to replete phos to have tpn start in hospital and have pt go to [facility] 03/[facility]/23 24 hour urine phos is ordered if excessive may consider nephrology eval GI medicine recommended neurology evaluation for etiology of swallowing issue noted elevated protein in face of malnourishment , check electrophoresis and per discussion normal mri brain MRI c spine with critical spinal stenosis as commented on by radiology, I asked Dr. Marks to review the patient's MR C-spine he does not feel she is critical spinal stenosis but there are some minor changes none of which could impact her swallowing. Given hypophosphatemia, this gives us time to further discuss the options available. Had extensive discussion with patient and spouse regarding TPN, comfort feeding and PEG tube placement. Discussed risk and benefits of all of the options. Patient is now choosing PEG tube as this is something she handled in the past. Patient however would like a heading machine operator as she feels she only gained about 5 pounds on the peg tube feeds. (3) Anemia: Plan: Chronic anemia, hx transfusions, severely iron deficient and chronic disease from poor nutrition supplemented iv iron (4) Severe protein-calorie malnutrition: Plan: BMI 15, weight 39.7kg. Poor nutrition status at baseline 2nd to dysphagia/achalasia at baseline Chronic aspiration, speech consult deferred as likely to have had no interval change --> placed given patient WANTING TO CONTINUE TO EAT FOR DOCUMENTATION PURPOSES PT is with consideration of outpt TPN, [facility] that [facility] a follow up clinic for outpt TPN with Dr Leung (5) COPD exacerbation: Plan: COPD Home Anoro continued PFTs 2021: Severe obstructive lung dysfunction with bronchodilator response, mildly decreased DLCO. Management of acute exacerbation as above (6) Aspiration pneumonia: Plan: - Abx/tx as noted, aspiration precautions, speech consulted as above as well as nutrition (7) LBBB (left bundle branch block): Plan: Sinus tachycardia with left bundle branch block - EKG as above, no acute ischemic change. Patient had some pain with coughing, but denied any chest pain at rest. She endorses weakness, but outside of this has not had chest pain or chest pressure with exertion Reactive to volume depletion and pulmonary disease, treated as above. No indication at this time for rate control. Optimize magnesium 2.0/K 4.0 - trop wnl (8) Marijuana abuse: Plan: Marijuana use, former tobacco use Marijuana cessation recommended [id number] smoking history in remission since 2019 Plan DVT PPx: Heparin SQ Admission and Anticipated Discharge Date Admission Date: March 19, 2023 Subjective Patient reports no new symptoms. Review of Systems Review of Systems: All systems reviewed & are unremarkable except as noted in HPI & below Physical Exam Physical Exam: patient evaluated she is about her normal self. Oropharynx was inspected due to complaints of sore throat. Posterior pharynx is slightly erythematous but there is no evidence of thrush or significant infection. She does have dysphonia but this has been longstanding card exam is regular lungs are clear at this time Results & Data Results & Data Vital Signs (Past 12 Hours) Vital Signs Temp Pulse Pulse Pulse Resp BP Pulse Ox 03/27/23 20:13 03/27/23 19:34 74 17 97 03/27/23 19:19 36.4 C L 74 15 108/67 6 L 03/27/23 16:00 85 03/27/23 15:54 36.7 C 89 18 112/71 95 03/27/23 11:49 36.6 C 85 18 117/72 93 O2 Del Method 03/27/23 20:13 Room Air 03/27/23 19:34 Room Air 03/27/23 19:19 Room Air 03/27/23 16:00 03/27/23 15:54 Room Air 03/27/23 11:49 Room Air PG Care Time/CCT Total # of Minutes Spent Total Time Spent with Patient: Total time spent is greater than 50% in coordination of care (as documented) at patient's floor/unit and/or counseling patient: Prolonged Care Time Prolonged Care Time: Yes Total Prolonged Care Time: 65 10:30 to 11:35 Coding Level of Care Code 31723 SUB INP/OBS CARE 3/50MIN (25 - SIGNIFICANT, SEPARATELY IDENTIFIABLE ) Diagnoses Acute respiratory failure with hypoxia J96.01 Dysphagia R13.10 Anemia D64.9 Severe protein-calorie malnutrition E43 COPD exacerbation J44.1 Aspiration pneumonia J69.0 LBBB (left bundle branch block) I44.7 Marijuana abuse F12.10 Additional Codes Prolonged Care Time - Prolonged Care Time: Yes ([id number]) Time Spent (min) 65
[2023-03-27] MEDS ORDERED: PLASMA-LYTE A 1,000 ML IV SCH (23:00)
[2023-03-28] MEDS ORDERED: SODIUM PHOSPHATE 3 MMOL/1 ML INFUSION IV ONE (00:53)
[2023-03-28] MEDS: LEVALBUTEROL 1.25 MG/3 ML NEB NEB PRN (07:18)
[2023-03-28] MEDS: SODIUM CHLOR 7% 4 ML NEB NEB SCH (07:19)
--- NOTE | 2023-03-28 09:06 | Hospitalist Progress Note ---
Date of Service March 28, 2023 Assessment & Plan (1) Acute respiratory failure with hypoxia: Plan: Acute hypoxic respiratory failure, aspiration with COPD exacerbation, suspected mucous plugging. Followed by [facility] pulm, most recent note indicated patient's alpha-1 antitrypsin level within normal limits.( Phenotype PI*MM, Normal) Septic on admission w/ reported fever, leukocytosis, tachycardia pulmonary source w acute aspiration pneumonia, also confirmed UTI ecoli poa s/p 1500cc bolus on admission (approx 40kg patient/met 30cc/kg sepsis recs) CT chest w/ evidence of chronic aspiration and progressive opacification of left inferior lobe. Suspected mucous plug, endobronchial lesion not excluded. Continues on IV Zosyn/Doxy IV MRSA nares NEGATIVE Methylprednisolone 40mg IV daily Pulmonary toilet -- nebs as needed, hypertonic saline to help with mucus plugging, incentive spirometer/flutter valve, sputum cx as able to produce. ASpiration precautions to be maintained (2) Dysphagia: Plan: Recurrent aspiration, history of achalasia and dysphagia Patient was seen by [facility] in 2019, motility study consistent with achalasia and s/p myotomy PEG tube removed 2020. 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 Patient agreeable to having PEG tube placed by [facility] on thursday or thursday. Patient does not want Parenteral nutrition prior to PEG tube. This was recommended as she will likely have refeeding syndrome once she nutrition intake initiates. Place on IVF with dextrose over weekend. GI medicine recommended neurology evaluation for etiology of swallowing issue noted elevated protein in face of malnourishment , check electrophoresis and per discussion normal mri brain MRI c spine with critical spinal stenosis as commented on by radiology, I asked Dr. Marks to review the patient's MR C-spine he does not feel she is critical spinal stenosis but there are some minor changes none of which could impact her swallowing. (3) Anemia: Plan: Chronic anemia, hx transfusions, severely iron deficient and chronic disease from poor nutrition supplemented iv iron (4) Severe protein-calorie malnutrition: Plan: BMI 15, weight 39.7kg. Poor nutrition status at baseline 2nd to dysphagia/achalasia at baseline Chronic aspiration, speech consult deferred as likely to have had no interval change --> placed given patient WANTING TO CONTINUE TO EAT FOR DOCUMENTATION PURPOSES PT is with consideration of outpt TPN, [facility] feels that [facility] has a follow up clinic for outpt TPN with Dr Leung (5) COPD exacerbation: Plan: COPD Home Anoro continued PFTs 2021: Severe obstructive lung dysfunction with bronchodilator response, mildly decreased DLCO. Management of acute exacerbation as above (6) Aspiration pneumonia: Plan: - Abx/tx as noted, aspiration precautions, speech consulted as above as well as nutrition (7) LBBB (left bundle branch block): Plan: Sinus tachycardia with left bundle branch block - EKG as above, no acute ischemic change. Patient had some pain with coughing, but denied any chest pain at rest. She endorses weakness, but outside of this has not had chest pain or chest pressure with exertion Reactive to volume depletion and pulmonary disease, treated as above. No indication at this time for rate control. Optimize magnesium 2.0/K 4.0 - trop wnl (8) Marijuana abuse: Plan: Marijuana use, former tobacco use Marijuana cessation recommended [id number] smoking history in remission since 2018 Plan DVT PPx: Heparin SQ Admission and Anticipated Discharge Date Admission Date: March 19, 2023 Subjective Patient is reporting no new symptoms. Review of Systems Review of Systems: All systems reviewed & are unremarkable except as noted in HPI & below Physical Exam Physical Exam: patient evaluated she is about her normal self. \ She does have dysphonia but this has been longstanding card exam is regular lungs are clear at this time Results & Data Results & Data Vital Signs (Past 12 Hours) Vital Signs Temp Pulse Resp BP Pulse Ox O2 Del Method 03/28/23 07:39 36.7 C 72 16 109/70 94 Room Air 03/28/23 07:19 77 16 98 03/28/23 03:25 36.4 C L 73 16 114/74 94 Room Air 03/27/23 23:05 36.4 C L 65 15 103/62 95 Room Air PG Care Time/CCT Total # of Minutes Spent Total Time Spent with Patient: Total time spent is greater than 50% in coordination of care (as documented) at patient's floor/unit and/or counseling patient: Coding Level of Care Code 15352 SUB INP/OBS CARE 3/50MIN Diagnoses Acute respiratory failure with hypoxia J96.01 Dysphagia R13.10 Anemia D64.9 Severe protein-calorie malnutrition E43 COPD exacerbation J44.1 Aspiration pneumonia J69.0 LBBB (left bundle branch block) I44.7 Marijuana abuse F12.10
[2023-03-28] MEDS: FAMOTIDINE 20 MG in SYRINGE 3 ML IV SCH ×2 (12:04→20:25)
[2023-03-28] MEDS: CHOLECALCIFEROL 5,000 UNITS 125 MCG TAB PO SCH (12:04)
[2023-03-28] MEDS: POTASSIUM CHLORIDE 40 MEQ in D5W AND NSS 1,000 ML IV SCH (12:05)
[2023-03-28] MEDS: UMECLIDINIUM/VILANTEROL 62.5/25MCG 7 PUFFS/INHALER INH SCH (12:05)
[2023-03-28] MEDS: THIAMINE HCL 100 MG in SYRINGE 9 ML IV SCH (12:05)
[2023-03-28 13:31] LABS: Hematocrit (blood only) 30.8 % (37.0-47.0); Hemoglobin 9.2 g/dl (12.0-16.0); Mean Corpuscular Hemoglobin 21.6 pg (25.0-34.0); Mean Corpuscular Hgb Conc 29.9 g/dL (32.0-36.0); Mean Corpuscular Volume 72.5 fL (80.0-100.0); Mean Platelet Volume 9.9 fL (9.4-12.4); Platelet Count 318 K/uL (130-400); RDW Coefficient of Variation 19.6 % (11.5-14.5); RDW Standard Deviation 44.4 fL (36.4-46.3); Red Blood Count 4.25 M/uL (4.20-5.40); White Blood Count 6.04 K/ul (4.8-10.8)
[2023-03-28 14:00] LABS: Anion Gap 5 (3-11); BUN Creatinine Ratio 10.7 (10-20); Blood Urea Nitrogen 3 mg/dl (6-23); Calcium 8.1 mg/dl (8.6-10.3); Carbon Dioxide 28 mmol/L (21-32); Chloride 106 mmol/L (98-107); Creatinine Clr Calc Pharmacy 155.3 ml/min; Est GFR (African American) > 150.0 ml/min; Est GFR (Non-African American) 139.5 ml/min; Glucose 94 mg/dl (70-99(Fasting)); Phosphorus 1.9 mg/dl (2.5-4.9); Potassium 3.5 mmol/L (3.5-5.1); Sodium 139 mmol/L (136-145)
[2023-03-28] MEDS: methylPREDNISolone 20 MG in SYRINGE 0 ML IV SCH (14:35)
[2023-03-28] MEDS: MoRPHine SULFATE 2 MG/ML CARP IV PRN ×2 (14:44→20:30)
[2023-03-28] MEDS ORDERED: SODIUM PHOSPHATE 3 MMOL/1 ML INFUSION IV STA (21:44)
[2023-03-28] MEDS ORDERED: SODIUM PHOSPHATE 40 MMOL in SODIUM CHLORIDE 0.9% 1,000 ML IV ONE ×2 (22:30)
[2023-03-29] MEDS: POTASSIUM CHLORIDE 40 MEQ in D5W AND NSS 1,000 ML IV SCH (05:37)
[2023-03-29 06:22] LABS: Hematocrit (blood only) 29.3 % (37.0-47.0); Hemoglobin 8.5 g/dl (12.0-16.0); Mean Corpuscular Hemoglobin 21.8 pg (25.0-34.0); Mean Corpuscular Volume 75.1 fL (80.0-100.0); Mean Platelet Volume 9.7 fL (9.4-12.4); Platelet Count 269 K/uL (130-400); RDW Coefficient of Variation 19.8 % (11.5-14.5); White Blood Count 4.73 K/ul (4.8-10.8)
[2023-03-29 06:36] LABS: Alanine Aminotransferase 26 U/L (7-52); Albumin Level 2.7 gm/dl (3.4-5.0); Alkaline Phosphatase 93 U/L (34-104); Anion Gap 1 (3-11); Aspartate Aminotransferase 20 U/L (13-39); BUN Creatinine Ratio 7.7 (10-20); Bilirubin Direct 0.1 mg/dl (0-0.2); Bilirubin,Total 0.5 mg/dl (0.2-1.0); Blood Urea Nitrogen 2 mg/dl (6-23); Calcium 7.9 mg/dl (8.6-10.3); Carbon Dioxide 30 mmol/L (21-32); Chloride 111 mmol/L (98-107); Creatinine Clr Calc Pharmacy 167.2 ml/min; Est GFR (African American) > 150.0 ml/min; Est GFR (Non-African American) 142.9 ml/min; Glucose 87 mg/dl (70-99(Fasting)); Magnesium 1.8 mg/dl (1.7-2.4); Phosphorus 2.6 mg/dl (2.5-4.9); Potassium 3.9 mmol/L (3.5-5.1); Sodium 142 mmol/L (136-145); Total Protein 4.9 gm/dl (6.0-8.3)
[2023-03-29] MEDS: methylPREDNISolone 20 MG in SYRINGE 0 ML IV SCH (09:03)
[2023-03-29] MEDS: THIAMINE HCL 100 MG in SYRINGE 9 ML IV SCH (09:03)
[2023-03-29] MEDS: CHOLECALCIFEROL 5,000 UNITS 125 MCG TAB PO SCH (09:05)
[2023-03-29] MEDS: UMECLIDINIUM/VILANTEROL 62.5/25MCG 7 PUFFS/INHALER INH SCH (09:05)
[2023-03-29] MEDS: MoRPHine SULFATE 2 MG/ML CARP IV PRN ×2 (09:18→16:58)
[2023-03-29] MEDS: FAMOTIDINE 20 MG in SYRINGE 3 ML IV SCH ×2 (12:57→20:09)
[2023-03-29] MEDS ORDERED: SODIUM PHOSPHATE 3 MMOL/1 ML INFUSION IV STA (14:55)
[2023-03-29] MEDS ORDERED: SODIUM PHOSPHATE 21 MMOL in DEXTROSE 5% 500 ML IV ONE (15:15)
--- NOTE | 2023-03-29 17:04 | Hospitalist Progress Note ---
Date of Service March 29, 2023 Assessment & Plan (1) Acute respiratory failure with hypoxia: Plan: Acute hypoxic respiratory failure, aspiration with COPD exacerbation, suspected mucous plugging. Followed by [facility] pul[facility], most recent note indicated patient's alpha-1 antitrypsin level within normal limits.( Phenotype PI*MM, Normal) Septic on admission w/ reported fever, leukocytosis, tachycardia pulmonary source w acute aspiration pneumonia, also confirmed UTI ecoli poa s/p 1500cc bolus on admission (approx 40kg patient/met 30cc/kg sepsis recs) CT chest w/ evidence of chronic aspiration and progressive opacification of left inferior lobe. Suspected mucous plug, endobronchial lesion not excluded. Continues on IV Zosyn/Doxy IV MRSA nares NEGATIVE Methylprednisolone 40mg IV daily Pulmonary toilet -- nebs as needed, hypertonic saline to help with mucus plugging, incentive spirometer/flutter valve, sputum cx as able to produce. ASpiration precautions to be maintained (2) Dysphagia: Plan: Recurrent aspiration, history of achalasia and dysphagia Patient was seen by [facility] in 2019, motility study consistent with achalasia and s/p myotomy PEG tube removed 2020. 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 Patient agreeable to having PEG tube placed by [facility] on thursday or thursday. Patient does not want Parenteral nutrition prior to PEG tube. This was recommended as she will likely have refeeding syndrome once she nutrition intake initiates. Place on IVF with dextrose over weekend. replacing phosphorus on 03/29 GI medicine recommended neurology evaluation for etiology of swallowing issue noted elevated protein in face of malnourishment , check electrophoresis and per discussion normal mri brain MRI c spine with critical spinal stenosis as commented on by radiology, I asked Dr. Marks to review the patient's MR C-spine he does not feel she is critical spinal stenosis but there are some minor changes none of which could impact her swallowing. (3) Anemia: Plan: Chronic anemia, hx transfusions, severely iron deficient and chronic disease from poor nutrition supplemented iv iron (4) Severe protein-calorie malnutrition: Plan: BMI 15, weight 39.7kg. Poor nutrition status at baseline 2nd to dysphagia/achalasia at baseline Chronic aspiration, speech consult deferred as likely to have had no interval change --> placed given patient WANTING TO CONTINUE TO EAT FOR DOCUMENTATION PURPOSES PT [facility] up clinic for outpt TPN with Dr Leung (5) COPD exacerbation: Plan: COPD Home Anoro continued PFTs 2021: Severe obstructive lung dysfunction with bronchodilator response, mildly decreased DLCO. Management of acute exacerbation as above (6) Aspiration pneumonia: Plan: - Abx/tx as noted, aspiration precautions, speech consulted as above as well as nutrition (7) LBBB (left bundle branch block): Plan: Sinus tachycardia with left bundle branch block - EKG as above, no acute ischemic change. Patient had some pain with coughing, but denied any chest pain at rest. She endorses weakness, but outside of this has not had chest pain or chest pressure with exertion Reactive to volume depletion and pulmonary disease, treated as above. No indication at this time for rate control. Optimize magnesium 2.0/K 4.0 - trop wnl (8) Marijuana abuse: Plan: Marijuana use, former tobacco use Marijuana cessation recommended 13-[id number]-tgvi smoking history in remission since 2018 Plan DVT PPx: Heparin SQ Admission and Anticipated Discharge Date Admission Date: March 19, 2023 Subjective Patient reports no new symptoms. Review of Systems Review of Systems: All systems reviewed & are unremarkable except as noted in HPI & below Physical Exam Physical Exam: patient evaluated she is about her normal self. She does have dysphonia but this has been longstanding card exam is regular lungs are clear at this time Results & Data Results & Data Vital Signs (Past 12 Hours) Vital Signs Temp Pulse Pulse Resp BP Pulse Ox O2 Del Method 03/29/23 15:51 36.5 C 79 16 105/69 93 Room Air 03/29/23 12:00 81 03/29/23 11:53 36.5 C 81 16 112/72 91 Room Air 03/29/23 07:45 36.6 C 71 16 109/66 94 Room Air PG Care Time/CCT Total # of Minutes Spent Total Time Spent with Patient: Total time spent is greater than 50% in coordination of care (as documented) at patient's floor/unit and/or counseling patient: Coding Level of Care Code 99726 SUB INP/OBS CARE 2/35MIN Diagnoses Acute respiratory failure with hypoxia J96.01 Dysphagia R13.10 Anemia D64.9 Severe protein-calorie malnutrition E43 COPD exacerbation J44.1 Aspiration pneumonia J69.0 LBBB (left bundle branch block) I44.7 Marijuana abuse F12.10
[2023-03-30] MEDS ORDERED: POTASSIUM PHOS 3 MMOL/1 ML INFUSION IV STA (00:20)
[2023-03-30] MEDS ORDERED: POTASSIUM PHOSPHATE 15 MMOL in SODIUM CHLORIDE 0.9% 250 ML IV ONE (00:45)
[2023-03-30] MEDS: POTASSIUM CHLORIDE 40 MEQ in D5W AND NSS 1,000 ML IV SCH (02:08)
[2023-03-30 07:05] LABS: Hematocrit (blood only) 30.3 % (37.0-47.0); Hemoglobin 8.8 g/dl (12.0-16.0); Mean Corpuscular Volume 75.8 fL (80.0-100.0); Mean Platelet Volume 9.7 fL (9.4-12.4); Platelet Count 291 K/uL (130-400); RDW Coefficient of Variation 20.4 % (11.5-14.5); RDW Standard Deviation 46.2 fL (36.4-46.3); White Blood Count 5.03 K/ul (4.8-10.8)
[2023-03-30 07:41] LABS: Anion Gap 3 (3-11); Blood Urea Nitrogen < 2 mg/dl (6-23); Calcium 8.5 mg/dl (8.6-10.3); Carbon Dioxide 30 mmol/L (21-32); Chloride 110 mmol/L (98-107); Creatinine Clr Calc Pharmacy 158.4 ml/min; Est GFR (African American) > 150.0 ml/min; Est GFR (Non-African American) 139.5 ml/min; Glucose 83 mg/dl (70-99(Fasting)); Magnesium 1.9 mg/dl (1.7-2.4); Phosphorus 1.9 mg/dl (2.5-4.9); Potassium 3.9 mmol/L (3.5-5.1); Sodium 143 mmol/L (136-145)
[2023-03-30] MEDS: methylPREDNISolone 20 MG in SYRINGE 0 ML IV SCH (08:18)
[2023-03-30] MEDS: CHOLECALCIFEROL 5,000 UNITS 125 MCG TAB PO SCH (08:18)
[2023-03-30] MEDS: FAMOTIDINE 20 MG in SYRINGE 3 ML IV SCH ×2 (08:18→21:15)
[2023-03-30] MEDS: UMECLIDINIUM/VILANTEROL 62.5/25MCG 7 PUFFS/INHALER INH SCH (08:19)
[2023-03-30] MEDS: THIAMINE HCL 100 MG in SYRINGE 9 ML IV SCH (08:19)
--- NOTE | 2023-03-30 09:44 | History & Physical Bridge Note ---
Date of Service March 30, 2023 History & Physical Bridge Note I have examined the patient, reviewed the History & Physical and in the interval since the performance of the History & Physical I have noted the following changes of clinical significance: Patient now amenable to PEG replacement. Denies any n/v. No abdominal pain. No f/c or leukocytosis. PE:A&Ox3. Lungs CTA. RRR. Abdomen flat. No tenderness. Prior PEG scar noted in the LUQ. A/P:Patient is a 47 y.o. female with dysphagia and aspiration and poor oral nutrition. -Discussed that PEG placement will not prevent aspiration. -NPO. -EGD with PEG placement will be attempted by Dr. Alejandro and myself today. -Ancef 2 g on-call to GI. -Further recommendations pending results of procedure. Supervising Physician Co-Signing Physician Notes Agree with RACHEL Rollins as above Abd: Soft, NT, ND, prior PEG tube scar Continue current therapy and supportive care Will place PEG tube now
--- NOTE | 2023-03-30 10:10 | Anesthesiology Consultation ---
Date of Service March 30, 2023 Assessment & Plan (1) Encounter for pre-operative examination: Chart Review Chart Review: Acceptable Risk for Surgery History Surgery Operation Date: 03/30/23 17:00 Proposed Procedures p Esophagogastroduodenoscopy Case with Gastric Tube Placement - Nicolas Kennedy Case, DO Height/Weight Height: 5 ft 4 in Weight: 40.4 kg Allergies Allergy/AdvReac Type Severity Reaction Status Date / Time No Known Allergies Allergy Verified 03/19/23 12:09 Medications Home Medications Medication Instructions Recorded Confirmed Last Taken albuterol sulfate 90 mcg/actuation 2 puff inhalation QID PRN 11/28/22 03/19/23 03/19/23 aerosol inhaler Shortness Of Breath #18 grams umeclidinium 62.5 mcg-vilanterol 1 inh inhalation DAILY #60 ea 11/28/22 03/19/23 03/19/23 25 mcg/actuation powdr for inhalation (Anoro Ellipta) Active Medications Generic Name Dose Route Start Last Admin Trade Name Freq PRN Reason Stop Dose Admin Heparin Sodium (Beef Lung) 5 ml 03/22/23 15:38 03/30/23 06:17 Heparin 10 Unit/Ml 5 Ml Flush FLUSH 04/21/23 15:37 5 ml PRN PRN Administration Flush Heparin Sodium (Porcine) 5,000 units 03/19/23 21:00 03/26/23 20:47 Heparin Sod 5,000 Unit/0.5 Ml Vial SQ 04/18/23 20:59 5,000 units Q12 SARITA Administration Famotidine 20 mg/ Syringe 5 mls @ 2.5 mls/min 03/20/23 13:00 03/30/23 08:18 IV 04/19/23 12:59 2.5 mls/min BID SARITA Administration Thiamine HCl 100 mg/ Syringe 10 mls @ 2 mls/min 03/24/23 09:00 03/30/23 08:19 IV 04/23/23 08:59 2 mls/min QAM SARITA Administration Methylprednisolone 20 mg/ 0.32 mls @ 1.5 mls/min 03/25/23 09:00 03/30/23 08:18 Syringe IV 04/24/23 08:59 1.5 mls/min DAILY SARITA Administration Potassium Chloride 40 meq/ 1,020 mls @ 50 mls/hr 03/28/23 11:00 03/30/23 02:08 Dextrose/Sodium Chloride IV 04/27/23 10:59 50 mls/hr .[id number] SARITA Administration Levalbuterol HCl 1.25 mg 03/19/23 12:56 03/28/23 07:18 Levalbuterol 1.25 Mg/3 Ml Neb NEB 04/18/23 14:59 1.25 mg Q4R PRN Administration Wheezing Morphine Sulfate 2 mg 03/24/23 10:00 03/29/23 16:58 Morphine Sulfate 2 Mg/Ml Carp IV 04/07/23 09:59 2 mg Q4 PRN Administration Moderate Pain (Scale 4, 5, 6) Umeclidinium/Vilanterol 1 puffs 03/20/23 09:00 03/30/23 08:19 Umeclidinium/Vilanterol 62.5/25mcg 7 Puffs/Inhaler INH 04/19/23 08:59 1 puffs DAILY SARITA Administration Vitamin D 5,000 units 03/27/23 16:00 03/30/23 08:18 Cholecalciferol 5,000 Units 125 Mcg Tab PO 04/26/23 15:59 Not Given QAM SARITA Past Medical History Medical History Achalasia Acute respiratory failure with hypoxia COVID-19 Ovarian cyst Poor dentition COPD (chronic obstructive pulmonary disease) Difficulty swallowing Difficulty chewing Depression Anxiety Tobacco abuse Marijuana smoker Constipation Arthritis Scoliosis Past Family History Family History Other Family history non-contributory Past Surgical History Surgical History History of esophagogastroduodenoscopy (EGD) Social History Smoking Status: Current every day smoker tobacco type: cigarettes Smoking cigarettes per day: 1 PACK/DAY Do You Dip or Chew Tobacco: No Hx Alcohol Use: No Hx Substance Use: No Physical Exam Vital Signs Last Vital Signs Temp 36.6 C 03/30/23 07:16 Pulse 78 03/30/23 08:00 Resp 18 03/30/23 07:16 BP 108/72 03/30/23 07:16 Pulse Ox 96 03/30/23 09:00 O2 Del Method Room Air 03/30/23 09:00 O2 Flow Rate 1 03/24/23 11:41 FiO2 21 03/27/23 07:16 Testing Laboratory Results 03/30/23 06:14 03/30/23 06:14 Urine Color [place] 03/27/23 11:35 Urine Appearance Cloudy (Clear) A 03/27/23 11:35 Urine pH 7.0 (4.5-7.5) 03/27/23 11:35 Ur Specific [place] 1.013 (1.000-1.030) 03/27/23 11:35 Urine Protein Trace (Negative) H 03/27/23 11:35 Urine Glucose (UA) Negative (Negative) 03/27/23 11:35 Urine Ketones Negative (Negative) 03/27/23 11:35 Urine Nitrite Negative (Negative) 03/27/23 11:35 Ur Leukocyte Esterase Trace (Negative) H 03/27/23 11:35 Urine WBC (Auto) 10-30 /hpf (0-5) H 03/27/23 11:35 Urine RBC (Auto) >30 /hpf (0-4) H 03/27/23 11:35 U Hyaline Cast (Auto) 1-5 /lpf (0-5) 03/27/23 11:35 U Epithel Cells (Auto) >30 /lpf (0-5) H 03/27/23 11:35 Urine Bacteria (Auto) Negative (Negative) 03/27/23 11:35 03/27/23 11:35 Urine Culture - Final Urine,Clean Catch No growth - less than 1,000 colonies/mL. 03/19/23 09:28 Aerobic Blood Culture - Final Blood No growth in Aerobic bottle after 5 days. Anaerobic Blood Culture - Final No growth in Anaerobic bottle after 5 days. 03/19/23 09:17 Aerobic Blood Culture - Final Blood No growth in Aerobic bottle after 5 days. Anaerobic Blood Culture - Final No growth in Anaerobic bottle after 5 days. 03/19/23 12:04 Urine Culture - Final Urine,Clean Catch Escherichia coli Alpha strep. not enterococcus 03/30/23 03/30/23 06:10 00:21 POC Glucose 84 93
[2023-03-30] MEDS ORDERED: ceFAZolin 2000MG 2,000 MG/15 ML SYR IV ONE (10:47)
[2023-03-30] MEDS ORDERED: ceFAZolin 2,000 MG/15 ML IV PUSH IV ONE (10:49)
--- NOTE | 2023-03-30 11:13 | GI REPORT ---
Patient Name: Loulou Pryor Procedure Date: 03/30/2023 10:43 AM Date of : 1975 Admit Type: Inpatient Age: 47 Gender: Female Attending MD: Nicolas Alejandro DO, Procedure: Upper GI endoscopy Providers: Nicolas Alejandro DO Referring MD: Av Pringle MD Indications: Dysphagia Medicines: Monitored Anesthesia Care Complications: No immediate complications. Estimated Blood Loss: Estimated blood loss: none. Procedure: Pre-Anesthesia Assessment: - Prior to the procedure, a History and Physical was performed, and patient medications and allergies were reviewed. The patient's tolerance of previous anesthesia was also reviewed. The risks and benefits of the procedure and the sedation options and risks were discussed with the patient. All questions were answered, and informed consent was obtained. Prior Anticoagulants: The patient has taken no anticoagulant or antiplatelet agents. ASA Grade Assessment: III - A patient with severe systemic disease. After reviewing the risks and benefits, the patient was deemed in satisfactory condition to undergo the procedure. After obtaining informed consent, the endoscope was passed under direct vision. Throughout the procedure, the patient's blood pressure, pulse, and oxygen saturations were monitored continuously. The Scope was introduced through the mouth, and advanced to the second part of duodenum. The upper GI endoscopy was accomplished without difficulty. The patient tolerated the procedure well. Findings: The examined esophagus was normal. Placement of an externally removable PEG with no T-fasteners was successfully completed. The external bumper was at the 2.0 cm marking on the tube. The examined duodenum was normal. Impression: - Normal esophagus. - Normal examined duodenum. - An externally removable PEG placement was successfully completed. - No specimens collected. Recommendation: - [facility] patient to [facility] for [facility] care. - Please follow the post-PEG recommendations including: Nutrition consult for formula and volume, start using PEG today and clean site with soap and water daily and dry thoroughly. Nicolas Alejandro DO 03/30/2023 11:13:47 AM This report has been signed electronically. Note Initiated On: 03/30/2023 10:43 AM Number of Addenda: 0 I attest to the content of the Intraoperative Record and orders documented therein, exceptions below {[id number]}
[2023-03-30] MEDS ORDERED: LIDOCAINE 2% 2 ML VIAL/AMP(20MG/ML) INFIL ONE (11:21)
[2023-03-30] MEDS ORDERED: PROPOFOL IV EMULSION 10 MG/ML 20 ML VIAL IV ONE (11:21)
[2023-03-30] MEDS: MoRPHine SULFATE 2 MG/ML CARP IV PRN ×3 (12:19→20:48)
--- NOTE | 2023-03-30 12:28 | Anesthesiology Progress Note ---
Date of Service March 30, 2023 Anesthesia Post Procedure Vital Signs Vital Signs: Temp Pulse Pulse Pulse Resp BP Pulse Ox 03/30/23 11:49 77 15 125/76 96 03/30/23 11:34 79 16 111/62 94 03/30/23 11:19 91 H 12 100/62 98 03/30/23 10:21 36.9 C 91 H 91 H 16 115/78 94 03/30/23 09:00 03/30/23 08:00 78 03/30/23 07:16 36.6 C 67 18 108/72 94 03/30/23 03:41 36.4 C L 66 16 100/62 95 03/30/23 02:14 55 L 18 98/56 L 98 03/30/23 00:00 52 L 03/29/23 23:19 36.4 C L 55 L 16 96/58 L 94 03/29/23 20:15 03/29/23 19:55 36.4 C L 58 L 17 106/67 96 03/29/23 15:51 36.5 C 79 16 105/69 93 Pulse Ox O2 Del Method O2 Del Method 03/30/23 11:49 Room Air 03/30/23 11:34 Room Air 03/30/23 11:19 Room Air 03/30/23 10:21 Room Air 03/30/23 09:00 96 Room Air 03/30/23 08:00 03/30/23 07:16 Room Air 03/30/23 03:41 Room Air 03/30/23 02:14 Room Air 03/30/23 00:00 03/29/23 23:19 Room Air 03/29/23 20:15 Room Air 03/29/23 19:55 Room Air 03/29/23 15:51 Room Air Pain Intensity Head: Pain Intensity: 5 Transfer of Care Handoff Completed per policy Notes Mental Status: alert / awake / arousable Patient Amnestic to Procedure: Yes Nausea / Vomiting: adequately controlled Pain: adequately controlled Airway Patency, RR, SpO2: stable & adequate BP & HR: stable & adequate Hydration State: stable & adequate Anesthetic Complications: no major complications apparent
[2023-03-30] MEDS ORDERED: SODIUM PHOSPHATE 3 MMOL/1 ML INFUSION IV STA (14:58)
[2023-03-30] MEDS ORDERED: SODIUM PHOSPHATE 40 MMOL in SODIUM CHLORIDE 0.9% 1,000 ML IV ONE (15:30)
--- NOTE | 2023-03-30 22:33 | Hospitalist Progress Note ---
Date of Service March 30, 2023 Assessment & Plan (1) Acute respiratory failure with hypoxia: Plan: Acute hypoxic respiratory failure, aspiration with COPD exacerbation, suspected mucous plugging. Followed by [facility] pulm, most recent note indicated patient's alpha-1 antitrypsin level within normal limits.( Phenotype PI*MM, Normal) Septic on admission w/ reported fever, leukocytosis, tachycardia pulmonary source w acute aspiration pneumonia, also confirmed UTI ecoli poa s/p 1500cc bolus on admission (approx 40kg patient/met 30cc/kg sepsis recs) CT chest w/ evidence of chronic aspiration and progressive opacification of left inferior lobe. Suspected mucous plug, endobronchial lesion not excluded. Continues on IV Zosyn/Doxy IV MRSA nares NEGATIVE Methylprednisolone 40mg IV daily Pulmonary toilet -- nebs as needed, hypertonic saline to help with mucus plugging, incentive spirometer/flutter valve, sputum cx as able to produce. ASpiration precautions to be maintained (2) Dysphagia: Plan: Recurrent aspiration, history of achalasia and dysphagia Patient was seen [place] [facility] [place], motility study consistent with achalasia and s/p myotomy PEG tube removed 2020. Permanent aspiration risk, patient has declined PEG/J- tube's after removal in 2020 on follow-up and does not wish to be replaced under any circumstances Patulous esophagus re-demonstrated on CT, no change from prior Prior speech eval 2021 noting aspiration of ALL bolus, patient accepted risk of permissive aspiration/declined repeat PEG/J-tube placement (patient confirmed this) Deer Farmer consulted for malnutrition, supplementation --> Iron panel w/ severe deficiency with iron <10, unsat IBC 311, ferritin 4.4-> Venofer 200mg IV daily while inpatient ordered (BPs low, wanting to prevent further drop) -- B12/folate wnl, pending tsh, adding thiamine iv, vitamin D low cannot take po Hypophosphatemia PEG tube placed on 03/30 Concenr over refeeding syndrome, patient will be getting aggressive phos replacement GI medicine recommended neurology evaluation for etiology of swallowing issue noted elevated protein in face of malnourishment , check electrophoresis and per discussion normal mri brain MRI c spine with critical spinal stenosis as commented on by radiology, I asked Dr. Marks to review the patient's MR C-spine he does not feel she is critical spinal stenosis but there are some minor changes none of which could impact her swallowing. (3) Anemia: Plan: Chronic anemia, hx transfusions, severely iron deficient and chronic disease from poor nutrition supplemented iv iron (4) Severe protein-calorie malnutrition: Plan: BMI 15, weight 39.7kg. Poor nutrition status at baseline 2nd to dysphagia/achalasia at baseline Chronic aspiration, speech consult deferred as likely to have had no interval change --> placed given patient WANTING TO CONTINUE TO EAT FOR DOCUMENTATION PURPOSES PT is with consideration of outpt TPN, pretty Ellsworth feels that Pretty has a follow up clinic for outpt TPN with Dr Leung (5) COPD exacerbation: Plan: COPD Home Anoro continued PFTs 2021: Severe obstructive lung dysfunction with bronchodilator response, mildly decreased DLCO. Management of acute exacerbation as above (6) Aspiration pneumonia: Plan: - Abx/tx as noted, aspiration precautions, speech consulted as above as well as nutrition (7) LBBB (left bundle branch block): Plan: Sinus tachycardia with left bundle branch block - EKG as above, no acute ischemic change. Patient had some pain with coughing, but denied any chest pain at rest. She endorses weakness, but outside of this has not had chest pain or chest pressure with exertion Reactive to volume depletion and pulmonary disease, treated as above. No indication at this time for rate control. Optimize magnesium 2.0/K 4.0 - trop wnl (8) Marijuana abuse: Plan: Marijuana use, former tobacco use Marijuana cessation recommended [id number] smoking history in remission since 2019 Plan DVT PPx: Heparin SQ Admission and Anticipated Discharge Date Admission Date: March 19, 2023 Subjective 47 yo female reports she has some pain after peg tube placed. Patient reports no new symptoms. SHe has questions as to when she will have feeding. Review of Systems Review of Systems: All systems reviewed & are unremarkable except as noted in HPI & below Physical Exam Physical Exam: patient evaluated she is about her normal self. She does have dysphonia but this has been longstanding card exam is regular lungs are clear at this time Results & Data Results & Data Vital Signs (Past 12 Hours) Vital Signs Temp Pulse Pulse Resp BP Pulse Ox O2 Del Method 03/30/23 19:43 36.6 C 93 H 18 116/79 92 Room Air 03/30/23 16:22 36.6 C 101 H 18 120/79 93 Room Air 03/30/23 14:58 98 H 03/30/23 14:03 88 03/30/23 12:56 36.4 C L 81 18 120/80 93 Room Air 03/30/23 11:49 77 15 125/76 96 Room Air 03/30/23 11:34 79 16 111/62 94 Room Air 03/30/23 11:19 91 H 12 100/62 98 Room Air PG Care Time/CCT Total # of Minutes Spent Total Time Spent with Patient: Total time spent is greater than 50% in coordination of care (as documented) at patient's floor/unit and/or counseling patient: Coding Level of Care Code 16615 SUB INP/OBS CARE 2/35MIN Diagnoses Acute respiratory failure with hypoxia J96.01 Dysphagia R13.10 Anemia D64.9 Severe protein-calorie malnutrition E43 COPD exacerbation J44.1 Aspiration pneumonia J69.0 LBBB (left bundle branch block) I44.7 Marijuana abuse F12.10
[2023-03-30] MEDS ORDERED: Nursing to Pharmacy Communication SCH (23:30)
[2023-03-31] MEDS: POTASSIUM CHLORIDE 40 MEQ in D5W AND NSS 1,000 ML IV SCH ×2 (02:14→23:31)
[2023-03-31 08:15] LABS: Hematocrit (blood only) 32.2 % (37.0-47.0); Hemoglobin 9.3 g/dl (12.0-16.0); Mean Corpuscular Hemoglobin 22.2 pg (25.0-34.0); Mean Corpuscular Hgb Conc 28.9 g/dL (32.0-36.0); Mean Platelet Volume 9.8 fL (9.4-12.4); Platelet Count 303 K/uL (130-400); RDW Coefficient of Variation 21.3 % (11.5-14.5); RDW Standard Deviation 47.7 fL (36.4-46.3); Red Blood Count 4.18 M/uL (4.20-5.40); White Blood Count 5.81 K/ul (4.8-10.8)
[2023-03-31 08:17] LABS: Anion Gap 1 (3-11); Blood Urea Nitrogen < 2 mg/dl (6-23); C Reactive Protein < 0.50 mg/dl (0-0.5); Calcium 8.7 mg/dl (8.6-10.3); Carbon Dioxide 32 mmol/L (21-32); Chloride 109 mmol/L (98-107); Creatinine Clr Calc Pharmacy 166.8 ml/min; Est GFR (African American) > 150.0 ml/min; Est GFR (Non-African American) 142.9 ml/min; Glucose 95 mg/dl (70-99(Fasting)); Phosphorus 1.7 mg/dl (2.5-4.9); Potassium 3.8 mmol/L (3.5-5.1); Sodium 142 mmol/L (136-145)
[2023-03-31] MEDS: CHOLECALCIFEROL 5,000 UNITS 125 MCG TAB PO SCH (08:54)
[2023-03-31] MEDS: UMECLIDINIUM/VILANTEROL 62.5/25MCG 7 PUFFS/INHALER INH SCH (08:55)
[2023-03-31] MEDS: FAMOTIDINE 20 MG in SYRINGE 3 ML IV SCH ×2 (08:55→22:20)
[2023-03-31] MEDS: THIAMINE HCL 100 MG in SYRINGE 9 ML IV SCH (08:55)
[2023-03-31] MEDS: methylPREDNISolone 20 MG in SYRINGE 0 ML IV SCH (08:55)
[2023-03-31] MEDS: MoRPHine SULFATE 2 MG/ML CARP IV PRN ×4 (11:07→23:31)
[2023-03-31] MEDS ORDERED: SODIUM PHOSPHATE 3 MMOL/1 ML INFUSION IV STA (12:18)
[2023-03-31] MEDS ORDERED: SODIUM PHOSPHATE 40 MMOL in SODIUM CHLORIDE 0.9% 1,000 ML IV ONE (12:30)
[2023-03-31] MEDS: TUBE FEEDING WATER FLUSH GT SCH ×2 (15:19→19:44)
[2023-03-31] MEDS: FIBERSOURCE HN 1.2 CAL 1000 ML BAG GT SCH (18:30)
[2023-03-31] MEDS ORDERED: MULTI VIT W/MINERALS LIQUID 15 ML UDP PO SCH (21:00)
--- NOTE | 2023-03-31 22:34 | Hospitalist Progress Note ---
Date of Service March 31, 2023 Assessment & Plan (1) Acute respiratory failure with hypoxia: Plan: Acute hypoxic respiratory failure, aspiration with COPD exacerbation, suspected mucous plugging. Followed by [facility] pulm, most recent note indicated patient's alpha-1 antitrypsin level within normal limits.( Phenotype PI*MM, Normal) Septic on admission w/ reported fever, leukocytosis, tachycardia pulmonary source w acute aspiration pneumonia, also confirmed UTI ecoli poa s/p 1500cc bolus on admission (approx 40kg patient/met 30cc/kg sepsis recs) CT chest w/ evidence of chronic aspiration and progressive opacification of left inferior lobe. Suspected mucous plug, endobronchial lesion not excluded. Continues on IV Zosyn/Doxy IV MRSA nares NEGATIVE Methylprednisolone 40mg IV daily Pulmonary toilet -- nebs as needed, hypertonic saline to help with mucus plugging, incentive spirometer/flutter valve, sputum cx as able to produce. ASpiration precautions to be maintained (2) Dysphagia: Plan: Recurrent aspiration, history of achalasia and dysphagia Patient was seen by [facility] in 2019, motility study consistent with achalasia and s/p myotomy PEG tube removed 2020. Permanent aspiration risk, patient has declined PEG/J- tube's after removal in 2020 on follow-up and does not wish to be replaced under any circumstances Patulous esophagus re-demonstrated on CT, no change from prior Prior speech eval 2021 noting aspiration of ALL bolus, patient accepted risk of permissive aspiration/declined repeat PEG/J-tube placement (patient confirmed this) Tube feeds began on 03/31 Environmental Auditor consulted for malnutrition, supplementation --> Iron panel w/ severe deficiency with iron <10, unsat IBC 311, ferritin 4.4-> Venofer 200mg IV daily while inpatient ordered (BPs low, wanting to prevent further drop) -- B12/folate wnl, pending tsh, adding thiamine iv, vitamin D low cannot take po Hypophosphatemia PEG tube placed on 03/30 Concenr over refeeding syndrome, patient will be getting aggressive phos replacement GI medicine recommended neurology evaluation for etiology of swallowing issue noted elevated protein in face of malnourishment , check electrophoresis and per discussion normal mri brain MRI c spine with critical spinal stenosis as commented on by radiology, I asked Dr. Marks to review the patient's MR C-spine he does not feel she is critical spinal stenosis but there are some minor changes none of which could impact her swallowing. (3) Anemia: Plan: Chronic anemia, hx transfusions, severely iron deficient and chronic disease from poor nutrition supplemented iv iron (4) Severe protein-calorie malnutrition: Plan: BMI 15, weight 39.7kg. Poor nutrition status at baseline 2nd to dysphagia/achalasia at baseline Chronic aspiration, speech consult deferred as likely to have had no interval change --> placed given patient WANTING TO CONTINUE TO EAT FOR DOCUMENTATION PURPOSES PT is with consideration of outpt TPN, pretty Ellsworth feels that Pretty has a follow up clinic for outpt TPN with Dr Leung (5) COPD exacerbation: Plan: COPD Home Anoro continued PFTs 2021: Severe obstructive lung dysfunction with bronchodilator response, mildly decreased DLCO. Management of acute exacerbation as above (6) Aspiration pneumonia: Plan: - Abx/tx as noted, aspiration precautions, speech consulted as above as well as nutrition (7) LBBB (left bundle branch block): Plan: Sinus tachycardia with left bundle branch block - EKG as above, no acute ischemic change. Patient had some pain with coughing, but denied any chest pain at rest. She endorses weakness, but outside of this has not had chest pain or chest pressure with exertion Reactive to volume depletion and pulmonary disease, treated as above. No indication at this time for rate control. Optimize magnesium 2.0/K 4.0 - trop wnl (8) Marijuana abuse: Plan: Marijuana use, former tobacco use Marijuana cessation recommended [id number] smoking history in remission since 2018 Plan DVT PPx: Heparin SQ Admission and Anticipated Discharge Date Admission Date: March 19, 2023 Subjective Patient reports no new symptoms. Review of Systems Review of Systems: All systems reviewed & are unremarkable except as noted in HPI & below Physical Exam Physical Exam: patient evaluated she is about her normal self. She does have dysphonia but this has been longstanding card exam is regular lungs are clear at this time Results & Data Results & Data Vital Signs (Past 12 Hours) Vital Signs Temp Pulse Pulse Resp BP Pulse Ox O2 Del Method 03/31/23 19:20 36.5 C 71 18 113/66 91 Room Air 03/31/23 14:59 36.5 C 57 L 18 121/72 94 Room Air 03/31/23 14:00 64 03/31/23 11:01 36.5 C 76 18 111/72 94 Room Air PG Care Time/CCT Total # of Minutes Spent Total Time Spent with Patient: Total time spent is greater than 50% in coordination of care (as documented) at patient's floor/unit and/or counseling patient: Coding Level of Care Code 11692 SUB INP/OBS CARE 2/35MIN Diagnoses Acute respiratory failure with hypoxia J96.01 Dysphagia R13.10 Anemia D64.9 Severe protein-calorie malnutrition E43 COPD exacerbation J44.1 Aspiration pneumonia J69.0 LBBB (left bundle branch block) I44.7 Marijuana abuse F12.10
[2023-04-01] MEDS: TUBE FEEDING WATER FLUSH GT SCH ×6 (02:35→20:20)
[2023-04-01] MEDS: MoRPHine SULFATE 2 MG/ML CARP IV PRN ×5 (03:38→21:56)
[2023-04-01] MEDS ORDERED: POTASSIUM PHOS 3 MMOL/1 ML INFUSION IV STA (05:41)
[2023-04-01] MEDS ORDERED: POTASSIUM PHOSPHATE 21 MMOL in SODIUM CHLORIDE 0.9% 500 ML IV ONE (06:00)
[2023-04-01] MEDS: CHOLECALCIFEROL 5,000 UNITS 125 MCG TAB PO SCH (09:50)
[2023-04-01] MEDS: FAMOTIDINE 20 MG in SYRINGE 3 ML IV SCH ×2 (09:50→20:15)
[2023-04-01] MEDS: THIAMINE HCL 100 MG in SYRINGE 9 ML IV SCH (09:50)
[2023-04-01] MEDS: methylPREDNISolone 20 MG in SYRINGE 0 ML IV SCH (09:50)
[2023-04-01] MEDS: UMECLIDINIUM/VILANTEROL 62.5/25MCG 7 PUFFS/INHALER INH SCH (09:51)
[2023-04-01 13:44] LABS: Anion Gap 5 (3-11); Calcium 9.4 mg/dl (8.6-10.3); Carbon Dioxide 29 mmol/L (21-32); Chloride 109 mmol/L (98-107); Potassium 4.5 mmol/L (3.5-5.1); Sodium 143 mmol/L (136-145)
[2023-04-01 13:59] LABS: Blood Urea Nitrogen < 2 mg/dl (6-23); Creatinine Clr Calc Pharmacy 146.8 ml/min; Est GFR (African American) > 150.0 ml/min; Est GFR (Non-African American) 136.4 ml/min; Glucose 115 mg/dl (70-99(Fasting))
[2023-04-01] MEDS ORDERED: SODIUM PHOSPHATE 3 MMOL/1 ML INFUSION IV STA (14:32)
[2023-04-01] MEDS ORDERED: SODIUM PHOSPHATE 40 MMOL in DEXTROSE 5% 1,000 ML IV ONE (14:45)
[2023-04-01] MEDS: POTASSIUM CHLORIDE 40 MEQ in D5W AND NSS 1,000 ML IV SCH (17:46)
[2023-04-01] MEDS: MULTI VIT W/MINERALS LIQUID 15 ML UDC PO SCH (20:15)
[2023-04-01] MEDS: FIBERSOURCE HN 1.2 CAL 1000 ML BAG GT SCH (21:57)
--- NOTE | 2023-04-01 22:23 | Hospitalist Progress Note ---
Date of Service April 01, 2023 Assessment & Plan (1) Acute respiratory failure with hypoxia: Plan: Acute hypoxic respiratory failure, aspiration with COPD exacerbation, suspected mucous plugging. Followed by [facility] pulm, most recent note indicated patient's alpha-1 antitrypsin level within normal limits.( Phenotype PI*MM, Normal) Septic on admission w/ reported fever, leukocytosis, tachycardia pulmonary source w acute aspiration pneumonia, also confirmed UTI ecoli poa s/p 1500cc bolus on admission (approx 40kg patient/met 30cc/kg sepsis recs) CT chest w/ evidence of chronic aspiration and progressive opacification of left inferior lobe. Suspected mucous plug, endobronchial lesion not excluded. Completed course of IV Zosyn/Doxy IV MRSA nares NEGATIVE Methylprednisolone 20 mg IV daily Pulmonary toilet -- nebs as needed, hypertonic saline stopped incentive spirometer/flutter valve, sputum cx as able to produce. ASpiration precautions to be maintained (2) Dysphagia: Plan: Recurrent aspiration, history of achalasia and dysphagia Patient was [place] [facility] [place], motility study consistent with achalasia and s/p myotomy PEG tube removed 2020. Permanent aspiration risk, patient has declined PEG/J- tube's after removal in 2020 on follow-up and does not wish to be replaced under any circumstances Patulous esophagus re-demonstrated on CT, no change from prior Prior speech eval 2021 noting aspiration of ALL bolus, patient accepted risk of permissive aspiration/declined repeat PEG/J-tube placement (patient confirmed this) Tube feeds began on 03/31 Comic Book Designer consulted for malnutrition, supplementation --> Iron panel w/ severe deficiency with iron <10, unsat IBC 311, ferritin 4.4-> Venofer 200mg IV daily while inpatient ordered (BPs low, wanting to prevent further drop) -- B12/folate wnl, pending tsh, adding thiamine iv, vitamin D low cannot take po Hypophosphatemia PEG tube placed on 03/30 Concern over refeeding syndrome, patient will be getting aggressive phos replacement Has been giving about 20 mmol if levels are normal, and 40 mmol if low to keep the phos in the normal range. GI medicine recommended neurology evaluation for etiology of swallowing issue noted elevated protein in face of malnourishment , check electrophoresis and per discussion normal mri brain MRI c spine with critical spinal stenosis as commented on by radiology, I asked Dr. Marks to review the patient's MR C-spine he does not feel she is critical spinal stenosis but there are some minor changes none of which could impact her swallowing. (3) Anemia: Plan: Chronic anemia, hx transfusions, severely iron deficient and chronic disease from poor nutrition supplemented iv iron (4) Severe protein-calorie malnutrition: Plan: BMI 15, weight 39.7kg. Poor nutrition status at baseline 2nd to dysphagia/achalasia at baseline Chronic aspiration, speech consult deferred as likely to have had no interval change --> placed given patient WANTING TO CONTINUE TO EAT FOR DOCUMENTATION PURPOSES PEG tube feeds (5) COPD exacerbation: Plan: COPD Home Anoro continued PFTs 2021: Severe obstructive lung dysfunction with bronchodilator response, mildly decreased DLCO. Management of acute exacerbation as above (6) Aspiration pneumonia: Plan: - Abx/tx as noted, aspiration precautions, speech consulted as above as well as nutrition (7) LBBB (left bundle branch block): Plan: Sinus tachycardia with left bundle branch block - EKG as above, no acute ischemic change. Patient had some pain with coughing, but denied any chest pain at rest. She endorses weakness, but outside of this has not had chest pain or chest pressure with exertion Reactive to volume depletion and pulmonary disease, treated as above. No indication at this time for rate control. Optimize magnesium 2.0/K 4.0 - trop wnl (8) Marijuana abuse: Plan: Marijuana use, former tobacco use Marijuana cessation recommended [id number] smoking history in remission since 2019 Plan DVT PPx: Heparin SQ Admission and Anticipated Discharge Date Admission Date: March 19, 2023 Subjective 47 yo female reports tolerating her peg tube feedings. Review of Systems Review of Systems: All systems reviewed & are unremarkable except as noted in HPI & below Physical Exam Physical Exam: patient evaluated she is about her normal self. She does have dysphonia but this has been longstanding card exam is regular lungs are clear at this time Results & Data Results & Data Vital Signs (Past 12 Hours) Vital Signs Temp Pulse Pulse Resp BP BP Pulse Ox 04/01/23 20:00 04/01/23 19:36 36.4 C L 63 18 103/67 95 04/01/23 15:34 36.6 C 81 16 90/56 L 92 04/01/23 15:00 80 04/01/23 11:07 36.4 C L 75 16 106/79 93 O2 Del Method 04/01/23 20:00 Room Air 04/01/23 19:36 Room Air 04/01/23 15:34 Room Air 04/01/23 15:00 04/01/23 11:07 Room Air PG Care Time/CCT Total # of Minutes Spent Total Time Spent with Patient: Total time spent is greater than 50% in coordination of care (as documented) at patient's floor/unit and/or counseling patient: Coding Level of Care Code 36535 SUB INP/OBS CARE 3/50MIN Diagnoses Acute respiratory failure with hypoxia J96.01 Dysphagia R13.10 Anemia D64.9 Severe protein-calorie malnutrition E43 COPD exacerbation J44.1 Aspiration pneumonia J69.0 LBBB (left bundle branch block) I44.7 Marijuana abuse F12.10
[2023-04-02] MEDS: TUBE FEEDING WATER FLUSH GT SCH ×6 (02:18→20:44)
[2023-04-02] MEDS: MoRPHine SULFATE 2 MG/ML CARP IV PRN ×2 (02:19→08:41)
[2023-04-02 08:01] LABS: Hematocrit (blood only) 31.7 % (37.0-47.0); Hemoglobin 9.2 g/dl (12.0-16.0); Mean Corpuscular Hemoglobin 22.5 pg (25.0-34.0); Mean Corpuscular Volume 77.7 fL (80.0-100.0); Mean Platelet Volume 9.7 fL (9.4-12.4); Platelet Count 291 K/uL (130-400); RDW Coefficient of Variation 22.9 % (11.5-14.5); RDW Standard Deviation 48.8 fL (36.4-46.3); Red Blood Count 4.08 M/uL (4.20-5.40); White Blood Count 6.66 K/ul (4.8-10.8)
[2023-04-02 08:24] LABS: Anion Gap 1 (3-11); Blood Urea Nitrogen < 2 mg/dl (6-23); Calcium 8.7 mg/dl (8.6-10.3); Carbon Dioxide 32 mmol/L (21-32); Chloride 109 mmol/L (98-107); Creatinine Clr Calc Pharmacy 165.5 ml/min; Est GFR (African American) > 150.0 ml/min; Est GFR (Non-African American) 141.2 ml/min; Glucose 236 mg/dl (70-99(Fasting)); Phosphorus 2.5 mg/dl (2.5-4.9); Potassium 5.7 mmol/L (3.5-5.1); Sodium 142 mmol/L (136-145)
[2023-04-02] MEDS: methylPREDNISolone 20 MG in SYRINGE 0 ML IV SCH (08:42)
[2023-04-02] MEDS: FAMOTIDINE 20 MG in SYRINGE 3 ML IV SCH ×2 (08:45→20:46)
--- NOTE | 2023-04-02 14:38 | Hospitalist Progress Note ---
Date of Service April 02, 2023 Assessment & Plan (1) Acute respiratory failure with hypoxia: Plan: Supplemental oxygen per nasal cannula to maintain saturation greater than 90%. Wean off as tolerated. Treat underlying aspiration pneumonia and suspected mucous plugging. Pulmonary medicine consultation and recommendations appreciated. (2) Sepsis: Plan: Present on admission. Now resolved. She has completed her treatment with intravenous Zosyn and doxycycline. (3) Hypophosphatemia: Plan: Parenteral replacement. Serial labs (4) Dysphagia: Plan: History of achalasia. PEG tube was placed earlier this admission. She is now on continuous tube feedings (5) Anemia: Plan: Chronic . Iron deficiency documented. She received parenteral iron this admission. Serial labs. (6) Severe protein-calorie malnutrition: Plan: BMI 15, weight 39.7kg. Poor nutrition status at baseline 2nd to dysphagia/achalasia at baseline. Now on continuous tube feedings. Hopefully nutrition and weight will improve. (7) COPD exacerbation: Plan: Present on admission. Now resolved. Continue current management (8) Aspiration pneumonia: Plan: Present on admission. Now resolved. She has completed her course of Zosyn and doxycycline. (9) LBBB (left bundle branch block): Plan: Chronic. Stable. Telemetry. (10) Marijuana abuse: Plan: Marijuana use, former tobacco use. Marijuana cessation recommended. [id number] smoking history in remission since 2019 Plan Hopeful discharge to home soon Admission and Anticipated Discharge Date Admission Date: March 19, 2023 Subjective Alert and oriented. No distress. Caregivers are at the bedside. She is currently on continuous tube feedings per the PEG tube that was placed earlier this week. Potassium has increased to 5.7. All potassium supplements have been discontinued. Review of Systems 2 Review of Systems: Constitutional-no fever or chills ENT-no blurred vision, no double vision, no epistaxis, no sore throat Respiratory-no cough, no wheezing, no shortness of breath Cardiac-no palpitations, no chest pain, no syncope GI-no nausea, vomiting, diarrhea, melena, hematochezia -no urinary retention, no urinary incontinence, no dysuria, no hematuria Musculoskeletal-no joint pain, no muscle tenderness Skin-no bruising, no rashes, no pruritus Neuro-no isolated weakness, no paresthesia, no weakness Psych-no depression, no anxiety Physical Exam 2 Physical Exam: General-alert and oriented x3, no fevers, no chills. Cachectic appearing HEENT-head atraumatic and normocephalic, pupils equal and reactive to light, extraocular muscles intact Neck-no lymphadenopathy or thyromegaly, trachea midline Chest-diminished breath sounds bilaterally. Scattered rhonchi. No wheezing. No expiratory rales. Cardiac-regular rate and rhythm, normal S1 and S2 Abdomen-normal bowel sounds, no hepatosplenomegaly. Some tenderness at PEG tube insertion site. The site itself is unremarkable Extremities-no cyanosis, clubbing, or edema Neuro-cranial nerves II through XII intact, motor and sensory function within normal limits, strength symmetrical, no focal deficits Psych-normal affect, normal mood Results & Data Results & Data Vital Signs (Past 12 Hours) Vital Signs Temp Pulse Pulse Resp BP Pulse Ox O2 Del Method 04/02/23 12:00 36.8 C 78 18 109/78 96 Room Air 04/02/23 09:00 04/02/23 07:33 36.3 C L 69 18 119/75 93 Room Air 04/02/23 07:00 85 04/02/23 03:21 36.5 C 56 L 16 95/60 L 96 Room Air O2 Del Method 04/02/23 12:00 04/02/23 09:00 Room Air 04/02/23 07:33 04/02/23 07:00 04/02/23 03:21 Laboratory Results 04/02/23 07:12 04/02/23 07:12 PG Care Time/CCT Total # of Minutes Spent Total Time Spent with Patient: Total time spent is greater than 50% in coordination of care (as documented) at patient's floor/unit and/or counseling patient: Coding Level of Care Code 35423 SUB INP/OBS CARE 3/50MIN Diagnoses Acute respiratory failure with hypoxia J96.01 Sepsis A41.9 Hypophosphatemia E83.39 Dysphagia R13.10 Anemia D64.9 Severe protein-calorie malnutrition E43 COPD exacerbation J44.1 Aspiration pneumonia J69.0 LBBB (left bundle branch block) I44.7 Marijuana abuse F12.10
[2023-04-02] MEDS: THIAMINE HCL 100 MG in SYRINGE 9 ML IV SCH (15:24)
[2023-04-02] MEDS: UMECLIDINIUM/VILANTEROL 62.5/25MCG 7 PUFFS/INHALER INH SCH (15:24)
[2023-04-02] MEDS: CHOLECALCIFEROL 5,000 UNITS 125 MCG TAB PO SCH (15:24)
[2023-04-02] MEDS: traMADol HCL 50 MG TABLET PO PRN ×2 (15:45→22:09)
[2023-04-02] MEDS: MULTI VIT W/MINERALS LIQUID 15 ML UDC PO SCH (20:46)
[2023-04-02] MEDS: ACETAMINOPHEN 325 MG TAB PEG PRN (20:47)
[2023-04-02] MEDS: FIBERSOURCE HN 1.2 CAL 1000 ML BAG GT SCH (21:00)
[2023-04-03] MEDS: TUBE FEEDING WATER FLUSH GT SCH ×6 (04:00→21:01)
[2023-04-03] MEDS: traMADol HCL 50 MG TABLET PO PRN ×4 (04:06→22:21)
[2023-04-03 07:34] LABS: Hematocrit (blood only) 30.6 % (37.0-47.0); Hemoglobin 8.8 g/dl (12.0-16.0); Mean Corpuscular Hemoglobin 22.6 pg (25.0-34.0); Mean Corpuscular Hgb Conc 28.8 g/dL (32.0-36.0); Mean Corpuscular Volume 78.5 fL (80.0-100.0); Platelet Count 261 K/uL (130-400); RDW Coefficient of Variation 23.4 % (11.5-14.5); RDW Standard Deviation 67.1 fL (36.4-46.3); White Blood Count 5.12 K/ul (4.8-10.8)
[2023-04-03 07:43] LABS: Anion Gap 2 (3-11); BUN Creatinine Ratio 25.9 (10-20); Blood Urea Nitrogen 7 mg/dl (6-23); Calcium 9.3 mg/dl (8.6-10.3); Carbon Dioxide 34 mmol/L (21-32); Chloride 102 mmol/L (98-107); Creatinine Clr Calc Pharmacy 163.9 ml/min; Est GFR (African American) > 150.0 ml/min; Est GFR (Non-African American) 141.2 ml/min; Glucose 97 mg/dl (70-99(Fasting)); Phosphorus 2.4 mg/dl (2.5-4.9); Potassium 4.2 mmol/L (3.5-5.1); Sodium 138 mmol/L (136-145)
[2023-04-03 07:52] LABS: Anisocytosis Present; Basophils # (auto) 0.02 K/uL (0.00-0.20); Basophils % (auto) 0.4 %; Eosinophils # (auto) 0.11 K/uL (0.00-0.50); Eosinophils % (auto) 2.1 %; Hypochromasia Present; Immature Granulocytes # (auto) 0.01 K/uL (0.01-0.20); Immature Granulocytes % (auto) 0.2 %; Lymphocytes # (auto) 2.11 K/uL (1.20-3.40); Lymphocytes % (auto) 41.2 %; Monocytes # (auto) 0.42 K/uL (0.11-0.59); Monocytes % (auto) 8.2 %; Neutrophils # (auto) 2.45 K/uL (1.40-6.50); Neutrophils % (auto) 47.9 %
[2023-04-03] MEDS: FAMOTIDINE 20 MG in SYRINGE 3 ML IV SCH (09:27)
[2023-04-03] MEDS: ACETAMINOPHEN 325 MG TAB PEG PRN (09:27)
[2023-04-03] MEDS: THIAMINE HCL 100 MG in SYRINGE 9 ML IV SCH (09:28)
[2023-04-03] MEDS: methylPREDNISolone 20 MG in SYRINGE 0 ML IV SCH (09:28)
[2023-04-03] MEDS: UMECLIDINIUM/VILANTEROL 62.5/25MCG 7 PUFFS/INHALER INH SCH (09:30)
[2023-04-03] MEDS: CHOLECALCIFEROL 5,000 UNITS 125 MCG TAB PO SCH (09:30)
[2023-04-03] MEDS: POT PHOSPHATE MONOBASIC W/ SOD TAB PEG SCH ×2 (12:15→21:01)
--- NOTE | 2023-04-03 15:36 | Hospitalist Progress Note ---
Date of Service April 03, 2023 Assessment & Plan (1) Acute respiratory failure with hypoxia: Plan: Supplemental oxygen per nasal cannula to maintain saturation greater than 90%. Wean off as tolerated. Treat underlying aspiration pneumonia and suspected mucous plugging. Pulmonary medicine consultation and recommendations appreciated. (2) Sepsis: Plan: Present on admission. Now resolved. She has completed her treatment with intravenous Zosyn and doxycycline. (3) Hypophosphatemia: Plan: Parenteral replacement was given earlier this admission. Neutra-Phos now ordered per PEG tube. Serial labs (4) Dysphagia: Plan: History of achalasia. PEG tube was placed earlier this admission. She is now on continuous tube feedings and tolerating this well. Apparently, her caregivers are familiar with continuous PEG tube feeding which she was on before and are not interested in pursuing bolus feeding at this time. (5) Anemia: Plan: Chronic . Iron deficiency documented. She received parenteral iron this admission. Serial labs. (6) Severe protein-calorie malnutrition: Plan: BMI 15, weight 39.7kg. Poor nutrition status at baseline 2nd to dysphagia/achalasia at baseline. Now on continuous tube feedings. Hopefully nutrition and weight will improve. (7) COPD exacerbation: Plan: Present on admission. Now resolved. Continue current management (8) Aspiration pneumonia: Plan: Present on admission. Now resolved. She has completed her course of Zosyn and doxycycline. (9) LBBB (left bundle branch block): Plan: Chronic. Stable. Telemetry. (10) Marijuana abuse: Plan: Marijuana use, former tobacco use. Marijuana cessation recommended. [id number] smoking history in remission since 2019 Plan Hopeful discharge to home soon Admission and Anticipated Discharge Date Admission Date: March 19, 2023 Subjective Alert and oriented. No new problems. Neutra-Phos has been ordered via PEG tube. Parenteral steroids have been discontinued. She is stable for transfer off the PCU. Review of Systems 2 Review of Systems: Constitutional-no fever or chills ENT-no blurred vision, no double vision, no epistaxis, no sore throat Respiratory-no cough, no wheezing, no shortness of breath Cardiac-no palpitations, no chest pain, no syncope GI-no nausea, vomiting, diarrhea, melena, hematochezia -no urinary retention, no urinary incontinence, no dysuria, no hematuria Musculoskeletal-no joint pain, no muscle tenderness Skin-no bruising, no rashes, no pruritus Neuro-no isolated weakness, no paresthesia, no weakness Psych-no depression, no anxiety Physical Exam 2 Physical Exam: General-alert and oriented x3, no fevers, no chills. Cachectic appearing HEENT-head atraumatic and normocephalic, pupils equal and reactive to light, extraocular muscles intact Neck-no lymphadenopathy or thyromegaly, trachea midline Chest-diminished breath sounds bilaterally. Scattered rhonchi. No wheezing. No expiratory rales. Cardiac-regular rate and rhythm, normal S1 and S2 Abdomen-normal bowel sounds, no hepatosplenomegaly. Some tenderness at PEG tube insertion site. The site itself is unremarkable Extremities-no cyanosis, clubbing, or edema Neuro-cranial nerves II through XII intact, motor and sensory function within normal limits, strength symmetrical, no focal deficits Psych-normal affect, normal mood Results & Data Results & Data Vital Signs (Past 12 Hours) Vital Signs Temp Pulse Resp BP Pulse Ox O2 Del Method 04/03/23 11:50 36.4 C L 79 18 101/67 93 Room Air 04/03/23 08:00 36.5 C 62 18 90/58 L 95 Room Air Laboratory Results 04/03/23 06:18 04/03/23 06:18 PG Care Time/CCT Total # of Minutes Spent Total Time Spent with Patient: Total time spent is greater than 50% in coordination of care (as documented) at patient's floor/unit and/or counseling patient: Coding Level of Care Code 66799 SUB INP/OBS CARE 3/50MIN Diagnoses Acute respiratory failure with hypoxia J96.01 Sepsis A41.9 Hypophosphatemia E83.39 Dysphagia R13.10 Anemia D64.9 Severe protein-calorie malnutrition E43 COPD exacerbation J44.1 Aspiration pneumonia J69.0 LBBB (left bundle branch block) I44.7 Marijuana abuse F12.10
[2023-04-03] MEDS: MULTI VIT W/MINERALS LIQUID 15 ML UDC PO SCH (21:01)
[2023-04-03] MEDS: HEPARIN SOD 5,000 UNIT/0.5 ML VIAL SQ SCH (22:21)
[2023-04-04] MEDS: TUBE FEEDING WATER FLUSH GT SCH ×7 (00:31→23:01)
[2023-04-04] MEDS: traMADol HCL 50 MG TABLET PO PRN ×4 (03:50→21:52)
[2023-04-04 07:05] LABS: Basophils # (auto) 0.02 K/uL (0.00-0.20); Basophils % (auto) 0.4 %; Eosinophils # (auto) 0.05 K/uL (0.00-0.50); Hematocrit (blood only) 30.7 % (37.0-47.0); Immature Granulocytes # (auto) 0.01 K/uL (0.01-0.20); Immature Granulocytes % (auto) 0.2 %; Lymphocytes # (auto) 1.47 K/uL (1.20-3.40); Lymphocytes % (auto) 28.4 %; Mean Corpuscular Hemoglobin 23.3 pg (25.0-34.0); Mean Corpuscular Hgb Conc 29.3 g/dL (32.0-36.0); Mean Corpuscular Volume 79.3 fL (80.0-100.0); Monocytes # (auto) 0.39 K/uL (0.11-0.59); Monocytes % (auto) 7.5 %; Neutrophils # (auto) 3.24 K/uL (1.40-6.50); Neutrophils % (auto) 62.5 %; Platelet Count 242 K/uL (130-400); RDW Standard Deviation 68.6 fL (36.4-46.3); Red Blood Count 3.87 M/uL (4.20-5.40); White Blood Count 5.18 K/ul (4.8-10.8)
[2023-04-04 07:28] LABS: Anion Gap 2 (3-11); BUN Creatinine Ratio 27.6 (10-20); Blood Urea Nitrogen 8 mg/dl (6-23); Calcium 9.4 mg/dl (8.6-10.3); Carbon Dioxide 35 mmol/L (21-32); Chloride 99 mmol/L (98-107); Creatinine Clr Calc Pharmacy 152.6 ml/min; Est GFR (African American) > 150.0 ml/min; Est GFR (Non-African American) 137.9 ml/min; Glucose 98 mg/dl (70-99(Fasting)); Phosphorus 2.6 mg/dl (2.5-4.9); Potassium 4.1 mmol/L (3.5-5.1); Sodium 136 mmol/L (136-145)
[2023-04-04 08:03] LABS: Anisocytosis Present; Polychromasia 1+
[2023-04-04] MEDS: POT PHOSPHATE MONOBASIC W/ SOD TAB PEG SCH ×3 (08:34→20:33)
[2023-04-04] MEDS: CHOLECALCIFEROL 5,000 UNITS 125 MCG TAB PO SCH (08:34)
[2023-04-04] MEDS: HEPARIN SOD 5,000 UNIT/0.5 ML VIAL SQ SCH ×2 (08:34→20:34)
--- NOTE | 2023-04-04 08:55 | Hospitalist Progress Note ---
Date of Service April 04, 2023 Assessment & Plan (1) Acute respiratory failure with hypoxia: Plan: Supplemental oxygen per nasal cannula to maintain saturation greater than 90%. Wean off as tolerated. Treat underlying aspiration pneumonia and suspected mucous plugging. Pulmonary medicine consultation and recommendations appreciated. (2) Sepsis: Plan: Present on admission. Now resolved. She has completed her treatment with intravenous Zosyn and doxycycline. (3) Hypophosphatemia: Plan: Parenteral replacement was given earlier this admission. Neutra-Phos now ordered per PEG tube. Serial labs (4) Dysphagia: Plan: History of achalasia. PEG tube was placed earlier this admission. She is now on continuous tube feedings of fibersource at 45 ml/hr consider nocturnal feeding tolerating this well. Apparently, her caregivers are familiar with continuous PEG tube feeding which she was on before and are not interested in pursuing bolus feeding at this time. asks for pleasure eating, understands risks, wants puree diet (5) Anemia: Plan: Chronic . Iron deficiency documented. She received parenteral iron this admission. Serial labs. (6) Severe protein-calorie malnutrition: Plan: BMI 15, weight 39.7kg. Poor nutrition status at baseline 2nd to dysphagia/achalasia at baseline. Now on continuous tube feedings. (7) COPD exacerbation: Plan: Present on admission. Now resolved. Continue current management (8) Aspiration pneumonia: Plan: Present on admission. Now resolved. She has completed her course of Zosyn and doxycycline. (9) LBBB (left bundle branch block): Plan: Chronic. Stable. Telemetry. (10) Marijuana abuse: Plan: Marijuana use, former tobacco use. Marijuana cessation recommended. [id number] smoking history in remission since 2019 Plan Hopeful discharge to home target 04/06/23 Admission and Anticipated Discharge Date Admission Date: March 19, 2023 Subjective Alert and oriented. tolerating tube feeds without issues Neutra-Phos has been ordered via PEG tube. phosphorus was repleted. Discussion with caregiver targeting potential transfer home on April 06, 2023 Physical Exam Physical Exam: patient evaluated she is about her normal self. She does have dysphonia but this has been longstanding card exam is regular lungs are clear at this time abdomen now with PEG tube site is clean dry and intact and not significantly tender or reddened Results & Data Results & Data Vital Signs (Past 12 Hours) Vital Signs Temp Pulse Resp BP BP BP Pulse Ox 04/04/23 08:11 97.9 F 63 16 87/52 L 86/44 L 104/56 L 96 O2 Del Method 04/04/23 08:11 Room Air Laboratory Results reviewed CBC reviewed chemistry PG Care Time/CCT Total # of Minutes Spent Total Time Spent with Patient: Total time spent is greater than 50% in coordination of care (as documented) at patient's floor/unit and/or counseling patient: Coding Level of Care Code 05786 SUB INP/OBS CARE 2/35MIN Diagnoses Acute respiratory failure with hypoxia J96.01 Sepsis A41.9 Hypophosphatemia E83.39 Dysphagia R13.10 Anemia D64.9 Severe protein-calorie malnutrition E43 COPD exacerbation J44.1 Aspiration pneumonia J69.0 LBBB (left bundle branch block) I44.7 Marijuana abuse F12.10
[2023-04-04] MEDS: MULTI VIT W/MINERALS LIQUID 15 ML UDC PO SCH (20:34)
[2023-04-05] MEDS: traMADol HCL 50 MG TABLET PO PRN ×3 (04:10→15:48)
[2023-04-05] MEDS: TUBE FEEDING WATER FLUSH GT SCH ×3 (04:18→13:43)
[2023-04-05 08:28] LABS: Anion Gap 2 (3-11); BUN Creatinine Ratio 26.7 (10-20); Blood Urea Nitrogen 8 mg/dl (6-23); Calcium 9.3 mg/dl (8.6-10.3); Carbon Dioxide 36 mmol/L (21-32); Chloride 99 mmol/L (98-107); Creatinine Clr Calc Pharmacy 147.5 ml/min; Est GFR (African American) > 150.0 ml/min; Est GFR (Non-African American) 136.4 ml/min; Glucose 102 mg/dl (70-99(Fasting)); Phosphorus 3.5 mg/dl (2.5-4.9); Potassium 4.3 mmol/L (3.5-5.1); Sodium 137 mmol/L (136-145)
[2023-04-05 08:51] LABS: Anisocytosis Present; Basophils # (auto) 0.03 K/uL (0.00-0.20); Basophils % (auto) 0.6 %; Eosinophils # (auto) 0.11 K/uL (0.00-0.50); Eosinophils % (auto) 2.2 %; Hematocrit (blood only) 32.5 % (37.0-47.0); Hemoglobin 9.3 g/dl (12.0-16.0); Hypochromasia Present; Immature Granulocytes # (auto) 0.02 K/uL (0.01-0.20); Immature Granulocytes % (auto) 0.4 %; Lymphocytes # (auto) 1.31 K/uL (1.20-3.40); Lymphocytes % (auto) 26.1 %; Mean Corpuscular Hemoglobin 22.9 pg (25.0-34.0); Mean Corpuscular Hgb Conc 28.6 g/dL (32.0-36.0); Mean Platelet Volume 10.2 fL (9.4-12.4); Monocytes # (auto) 0.42 K/uL (0.11-0.59); Monocytes % (auto) 8.4 %; Neutrophils # (auto) 3.12 K/uL (1.40-6.50); Neutrophils % (auto) 62.3 %; Platelet Count 227 K/uL (130-400); Polychromasia 1+; RDW Coefficient of Variation 24.9 % (11.5-14.5); RDW Standard Deviation 70.6 fL (36.4-46.3); Red Blood Count 4.06 M/uL (4.20-5.40); White Blood Count 5.01 K/ul (4.8-10.8)
[2023-04-05] MEDS: POT PHOSPHATE MONOBASIC W/ SOD TAB PEG SCH ×3 (10:14→21:07)
[2023-04-05] MEDS: CHOLECALCIFEROL 5,000 UNITS 125 MCG TAB PO SCH (10:14)
[2023-04-05] MEDS: HEPARIN SOD 5,000 UNIT/0.5 ML VIAL SQ SCH ×2 (10:14→21:07)
[2023-04-05] MEDS ORDERED: TUBE FEEDING WATER FLUSH GT SCH (15:00)
--- NOTE | 2023-04-05 16:50 | Hospitalist Progress Note ---
Date of Service April 05, 2023 Assessment & Plan (1) Acute respiratory failure with hypoxia: Plan: resolved initially secondary to aspiration pneumonia. also acute on chronic COPD exacerbation worsened by her pneumonia which is now resolved also Treated underlying aspiration pneumonia and suspected mucous plugging. Completed antibiotics. Pulmonary medicine consultation and recommendations appreciated. Sepsis present on admission now resolved. Treated previously with Zosyn and doxycycline. (2) Hypophosphatemia: Plan: Parenteral replacement was given earlier this admission. Neutra-Phos now ordered per PEG tube. Serial labs (3) Dysphagia: Plan: History of achalasia. PEG tube was placed earlier this admission. She is now on continuous tube feedings of fibersource at 45 ml/hr consider nocturnal feeding tolerating this well. Apparently, her caregivers are familiar with continuous PEG tube feeding Patient was on the nocturnal feeding 12 hours on 12 hours off will have dietary convert her continuous Fibersource feeding to a 12-hour feeding and if she tolerates it we will consider discharge on 1211. asks for pleasure eating, understands risks, wants puree diet (4) Anemia: Plan: Chronic . Iron deficiency documented. She received parenteral iron this admission. Serial labs. (5) Severe protein-calorie malnutrition: Plan: BMI 15, weight 39.7kg. Poor nutrition status at baseline 2nd to dysphagia/achalasia at baseline. Now on continuous tube feedings. (6) LBBB (left bundle branch block): Plan: Chronic. Stable. Telemetry. (7) Marijuana abuse: Plan: Marijuana use, former tobacco use. Marijuana cessation recommended. [id number] smoking history in remission since 2019 Plan Hopeful discharge to home target 04/06/23 Admission and Anticipated Discharge Date Admission Date: March 19, 2023 Subjective Alert and oriented. tolerating tube feeds without issues Neutra-Phos has been ordered via PEG tube. phosphorus was repleted. pt previosly on nocturnal feeding, will convert to feeding 04/05 and look for possible dc if tolerated, once home equipment is secured Discussion with caregiver targeting potential transfer home on April 06, 2023 Physical Exam Physical Exam: patient evaluated she is about her normal self. She does have dysphonia but this has been longstanding card exam is regular lungs are clear at this time abdomen now with PEG tube site is clean dry and intact and not significantly tender or reddened Results & Data Results & Data Vital Signs (Past 12 Hours) Vital Signs Temp Pulse Resp BP Pulse Ox O2 Del Method 04/05/23 15:06 97.7 F 78 18 104/64 96 Room Air 04/05/23 08:30 Room Air 04/05/23 07:24 98.1 F 68 16 100/60 94 Room Air Laboratory Results reviewed CBC reviewed chemistry PG Care Time/CCT Total # of Minutes Spent Total Time Spent with Patient: Total time spent is greater than 50% in coordination of care (as documented) at patient's floor/unit and/or counseling patient: Coding Level of Care Code 80200 SUB INP/OBS CARE 2/35MIN Diagnoses Acute respiratory failure with hypoxia J96.01 Hypophosphatemia E83.39 Dysphagia R13.10 Anemia D64.9 Severe protein-calorie malnutrition E43 LBBB (left bundle branch block) I44.7 Marijuana abuse F12.10
[2023-04-05] MEDS: FIBERSOURCE HN 1.2 CAL 1000 ML BAG GT SCH (18:59)
[2023-04-05] MEDS ORDERED: ACETAMINOPHEN 500 MG TAB PO PRN (20:32)
[2023-04-05] MEDS: MULTI VIT W/MINERALS LIQUID 15 ML UDC PO SCH (21:08)
[2023-04-06] MEDS: CHOLECALCIFEROL 5,000 UNITS 125 MCG TAB PO SCH (08:21)
[2023-04-06] MEDS: HEPARIN SOD 5,000 UNIT/0.5 ML VIAL SQ SCH ×2 (08:21→19:53)
[2023-04-06] MEDS: POT PHOSPHATE MONOBASIC W/ SOD TAB PEG SCH ×3 (08:21→19:53)
[2023-04-06] MEDS: traMADol HCL 50 MG TABLET PO PRN ×2 (13:06→19:52)
--- NOTE | 2023-04-06 15:53 | Hospitalist Progress Note ---
Date of Service April 06, 2023 Assessment & Plan (1) Acute respiratory failure with hypoxia: Plan: resolved initially secondary to aspiration pneumonia. also acute on chronic COPD exacerbation worsened by her pneumonia which is now resolved also Treated underlying aspiration pneumonia and suspected mucous plugging. Completed antibiotics. Pulmonary medicine consultation and recommendations appreciated. Sepsis present on admission now resolved. Treated previously with Zosyn and doxycycline. (2) Hypophosphatemia: Plan: Parenteral replacement was given earlier this admission. Neutra-Phos now ordered per PEG tube. Serial labs (3) Dysphagia: Plan: History of achalasia. PEG tube was placed earlier this admission. She is now on continuous tube feedings of fibersource at 45 ml/hr consider nocturnal feeding tolerating this well. Apparently, her caregivers are familiar with continuous PEG tube feeding Patient was on the nocturnal feeding 12 hours on 12 hours off will have dietary convert her continuous Fibersource feeding to a 12-hour feeding and if she tolerates it we will consider discharge on 1211. asks for pleasure eating, understands risks, wants puree diet (4) Anemia: Plan: Chronic . Iron deficiency documented. She received parenteral iron this admission. Serial labs. (5) Severe protein-calorie malnutrition: Plan: BMI 15, weight 39.7kg. Poor nutrition status at baseline 2nd to dysphagia/achalasia at baseline. Now on continuous tube feedings. (6) LBBB (left bundle branch block): Plan: Chronic. Stable. Telemetry. (7) Marijuana abuse: Plan: Marijuana use, former tobacco use. Marijuana cessation recommended. [id number] smoking history in remission since 2019 Plan Hopeful discharge to home target 04/06/23 Admission and Anticipated Discharge Date Admission Date: March 19, 2023 Subjective Alert and oriented. tolerating 12 hour overnight tube feeds without issues phosphorus is repleted. pt previously on nocturnal feeding family is familar with this Discussion with caregiver targeting potential transfer home on April 07, 2023 Physical Exam Physical Exam: patient evaluated she is about her normal self. She does have dysphonia but this has been longstanding card exam is regular lungs are clear at this time abdomen now with PEG tube site is clean dry and intact and not significantly tender or reddened Results & Data Results & Data Vital Signs (Past 12 Hours) Vital Signs Temp Pulse Resp BP Pulse Ox O2 Del Method 04/06/23 15:18 97.5 F L 72 16 102/68 94 Room Air 04/06/23 07:38 98.2 F 72 16 101/66 93 Room Air 04/06/23 07:30 Room Air PG Care Time/CCT Total # of Minutes Spent Total Time Spent with Patient: Total time spent is greater than 50% in coordination of care (as documented) at patient's floor/unit and/or counseling patient: Coding Level of Care Code 53794 SUB INP/OBS CARE 05/21MIN Diagnoses Acute respiratory failure with hypoxia J96.01 Hypophosphatemia E83.39 Dysphagia R13.10 Anemia D64.9 Severe protein-calorie malnutrition E43 LBBB (left bundle branch block) I44.7 Marijuana abuse F12.10
[2023-04-06] MEDS: FIBERSOURCE HN 1.2 CAL 1000 ML BAG GT SCH (17:59)
[2023-04-06] MEDS: MULTI VIT W/MINERALS LIQUID 15 ML UDC PO SCH (19:54)
[2023-04-07] MEDS: traMADol HCL 50 MG TABLET PO PRN (03:28)
[2023-04-07 07:24] LABS: Alanine Aminotransferase 15 U/L (7-52); Albumin Globulin Ratio 1.2 (0.9-2); Albumin Level 3.3 gm/dl (3.4-5.0); Alkaline Phosphatase 151 U/L (34-104); Anion Gap 2 (3-11); Aspartate Aminotransferase 20 U/L (13-39); BUN Creatinine Ratio 34.4 (10-20); Bilirubin,Total 0.3 mg/dl (0.2-1.0); Blood Urea Nitrogen 11 mg/dl (6-23); Calcium 9.5 mg/dl (8.6-10.3); Carbon Dioxide 36 mmol/L (21-32); Chloride 99 mmol/L (98-107); Creatinine Clr Calc Pharmacy 131.4 ml/min; Est GFR (African American) > 150.0 ml/min; Est GFR (Non-African American) 133.5 ml/min; Globulin 2.8 gm/dl (2.5-4.0); Glucose 95 mg/dl (70-99(Fasting)); Magnesium 2.1 mg/dl (1.7-2.4); Potassium 4.4 mmol/L (3.5-5.1); Sodium 137 mmol/L (136-145); Total Protein 6.1 gm/dl (6.0-8.3)
[2023-04-07] MEDS: POT PHOSPHATE MONOBASIC W/ SOD TAB PEG SCH (09:57)
[2023-04-07] MEDS: CHOLECALCIFEROL 5,000 UNITS 125 MCG TAB PO SCH (09:58)
[2023-04-07] MEDS: HEPARIN SOD 5,000 UNIT/0.5 ML VIAL SQ SCH (10:02)
--- NOTE | 2023-04-07 13:50 | Discharge Summary ---
Date of Service April 07, 2023 Admission HPI Per Admitting Provider Loulou is a 47-year-old female with a past medical history of COPD, dysphagia and recurrent aspiration requiring temporary J-tube in the past which was subsequently removed, iron deficiency anemia, uterine fibroid with past bleeding subsequently improved who presents with tachycardia and shortness of breath. Patient presents with fatigue, cough, and shortness of breath for approximately 1 week. She was hypoxic requiring supplemental oxygen in the ER. Due to hypoxia, elevated lactate, and tachycardia she was subsequently recommended for admission. Per Pt: Cough for 'a very long time' but suddenly worse ~7 days ago. Coughing productive for clear sputum in the lat few days. +increased shortness of breath. Past home O2 requirement this past year due to aspirin + covid with chronic respiratory f ailure, recovered and was weaned off oxygen in November 2022. Has followed with GI in the past, but 'not in a long time.' Had discused surgery to help 'the front of the throat close' Had a 'muscle cut' for achelasia, no other GI interventions. Endorses a fever of ~100*F for the last day. Endorses a history of hot flashes, but no new hot flashes or night sweats REports that is was painful when coughing and taking a deep breath this morning when coughing hard, but otherwise no chest pain. No chest pressure. Has been using her home inhalers as directed at home. Takes Anoro once per day, Also used albuterol rescue inhaler one time but did not feel she got any improvement from this Endorses increased wheezing the last week One episode of emesis which was just soup and broth. Denies diarrhea. NO nausea at time of admission. Feels full easily with small amounts of food, does not eat much due to easy satiety. Generally eats soups and does not eat large/solid food to it getting stuck easily/. Endorses globus feeling intermittently, denies aspiration event to her knowledge. Does not take steroids normally. Last steroid course was while in the hospital at last admission, did not take any steroids as outpatient. She has had urinary incontinence but denies dysuria and hematuria. UA is contaminated versus infected appearing Medical History: Reviewed Medications: Reviewed Surgical History: Reviewed Family history: Reviewed Allergies: Reviewed Social History: Former tobacco use, none recently. No etoh use. Uses smoked marijuana intermittently for anxiety/depression. Code Status: Full Code Principal Diagnosis aspiration pneumonia significant aspiration dysphagia and disordered swallowing, peg placement nocturnal feeding fibersource 90/ml an hour Discharge Exam Patient has some speech related issues which are chronic chronic and baseline for her. She is in her normal typical self feels comfortable going home her lungs are clear without signs of concurrent aspiration pneumonitis. Discharge Data Allergies Allergy/AdvReac Type Severity Reaction Status Date / Time No Known Allergies Allergy Verified 03/30/23 10:21 Consultations 03/19/23 11:22 ED Decision to Admit Stat 03/20/23 10:56 Consult Palliative Care Routine 03/22/23 09:03 Consult Gastroenterology Routine 03/23/23 12:22 Consult Neurology Routine 03/30/23 12:37 Consult Nutrition Routine Procedures Performed Operation Date: 03/30/23 17:00 Actual Procedures p PEG Tube Placement - Nicolas Alejandro, DO Ordered Studies 03/19/23 10:50 CT angio chest PE protocol Stat 03/24/23 00:15 MR brain wo con Routine MR cervical spine wo con Routine Hospital Course (1) Acute respiratory failure with hypoxia: resolved initially secondary to aspiration pneumonia. also acute on chronic COPD exacerbation worsened by her pneumonia which is resolved Treated underlying aspiration pneumonia and suspected mucous plugging. Completed antibiotics. Pulmonary medicine consultation and recommendations appreciated. Sepsis present on admission now resolved. Treated previously with Zosyn and doxycycline. (2) Hypophosphatemia: Parenteral replacement was given earlier this admission. Replete now initiated on Fibersource feeding patient will also be administered daily multivitamin via her PEG tube. (3) Dysphagia: History of achalasia. PEG tube was placed earlier this admission. She is now on continuous tube feedings of fibersource at 45 ml/hr consider nocturnal feeding tolerating this well. Apparently, her caregivers are familiar with continuous PEG tube feeding Patient was on the nocturnal feeding 12 hours on 12 hours off will have dietary convert her continuous Fibersource feeding to a 12-hour feeding asks for pleasure eating, understands risks, wants puree diet (4) Anemia: Chronic . Iron deficiency documented. She received parenteral iron this admission. (5) Severe protein-calorie malnutrition: BMI 15, weight 39.7kg. Poor nutrition status at baseline 2nd to dysphagia/achalasia at baseline. Now on continuous tube feedings. (6) LBBB (left bundle branch block): Chronic. Stable. Telemetry. (7) Marijuana abuse: Marijuana use, former tobacco use. Marijuana cessation recommended. [id number] smoking history in remission since 2019 Total Time Total Time Spent Total Time Spent (In Minutes): It required less than 30 minutes to prepare this patient for discharge. Discharge Plan Discharge Items Patient Disposition: Home - Home Health Services Reason For Visit: HYPOXIC RESPIRATORY FAILURE, CHRONIC ASPIRATION, M Discharge Diagnosis: aspiration pneumonia aspiration risk tube feeding initiated after peg insertion Activity: Resume your previous activity Non-emergency contact: Primary Care Provider Call non-emergency contact if: your symptoms worsen Follow-up/Referrals: Deonte Cortés DO [Primary Care Provider] - 04/10/23 1:00 pm Diet: Other - See Diet Comment Diet Texture: Pureed (blended smooth) Diet Comment: Fibersource, 90ml/hr 7p->7am, water flush 50 ml before and after Addtl Attending Provider Instructions: crush an adult multiple vitamin and use via peg tube daily ( may use two childerns chewables as substitute) be very careful with eating as you are at risk of getting food and liquid into lung and having a pneumonia please see your family doctor in a week Addtl Meter/Relay Technician Provider Instructions: please give additional liquids via peg tube three times a day, at least 4-6 ounces each time or 120 ml each time Pending Studies at Discharge: No Stand-Alone Forms: My [employer], Smoking Cessation Medications and DC Order Prescriptions: New Fibersource HN 0.05 gram- 1.2 kcal/mL Liquid 1 ea G-tube DAILY@1800 Qty: 6000 0RF Rx Instructions: fibersource 90ml/hr for 12 hours a day water 50 ml before and after, 120 tid during day Continued albuterol sulfate 90 mcg/actuation HFA aerosol inhaler 2 puff Inhalation QID PRN (Reason: Shortness Of Breath) Qty: 18 3RF Anoro Ellipta 62.5-25 mcg/actuation blister with device 1 inh inhalation DAILY Qty: 60 8RF Discharge Orders: Discharge Order (Routine); Ordered 04/07/23 Ordered By: Harjit Fay/Other Patient Handouts: Understanding PEG Tube Feeding Admission Data Admit Date/Time: 03/19/23 13:11 Attending Provider: Harjit Maurice Admit Provider: Gualberto Huntley Primary Care Provider: Deonte Cortés Other Providers: [facility]; Gualberto Huntley; Loulou Moses; Danica Peña Jr; Jerry Perez; Av Pringle Other Interventions: Discharge Summary Assessment (RN) Last Done: 04/07/23 11:44 Coding Level of Care Code 88962 IN/OBS DISCH 30 MIN/LESS Diagnoses Acute respiratory failure with hypoxia J96.01 Hypophosphatemia E83.39 Dysphagia R13.10 Anemia D64.9 Severe protein-calorie malnutrition E43 LBBB (left bundle branch block) I44.7 Marijuana abuse F12.10
== END 2023-04-07 13:11 | disposition home health service (06) | DRG 871 ==
LOC: ED 08:55 → 2S 13:11 → SUATTDRO 13:11 → 2S 13:57 → 3W 04-03 19:37

== ENCOUNTER 2023-04-09 19:23 | Inpatient (IN) ==
--- NOTE | 2023-04-09 20:50 | XRay Report ---
SINGLE VIEW CHEST CLINICAL HISTORY: Atypical chest pain. FINDINGS: An AP, portable, upright chest radiograph is compared to chest x-ray and chest CT dated . Partial. It The cardiomediastinal silhouette is unremarkable. There is complete atelectasis of the left lower lobe. Milder atelectasis is seen at the right lung base. No large pleural effusion or pneumothorax Is seen. The bony thorax is grossly intact. IMPRESSION: There is complete atelectasis of the left lower lobe. Milder atelectasis is seen at the right lung base. This is likely unchanged from the 03/19/2023 examinations. Follow up with pulmonolog y is recommended. ACT 112: Negative or not required by law. Electronically signed by: Titi Guidry M.D. 04/09/2023 8:47 PM
[2023-04-09 21:00] LABS: Adenovirus PCR Not Detected (NotDetected); Bordetella parapertussis PCR Not Detected (NotDetected); Bordetella pertussis PCR Not Detected (NotDetected); Chlamydia pneumoniae PCR Not Detected (NotDetected); Coronavirus 229E PCR Not Detected (NotDetected); Coronavirus CoV-2 (COVID19)PCR Not Detected (NotDetected); Coronavirus HKU1 PCR Not Detected (NotDetected); Coronavirus NL63 PCR Not Detected (NotDetected); Coronavirus OC43PCR Not Detected (NotDetected); Human Metapneumovirus PCR Not Detected (NotDetected); Influenza A PCR Not Detected (NotDetected); Influenza B PCR Not Detected (NotDetected); Mycoplasma pneumoniae PCR Not Detected (NotDetected); Parainfluenza Virus 1 PCR Not Detected (NotDetected); Parainfluenza Virus 2 PCR Not Detected (NotDetected); Parainfluenza Virus 3 PCR Not Detected (NotDetected); Parainfluenza Virus 4 PCR Not Detected (NotDetected); Respiratory Syncytial VirusPCR Not Detected (NotDetected); Rhinovirus/Enterovirus PCR Not Detected (NotDetected)
[2023-04-09 21:19] LABS: Hemoglobin 12.3 g/dl (12.0-16.0); Mean Corpuscular Hemoglobin 23.8 pg (25.0-34.0); Mean Corpuscular Volume 79.5 fL (80.0-100.0); Mean Platelet Volume 9.9 fL (9.4-12.4); Platelet Count 258 K/uL (130-400); RDW Coefficient of Variation 25.9 % (11.5-14.5); RDW Standard Deviation 70.6 fL (36.4-46.3); Red Blood Count 5.16 M/uL (4.20-5.40); White Blood Count 7.69 K/ul (4.8-10.8)
[2023-04-09] MEDS ORDERED: methylPREDNISolone 125 MG/2 ML VIAL IV STA (21:24)
[2023-04-09] MEDS ORDERED: ALBUT/IPRATROP 3MG/0.5MG NEB 3 ML VIAL NEB ONE (21:24)
[2023-04-09 21:46] LABS: Partial Thromboplastin Ratio 0.9; Partial Thromboplastin Time 25 Seconds (21-31); Prothrombin Time 10.8 Seconds (9.0-12.0)
[2023-04-09 21:58] LABS: Anisocytosis Present; Basophils # (auto) 0.04 K/uL (0.00-0.20); Basophils % (auto) 0.5 %; Eosinophils # (auto) 0.02 K/uL (0.00-0.50); Eosinophils % (auto) 0.3 %; Immature Granulocytes # (auto) 0.04 K/uL (0.01-0.20); Immature Granulocytes % (auto) 0.5 %; Lymphocytes # (auto) 1.72 K/uL (1.20-3.40); Lymphocytes % (auto) 22.4 %; Monocytes # (auto) 0.61 K/uL (0.11-0.59); Monocytes % (auto) 7.9 %; Neutrophils # (auto) 5.26 K/uL (1.40-6.50); Neutrophils % (auto) 68.4 %; Polychromasia 1+
[2023-04-09 22:04] LABS: Alanine Aminotransferase 17 U/L (7-52); Albumin Globulin Ratio 1.1 (0.9-2); Albumin Level 3.9 gm/dl (3.4-5.0); Alkaline Phosphatase 158 U/L (34-104); Anion Gap 9 (3-11); Aspartate Aminotransferase 20 U/L (13-39); BUN Creatinine Ratio 29.3 (10-20); Bilirubin,Total 0.4 mg/dl (0.2-1.0); Blood Urea Nitrogen 12 mg/dl (6-23); Calcium 10.5 mg/dl (8.6-10.3); Carbon Dioxide 29 mmol/L (21-32); Chloride 101 mmol/L (98-107); Est GFR (African American) 142.6 ml/min; Globulin 3.7 gm/dl (2.5-4.0); Glucose 102 mg/dl (70-99(Fasting)); Potassium 3.7 mmol/L (3.5-5.1); Sodium 139 mmol/L (136-145); Total Protein 7.6 gm/dl (6.0-8.3)
[2023-04-09 22:09] LABS: Troponin I High Sensitivity 4.9 pg/ml (0-14)
[2023-04-09] MEDS ORDERED: LORazepam 1 MG/1 ML SYR ED Inj Use IV STA (22:11)
[2023-04-09] MEDS ORDERED: ACETAMINOPHEN 1,000 MG/100 ML VIAL IV STA (22:23)
--- NOTE | 2023-04-09 22:28 | Emergency Department Note ---
Impression & Plan COPD exacerbation, Hypoxia ED Provider Note Diagnosis: COPD exacerbation, hypoxia Disposition: Admission CHIEF COMPLAINT: Headache, shortness of breath HPI: Patient is a 47-year-old female presenting with complaint of headache which brought her to the emergency room. Patient was found to be tachycardic and hypoxic upon arrival. Patient was 77% on room air. Patient states recently she was on oxygen in the hospital but was weaned off before discharge. Patient states she was discharged 2 days ago. Patient states due to aspiration risk she had a PEG tube placed. Patient has longstanding history of COPD. Patient wheezing on exam today. Patient requiring BiPAP upon my evaluation. PAST MEDICAL HISTORY: See Below PAST SURGICAL HISTORY: See Below SOCIAL HISTORY: See Below HOME MEDICATIONS: See Below ALLERGIES: See Below VITALS: See Below PHYSICAL EXAMINATION: GENERAL: Well appearing, well nourished, NAD, non-toxic. EYE EXAM: Normal conjunctiva. OROPHARYNX: Moist mucus membranes. Grossly normal dentition. NECK: Supple, LUNGS: Wheezing bilaterally, increased work of breathing HEART: NSR ABDOMEN: Abdomen soft, PEG tube in place BACK: No CVA TTP. SKIN: No rashes and no bruising. UPPER EXTREMITIES: Upper extremities are grossly normal LOWER EXTREMITIES: Grossly normal, no edema. NEURO EXAM: A&O x3,, normal speech, moves all 4 extremities PSYCH: Cooperative MEDICAL DECISION MAKING: Reviewed external documents: Discharge summary 04/15/2023 History obtained from: Patient, significant other, mother ER Course: Patient is a 47-year-old female with history of COPD recent discharge from the hospital after PEG tube placement due to significant aspiration pneumonia events. Patient over the past 24 hours time has been having increased sputum and cough. Patient found to be tachycardic and hypoxic. I was asked by nursing staff at 2114 to come and evaluate the patient at bedside. Patient was tachycardic and hypoxic. Patient was on a nonrebreather at 15 L/min when still hypoxic. Patient placed on BiPAP. Patient due to significant hypoxia had a CT of the chest ordered to rule out pulmonary embolism. Patient's initial complaint today was headache and a CT of the head was also ordered. Patient's CT scans both do not show any new pathology present. Patient had no intracranial hemorrhage. Patient CTA of the chest shows no pulmonary embolism. Patient has continued signs of aspiration pneumonia in both right and left lung which were seen on imaging studies 2 weeks prior. Patient today does not have any leukocytosis. Patient has no lactate elevation. Patient tolerating BiPAP well. Patient's case rhonda with hospitalist service will decide if antibiotics are necessary at this time. Patient's family and significant other were discussed with treatment plan. Patient's significant other is disappointed that she has to keep being admitted after a day or 2 at home because her oxygen levels decreased. He is wondering if she would qualify for oxygen in the future Labs (independently interpreted) are significant for: No leukocytosis, no elevation of lactate Imaging results (independently interpreted): Chest x-ray without overt pneumonia present EKG interpretation (independently interpreted): Sinus tachycardia, left bundle branch block Medications given: Solu-Medrol, hour-long DuoNeb treatment Consultants: Hospitalist Chronic conditions affecting care: COPD Triage Nursing notes reviewed and agree them. Vital Signs: reviewed and remarkable for: Tachycardia, hypoxia Critical care; 50 mins includes time evaluated patient at bedside documenting reviewing old notes and treatment. This time does not include time for procedures. Past Med/Surg History Medical History Achalasia Acute respiratory failure with hypoxia COVID-19 Ovarian cyst Poor dentition COPD (chronic obstructive pulmonary disease) Difficulty swallowing Difficulty chewing Depression Anxiety Tobacco abuse Marijuana smoker Constipation Arthritis Scoliosis Surgical History History of esophagogastroduodenoscopy (EGD) Family History Other Family history non-contributory Social History Smoking Status: Former smoker Tobacco Type: Cigarettes Cigarettes Per Day: 1 PACK/DAY; Second Hand Exposure: Yes; Do You Dip or Chew Tobacco: No; Hx Alcohol Use: No Hx Substance Use: No Preferred Language: Setswana Communication Ability: Effective Visual Impairment: No Limitations Billet Recorder Required: No Beliefs That Will Affect Care: None marital status: Single Current Living Situation: Family How many Children do You have: 1 Feels Safe at Home: Yes Diet: regular Assistive Devices: None Allergies Allergies Allergy/AdvReac Type Severity Reaction Status Date / Time No Known Allergies Allergy Verified 03/30/23 10:21 Home Meds Previous Rx's Medication Instructions Recorded albuterol sulfate 90 mcg/actuation 2 puff inhalation QID PRN 11/28/22 aerosol inhaler Shortness Of Breath #18 grams umeclidinium 62.5 mcg-vilanterol 1 inh inhalation DAILY #60 ea 11/28/22 25 mcg/actuation powdr for inhalation (Anoro Ellipta) nutrition [id number] 1 ea G-tube DAILY@1800 #6,000 mL 04/06/23 0.05 gram-1.2 kcal/mL tube feed liquid (Fibersource HN) Results & Data (ED) Vital Signs Vital Signs - 24 hr 04/09/23 19:39 04/09/23 19:46 04/09/23 19:55 Temperature 36.7 C Temperature Source Oral Pulse Rate 140 H Pulse Rate [Apical] Respiratory Rate 20 Respiratory Effort / Characteristics Non-Labored Spontaneous Respiratory Depth Normal Respiratory Pattern Regular Blood Pressure 110/81 Blood Pressure [Right Arm] Blood Pressure Mean 90 Blood Pressure Mean [Right Arm] Blood Pressure Position Sitting Blood Pressure Position [Right Arm] Pulse Oximetry 77 L 90 77 L Oxygen Delivery Method Room Air Oxymask Room Air Oxymask Oxygen Flow Rate 15 0 Fraction of Inspired Oxygen Sepsis Recent Fever Within 48 Hours No Sepsis New/Unexplained Change in Mental Status N/A Sepsis Action Taken by Nursing No Action Required Oxygen Flow Rate - Titration 10 Pulse Oximetry Post Tiitration 87 L 04/09/23 21:05 04/09/23 21:08 04/09/23 21:13 Temperature Temperature Source Pulse Rate 120 H Pulse Rate [Apical] Respiratory Rate Respiratory Effort / Characteristics Respiratory Depth Respiratory Pattern Blood Pressure Blood Pressure [Right Arm] Blood Pressure Mean Blood Pressure Mean [Right Arm] Blood Pressure Position Blood Pressure Position [Right Arm] Pulse Oximetry 82 L 83 L Oxygen Delivery Method Non-rebreather Non-rebreather Oxygen Flow Rate 15 15 Fraction of Inspired Oxygen Sepsis Recent Fever Within 48 Hours Sepsis New/Unexplained Change in Mental Status Sepsis Action Taken by Nursing Oxygen Flow Rate - Titration Pulse Oximetry Post Tiitration 04/09/23 21:22 04/09/23 21:24 04/09/23 21:25 Temperature Temperature Source Pulse Rate Pulse Rate [Apical] 116 H 115 H Respiratory Rate 33 H 27 H Respiratory Effort / Characteristics Respiratory Depth Respiratory Pattern Blood Pressure Blood Pressure [Right Arm] Blood Pressure Mean Blood Pressure Mean [Right Arm] Blood Pressure Position Blood Pressure Position [Right Arm] Pulse Oximetry 90 92 93 Oxygen Delivery Method BiPAP BiPAP BiPAP Oxygen Flow Rate Fraction of Inspired Oxygen 100 Sepsis Recent Fever Within 48 Hours Sepsis New/Unexplained Change in Mental Status Sepsis Action Taken by Nursing Oxygen Flow Rate - Titration Pulse Oximetry Post Tiitration 04/09/23 21:27 04/09/23 21:31 04/09/23 21:57 Temperature Temperature Source Pulse Rate 115 H Pulse Rate [Apical] 113 H 113 H Respiratory Rate 27 H 30 H Respiratory Effort / Characteristics Spontaneous Respiratory Depth Normal Respiratory Pattern Blood Pressure Blood Pressure [Right Arm] 116/87 Blood Pressure Mean Blood Pressure Mean [Right Arm] 96 Blood Pressure Position Blood Pressure Position [Right Arm] Semi-fowlers Pulse Oximetry 93 97 100 Oxygen Delivery Method BiPAP BiPAP Oxygen Flow Rate Fraction of Inspired Oxygen 100 Sepsis Recent Fever Within 48 Hours Sepsis New/Unexplained Change in Mental Status Sepsis Action Taken by Nursing Oxygen Flow Rate - Titration Pulse Oximetry Post Tiitration 04/09/23 22:54 04/09/23 23:00 Temperature Temperature Source Pulse Rate 115 H Pulse Rate [Apical] 110 H Respiratory Rate 38 H 18 Respiratory Effort / Characteristics Spontaneous Respiratory Depth Respiratory Pattern Tachypnea Blood Pressure Blood Pressure [Right Arm] Blood Pressure Mean Blood Pressure Mean [Right Arm] Blood Pressure Position Blood Pressure Position [Right Arm] Pulse Oximetry 98 97 Oxygen Delivery Method BiPAP Oxygen Flow Rate Fraction of Inspired Oxygen 50 Sepsis Recent Fever Within 48 Hours Sepsis New/Unexplained Change in Mental Status Sepsis Action Taken by Nursing Oxygen Flow Rate - Titration Pulse Oximetry Post Tiitration Laboratory Data 04/09/23 21:05 04/09/23 21:05 Lab Results 04/09/23 04/09/23 04/09/23 Range/Units 19:59 21:05 21:06 WBC 7.69 (4.8-10.8) K/ul RBC 5.16 (4.20-5.40) M/uL Hgb 12.3 (12.0-16.0) g/dl Hct 41.0 (37.0-47.0) % MCV 79.5 L (80.0-100.0) fL MCH 23.8 L (25.0-34.0) pg MCHC 30.0 L (32.0-36.0) g/dL RDW Std Deviation 70.6 H (36.4-46.3) fL RDW Coeff of Abhishek 25.9 H (11.5-14.5) % Plt Count 258 (130-400) K/uL MPV 9.9 (9.4-12.4) fL Immature Gran % (Auto) 0.5 % Neut % (Auto) 68.4 % Lymph % (Auto) 22.4 % Bollinger % (Auto) 7.9 % Eos % (Auto) 0.3 % Baso % (Auto) 0.5 % Neut # (Auto) 5.26 (1.40-6.50) K/uL Lymph # (Auto) 1.72 (1.20-3.40) K/uL Bollinger # (Auto) 0.61 H (0.11-0.59) K/uL Eos # (Auto) 0.02 (0.00-0.50) K/uL Baso # (Auto) 0.04 (0.00-0.20) K/uL Immature Gran # (Auto) 0.04 (0.01-0.20) K/uL Polychromasia 1+ Anisocytosis Present PT 10.8 (9.0-12.0) Seconds INR 1.0 (0.9-1.1) APTT 25 (21-31) Seconds PTT Ratio 0.9 Sodium 139 (136-145) mmol/L Potassium 3.7 (3.5-5.1) mmol/L Chloride 101 (98-107) mmol/L Carbon Dioxide 29 (21-32) mmol/L Anion Gap 9 (3-11) BUN 12 (6-23) mg/dl Creatinine 0.41 L (0.6-1.2) mg/dl Est Cr Clr Drug Dosing Not Reportable Est GFR ( Amer) 142.6 ml/min Est GFR (Non-Af Amer) 123.0 ml/min BUN/Creatinine Ratio 29.3 H (10-20) Glucose 102 H (70-99(Fasting)) mg/dl Lactate (0.4-2.0) mmol/L Calcium 10.5 H (8.6-10.3) mg/dl Total Bilirubin 0.4 (0.2-1.0) mg/dl AST 20 (13-39) U/L ALT 17 (7-52) U/L Alkaline Phosphatase 158 H (34-104) U/L Troponin I High Sens 4.9 (0-14) pg/ml B-Natriuretic Peptide 47 (0-100) pg/ml Total Protein 7.6 (6.0-8.3) gm/dl Albumin 3.9 (3.4-5.0) gm/dl Globulin 3.7 (2.5-4.0) gm/dl Albumin/Globulin Ratio 1.1 (0.9-2) Adenovirus (PCR) Not Detected (NotDetected) B. pertussis DNA (PCR) Not Detected (NotDetected) B.parapertussis DNA PCR Not Detected (NotDetected) C. pneumoniae DNA (PCR) Not Detected (NotDetected) Coronavirus OC43 (PCR) Not Detected (NotDetected) Coronavirus HKU1 (PCR) Not Detected (NotDetected) Coronavirus 229E (PCR) Not Detected (NotDetected) SARS-CoV-2 (PCR) Not Detected (NotDetected) Coronavirus NL63 (PCR) Not Detected (NotDetected) Human Metapneumovir PCR Not Detected (NotDetected) Influenza Type A (PCR) Not Detected (NotDetected) Influenza Type B (PCR) Not Detected (NotDetected) M. pneumoniae (PCR) Not Detected (NotDetected) Parainfluenza 1 (PCR) Not Detected (NotDetected) Parainfluenza 2 (PCR) Not Detected (NotDetected) Parainfluenza 3 (PCR) Not Detected (NotDetected) Parainfluenza 4 (PCR) Not Detected (NotDetected) RSV (PCR) Not Detected (NotDetected) Entero/Rhino (PCR) Not Detected (NotDetected) 04/09/23 Range/Units 21:42 WBC (4.8-10.8) K/ul RBC (4.20-5.40) M/uL Hgb (12.0-16.0) g/dl Hct (37.0-47.0) % MCV (80.0-100.0) fL MCH (25.0-34.0) pg MCHC (32.0-36.0) g/dL RDW Std Deviation (36.4-46.3) fL RDW Coeff of Abhishek (11.5-14.5) % Plt Count (130-400) K/uL MPV (9.4-12.4) fL Immature Gran % (Auto) % Neut % (Auto) % Lymph % (Auto) % Bollinger % (Auto) % Eos % (Auto) % Baso % (Auto) % Neut # (Auto) (1.40-6.50) K/uL Lymph # (Auto) (1.20-3.40) K/uL Bollinger # (Auto) (0.11-0.59) K/uL Eos # (Auto) (0.00-0.50) K/uL Baso # (Auto) (0.00-0.20) K/uL Immature Gran # (Auto) (0.01-0.20) K/uL Polychromasia Anisocytosis PT (9.0-12.0) Seconds INR (0.9-1.1) APTT (21-31) Seconds PTT Ratio Sodium (136-145) mmol/L Potassium (3.5-5.1) mmol/L Chloride (98-107) mmol/L Carbon Dioxide (21-32) mmol/L Anion Gap (3-11) BUN (6-23) mg/dl Creatinine (0.6-1.2) mg/dl Est Cr Clr Drug Dosing Est GFR ( Amer) ml/min Est GFR (Non-Af Amer) ml/min BUN/Creatinine Ratio (10-20) Glucose (70-99(Fasting)) mg/dl Lactate 0.9 (0.4-2.0) mmol/L Calcium (8.6-10.3) mg/dl Total Bilirubin (0.2-1.0) mg/dl AST (13-39) U/L ALT (7-52) U/L Alkaline Phosphatase (34-104) U/L Troponin I High Sens (0-14) pg/ml B-Natriuretic Peptide (0-100) pg/ml Total Protein (6.0-8.3) gm/dl Albumin (3.4-5.0) gm/dl Globulin (2.5-4.0) gm/dl Albumin/Globulin Ratio (0.9-2) Adenovirus (PCR) (NotDetected) B. pertussis DNA (PCR) (NotDetected) B.parapertussis DNA PCR (NotDetected) C. pneumoniae DNA (PCR) (NotDetected) Coronavirus OC43 (PCR) (NotDetected) Coronavirus HKU1 (PCR) (NotDetected) Coronavirus 229E (PCR) (NotDetected) SARS-CoV-2 (PCR) (NotDetected) Coronavirus NL63 (PCR) (NotDetected) Human Metapneumovir PCR (NotDetected) Influenza Type A (PCR) (NotDetected) Influenza Type B (PCR) (NotDetected) M. pneumoniae (PCR) (NotDetected) Parainfluenza 1 (PCR) (NotDetected) Parainfluenza 2 (PCR) (NotDetected) Parainfluenza 3 (PCR) (NotDetected) Parainfluenza 4 (PCR) (NotDetected) RSV (PCR) (NotDetected) Entero/Rhino (PCR) (NotDetected) Administered Medications Discontinued Medications Albuterol (Albut/Ipratrop 3mg/0.5mg Neb 3 Ml Vial) 12 ml NEB ONE ONE; Protocol Stop: 04/09/23 21:25 Last Admin: 04/09/23 21:25 Dose: 12 ml Documented By: LETY Acetaminophen (Ofirmev) 1,000 mg in 100 mls @ 400 mls/hr IV NOW STA Stop: 04/09/23 22:37 Last Infusion: 04/09/23 23:25 Dose: Infused Documented By: Admin: 04/09/23 22:26 Dose: 400 mls/hr Documented By: SKYE Ioversol (Optiray 320 125ml) 108 ml IV ONCE ONE Stop: 04/09/23 22:47 Last Admin: 04/09/23 22:47 Dose: 108 ml Documented By: SONA Lorazepam (Lorazepam 1 Mg/1 Ml Syr Ed Inj Use) 0.5 mg IV ONE STA Stop: 04/09/23 22:12 Last Admin: 04/09/23 22:13 Dose: 0.5 mg Documented By: SKYE Methylprednisolone (Methylprednisolone 125 Mg/2 Ml Vial) 125 mg IV NOW STA Stop: 04/09/23 21:25 Last Admin: 04/09/23 21:31 Dose: 125 mg Documented By: LCD Imaging Data Radiologist's Impression: Chest X-Ray 04/09/23 19:46 SINGLE VIEW CHEST CLINICAL HISTORY: Atypical chest pain. FINDINGS: An AP, portable, upright chest radiograph is compared to chest x-ray and chest CT dated 03/19/2023. Partial. It The cardiomediastinal silhouette is unremarkable. There is complete atelectasis of the left lower lobe. Milder atelectasis is seen at the right lung base. No large pleural effusion or pneumothorax Is seen. The bony thorax is grossly intact. IMPRESSION: There is complete atelectasis of the left lower lobe. Milder atelectasis is seen at the right lung base. This is likely unchanged from the 03/19/2023 examinations. Follow up with pulmonology is recommended. ACT 112: Negative or not required by law. Electronically signed by: Titi Guidry M.D. 04/09/2023 8:[address] 04/09/23 21:24 Exam(s): CT HEAD Without Contrast EXAM: CT Head Without Intravenous Contrast CLINICAL HISTORY: Reason for exam: headache. TECHNIQUE: Axial computed tomography images of the head/brain without intravenous contrast. CTDI is 35.22 mGy and DLP is 624.41 mGy-cm. Automated exposure control was utilized for the study. A dose lowering technique was utilized adhering to the principles of ALARA. COMPARISON: Brain MRI March 24, 2023. FINDINGS: No acute intracranial hemorrhage. No midline shift or mass effect. The territorial young-white matter differentiation is maintained throughout. Age-related cerebral volume loss. Periventricular and subcortical white matter hypoattenuation, consistent with chronic microangiopathy. The visualized orbits appear grossly unremarkable. The calvarium is intact. The visualized paranasal sinuses and mastoid air cells are grossly clear. IMPRESSION: No acute intracranial hemorrhage, midline shift, or mass effect. Electronically signed by: Mickey Kapoor MD 04/09/23 23:13 PM Chest CTA 04/09/23 21:27 Exam(s): CTA CHEST IV Amt: 108 ml opti 320 EXAM: CT Angiography Chest With Intravenous Contrast CLINICAL HISTORY: Reason for exam: PE, hypoxia. TECHNIQUE: Axial computed tomographic angiography images of the chest with intravenous contrast. CTDI is 6.78 mGy and DLP is 227.5 mGy-cm. Automated exposure control was utilized for the study. A dose lowering technique was utilized adhering to the principles of ALARA. MIP reconstructed images were created and reviewed. COMPARISON: Chest CT March 19, 2023. FINDINGS: Pulmonary arteries: Unremarkable. No pulmonary embolism. Aorta: No acute findings. No thoracic aortic aneurysm. Lungs: Mild consolidation at the RIGHT lung base, correlate for aspiration pneumonia, mildly improving when compared to March 19, 2023. Lower atelectasis of the LEFT lower lobe, with debris in the distal bronchi. Correlate for need for pulmonology evaluation. This is similar in appearance when compared to March 19, 2023. Pleural space: Unremarkable. No significant effusion. No pneumothorax. Heart: Unremarkable. No cardiomegaly. No significant pericardial effusion. No evidence of RV dysfunction. Bones/joints: No acute fracture. No dislocation. Soft tissues: Unremarkable. Lymph nodes: Unremarkable. No enlarged lymph nodes. IMPRESSION: 1. Mild consolidation at the RIGHT lung base, correlate for aspiration pneumonia, mildly improving when compared to March 19, 2023. 2. Lower atelectasis of the LEFT lower lobe, with debris in the distal bronchi. Correlate for need for pulmonology evaluation. This is similar in appearance when compared to March 19, 2023. Electronically signed by: Mickey Kapoor MD 04/09/23 23:11 PM Discharge Plan Visit Data Chief Complaint: Headache Stated Complaint: MIGRAINE ED Provider: Yan Mascorro Discharge Problem: COPD exacerbation, Hypoxia Forms Stand Alone Forms: Count Includes [facility] Prescriptions Prescriptions: No Action albuterol sulfate 90 mcg/actuation HFA aerosol inhaler 2 puff Inhalation QID PRN (Reason: Shortness Of Breath) Qty: 18 3RF Anoro Ellipta 62.5-25 mcg/actuation blister with device 1 inh inhalation DAILY Qty: 60 8RF Fibersource HN 0.05 gram- 1.2 kcal/mL Liquid 1 ea G-tube DAILY@1800 Qty: 6000 0RF Rx Instructions: fibersource 90ml/hr for 12 hours a day water 50 ml before and after, 120 tid during day Referrals Referrals: Deonte Cortés, [Primary Care Provider] -
[2023-04-09] MEDS ORDERED: OPTIRAY 320 125ml IV ONE (22:46)
--- NOTE | 2023-04-09 23:12 | CT Scan Report ---
Exam(s): CTA CHEST IV Amt: 108 ml opti 320 EXAM: CT Angiography Chest With Intravenous Contrast CLINICAL HISTORY: Reason for exam: PE, hypoxia. TECHNIQUE: Axial computed tomographic angiography images of the chest with intravenous contrast. CTDI is 6.78 mGy and DLP is 227.5 mGy-cm. Automated exposure control was utilized for the study. A dose lowering technique was utilized adhering to the principles of ALARA. MIP reconstructed images were created and reviewed. COMPARISON: Chest CT March 19, 2023. FINDINGS: Pulmonary arteries: Unremarkable. No pulmonary embolism. Aorta: No acute findings. No thoracic aortic aneurysm. Lungs: Mild consolidation at the RIGHT lung base, correlate for aspiration pneumonia, mildly improving when compared to March 19, 2023. Lower atelectasis of the LEFT lower lobe, with debris in the distal bronchi. Correlate for need for pulmonology evaluation. This is similar in appearance when compared to March 19, 2023. Pleural space: Unremarkable. No significant effusion. No pneumothorax. Heart: Unremarkable. No cardiomegaly. No significant pericardial effusion. No evidence of RV dysfunction. Bones/joints: No acute fracture. No dislocation. Soft tissues: Unremarkable. Lymph nodes: Unremarkable. No enlarged lymph nodes. IMPRESSION: 1. Mild consolidation at the RIGHT lung base, correlate for aspiration pneumonia, mildly improving when compared to March 19, 2023. 2. Lower atelectasis of the LEFT lower lobe, with debris in the distal bronchi. Correlate for need for pulmonology evaluation. This is similar in appearance when compared to March 19, 2023. Electronically signed by: Mickey Kapoor MD 04/09/23 23:11 PM
--- NOTE | 2023-04-09 23:14 | CT Scan Report ---
Exam(s): CT HEAD Without Contrast EXAM: CT Head Without Intravenous Contrast CLINICAL HISTORY: Reason for exam: headache. TECHNIQUE: Axial computed tomography images of the head/brain without intravenous contrast. CTDI is 35.22 mGy and DLP is 624.41 mGy-cm. Automated exposure control was utilized for the study. A dose lowering technique was utilized adhering to the principles of ALARA. COMPARISON: Brain MRI March 24, 2023. FINDINGS: No acute intracranial hemorrhage. No midline shift or mass effect. The territorial young-white matter differentiation is maintained throughout. Age-related cerebral volume loss. Periventricular and subcortical white matter hypoattenuation, consistent with chronic microangiopathy. The visualized orbits appear grossly unremarkable. The calvarium is intact. The visualized paranasal sinuses and mastoid air cells are grossly clear. IMPRESSION: No acute intracranial hemorrhage, midline shift, or mass effect. Electronically signed by: Mickey Kapoor MD 04/09/23 23:13 PM
[2023-04-10] MEDS ORDERED: PIPERACILLIN/TAZOBACTAM 4.5 GM in DEXTROSE 5% MINI-B 100 ML IV STA (01:16)
[2023-04-10] MEDS ORDERED: PIPERACILLIN/TAZOBACTAM 4.5 GM/100 ML BAG IV STA (01:18)
--- NOTE | 2023-04-10 01:33 | History & Physical Report ---
Date of Service April 10, 2023 Assessment & Plan (1) Acute respiratory failure with hypoxia: Plan: Multifactorial secondary to aspiration pneumonia as well as COPD with acute exacerbation. Please see below (2) Aspiration pneumonia: Plan: Just discharged within the last 2 to 3 days in the hospital. Will begin the patient back on Zosyn IV keep the patient strictly n.p.o. for now. (3) COPD exacerbation: Plan: Nebulizers, IV Zosyn as well as IV Solu-Medrol (4) Severe protein-calorie malnutrition: Plan: Patient does have significant dysphagia she does have a PEG tube in place. We have consulted dietary for tube feed recommendations in the a.m. BMI is 15.2 weighing 40.1 kg (5) Dysphagia: Plan: As above Plan As described above. Please refer to orders for further planning. History of Present Illness Chief Complaint: Headache, shortness of breath, history of aspiration pneumonia Primary Care Provider: Deonte Cortés DO 47-year-old female with a significant history of advancing COPD and history of dysphagia with significant aspiration just discharged from the hospital within the last 2 to 3 days. She developed a headache at home and increasing shortness of breath was brought to the ER for further evaluation and treatment. In the emergency department she had a noncontrast CT of the head which was negative for acute finding. In addition she had a CTA of the chest which d emonstrated ongoing consolidation of the right lung base possibly mildly improved compared to March 19. There was no evidence of pulmonary embolism. In the emergency department her sats decompensated down into the 70s she was placed on an Oxymizer as she could not maintain her sats that were still in the 80s therefore she was placed on BiPAP. In the emergency department she received 125 mg of Solu-Medrol DuoNeb treatment half a milligram of Ativan and a gram of Tylenol IV We have ordered IV Zosyn. Will keep the patient strict NPO. Will attempt to get wean her off BiPAP overnight to an Oxymizer. Consult dietary in the morning for tube feeding recommendations. Allergies Allergy/AdvReac Type Severity Reaction Status Date / Time No Known Allergies Allergy Verified 03/30/23 10:21 Home Medications Medication Instructions Recorded Confirmed Type albuterol sulfate 90 mcg/actuation 2 puff inhalation QID PRN 11/28/22 04/09/23 Rx aerosol inhaler Shortness Of Breath #18 grams umeclidinium 62.5 mcg-vilanterol 1 inh inhalation DAILY #60 ea 11/28/22 04/09/23 Rx 25 mcg/actuation powdr for inhalation (Anoro Ellipta) nutrition bvqt-pcollx-CDM-fiber 1 ea G-tube DAILY@1800 #6,000 mL 04/06/23 04/09/23 Rx 0.05 gram-1.2 kcal/mL tube feed liquid (Fibersource HN) Past Med/Surg History Medical History Achalasia Acute respiratory failure with hypoxia COVID-19 Ovarian cyst Poor dentition COPD (chronic obstructive pulmonary disease) Difficulty swallowing Difficulty chewing Depression Anxiety Tobacco abuse Marijuana smoker Constipation Arthritis Scoliosis Surgical History History of esophagogastroduodenoscopy (EGD) Family History Other Family history non-contributory Social History Smoking Status: Former smoker Tobacco Type: Cigarettes Cigarettes Per Day: 1 PACK/DAY; Second Hand Exposure: Yes; Do You Dip or Chew Tobacco: No; Hx Alcohol Use: No Hx Substance Use: No Preferred Language: Turkmen Communication Ability: Effective Visual Impairment: No Limitations Gaming Dealer Required: No Beliefs That Will Affect Care: None marital status: Single Current Living Situation: Family How many Children do You have: 1 Feels Safe at Home: Yes Diet: regular Assistive Devices: None Review of Systems Review of Systems: A 10 point review of system was obtained and unless otherwise stated here or in history of present illness are negative and noncontributory to chief complaint. Physical Exam Physical Exam: General: 47-year-old female who appears significantly older than his stated age accompanied by her boyfriend Naseem as well as her mother at the time my examination. She does wake up with verbal stimuli she does answer questions. Her biggest complaint is the BiPAP mask at this time. Upon entering the room she was resting comfortably on BiPAP with a sat of 100%. Does appear that the patient has a significant degree of cachexia HEENT: Normocephalic atraumatic pupils are equal round and reactive to light bilaterally. No scleral icterus no conjunctival injection external auditory canals are patent septum is in the midline nose is without discharge oral mucosa is pink and dry without lesion. NECK: Supple no rigidity no lymphadenopathy no thyromegaly no carotid bruits no JVD no masses. HEART: Regular rate and rhythm I do not appreciate any ectopy or rub. No murmur. LUNGS: Coarse breath sounds with rhonchi right lower lobe worse than left ABDOMEN: Soft nontender, no rebound, no peritoneal signs, positive bowel sounds, no appreciable organomegaly. PEG tube noted. Surrounding site is intact clean and dry with no surrounding erythema EXTREMITIES: Intact, no peripheral cyanosis, clubbing or edema. Strength globally diminished in all of her extremities. She only ambulates a few steps with assistance according to her boyfriend. NEUROLOGICAL: Cranial nerves II through XII are grossly intact with no focal deficit elicited upon examination. No tremor. Results & Data Results & Data Vital Signs (Past 12 Hours) Vital Signs Temp Pulse Pulse Resp BP BP Pulse Ox 04/10/23 01:15 99 04/10/23 01:15 99 04/10/23 01:10 114 H 04/10/23 01:00 110 H 20 113/82 99 04/09/23 23:00 110 H 18 97 04/09/23 22:54 115 H 38 H 98 04/09/23 21:57 113 H 116/87 100 04/09/23 21:31 113 H 30 H 97 04/09/23 21:27 115 H 27 H 93 04/09/23 21:25 115 H 27 H 93 04/09/23 21:24 92 04/09/23 21:22 116 H 33 H 90 04/09/23 21:13 83 L 04/09/23 21:08 82 L 04/09/23 21:05 120 H 04/09/23 19:55 77 L 04/09/23 19:46 90 04/09/23 19:39 36.7 C 140 H 20 110/81 77 L O2 Del Method O2 Flow Rate FiO2 04/10/23 01:15 Oxymask 4 04/10/23 01:15 Oxymask 6 04/10/23 01:10 04/10/23 01:00 BiPAP 04/09/23 23:00 BiPAP 04/09/23 22:54 50 04/09/23 21:57 BiPAP 04/09/23 21:31 BiPAP 04/09/23 21:27 100 04/09/23 21:25 BiPAP 100 04/09/23 21:24 BiPAP 04/09/23 21:22 BiPAP 04/09/23 21:13 Non-rebreather 15 04/09/23 21:08 Non-rebreather 15 04/09/23 21:05 04/09/23 19:55 Room Air, Oxymask 0 04/09/23 19:46 Oxymask 15 04/09/23 19:39 Room Air Code Status & VTE Plan Code Status Full code I discussed with the patient's boyfriend and mother at the bedside. VTE Prophylaxis Plan VTE Prophylaxis will be ordered: Yes PG Care Time/CCT Total # of Minutes Spent Total Time Spent with Patient: Total time spent is greater than 50% in coordination of care (as documented) at patient's floor/unit and/or counseling patient: Coding Level of Care Code 87816 INT INP/OBS CARE 3/75MIN Diagnoses Acute respiratory failure with hypoxia J96.01 Aspiration pneumonia J69.0 COPD exacerbation J44.1 Severe protein-calorie malnutrition E43 Dysphagia R13.10
[2023-04-10] MEDS ORDERED: ONDANSETRON INJ 2 MG/ML 2 ML VIAL ONE (02:09)
[2023-04-10] MEDS ORDERED: ALBUTEROL HFA 8 GM INHALER INH PRN (04:00)
[2023-04-10] MEDS: D5NSS + 20MEQ KCL 20 MEQ/1,000 ML BAG IV SCH ×2 (05:04→18:11)
[2023-04-10 06:18] LABS: Hematocrit (blood only) 36.6 % (37.0-47.0); Mean Corpuscular Hemoglobin 23.8 pg (25.0-34.0); Mean Corpuscular Hgb Conc 30.1 g/dL (32.0-36.0); Mean Platelet Volume 10.2 fL (9.4-12.4); Platelet Count 261 K/uL (130-400); RDW Coefficient of Variation 25.8 % (11.5-14.5); RDW Standard Deviation 69.8 fL (36.4-46.3); Red Blood Count 4.63 M/uL (4.20-5.40); White Blood Count 6.29 K/ul (4.8-10.8)
[2023-04-10 06:28] LABS: Albumin Globulin Ratio 1.1 (0.9-2); Albumin Level 3.7 gm/dl (3.4-5.0); Bilirubin,Total 0.6 mg/dl (0.2-1.0); Creatinine Clr Calc Pharmacy 100.1 ml/min; Est GFR (African American) 139.3 ml/min; Est GFR (Non-African American) 120.2 ml/min; Globulin 3.3 gm/dl (2.5-4.0); Potassium 4.1 mmol/L (3.5-5.1)
[2023-04-10] MEDS: PIPERACILLIN/TAZOBACTAM 4.5 GM in DEXTROSE 5% MINI-B 100 ML IV SCH ×3 (06:54→21:49)
[2023-04-10 06:57] LABS: Anisocytosis Present; Basophils # (auto) 0.02 K/uL (0.00-0.20); Basophils % (auto) 0.3 %; Immature Granulocytes # (auto) 0.02 K/uL (0.01-0.20); Immature Granulocytes % (auto) 0.3 %; Lymphocytes # (auto) 0.62 K/uL (1.20-3.40); Lymphocytes % (auto) 9.9 %; Monocytes # (auto) 0.09 K/uL (0.11-0.59); Monocytes % (auto) 1.4 %; Neutrophils # (auto) 5.54 K/uL (1.40-6.50); Neutrophils % (auto) 88.1 %
[2023-04-10] MEDS: HEPARIN SOD 5,000 UNIT/0.5 ML VIAL SQ SCH ×2 (07:52→21:48)
[2023-04-10] MEDS: UMECLIDINIUM/VILANTEROL 62.5/25MCG 7 PUFFS/INHALER INH SCH (07:52)
[2023-04-10] MEDS: methylPREDNISolone 40 MG in SYRINGE 0 ML IV SCH ×2 (07:52→21:48)
--- NOTE | 2023-04-10 12:16 | Electrocardiogram Report ---
Test Reason : Blood Pressure : / mmHG Vent. Rate : 139 BPM Atrial Rate : 000 BPM P-R Int : 000 ms QRS Dur : 118 ms QT Int : 352 ms P-R-T Axes : 000 -73 098 degrees QTc Int : 535 ms Probable Atrial flutter with 2 to 1 block Left axis deviation Left bundle branch block Abnormal ECG When compared with ECG of 19-MAR-2023 13:32, No significant change Confirmed by Amadeo Mejia ([id number]) on 04/10/2023 12:16:16 PM Referred By: REFERRED SELF Confirmed By:Amadeo Mejia
[2023-04-10] MEDS: TUBE FEEDING WATER FLUSH PEG SCH ×4 (12:37→23:22)
[2023-04-10] MEDS: PEPTAMEN 1.5 CAL 1,000 ML BAG PEG SCH (12:37)
[2023-04-10] MEDS: ACETAMINOPHEN SUSP 325 MG/10.15 ML UDC PEG PRN (19:03)
[2023-04-11] MEDS: TUBE FEEDING WATER FLUSH PEG SCH ×5 (03:30→20:00)
[2023-04-11] MEDS: PIPERACILLIN/TAZOBACTAM 4.5 GM in DEXTROSE 5% MINI-B 100 ML IV SCH ×3 (05:30→21:10)
[2023-04-11 06:18] LABS: Hematocrit (blood only) 28.8 % (37.0-47.0); Hemoglobin 8.6 g/dl (12.0-16.0); Mean Corpuscular Hemoglobin 23.6 pg (25.0-34.0); Mean Corpuscular Hgb Conc 29.9 g/dL (32.0-36.0); Mean Corpuscular Volume 79.1 fL (80.0-100.0); Platelet Count 216 K/uL (130-400); RDW Standard Deviation 70.2 fL (36.4-46.3); Red Blood Count 3.64 M/uL (4.20-5.40); White Blood Count 5.22 K/ul (4.8-10.8)
[2023-04-11 06:31] LABS: Anion Gap 1 (3-11); BUN Creatinine Ratio 21.2 (10-20); Blood Urea Nitrogen 7 mg/dl (6-23); C Reactive Protein < 0.50 mg/dl (0-0.5); Calcium 9.4 mg/dl (8.6-10.3); Carbon Dioxide 31 mmol/L (21-32); Chloride 110 mmol/L (98-107); Creatinine Clr Calc Pharmacy 141.4 ml/min; Est GFR (African American) > 150.0 ml/min; Est GFR (Non-African American) 132.1 ml/min; Glucose 139 mg/dl (70-99(Fasting)); Potassium 4.6 mmol/L (3.5-5.1); Sodium 142 mmol/L (136-145)
[2023-04-11] MEDS: MULTI VIT W/MINERALS LIQUID 15 ML UDC PO SCH (11:04)
[2023-04-11] MEDS: LACTATED RINGER'S 1,000 ML IV SCH (11:04)
[2023-04-11] MEDS: UMECLIDINIUM/VILANTEROL 62.5/25MCG 7 PUFFS/INHALER INH SCH (11:04)
[2023-04-11] MEDS: HEPARIN SOD 5,000 UNIT/0.5 ML VIAL SQ SCH ×2 (11:04→20:14)
[2023-04-11] MEDS: methylPREDNISolone 40 MG in SYRINGE 0 ML IV SCH ×2 (11:04→20:14)
[2023-04-11] MEDS: ACETAMINOPHEN SUSP 325 MG/10.15 ML UDC PEG PRN (11:19)
[2023-04-11] MEDS: ONDANSETRON INJ 2 MG/ML 2 ML VIAL IV PRN (11:22)
--- NOTE | 2023-04-11 21:29 | Hospitalist Progress Note ---
Date of Service April 11, 2023 Assessment & Plan (1) Acute respiratory failure with hypoxia: Plan: Multifactorial secondary to aspiration pneumonia as well as COPD with acute exacerbation. Please see below (2) Aspiration pneumonia: Plan: Just discharged within the last 2 to 3 days in the hospital. Will begin the patient back on Zosyn IV keep the patient strictly n.p.o. for now. Patient will need to be NPO at home, (3) COPD exacerbation: Plan: Nebulizers, IV Zosyn as well as IV Solu-Medrol (4) Severe protein-calorie malnutrition: Plan: Patient does have significant dysphagia she does have a PEG tube in place. We have consulted dietary for tube feed recommendations in the a.m. BMI is 15.2 weighing 40.1 kg (5) Dysphagia: Plan: As above Admission and Anticipated Discharge Date Admission Date: April 10, 2023 Subjective Patient reports no new symptoms. Review of Systems Review of Systems: All systems reviewed & are unremarkable except as noted in HPI & below Physical Exam Physical Exam: Resting comfortably. HEART: Regular rate and rhythm LUNGS: rhonchi right lower lobe worse than left ABDOMEN: Soft nontender, no rebound, no peritoneal signs, positive bowel sounds, no appreciable organomegaly. PEG tube noted. Surrounding site is intact clean and dry with no surrounding erythema Results & Data Results & Data Vital Signs (Past 12 Hours) Vital Signs Temp Pulse Resp BP BP Pulse Ox O2 Del Method 04/11/23 19:13 36.7 C 63 20 95/58 L 96 Room Air 04/11/23 18:33 Room Air 04/11/23 15:26 36.6 C 61 17 86/51 L 96 Room Air 04/11/23 10:30 36.3 C L 66 20 92/54 L 100 Oxymask O2 Flow Rate 04/11/23 19:13 04/11/23 18:33 04/11/23 15:26 04/11/23 10:30 2 PG Care Time/CCT Total # of Minutes Spent Total Time Spent with Patient: Total time spent is greater than 50% in coordination of care (as documented) at patient's floor/unit and/or counseling patient: Coding Level of Care Code 89557 SUB INP/OBS CARE 2/35MIN Diagnoses Acute respiratory failure with hypoxia J96.01 Aspiration pneumonia J69.0 COPD exacerbation J44.1 Severe protein-calorie malnutrition E43 Dysphagia R13.10
[2023-04-11] MEDS: PEPTAMEN 1.5 CAL 1,000 ML BAG PEG SCH (22:00)
[2023-04-12] MEDS: TUBE FEEDING WATER FLUSH PEG SCH ×7 (00:24→23:10)
[2023-04-12] MEDS: LACTATED RINGER'S 1,000 ML IV SCH ×2 (00:24→15:58)
[2023-04-12] MEDS: PIPERACILLIN/TAZOBACTAM 4.5 GM in DEXTROSE 5% MINI-B 100 ML IV SCH ×3 (05:29→21:28)
[2023-04-12 06:50] LABS: Hematocrit (blood only) 28.5 % (37.0-47.0); Hemoglobin 8.2 g/dl (12.0-16.0); Mean Corpuscular Hgb Conc 28.8 g/dL (32.0-36.0); Mean Corpuscular Volume 83.6 fL (80.0-100.0); Mean Platelet Volume 10.1 fL (9.4-12.4); Platelet Count 232 K/uL (130-400); RDW Coefficient of Variation 25.5 % (11.5-14.5); RDW Standard Deviation 73.7 fL (36.4-46.3); Red Blood Count 3.41 M/uL (4.20-5.40); White Blood Count 4.31 K/ul (4.8-10.8)
[2023-04-12 06:54] LABS: Alanine Aminotransferase 11 U/L (7-52); Albumin Globulin Ratio 1.3 (0.9-2); Albumin Level 2.9 gm/dl (3.4-5.0); Alkaline Phosphatase 75 U/L (34-104); Anion Gap 3 (3-11); Aspartate Aminotransferase 11 U/L (13-39); Bilirubin,Total 0.2 mg/dl (0.2-1.0); Blood Urea Nitrogen 6 mg/dl (6-23); C Reactive Protein < 0.50 mg/dl (0-0.5); Calcium 9.5 mg/dl (8.6-10.3); Carbon Dioxide 30 mmol/L (21-32); Chloride 107 mmol/L (98-107); Creatinine Clr Calc Pharmacy 153.7 ml/min; Est GFR (African American) > 150.0 ml/min; Est GFR (Non-African American) 136.4 ml/min; Globulin 2.2 gm/dl (2.5-4.0); Glucose 129 mg/dl (70-99(Fasting)); Magnesium 1.9 mg/dl (1.7-2.4); Potassium 4.2 mmol/L (3.5-5.1); Sodium 140 mmol/L (136-145); Total Protein 5.1 gm/dl (6.0-8.3)
[2023-04-12] MEDS: UMECLIDINIUM/VILANTEROL 62.5/25MCG 7 PUFFS/INHALER INH SCH (09:30)
[2023-04-12] MEDS: HEPARIN SOD 5,000 UNIT/0.5 ML VIAL SQ SCH ×2 (09:35→20:27)
[2023-04-12] MEDS: MULTI VIT W/MINERALS LIQUID 15 ML UDC PO SCH (09:35)
[2023-04-12] MEDS: methylPREDNISolone 40 MG in SYRINGE 0 ML IV SCH ×2 (09:35→20:27)
[2023-04-12] MEDS: ACETAMINOPHEN SUSP 325 MG/10.15 ML UDC PEG PRN ×3 (09:38→21:58)
--- NOTE | 2023-04-12 22:38 | Hospitalist Progress Note ---
Date of Service April 12, 2023 Assessment & Plan (1) Acute respiratory failure with hypoxia: Plan: Multifactorial secondary to aspiration pneumonia as well as COPD with acute exacerbation. Please see below (2) Aspiration pneumonia: Plan: Just discharged within the last 2 to 3 days in the hospital. Will begin the patient back on Zosyn IV keep the patient strictly n.p.o. for now. Patient will need to be NPO at home, this was reiterated on 04/12. (3) COPD exacerbation: Plan: Nebulizers, IV Zosyn as well as IV Solu-Medrol (4) Severe protein-calorie malnutrition: Plan: Patient does have significant dysphagia she does have a PEG tube in place. We have consulted dietary for tube feed recommendations in the a.m. BMI is 15.2 weighing 40.1 kg (5) Dysphagia: Plan: As above Admission and Anticipated Discharge Date Admission Date: April 10, 2023 Subjective 47 yo female reports no new symptoms. Patient is frustrated that she had to come back so soon. Review of Systems Review of Systems: All systems reviewed & are unremarkable except as noted in HPI & below Physical Exam Physical Exam: Resting comfortably. HEART: Regular rate and rhythm LUNGS: rhonchi right lower lobe worse than left ABDOMEN: Soft nontender, no rebound, no peritoneal signs, positive bowel sounds, no appreciable organomegaly. PEG tube noted. Surrounding site is intact clean and dry with no surrounding erythema Results & Data Results & Data Vital Signs (Past 12 Hours) Vital Signs Temp Pulse Pulse Resp BP Pulse Ox Pulse Ox 04/12/23 22:04 67 97 04/12/23 20:00 04/12/23 19:11 36.6 C 61 18 97/57 L 95 04/12/23 15:47 36.5 C 65 17 99/64 L 96 O2 Del Method O2 Del Method 04/12/23 22:04 Room Air 04/12/23 20:00 Room Air 04/12/23 19:11 Room Air 04/12/23 15:47 Room Air PG Care Time/CCT Total # of Minutes Spent Total Time Spent with Patient: Total time spent is greater than 50% in coordination of care (as documented) at patient's floor/unit and/or counseling patient: Coding Level of Care Code 36080 SUB INP/OBS CARE 2/35MIN Diagnoses Acute respiratory failure with hypoxia J96.01 Aspiration pneumonia J69.0 COPD exacerbation J44.1 Severe protein-calorie malnutrition E43 Dysphagia R13.10
[2023-04-13] MEDS: ONDANSETRON INJ 2 MG/ML 2 ML VIAL IV PRN ×2 (01:58→22:34)
[2023-04-13] MEDS: TUBE FEEDING WATER FLUSH PEG SCH ×6 (03:31→23:52)
[2023-04-13] MEDS: LACTATED RINGER'S 1,000 ML IV SCH ×2 (03:31→18:17)
[2023-04-13] MEDS: PIPERACILLIN/TAZOBACTAM 4.5 GM in DEXTROSE 5% MINI-B 100 ML IV SCH ×3 (05:28→20:56)
[2023-04-13] MEDS: methylPREDNISolone 40 MG in SYRINGE 0 ML IV SCH (08:01)
[2023-04-13] MEDS: UMECLIDINIUM/VILANTEROL 62.5/25MCG 7 PUFFS/INHALER INH SCH (08:02)
[2023-04-13] MEDS: MULTI VIT W/MINERALS LIQUID 15 ML UDC PO SCH (08:02)
[2023-04-13] MEDS: HEPARIN SOD 5,000 UNIT/0.5 ML VIAL SQ SCH ×2 (08:02→20:54)
[2023-04-13] MEDS: ACETAMINOPHEN SUSP 325 MG/10.15 ML UDC PEG PRN ×2 (08:10→15:35)
[2023-04-13] MEDS ORDERED: diphenhydrAMINE 50 MG/ML VIAL IV STA (18:35)
[2023-04-13] MEDS ORDERED: PROCHLORPERAZINE 10 MG in SYRINGE 8 ML IV ONE (18:45)
--- NOTE | 2023-04-13 22:26 | Hospitalist Progress Note ---
Date of Service April 13, 2023 Assessment & Plan (1) Acute respiratory failure with hypoxia: Plan: Multifactorial secondary to aspiration pneumonia as well as COPD with acute exacerbation. Please see below (2) Aspiration pneumonia: Plan: Just discharged within the last 2 to 3 days in the hospital. Will begin the patient back on Zosyn IV keep the patient strictly n.p.o. for now. Patient will need to be NPO at home, this was reiterated on 04/12. Will continue IV antibiotics arrange home oxygen Patient requires 2 liters at bedtime and 1 liter of nsala cannula on ambulation. (3) COPD exacerbation: Plan: Nebulizers, IV Zosyn as well as IV Solu-Medrol (4) Severe protein-calorie malnutrition: Plan: Patient does have significant dysphagia she does have a PEG tube in place. We have consulted dietary for tube feed recommendations in the a.m. BMI is 15.2 weighing 40.1 kg (5) Dysphagia: Plan: As above Admission and Anticipated Discharge Date Admission Date: April 10, 2023 Subjective Patient reports no new symptoms. Review of Systems Review of Systems: All systems reviewed & are unremarkable except as noted in HPI & below Physical Exam Physical Exam: Resting comfortably. HEART: Regular rate and rhythm LUNGS: rhonchi right lower lobe worse than left ABDOMEN: Soft nontender, no rebound, no peritoneal signs, positive bowel sounds, no appreciable organomegaly. PEG tube noted. Surrounding site is intact clean and dry with no surrounding erythema Results & Data Results & Data Vital Signs (Past 12 Hours) Vital Signs Temp Pulse Pulse Pulse Pulse Resp Resp 04/13/23 20:00 04/13/23 19:15 36.7 C 63 18 04/13/23 16:23 04/13/23 15:11 36.5 C 78 17 04/13/23 11:58 97 H 97 H 90 15 04/13/23 10:38 36.5 C 57 L 17 Resp Resp BP BP Pulse Ox Pulse Ox Pulse Ox 04/13/23 20:00 04/13/23 19:15 125/81 94 04/13/23 16:23 04/13/23 15:11 111/72 94 04/13/23 11:58 16 13 91 87 L 04/13/23 10:38 103/60 95 Pulse Ox O2 Del Method O2 Flow Rate 04/13/23 20:00 Room Air 04/13/23 19:15 Room Air 04/13/23 16:23 Room Air 04/13/23 15:11 Room Air 04/13/23 11:58 93 1 04/13/23 10:38 Room Air PG Care Time/CCT Total # of Minutes Spent Total Time Spent with Patient: Total time spent is greater than 50% in coordination of care (as documented) at patient's floor/unit and/or counseling patient: Coding Level of Care Code 55036 SUB INP/OBS CARE 2/35MIN Diagnoses Acute respiratory failure with hypoxia J96.01 Aspiration pneumonia J69.0 COPD exacerbation J44.1 Severe protein-calorie malnutrition E43 Dysphagia R13.10
[2023-04-14] MEDS: TUBE FEEDING WATER FLUSH PEG SCH ×3 (03:30→13:54)
[2023-04-14] MEDS: PIPERACILLIN/TAZOBACTAM 4.5 GM in DEXTROSE 5% MINI-B 100 ML IV SCH ×2 (06:08→12:26)
[2023-04-14] MEDS: MULTI VIT W/MINERALS LIQUID 15 ML UDC PO SCH (08:41)
[2023-04-14] MEDS: HEPARIN SOD 5,000 UNIT/0.5 ML VIAL SQ SCH (08:41)
[2023-04-14] MEDS: UMECLIDINIUM/VILANTEROL 62.5/25MCG 7 PUFFS/INHALER INH SCH (08:41)
[2023-04-14] MEDS: ACETAMINOPHEN SUSP 325 MG/10.15 ML UDC PEG PRN (09:15)
--- NOTE | 2023-04-14 12:31 | Discharge Summary ---
Date of Service April 14, 2023 Admission HPI Per Admitting Provider 47-year-old female with a significant history of advancing COPD and history of dysphagia with significant aspiration just discharged from the hospital within the last 2 to 3 days. She developed a headache at home and increasing shortness of breath was brought to the ER for further evaluation and treatment. In the emergency department she had a noncontrast CT of the head which was negative for acute finding. In addition she had a CTA of the chest which demonstrated ongoing consolidation of the right lung base possibly mildly improved compared to March 19. There was no evidence of pulmonary embolism. In the emergency department her sats decompensated down into the 70s she was placed on an Oxymizer as she could not maintain her sats that were still in the 80s therefore she was placed on BiPAP. In the emergency department she received 125 mg of Solu-Medrol DuoNeb treatment half a milligram of Ativan and a gram of Tylenol IV We have ordered IV Zosyn. Will keep the patient strict NPO. Will attempt to get wean her off BiPAP overnight to an Oxymizer. Consult dietary in the morning for tube feeding recommendations. Discharge Data Allergies Allergy/AdvReac Type Severity Reaction Status Date / Time No Known Allergies Allergy Verified 03/30/23 10:21 Consultations 04/10/23 00:39 ED Decision to Admit Stat Ordered Studies 04/09/23 21:24 CT head/brain wo con Stat 04/09/23 21:27 CT angio chest PE protocol Stat Hospital Course (1) Acute respiratory failure with hypoxia: Multifactorial secondary to aspiration pneumonia as well as COPD with acute exacerbation. Please see below (2) Aspiration pneumonia: Just discharged within the last 2 to 3 days in the hospital. Will begin the patient back on Zosyn IV keep the patient strictly n.p.o. for now. Patient will need to be NPO at home, this was reiterated on 04/12. Will continue IV antibiotics arrange home oxygen Patient requires 2 liters at bedtime and 1 liter of nsala cannula on ambulation. (3) COPD exacerbation: Nebulizers, IV Zosyn as well as IV Solu-Medrol (4) Severe protein-calorie malnutrition: Patient does have significant dysphagia she does have a PEG tube in place. We have consulted dietary for tube feed recommendations in the a.m. BMI is 15.2 weighing 40.1 kg (5) Dysphagia: As above Discharge Plan Discharge Items Patient Disposition: Home - Home Health Services Reason For Visit: ASHER, SOB, ASP PNA Discharge Diagnosis: Asp. pneumonia Activity: Resume your previous activity Non-emergency contact: Primary Care Provider Call non-emergency contact if: you have any medication questions Follow-up/Referrals: Deonte Cortés, [Primary Care Provider] - Diet: Nothing by Mouth Diet Comment: continue previous PEG tube feeds Addtl Attending Provider Instructions: Nothing by mouth. Recommend close followup with PCP in 1-2 weeks. Pending Studies at Discharge: No Stand-Alone Forms: My [facility] [employer], Smoking Cessation Medications and DC Order Prescriptions: New Phospha 250 Neutral 250 mg Tablet 1 tab PEG QID Qty: 20 0RF Continued albuterol sulfate 90 mcg/actuation HFA aerosol inhaler 2 puff Inhalation QID PRN (Reason: Shortness Of Breath) Qty: 18 3RF Anoro Ellipta 62.5-25 mcg/actuation blister with device 1 inh inhalation DAILY Qty: 60 8RF Fibersource HN 0.05 gram- 1.2 kcal/mL Liquid 1 ea G-tube DAILY@1800 Qty: 6000 0RF Rx Instructions: fibersource 90ml/hr for 12 hours a day water 50 ml before and after, 120 tid during day Discharge Orders: Discharge Order (Routine); Ordered 04/14/23 Ordered By: Av Pringle Admission Data Admit Date/Time: 04/10/23 01:14 Attending Provider: Av Pringle Admit Provider: Braydon Rivera Primary Care Provider: Deonte Cortés Other Providers: Braydon Rivera; [facility]; Markell,Melissax Coding Diagnoses Acute respiratory failure with hypoxia J96.01 Aspiration pneumonia J69.0 COPD exacerbation J44.1 Severe protein-calorie malnutrition E43 Dysphagia R13.10
[2023-04-14] MEDS ORDERED: AMOXICILLIN/CLAVULANATE SUSP 400/57 MG 5 ML BTL PO ONE (12:45)
[2023-04-14] MEDS ORDERED: POT PHOSPHATE MONOBASIC W/ SOD TAB PEG SCH (13:00)
== END 2023-04-14 14:22 | disposition home health service (06) | DRG 177 ==
LOC: ED 19:23 → SUATTDRO 04-10 01:14 → 2E 04-10 01:14

== ENCOUNTER 2024-03-12 09:18 | Inpatient (IN) ==
--- NOTE | 2024-03-12 09:52 | XRay Report ---
XR chest 1V portable HISTORY: 48 years-old Female Dyspnea acute shortness of breath COMPARISON: CTA chest 04/09/2023 TECHNIQUE: AP view of the chest FINDINGS: Cardiomediastinal and hilar silhouettes are unchanged. Mild hyperinflation. There is no opacity of th e medial right lung base with associated volume loss. No pneumothorax or large pleural effusion. IMPRESSION: Findings suggestive of right middle lobe collapse. ACT 112: Negative or not required by law. The above report was generated using voice recognition software. It may contain grammatical, syntax o r spelling errors. Electronically signed by: Ryland Warner M.D. 03/12/2024 9:51 AM
[2024-03-12 10:08] LABS: Basophils # (auto) 0.07 K/uL (0.00-0.20); Basophils % (auto) 0.4 %; Eosinophils # (auto) 0.05 K/uL (0.00-0.50); Eosinophils % (auto) 0.3 %; Hematocrit (blood only) 42.5 % (37.0-47.0); Hemoglobin 13.7 g/dl (12.0-16.0); Immature Granulocytes # (auto) 0.06 K/uL (0.01-0.20); Immature Granulocytes % (auto) 0.4 %; Lymphocytes # (auto) 1.17 K/uL (1.20-3.40); Lymphocytes % (auto) 7.3 %; Mean Corpuscular Hemoglobin 29.1 pg (25.0-34.0); Mean Corpuscular Hgb Conc 32.2 g/dL (32.0-36.0); Mean Corpuscular Volume 90.4 fL (80.0-100.0); Mean Platelet Volume 10.7 fL (9.4-12.4); Monocytes # (auto) 1.27 K/uL (0.11-0.59); Monocytes % (auto) 7.9 %; Neutrophils # (auto) 13.51 K/uL (1.40-6.50); Neutrophils % (auto) 83.7 %; Platelet Count 275 K/uL (130-400); RDW Coefficient of Variation 13.1 % (11.5-14.5); RDW Standard Deviation 43.6 fL (36.4-46.3); White Blood Count 16.13 K/ul (4.8-10.8)
--- NOTE | 2024-03-12 10:09 | Emergency Department Note ---
Impression & Plan Sepsis, Acute hypoxemic respiratory failure, Tachycardia, Leukocytosis, Acute dyspnea, Rhinovirus infection, Enterovirus infection ED Provider Note HISTORY OF PRESENT ILLNESS: Patient is a 48-year-old female presenting with shortness of breath. Patient reports she started feeling generally unwell about 2 days ago. She states that she wears oxygen as needed at home, most notably with moving. States she has been using her oxygen more frequently in the last 2 days. Reports that today she woke up and was significantly short of breath. Denies any chest pain. She does report some sharp pain just underneath her left breast. Denies any worsening of that pain when she takes a deep breath. Denies any DVT or PE history. She is not on any anticoagulation or antiplatelet therapy. Her family member has recently been sick with similar symptoms. Patient denies any fevers at home. Denies any abdominal pain. She is tube fed and finished the tube feed that started at 6 PM last night and runs for 12 hours and finished at 6 AM. She currently is complaining of some nausea. ROS: as above PHYSICAL EXAM: Constitutional: Patient appears in no acute distress. HENT: Head: Normocephalic and atraumatic. Eyes: EOMI, PERRL Mouth/Throat: Mucous membranes moist. Neck: Trachea midline. Neck supple. Cardiovascular: Tachycardic with regular rhythm. No murmurs, rubs or gallops. Intact distal pulses. Pulmonary/Chest: No respiratory distress. Breath sounds clear and equal bilaterally. Coarse breath sounds bilaterally. Patient is on 2 L nasal cannula. Conversationally dyspneic. Abdominal: Abdomen soft, no tenderness, rebound or guarding. PEG tube in place. Musculoskeletal: No edema, tenderness or deformity noted. Skin: Warm and dry. No rash, erythema, pallor or cyanosis Psychiatric: Appropriate mood and affect for situation. Neurological: Alert and keenly responsive. CN II-XII grossly intact, moving all extremities equally and fully. MDM: - Vitals signs showed tachycardia and hypoxia - History obtained via patient. History as above. - Chronic conditions affecting care: LBBB; anxiety/depression; COPD; on enteral feeds - Differential diagnoses include, but are not limited to: Congestive heart failure; acute coronary syndrome; COPD/asthma exacerbation; pulmonary edema; pulmonary embolism; pneumonia; pneumothorax; viral syndrome - Order placed for continuous cardiac monitoring. At this time, monitor showed rate of 112 bpm with normal sinus rhythm, per my interpretation. - External medical records reviewed. Primary care visit note dated 08/28/2023 was reviewed. Patient is on enteral feeds and gets repeat laboratory workup. - EKG interpreted by myself showed normal sinus rhythm. Rate tachycardic at 128 bpm. QT 298. Noted have a left bundle branch block, which has been noted on previous EKGs. - Laboratory workup interpreted by myself showed leukocytosis (WBC 16.13) with neutrophil predominance; normal PT/INR; stable electrolytes; transaminitis (AST 83; ALT 112); normal troponin; normal BNP - Viral respiratory panel positive for rhinovirus/enterovirus infection - VBG grossly normal - CXR negative for pneumonia, per my interpretation. Radiology notes right middle lobe collapse. - CT PE negative for PE. Noted to have findings suggestive of aspiration. Noted to have consolidation with collapse of the right middle and bilateral lower lobes. - Patient placed on 4L NC with improvement in her heart rate down into the low 100s and 1 teens. She is given 4 mg IV Zofran for her nausea. Given 1 g IV Tylenol, 2 g IV Rocephin and 500 mg PO azithromycin for antibiotic coverage. - Discussion was had with case sealer about patient's case and need for admission - Hospitalist consulted for admission - Patient admitted to [facility] for further evaluation and management. ASSESSMENT AND PLAN: Diagnosis: acute hypoxemic respiratory failure; rhinovirus infection; enterovirus infection; aspiration pneumonia; acute dyspnea Plan: admit Past Med/Surg History Problem List (Updated 03/12/24 @ 15:11 by Larisa Lee MD) Enterovirus infection (Acute) Rhinovirus infection (Acute) Acute dyspnea (Acute) Leukocytosis (Acute) Tachycardia (Acute) Acute hypoxemic respiratory failure (Acute) Sepsis (Acute) Restrictive airway disease Severe restrictive lung fx. PFT 07/2023. Pneumonia, aspiration Sacroiliitis Pulmonary nodule Hiatal hernia Duodenal ulcer [place] III (cervical intraepithelial neoplasia III) Allergic rhinitis On enteral nutrition Uses feeding tube Headache Achalasia Palliative care by specialist Advanced care planning/counseling discussion Dyspnea and respiratory abnormalities Weakness generalized Pneumonia (Acute) LBBB (left bundle branch block) Acute respiratory failure with hypoxia Iron deficiency anemia (Chronic) Uterine fibroid Chronic respiratory failure (Chronic) COPD (chronic obstructive pulmonary disease) Bronchiectasis Severe protein-calorie malnutrition Poor dentition (Chronic) Depression (Chronic) Anxiety (Chronic) Tobacco abuse (Chronic) Marijuana smoker (Chronic) Constipation (Chronic) Arthritis (Chronic) Scoliosis (Chronic) Medical History (Updated 03/12/24 @ 15:11 by Larisa Lee MD) Cocaine abuse Aspiration pneumonia COVID-19 Difficulty swallowing Difficulty chewing Surgical History (Updated 03/12/24 @ 13:15 by Jeanne Gamble MD) History of esophagogastroduodenoscopy (EGD) Family History Other Family history non-contributory Social History (Updated 06/16/23 @ 13:15 by Indy Roman LPN) Smoking Status: Current every day smoker Tobacco Type: Cigarettes Cigarettes Per Day: 1 PACK/DAY; Second Hand Exposure: Yes; Do You Dip or Chew Tobacco: No; Hx Alcohol Use: No Hx Substance Use: No Preferred Language: Nigerien Communication Ability: Impaired Visual Impairment: No Limitations 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 Required: No Beliefs That Will Affect Care: None marital status: Single Current Living Situation: Family How many Children do You have: 1 Feels Safe at Home: Yes Diet: other Diet Comment: npo caffeine: No Dental Care, Regularly: No Assistive Devices: Other Allergies Allergies Allergy/AdvReac Type Severity Reaction Status Date / Time No Known Allergies Allergy Verified 03/12/24 12:18 Home Meds Home Medications Medication Instructions Recorded Confirmed multivitamin 1 tab PO DAILY 03/12/24 03/12/24 Previous Rx's Medication Instructions Recorded nutrition egnn-foqnxm-ECK-fiber 1 ea G-tube DAILY@1800 #6,000 mL 04/06/23 0.05 gram-1.2 kcal/mL tube feed liquid (Fibersource HN) Rollator Walker #1 ea 04/28/23 Shower Chair #1 ea 04/28/23 albuterol sulfate 90 mcg/actuation 2 puff inhalation QID PRN 08/25/23 aerosol inhaler Shortness Of Breath #18 grams ipratropium 0.5 mg-albuterol 3 mg 3 ml inhalation Q8H PRN shortness 08/25/23 (2.5 mg base)/3 mL nebulization of breath or wheezing #180 mL soln nebulizers (Aeroneb Go Nebulizer) #1 ea 08/25/23 sodium chloride 7 % for 1 inh inhalation BID #240 mL 08/25/23 nebulization umeclidinium 62.5 mcg-vilanterol 1 inh inhalation DAILY #60 ea 08/25/23 25 mcg/actuation powdr for inhalation (Anoro Ellipta) Results & Data (ED) Vital Signs Vital Signs - 24 hr 03/12/24 09:21 03/12/24 09:21 03/12/24 09:41 Temperature 37.5 C Temperature Source Temporal Artery Scan Pulse Rate 146 H 128 H Pulse Rate [Apical] Pulse Rate from SpO2 Sensor Respiratory Rate 20 Respiratory Effort / Characteristics Non-Labored Spontaneous Respiratory Depth Normal Respiratory Pattern Regular Blood Pressure 115/71 Blood Pressure [Left Arm] Blood Pressure Mean 85 Blood Pressure Mean [Left Arm] Pulse Oximetry 84 L 84 L Oxygen Delivery Method Room Air Room Air Oxygen Flow Rate 2 Sepsis Recent Fever Within 48 Hours No Sepsis New/Unexplained Change in Mental Status N/A Sepsis Action Taken by Nursing No Action Required Oxygen Flow Rate - Titration 2 03/12/24 10:15 03/12/24 10:33 03/12/24 11:07 Temperature Temperature Source Pulse Rate 123 H 117 H Pulse Rate [Apical] Pulse Rate from SpO2 Sensor 124 H 118 H Respiratory Rate 20 24 Respiratory Effort / Characteristics Non-Labored Spontaneous Respiratory Depth Respiratory Pattern Blood Pressure 110/74 100/74 Blood Pressure [Left Arm] Blood Pressure Mean 86 82 Blood Pressure Mean [Left Arm] Pulse Oximetry 93 95 Oxygen Delivery Method Nasal Cannula Nasal Cannula Oxygen Flow Rate 4 4 Sepsis Recent Fever Within 48 Hours Sepsis New/Unexplained Change in Mental Status Sepsis Action Taken by Nursing Oxygen Flow Rate - Titration 03/12/24 12:15 03/12/24 12:16 03/12/24 13:00 Temperature Temperature Source Pulse Rate Pulse Rate [Apical] 110 H 103 H Pulse Rate from SpO2 Sensor Respiratory Rate 18 18 Respiratory Effort / Characteristics Respiratory Depth Respiratory Pattern Blood Pressure Blood Pressure [Left Arm] 96/72 L 104/71 Blood Pressure Mean Blood Pressure Mean [Left Arm] 80 82 Pulse Oximetry 95 94 95 Oxygen Delivery Method Nasal Cannula Nasal Cannula Nasal Cannula Oxygen Flow Rate 4 4 4 Sepsis Recent Fever Within 48 Hours Sepsis New/Unexplained Change in Mental Status Sepsis Action Taken by Nursing Oxygen Flow Rate - Titration 03/12/24 13:31 03/12/24 14:00 Temperature Temperature Source Pulse Rate 99 H Pulse Rate [Apical] 108 H Pulse Rate from SpO2 Sensor Respiratory Rate 18 Respiratory Effort / Characteristics Respiratory Depth Respiratory Pattern Blood Pressure Blood Pressure [Left Arm] 98/67 L Blood Pressure Mean Blood Pressure Mean [Left Arm] 77 Pulse Oximetry 95 Oxygen Delivery Method Oxygen Flow Rate Sepsis Recent Fever Within 48 Hours Sepsis New/Unexplained Change in Mental Status Sepsis Action Taken by Nursing Oxygen Flow Rate - Titration Laboratory Data 03/12/24 09:45 03/12/24 09:45 Lab Results 03/12/24 03/12/24 Range/Units 09:45 10:24 WBC 16.13 H (4.8-10.8) K/ul RBC 4.70 (4.20-5.40) M/uL Hgb 13.7 (12.0-16.0) g/dl Hct 42.5 (37.0-47.0) % MCV 90.4 (80.0-100.0) fL MCH 29.1 (25.0-34.0) pg MCHC 32.2 (32.0-36.0) g/dL RDW Std Deviation 43.6 (36.4-46.3) fL RDW Coeff of Abhishek 13.1 (11.5-14.5) % Plt Count 275 (130-400) K/uL MPV 10.7 (9.4-12.4) fL Immature Gran % (Auto) 0.4 % Neut % (Auto) 83.7 % Lymph % (Auto) 7.3 % [place] % (Auto) 7.9 % Eos % (Auto) 0.3 % Baso % (Auto) 0.4 % Neut # (Auto) 13.51 H (1.40-6.50) K/uL Lymph # (Auto) 1.17 L (1.20-3.40) K/uL [place] # (Auto) 1.27 H (0.11-0.59) K/uL Eos # (Auto) 0.05 (0.00-0.50) K/uL Baso # (Auto) 0.07 (0.00-0.20) K/uL Immature Gran # (Auto) 0.06 (0.01-0.20) K/uL PT 10.9 (9.0-12.0) Seconds INR 1.0 (0.9-1.1) VBG pH 7.44 H (7.36-7.41) VBG pCO2 47 (38-50) mmHg VBG pO2 53 mmHg VBG HCO3 32 mmol/L VBG O2 Saturation 86.3 % VBG Base Excess 6.6 mEq/L Sodium 139 (136-145) mmol/L Potassium 3.7 (3.5-5.1) mmol/L Chloride 101 (98-107) mmol/L Carbon Dioxide 29 (21-32) mmol/L Anion Gap 9 (3-11) BUN 12 (6-23) mg/dl Creatinine 0.40 L (0.6-1.2) mg/dl Est Cr Clr Drug Dosing 124.4 ml/min eGFR 122.01 BUN/Creatinine Ratio 30.0 H (10-20) Glucose 130 H (70-99(Fasting)) mg/dl Calcium 10.3 (8.6-10.3) mg/dl Magnesium 1.9 (1.7-2.4) mg/dl Total Bilirubin 0.5 (0.2-1.0) mg/dl AST 83 H (13-39) U/L ALT 112 H (7-52) U/L Alkaline Phosphatase 228 H (34-104) U/L Troponin I High Sens 5.9 (0-14) pg/ml B-Natriuretic Peptide 74 (0-100) pg/ml Total Protein 7.6 (6.0-8.3) gm/dl Albumin 3.9 (3.4-5.0) gm/dl Globulin 3.7 (2.5-4.0) gm/dl Albumin/Globulin Ratio 1.1 (0.9-2) Adenovirus (PCR) Not Detected (NotDetected) B. pertussis DNA (PCR) Not Detected (NotDetected) B.parapertussis DNA PCR Not Detected (NotDetected) C. pneumoniae DNA (PCR) Not Detected (NotDetected) Coronavirus OC43 (PCR) Not Detected (NotDetected) Coronavirus HKU1 (PCR) Not Detected (NotDetected) Coronavirus 229E (PCR) Not Detected (NotDetected) SARS-CoV-2 (PCR) Not Detected (NotDetected) Coronavirus NL63 (PCR) Not Detected (NotDetected) Human Metapneumovir PCR Not Detected (NotDetected) Influenza Type A (PCR) Not Detected (NotDetected) Influenza Type B (PCR) Not Detected (NotDetected) M. pneumoniae (PCR) Not Detected (NotDetected) Parainfluenza 1 (PCR) Not Detected (NotDetected) Parainfluenza 2 (PCR) Not Detected (NotDetected) Parainfluenza 3 (PCR) Not Detected (NotDetected) Parainfluenza 4 (PCR) Not Detected (NotDetected) RSV (PCR) Not Detected (NotDetected) Entero/Rhino (PCR) DETECTED A (NotDetected) Administered Medications Discontinued Medications Azithromycin (Azithromycin 250 Mg Tab) 500 mg PO NOW ONE Stop: 03/12/24 11:34 Last Admin: 03/12/24 11:54 Dose: 500 mg Documented By: DASH Azithromycin (Azithromycin Susp 200 Mg/5 Ml) 500 mg GT NOW STA Stop: 03/12/24 13:31 Last Admin: 03/12/24 13:34 Dose: Not Given Documented By: DASH Acetaminophen (Ofirmev) 1,000 mg in 100 mls @ 400 mls/hr IV NOW STA Stop: 03/12/24 11:44 Last Infusion: 03/12/24 11:59 Dose: Infused Documented By: Admin: 03/12/24 11:40 Dose: 400 mls/hr Documented By: DASH Ceftriaxone Sodium (Rocephin) 2,000 mg in 50 mls @ 100 mls/hr IV NOW STA Stop: 03/12/24 12:02 Last Infusion: 03/12/24 12:12 Dose: Infused Documented By: Admin: 03/12/24 11:41 Dose: 100 mls/hr Documented By: DASH Ioversol (Optiray 320 125ml) 112 ml IV ONCE ONE Stop: 03/12/24 11:11 Last Admin: 03/12/24 11:11 Dose: 112 ml Documented By: JOHN PAUL Ketorolac Tromethamine (Ketorolac Tromethamine 15 Mg/Ml Vial) 15 mg IV NOW ONE Stop: 03/12/24 14:20 Last Admin: 03/12/24 15:06 Dose: 15 mg Documented By: DASH Ondansetron HCl (Ondansetron Inj 2 Mg/Ml 2 Ml Vial) 4 mg IV NOW STA Stop: 03/12/24 10:05 Last Admin: 03/12/24 10:13 Dose: 4 mg Documented By: DENIA Ondansetron HCl (Ondansetron Inj 2 Mg/Ml 2 Ml Vial) 4 mg IV NOW STA Stop: 03/12/24 14:20 Last Admin: 03/12/24 15:06 Dose: 4 mg Documented By: DASH Imaging Data Radiologist's Impression: Chest CTA 03/12/24 09:29 CT angio chest PE protocol CT DOSE: 372.54 mGy.cm HISTORY: 48 years-old Female with Dyspnea; tachy; hypoxic; r/o PE. Acute cough TECHNIQUE: Multiple CTA images of the chest were obtained after the intravenous administration of 112 ml Optiray. Coronal and sagittal MIPS were obtained from the axial data set and were submitted for review. All measurements were obtained according to NASCET criteria. A dose lowering technique was utilized adhering to the principles of ALARA. COMPARISON: Chest radiograph of same day, CT chest 04/09/2023 FINDINGS: CTA: Heart is mildly enlarged. No pericardial effusion. Pectus excavatum. Unremarkable thoracic aorta. No pulmonary emboli identified. CT CHEST: No dominant thyroid nodule. There is soft tissue within the anterior mediastinum which has progressed from prior, possibly thymic rebound. Dilated debris-filled esophagus with mild esophageal wall thickening. Secretions within the airway with prominent bibasilar mucous plugging. There is atelectasis with consolidation and complete collapse of the bilateral lower and right middle lobes. Mild tree-in-bud nodules of the upper lobes. 5 mm groundglass nodule within the apical segment right upper lobe is unchanged. No acute upper abdominal abnormality. Unremarkable soft tissues. No acute fracture. IMPRESSION: 1. No pulmonary emboli identified. 2. There is patulous dilation of the debris-filled esophagus along with tracheo- bronchial secretions and bibasilar mucous plugging suggestive of aspiration. 3. There is consolidation with collapse of the right middle and bilateral lower lobes. Left lower lobe collapse was seen on the 04/09/2023 study. 4. Findings suggestive of thymic rebound. ACT 112: Negative or not required by law. The above report was generated using voice recognition software. It may contain grammatical, syntax or spelling errors. Electronically signed by: Ryland Warner M.D. 03/12/2024 11:33 AM Chest X-Ray 03/12/24 09:29 XR chest 1V portable HISTORY: 48 years-old Female Dyspnea acute shortness of breath COMPARISON: CTA chest 04/09/2023 TECHNIQUE: AP view of the chest FINDINGS: Cardiomediastinal and hilar silhouettes are unchanged. Mild hyperinflation. There is no opacity of the medial right lung base with associated volume loss. No pneumothorax or large pleural effusion. IMPRESSION: Findings suggestive of right middle lobe collapse. ACT 112: Negative or not required by law. The above report was generated using voice recognition software. It may contain grammatical, syntax or spelling errors. Electronically signed by: Ryland Warner M.D. 03/12/2024 9:51 AM Discharge Plan Visit Data Chief Complaint: Shortness of Breath/Dyspnea Stated Complaint: COUGH, SOB, CHEST PAIN, COPD ED Provider: Larisa Lee Discharge Problem: Sepsis, Acute hypoxemic respiratory failure, Tachycardia, Leukocytosis, Acute dyspnea, Rhinovirus infection, Enterovirus infection Forms Stand Alone Forms: [facility] Prescriptions Prescriptions: No Action (DME) Rollator Walker See Rx Instructions .Route .MEDSUPPLY Qty: 1 0RF Rx Instructions: Use to aid in ambulation (DME) Shower Chair [facility] [place] [facility] See Rx Instructions .Route Qty: 1 0RF Rx Instructions: Use to aid in safety during bathing albuterol sulfate 90 mcg/actuation HFA aerosol inhaler 2 puff Inhalation QID PRN (Reason: Shortness Of Breath) Qty: 18 3RF Rx Instructions: Per patient, she needs more of this. Is out. Anoro Ellipta 62.5-25 mcg/actuation blister with device 1 inh inhalation DAILY Qty: 60 12RF Rx Instructions: Per patient, she needs more of this. Is out. ipratropium-albuterol 0.5 mg-3 mg(2.5 mg base)/3 mL solution for nebulization 3 ml inhalation Q8H PRN (Reason: shortness of breath or wheezing) Qty: 180 3RF Rx Instructions: Per patient, she needs more of this. Is out. (DME) nebulizers [Aeroneb Go Nebulizer] [facility] [place] See Rx Instructions .MEDSUPPLY Qty: 1 0RF Rx Instructions: With tubing and supplies. J44.9. J45.9. sodium chloride 7 % solution for nebulization 1 inh inhalation BID Qty: 240 3RF Rx Instructions: Per patient, she needs more of this. Is out. Fibersource HN 0.05 gram- 1.2 kcal/mL Liquid 1 ea G-tube DAILY@1800 Qty: 6000 0RF Rx Instructions: fibersource 90ml/hr for 12 hours a day water 50 ml before and after, 120 tid during day multivitamin [One A Day] Tablet 1 tab PO DAILY Referrals Referrals: Deonte Cortés, [Primary Care Provider] -
[2024-03-12] MEDS: ONDANSETRON INJ 2 MG/ML 2 ML VIAL IV STA ×2 (10:13→15:06)
[2024-03-12 10:20] LABS: Albumin Globulin Ratio 1.1 (0.9-2); Albumin Level 3.9 gm/dl (3.4-5.0); Bilirubin,Total 0.5 mg/dl (0.2-1.0); Calcium 10.3 mg/dl (8.6-10.3); Creatinine Clr Calc Pharmacy 124.4 ml/min; Globulin 3.7 gm/dl (2.5-4.0); Magnesium 1.9 mg/dl (1.7-2.4); Potassium 3.7 mmol/L (3.5-5.1); Total Protein 7.6 gm/dl (6.0-8.3)
[2024-03-12 10:26] LABS: Troponin I High Sensitivity 5.9 pg/ml (0-14)
[2024-03-12 10:29] LABS: Prothrombin Time 10.9 Seconds (9.0-12.0)
[2024-03-12 10:31] LABS: Base Excess VBG 6.6 mEq/L; HCO3 VBG 32 mmol/L; Oxygen Saturation VBG 86.3 %; PCO2 VBG 47 mmHg (38-50); PO2 VBG 53 mmHg; pH VBG 7.44 (7.36-7.41)
[2024-03-12 10:57] LABS: Adenovirus PCR Not Detected (NotDetected); Bordetella parapertussis PCR Not Detected (NotDetected); Bordetella pertussis PCR Not Detected (NotDetected); Chlamydia pneumoniae PCR Not Detected (NotDetected); Coronavirus 229E PCR Not Detected (NotDetected); Coronavirus CoV-2 (COVID19)PCR Not Detected (NotDetected); Coronavirus HKU1 PCR Not Detected (NotDetected); Coronavirus NL63 PCR Not Detected (NotDetected); Coronavirus OC43PCR Not Detected (NotDetected); Human Metapneumovirus PCR Not Detected (NotDetected); Influenza A PCR Not Detected (NotDetected); Influenza B PCR Not Detected (NotDetected); Mycoplasma pneumoniae PCR Not Detected (NotDetected); Parainfluenza Virus 1 PCR Not Detected (NotDetected); Parainfluenza Virus 2 PCR Not Detected (NotDetected); Parainfluenza Virus 3 PCR Not Detected (NotDetected); Parainfluenza Virus 4 PCR Not Detected (NotDetected); Respiratory Syncytial VirusPCR Not Detected (NotDetected); Rhinovirus/Enterovirus PCR DETECTED (NotDetected)
[2024-03-12] MEDS: OPTIRAY 320 125ml IV ONE (11:11)
--- NOTE | 2024-03-12 11:35 | CT Scan Report ---
CT angio chest PE protocol CT DOSE: 372.54 mGy.cm HISTORY: 48 years-old Female with Dyspnea; tachy; hypoxic; r/o PE. Acute cough TECHNIQUE: Multiple CTA images of the chest were obtained after the intravenous administration of 112 ml Optiray. Coronal and sagittal MIPS were obtained from the axial data set and were submitted for review. All measurements were obtained according to NASCET criteria. A dose lowering technique was u tilized adhering to the principles of ALARA. COMPARISON: Chest radiograph of same day, CT chest 04/09/2023 FINDINGS: CTA: Heart is mildly enlarged. No pericardial effusion. Pectus excavatum. Unremarkable thoracic aorta. No pulmonary emboli identified. CT CHEST: No dominant thyroid nodule. There is soft tissue within the anterior mediastinum which has progressed from prior, possibly thymic rebound. Dilated debris-filled esophagus with mild esophageal wall thick ening. Secretions within the airway with prominent bibasilar mucous plugging. There is atelectasis wi th consolidation and complete collapse of the bilateral lower and right middle lobes. Mild tree-in-bu d nodules of the upper lobes. 5 mm groundglass nodule within the apical segment right upper lobe is u nchanged. No acute upper abdominal abnormality. Unremarkable soft tissues. No acute fracture. IMPRESSION: 1. No pulmonary emboli identified. 2. There is patulous dilation of the debris-filled esophagus along with tracheo-bronchial secretions and bibasilar mucous plugging suggestive of aspiration. 3. There is consolidation with collapse of the right middle and bilateral lower lobes. Left lower lob e collapse was seen on the 04/09/2023 study. 4. Findings suggestive of thymic rebound. ACT 112: Negative or not required by law. The above report was generated using voice recognition software. It may contain grammatical, syntax o r spelling errors. Electronically signed by: Ryland Warner M.D. 03/12/2024 11:33 AM
[2024-03-12] MEDS: ACETAMINOPHEN 1,000 MG/100 ML VIAL IV STA (11:40)
--- OUTSIDE RECORDS SUMMARY | 2024-03-12 11:40 | External Medical Summary | Summary of Care ---
Author Name Unknown Organization [facility] Address [address] [place] [address] Phone [phone] Care Team Providers Care All Source Intelligence Technician Name Role Phone Loyd Alicea MD Primary Care Provi jeremy Encounter Details Date Type Department Care Team (Late st Contact Info) Description 01/18/2024 Population Health External Data Unspecified Department Allergies No known active allergiesdocumented as of this encounter (statuses as of 01/18/2024) Medications Medication Sig Dispensed Refills Start Date End Date Status fluticasone furoate-vilanterol (BREO ELLIPTA) 100-25 MCG/INH AEPB Inhale 1 Puff by mouth. Active Albuterol Sulfate (PROAIR HFA) 108 (90 Base) MCG/ACT AERS Inhale by mouth. As needed Active documented as of this encounter (statuses as of 01/18/2024) Active Problems Problem Noted Date Diagnosed Date Achalasia 08/04/2019 Lumbago 08/14/2014 Knee pain 08/14/2014 Depression 08/14/2014 Weight loss 08/14/2014 Overview: Poor appetite documented as of this encounter (statuses as of 01/18/2024) Resolved Problems Problem Noted Date Diagnosed Date Resolved Date (+) TRIPLE SCREEN 03/25/2002 04/13/2002 Encounter for supervision of other normal 10/07/2001 04/13/2002 Overview: ICD-10 update of inactive term documented as of this encounter (statuses as of 01/18/2024) Immunizations Name Administration Dates Next Due Seasonal Influenza, PF, 6 M & above, IM , (FluLaval or Fluzone) 02/08/2020 documented as of this encounter Social History Tobacco Use Types Packs/Day Years Used Date Smoking Tobacco: Former Cigarettes 0.5 26 1 05/1992 - 03/2019 Smokeless Tobacco: Never Alcohol Use Standard Drinks/Week Comments No 0 (1 standard drink = 0.6 oz pur e alcohol) PHQ-2 Answer Date Recorded PHQ Adult Total Score 0 04/09/2023 Hunger Vital Sign Answer Date Recorded Within the past 12 months, y ou worried that your food would run out before you got the money to buy more. Never true 04/09/20 23 Within the past 12 months, t he food you bought just didn't last and you didn't have money to get more. Never true 04/09/2023 Childcare Answer Date Recorded Do you feel overwhelmed with taking care of a child, family member or friend? No 04/09/2023 Does your family need help f inding childcare? (Household - for ages 0-17 years) Not on file 04/09/2023 Clothing Answer Date Recorded Have you been unable to get clothing when it was really needed? No 04/09/2023 Is your family able to get c lothes or diapers when needed? (Household - for ages 0-17 years) Not on file 04/09/2023 Personal Safety Answer Date Recorded Do you feel unsafe or have concerns for your saf ety? No 04/09/2023 Do you have concerns for you r family's safety? (Household - for ages 0-17 years) Not on file 04/09/2023 Utilities Answer Date Recorded Do you have trouble paying y our heating, water, or electric bill? No 04/09/2023 Is your family able to pay t he heat, water, or electric bill? (Household - for ages 0-17 years) Not on file 04/09/2023 Does your family have access to good internet? (Household - for ages 0-17 years) Not on file 04/09/2023 Employment Status Answer Date Recorded Are you unemployed or without regular income? No 04/09/2023 Does the household have a re gular source of income? (Household - for ages 0-17 years) Not on file 04/09/2023 Social Connections Answer Date Recorded How often do you feel lonely or isolated from th ose around you? Never 04/09/2023 Financial Resource Strain Answer Date R ecorded Do you have any trouble payi ng for your medications, or do you think you might in the future? No 04/09/2023 Does your family have troubl e paying for medicine? (Household - for ages 0-17 years) Not on file 04/09/2023 Transportation Needs Answer Date Record ed READ ONLY Do you have troubl e getting a ride to medical visits or work? Never True 04/09/2023 Does your family have a hard time getting a ride to doctors visits? (Household - for ages 0-17 years) Not on file 04/09/2023 Has lack of transportation k ept you from medical appointments, meetings, work, or from getting things needed for daily living? Check all that apply. (Adult - for ages 18 years and over) Not on file 04/09/2023 Do you (or your family) have trouble finding or paying for a ride (transportation)? (Household - for ages 0-17 years) Not on file 04/09/2023 Housing Stability Answer Date Recorded Do you currently live in a s helter or have no steady place to sleep at night? No 04/09/2023 READ ONLY Do you think you a re at risk of becoming homeless? No 04/09/2023 Does your family worry about paying for your home or becoming homeless? (Household - for ages 0-17 years) Not on file 1 06/10/2022 Are you homeless or worried that you might be in the future? (Adult - for ages 18 years and over) Not on file Are you (or your family) kiersten eless or worried that you might be in the future? (Household - for ages 0-17 years) Not on file Food Insecurity Answer Date Recorded Do you need food for this week? No 04/09/2023 Are you able to get enough f ood for your family? (Household - for ages 0-17 years) Not on file 04/09/2023 Does your family need food t his week? (Household - for ages 0-17 years) Not on file 04/09/2023 Do you always have enough fo od for your family? (Household - for ages 0-17 years) Not on file 04/09/2023 Sex and Gender Information Value Date Recorded Sex Assigned at Not on file Gender Identity Not on file Sexual Orientation Not on file documented as of this encounter Functional Status Functional Status Response Date of Assess ment Are you deaf or do you have serious difficulty h earing? No 07/13/2019 Are you blind or do you have serious difficulty seeing, even when wearing glasses? No 07/13/2019 Do you have serious difficul ty walking or climbing stairs? (5 years old or older) No 07/13/2019 Do you have difficulty dress ing or bathing? (5 years old or older) No 07/13/2019 Because of a physical, menta l, or emotional condition, do you have difficulty doing errands alone such as visiting a doctor s office or shopping? (15 years old or older) No 07/13/19 20 Cognitive Status Response Date of Assessm ent Because of a physical, menta l, or emotional condition, do you have serious difficulty concentrating, remembering, or making decisions? (5 years old or older) Yes 07/13/2019 documented as of this encounter Plan of Treatment Health Maintenance Due Date Last Done Comments Lipid Panel 1975 Pneumococcal Vaccine: Pediatrics (0 to 5 Years) and At-Risk Patients (6 to 64 Years) (1 of 2 - PCV) 08/28/1981 Hepatitis C Screening 08/28/1993 DTap/Tdap Vaccines (1 - Tdap) 08/28/1994 Hepatitis B Vaccine (1 of 3 - 19+ 3-dose series) 08/28/1994 HPV/Co-Test 08/28/2005 Cervical Cancer Screening 05/29/2007 Pap Smear 05/29/2007 05/29/2004, 10/2003, 05/27/2002, Additional history exists Mammogram 2015 Cologuard 08/28/2020 Colonoscopy 08/28/2020 Colorectal Cancer Screening 08/28/2020 Fecal Occult Blood Test 08/28/2020 Sigmoidoscopy 08/28/2020 COVID-19 Vaccine ( season) 2023 Influenza Vaccine (FLU shot) (#1) 2023 03/19/2023, 02/08/2020 Depression Monitoring 04/09/2024 04/09/2023 HPV (Gardasil) Vaccine Aged Out No lo nger eligible based on patient's age to complete this topic MENINGOCOCCAL (MENACTRA/MENVEO) Aged Out No longer eligible based on patient's age to complete this topic documented as of this encounter Medical Devices Implanted Type Area Splunk Dashboard Developer Device Identifier Shelf Expiration Date Model / Serial / Lot Alok - [id number] Implanted:Qty: 1 on 07/13/2019 by Howie Ferrell [place] [facility] [place] [employer] [id number] / / documented as of this encounter Advance Directives * Full Code (Latest Code Status on File) Date Activated Date Inactivated Comments 07/13/2019 10:07 AM 07/14/2019 8:39 PM This order reflects the patients wishes and were consensually agreed upon. Question Answer Comments Discussion of Advance Directives occurred with: Patient Does the patient have a Living Will? No Does the patient have Health Care Power of Attor nelia? No * Full Code Date Activated Date Inactivated Comments 07/13/2019 7:11 AM 07/13/2019 10:07 AM This order reflects the patients wishes and were consensually agreed upon. Care Teams All Source Intelligence Technician Relationship Specialty Start Date End Date Loyd Alicea MD [address] [facility] [place] [id number] PCP - General Internal Medicine 02/14/22 documented as of this encounter
--- OUTSIDE RECORDS SUMMARY | 2024-03-12 11:40 | External Medical Summary | Summary of Care ---
Author Name Unknown Organization [facility] Address [address] [place] [address] Phone [phone] Care Team Providers Care Powder Room Attendant Name Role Phone Loyd Alicea MD Primary Care Provi jeremy Reason for Visit * Reason Onset Date Comments [facility]: Maintenance 01/22/2024 Encounter Details Date Type Department Care Team (Late st Contact Info) Description 01/22/2024 Telephone [facility], [facility] [address] [facility] [place] [address] Marnie Abrams, [facility] [address] [place] [facility] [place] [address] [facility]: Maintenance Allergies No known active allergiesdocumented as of this encounter (statuses as of 01/22/2024) Medications Medication Sig Dispensed Refills Start Date End Date Status fluticasone furoate-vilanterol (BREO ELLIPTA) 100-25 MCG/INH AEPB Inhale 1 Puff by mouth. Active Albuterol Sulfate (PROAIR HFA) 108 (90 Base) MCG/ACT AERS Inhale by mouth. As needed Active documented as of this encounter (statuses as of 01/22/2024) Active Problems Problem Noted Date Diagnosed Date Achalasia 08/04/2019 Lumbago 08/14/2014 Knee pain 08/14/2014 Depression 08/14/2014 Weight loss 08/14/2014 Overview: Poor appetite documented as of this encounter (statuses as of 01/22/2024) Resolved Problems Problem Noted Date Diagnosed Date Resolved Date (+) TRIPLE SCREEN 03/25/2002 04/13/2002 Encounter for supervision of other normal 10/07/2001 04/13/2002 Overview: ICD-10 update of inactive term documented as of this encounter (statuses as of 01/22/2024) Immunizations Name Administration Dates Next Due Seasonal [...] Yes 07/13/2019 documented as of this encounter Miscellaneous Notes * Telephone Encounter - Marnie Abrams LPN - 01/22/2024 1:56 PM EDT Loulou Pryor was referred as a potential candidate for enrollment for [facility]. A review of this chart was completed and: Loulou does not meet criteria for enrollment into [facility]. Referral Source: Monthly Proactive Eligibility List Criteria for Ineligibility: Not Located in Service Area Referring care team was notified via : [email or web address] communication Pt does reside in the [facility] service area but her utilization has been related to dx outside of those impacted by [facility]. documented in this encounter Plan of Treatment Health Maintenance [...] this encounter Medical Devices Implanted Type Area Dish Technician Device Identifier Shelf Expiration Date Model / Serial / Lot Duraclip - [id number] Implanted:Qty: 1 on 07/13/2019 [place] Ferrell [place] [facility] [place] [employer] [id number] / / documented as of this encounter [...] and were consensually agreed upon. Care Teams Powder Room Attendant Relationship Specialty Start Date End Date Alicea, Christopher Camron, MD [address] [facility] [place] [id number] PCP - General Internal Medicine 02/14/22 documented as of this encounter
[2024-03-12] MEDS: cefTRIAXone SODIUM 2,000 MG/50 ML BAG IV STA (11:41)
[2024-03-12] MEDS: AZITHROMYCIN 250 MG TAB PO ONE (11:54)
[2024-03-12] MEDS: AZITHROMYCIN SUSP 200 MG/5 ML GT STA (13:34)
[2024-03-12] MEDS ORDERED: POLYETHYLENE (MIRALAX) 17 GM PACK PO PRN (14:31)
[2024-03-12] MEDS: KETOROLAC TROMETHAMINE 15 MG/ML VIAL IV ONE (15:06)
--- NOTE | 2024-03-12 15:09 | History & Physical Report ---
Date of Service March 12, 2024 Assessment & Plan (1) Rhinovirus infection: (2) Pneumonia, aspiration: (3) Uses feeding tube: (4) Severe protein-calorie malnutrition: (5) COPD (chronic obstructive pulmonary disease): (6) Chronic respiratory failure: (7) Achalasia: (8) Headache: Plan 48 years old with P/M/H of COPD, aspiration Pneumonia, Achalasia, PEG tube in situ admitted for recurrent aspiration Pneumonia. # Aspiration PNA: -Recurrent episode, not in Sepsis RFs: Achalasia, increased secretion in oral cavity, likely secondary to rhino virus infection. -Inv WBC: 16.13 k, Neutrophil predominance Venous Blood analysis: WNL BioFire: Rhino Virus +ve Chest Xray: Right Middle lobe Consolidation CT Chest Angio: PE ruled out, Patulous dilatation of Oesophagus with Tracheobronchial secretion, Bilateral basilar mucous plugging Consolidation in Right Middle, Bilateral Lower lobes. Mgmt: Admission for IV antibiotics Received Ceftriaxone 2 gm IV STAT and Azithromycin 500 STAT at ED Upgrading to Zosyn 4.5 gm IV 8 hourly. O2 4L /min Via Nasal canula ; 84% at RA on arrival--- Improved on 4L Pulmonology consult for recurrent aspiration #Achalasia Under PEG tube for feedin PM to 6 AM feeds with supplied food. Persistent swallowing issue, NPO #Rhinovirus infection Symptoms: Increased secretion, headache. Nausea, Vomiting Received 4 mg IV Zofran at ED. Continue on admission. Toradol X headache; continue on admission. Flonase nasal spray added #COPD Chronic stable, under home O2 2-3 L on nighttime Continued O2 on admission at 4L/min Home medications continued #Protein calorie Malnutrition Chronic; secondary to Achalasia Nutrition consulted Dispo: Admit to med/surg tele Full Code Status DVT : Lovenox 40 mg q 24 hours. History of Present Illness Chief Complaint: Not feeling well for 2-3 days Primary Care Provider: Deonte Cortés, DO 48 years [place] with P/M/H of COPD, Aspiration pneumonia, Achalasia under PEG tube, Migraines admitted via ED for Recurrent Aspiration Pneumonia. She mention not feeling well since last 2-3 days. She initially had symptoms of flu, running nose, throat irritation, which she thinks she got transmitted from her Mom. Mom was sick with flu for some time. She has had Cough, different than her baseline, productive, whitish moderate sputum, with 2 episode of post cough vomiting. She vomited clear liquid twice. No blood in sputum or vomitus. She endorses some SOB, however its not bothering her that much. She feels SOB was worsened while she presented to ED likely because she did not get Oxygen on the way to ED. She uses O2 via Nasal canula at 2-3 L throughout night and when she is doing some activities. She has baseline SOB as well. Mentions some frontal headache, mild aching which she thinks could be because of her migraine. She has PEG tube for her swallowing issue( Achalasia), takes nothing by mouth, she only feeds herself with food supply via PEG. it keeps running in nighttime from 6PM to 6 AM. Endorses normal bowel, bladder habit. Bowel movement everyday. PMH: Reviewed Drug and Allergy: No allergy Personal history reviewed I discussed code status with her, she is a Full Code. Allergies Allergy/AdvReac Type Severity Reaction Status Date / Time No Known Allergies Allergy Verified 03/12/24 12:18 Home Medications Medication Instructions Recorded Confirmed Type nutrition [id number] 1 ea G-tube DAILY@1800 #6,000 mL 04/06/23 03/12/24 Rx 0.05 gram-1.2 kcal/mL tube feed liquid (Fibersource HN) Rollator Walker #1 ea 04/28/23 06/16/23 Rx Shower Chair #1 ea 04/28/23 06/16/23 Rx albuterol sulfate 90 mcg/actuation 2 puff inhalation QID PRN 08/25/23 03/12/24 Rx aerosol inhaler Shortness Of Breath #18 grams ipratropium 0.5 mg-albuterol 3 mg 3 ml inhalation Q8H PRN shortness 08/25/23 03/12/24 Rx (2.5 mg base)/3 mL nebulization of breath or wheezing #180 mL soln nebulizers (Aeroneb Go Nebulizer) #1 ea 08/25/23 08/25/23 Rx sodium chloride 7 % for 1 inh inhalation BID #240 mL 08/25/23 03/12/24 Rx nebulization umeclidinium 62.5 mcg-vilanterol 1 inh inhalation DAILY #60 ea 08/25/23 03/12/24 Rx 25 mcg/actuation powdr for inhalation (Anoro Ellipta) multivitamin 1 tab PO DAILY 03/12/24 03/12/24 History Past Med/Surg History Problem List (Updated 03/12/24 @ 15:11 by Larisa Lee MD) Enterovirus infection (Acute) Rhinovirus infection (Acute) Acute dyspnea (Acute) Leukocytosis (Acute) Tachycardia (Acute) Acute hypoxemic respiratory failure (Acute) Sepsis (Acute) Restrictive airway disease Severe restrictive lung fx. PFT 07/2023. Pneumonia, aspiration Sacroiliitis Pulmonary nodule Hiatal hernia Duodenal ulcer [place] III (cervical intraepithelial neoplasia III) Allergic rhinitis On enteral nutrition Uses feeding tube Headache Achalasia Palliative care by specialist Advanced care planning/counseling discussion Dyspnea and respiratory abnormalities Weakness generalized Pneumonia (Acute) LBBB (left bundle branch block) Acute respiratory failure with hypoxia Iron deficiency anemia (Chronic) Uterine fibroid Chronic respiratory failure (Chronic) COPD (chronic obstructive pulmonary disease) Bronchiectasis Severe protein-calorie malnutrition Poor dentition (Chronic) Depression (Chronic) Anxiety (Chronic) Tobacco abuse (Chronic) Marijuana smoker (Chronic) Constipation (Chronic) Arthritis (Chronic) Scoliosis (Chronic) Medical History (Updated 03/12/24 @ 15:11 by Larisa Lee MD) Cocaine abuse Aspiration pneumonia COVID-19 Difficulty swallowing Difficulty chewing Surgical History (Updated 03/12/24 @ 13:15 by Jeanne Gamble MD) History of esophagogastroduodenoscopy (EGD) Family History Other Family history non-contributory Social History (Updated 06/16/23 @ 13:15 by Indy Roman LPN) Smoking Status: Current every day smoker Tobacco Type: Cigarettes Cigarettes Per Day: 1 PACK/DAY; Second Hand Exposure: Yes; Do You Dip or Chew Tobacco: No; Hx Alcohol Use: No Hx Substance Use: No Preferred Language: Palestinian Communication Ability: Impaired Visual Impairment: No Limitations Manager Power Required: No Beliefs That Will Affect Care: None marital status: Single Current Living Situation: Family How many Children do You have: 1 Feels Safe at Home: Yes Diet: other Diet Comment: npo caffeine: No Dental Care, Regularly: No Assistive Devices: Other Review of Systems Review of Systems: As per HPI Physical Exam Physical Exam: Constitutional: Ill looking, Malnourished, No acute distress HEENT: Atraumatic, Normocephalic, No conjunctival injection CVS: S1 S2 no murmur, Regular Rhythm, no LE edema Respiratory: BL decreased air entry with coarse breath sound. No wheeze GI: Soft, Nondistended, Nontender, PEG tube in situ. Normal Peristomal skin. No signs of infection. MSK: No gross deformities noted Skin: Warm, Dry, No rashes Neuro: Alert, Oriented to TPP, No Focal deficit Psych: Mood and Affect congruent, Cooperative on exam Results & Data Results & Data Vital Signs (Past 12 Hours) Vital Signs Temp Pulse Pulse Resp BP BP Pulse Ox 03/12/24 14:00 108 H 18 98/67 L 95 03/12/24 13:31 99 H 03/12/24 13:00 103 H 18 104/71 95 03/12/24 12:16 94 03/12/24 12:15 110 H 18 96/72 L 95 03/12/24 10:33 117 H 24 100/74 95 03/12/24 10:15 123 H 20 110/74 93 03/12/24 09:41 128 H 03/12/24 09:21 84 L 03/12/24 09:21 37.5 C 146 H 20 115/71 84 L O2 Del Method O2 Flow Rate 03/12/24 14:00 03/12/24 13:31 03/12/24 13:00 Nasal Cannula 4 03/12/24 12:16 Nasal Cannula 4 03/12/24 12:15 Nasal Cannula 4 03/12/24 10:33 Nasal Cannula 4 03/12/24 10:15 Nasal Cannula 4 03/12/24 09:41 03/12/24 09:21 Room Air 2 03/12/24 09:21 Room Air Code Status & VTE Plan VTE Prophylaxis Plan VTE Prophylaxis will be ordered: Yes Supervising Physician Co-Signing Physician Notes Attending Physician Supervision Note: I independently interviewed and examined the patient and verified the solomon history and physical, reviewed labs and image studies and agree with findings and care plan noted above. 48 y/o F with h/o Achalasia, PEG, recurrent aspirations here for not feeling well, headache and excessive oral secretion In the ED noted to positive for Rhino virus. CT chest showed RML and RLL collapse. o/e - lethargic, spitting up oral secretions, CTA, RRR, Abd - soft, NT/ND Aspiration pneumonia - zosyn, nebs, NPO, Hold PEG feeds. IVF. pul consult. Rhinovirus - supportive care - nsaid, zofran prn. Achalasia/Malnutrition - PEG feeds to hold tonight. Lovenox. Resident Activity Tracking Resident Involvement: Resident Care Provided Care Provided: Adult Hospital Medicine
[2024-03-12] MEDS ORDERED: ALBUTEROL HFA 8 GM INHALER INH PRN (16:02)
[2024-03-12] MEDS ORDERED: ALBUT/IPRATROP 3MG/0.5MG NEB 3 ML VIAL INH PRN (16:02)
[2024-03-12] MEDS: ENOXAPARIN INJ 30 MG/0.3 ML SYR SQ SCH (17:44)
[2024-03-12] MEDS: 4.5GM X1 IV STA (17:44)
[2024-03-12] MEDS: LACTATED RINGER'S 1,000 ML IV SCH (18:16)
[2024-03-12] MEDS ORDERED: INFLUENZA VACC TS2024-25(6m+)/PF (IIV3) 0.5mL Syr IM ONE (19:00)
[2024-03-12] MEDS: SODIUM CHLOR 7% 4 ML NEB NEB SCH (19:21)
[2024-03-12] MEDS: FLUTICASONE PROPIONATE NA SPR 16 GM BTL SCH (21:34)
[2024-03-12] MEDS: PIPERACILLIN/TAZOBACTAM 4.5 GM/100 ML BAG IV SCH (21:35)
[2024-03-12] MEDS: ONDANSETRON INJ 2 MG/ML 2 ML VIAL IV PRN (21:53)
[2024-03-12 22:06] LABS: Appearance Urine Clear (Clear); Bacteria Urine Automated None Seen (None Seen); Bilirubin Urine Negative (Negative); Blood Urine 3+ (Negative); Cast Urine Automated 0-2 /lpf (0-2); Color Urine Yellow; Glucose Urine UA Negative (Negative); Ketones Urine Trace (Negative); Leukocyte Esterase Urine Negative (Negative); Nitrite Urine Negative (Negative); Protein Urine 1+ (Negative); Specific Gravity Urine > 1.045 (1.000-1.030); Urobilinogen Urine Negative (Negative)
[2024-03-13] MEDS: KETOROLAC TROMETHAMINE 15 MG/ML VIAL IV PRN (04:38)
[2024-03-13 06:25] LABS: Basophils # (auto) 0.05 K/uL (0.00-0.20); Basophils % (auto) 0.3 %; Eosinophils # (auto) 0.01 K/uL (0.00-0.50); Eosinophils % (auto) 0.1 %; Hematocrit (blood only) 35.5 % (37.0-47.0); Hemoglobin 11.5 g/dl (12.0-16.0); Immature Granulocytes # (auto) 0.06 K/uL (0.01-0.20); Immature Granulocytes % (auto) 0.4 %; Lymphocytes # (auto) 0.99 K/uL (1.20-3.40); Mean Corpuscular Hgb Conc 32.4 g/dL (32.0-36.0); Mean Corpuscular Volume 92.7 fL (80.0-100.0); Mean Platelet Volume 11.1 fL (9.4-12.4); Monocytes # (auto) 1.01 K/uL (0.11-0.59); Monocytes % (auto) 6.1 %; Neutrophils # (auto) 14.37 K/uL (1.40-6.50); Neutrophils % (auto) 87.1 %; Platelet Count 184 K/uL (130-400); RDW Coefficient of Variation 13.2 % (11.5-14.5); RDW Standard Deviation 44.8 fL (36.4-46.3); Red Blood Count 3.83 M/uL (4.20-5.40); White Blood Count 16.49 K/ul (4.8-10.8)
[2024-03-13 07:01] LABS: Albumin Globulin Ratio 1.1 (0.9-2); Albumin Level 3.3 gm/dl (3.4-5.0); BUN Creatinine Ratio 22.7 (10-20); Calcium 9.5 mg/dl (8.6-10.3); Creatinine Clr Calc Pharmacy 113.1 ml/min; Globulin 3.1 gm/dl (2.5-4.0); Potassium 3.7 mmol/L (3.5-5.1); Total Protein 6.4 gm/dl (6.0-8.3)
[2024-03-13] MEDS: MULTIVITAMIN TAB PO SCH (08:24)
--- NOTE | 2024-03-13 08:30 | Pulmonary Consultation ---
Date of Consultation March 13, 2024 Assessment & Plan (1) Pneumonia, aspiration: She has evidence of right lower lobe collapse with inspissated secretions in the bronchus intermedius. She also has chronic left lower lobe collapse. Will trial conservative therapies for an additional 24 to 48 hours with percussive vest therapy 4 times daily, Mucinex, hypertonic saline twice daily, flutter valve and formoterol to help clear her secretions. Ultimately, she may require bronchoscopy for airway clearance. Please obtain sputum culture. Orders placed. Continue with Zosyn for the time being. MRSA screen will need to be obtained will (orders placed) and if positive MRSA coverage will need to be added. Repeat chest x-ray tomorrow. (2) Acute hypoxemic respiratory failure: Continue to wean supplemental oxygen as able. Maintain sats above 88%. (3) Rhinovirus infection: Supportive management as above. (4) Acute dyspnea: Secondary to patient's acute pneumonia and lobar collapse. Symptoms improving. (5) Achalasia: Patient with a known history of achalasia and PEG tube. (6) Muscle wasting: Patient appears frail and cachectic on exam with clinical findings of muscle wasting. Recommend nutrition consultation. Plan Pulmonary will continue to follow. Thank you for the consult. History of Present Illness Reason for Consultation: "Recurrent aspiration pneumonia" Attending Physician: Jeanne Gamble MD History of Present Illness 48-year-old female known to Dr. Jackson of the pulmonary clinic who presented to the hospital due to increasing shortness of breath over the last 2 to 3 days. Patient apparently wears oxygen at home as needed and has been noticing that she has needed it more often especially when moving. She notes that her mobility is quite limited, but she does walk with a rolling walker in her apartment to her bathroom. She denies any chest pain or shortness of breath at rest currently. She does note that she is very sleepy and has not had a good rest in the last 24 to 48 hours. She had PFTs in July 2023 which revealed severe restrictive physiology likely secondary to the patient's severe muscle wasting. Her diffusion capacity was also reduced likely from chronic atelectasis. Chest CTA this admission on 03/12/2024 did not demonstrate any evidence of PE, but new right lower lobe collapse was noted with debris in the bronchus intermedius. Chronic left lower lobe collapse noted as well. Patient has a severely dilated esophagus and apparently a known history of achalasia. She has a PEG tube. Patient is strictly n.p.o. by mouth at home and takes everything through her PEG tube. She is currently on 3 L of supplemental oxygen via nasal cannula. She was started on Zosyn by the hospitalist service. I have also added hypertonic saline twice daily, percussive vest therapy, perform wrist twice daily and Mucinex twice daily. Allergies Allergy/AdvReac Type Severity Reaction Status Date / Time No Known Allergies Allergy Verified 03/12/24 12:18 Home Medications Medication Instructions Recorded Confirmed Type nutrition [id number] 1 ea G-tube DAILY@1800 #6,000 mL 04/06/23 03/12/24 Rx 0.05 gram-1.2 kcal/mL tube feed liquid (Fibersource HN) Rollator Walker #1 ea 04/28/23 06/16/23 Rx Shower Chair #1 ea 04/28/23 06/16/23 Rx albuterol sulfate 90 mcg/actuation 2 puff inhalation QID PRN 08/25/23 03/12/24 Rx aerosol inhaler Shortness Of Breath #18 grams ipratropium 0.5 mg-albuterol 3 mg 3 ml inhalation Q8H PRN shortness 08/25/23 03/12/24 Rx (2.5 mg base)/3 mL nebulization of breath or wheezing #180 mL soln nebulizers (Aeroneb Go Nebulizer) #1 ea 08/25/23 08/25/23 Rx sodium chloride 7 % for 1 inh inhalation BID #240 mL 08/25/23 03/12/24 Rx nebulization umeclidinium 62.5 mcg-vilanterol 1 inh inhalation DAILY #60 ea 08/25/23 03/12/24 Rx 25 mcg/actuation powdr for inhalation (Anoro Ellipta) multivitamin 1 tab PO DAILY 03/12/24 03/12/24 History Patient History Medical History (Updated 03/13/24 @ 13:52 by Atilio Damon MD) Cocaine abuse Aspiration pneumonia COVID-19 Difficulty swallowing Difficulty chewing Surgical History (Updated 03/12/24 @ 13:15 by Jeanne Gamble MD) History of esophagogastroduodenoscopy (EGD) Family History Other Family history non-contributory Social History (Updated 06/16/23 @ 13:15 by Indy Roman LPN) Smoking Status: Current every day smoker Tobacco Type: Cigarettes Cigarettes Per Day: 1 PACK/DAY; Second Hand Exposure: Yes; Do You Dip or Chew Tobacco: No; Hx Alcohol Use: No Hx Substance Use: Yes Preferred Language: Citizen Of [place] Communication Ability: Effective Visual Impairment: No Limitations 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 Cachectic appearing. Disheveled. Eyes: Pupils are equal round and reactive to light. Conjunctivae are normal. Anicteric sclera. Ears nose, mouth and throat: No perioral cyanosis. Neck: Trachea is midline. Visual inspection is normal. Respiratory: Coarse rhonchi bilaterally in the lower lobes. Mildly tachypneic. Cardiovascular: Regular rate and rhythm. No murmurs. No edema. Gastrointestinal: Normal bowel sounds, soft, nontender and nondistended. PEG tube intact. Musculoskeletal: No cyanosis. Patient is able to move all extremities. Diffusely weak in all extremities. Skin: No rashes, warm dry and intact. Neurologic: No obvious focal neurological deficits seen. Psychiatric: Alert and oriented x3 with a depressed and lethargic mood. Results & Data Results & Data Vital Signs (Past 12 Hours) Vital Signs Temp Pulse Pulse Pulse Resp BP BP 03/13/24 07:21 86 18 03/13/24 07:09 36.7 C 91 H 17 96/62 L 03/13/24 03:05 37.1 C 86 18 100/64 03/12/24 23:00 95 H 03/12/24 23:00 37.3 C 93 H 18 100/63 Pulse Ox O2 Del Method O2 Flow Rate 03/13/24 07:21 96 Nasal Cannula 3 03/13/24 07:09 97 Nasal Cannula 3 03/13/24 03:05 96 Nasal Cannula 4 03/12/24 23:00 03/12/24 23:00 97 Nasal Cannula 4 PG Care Time/CCT Total # of Minutes Spent Total Time Spent with Patient: Total time spent is greater than 50% in coordination of care (as documented) at patient's floor/unit and/or counseling patient: Coding Level of Care Code 15421 IN/OBS CONSULT LVL 4,60M Diagnoses Pneumonia, aspiration J69.0 Acute hypoxemic respiratory failure J96.01 Rhinovirus infection B34.8 Acute dyspnea R06.00 Achalasia K22.0 Muscle wasting M62.50
--- NOTE | 2024-03-13 08:47 | Hospitalist Progress Note ---
Date of Service March 13, 2024 Assessment & Plan (1) Rhinovirus infection: (2) Pneumonia, aspiration: (3) Uses feeding tube: (4) Severe protein-calorie malnutrition: (5) COPD (chronic obstructive pulmonary disease): (6) Chronic respiratory failure: (7) Achalasia: (8) Headache: Plan 48 years old with P/M/H of COPD, aspiration Pneumonia, Achalasia, PEG tube in situ admitted for recurrent aspiration Pneumonia. # Aspiration PNA: -Recurrent episode, not in Sepsis RFs: Achalasia, increased secretion in oral cavity, likely secondary to rhino virus infection. -Inv WBC: 16.13 k--- 16.49k today BioFire: Rhino Virus +ve Chest Xray: Right Middle lobe Consolidation CT Chest Angio: PE ruled out, Patulous dilatation of Oesophagus with Tracheobronchial secretion, Bilateral basilar mucous plugging Consolidation in Right Middle, Bilateral Lower lobes. Mgmt: Zosyn 4.5 gm IV 8 hourly: D2 O2 4L /min Via Nasal canula Pulmonology consult: Pending #Achalasia half-way PEG tube for feeding Kept on hold during admission; to reduce r/o aspiration #Rhinovirus infection Symptoms: Increased secretion, headache. Nausea, Vomiting 4 mg IV Zofran PRN for nausea /15 mg IV Toradol PRN for headache Flonase nasal spray Mucinex on board by Pulmo; discussed is she need Glycopyrrolate, not recommended in setting of acute illness. #COPD Chronic stable, under home O2 2-3 L on nighttime Continued O2 on admission at 4L/min Home medications continued #Protein calorie Malnutrition Chronic; secondary to Achalasia Deranged LFTs, Likely sec to PCM trending down Nutrition consult pending Dispo: Admit to med/surg tele Full Code Status DVT : Lovenox 30mg q 24 hours. Admission and Anticipated Discharge Date Admission Date: March 12, 2024 Supervising Physician Co-Signing Physician Notes Attending Physician Supervision Note: I independently interviewed and examined the patient and verified the solomon history and physical, reviewed labs and image studies and agree with findings and care plan noted above. 48 y/o F with h/o Achalasia, PEG, recurrent aspirations here for not feeling well, headache and excessive oral secretion In the ED noted to positive for Rhino virus. CT chest showed RML and RLL collapse. Didn't sleep last night until 4am. This morning tired and hard to wake up. o/e - lethargic, spitting up oral secretions, CTA, RRR, Abd - soft, NT/ND Aspiration pneumonia with RML and RLL collapse - continue zosyn, nebs, NPO, Hold PEG feeds. IVF. pul consult. Rhinovirus - supportive care - nsaid, zofran prn. Achalasia/Malnutrition - Hold PEG feeds until oral secretions improved. Lovenox. Subjective Today morning Loulou was sleeping on bed. She said she could not sleep last night, just got some sleep this AM. Did not want to talk much, however she seemed tired and lethargic to me, though comparable to yesterday when I saw her at ED. Review of Systems Review of Systems: As per HPI Physical Exam Physical Exam: Constitutional: Ill looking, Malnourished, No acute distress HEENT: Atraumatic, Normocephalic, No conjunctival injection CVS: S1 S2 no murmur, Regular Rhythm, no LE edema Respiratory: BL decreased air entry with coarse breath sound. No wheeze GI: Soft, Nondistended, Nontender, PEG tube in situ. Normal Peristomal skin. No signs of infection. MSK: No gross deformities noted Skin: Warm, Dry, No rashes Neuro: Alert, Oriented to TPP, No Focal deficit Psych: Mood and Affect congruent, Cooperative on exam Results & Data Results & Data Vital Signs (Past 12 Hours) Vital Signs Temp Pulse Pulse Pulse Resp BP BP 03/13/24 07:21 86 18 03/13/24 07:09 36.7 C 91 H 17 96/62 L 03/13/24 03:05 37.1 C 86 18 100/64 03/12/24 23:00 95 H 03/12/24 23:00 37.3 C 93 H 18 100/63 Pulse Ox O2 Del Method O2 Flow Rate 03/13/24 07:21 96 Nasal Cannula 3 03/13/24 07:09 97 Nasal Cannula 3 03/13/24 03:05 96 Nasal Cannula 4 03/12/24 23:00 03/12/24 23:00 97 Nasal Cannula 4 Resident Activity Tracking Resident Involvement: Resident Care Provided Care Provided: Adult Hospital Medicine and Pediatric Care
[2024-03-13] MEDS ORDERED: UMECLIDINIUM/VILANTEROL 62.5/25MCG 7 PUFFS/INHALER INH SCH (09:00)
[2024-03-13] MEDS: FORMOTEROL 20 MCG/2 ML VIAL NEB SCH (09:02)
[2024-03-13] MEDS: guaiFENesin 600 MG TABCR PO SCH (10:06)
[2024-03-13] MEDS ORDERED: cefTRIAXone SODIUM 2,000 MG/50 ML BAG IV SCH (12:00)
[2024-03-13] MEDS: MELATONIN 3 MG TAB PO PRN (21:17)
[2024-03-13] MEDS: guaiFENesin SUGAR FREE 200 MG/10 ML UDC PO PRN (21:37)
--- NOTE | 2024-03-14 07:20 | Pulmonology Progress Note ---
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: Plan CTA chest 03/12/2024 personally reviewed:Collapse of the right lower lobe with debris in the RBI Chronic collapse of the left lower lobe Right upper lobe 3 mm pulmonary nodule Dilated esophagus No significant mediastinal lymphadenopathy PFT 08/25/2023 personally reviewed: Suboptimal test, severe restrictive lung dysfunction, no obstruction, air trapping, insignificant bronchodilator response, mild decrease in DLCO (Decrease in FVC by 270 mL, no significant change in FEV1, DLCO or TLC compared to 03/18) FVC 1.33 L 37%, FEV1 1.09 L 37%, FEV1/FVC 82%, ERV 36%, RV 142%, TLC 73%, RV/TLC 194%, DLCO 63%, DLCO/VA 107% --Acute on chronic hypoxic respiratory failure On 1 L at rest and 3 L on exertion at baseline Likely secondary to aspiration with debris in the RBI Known history of aspiration Right lower lobe collapse, chronic left lower lobe collapse Respiratory BioFire was positive for entero/rhinovirus Continue with hypertonic saline, chest vest --COPD with restrictive pattern Approximately [id number] smoking history quit in March 2019 Restriction is likely coming from mild kyphosis that she has as well as chronic left lower lobe collapse Patient's alpha-1 antitrypsin level within normal limits. Phenotype MM, Normal Continue with Anoro on a daily basis Advised to be more compliant --Chronic left lower lobe collapse New compared to CT chest 04/2019, likely present on x-ray 11/28/2022 On hypertonic saline along with DuoNebs to be used twice a day which will be followed up with flutter valve --Bronchiectasis Likely secondary chronic aspiration pneumonia bilateral lower lobes, more on the right side Patient has flutter valve, advised patient to be more compliant with it. Continue with incentive spirometry Repeat videofluoroscopy 02/06/2022 continues to show tracheal aspiration with multiple consistencies. Patient has followed up with speech therapy --Active marijuana use Advised to quit --Ex-smoker Approximately 46-[id number]-[id number] smoking history Quit in 2019 Encouraged to continue abstinence from smoking --Achalasia PEG tube removed in 2020, Replaced early in 2023 Following up with GI for that. Plan: Chest x-ray from today still shows right lower lobe collapse Will plan to do bronchoscopy today if the patient is agreeable to it. Hold Lovenox, keep the patient n.p.o. Patient might benefit from CoughAssist on discharge Please note the above document was generated using voice recognition software. It may contain grammatical, syntax or spelling errors.Any formal questions or concerns about the content, text or information contained within the body of this dictation should be directly addressed to the provider for clarification. Admission and Anticipated Discharge Date Admission Date: March 12, 2024 Subjective Patient seen and examined at bedside. No acute distress, notable symptoms overnight She was on room air saturating 89% with heart rate in the mid 80s She still complaining of significant runny nose and saliva production Denied any chest pain She says that she is not eating anything by mouth for a while now No chest pain Shortness of breath is at baseline Denies any headache or blurry vision No recent nausea vomiting Case was discussed with outgoing chemist instrumentation Patient's caregiver/boyfriend was also in the room at the time of examination Review of Systems 2 Review of Systems: All systems reviewed & are unremarkable except as noted in Subjective Physical Exam 2 Physical Exam: Constitutional: No acute distress, cachexia HEENT: EOMI, PERRLA Respiratory system: Decreased air entry bilaterally, no wheeze, no rhonchi, positive crackles bilateral lower lobes CVS: S1-S2 positive, positive 2 out of 6 systolic murmur appreciated best at aorta, tachycardia, regular rhythm Abdomen: Soft, nontender, nondistended, positive bowel sounds x4, positive PEG Extremities: +2 pulses bilaterally radialis/ dorsalis pedis, no cyanosis, no edema Neuro: Awake alert oriented x3 Psych: Normal mood and affect. G/U: No Howard Skin: no rashes, warm and dry Lymphatic: no cervical or axillary lymphadenopathy Results & Data Results & Data Vital Signs (Past 12 Hours) Vital Signs Temp Pulse Pulse Pulse Resp BP Pulse Ox 03/14/24 07:14 79 17 95 03/14/24 03:20 37.0 C 79 18 98/61 L 99 03/13/24 23:00 87 03/13/24 22:53 37.0 C 78 18 99/64 L 97 03/13/24 21:40 03/13/24 19:31 37.0 C 81 18 104/66 99 03/13/24 19:31 82 17 96 O2 Del Method O2 Flow Rate 03/14/24 07:14 Nasal Cannula 4 03/14/24 03:20 Nasal Cannula 4 03/13/24 23:00 03/13/24 22:53 Nasal Cannula 4 03/13/24 21:40 Nasal Cannula 4 03/13/24 19:31 Nasal Cannula 3 03/13/24 19:31 Nasal Cannula 3 Laboratory Results 03/14/24 07:03 03/14/24 07:03 PG Care Time/CCT Total # of Minutes Spent Total Time Spent with Patient: Total time spent is greater than 50% in coordination of care (as documented) at patient's floor/unit and/or counseling patient: Coding Level of Care Code 52949 SUB INP/OBS CARE 3/50MIN Diagnoses Pneumonia, aspiration J69.0 Acute hypoxemic respiratory failure J96.01 Rhinovirus infection B34.8 Acute dyspnea R06.00 Achalasia K22.0 Muscle wasting M62.50 COPD (chronic obstructive pulmonary disease) J44.9 Bronchiectasis J47.9 Mixed restrictive and obstructive lung disease J43.9; J98.4
[2024-03-14 07:22] LABS: Basophils # (auto) 0.03 K/uL (0.00-0.20); Basophils % (auto) 0.3 %; Eosinophils # (auto) 0.08 K/uL (0.00-0.50); Eosinophils % (auto) 0.9 %; Hematocrit (blood only) 32.3 % (37.0-47.0); Hemoglobin 9.8 g/dl (12.0-16.0); Immature Granulocytes # (auto) 0.06 K/uL (0.01-0.20); Immature Granulocytes % (auto) 0.7 %; Mean Corpuscular Hgb Conc 30.3 g/dL (32.0-36.0); Mean Corpuscular Volume 95.6 fL (80.0-100.0); Mean Platelet Volume 10.8 fL (9.4-12.4); Monocytes # (auto) 0.47 K/uL (0.11-0.59); Monocytes % (auto) 5.2 %; Neutrophils % (auto) 82.9 %; Platelet Count 155 K/uL (130-400); RDW Coefficient of Variation 13.1 % (11.5-14.5); RDW Standard Deviation 45.5 fL (36.4-46.3); Red Blood Count 3.38 M/uL (4.20-5.40); White Blood Count 9.04 K/ul (4.8-10.8)
[2024-03-14 07:34] LABS: Albumin Globulin Ratio 0.9 (0.9-2); Bilirubin,Total 0.8 mg/dl (0.2-1.0); Calcium 9.2 mg/dl (8.6-10.3); Creatinine Clr Calc Pharmacy 135.3 ml/min; Globulin 3.3 gm/dl (2.5-4.0); Potassium 3.8 mmol/L (3.5-5.1); Total Protein 6.3 gm/dl (6.0-8.3)
--- NOTE | 2024-03-14 08:10 | XRay Report ---
EXAM: XR chest 1V portable CLINICAL HISTORY: PNA PORTABLE BME/KAA TECHNIQUE: An X-ray image of the chest is obtained in AP projection. COMPARISON: 03/12/2024, 04/09/2023 FINDINGS: Pulmonary Parenchyma: Obscured right diaphragmatic border and costophrenic angle, with visualized cardiac border of likely right lower lobe collapse, Partly obscured left diaphragmatic border with double density in the left cardiac border suggesting partial left lower lobe collapse. No evidence of pleural effusion or pleural thickening. Heart and Mediastinum: Heart size and shape are normal. No mediastinal widening or masses. No hilar or mediastinal lymphadenopathy. Bony Thorax: Bony thorax appears intact without fractures or deformities. Soft Tissues: Soft tissues overlying the chest wall are unremarkable. IMPRESSION: 1. Evidence of right right lower lobe collapse/ consolidation, stable since 03/12/2024 stusy and progressed since 04/09/2023 study. 2. Evidence of left partial lower lobe collapse, mildly progressed since last studies. Electronically signed by Peyton Mota 03-14-2024 08:09 AM
--- NOTE | 2024-03-14 08:57 | Hospitalist Progress Note ---
Date of Service March 14, 2024 Assessment & Plan (1) Rhinovirus infection: (2) Pneumonia, aspiration: (3) Uses feeding tube: (4) Severe protein-calorie malnutrition: (5) COPD (chronic obstructive pulmonary disease): (6) Chronic respiratory failure: (7) Achalasia: (8) Headache: Plan 48 years old with P/M/H of COPD, aspiration Pneumonia, Achalasia, PEG tube in situ admitted for recurrent aspiration Pneumonia. # Aspiration PNA: -Recurrent episode, not in Sepsis RFs: Achalasia, increased secretion in oral cavity, likely secondary to rhino virus infection. -Inv WBC: Trending down 16.13 k-----9.04> today BioFire: Rhino Virus +ve Chest Xray: Right Middle lobe Consolidation CT Chest Angio: PE ruled out, Patulous dilatation of Oesophagus with Tracheobronchial secretion, Bilateral basilar mucous plugging Consolidation in Right Middle, Bilateral Lower lobes. Nasal MRSA: Negative Mgmt: Zosyn 4.5 gm IV 8 hourly: D3 O2 4L /min Via Nasal canula Pulmo( appreciate rec): Recs Mucolytics, Chest vest therapy, Flutter valve Repeat Chest Xray: Left lower lobe collapse progressed, rest stable Plan: Bronchoscopy today( hold Enoxaparin) #Achalasia intermediate frame tender PEG tube for feeding Kept on hold during admission; to reduce r/o aspiration #Rhinovirus infection Symptoms: Increased secretion, headache. Nausea, Vomiting 4 mg IV Zofran PRN for nausea /15 mg IV Toradol PRN for headache Flonase nasal spray Mucinex on board by Pulmo; discussed is she need Glycopyrrolate, not recommended in setting of acute illness. #COPD Chronic stable, under home O2 2-3 L on nighttime Continued O2 on admission at 4L/min Home medications continued #Protein calorie Malnutrition Chronic; secondary to Achalasia Deranged LFTs, Likely sec to PCM trending down Nutrition consult: Modified PEG diet; will continue after starting PEG tube. #Anxiety/ Depression Long history per patient; Not under any chronic medication. Patient states she is depressed and want some medication. Lexapro 10 mg once daily added. Dispo: Admit to med/surg tele Full Code Status DVT : Lovenox 30mg q 24 hours( held today for broncho) Admission and Anticipated Discharge Date Admission Date: March 12, 2024 Supervising Physician Co-Signing Physician Notes I personally examined the patient and verified all solomon points of history and exam, discussed case, and agree with decision making with Dr Azul feeling better than when she came in but not back to baseline yet has had bronch before vitals noted nad quiet bases rhonchi L upper lung no accessory muscles, on NC O2 Aspiration pneumonia with RML and RLL collapse - -therapeutic bronch -finish antibiotics -needs supportive care (still on more O2 than baseline) Rhinovirus - supportive care - nsaid, zofran prn. Achalasia/Malnutrition - Hold PEG feeds until oral secretions improved. Lovenox. Subjective Today morning Loulou is awake and is lying on bed at baseline status. She said she slept better last night. She seemed anxious and stressed. She was tearful in our conversation that her disease is not curable. She is still having mouth secretion and persistent cough. Feels little better than yesterday. Review of Systems Review of Systems: As per HPI Physical Exam Physical Exam: Constitutional: Ill looking, Malnourished, No acute distress HEENT: Atraumatic, Normocephalic, No conjunctival injection CVS: S1 S2 no murmur, Regular Rhythm, no LE edema Respiratory: BL decreased air entry with coarse breath sound. No wheeze GI: Soft, Nondistended, Nontender, PEG tube in situ. Normal Peristomal skin. No signs of infection. MSK: No gross deformities noted Skin: Warm, Dry, No rashes Neuro: Alert, Oriented to TPP, No Focal deficit Psych: Mood and Affect congruent, Cooperative on exam Results & Data Results & Data Vital Signs (Past 12 Hours) Vital Signs Temp Pulse Pulse Pulse Resp BP Pulse Ox 03/14/24 07:27 36.8 C 86 17 113/69 97 03/14/24 07:15 92 H 03/14/24 07:15 03/14/24 07:14 79 17 95 03/14/24 03:20 37.0 C 79 18 98/61 L 99 03/13/24 23:00 87 03/13/24 22:53 37.0 C 78 18 99/64 L 97 03/13/24 21:40 O2 Del Method O2 Flow Rate 03/14/24 07:27 Nasal Cannula 3 03/14/24 07:15 03/14/24 07:15 Nasal Cannula 4 03/14/24 07:14 Nasal Cannula 4 03/14/24 03:20 Nasal Cannula 4 03/13/24 23:00 03/13/24 22:53 Nasal Cannula 4 03/13/24 21:40 Nasal Cannula 4 Resident Activity Tracking Resident Involvement: Resident Care Provided Care Provided: Adult Hospital Medicine
[2024-03-14] MEDS: LACTATED RINGER'S 1,000 ML IV SCH (09:49)
[2024-03-14] MEDS ORDERED: DEXAMETHASONE SOD INJ 4 MG/ML VIAL ONE (14:03)
[2024-03-14] MEDS ORDERED: PROPOFOL IV EMULSION 10 MG/ML 20 ML VIAL IV ONE (14:03)
[2024-03-14] MEDS ORDERED: MIDAZOLAM HCL 1 MG/ML 2ML VIAL ONE (14:03)
[2024-03-14] MEDS ORDERED: fentaNYL citrate PF 100 MCG/2 ML VIAL ONE (14:03)
[2024-03-14] MEDS ORDERED: LIDOCAINE 2% 2 ML VIAL/AMP(20MG/ML) INFIL ONE (14:03)
[2024-03-14] MEDS ORDERED: ONDANSETRON INJ 2 MG/ML 2 ML VIAL ONE (14:03)
--- NOTE | 2024-03-14 14:31 | Anesthesiology Consultation ---
Date of Service March 14, 2024 Assessment & Plan (1) Encounter for pre-operative examination: Chart Review Chart Review: Acceptable Risk for Surgery and Patient NOT seen in Pre Admission Testing Consults Requested none History Surgery Operation Date: 03/14/24 14:55 Proposed Procedures p [facility] - [facility] Height/Weight Height: 5 ft 4 in Weight: 46.1 kg Allergies Allergy/AdvReac Type Severity Reaction Status Date / Time No Known Allergies Allergy Verified 03/12/24 12:18 Medications Home Medications Medication Instructions Recorded Confirmed Last Taken nutrition [id number] 1 ea G-tube DAILY@1800 #6,000 mL 04/06/23 03/12/24 Unknown 0.05 gram-1.2 kcal/mL tube feed liquid (Fibersource HN) Rollator Walker #1 ea 04/28/23 06/16/23 Unknown Shower Chair #1 ea 04/28/23 06/16/23 Unknown albuterol sulfate 90 mcg/actuation 2 puff inhalation QID PRN 08/25/23 03/12/24 Unknown aerosol inhaler Shortness Of Breath #18 grams ipratropium 0.5 mg-albuterol 3 mg 3 ml inhalation Q8H PRN shortness 08/25/23 03/12/24 Unknown (2.5 mg base)/3 mL nebulization of breath or wheezing #180 mL soln nebulizers (Aeroneb Go Nebulizer) #1 ea 08/25/23 08/25/23 Unknown sodium chloride 7 % for 1 inh inhalation BID #240 mL 08/25/23 03/12/24 Unknown nebulization umeclidinium 62.5 mcg-vilanterol 1 inh inhalation DAILY #60 ea 08/25/23 03/12/24 Unknown 25 mcg/actuation powdr for inhalation (Anoro Ellipta) multivitamin 1 tab PO DAILY 03/12/24 03/12/24 03/11/24 Active Medications Generic Name Dose Route Start Last Admin Trade Name Freq PRN Reason Stop Dose Admin Enoxaparin Sodium 30 mg 03/12/24 17:00 03/13/24 17:48 Enoxaparin Inj 30 Mg/0.3 Ml Syr SQ 04/11/24 16:59 30 mg Q24H SARITA Administration Fluticasone Propionate 2 sprays 03/12/24 21:00 03/14/24 09:34 Fluticasone Propionate Na Spr 16 Gm Btl NA 04/11/24 20:59 Not Given BID SARITA Formoterol Fumarate 20 mcg 03/13/24 09:00 03/14/24 07:14 Formoterol 20 Mcg/2 Ml Vial NEB 04/12/24 08:59 20 mcg BID SARITA Administration Guaifenesin 200 mg 03/13/24 15:59 03/13/24 21:37 Guaifenesin Sugar Free 200 Mg/10 Ml Udc PO 04/12/24 15:58 200 mg Q6H PRN Administration Cough Piperacillin Sod/Tazobactam Sod 4.5 gm in 100 mls @ 25 mls/hr 03/12/24 22:00 03/14/24 09:42 Zosyn IV 03/17/24 21:59 Infused Q8H SARITA Infusion Protocol Lactated Ringer's 1,000 mls @ 80 mls/hr 03/14/24 09:45 03/14/24 09:49 Lr IV 03/16/24 09:44 80 mls/hr .[id number] SARITA Administration Ketorolac Tromethamine 15 mg 03/12/24 16:02 03/14/24 05:50 Ketorolac Tromethamine 15 Mg/Ml Vial IV 03/17/24 16:01 15 mg Q6H PRN Administration Pain Melatonin 3 mg 03/13/24 14:33 03/13/24 21:17 Melatonin 3 Mg Tab PO 04/12/24 14:32 3 mg HS PRN Administration Sleep Multivitamins 1 tab 03/13/24 09:00 03/14/24 09:34 Multivitamin Tab PO 04/12/24 08:59 Not Given DAILY SARITA Ondansetron HCl 4 mg 03/12/24 14:31 03/13/24 20:25 Ondansetron Inj 2 Mg/Ml 2 Ml Vial IV 04/11/24 14:30 4 mg Q6H PRN Administration Nausea Sodium Chloride 4 ml 03/12/24 19:00 03/14/24 07:14 Sodium Chlor 7% 4 Ml Neb NEB 04/11/24 18:59 4 ml BIDR SARITA Administration NPO Last Intake of Fluids Comment: pt has peg tube npo Last Intake of Solids Comment: pt has peg tube npo Past Medical History Medical History (Updated 03/14/24 @ 14:31 by Shiva Johnson MD) Encounter for pre-operative examination Mixed restrictive and obstructive lung disease Muscle wasting Enterovirus infection Acute dyspnea Acute hypoxemic respiratory failure Restrictive airway disease Severe restrictive lung fx. PFT 07/2023. Uses feeding tube Achalasia LBBB (left bundle branch block) COPD (chronic obstructive pulmonary disease) Poor dentition Depression Marijuana smoker Cocaine abuse Aspiration pneumonia COVID-19 Difficulty swallowing Difficulty chewing Assessment & Plan (1) Rhinovirus infection: (2) Pneumonia, aspiration: (3) Uses feeding tube: (4) Severe protein-calorie malnutrition: (5) COPD (chronic obstructive pulmonary disease): (6) Chronic respiratory failure: (7) Achalasia: (8) Headache: Past Family History Family History Other Family history non-contributory Past Surgical History Surgical History History of esophagogastroduodenoscopy (EGD) PEG tube Social History Smoking Status: Current every day smoker tobacco type: cigarettes Smoking cigarettes per day: 1 PACK/DAY Do You Dip or Chew Tobacco: No Hx Alcohol Use: No Hx Substance Use: Yes substance use type: marijuana Physical Exam Vital Signs Last Vital Signs Temp 36.8 C 03/14/24 14:15 Pulse 77 03/14/24 14:15 Resp 20 03/14/24 14:15 BP 112/73 03/14/24 14:15 Pulse Ox 97 03/14/24 14:15 O2 Del Method Nasal Cannula 03/14/24 14:15 O2 Flow Rate 3 03/14/24 14:15 Testing Laboratory Results 03/14/24 07:03 03/14/24 07:03 PT 10.9 Seconds (9.0-12.0) 03/12/24 09:45 INR 1.0 (0.9-1.1) 03/12/24 09:45 Urine Color Yellow 03/12/24 21:45 Urine Appearance Clear (Clear) 03/12/24 21:45 Urine pH 5.0 (4.5-7.5) 03/12/24 21:45 Ur Specific [place] > 1.045 (1.000-1.030) H 03/12/24 21:45 Urine Protein 1+ (Negative) H 03/12/24 21:45 Urine Glucose (UA) Negative (Negative) 03/12/24 21:45 Urine Ketones Trace (Negative) H 03/12/24 21:45 Urine Nitrite Negative (Negative) 03/12/24 21:45 Ur Leukocyte Esterase Negative (Negative) 03/12/24 21:45 Urine WBC (Auto) 6-10 /hpf (0-5) H 03/12/24 21:45 Urine RBC (Auto) 11-20 /hpf (0-2) H 03/12/24 21:45 U Hyaline Cast (Auto) 0-2 /lpf (0-2) 03/12/24 21:45 U Epithel Cells (Auto) 6-10 /hpf (0-2) H 03/12/24 21:45 Urine Bacteria (Auto) None Seen (None Seen) 03/12/24 21:45 03/13/24 16:05 Gram Stain - Final Sputum, Expectorated Sputum Culture - Preliminary Scant normal nolvia present; Final report to follow.
[2024-03-14] MEDS ORDERED: fentaNYL citrate PF 100 MCG/2 ML VIAL IV PRN (14:38)
[2024-03-14] MEDS ORDERED: ePHEDrine sulfate 50 MG/ML AMP IV PRN (14:38)
[2024-03-14] MEDS ORDERED: ATROPINE SULFATE 0.1 MG/ML 10ML SYR IV PRN (14:38)
[2024-03-14] MEDS ORDERED: GLYCOPYRROLATE 0.2 MG/ML VIAL ONE (15:20)
[2024-03-14 15:26] LABS: Pregnancy Test, Serum Negative (Negative)
[2024-03-14] MEDS ORDERED: ROCURONIUM BROMIDE 10 MG/ML 5 ML VIAL IV ONE (15:47)
[2024-03-14] MEDS ORDERED: SUGAMMADEX SODIUM 200 MG/2 ML VIAL IV ONE (16:04)
[2024-03-14] MEDS ORDERED: PHENYLEPHRINE 100MCG/ML 5ML SYR ONE (16:13)
--- NOTE | 2024-03-14 16:13 | Procedure Note ---
Procedure Note: Bronchoscopy Procedure PREOPERATIVE DIAGNOSIS: Bilateral lower lobe collapse POSTOPERATIVE DIAGNOSIS: Mucous plugging of the right lower lobe as well as left lower lobe PROCEDURE PERFORMED: Flexible fiberoptic bronchoscopy with clearing of the airways and bronchoalveolar lavage COMPLICATIONS: None. INDICATION: Mucous plugging with bilateral lower lobe collapse PROCEDURE: After obtaining an informed consent, the patient was brought to the OR. The patient had appropriate oxygen, blood pressure, heart rate, and respiratory rate monitoring applied and monitored continuously throughout the procedure. Sedation was managed by anesthesia, please refer to their note Please make note that the mucosa was very friable. There was ecchymosis appreciated even on minimal suctioning. The trachea appeared normal.The bronchoscope was then advanced through the noris, which was sharp. At the noris we were able to see mucous plugging of bilateral lower lobes. On the right side right at the entrance of RBI, on the left side right at the entrance of lower bronch The scope was then advanced into the right main stem and each segment, subsegement in the right upper lobe, significant mucus was appreciated in the RBI. After suctioning it out right middle lobe and right lower lobe were visualized. There were no other findings including evidence of mass, anatomic distortions, or hemorrhage. The bronchoscope was subsequently withdrawn and advanced into the left mainstem. Again, each segment and subsegment was well visualized. No specific masses or other lesions were identified throughout the tracheobronchial tree on the left. There was mucous plugging of the left lower lobe which was suctioned clear The bronchoscope was then wedged in the right lower lobe and bronchoalveolar lavage samples were obtained. 120 ml of saline was instilled and 40 ml of fluid was aspirated back. The bronchoscope was withdrawn and the area was suctioned clear. The bronchoscope was then withdrawn to the mainstem. The area was suctioned clear. The bronchoscope was then withdrawn. The patient tolerated the procedure well without evidence of desaturation or complications. Bronchoalveolar lavage samples were sent for cell count, Gram stain and bacterial culture, AFB culture and smear, fungal culture and smear and cytology. Recommendations: Follow-up micro, cytology and pathology Follow-up chest x-ray Please note the above document was generated using voice recognition software. It may contain grammatical, syntax or spelling errors.Any formal questions or concerns about the content, text or information contained within the body of this dictation should be directly addressed to the provider for clarification. [facility] [place] Procedure Codes (Charges) Pulmonary/Thoracic Procedure 1: Pulmonary and Thoracic: 29929 Bronchoscopy, clear airways Procedure 2: Pulmonary and Thoracic: 16288 Dx bronchoscopy/BAL
[2024-03-14] MEDS: ONDANSETRON INJ 2 MG/ML 2 ML VIAL IV PRN (16:36)
--- NOTE | 2024-03-14 16:44 | XRay Report ---
Clinical History: Post bronchoscopy Technique: PA and lateral views of the chest were obtained Comparison is made to the prior examination obtained earlier today Findings: There are bilateral lower lobe opacities that could be due to either atelectasis or pneumonia. The heart size is within normal limits. No definite pleural effusion or pneumothorax is seen. There is no definite pulmonary nodule. No fracture is noted. No foreign body is seen Impression: Unchanged bilateral lower lobe opacities which could be due to either atelectasis or pneumonia Electronically signed by Martin Lopez 03-14-2024 4:43 PM
--- NOTE | 2024-03-14 17:14 | Anesthesiology Progress Note ---
Date of Service March 14, 2024 Anesthesia Post Procedure Vital Signs Vital Signs: Temp Pulse Pulse Pulse Resp BP BP 03/14/24 17:11 03/14/24 17:00 90 22 99/60 L 03/14/24 16:50 36.8 C 86 20 93/56 L 03/14/24 16:40 84 21 97/57 L 03/14/24 16:30 86 23 88/52 L 03/14/24 16:21 36.0 C L 88 16 95/55 L 03/14/24 15:05 74 03/14/24 14:15 36.8 C 77 20 112/73 03/14/24 11:16 36.8 C 74 17 104/64 03/14/24 11:16 03/14/24 07:27 36.8 C 86 17 113/69 03/14/24 07:15 92 H 03/14/24 07:15 03/14/24 07:14 79 17 03/14/24 03:20 37.0 C 79 18 98/61 L 03/13/24 23:00 87 03/13/24 22:53 37.0 C 78 18 99/64 L 03/13/24 21:40 03/13/24 19:31 37.0 C 81 18 104/66 03/13/24 19:31 82 17 Pulse Ox O2 Del Method O2 Del Method O2 Flow Rate O2 Flow Rate 03/14/24 17:11 Mechanical Vent 03/14/24 17:00 100 Oxymask 3 03/14/24 16:50 100 Oxymask 3 03/14/24 16:40 100 Oxymask 3 03/14/24 16:30 100 Oxymask 6 03/14/24 16:21 100 Oxymask 6 03/14/24 15:05 03/14/24 14:15 97 Nasal Cannula 3 03/14/24 11:16 98 Nasal Cannula 3 03/14/24 11:16 Nasal Cannula 3 03/14/24 07:27 97 Nasal Cannula 3 03/14/24 07:15 03/14/24 07:15 Nasal Cannula 4 03/14/24 07:14 95 Nasal Cannula 4 03/14/24 03:20 99 Nasal Cannula 4 03/13/24 23:00 03/13/24 22:53 97 Nasal Cannula 4 03/13/24 21:40 Nasal Cannula 4 03/13/24 19:31 99 Nasal Cannula 3 03/13/24 19:31 96 Nasal Cannula 3 Transfer of Care Handoff Completed per policy Notes Mental Status: alert / awake / arousable Patient Amnestic to Procedure: Yes Nausea / Vomiting: adequately controlled Pain: adequately controlled Airway Patency, RR, SpO2: stable & adequate BP & HR: stable & adequate Hydration State: stable & adequate Anesthetic Complications: no major complications apparent
[2024-03-14 17:36] LABS: Fluid Mono/Macrophage 4 %; Lymphocyte Body Fluid Man 1 %; Neutrophil Body Fluid Man 95 %
[2024-03-14] MEDS: ESCITALOPRAM OXALATE 10 MG TAB PO SCH (17:45)
--- NOTE | 2024-03-14 17:58 | Billing Data ---
Date of Service March 14, 2024 Coding Level of Care Code 83088 SUB INP/OBS CARE
[2024-03-14] MEDS: FIBERSOURCE HN 1.2 CAL 1000 ML BAG GT SCH (21:10)
[2024-03-14] MEDS: TUBE FEEDING WATER FLUSH GT SCH (21:15)
--- NOTE | 2024-03-14 22:14 | Electrocardiogram Report ---
Test Reason : Blood Pressure : */* mmHG Vent. Rate : 128 BPM Atrial Rate : 128 BPM P-R Int : 192 ms QRS Dur : 128 ms QT Int : 298 ms P-R-T Axes : * -68 105 degrees QTcB Int : 435 ms Possible Sinus tachycardia Left axis deviation Left bundle branch block Abnormal ECG When compared with ECG of 09-Apr-2023 19:50, No significant change Confirmed by Wong Briggs ([id number]) on 03/14/2024 10:14:00 PM Referred By: REFERRED SELF Confirmed By: Wong Briggs
[2024-03-14] MEDS: ACETAMINOPHEN 650 MG/65 ML VIAL IV PRN (23:42)
--- NOTE | 2024-03-15 07:56 | XRay Report ---
EXAM: XR chest 1V portable CLINICAL HISTORY: FOLLOW UP KAA/KAB TECHNIQUE: X-ray of the chest was performed in 1 view: AP view COMPARISON: X-ray chest dated 03/14/2024. FINDINGS: Right basal paracardiac opacity in probable relation to atelectasis. Opacity in left costophrenic angle in probable relation to pleural effusion/atelectasis. Normal configuration of the mediastinum. The jones are normal in size and position. The cardiac size appears enlarged. The bony thorax is unremarkable. The right costophrenic and cardiophrenic angles are clear. IMPRESSION: 1. Still noted right basal, para-cardiac, opacity in probable relation to atelectasis. 2. Still noted opacity in left costophrenic angle in probable relation to pleural effusion/atelectasis. 3. No significant interval changes. Electronically signed by Peyton Mota 03-15-2024 07:55 AM
[2024-03-15 08:54] LABS: Basophils # (auto) 0.01 K/uL (0.00-0.20); Basophils % (auto) 0.2 %; Eosinophils # (auto) 0.01 K/uL (0.00-0.50); Eosinophils % (auto) 0.2 %; Hemoglobin 9.9 g/dl (12.0-16.0); Immature Granulocytes # (auto) 0.04 K/uL (0.01-0.20); Immature Granulocytes % (auto) 0.6 %; Lymphocytes # (auto) 0.99 K/uL (1.20-3.40); Mean Corpuscular Hgb Conc 30.9 g/dL (32.0-36.0); Mean Corpuscular Volume 93.8 fL (80.0-100.0); Monocytes # (auto) 0.31 K/uL (0.11-0.59); Neutrophils # (auto) 4.82 K/uL (1.40-6.50); Platelet Count 181 K/uL (130-400); RDW Coefficient of Variation 12.9 % (11.5-14.5); RDW Standard Deviation 44.2 fL (36.4-46.3); Red Blood Count 3.41 M/uL (4.20-5.40); White Blood Count 6.18 K/ul (4.8-10.8)
--- NOTE | 2024-03-15 09:22 | Pulmonology Progress Note ---
Date of Service March 15, 2024 Assessment & Plan (1) Pneumonia, aspiration: (2) Acute hypoxemic respiratory failure: (3) Rhinovirus infection: (4) Acute dyspnea: (5) Achalasia: (6) Muscle wasting: (7) COPD (chronic obstructive pulmonary disease): (8) Bronchiectasis: (9) Mixed restrictive and obstructive lung disease: Plan CTA chest 03/12/2024 personally reviewed:Collapse of the right lower lobe with debris in the RBI Chronic collapse of the left lower lobe Right upper lobe 3 mm pulmonary nodule Dilated esophagus No significant mediastinal lymphadenopathy PFT 08/25/2023 personally reviewed: Suboptimal test, severe restrictive lung dysfunction, no obstruction, air trapping, insignificant bronchodilator response, mild decrease in DLCO (Decrease in FVC by 270 mL, no significant change in FEV1, DLCO or TLC compared to 03/18) FVC 1.33 L 37%, FEV1 1.09 L 37%, FEV1/FVC 82%, ERV 36%, RV 142%, TLC 73%, RV/TLC 194%, DLCO 63%, DLCO/VA 107% --Acute on chronic hypoxic respiratory failure On 1 L at rest and 3 L on exertion at baseline Likely secondary to aspiration with debris in the RBI --> patient did admit to eating by mouth at home Known history of aspiration Right lower lobe collapse, chronic left lower lobe collapse Respiratory BioFire was positive for entero/rhinovirus Continue with hypertonic saline, chest vest --COPD with restrictive pattern Approximately [id number] smoking history quit in March 2019 Restriction is likely coming from mild kyphosis that she has as well as chronic left lower lobe collapse Patient's alpha-1 antitrypsin level within normal limits. Phenotype MM, Normal Continue with Anoro on a daily basis Advised to be more compliant --Chronic left lower lobe collapse New compared to CT chest 04/2019, likely present on x-ray 11/28/2022 On hypertonic saline along with DuoNebs to be used twice a day which will be followed up with flutter valve --Bronchiectasis Likely secondary chronic aspiration pneumonia bilateral lower lobes, more on the right side Patient has flutter valve, advised patient to be more compliant with it. Continue with incentive spirometry Repeat videofluoroscopy 02/06/2022 continues to show tracheal aspiration with multiple consistencies. Patient has followed up with speech therapy --Active marijuana use Advised to quit --Ex-smoker Approximately [id number] smoking history Quit in 2019 Encouraged to continue abstinence from smoking --Achalasia PEG tube removed in 2020, Replaced early in 2023 Following up with GI for that. Admission and Anticipated Discharge Date Admission Date: March 12, 2024 Supervising Physician Co-Signing Physician Notes I saw and evaluated the patient with Dominic Rawls PA-C, and agree with findings and plan as documented in the note. Patient seen and examined at bedside. No acute distress, no adverse events overnight She was a little emotional when I entered the room. She apologized that she lie d. She acknowledged that she has been eating by mouth although she is not supposed to Saturation was 92-93% on 2 L nasal cannula. Denied any chest pain She is refusing to use the CoughAssist as it makes her claustrophobic. Importance of using it explained Constitutional: No acute distress, cachexia HEENT: EOMI, PERRLA Respiratory system: Decreased air entry bilaterally, no wheeze, no rhonchi, positive crackles bilateral lower lobes CVS: S1-S2 positive, positive 2 out of 6 systolic murmur appreciated best at aorta, tachycardia, regular rhythm Abdomen: Soft, nontender, nondistended, positive bowel sounds x4, positive PEG Extremities: +2 pulses bilaterally radialis/ dorsalis pedis, no cyanosis, no edema Neuro: Awake alert oriented x3 Psych: Normal mood and affect. G/U: No Howard Plan: Chest x-ray from today shows mild improvement compared to yesterday. Still chronic left lower lobe collapse. There is minimal improvement on the right lower lobe Continue antibiotics at this time. Continue with pulmonary toileting. Patient might benefit from CoughAssist on discharge. Appreciate case management's help with this. Please note the above document was generated using voice recognition software. It may contain grammatical, syntax or spelling errors.Any formal questions or concerns about the content, text or information contained within the body of this dictation should be directly addressed to the provider for clarification. Subjective Patient seen and evaluated at bedside. She reports a little bit of a sore throat today after her procedure yesterday, but otherwise reports her breathing is fine. She has had no chest pain or hemoptysis. She states that the nebulized therapies are helping her clear her secretions. Review of Systems Review of Systems: As per HPI Physical Exam Physical Exam: VITAL SIGNS Vital signs and nursing notes were reviewed. GENERAL 48-year-old female appearing her stated age who is in no acute distress. Communicates well with provider and answers questions appropriately. SKIN Without rashes or lesions. NOSE Midline and without cyanosis. MOUTH/OROPHARYNX Without perioral cyanosis. NECK Neck with FROM. LUNGS Chest wall evaluation demonstrates normal chest wall A:P diameter. Auscultation reveals decreased air entry bilaterally. CARDIAC RRR with S1/S2. No murmur, rubs, or gallops appreciated. EXTREMITIES Nail clubbing not present. No peripheral cyanosis. No pretibial edema present. +3/5 radial palpated throughout. PSYCH A&Ox3 and cooperates fully with examiner. Pt is very pleasant and interacts well with examiner. Skin: no rashes, warm and dry Lymphatic: no cervical or axillary lymphadenopathy Results & Data Results & Data Vital Signs (Past 12 Hours) Vital Signs Temp Pulse Pulse Resp BP Pulse Ox O2 Del Method 03/15/24 07:26 57 L 03/15/24 07:26 Nasal Cannula 03/15/24 07:25 77 16 93 Nasal Cannula 03/15/24 07:14 36.8 C 63 19 103/61 96 Nasal Cannula 03/15/24 02:55 36.5 C 65 15 93/58 L 98 Nasal Cannula 03/15/24 00:00 95 H 03/14/24 22:46 36.6 C 96 H 105/63 93 Nasal Cannula O2 Flow Rate 03/15/24 07:26 03/15/24 07:26 2 03/15/24 07:25 2.5 03/15/24 07:14 2 03/15/24 02:55 2 03/15/24 00:00 03/14/24 22:46 3 PG Care Time/CCT Total # of Minutes Spent Total Time Spent with Patient: Total time spent is greater than 50% in coordination of care (as documented) at patient's floor/unit and/or counseling patient: Coding Level of Care Code 91436 SUB INP/OBS CARE 2/35MIN Diagnoses Pneumonia, aspiration J69.0 Acute hypoxemic respiratory failure J96.01 Rhinovirus infection B34.8 Acute dyspnea R06.00 Achalasia K22.0 Muscle wasting M62.50 COPD (chronic obstructive pulmonary disease) J44.9 Bronchiectasis J47.9 Mixed restrictive and obstructive lung disease J43.9; J98.4
[2024-03-15 09:25] LABS: Albumin Globulin Ratio 0.9 (0.9-2); Albumin Level 2.9 gm/dl (3.4-5.0); BUN Creatinine Ratio 31.3 (10-20); Bilirubin,Total 0.4 mg/dl (0.2-1.0); Calcium 9.3 mg/dl (8.6-10.3); Creatinine Clr Calc Pharmacy 166.7 ml/min; Globulin 3.2 gm/dl (2.5-4.0); Potassium 3.5 mmol/L (3.5-5.1); Total Protein 6.1 gm/dl (6.0-8.3)
--- NOTE | 2024-03-15 10:33 | Hospitalist Progress Note ---
Date of Service March 15, 2024 Assessment & Plan (1) Rhinovirus infection: (2) Pneumonia, aspiration: (3) Uses feeding tube: (4) Severe protein-calorie malnutrition: (5) COPD (chronic obstructive pulmonary disease): (6) Chronic respiratory failure: (7) Achalasia: (8) Headache: Plan 48 years old with P/M/H of COPD, aspiration Pneumonia, Achalasia, PEG tube in situ admitted for recurrent aspiration Pneumonia. # Aspiration PNA: -Recurrent episode, not in Sepsis RFs: Achalasia, increased secretion in oral cavity, likely secondary to rhino virus infection. -Inv WBC: Trending down 16.13 k-----9.04> today BioFire: Rhino Virus +ve Chest Xray: Right Middle lobe Consolidation CT Chest Angio: PE ruled out, Patulous dilatation of Oesophagus with Tracheobronchial secretion, Bilateral basilar mucous plugging Consolidation in Right Middle, Bilateral Lower lobes. Nasal MRSA: Negative Mgmt: Zosyn 4.5 gm IV 8 hourly: D3 O2 4L /min Via Nasal canula Pulmo( appreciate rec): Recs Mucolytics, Chest vest therapy, Flutter valve Repeat Chest Xray: Left lower lobe collapse progressed, rest stable Plan: Bronchoscopy today( hold Enoxaparin) #Achalasia intermediate designer PEG tube for feeding Kept on hold during admission; to reduce r/o aspiration #Rhinovirus infection Symptoms: Increased secretion, headache. Nausea, Vomiting 4 mg IV Zofran PRN for nausea /15 mg IV Toradol PRN for headache Flonase nasal spray Mucinex on board by Pulmo; discussed is she need Glycopyrrolate, not recommended in setting of acute illness. #COPD Chronic stable, under home O2 2-3 L on nighttime Continued O2 on admission at 4L/min Home medications continued #Protein calorie Malnutrition Chronic; secondary to Achalasia Deranged LFTs, Likely sec to PCM trending down Nutrition consult: Modified PEG diet; will continue after starting PEG tube. #Anxiety/ Depression Long history per patient; Not under any chronic medication. Patient states she is depressed and want some medication. Lexapro 10 mg once daily added. Dispo: Admit to med/surg tele Full Code Status DVT : Lovenox 30mg q 24 hours( held today for broncho) Admission and Anticipated Discharge Date Admission Date: March 12, 2024 Subjective Patient seen and evaluated at bedside. She reports a little bit of a sore throat today after her procedure yesterday, but otherwise reports her breathing is fine. She has had no chest pain or hemoptysis. She states that the nebulized therapies are helping her clear her secretions. Review of Systems Review of Systems: As per HPI Physical Exam Physical Exam: Constitutional: Ill looking, Malnourished, No acute distress HEENT: Atraumatic, Normocephalic, No conjunctival injection CVS: S1 S2 no murmur, Regular Rhythm, no LE edema Respiratory: BL decreased air entry with coarse breath sound. No wheeze GI: Soft, Nondistended, Nontender, PEG tube in situ. Normal Peristomal skin. No signs of infection. MSK: No gross deformities noted Skin: Warm, Dry, No rashes Neuro: Alert, Oriented to TPP, No Focal deficit Psych: Mood and Affect congruent, Cooperative on exam Results & Data Results & Data Vital Signs (Past 12 Hours) Vital Signs Temp Pulse Pulse Resp BP Pulse Ox O2 Del Method 03/15/24 07:26 57 L 03/15/24 07:26 Nasal Cannula 03/15/24 07:25 77 16 93 Nasal Cannula 03/15/24 07:14 36.8 C 63 19 103/61 96 Nasal Cannula 03/15/24 02:55 36.5 C 65 15 93/58 L 98 Nasal Cannula 03/15/24 00:00 95 H 03/14/24 22:46 36.6 C 96 H 105/63 93 Nasal Cannula O2 Flow Rate 03/15/24 07:26 03/15/24 07:26 2 03/15/24 07:25 2.5 03/15/24 07:14 2 03/15/24 02:55 2 03/15/24 00:00 03/14/24 22:46 3
[2024-03-15 15:34] VITALS: RESP 20; TEMP 98.1; O2SAT 91
[2024-03-15 15:37] VITALS: BP 110/57
[2024-03-15 16:06] VITALS: PULSE 90
--- NOTE | 2024-03-15 16:12 | Discharge Summary ---
Discharge Summary Date of Service March 15, 2024 Principal Dx & Hospital Course #1 = Principal Diagnosis (1) Rhinovirus infection: (2) Pneumonia, aspiration: (3) Uses feeding tube: (4) Severe protein-calorie malnutrition: (5) COPD (chronic obstructive pulmonary disease): (6) Chronic respiratory failure: (7) Achalasia: (8) Headache: Plan 48 years old with P/M/H of COPD, aspiration Pneumonia, Achalasia, PEG tube in situ admitted for recurrent aspiration Pneumonia. # Aspiration PNA: -Recurrent episode, not in Sepsis RFs: Achalasia, increased secretion in oral cavity, likely secondary to rhino virus infection. -Inv WBC: Trending down 16.13 k-----9.04> today [employer]: Rhino Virus +ve Chest Xray: Right Middle lobe Consolidation CT Chest Angio: PE ruled out, Patulous dilatation of Oesophagus with Tracheobronchial secretion, Bilateral basilar mucous plugging Consolidation in Right Middle, Bilateral Lower lobes. Nasal MRSA: Negative Mgmt: Zosyn 4.5 gm IV 8 hourly: D3 --> finish out course with augmentin. 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 Patient states she is depressed and want some medication. Lexapro 10 mg once daily added. DVT proph - lovenox in discussion with pt she felt up to going home, really wanted to go home today (discussed today vs tomorrow and she was clear/almost adamant for today) - O2 set up, abx sent, safe/stable for discharge today. PCP/nutrition follow up as outpt rec'd. Notes For Next Care Provider Medication Changes From Visit augmentin to complete course for pneumonia Admission HPI Per Admitting Provider 48 years L[place]ou with P/M/H of COPD, Aspiration pneumonia, Achalasia under PEG tube, Migraines admitted via ED for Recurrent Aspiration Pneumonia. She mention not feeling well since last 2-3 days. She initially had symptoms of flu, running nose, throat irritation, which she thinks she got transmitted from her Mom. Mom was sick with flu for some time. She has had Cough, different than her baseline, productive, whitish moderate sputum, with 2 episode of post cough vomiting. She vomited clear liquid twice. No blood in sputum or vomitus. She endorses some SOB, however its not bothering her that much. She feels SOB was worsened while she presented to ED likely because she did not get Oxygen on the way to ED. She uses O2 via Nasal canula at 2-3 L throughout night and when she is doing some activities. She has baseline SOB as well. Mentions some frontal headache, mild aching which she thinks could be because of her migraine. She has PEG tube for her swallowing issue( Achalasia), takes nothing by mouth, she only feeds herself with food supply via PEG. it keeps running in nighttime from 6PM to 6 AM. Endorses normal bowel, bladder habit. Bowel movement everyday. PMH: Reviewed Drug and Allergy: No allergy Personal history reviewed I discussed code status with her, she is a Full Code. Updated Medication List Medication Instructions Recorded Confirmed Type nutrition gysh-[id number]-TCD-fiber 1 ea G-tube DAILY@1800 #6,000 mL 04/06/23 03/12/24 Rx 0.05 gram-1.2 kcal/mL tube feed liquid (Fibersource HN) Rollator Walker #1 ea 04/28/23 06/16/23 Rx Shower Chair #1 ea 04/28/23 06/16/23 Rx albuterol sulfate 90 mcg/actuation 2 puff inhalation QID PRN 08/25/23 03/12/24 Rx aerosol inhaler Shortness Of Breath #18 grams ipratropium 0.5 mg-albuterol 3 mg 3 ml inhalation Q8H PRN shortness 08/25/23 03/12/24 Rx (2.5 mg base)/3 mL nebulization of breath or wheezing #180 mL soln nebulizers (Aeroneb Go Nebulizer) #1 ea 08/25/23 08/25/23 Rx sodium chloride 7 % for 1 inh inhalation BID #240 mL 08/25/23 03/12/24 Rx nebulization umeclidinium 62.5 mcg-vilanterol 1 inh inhalation DAILY #60 ea 08/25/23 03/12/24 Rx 25 mcg/actuation powdr for inhalation (Anoro Ellipta) multivitamin 1 tab PO DAILY 03/12/24 03/12/24 History amoxicillin 250 mg-potassium 17.5 ml PO Q12H Aspiration 03/15/24 Rx clavulanate 62.5 mg/5 mL oral Pneumonia 4 days #140 mL suspension (Augmentin) escitalopram oxalate 10 mg tablet 10 mg PO DAILY 60 days #60 tabs 03/15/24 Rx fluticasone propionate 50 2 spray intranasal DAILY PRN nasal 03/15/24 Rx mcg/actuation nasal congestion #16 grams spray,suspension (Flonase Allergy Relief) melatonin 3 mg capsule 3 mg PO HS #30 caps 03/15/24 Rx Hospital Stay Data Consultations 03/12/24 14:00 ED Decision to Admit Stat 03/12/24 14:36 Consult Pulmonology Routine Procedures Performed Operation Date: 03/14/24 14:55 Actual Procedures p Bronchoscopy, bronchoalveolar lavage. - Viraj Jackson MD, [facility] Diagnostic Imagining Performed 03/12/24 09:29 CT angio chest PE protocol Stat Pending Results Patient Have Any Pending Studies at Discharge: No Discharge Instructions Given to Patient (Per Discharging Provider) You were admitted to the hospital for Recurrent Aspiration Pneumonia along with Rhino Virus Infection. You were treated with Antibiotics, and IV fluids. You PEG tube was kept on hold to reduce chance of aspiration. Bronchoscopy was done by component prep operator, secretion was suctioned and they did not see any other cause of lung collapse like mass. A discharge summary will be sent to your primary care physician to ensure continuity of care. Please bring this discharge summary with you to your next office appointment so that your provider can review it at that time. Follow-up appointments: Make a follow-up appointment with your PCP within the next week. It is very important that you follow up with them shortly after discharge from the hospital. Keep all your follow-up appointments as already scheduled. If you cannot make an appointment, notify your provider. Medications: Your medication list has been reviewed and reconciled upon discharge to ensure accuracy and continuity of care. An updated list of all your medications is included with your hospital discharge paperwork. Please review this list closely, and make note of any changes. If you have any issues filling these prescriptions, please call [phone] and ask to leave a message for Dr. Lisa Azul. Take your medications as instructed; do not skip a dose of your medicines. Make sure all of your doctors know every medicine you are taking (including sxqq-tkd-ldfoqnb medicines, vitamins, and supplements). Call your primary care provider before taking any new medicines (including over- the-counter medicines, vitamins, and supplements), because some of these may interact with your current medications, or may make your symptoms worse. Tell your primary care provider if you cannot afford your medications. CONTACT YOUR PRIMARY CARE PROVIDER if you experience any of the following: Worsening of symptoms Fever, chills, or fatigue Difficulty following your treatment plan, or difficulty taking medications CALL 911 OR GO TO THE EMERGENCY DEPARTMENT if you experience any of the following: Sudden, severe abdominal pain or nausea/vomiting Severe chest pain, or chest pain that radiates (moves) to your jaw or arm Sudden, severe shortness of breath or difficulty breathing Thank you for allowing us to participate in your care Total Time Total Time Spent Total Time Spent (In Minutes): <30
--- NOTE | 2024-03-15 16:12 | Billing Data ---
Date of Service March 15, 2024 Coding Level of Care Code 41731 IN/OBS DISCH 30 MIN/LESS
--- NOTE | 2024-03-15 16:59 | Discharge Summary ---
Date of Service March 15, 2024 Admission HPI Per Admitting Provider 48 years [place] with P/M/H of COPD, Aspiration pneumonia, Achalasia under PEG tube, Migraines admitted via ED for Recurrent Aspiration Pneumonia. She mention not feeling well since last 2-3 days. She initially had symptoms of flu, running nose, throat irritation, which she thinks she got transmitted from her Mom. Mom was sick with flu for some time. She has had Cough, different than her baseline, productive, whitish moderate sputum, with 2 episode of post cough vomiting. She vomited clear liquid twice. No blood in sputum or vomitus. She endorses some SOB, however its not bothering her that much. She feels SOB was worsened while she presented to ED likely because she did not get Oxygen on the way to ED. She uses O2 via Nasal canula at 2-3 L throughout night and when she is doing some activities. She has baseline SOB as well. Mentions some frontal headache, mild aching which she thinks could be because of her migraine. She has PEG tube for her swallowing issue( Achalasia), takes nothing by mouth, she only feeds herself with food supply via PEG. it keeps running in nighttime from 6PM to 6 AM. Endorses normal bowel, bladder habit. Bowel movement everyday. PMH: Reviewed Drug and Allergy: No allergy Personal history reviewed I discussed code status with her, she is a Full Code. Admission Exam Per Admitting Provider Constitutional: Ill looking, Malnourished, No acute distress HEENT: Atraumatic, Normocephalic, No conjunctival injection CVS: S1 S2 no murmur, Regular Rhythm, no LE edema Respiratory: BL decreased air entry with coarse breath sound. No wheeze GI: Soft, Nondistended, Nontender, PEG tube in situ. Normal Peristomal skin. No signs of infection. MSK: No gross deformities noted Skin: Warm, Dry, No rashes Neuro: Alert, Oriented to TPP, No Focal deficit Psych: Mood and Affect congruent, Cooperative on exam Principal Diagnosis Recurrent Aspiration PNA Achalasia with PEG insitu Discharge Exam Constitutional: Ill looking, Malnourished, No acute distress HEENT: Atraumatic, Normocephalic, No conjunctival injection CVS: S1 S2 no murmur, Regular Rhythm, no LE edema Respiratory: BL decreased air entry with coarse breath sound. No wheeze GI: Soft, Nondistended, Nontender, PEG tube in situ. Normal Peristomal skin. No signs of infection. MSK: No gross deformities noted Skin: Warm, Dry, No rashes Neuro: Alert, Oriented to TPP, No Focal deficit Psych: Mood and Affect congruent, Cooperative on exam Discharge Data Allergies Allergy/AdvReac Type Severity Reaction Status Date / Time No Known Allergies Allergy Verified 03/12/24 12:18 Consultations 03/12/24 14:00 ED Decision to Admit Stat 03/12/24 14:36 Consult Pulmonology Routine Procedures Performed Operation Date: 03/14/24 14:55 Actual Procedures p Bronchoscopy, bronchoalveolar lavage. - Viraj Jackson MD, [facility] Ordered Studies 03/12/24 09:29 CT angio chest PE protocol Stat Hospital Course (1) Rhinovirus infection: (2) Pneumonia, aspiration: (3) Uses feeding tube: (4) Severe protein-calorie malnutrition: (5) COPD (chronic obstructive pulmonary disease): (6) Chronic respiratory failure: (7) Achalasia: (8) Headache: Plan 48 years old with P/M/H of COPD, aspiration Pneumonia, Achalasia, PEG tube in situ admitted for recurrent aspiration Pneumonia. # Aspiration PNA: -Recurrent episode, not in Sepsis - Improved with Zosyn 4.5 gm for 3 days; will continue Augmentin 875-125 BID for 4 more days( 7 days total). - O2 continued at home; portable O2 ordered. - Bronchoscopy: No e/o mass, Suctioned secretion--- Patient felt better. 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 Total Time Total Time Spent Total Time Spent (In Minutes): See attending's attestation Discharge Plan Discharge Items Patient Disposition: Home - Self-Care Reason For Visit: ASPIRATION PNEUMONIA Discharge Diagnosis: Aspiration Pneumonia Rhino Virus infection Activity: Resume your previous activity Non-emergency contact: Primary Care Provider and Traffic Controller [employer] Call non-emergency contact if: your symptoms worsen and your temperature is above 101.5 Follow-up/Referrals: Deonte Cortés, [Primary Care Provider] - 03/23/24 1:00 pm Diet: Other - See Diet Comment Addtl Attending Provider Instructions: You were admitted to the hospital for Recurrent Aspiration Pneumonia along with Rhino Virus Infection. You were treated with Antibiotics, and IV fluids. You PEG tube was kept on hold to reduce chance of aspiration. Bronchoscopy was done by machinist brake, secretion was suctioned and they did not see any other cause of lung collapse like mass. A discharge summary will be sent to your primary care physician to ensure continuity of care. Please bring this discharge summary with you to your next office appointment so that your provider can review it at that time. Follow-up appointments: Make a follow-up appointment with your PCP within the next week. It is very important that you follow up with them shortly after discharge from the hospital. Keep all your follow-up appointments as already scheduled. If you cannot make an appointment, notify your provider. Medications: Your medication list has been reviewed and reconciled upon discharge to ensure accuracy and continuity of care. An updated list of all your medications is included with your hospital discharge paperwork. Please review this list closely, and make note of any changes. If you have any issues filling these prescriptions, please call [phone] and ask to leave a message for Dr. Lisa Azul. Take your medications as instructed; do not skip a dose of your medicines. Make sure all of your doctors know every medicine you are taking (including imas-kdd-ajmixrw medicines, vitamins, and supplements). Call your primary care provider before taking any new medicines (including over- the-counter medicines, vitamins, and supplements), because some of these may interact with your current medications, or may make your symptoms worse. Tell your primary care provider if you cannot afford your medications. CONTACT YOUR PRIMARY CARE PROVIDER if you experience any of the following: Worsening of symptoms Fever, chills, or fatigue Difficulty following your treatment plan, or difficulty taking medications CALL 911 OR GO TO THE EMERGENCY DEPARTMENT if you experience any of the following: Sudden, severe abdominal pain or nausea/vomiting Severe chest pain, or chest pain that radiates (moves) to your jaw or arm Sudden, severe shortness of breath or difficulty breathing Thank you for allowing us to participate in your care Pending Studies at Discharge: No Stand-Alone Forms: My [employer], Smoking Cessation Medications and DC Order Prescriptions: New escitalopram oxalate 10 mg tablet 10 mg PO DAILY 60 Days Qty: 60 0RF fluticasone propionate [Flonase Allergy Relief] 50 mcg/actuation spray,suspension 2 spray intranasal DAILY PRN (Reason: nasal congestion) Qty: 16 0RF Rx Instructions: administer into each nostril melatonin 3 mg capsule 3 mg PO HS Qty: 30 0RF amoxicillin-pot clavulanate [Augmentin] 250-62.5 mg/5 mL suspension for reconstitution 17.5 ml PO Q12H 4 Days Qty: 140 0RF Rx Instructions: Patient has PEG tube for feeding. She will take suspension through it. Continued [place] Rollator Walker See Rx Instructions .Route .MEDSUPPLY Qty: 1 0RF Rx Instructions: Use to aid in ambulation ([facility] Shower Chair [facility] See Rx Instructions .Route Qty: 1 0RF Rx Instructions: Use to aid in safety during bathing albuterol sulfate 90 mcg/actuation HFA aerosol inhaler 2 puff Inhalation QID PRN (Reason: Shortness Of Breath) Qty: 18 3RF Rx Instructions: Per patient, she needs more of this. Is out. Anoro Ellipta 62.5-25 mcg/actuation blister with device 1 inh inhalation DAILY Qty: 60 12RF Rx Instructions: Per patient, she needs more of this. Is out. ipratropium-albuterol 0.5 mg-3 mg(2.5 mg base)/3 mL solution for nebulization 3 ml inhalation Q8H PRN (Reason: shortness of breath or wheezing) Qty: 180 3RF Rx Instructions: Per patient, she needs more of this. Is out. ([facility]) nebulizers [Aeroneb Go Nebulizer] [facility] See Rx Instructions .MEDSUPPLY Qty: 1 0RF Rx Instructions: With tubing and supplies. J44.9. J45.9. sodium chloride 7 % solution for nebulization 1 inh inhalation BID Qty: 240 3RF Rx Instructions: Per patient, she needs more of this. Is out. Fibersource HN 0.05 gram- 1.2 kcal/mL Liquid 1 ea G-tube DAILY@1800 Qty: 6000 0RF Rx Instructions: fibersource 90ml/hr for 12 hours a day water 50 ml before and after, 120 tid during day multivitamin Tablet 1 tab PO DAILY Discharge Orders: Discharge Order (Routine); Ordered 03/15/24 Ordered By: Lisa Fay/Other Patient Handouts: COPD Caregivers, Bronchiectasis Dc Admission Data Admit Date/Time: 03/12/24 14:34 Attending Provider: Leonard Coombs Admit Provider: Libra Chambers Primary Care Provider: Deonte Cortés Other Providers: Jeanne Gamble; Atilio Damon Other Interventions: Discharge Summary Assessment (RN) Last Done: 03/15/24 16:01
== END 2024-03-15 18:22 | disposition home or self-care (01) | DRG 177 ==
LOC: ED 09:18 → SUATTDRO 14:34 → 2S 14:34
DX: Z93.1 Gastrostomy status; J98.19 Other pulmonary collapse; F32.A Depression, unspecified; J44.9 Chronic obstructive pulmonary disease, unspecified; F17.210 Nicotine dependence, cigarettes, uncomplicated; F41.9 Anxiety disorder, unspecified; J69.0 Pneumonitis due to inhalation of food and vomit; J96.21 Acute and chronic respiratory failure with hypoxia; E43 Unspecified severe protein-calorie malnutrition; B34.8 Other viral infections of unspecified site; M62.50 Muscle wasting and atrophy, not elsewhere classified, unspecified site; K22.0 Achalasia of cardia